=== PATIENT | male | born 1950 | race American Indian/Alaskan Native ===

== ENCOUNTER 2016-11-08 10:59 | Inpatient (IN) | payer OTHER ==
[2016-11-08 11:07] VITALS: BMI 33.9
[2016-11-08] MEDS ORDERED: Morphine 2 mg/ml ISec IVP STA ×2 (11:28→12:23)
--- NOTE | 2016-11-08 11:38 | ED PDOC ---
Arrival/HPI - General Time Seen by Provider: 11/08/16 11:03 Historian: Patient - History of Present Illness Narrative History of Present Illness (Text): 11/08/16 11:10 A 65 year old male, whose past medical history includes diabetes mellitus, lower extremity edema, CHF, and sciatica, presents to the emergency department with gradually worsening back pain due to sciatica, which began 1 month ago, but as of yesterday the patient states that he is unable to walk. The patient states the pain radiates from his left lower buttock down his left leg. The patient also reports of shortness of breath on exertion, which he associates with his back pain. He also notes of lower extremity edema and scrotal edema, states however this is chornic. Patient states he has not had any imaging of his back pain, and there is no associated known injury or trauma. Denies incontinence of urine or stool. Denies acute numbness or weakness to the legs. Time/Duration: Other (1 month) Symptom Onset: Gradual Symptom Course: Worsening Activities at Onset: Light Context: Home Past Medical History - Provider Review Nursing Documentation Reviewed: Yes Family/Social History - Physician Review Nursing Documentation Reviewed: Yes Family/Social History: Unknown Family HX Allergies/Home Meds Allergies/Adverse Reactions: Allergies No Known Allergies Allergy (Verified 11/08/16 11:14) Home Medications: Home Meds Medication Instructions Recorded Confirmed Unobtainable 11/08/16 11/08/16 Review of Systems - Review of Systems Constitutional: absent: Fevers Eyes: absent: Vision Changes ENT: absent: Hearing Changes Respiratory: SOB Cardiovascular: Edema, DASILVA. absent: Chest Pain Gastrointestinal: absent: Abdominal Pain, Diarrhea, Nausea Genitourinary Male: Urinary Output Changes. absent: Dysuria Musculoskeletal: Back Pain Skin: Ulcer, Other Neurological: Gait Changes. absent: Headache, Focal Weakness Endocrine: absent: Polyuria Physical Exam - Physical Exam Narrative Physical Exam (Text): 11/08/16 11:42 Head: Atraumatic. Normocephalic. Eyes: PERRL. EOMI. Conjunctivae are not pale. ENT: Mucous membranes are moist and intact. Oropharynx is clear and symmetric. Neck: Supple. Full ROM. Positive JVD. No meningeal signs. Nontender. Cardiovascular: Regular rate. Regular rhythm. Systolic murmur noted. No rubs or gallops. Pulmonary/Chest: Rales at the bases, no tachypnea or respiratory distress noted. No accessory muscle usage. Abdominal: Distended but nontender there is edema to lower abdomen. Genitourinary: scrotal edema Back: No CVA tenderness. Severe lower lumbar paraspinal tenderness with direct palpation as well as left buttock pain, no erythema or edema or fluctuance noted , pain with straight leg testing. Extremities: Bilateral lower extremity edema. There are dressings on both feet/ ankles with no surrounding erythema or purulent drainage. Skin: Edema and ulcers noted to the lower extremity Neurological: Alert, awake, and oriented to person, place, time, and situation. Normal speech. No saddle anesthesia. Motor and sensory exam intact. No meningeal signs. Psychiatric: Good eye contact. Normal interaction, affect, and behavior. Vital Signs Reviewed: Yes Vital Signs Temp Pulse Resp BP Pulse Ox 11/08/16 16:32 65 18 141/71 11/08/16 15:47 65 18 141/71 100 11/08/16 14:59 143/75 11/08/16 14:00 67 18 143/75 100 11/08/16 12:09 69 18 145/79 100 11/08/16 11:07 98.0 F 73 18 148/87 100 Temperature: Afebrile Blood Pressure: Normal Pulse: Regular Respiratory Rate: Normal Appearance: Positive for: Non-Toxic, Uncomfortable Pain Distress: Severe Mental Status: Positive for: Alert and Oriented X 3 Medical Decision Making ED Course and Treatment: 11/08/16 11:42 Impression: A 65 year old male with back pain. Also has edema and SOB with exertion Differential Diagnosis included but are not limited to: Lumbar Radiculopathy vs. Lumbar Bone Disease vs. Sciatica vs chf, vs cad Plan: -- EKG -- Chest X-ray -- LS Spine AP/LAT -- Morphine -- Urinalysis -- Reassess and disposition Progress Notes: Patient has no prior visits in [facility] although history and PMHx reviewed with patient and family. He reports prior hx of CAD, CHF, chronic leg ulcers, HTN. Has had back pain for one month diagnosed as sciatica by his physician at [facility]. Reports he was referred to pain management but has not had any previous MRI or imaging of his back to his knowlege. He reports pain as "12/10". He states he was taking Advil for pain with no relief. On exam he is in severe discomfort, although neurovascular exam is initially intact. As he reports prior history of "kidney problems", NSAIDS not given, IV morphine given 11/08/16 12:20 Upon reevaluation patient does not have any relief from pain medication and I will be ordering an additional Morphine dosage. No obvious lytic lesions noted on xrays, although I feel patient requires further evaluation as pain has become more severe. CXR consistent with pulmonary vascular congestion, elevated BNP noted. Given sob with exertion, leg edema, elevated BNP suspect component of CHF, dose of Lasix ordered. Pain improved but persistent after Morphine. Denies prior hx of known cancer, denies any other bony pain at this time. Patient noted to be anemic with elevated Cr. No baseline available at this time. Will admit for CHF, renal insufficiency, anemia, intractable back pain. Case discussed with Dr. Gaurav Avery covering for on-call physician, accepts patient to Dr. Faith' service. Case d/w resident covering for Dr. Faith, care transferred to admitting team. - Lab Interpretations Lab Results: 11/08/16 11:30 11/08/16 11:30 Lab Results 11/08/16 13:00: NT-Pro-B Natriuret Pep 07614 H 11/08/16 11:30: Retic Count 2.00 H 11/08/16 11:30: Digoxin 0.8 11/08/16 11:30: Sodium 148, Potassium 4.7, Chloride 115 H, Carbon Dioxide 22, Anion Gap 16, BUN 100 H, Creatinine 3.3 H, Est GFR ( Amer) 23, Est GFR ( Non-Af Amer) 19, Random Glucose 155 H, Calcium 8.8, Total Bilirubin 1.4 H, AST 42, ALT 31, Alkaline Phosphatase 190 H, Lactate Dehydrogenase 1096 H, Total Creatine Kinase 278 H, CK-MB (CK-2) 5.3 H, CK-MB (CK-2) % 1.9 L, Troponin I 0.09 , Total Protein 7.3, Albumin 3.1, Globulin 4.2, Albumin/Globulin Ratio 0.7 L 11/08/16 11:30: PT 16.1 H, INR 1.49 H, APTT 29.0 11/08/16 11:30: WBC 11.0, RBC 3.28 L, Hgb 9.5 L, Hct 30.2 L, MCV 92.1, MCH 29.0 , MCHC 31.5, RDW 19.7 H, Plt Count 172, MPV 10.7, Gran % 86.4 H, Lymph % (Auto) 5.7 L, [place] % (Auto) 4.5, Eos % (Auto) 3.2, Baso % (Auto) 0.2, Gran # 9.53 H, Lymph # 0.6 L, [place] # 0.5, Eos # 0.4, Baso # 0.02, Corrected WBC (Man) Cancelled , Neutrophils % (Manual) Cancelled, Band Neutrophils % Cancelled, Lymphocytes % (Manual) Cancelled, Atypical Lymphs % Cancelled, Monocytes % (Manual) Cancelled , Eosinophils % (Manual) Cancelled, Basophils % (Manual) Cancelled, Metamyelocytes % Cancelled, Myelocytes % Cancelled, Promyelocytes % Cancelled, Nucleated RBC % Cancelled, Hypersegmented Polys Cancelled, Immature Lymphocytes Cancelled, Blast Cells Cancelled, Smudge Cells Cancelled, Toxic Granulation Cancelled, Dohle Bodies Cancelled, Belkis Rods Cancelled, Platelet Evaluation Cancelled, Plt Clumps, EDTA Cancelled, Large Platelets Cancelled, Giant Platelets Cancelled, Polychromasia Cancelled, Hypochromasia Cancelled, Hyperchromasia Cancelled, Poikilocytosis (manual Cancelled, Basophilic Stippling Cancelled, Anisocytosis (manual) Cancelled, Microcytosis (manual) Cancelled, Macrocytosis (manual) Cancelled, Spherocytes Cancelled, Sickle Cells Cancelled, Target Cells Cancelled, Tear Drop Cells Cancelled, Ovalocytes Cancelled, Stomatocytes Cancelled, Helmet Cells Cancelled, [place] Rings Cancelled , Mcgregor Cells Cancelled, Acanthocytes (Spur) Cancelled, Rouleaux Cancelled I have reviewed the lab results: Yes - RAD Interpretation Radiology Orders: 11/08/16 11:27 CHEST ONE VIEW [RAD] Stat 11/08/16 11:28 LS SPINE AP/LAT [RAD] Stat - EKG Interpretation EKG Interpretation (Text): EKG at 11:30 normal sinus rhythm rate of 69 with low voltage qs, no prior for comparison Interpreted by ED Physician: Yes Type: 12 lead EKG - Medication Orders Current Medication Orders: Aspirin (Aspirin Chewable) 81 mg PO DAILY [facility] Atorvastatin Calcium (Lipitor) 40 mg PO DIN JAVIER Carvedilol (Coreg) 3.125 mg PO BID JAVIER Furosemide (Lasix) 40 mg IVP Q12 [facility] Heparin Sodium (Porcine) (Heparin) 5,000 units SC Q12 JAVIER PRN Reason: Protocol Last Admin: 11/08/16 21:26 Dose: 5,000 units Insulin Human Regular (Humulin R Low) 0 units SC ACHS JAVIER PRN Reason: Protocol Last Admin: 11/08/16 17:50 Dose: 2 units Morphine Sulfate (Morphine) 2 mg IVP Q4H PRN PRN Reason: Pain, severe (8-10) Pantoprazole Sodium (Protonix Inj) 40 mg IVP DAILY JAVIER Spironolactone (Aldactone) 25 mg PO BID JAVIER Discontinued Medications Furosemide (Lasix) 40 mg IVP ONCE ONE Stop: 11/08/16 14:16 Last Admin: 11/08/16 14:59 Dose: 40 mg Insulin Human Regular (Humulin R) Confirm Administered Dose 2 units .ROUTE .STK- MED ONE Stop: 11/08/16 17:27 Morphine Sulfate (Morphine) 2 mg IVP STAT STA Stop: 11/08/16 11:29 Last Admin: 11/08/16 12:02 Dose: 2 mg Morphine Sulfate (Morphine) 4 mg IVP STAT STA Stop: 11/08/16 12:26 Last Admin: 11/08/16 12:56 Dose: 4 mg - Scribe Statement The provider has reviewed the documentation as recorded by the Antonieta Delatorre Provider Scribe Attestation: All medical record entries made by the Edieibbrock were at my direction and personally dictated by me. I have reviewed the chart and agree that the record accurately reflects my personal performance of the history, physical exam, medical decision making, and the department course for this patient. I have also personally directed, reviewed, and agree with the discharge instructions and disposition. Disposition/Present on Arrival - Present on Arrival Any Indicators Present on Arrival: No - Disposition Have Diagnosis and Disposition been Completed?: Yes Diagnosis: CHF (congestive heart failure), Intractable low back pain, Renal insufficiency , Anemia, Leg ulcer Disposition: HOSPITALIZED Disposition Time: 13:20 Patient Plan: Admission, Telemetry Patient Problems: Current Active Problems Problem Status Onset Anemia Acute CHF (congestive heart failure) Acute Intractable low back pain Acute Leg ulcer Acute Renal insufficiency Acute Condition: SERIOUS
[2016-11-08] MEDS ORDERED: Morphine 4 mg/ml ISec IVP STA (12:25)
[2016-11-08 12:28] LABS: BASO # 0.02 K/mm3 (0.0-2.0); BASO % 0.2 % (0.0-3.0); EOS # 0.4 (0.0-0.7); EOS % 3.2 % (1.5-5.0); GRAN # 9.53 (1.4-6.5); GRAN % 86.4 % (50.0-68.0); HEMATOCRIT 30.2 % (42.0-52.0); LYMPH # 0.6 (1.2-3.4); LYMPH % 5.7 % (22.0-35.0); MEAN CELL VOLUME 92.1 fl (80.0-105.0); MEAN CORPUSCULAR HGB CONC 31.5 g/dl (31.0-37.0); MEAN PLATELET VOLUME 10.7 fl (7.0-11.0); MONO # 0.5 (0.1-0.6); MONO % 4.5 % (1.0-6.0); RED CELL DISTRIBUTION WIDTH 19.7 % (11.5-14.5)
[2016-11-08 12:37] LABS: INR 1.49 (0.93-1.08)
[2016-11-08 12:38] LABS: ALB/GLOB RATIO 0.7 (1.1-1.8); BILIRUBIN,TOTAL 1.4 mg/dL (0.2-1.3); CALCIUM 8.8 mg/dL (8.4-10.5); POTASSIUM 4.7 mmol/L (3.6-5.0); TOTAL PROTEIN 7.3 g/dL (5.8-8.3)
[2016-11-08 12:50] LABS: TROPONIN I 0.09 ng/mL
--- NOTE | 2016-11-08 15:49 | CP.PCM.HP ---
History of Present Illness - History of Present Illness History of Present Illness: cc: back pain HPI: Mr. Fuentes is a 65yo male with past medical history of CHF (unknown EF), CKD (unknown staging or baseline Cr), DMT2, Sciatica, hypertension, YASMIN on CPAP that presents c/o low back pain. Patient reported that his low back pain has been gradually worsening over the last month and radiates into his left leg. He also reported that he has a history of congestive heart failure for which he was being treated by his staff midwife, Dr. Narinder Rivero in [place], [place]. He states that over the last 6 months he has gained approximately 20lbs in weight and has been having intermittent dyspnea which is exacerbated when laying flat. He reported that he had moved from [place], [place] 3 days prior and has not yet established any doctors in the area. Patient stated that the back pain in conjunction with his difficulty breathing had prompted him to come to the emergency room. He denied chest pain, palpitations, fever, chills, cough, abdominal pain, nausea, vomiting, focal weakness, numbness, tingling. 12point ROS as per HPI above, otherwise negative PMHx: CHF (unknown EF), CKD (unknown staging or baseline Cr), DMT2, Sciatica, hypertension, YASMIN on CPAP PSHx: Left foot debridement by Dr. Ellis Caballero DPM (August 2015) Allergies: NKDA Social Hx: , lives with his ; Denies tobacco use, social alcohol use , denies illicit drugs Family Hx: Father: unknown; Mother: 96yo, DMT2; no siblings Medications: Unknown to patient; Obtains his mediations from [facility] in [place], [place] ([phone]); attempted to call pharmacy however they close at 1pm on Wednesday [employer] Set Up Operator: Dr. Narinder Rivero Uptwist Spinner: Dr. Loza Present on Admission - Present on Admission Any Indicators Present on Admission: No Past Patient History - Past Social History Smoking Status: Never Smoked - CARDIAC Hx Congestive Heart Failure: Yes (B/L LL +3 edema) Hx Hypertension: Yes - RENAL Hx Renal Failure: Yes (as per pt "his numbers are off") - ENDOCRINE/METABOLIC Hx Diabetes Mellitus Type 2: Yes - PSYCHIATRIC Hx Substance Use: No - SURGICAL HISTORY Hx Surgeries: Yes Other/Comment: L great toe debridement - ANESTHESIA Hx Anesthesia: Yes Hx Anesthesia Reactions: No Hx Malignant Hyperthermia: No Meds Allergies/Adverse Reactions: Allergies Allergy/AdvReac Type Severity Reaction Status Date / Time No Known Allergies Allergy Verified 11/08/16 11:14 Physical Exam - Constitutional Appears: Non-toxic, No Acute Distress - Head Exam Head Exam: ATRAUMATIC, NORMAL INSPECTION, NORMOCEPHALIC - Eye Exam Eye Exam: EOMI, PERRL - ENT Exam ENT Exam: Mucous Membranes Moist - Neck Exam Neck exam: Positive for: Normal Inspection - Respiratory Exam Respiratory Exam: Clear to Auscultation Bilateral. absent: Rales, Rhonchi, Wheezes - Cardiovascular Exam Cardiovascular Exam: RRR, +S1, +S2. absent: Gallop, Rubs - GI/Abdominal Exam GI & Abdominal Exam: Distended, Soft. absent: Firm, Guarding, Rebound, Tenderness - Extremities Exam Additional comments: 2-3+ pitting edema up to the shins malodorous feet, onychomycosis - Neurological Exam Neurological exam: Alert, Oriented x3 - Psychiatric Exam Psychiatric exam: Normal Affect, Normal Mood - Skin Skin Exam: Dry, Intact, Normal Color, Warm Results - Vital Signs Recent Vital Signs: Last Vital Signs Temp 98.0 F 11/08/16 11:07 Pulse 67 11/08/16 14:00 Resp 18 11/08/16 14:00 BP 143/75 11/08/16 14:59 Pulse Ox 100 11/08/16 14:00 - Labs Result Diagrams: 11/08/16 11:30 11/08/16 11:30 Assessment & Plan - Assessment and Plan (Free Text) Plan: 65yo male with extensive history including CHF, CKD, YASMIN, HTN, DM2 presents c/o low back pain and dyspnea 1. CHF -Patient admitted to telemetry for monitoring -EKG reviewed; revealed sinus rhythm at 69bpm, low voltage qrs, possible anterolateral infarct (age undetermined) -CXR reviewed; cardiomegaly with pulmonary vascular congestion (read by me, official read pending) -Troponin 0.09 indeterminate, will trend [place] [id number] -Patient started on lasix 40mg IVP q12h, aldactone 25mg PO BID, coreg 3.125mg PO BID pending pharmacy medications reconciliation -Echocardiogram pending -Strict I's and O's -Daily Weight -HOB > 45' -Cardiology consulted - Dr. Watt 2. Low back pain -Lumbar spine x-ray pending -Pain control 3. CKD -Unknown staging/baseline; Creatinine on admission 3.3, will trend -Urine studies pending: random urine sodium, creatinine, urea -Will avoid nephrotoxic agents and renally dose medications -Nephrology consulted - Dr. Carreon 4. DM type 2 -Consistent carb/heart healthy diet -Fingersticks ACHS -Humulin low dose ISS -Oral agents held 5. Anemia -Anemia workup pending including: Iron, Ferritin, TIBC, B12, Folate, Reticulocyte count -No overt signs of bleeding, will continue to follow H/H 6. Hypertension -Antihypertensives pending confirmation with patient's pharmacy; in the meantime , continue lasix and aldactone 7. YASMIN -CPAP at night; titrate to maintain O2sat > 90% 8. GI/DVT Prophylaxis -Protonix/Heparin SC Patient seen and case discussed with attending, Dr. Avery - Date & Time Date: 11/08/16 Time: 15:52
[2016-11-08 16:43] LABS: IRON 26 ug/dL (45-180)
--- NOTE | 2016-11-08 17:13 | RAD ---
PROCEDURE: CHEST RADIOGRAPH, 1 VIEW HISTORY: sob with exertion COMPARISON: None available. FINDINGS: LUNGS: Clear. PLEURA: No pneumothorax or pleural fluid seen. CARDIOVASCULAR: Mild cardiomegaly. OSSEOUS STRUCTURES: No significant abnormalities. VISUALIZED UPPER ABDOMEN: Normal. OTHER FINDINGS: None. IMPRESSION: Mild cardiomegaly. No infiltrate.
--- NOTE | 2016-11-08 17:13 | RAD ---
PROCEDURE: Radiographs of the Lumbar Spine. HISTORY: atraumatic severe back pain COMPARISON: No prior. FINDINGS: BONES: Normal alignment. No listhesis. No fracture. DISC SPACES: Unremarkable. OTHER FINDINGS: None. IMPRESSION: Unremarkable radiographs of the lumbar spine.
[2016-11-08] MEDS ORDERED: Insulin Regular 1 UNITS/0.01 ML ML ONE (17:26)
[2016-11-08] MEDS: Insulin Reg-LOW-Coverage SC SCH ×2 (17:50→21:59)
[2016-11-08 22:10] LABS: URINE BILIRUBIN NEGATIVE (NEGATIVE); URINE BLOOD NEGATIVE (NEGATIVE); URINE GLUCOSE (UA) NEGATIVE (NEGATIVE); URINE KETONE NEGATIVE (NEGATIVE); URINE LEUKOCYTE ESTERASE NEGATIVE Leu/uL (NEGATIVE); URINE PROTEIN NEGATIVE mg/dL (<30 mg/dL); URINE UROBILINOGEN 0.2 E.U./dL (<1 E.U./dL)
[2016-11-08 22:17] LABS: URINE APPEARANCE CLEAR (CLEAR); URINE COLOR YELLOW (YELLOW)
[2016-11-09 07:40] LABS: BASO # 0.01 K/mm3 (0.0-2.0); BASO % 0.1 % (0.0-3.0); EOS # 0.5 (0.0-0.7); EOS % 3.3 % (1.5-5.0); GRAN % 88.8 % (50.0-68.0); HEMATOCRIT 32.3 % (42.0-52.0); LYMPH # 0.5 (1.2-3.4); LYMPH % 3.4 % (22.0-35.0); MEAN CORPUSCULAR HEMOGLOBIN 27.6 pg (25.0-35.0); MEAN PLATELET VOLUME 11.3 fl (7.0-11.0); MONO # 0.6 (0.1-0.6); MONO % 4.4 % (1.0-6.0); PLATELET COUNT 177 10^3/uL (120.0-450.0); RED CELL DISTRIBUTION WIDTH 19.7 % (11.5-14.5); WHITE BLOOD COUNT 13.7 10^3/ul (4.5-11.0)
[2016-11-09 07:49] LABS: INR 1.43 (0.93-1.08)
[2016-11-09 08:07] LABS: ALB/GLOB RATIO 0.7 (1.1-1.8); BILIRUBIN,TOTAL 1.6 mg/dL (0.2-1.3); CALCIUM 8.6 mg/dL (8.4-10.5); MAGNESIUM 2.5 mg/dL (1.7-2.2); PHOSPHOROUS 3.5 mg/dL (2.5-4.5); TOTAL PROTEIN 7.3 g/dL (5.8-8.3)
[2016-11-09] MEDS: Insulin Reg-LOW-Coverage SC SCH ×4 (08:26→22:24)
[2016-11-09 08:27] LABS: POTASSIUM 4.4 mmol/L (3.6-5.0)
[2016-11-09 08:40] LABS: EOSINOPHIL 4 % (0.0-3.0); HYPOCHROMIA SLIGHT; NEUTROPHIL 86 % (50.0-70.0); PLATELET ESTIMATE NORMAL (NORMAL)
[2016-11-09 08:41] LABS: ANISOCYTOSIS 2+; HELMET CELLS SLIGHT; OVALOCYTES SLIGHT; POIKILOCYTOSIS 1+; TEAR DROP CELLS SLIGHT
--- NOTE | 2016-11-09 10:13 | CARD ---
APPROVED REPORT EKG Measurement Heart [id number] <Conclusion> Normal sinus rhythm Low voltage QRS Possible Anterolateral infarct, age undetermined Abnormal ECG
[2016-11-09] MEDS ORDERED: Primacor 1 mg/ml Inj (10 ml) IVP ONE (10:58)
--- NOTE | 2016-11-09 11:24 | CP.PCM.CON ---
<Archana Rosales - Last Filed: 11/09/16 11:59> History of Present Illness - History of Present Illness History of Present Illness: Mr. Fuentes is a 65yo male patient with PMHx of CHF, CKD, DM2, HTN was seen at bedside this morning with Dr. Contreras concerning open ulcerations to Right bimalleolar aspect as well as Left dorsal aspect of 1st ray. Patient states that he had an abscess formation to left foot dorsal aspect one year ago and his foot doctor did an incision and drainage. The patient had an open wound to the site of incision and drainage since the surgery. He also mentions of two small ulcerations to right ankle one each to malleolus. Patient states that right ankle ulcerations started about 3 months ago from wearing a boot. Patient denies of any N/V/F/C or SOB today Past Patient History - Past Social History Smoking Status: Never Smoked - CARDIAC Hx Congestive Heart Failure: Yes (B/L LL +3 edema) Hx Hypertension: Yes - RENAL Hx Renal Failure: Yes (as per pt "his numbers are off") - ENDOCRINE/METABOLIC Hx Diabetes Mellitus Type 2: Yes - MUSCULOSKELETAL/RHEUMATOLOGICAL Hx Falls: No - PSYCHIATRIC Hx Substance Use: No - SURGICAL HISTORY Hx Surgeries: Yes Other/Comment: L great toe debridement - ANESTHESIA Hx Anesthesia: Yes Hx Anesthesia Reactions: No Hx Malignant Hyperthermia: No Meds Allergies/Adverse Reactions: Allergies Allergy/AdvReac Type Severity Reaction Status Date / Time No Known Allergies Allergy Verified 11/08/16 11:14 - Medications Medications: Current Medications Aspirin (Aspirin Chewable) 81 mg PO DAILY [facility] Last Admin: 11/09/16 10:16 Dose: 81 mg Atorvastatin Calcium (Lipitor) 40 mg PO DIN [facility] Carvedilol (Coreg) 3.125 mg PO BID [facility] Last Admin: 11/09/16 10:16 Dose: 3.125 mg Ferrous Sulfate (Feosol) 324 mg PO TID [facility] Furosemide (Lasix) 40 mg IVP Q12 [facility] Last Admin: 11/09/16 10:14 Dose: 40 mg Heparin Sodium (Porcine) (Heparin) 5,000 units SC Q12 [facility] PRN Reason: Protocol Last Admin: 11/09/16 10:15 Dose: 5,000 units Milrinone Lactate/Dextrose (Primacor 20mg/100ml D5w) 100 mls @ 15.156 mls/hr IV .Q6H36M PRN; Protocol; 0.375 MCG/KG/MIN PRN Reason: TITRATE PER MD ORDER Insulin Human Regular (Humulin R Low) 0 units SC ACHS [facility] PRN Reason: Protocol Last Admin: 11/09/16 08:26 Dose: Not Given Isosorbide Dinitrate (Isordil) 10 mg PO BID [facility] Last Admin: 11/09/16 10:17 Dose: 10 mg Morphine Sulfate (Morphine) 2 mg IVP Q4H PRN PRN Reason: Pain, severe (8-10) Pantoprazole Sodium (Protonix Inj) 40 mg IVP DAILY [facility] Last Admin: 11/09/16 10:12 Dose: 40 mg Spironolactone (Aldactone) 25 mg PO BID [facility] Last Admin: 11/09/16 10:16 Dose: 25 mg Physical Exam - Constitutional Appears: Well, Non-toxic, No Acute Distress - Head Exam Head Exam: ATRAUMATIC - Extremities Exam Additional comments: bilateral lower extremities exam DERM: Right - Open ulceration noted to either sides of malleolus each measuring 1cm x 1cmx 0.2cm with 100% fibrotic bases. Mild serous drainage is noted from both wounds. No purulent discharge is noted. No sign of acute infections is noted. No PTB Left - Open ulceration to dorsal aspect of Left 1st metatarsal measuring 7cm x 2cm x 0.2cm with 100% fibrotic base. No drainage is noted. No purulent discharge noted. No mal-odor is noted. No erythema around the wound is noted. No maceration noted to the wound edges. No sign of acute infections is noted. No PTB VASC: Non-palpable DP and PT noted bilaterally. ORDER WORKER less than 3 seconds to all digits noted. ORTHO: Mild pain induced on palpation to ulcerations. Decreased ROM to joints distal to ankle NEURO: Gross sensation diminished to distal aspect of bilateral feet, tested with monofilament 9 points plantar feet - Neurological Exam Neurological exam: Alert, Oriented x3 - Psychiatric Exam Psychiatric exam: Normal Affect, Normal Mood - Skin Skin Exam: Normal Color, Warm Results - Vital Signs Recent Vital Signs: Last Vital Signs Temp 97.9 F 11/09/16 06:00 Pulse 88 11/09/16 10:16 Resp 20 11/09/16 06:00 BP 145/90 11/09/16 10:16 Pulse Ox 100 11/09/16 06:00 - Labs Result Diagrams: 11/09/16 07:10 11/09/16 07:10 Labs: Laboratory Results - last 24 hr 11/08/16 11/08/16 11/08/16 15:47 16:00 16:00 WBC RBC Hgb Hct MCV MCH MCHC RDW Plt Count MPV Gran % Lymph % (Auto) [place] % (Auto) Eos % (Auto) Baso % (Auto) Gran # Lymph # [place] # Eos # Baso # Neutrophils % (Manual) Lymphocytes % (Manual) Monocytes % (Manual) Eosinophils % (Manual) Platelet Evaluation Hypochromasia Poikilocytosis (manual Anisocytosis (manual) Tear Drop Cells Ovalocytes Helmet Cells PT INR Sodium Potassium Chloride Carbon Dioxide Anion Gap BUN Creatinine Est GFR ( Amer) Est GFR (Non-Af Amer) POC Glucose (mg/dL) 223 H Random Glucose Hemoglobin A1c 7.2 H Calcium Phosphorus Magnesium Iron TIBC % Saturation Ferritin 119.0 Total Bilirubin AST ALT Alkaline Phosphatase Troponin I Total Protein Albumin Globulin Albumin/Globulin Ratio Triglycerides 79 Cholesterol 112 L LDL Cholesterol Direct 54 HDL Cholesterol 24 L Vitamin B12 868 TSH 3rd Generation Urine Color Urine Appearance Urine pH Ur Specific [place] Urine Protein Urine Glucose (UA) Urine Ketones Urine Blood Urine Nitrate Urine Bilirubin Urine Urobilinogen Ur Leukocyte Esterase Ur Random Creatinine Ur Random Sodium Ur Random Urea Nitrogn 11/08/16 11/08/16 11/08/16 16:00 16:00 19:05 WBC RBC Hgb Hct MCV MCH MCHC RDW Plt Count MPV Gran % Lymph % (Auto) [place] % (Auto) Eos % (Auto) Baso % (Auto) Gran # Lymph # [place] # Eos # Baso # Neutrophils % (Manual) Lymphocytes % (Manual) Monocytes % (Manual) Eosinophils % (Manual) Platelet Evaluation Hypochromasia Poikilocytosis (manual Anisocytosis (manual) Tear Drop Cells Ovalocytes Helmet Cells PT INR Sodium Potassium Chloride Carbon Dioxide Anion Gap BUN Creatinine Est GFR ( Amer) Est GFR (Non-Af Amer) POC Glucose (mg/dL) Random Glucose Hemoglobin A1c Calcium Phosphorus Magnesium Iron 26 L TIBC 265 % Saturation 10 L Ferritin Total Bilirubin AST ALT Alkaline Phosphatase Troponin I 0.07 D Total Protein Albumin Globulin Albumin/Globulin Ratio Triglycerides Cholesterol LDL Cholesterol Direct HDL Cholesterol Vitamin B12 TSH 3rd Generation 3.93 Urine Color Urine Appearance Urine pH Ur Specific [place] Urine Protein Urine Glucose (UA) Urine Ketones Urine Blood Urine Nitrate Urine Bilirubin Urine Urobilinogen Ur Leukocyte Esterase Ur Random Creatinine Ur Random Sodium Ur Random Urea Nitrogn 11/08/16 11/08/16 11/08/16 20:58 20:58 21:59 WBC RBC Hgb Hct MCV MCH MCHC RDW Plt Count MPV Gran % Lymph % (Auto) [place] % (Auto) Eos % (Auto) Baso % (Auto) Gran # Lymph # [place] # Eos # Baso # Neutrophils % (Manual) Lymphocytes % (Manual) Monocytes % (Manual) Eosinophils % (Manual) Platelet Evaluation Hypochromasia Poikilocytosis (manual Anisocytosis (manual) Tear Drop Cells Ovalocytes Helmet Cells PT INR Sodium Potassium Chloride Carbon Dioxide Anion Gap BUN Creatinine Est GFR ( Amer) Est GFR (Non-Af Amer) POC Glucose (mg/dL) 165 H Random Glucose Hemoglobin A1c Calcium Phosphorus Magnesium Iron TIBC % Saturation Ferritin Total Bilirubin AST ALT Alkaline Phosphatase Troponin I Total Protein Albumin Globulin Albumin/Globulin Ratio Triglycerides Cholesterol LDL Cholesterol Direct HDL Cholesterol Vitamin B12 TSH 3rd Generation Urine Color Yellow Urine Appearance Clear Urine pH 5.0 Ur Specific [place] 1.015 Urine Protein Negative Urine Glucose (UA) Negative Urine Ketones Negative Urine Blood Negative Urine Nitrate Negative Urine Bilirubin Negative Urine Urobilinogen 0.2 Ur Leukocyte Esterase Negative Ur Random Creatinine 73 Ur Random Sodium 65 Ur Random Urea Nitrogn 655 11/09/16 11/09/16 11/09/16 01:08 07:10 07:10 WBC 13.7 H D RBC 3.51 Hgb 9.7 L Hct 32.3 L MCV 92.0 MCH 27.6 MCHC 30.0 L RDW 19.7 H Plt Count 177 MPV 11.3 H Gran % 88.8 H Lymph % (Auto) 3.4 L [place] % (Auto) 4.4 Eos % (Auto) 3.3 Baso % (Auto) 0.1 Gran # 12.20 H Lymph # 0.5 L [place] # 0.6 Eos # 0.5 Baso # 0.01 Neutrophils % (Manual) 86 H Lymphocytes % (Manual) 5 L Monocytes % (Manual) 5 Eosinophils % (Manual) 4 H Platelet Evaluation Normal Hypochromasia Slight Poikilocytosis (manual 1+ Anisocytosis (manual) 2+ Tear Drop Cells Slight Ovalocytes Slight Helmet Cells Slight PT INR Sodium 149 H Potassium 4.4 Chloride 116 H Carbon Dioxide 22 Anion Gap 15 BUN 95 H Creatinine 2.9 H Est GFR ( Amer) 27 Est GFR (Non-Af Amer) 22 POC Glucose (mg/dL) Random Glucose 102 Hemoglobin A1c Calcium 8.6 Phosphorus 3.5 Magnesium 2.5 H Iron TIBC % Saturation Ferritin Total Bilirubin 1.6 H AST 37 ALT 30 Alkaline Phosphatase 180 H Troponin I 0.08 Total Protein 7.3 Albumin 3.0 Globulin 4.3 Albumin/Globulin Ratio 0.7 L Triglycerides Cholesterol LDL Cholesterol Direct HDL Cholesterol Vitamin B12 TSH 3rd Generation Urine Color Urine Appearance Urine pH Ur Specific [place] Urine Protein Urine Glucose (UA) Urine Ketones Urine Blood Urine Nitrate Urine Bilirubin Urine Urobilinogen Ur Leukocyte Esterase Ur Random Creatinine Ur Random Sodium Ur Random Urea Nitrogn 11/09/16 11/09/16 07:10 07:20 WBC RBC Hgb Hct MCV MCH MCHC RDW Plt Count MPV Gran % Lymph % (Auto) [place] % (Auto) Eos % (Auto) Baso % (Auto) Gran # Lymph # [place] # Eos # Baso # Neutrophils % (Manual) Lymphocytes % (Manual) Monocytes % (Manual) Eosinophils % (Manual) Platelet Evaluation Hypochromasia Poikilocytosis (manual Anisocytosis (manual) Tear Drop Cells Ovalocytes Helmet Cells PT 15.4 H INR 1.43 H Sodium Potassium Chloride Carbon Dioxide Anion Gap BUN Creatinine Est GFR ( Amer) Est GFR (Non-Af Amer) POC Glucose (mg/dL) 121 H Random Glucose Hemoglobin A1c Calcium Phosphorus Magnesium Iron TIBC % Saturation Ferritin Total Bilirubin AST ALT Alkaline Phosphatase Troponin I Total Protein Albumin Globulin Albumin/Globulin Ratio Triglycerides Cholesterol LDL Cholesterol Direct HDL Cholesterol Vitamin B12 TSH 3rd Generation Urine Color Urine Appearance Urine pH Ur Specific [place] Urine Protein Urine Glucose (UA) Urine Ketones Urine Blood Urine Nitrate Urine Bilirubin Urine Urobilinogen Ur Leukocyte Esterase Ur Random Creatinine Ur Random Sodium Ur Random Urea Nitrogn Assessment & Plan - Assessment and Plan (Free Text) Assessment: 65yo male with extensive history including CHF, CKD, YASMIN, HTN, DM2 presents with open ulcerations to bilateral lower extremities Perez Stage II Plan: Patient was seen, evaluated at bedside with attending Dr. Contreras Labs and vitals reviewed Right - Right lower extremity cleansed with Sterile normal saline. Maxorb and DSD applied to ulcerations bilateral malleolus Left - Left foot cleansed with Sterile normal saline and dressed with Xeroform and DSD Wound culture pending Bilateral feet Xray is ordered Arterial doppler is ordered Podiatry will follow in-house <Funmi Contreras - Last Filed: 11/22/16 19:26> Results - Vital Signs Recent Vital Signs: Last Vital Signs Temp 98.4 F 11/20/16 08:25 Pulse 73 11/20/16 13:21 Resp 20 11/20/16 08:25 BP 117/67 11/20/16 13:21 Pulse Ox 100 11/20/16 08:25 - Labs Result Diagrams: 11/20/16 06:50 11/20/16 06:50 Labs: Laboratory Results - last 24 hr 11/19/16 11:30 Peritoneal Tot Protein 4.0 Attending/Attestation - Attestation I have personally seen and examined this patient.: Yes I have fully participated in the care of the patient.: Yes I have reviewed all pertinent clinical information: Yes
[2016-11-09] MEDS: Milrinone 20mg/100ml D5W 100 ML IV PRN ×2 (13:38→19:57)
--- NOTE | 2016-11-09 14:50 | CP.PCM.PN ---
<MameCarlos arceo - Last Filed: 11/09/16 15:52> Subjective - Date & Time of Evaluation Date of Evaluation: 11/09/16 Time of Evaluation: 07:00 - Subjective Subjective: Pt s/e bedside. Patient states that his back pain has improved. He further states that his b/l LE swelling is chronic. We are awaiting his records to be transferred from [facility]. No further complaints at this time. Objective - Vital Signs/Intake and Output Vital Signs (last 24 hours): Temp Pulse Resp BP Pulse Ox 97.8 F 69 20 149/90 100 11/09/16 12:00 11/09/16 13:38 11/09/16 12:00 11/09/16 13:38 11/09/16 06:00 Intake and Output: 11/09/16 11/09/16 06:59 18:59 Intake Total 0 Output Total 601 Balance -601 - Medications Medications: Current Medications Aspirin (Aspirin Chewable) 81 mg PO DAILY [facility] Last Admin: 11/09/16 10:16 Dose: 81 mg Atorvastatin Calcium (Lipitor) 40 mg PO DIN [facility] Carvedilol (Coreg) 3.125 mg PO BID [facility] Last Admin: 11/09/16 10:16 Dose: 3.125 mg Ferrous Sulfate (Feosol) 324 mg PO TID [facility] Furosemide (Lasix) 40 mg IVP Q12 [facility] Last Admin: 11/09/16 10:14 Dose: 40 mg Heparin Sodium (Porcine) (Heparin) 5,000 units SC Q12 [facility] PRN Reason: Protocol Last Admin: 11/09/16 10:15 Dose: 5,000 units Milrinone Lactate/Dextrose (Primacor 20mg/100ml D5w) 100 mls @ 15.156 mls/hr IV .Q6H36M PRN; Protocol; 0.375 MCG/KG/MIN PRN Reason: TITRATE PER MD ORDER Last Admin: 11/09/16 13:38 Dose: 0.375 mcg/kg/min, 15.156 mls/hr Insulin Human Regular (Humulin R Low) 0 units SC ACHS [facility] PRN Reason: Protocol Last Admin: 11/09/16 12:22 Dose: 1 units Isosorbide Dinitrate (Isordil) 10 mg PO BID [facility] Last Admin: 11/09/16 10:17 Dose: 10 mg Morphine Sulfate (Morphine) 2 mg IVP Q4H PRN PRN Reason: Pain, severe (8-10) Pantoprazole Sodium (Protonix Inj) 40 mg IVP DAILY [facility] Last Admin: 11/09/16 10:12 Dose: 40 mg Spironolactone (Aldactone) 25 mg PO BID [facility] Last Admin: 11/09/16 10:16 Dose: 25 mg - Labs Labs: 11/09/16 07:10 11/09/16 07:10 PT 15.4 Seconds (9.9-11.8) H 11/09/16 07:10 INR 1.43 (0.93-1.08) H 11/09/16 07:10 APTT 29.0 Seconds (23.7-30.8) 11/08/16 11:30 - Additional Findings Additional findings: Phys Exam: VS as below Constitutional: a&o x 4, nad Head and Neck: neck supple, no jvd, trachea midline, carotid midline, no cervical/head mass Eyes: nai, nonicteric sclera, eom intact ENT: auditory acuity grossly intact, throat not congested, no nasal deformity Cardio: rrr, no m/r/g, no carotid bruit, nml s1, s2 Pulm: no accessory muscle use, equal nml breath sounds bilaterally, ctab MSK: +Mild TTP in the lumbar area on the left Abd: s/nt/nd, nbs x 4 q, no palpable masses Derm: no rashes, no ulcers, no lesions Extr: 2-3+ pitting edema; malodorous feet; onychomycosis. Bandages just changed by Podiatry Neuro: cn II-XII grossly intact, ue and le 5/5 muscle strength bilaterally, no los ue, le bilaterally and core Assessment and Plan - Assessment and Plan (Free Text) Assessment: 65yo male with extensive history including CHF, CKD, YASMIN, HTN, DM2 presents c/o low back pain and dyspnea Plan: 1. CHF -Patient admitted to telemetry for monitoring -EKG reviewed; revealed sinus rhythm at 69bpm, low voltage qrs, possible anterolateral infarct (age undetermined) -CXR reviewed; cardiomegaly -Troponin 0.09 indeterminate, will trend [place] [address] -Patient started on lasix 40mg IVP q12h, aldactone 25mg PO BID, coreg 3.125mg PO BID pending pharmacy medications reconciliation -Echocardiogram LVEF - 22.4% -Strict I's and O's -Daily Weight -HOB > 45' -Cardiology consulted - Dr. Watt Hold Bumex Milrinone Aldactone Lasix 2. Low back pain -Lumbar spine x-ray: no acute disease -Pain control 3. CKD -Unknown staging/baseline; Creatinine on admission 3.3, will trend -Urine studies pending: random urine sodium, creatinine, urea -Will avoid nephrotoxic agents and renally dose medications -Nephrology consulted - Dr. Carreon No acute need for renal replacement therapy at this time. discussed with patient that due to his advanced renal insuff, CHF and fluid overload, dialysis could be anticipated in near future such as months. Pt advised to abstain from NSAIDs completely. Hypertension control with meds as ordered. Patient on RAAS lei with aldactone Agree with iron supplements Continue with diuretics. Monitor Input/Output, daily weights and renal function with basic metabolic panel Check urine analysis, spot protein/creatinine and albumin/creatinine ratio, renal/bladder sonogram. Check for 25-OH vitamin D, iPTH level Check serum protein electrophoresis with immunofixation, kappa/lambda ratio also check HIV/Hep B and Hep C serology Dose meds/antibiotics for reduced GFR. Avoid fleets enema/magnesium based laxatives. Avoid nephrotoxins/NSAIDs/ iodinated contrast (unless needed emergently) Glycemic control 4. DM type 2 -Consistent carb/heart healthy diet -Fingersticks ACHS -Humulin low dose ISS -Oral agents held 5. Anemia -Anemia workup pending including: Iron, Ferritin, TIBC, B12, Folate, Reticulocyte count -No overt signs of bleeding, will continue to follow H/H 6. Hypertension -Antihypertensives pending confirmation with patient's pharmacy; in the meantime , continue lasix and aldactone 7. YASMIN -CPAP at night; titrate to maintain O2sat > 90% 8. GI/DVT Prophylaxis -Protonix/Heparin SC Records obtained from [facility] - Dr. Glover seen there for pain. No active pain management, patient needs to get a CT and MRI outpatient. Patient seen and case discussed with attending, Dr. Avery <Chris Ley - Last Filed: 12/31/16 18:46> Objective - Vital Signs/Intake and Output Vital Signs (last 24 hours): Temp Pulse Resp BP Pulse Ox 98.4 F 73 20 117/67 100 11/20/16 08:25 11/20/16 13:21 11/20/16 08:25 11/20/16 13:21 11/20/16 08:25 - Labs Labs: 11/20/16 06:50 11/20/16 06:50 PT 14.7 Seconds (9.9-11.8) H 11/18/16 09:50 INR 1.36 (0.93-1.08) H 11/18/16 09:50 APTT 31.6 Seconds (23.7-30.8) H 11/18/16 09:50 Attending/Attestation - Attestation I have personally seen and examined this patient.: Yes I have fully participated in the care of the patient.: Yes I have reviewed all pertinent clinical information, including history, physical exam and plan: Yes Notes (Text): 12/31/16 18:46 Medical record note made by the resident after discussion with my direction and input after the patient was personally seen and examined by me. I have reviewed the chart and agree that the record accurately reflects by personal performance of the history, physical exam, data review, and medical decision-making, in the course for the patient. I have also personally directed the plan of care.
--- NOTE | 2016-11-09 14:50 | CP.PCM.CON ---
History of Present Illness - History of Present Illness History of Present Illness: Initial Nephrology Consultation: Assessment: Stable Acute Kidney Injury (N17.9) possibly due to Chronic NSAIDs use. also contribution by his severe CHF (cardio-renal) Fluid overload, Anasarca with CHF exacerbation Diabetic chronic Kidney Disease (E11.22) Hypertensive Chronic Kidney Disease (I12.9) Chronic Kidney Disease (N18.9) Stage ? without proteinuria (R80.9) possibly due to his long standing hx of DM/HTN Anemia (D64.9), HTN (I12.9), DM, CHF, Morbid obesity, YASMIN on CPAP, back pain, Hypernatremia, heel ulcers, ventral hernia. Plan No acute need for renal replacement therapy at this time. discussed with patient that due to his advanced renal insuff, CHF and fluid overload, dialysis could be anticipated in near future such as months. Pt advised to abstain from NSAIDs completely. Hypertension control with meds as ordered. Patient on RAAS lei with aldactone Agree with iron supplements continue with diuretics. f/up echo results. pt also on inotropes with milrinone. Monitor Input/Output, daily weights and renal function with basic metabolic panel Check urine analysis, spot protein/creatinine and albumin/creatinine ratio, renal/bladder sonogram. Check for 25-OH vitamin D, iPTH level Check serum protein electrophoresis with immunofixation, kappa/lambda ratio also check HIV/Hep B and Hep C serology Dose meds/antibiotics for reduced GFR. Avoid fleets enema/magnesium based laxatives. Avoid nephrotoxins/NSAIDs/ iodinated contrast (unless needed emergently) Glycemic control Further work up/management as per primary team Thanks for allowing me to participate in care of your patient. Will follow patient with you. 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 He has been taking NSAIDs as Advil (3 tab) and alleve (2 tab) per day on most days for last few weeks to control his pain. He denies any urinary complaints such as heistancy or intermittency or nocturia he does feel swollen, like a balloon. Denies chest pain, palpitation, shortness of breath,c/o leg swelling Denies blood or bubbles in urine Denies OTC/herbal meds No recent iodinated contrast exposure. No obvious episodes of low BP. ROS: Constitutional Symptoms: Denies fever. No chills. had gained weight Eyes: denies change in vision, denies watery eyes, denies double vision Ears/Nose/Mouth/Throat: Denies Abnormal Taste. No Bad breath no Bad Taste. Cardiovascular: No chest pain. There is no shortness of breath. No palpitations. Pulmonary: No shortness of breath no cough. Gastrointestinal: denies abdominal pain No nausea. No vomiting. Denies change in bowel habits. Denies Bleeding Genitourinary: No Change in force of strain when urinating. No increase in urinary frequency. No pain while urinating. Denies blood in urine. Neurological: Denies headaches. No dizziness. Denies loss of balance. Denies weakness, denies tingling/numbness Dermatological: No Rash or Bruising but had heel/feet ulcers. Psychiatric: Denies Anxiety. No depression. Denies hallucinations. Rheumatological: c/o low back pain. Denies Joint swelling Endocrine: Denies tiredness/Fatigue denies Heat/Cold Intolerance. All other negative Physical Examination: General Appearance: Comfortable, in no acute respiratory distress, co-operative . Obese Vitals reviewed and noted as below Head; Atraumatic, normocephalic ENT: no ulcers no thrush. Tongue is midline. Oropharynx: no rash or ulcers. EYES: Pupils are equal, round and reactive to light accommodation. Eye muscles and extraocular movement intact. Sclera is anicteric. Neck; supple no lymphadenopathy, no thyromegaly or bruit Lungs: Normal respiratory rate/effort. Breath sounds bilateral equal and clear except somewhat decreased at bases Heart: Normal rate. s1s2 normal. No rub or gallop. Extremities: 2+ edema with chronic venous stasis changes in legs and skin very thickened to touch. No varicose veins. both heels dressed Neurological: Patient is alert, awake and oriented to person, place and time. No focal deficit. Strength bilateral appropriate and equal Skin: Warm and dry. Normal turgor. No rash. Palpitation: Normal elasticity for age Abdomen: Abdomen is distended. has midline ventral hernia. has abdomen wall edema. Bowel sounds +. There is no abdominal tenderness, no guarding/rigidity. Unable to examine/appreciate organomegaly due to obesity/edema and distension of abdomen Psych: normal insight and normal affect/mood MSK: no joint tenderness or swelling. Digits and nails normal, no deformity : kidney or bladder not palpable but exam very limited. has scrotal edema Labs/imaging/EKG reviewed. Past medical history, past surgical history, family history, social history, allergy reviewed and noted as below Family hx: no hx of CKD. Rest non-contributory Work up: UA: no blood or prot Phos 3.5 Mg 2.5 Albumin 3 TSAT 10% Ferritin 101 CXr: pulm congestion Echo: results pending Past Patient History - Past Social History Smoking Status: Never Smoked - CARDIAC Hx Congestive Heart Failure: Yes (B/L LL +3 edema) Hx Hypertension: Yes - RENAL Hx Renal Failure: Yes (as per pt "his numbers are off") - ENDOCRINE/METABOLIC Hx Diabetes Mellitus Type 2: Yes - MUSCULOSKELETAL/RHEUMATOLOGICAL Hx Falls: No - PSYCHIATRIC Hx Substance Use: No - SURGICAL HISTORY Hx Surgeries: Yes Other/Comment: L great toe debridement - ANESTHESIA Hx Anesthesia: Yes Hx Anesthesia Reactions: No Hx Malignant Hyperthermia: No Meds Allergies/Adverse Reactions: Allergies Allergy/AdvReac Type Severity Reaction Status Date / Time No Known Allergies Allergy Verified 11/08/16 11:14 - Medications Medications: Current Medications Aspirin (Aspirin Chewable) 81 mg PO DAILY [facility] Last Admin: 11/09/16 10:16 Dose: 81 mg Atorvastatin Calcium (Lipitor) 40 mg PO DIN [facility] Carvedilol (Coreg) 3.125 mg PO BID [facility] Last Admin: 11/09/16 10:16 Dose: 3.125 mg Ferrous Sulfate (Feosol) 324 mg PO TID [facility] Furosemide (Lasix) 40 mg IVP Q12 [facility] Last Admin: 11/09/16 10:14 Dose: 40 mg Heparin Sodium (Porcine) (Heparin) 5,000 units SC Q12 [facility] PRN Reason: Protocol Last Admin: 11/09/16 10:15 Dose: 5,000 units Milrinone Lactate/Dextrose (Primacor 20mg/100ml D5w) 100 mls @ 15.156 mls/hr IV .Q6H36M PRN; Protocol; 0.375 MCG/KG/MIN PRN Reason: TITRATE PER MD ORDER Last Admin: 11/09/16 13:38 Dose: 0.375 mcg/kg/min, 15.156 mls/hr Insulin Human Regular (Humulin R Low) 0 units SC ACHS [facility] PRN Reason: Protocol Last Admin: 11/09/16 12:22 Dose: 1 units Isosorbide Dinitrate (Isordil) 10 mg PO BID [facility] Last Admin: 11/09/16 10:17 Dose: 10 mg Morphine Sulfate (Morphine) 2 mg IVP Q4H PRN PRN Reason: Pain, severe (8-10) Pantoprazole Sodium (Protonix Inj) 40 mg IVP DAILY [facility] Last Admin: 11/09/16 10:12 Dose: 40 mg Spironolactone (Aldactone) 25 mg PO BID [facility] Last Admin: 11/09/16 10:16 Dose: 25 mg Results - Vital Signs Recent Vital Signs: Last Vital Signs Temp 97.8 F 11/09/16 12:00 Pulse 69 11/09/16 13:38 Resp 20 11/09/16 12:00 BP 149/90 11/09/16 13:38 Pulse Ox 100 11/09/16 06:00 - Labs Result Diagrams: 11/09/16 07:10 11/09/16 07:10 Labs: Laboratory Results - last 24 hr 11/08/16 11/08/16 11/08/16 15:47 16:00 16:00 WBC RBC Hgb Hct MCV MCH MCHC RDW Plt Count MPV Gran % Lymph % (Auto) [place] % (Auto) Eos % (Auto) Baso % (Auto) Gran # Lymph # [place] # Eos # Baso # Neutrophils % (Manual) Lymphocytes % (Manual) Monocytes % (Manual) Eosinophils % (Manual) Platelet Evaluation Hypochromasia Poikilocytosis (manual Anisocytosis (manual) Tear Drop Cells Ovalocytes Helmet Cells PT INR Sodium Potassium Chloride Carbon Dioxide Anion Gap BUN Creatinine Est GFR ( Amer) Est GFR (Non-Af Amer) POC Glucose (mg/dL) 223 H Random Glucose Hemoglobin A1c 7.2 H Calcium Phosphorus Magnesium Iron TIBC % Saturation Transferrin Ferritin 119.0 Total Bilirubin AST ALT Alkaline Phosphatase Troponin I Total Protein Albumin Globulin Albumin/Globulin Ratio Triglycerides 79 Cholesterol 112 L LDL Cholesterol Direct 54 HDL Cholesterol 24 L Vitamin B12 868 TSH 3rd Generation Urine Color Urine Appearance Urine pH Ur Specific [place]onson Urine Protein Urine Glucose (UA) Urine Ketones Urine Blood Urine Nitrate Urine Bilirubin Urine Urobilinogen Ur Leukocyte Esterase Ur Random Creatinine Ur Random Sodium Ur Random Urea Nitrogn 11/08/16 11/08/16 11/08/16 16:00 16:00 19:05 WBC RBC Hgb Hct MCV MCH MCHC RDW Plt Count MPV Gran % Lymph % (Auto) [place] % (Auto) Eos % (Auto) Baso % (Auto) Gran # Lymph # [place] # Eos # Baso # Neutrophils % (Manual) Lymphocytes % (Manual) Monocytes % (Manual) Eosinophils % (Manual) Platelet Evaluation Hypochromasia Poikilocytosis (manual Anisocytosis (manual) Tear Drop Cells Ovalocytes Helmet Cells PT INR Sodium Potassium Chloride Carbon Dioxide Anion Gap BUN Creatinine Est GFR ( Amer) Est GFR (Non-Af Amer) POC Glucose (mg/dL) Random Glucose Hemoglobin A1c Calcium Phosphorus Magnesium Iron 26 L TIBC 265 % Saturation 10 L Transferrin Ferritin Total Bilirubin AST ALT Alkaline Phosphatase Troponin I 0.07 D Total Protein Albumin Globulin Albumin/Globulin Ratio Triglycerides Cholesterol LDL Cholesterol Direct HDL Cholesterol Vitamin B12 TSH 3rd Generation 3.93 Urine Color Urine Appearance Urine pH Ur Specific [place]onson Urine Protein Urine Glucose (UA) Urine Ketones Urine Blood Urine Nitrate Urine Bilirubin Urine Urobilinogen Ur Leukocyte Esterase Ur Random Creatinine Ur Random Sodium Ur Random Urea Nitrogn 11/08/16 11/08/16 11/08/16 20:58 20:58 21:59 WBC RBC Hgb Hct MCV MCH MCHC RDW Plt Count MPV Gran % Lymph % (Auto) [place] % (Auto) Eos % (Auto) Baso % (Auto) Gran # Lymph # [place] # Eos # Baso # Neutrophils % (Manual) Lymphocytes % (Manual) Monocytes % (Manual) Eosinophils % (Manual) Platelet Evaluation Hypochromasia Poikilocytosis (manual Anisocytosis (manual) Tear Drop Cells Ovalocytes Helmet Cells PT INR Sodium Potassium Chloride Carbon Dioxide Anion Gap BUN Creatinine Est GFR ( Amer) Est GFR (Non-Af Amer) POC Glucose (mg/dL) 165 H Random Glucose Hemoglobin A1c Calcium Phosphorus Magnesium Iron TIBC % Saturation Transferrin Ferritin Total Bilirubin AST ALT Alkaline Phosphatase Troponin I Total Protein Albumin Globulin Albumin/Globulin Ratio Triglycerides Cholesterol LDL Cholesterol Direct HDL Cholesterol Vitamin B12 TSH 3rd Generation Urine Color Yellow Urine Appearance Clear Urine pH 5.0 Ur Specific [place] 1.015 Urine Protein Negative Urine Glucose (UA) Negative Urine Ketones Negative Urine Blood Negative Urine Nitrate Negative Urine Bilirubin Negative Urine Urobilinogen 0.2 Ur Leukocyte Esterase Negative Ur Random Creatinine 73 Ur Random Sodium 65 Ur Random Urea Nitrogn 655 11/09/16 11/09/16 11/09/16 01:08 07:10 07:10 WBC 13.7 H D RBC 3.51 Hgb 9.7 L Hct 32.3 L MCV 92.0 MCH 27.6 MCHC 30.0 L RDW 19.7 H Plt Count 177 MPV 11.3 H Gran % 88.8 H Lymph % (Auto) 3.4 L [place] % (Auto) 4.4 Eos % (Auto) 3.3 Baso % (Auto) 0.1 Gran # 12.20 H Lymph # 0.5 L [place] # 0.6 Eos # 0.5 Baso # 0.01 Neutrophils % (Manual) 86 H Lymphocytes % (Manual) 5 L Monocytes % (Manual) 5 Eosinophils % (Manual) 4 H Platelet Evaluation Normal Hypochromasia Slight Poikilocytosis (manual 1+ Anisocytosis (manual) 2+ Tear Drop Cells Slight Ovalocytes Slight Helmet Cells Slight PT INR Sodium 149 H Potassium 4.4 Chloride 116 H Carbon Dioxide 22 Anion Gap 15 BUN 95 H Creatinine 2.9 H Est GFR ( Amer) 27 Est GFR (Non-Af Amer) 22 POC Glucose (mg/dL) Random Glucose 102 Hemoglobin A1c Calcium 8.6 Phosphorus 3.5 Magnesium 2.5 H Iron TIBC % Saturation Transferrin Ferritin Total Bilirubin 1.6 H AST 37 ALT 30 Alkaline Phosphatase 180 H Troponin I 0.08 Total Protein 7.3 Albumin 3.0 Globulin 4.3 Albumin/Globulin Ratio 0.7 L Triglycerides Cholesterol LDL Cholesterol Direct HDL Cholesterol Vitamin B12 TSH 3rd Generation Urine Color Urine Appearance Urine pH Ur Specific [place] Urine Protein Urine Glucose (UA) Urine Ketones Urine Blood Urine Nitrate Urine Bilirubin Urine Urobilinogen Ur Leukocyte Esterase Ur Random Creatinine Ur Random Sodium Ur Random Urea Nitrogn 11/09/16 11/09/16 11/09/16 07:10 07:20 07:20 WBC RBC Hgb Hct MCV MCH MCHC RDW Plt Count MPV Gran % Lymph % (Auto) [place] % (Auto) Eos % (Auto) Baso % (Auto) Gran # Lymph # [place] # Eos # Baso # Neutrophils % (Manual) Lymphocytes % (Manual) Monocytes % (Manual) Eosinophils % (Manual) Platelet Evaluation Hypochromasia Poikilocytosis (manual Anisocytosis (manual) Tear Drop Cells Ovalocytes Helmet Cells PT 15.4 H INR 1.43 H Sodium Potassium Chloride Carbon Dioxide Anion Gap BUN Creatinine Est GFR ( Amer) Est GFR (Non-Af Amer) POC Glucose (mg/dL) 121 H Random Glucose Hemoglobin A1c Calcium Phosphorus Magnesium Iron TIBC % Saturation Transferrin 194.36 L Ferritin Total Bilirubin AST ALT Alkaline Phosphatase Troponin I Total Protein Albumin Globulin Albumin/Globulin Ratio Triglycerides Cholesterol LDL Cholesterol Direct HDL Cholesterol Vitamin B12 TSH 3rd Generation Urine Color Urine Appearance Urine pH Ur Specific [place] Urine Protein Urine Glucose (UA) Urine Ketones Urine Blood Urine Nitrate Urine Bilirubin Urine Urobilinogen Ur Leukocyte Esterase Ur Random Creatinine Ur Random Sodium Ur Random Urea Nitrogn 11/09/16 11/09/16 07:34 11:53 WBC RBC Hgb Hct MCV MCH MCHC RDW Plt Count MPV Gran % Lymph % (Auto) [place] % (Auto) Eos % (Auto) Baso % (Auto) Gran # Lymph # [place] # Eos # Baso # Neutrophils % (Manual) Lymphocytes % (Manual) Monocytes % (Manual) Eosinophils % (Manual) Platelet Evaluation Hypochromasia Poikilocytosis (manual Anisocytosis (manual) Tear Drop Cells Ovalocytes Helmet Cells PT INR Sodium Potassium Chloride Carbon Dioxide Anion Gap BUN Creatinine Est GFR ( Amer) Est GFR (Non-Af Amer) POC Glucose (mg/dL) 174 H Random Glucose Hemoglobin A1c Calcium Phosphorus Magnesium Iron TIBC % Saturation Transferrin Ferritin 101.0 Total Bilirubin AST ALT Alkaline Phosphatase Troponin I Total Protein Albumin Globulin Albumin/Globulin Ratio Triglycerides Cholesterol LDL Cholesterol Direct HDL Cholesterol Vitamin B12 > 1000 H TSH 3rd Generation Urine Color Urine Appearance Urine pH Ur Specific [place] Urine Protein Urine Glucose (UA) Urine Ketones Urine Blood Urine Nitrate Urine Bilirubin Urine Urobilinogen Ur Leukocyte Esterase Ur Random Creatinine Ur Random Sodium Ur Random Urea Nitrogn
--- NOTE | 2016-11-09 14:53 | CARD ---
APPROVED REPORT EXAM: Two-dimensional and M-mode echocardiogram with Doppler and color Doppler. INDICATION Congestive Heart Failure 2D DIMENSIONS Left Atrium (2D)5.1 (1.6-4.0cm)IVSd1.3 (0.7-1.1cm) LVDd5.8 (3.9-5.9cm)PWd1.3 (0.7-1.1cm) LVDs5.2 (2.5-4.0cm)FS (%) 10.4 % LVEF (%)22.4 (>50%) M-Mode DIMENSIONS Aortic Root2.80 (2.2-3.7cm)Aortic Cusp Exc.1.40 (1.5-2.0cm) Aortic Valve AoV Peak Cuzqwzwe655.0cm/[place] Peak GR.11mmHg Mitral Valve MV E Mflrpovf001.0cm/sMV A Cwveswca28.5cm/sE/A ratio1.8 TDI E/Lateral E'0.0E/Medial E'0.0 Tricuspid Valve TR Peak [id number]/sRAP [id number] Peak Gr.40mmHg [id number] LEFT VENTRICLE The Left Ventricle is borderline dilated. There is mild concentric left ventricular hypertrophy. The systolic function is severely impaired. There is global hypokinesis of the left ventricle. No left ventricle thrombus noted on this study. RIGHT VENTRICLE The right ventricle is moderately dilated. There is normal right ventricular wall thickness. Systolic function is severely reduced. ATRIA The left atrium is moderately dilated. The right atrium is mildly dilated. AORTIC VALVE The aortic valve is moderately thickened. MITRAL VALVE Mitral regurgitation is mild to moderate. TRICUSPID VALVE There is mild tricuspid regurgitation. There is mild to moderate pulmonary hypertension. PULMONIC VALVE There is moderate pulmonic valvular regurgitation. GREAT VESSELS The IVC collapses <50% with inspiration. PERICARDIAL EFFUSION There is a trace circumferential pericardial effusion. <Conclusion> 4 chamber dilatation with sever hypokinesis of both ventricles No left ventricle thrombus noted on this study. Mitral regurgitation is mild to moderate. There is moderate pulmonic valvular regurgitation. There is mild tricuspid regurgitation. There is mild to moderate pulmonary hypertension.
[2016-11-09] MEDS: Morphine 2 mg/ml ISec IVP PRN (18:16)
--- NOTE | 2016-11-09 19:22 | US ---
EXAM: US Pelvis Ltd Bladder EXAM DATE/TIME: 11/09/2016 2:31 PM CLINICAL HISTORY: 65 years old, male; Signs and symptoms; Bladder; Urine retention; Additional info: Lg. Please check pvr TECHNIQUE: Real-time ultrasound of the pelvis ltd bladder with image documentation. COMPARISON: There are no prior studies for comparison. FINDINGS: Prevoid images: Bladder is distended. Estimated bihemispheric approximately 940.6 cc. There is mild bladder wall prominence. Ureteral jets were not visualized. Postvoid images: There is mild prominence of the bladder wall. Residual volume is estimated at 438 cc. IMPRESSION: 46.6% postvoid residual; mild bladder thickening
--- NOTE | 2016-11-09 20:06 | CON ---
DATE: 11/09/2016 HISTORY OF PRESENT ILLNESS: The patient is a 65-year-old male who presents with progressive pedal edema and shortness of breath. The patient is a recent resident of [place], who moved over from [facility]. PAST MEDICAL HISTORY: His past medical history includes REVIEW OF SYSTEMS: 14-point review of systems is reviewed in detail. His edema is a little better. His breathing is a little better. He does suffer from hypertension as well. PHYSICAL EXAMINATION VITAL SIGNS: Blood pressure is 145/90, heart rate in the 80s. NECK: Negative JVD. CARDIOPULMONARY: Heart reveal S1 and S2. EXTREMITIES: Chronic edematous changes on both lower extremities. LUNGS: Decreased breath sounds bilaterally. IMAGING DATA: EKG shows poor R-wave progression as well as possible old inferior wall DE. LABORATORY DATA: Hemoglobin is 9.7. Chemistries; BUN and creatinine is 95 and 2.9. The troponin is 0.08. IMPRESSION: 1. Acute systolic congestive heart failure. 2. Chronic and progressive pedal edema. 3. Diabetes mellitus. 4. Hypertension. 5. Hypercholesterolemia. 6. Renal insufficiency. 7. Prerenal azotemia. 8. Nonsustained ventricular tachycardia. PLAN: Given these findings, we will start the patient on IV Lasix. We will start inotropic therapy. Kamari Watt MD
[2016-11-10] MEDS: Milrinone 20mg/100ml D5W 100 ML IV PRN ×4 (01:03→21:59)
[2016-11-10 01:44] LABS: TOTAL PROTEIN, SERUM 7.3 g/dL (6.1-8.1)
[2016-11-10] MEDS: Pantoprazole 40 mg EC Tab PO SCH (05:22)
[2016-11-10 06:30] LABS: CREATININE, RANDOM URINE 74 mg/dL (20-370)
[2016-11-10 07:10] LABS: BASO # 0.01 K/mm3 (0.0-2.0); BASO % 0.1 % (0.0-3.0); EOS # 0.4 (0.0-0.7); EOS % 3.5 % (1.5-5.0); GRAN % 86.3 % (50.0-68.0); HEMATOCRIT 27.7 % (42.0-52.0); LYMPH # 0.5 (1.2-3.4); MEAN CELL VOLUME 90.8 fl (80.0-105.0); MEAN CORPUSCULAR HEMOGLOBIN 27.9 pg (25.0-35.0); MEAN CORPUSCULAR HGB CONC 30.7 g/dl (31.0-37.0); MONO # 0.7 (0.1-0.6); MONO % 6.1 % (1.0-6.0); RED CELL DISTRIBUTION WIDTH 19.4 % (11.5-14.5); WHITE BLOOD COUNT 11.6 10^3/ul (4.5-11.0)
[2016-11-10 07:28] LABS: ALB/GLOB RATIO 0.7 (1.1-1.8); ALKALINE PHOSPHATASE 162 U/L (38-133); ALT/SGPT 28 U/L (7-56); AST/SGOT 35 U/L (15-59); BILIRUBIN,TOTAL 1.2 mg/dL (0.2-1.3); BLOOD UREA NITROGEN 94 mg/dL (7-21); CALCIUM 8.3 mg/dL (8.4-10.5); CARBON DIOXIDE 23 mmol/L (21-33); CHLORIDE 115 mmol/L (98-107); GFR AFRICAN-AMERICAN 28; GLUCOSE,RANDOM 167 mg/dL (70-110); MAGNESIUM 2.3 mg/dL (1.7-2.2); PHOSPHOROUS 3.2 mg/dL (2.5-4.5); POTASSIUM 4.6 mmol/L (3.6-5.0); SODIUM 146 mmol/L (132-148); TOTAL PROTEIN 6.4 g/dL (5.8-8.3)
[2016-11-10] MEDS: Insulin Reg-LOW-Coverage SC SCH ×4 (08:21→21:51)
--- NOTE | 2016-11-10 10:30 | CP.PCM.PN ---
Subjective - Date & Time of Evaluation Date of Evaluation: 11/10/16 Time of Evaluation: 10:30 - Subjective Subjective: RENAL FOLLOW UP NOTE Objective - Vital Signs/Intake and Output Vital Signs (last 24 hours): Temp Pulse Resp BP Pulse Ox 98.7 F 87 20 131/77 98 11/10/16 06:00 11/10/16 09:09 11/10/16 06:00 11/10/16 09:11 11/10/16 06:00 Intake and Output: 11/10/16 11/10/16 06:59 18:59 Intake Total 502 100 Output Total 300 Balance 202 100 - Medications Medications: Current Medications Aspirin (Aspirin Chewable) 81 mg PO DAILY [facility] Last Admin: 11/10/16 09:09 Dose: 81 mg Atorvastatin Calcium (Lipitor) 40 mg PO DIN [facility] Last Admin: 11/09/16 18:13 Dose: 40 mg Carvedilol (Coreg) 3.125 mg PO BID [facility] Last Admin: 11/10/16 09:09 Dose: 3.125 mg Cholecalciferol (Vitamin D) 2,000 iu PO DAILY [facility] Last Admin: 11/10/16 10:23 Dose: 2,000 iu Ferrous Sulfate (Feosol) 324 mg PO TID [facility] Last Admin: 11/10/16 09:09 Dose: 324 mg Furosemide (Lasix) 40 mg IVP Q12 [facility] Last Admin: 11/10/16 09:11 Dose: 40 mg Heparin Sodium (Porcine) (Heparin) 5,000 units SC Q12 [facility] PRN Reason: Protocol Last Admin: 11/10/16 09:10 Dose: 5,000 units Hydralazine HCl (Apresoline) 25 mg PO QID [facility] Last Admin: 11/10/16 09:08 Dose: 25 mg Milrinone Lactate/Dextrose (Primacor 20mg/100ml D5w) 100 mls @ 15.156 mls/hr IV .Q6H36M PRN; Protocol; 0.375 MCG/KG/MIN PRN Reason: TITRATE PER MD ORDER Last Admin: 11/10/16 07:36 Dose: 0.375 mcg/kg/min, 15.156 mls/hr Piperacillin Sod/Tazobactam Sod (Zosyn 2.25 Gm In 0.9% 100 Ml) 2.25 gm in 100 mls @ 100 mls/hr IVPB Q8H [facility] PRN Reason: Protocol Stop: 11/10/16 18:29 Insulin Human Regular (Humulin R Low) 0 units SC ACHS [facility] PRN Reason: Protocol Last Admin: 11/10/16 08:21 Dose: 1 units Morphine Sulfate (Morphine) 2 mg IVP Q4H PRN PRN Reason: Pain, severe (8-10) Last Admin: 11/09/16 18:16 Dose: 2 mg Pantoprazole Sodium (Protonix Ec Tab) 40 mg PO 0600 [facility] Last Admin: 11/10/16 05:22 Dose: 40 mg Spironolactone (Aldactone) 25 mg PO BID [facility] Last Admin: 11/10/16 09:09 Dose: 25 mg - Labs Labs: 11/10/16 06:50 11/10/16 06:50 PT 15.4 Seconds (9.9-11.8) H 11/09/16 07:10 INR 1.43 (0.93-1.08) H 11/09/16 07:10 APTT 29.0 Seconds (23.7-30.8) 11/08/16 11:30
--- NOTE | 2016-11-10 10:43 | US ---
PROCEDURE: Ultrasound of the Kidneys HISTORY: elevated creatinine COMPARISON: None available. TECHNIQUE: Sonogram of the kidneys. FINDINGS: RIGHT KIDNEY: Measures: 11.5 x 4.6 x 5.2 cm. Normal in size, contour and echogenicity. No stone, solid mass lesion or hydronephrosis visualized. LEFT KIDNEY: Measures: 10.6 x 5.4 x 5.9 cm. . Normal in size, contour and echogenicity. No stone, solid mass lesion or hydronephrosis visualized. OTHER FINDINGS: Moderate ascites. Equivocal fine lobulation to the liver margin. Liver echogenicity borderline increased IMPRESSION: No hydronephrosis or renal mass. Moderate ascites. Correlate clinically regarding any potential chronic hepatic parenchymal disease. Preliminary report provided by [employer]
[2016-11-10] MEDS: Piperacillin/Tazobact 2.25gm 2.25 GM/100 ML BAG IVPB SCH ×2 (10:44→19:37)
[2016-11-10] MEDS: Morphine 2 mg/ml ISec IVP PRN ×3 (11:02→20:09)
--- NOTE | 2016-11-10 11:10 | PN ---
DATE: 11/10/2016 CARDIOLOGY FOLLOWUP SUBJECTIVE: The patient's breathing is much improved. The edema in his right lower extremity is markedly improved. OBJECTIVE: VITAL SIGNS: Blood pressure is 130/60, heart rate in the 70s. NECK: Negative JVD. LUNGS: Without rales. HEART: S1, S2. EXTREMITIES: Without edema. LABORATORY DATA: BUN and creatinine is essentially unchanged. The hemoglobin is 8.5. IMPRESSION 1. Acute systolic congestive heart failure which is improved on inotropic therapy. 2. Severe dilated cardiomyopathy with an ejection fraction of 22%. 3. Marked and chronic pedal edema. 4. Renal insufficiency. 5. Diabetes mellitus. 6. Hypertension. 7. History of nonsustained ventricular tachycardia. PLAN: Given these findings, we will continue the IV Lasix. In addition, we will continue the IV inotropic therapy for another 24 hours. Kamari Watt MD
--- NOTE | 2016-11-10 12:25 | CP.PCM.PN ---
<Archana Rosales - Last Filed: 11/10/16 12:19> Subjective - Date & Time of Evaluation Date of Evaluation: 11/10/16 Time of Evaluation: 12:19 - Subjective Subjective: A 65 yo male patient was seen at chair side this morning with Dr. Amos concerning open ulcerations to Right bimalleolar aspect as well as Left dorsal aspect of 1st ray. Dressing to bilateral lower extremity appears cdi. He denies of any pain to bilateral extremity. Patient denies of any N/V/F/C or SOB today Objective - Vital Signs/Intake and Output Vital Signs (last 24 hours): Temp Pulse Resp BP Pulse Ox 98.7 F 87 20 131/77 98 11/10/16 06:00 11/10/16 09:09 11/10/16 06:00 11/10/16 09:11 11/10/16 06:00 Intake and Output: 11/10/16 11/10/16 06:59 18:59 Intake Total 502 100 Output Total 300 Balance 202 100 - Medications Medications: Current Medications Aspirin (Aspirin Chewable) 81 mg PO DAILY [facility] Last Admin: 11/10/16 09:09 Dose: 81 mg Atorvastatin Calcium (Lipitor) 40 mg PO DIN [facility] Last Admin: 11/09/16 18:13 Dose: 40 mg Carvedilol (Coreg) 3.125 mg PO BID [facility] Last Admin: 11/10/16 09:09 Dose: 3.125 mg Cholecalciferol (Vitamin D) 2,000 iu PO DAILY [facility] Last Admin: 11/10/16 10:23 Dose: 2,000 iu Ferrous Sulfate (Feosol) 324 mg PO TID [facility] Last Admin: 11/10/16 09:09 Dose: 324 mg Furosemide (Lasix) 40 mg IVP Q12 [facility] Last Admin: 11/10/16 09:11 Dose: 40 mg Heparin Sodium (Porcine) (Heparin) 5,000 units SC Q12 [facility] PRN Reason: Protocol Last Admin: 11/10/16 09:10 Dose: 5,000 units Hydralazine HCl (Apresoline) 25 mg PO QID [facility] Last Admin: 11/10/16 09:08 Dose: 25 mg Milrinone Lactate/Dextrose (Primacor 20mg/100ml D5w) 100 mls @ 15.156 mls/hr IV .Q6H36M PRN; Protocol; 0.375 MCG/KG/MIN PRN Reason: TITRATE PER MD ORDER Last Admin: 11/10/16 07:36 Dose: 0.375 mcg/kg/min, 15.156 mls/hr Piperacillin Sod/Tazobactam Sod (Zosyn 2.25 Gm In 0.9% 100 Ml) 2.25 gm in 100 mls @ 100 mls/hr IVPB Q8H [facility] PRN Reason: Protocol Stop: 11/10/16 18:29 Last Admin: 11/10/16 10:44 Dose: 100 mls/hr Insulin Human Regular (Humulin R Low) 0 units SC ACHS [facility] PRN Reason: Protocol Last Admin: 11/10/16 08:21 Dose: 1 units Morphine Sulfate (Morphine) 2 mg IVP Q4H PRN PRN Reason: Pain, severe (8-10) Last Admin: 11/10/16 11:02 Dose: 2 mg Pantoprazole Sodium (Protonix Ec Tab) 40 mg PO 0600 [facility] Last Admin: 11/10/16 05:22 Dose: 40 mg Spironolactone (Aldactone) 25 mg PO BID [facility] Last Admin: 11/10/16 09:09 Dose: 25 mg - Labs Labs: 11/10/16 06:50 11/10/16 06:50 PT 15.4 Seconds (9.9-11.8) H 11/09/16 07:10 INR 1.43 (0.93-1.08) H 11/09/16 07:10 APTT 29.0 Seconds (23.7-30.8) 11/08/16 11:30 - Constitutional Appears: Well, Non-toxic, No Acute Distress - Head Exam Head Exam: ATRAUMATIC - Extremities Exam Additional comments: bilateral lower extremities exam DERM: Right - Open ulceration noted to either sides of malleolus each measuring 1cm x 1cmx 0.2cm with 100% fibrotic bases. Mild serous drainage is noted from both wounds. No purulent discharge is noted. No sign of acute infections is noted. No PTB Left - Open ulceration to dorsal aspect of Left 1st metatarsal measuring 7cm x 2cm x 0.2cm with 100% fibrotic base. No drainage is noted. No purulent discharge noted. No mal-odor is noted. No erythema around the wound is noted. No maceration noted to the wound edges. No sign of acute infections is noted. No PTB VASC: Non-palpable DP and PT noted bilaterally. [employer]EC[employer]IVE [employer]UITER less than 3 seconds to all digits noted. ORTHO: Mild pain induced on palpation to ulcerations. Decreased ROM to joints distal to ankle NEURO: Gross sensation diminished to distal aspect of bilateral feet, tested with monofilament 9 points plantar feet - Neurological Exam Neurological Exam: Alert, Awake, Oriented x3 - Psychiatric Exam Psychiatric exam: Normal Affect, Normal Mood - Skin Skin Exam: Normal Color, Warm Assessment and Plan - Assessment and Plan (Free Text) Assessment: 65yo male with extensive history including CHF, CKD, YASMIN, HTN, DM2 presents with open ulcerations to bilateral lower extremities Perez Stage II Plan: Patient was seen, evaluated at bedside with attending Dr. Amos Labs and vitals reviewed Right - Right lower extremity cleansed with Sterile normal saline. Maxorb and DSD applied to ulcerations bilateral malleolus Left - Left foot cleansed with Sterile normal saline and dressed with Xeroform and DSD Wound culture : Gram (-) David Preliminary Bilateral feet Xray pending Arterial doppler pending Podiatry will follow in-house <Kurtis Amos - Last Filed: 11/13/16 12:04> Objective - Vital Signs/Intake and Output Vital Signs (last 24 hours): Temp Pulse Resp BP Pulse Ox 98.3 F 87 20 144/71 98 11/13/16 06:00 11/13/16 06:00 11/13/16 06:00 11/13/16 06:00 11/13/16 06:00 Intake and Output: 11/13/16 11/13/16 06:59 18:59 Intake Total 600 Output Total 600 Balance 0 - Medications Medications: Current Medications Ascorbic Acid (Vitamin C 500 Mg Tab) 500 mg PO DAILY [facility] Last Admin: 11/12/16 09:47 Dose: 500 mg Aspirin (Aspirin Chewable) 81 mg PO DAILY [facility] Last Admin: 11/12/16 09:46 Dose: 81 mg Atorvastatin Calcium (Lipitor) 40 mg PO DIN [facility] Last Admin: 11/12/16 17:01 Dose: 40 mg Carvedilol (Coreg) 3.125 mg PO BID [facility] Last Admin: 11/12/16 17:01 Dose: 3.125 mg Collagenase (Santyl) 0 gm TOP DAILY [facility] Last Admin: 11/12/16 09:49 Dose: Not Given Ergocalciferol (Drisdol 50,000 Intl Units Cap) 1 cap PO Q7D [facility] Last Admin: 11/12/16 12:08 Dose: 1 cap Ferrous Sulfate (Feosol) 324 mg PO TID [facility] Last Admin: 11/12/16 17:45 Dose: 324 mg Furosemide (Lasix) 40 mg IVP DAILY [facility] Heparin Sodium (Porcine) (Heparin) 5,000 units SC Q12 [facility] PRN Reason: Protocol Last Admin: 11/12/16 22:13 Dose: 5,000 units Hydralazine HCl (Apresoline) 25 mg PO QID [facility] Last Admin: 11/12/16 22:13 Dose: 25 mg Ceftriaxone Sodium (Rocephin 1 Gram Ivpb) 1 gm in 100 mls @ 100 mls/hr IVPB DAILY [facility] PRN Reason: Protocol Last Admin: 11/12/16 09:49 Dose: 100 mls/hr Insulin Human Regular (Humulin R Low) 0 units SC ACHS [facility] PRN Reason: Protocol Last Admin: 11/13/16 08:44 Dose: Not Given Multi-Ingredient Cream (Hydrocerin Cream) 0 ea TOP DAILY [facility] Last Admin: 11/12/16 11:59 Dose: Not Given Pantoprazole Sodium (Protonix Ec Tab) 40 mg PO 0600 [facility] Last Admin: 11/13/16 05:56 Dose: 40 mg Spironolactone (Aldactone) 25 mg PO BID [facility] Last Admin: 11/12/16 17:02 Dose: 25 mg Tamsulosin HCl (Flomax) 0.4 mg PO DAILY [facility] Last Admin: 11/12/16 12:08 Dose: 0.4 mg Zinc Sulfate (Zinc Sulfate 220 Mg Cap) 220 mg PO DAILY [facility] Last Admin: 11/12/16 09:46 Dose: 220 mg - Labs Labs: 11/13/16 05:33 11/13/16 05:33 PT 15.4 Seconds (9.9-11.8) H 11/09/16 07:10 INR 1.43 (0.93-1.08) H 11/09/16 07:10 APTT 29.0 Seconds (23.7-30.8) 11/08/16 11:30 Attending/Attestation - Attestation I have personally seen and examined this patient.: Yes I have fully participated in the care of the patient.: Yes I have reviewed all pertinent clinical information, including history, physical exam and plan: Yes
[2016-11-10] MEDS ORDERED: Albumin Human 25% (12.5 gm/50 ml) IV ONE (14:13)
[2016-11-10 15:58] LABS: HEMATOCRIT 28.1 % (42.0-52.0)
--- NOTE | 2016-11-10 16:36 | RAD ---
PROCEDURE: Left Foot Radiographs. HISTORY: r/o osteomyelitis COMPARISON: None. FINDINGS: BONES: Chronic Charcot foot deformities are seen. 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 There is bony demineralization but no evidence of bony destruction to suggest osteomyelitis. JOINTS: Normal. SOFT TISSUES: Normal. OTHER FINDINGS: None. IMPRESSION: Chronic Charcot foot deformities are seen. 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 There is bony demineralization but no evidence of bony destruction to suggest osteomyelitis.
[2016-11-10] MEDS: Prostat 15 g packet GT SCH (20:04)
--- NOTE | 2016-11-10 20:42 | US ---
PROCEDURE: Lower extremity MATTHEW exam HISTORY: Peripheral vascular disease with pain and ulceration. Diabetes. PHYSICIAN(S): Kamari Mohan MD. FINDINGS: The right resting MATTHEW is normal, 0.91. The left resting MATTHEW is mildly abnormal, 0.73 The brachial systolic pressures are symmetric. There is a 35 mm difference between low thigh pressures, lower on the left. In addition, the left low thigh PVR waveform is decreased in amplitude compared to the right. This could represent left iliac or common femoral artery occlusive disease The calf PVR waveforms augment normally. The right ankle and metatarsal waveforms are normal. The left ankle and metatarsal waveforms are mildly blunted. IMPRESSION: 1. Mildly abnormal left MATTHEW at rest 2. Possible left iliac and/ or common femoral artery occlusive disease. If clinically indicated, further evaluation can be obtained with CTA runoff, MRA runoff, or conventional arteriography.
--- NOTE | 2016-11-10 22:45 | CP.PCM.PN ---
<MameCarlos - Last Filed: 11/10/16 22:38> Subjective - Date & Time of Evaluation Date of Evaluation: 11/10/16 Time of Evaluation: 07:55 - Subjective Subjective: Pt s/e bedside. Patient's sob has gotten much better. Pt still having significant back pain. No o/p pain regimen at this time. Will keep on current pain management in patient. Pt denies cp, n/v/d, f/ch. Patient further denies fatigue and generalized weakness. No further complaints at this time. Objective - Vital Signs/Intake and Output Vital Signs (last 24 hours): Temp Pulse Resp BP Pulse Ox 97.6 F 83 19 129/67 98 11/10/16 17:23 11/10/16 22:00 11/10/16 17:23 11/10/16 21:59 11/10/16 06:00 Intake and Output: 11/10/16 11/11/16 18:59 06:59 Intake Total 200 100 Balance 200 100 - Medications Medications: Current Medications Aspirin (Aspirin Chewable) 81 mg PO DAILY [facility] Last Admin: 11/10/16 09:09 Dose: 81 mg Atorvastatin Calcium (Lipitor) 40 mg PO DIN [facility] Last Admin: 11/10/16 18:18 Dose: 40 mg Carvedilol (Coreg) 3.125 mg PO BID [facility] Last Admin: 11/10/16 18:19 Dose: 3.125 mg Cholecalciferol (Vitamin D) 2,000 iu PO DAILY [facility] Last Admin: 11/10/16 10:23 Dose: 2,000 iu Ferrous Sulfate (Feosol) 324 mg PO TID [facility] Last Admin: 11/10/16 18:18 Dose: 324 mg Furosemide (Lasix) 40 mg IVP Q12 [facility] Last Admin: 11/10/16 21:51 Dose: 40 mg Heparin Sodium (Porcine) (Heparin) 5,000 units SC Q12 [facility] PRN Reason: Protocol Last Admin: 11/10/16 21:49 Dose: 5,000 units Hydralazine HCl (Apresoline) 25 mg PO QID [facility] Last Admin: 11/10/16 21:49 Dose: 25 mg Milrinone Lactate/Dextrose (Primacor 20mg/100ml D5w) 100 mls @ 15.156 mls/hr IV .Q6H36M PRN; Protocol; 0.375 MCG/KG/MIN PRN Reason: TITRATE PER MD ORDER Last Admin: 11/10/16 21:59 Dose: 0.375 mcg/kg/min, 15.156 mls/hr Piperacillin Sod/Tazobactam Sod (Zosyn 2.25 Gm In 0.9% 100 Ml) 2.25 gm in 100 mls @ 100 mls/hr IVPB Q8H [facility] PRN Reason: Protocol Stop: 11/17/16 09:31 Last Admin: 11/10/16 19:37 Dose: 100 mls/hr Insulin Human Regular (Humulin R Low) 0 units SC ACHS [facility] PRN Reason: Protocol Last Admin: 11/10/16 21:51 Dose: Not Given Morphine Sulfate (Morphine) 2 mg IVP Q4H PRN PRN Reason: Pain, severe (8-10) Last Admin: 11/10/16 20:09 Dose: 2 mg Pantoprazole Sodium (Protonix Ec Tab) 40 mg PO 0600 [facility] Last Admin: 11/10/16 05:22 Dose: 40 mg Spironolactone (Aldactone) 25 mg PO BID [facility] Last Admin: 11/10/16 18:19 Dose: 25 mg - Labs Labs: 11/10/16 15:54 11/10/16 06:50 PT 15.4 Seconds (9.9-11.8) H 11/09/16 07:10 INR 1.43 (0.93-1.08) H 11/09/16 07:10 APTT 29.0 Seconds (23.7-30.8) 11/08/16 11:30 - Additional Findings Additional findings: Phys Exam: VS as below Constitutional: a&o x 4, nad Head and Neck: neck supple, no jvd, trachea midline, carotid midline, no cervical/head mass Eyes: nai, nonicteric sclera, eom intact ENT: auditory acuity grossly intact, throat not congested, no nasal deformity Cardio: rrr, no m/r/g, no carotid bruit, nml s1, s2 Pulm: no accessory muscle use, equal nml breath sounds bilaterally, ctab MSK: +Mild TTP in the lumbar area on the left Abd: s/nt/nd, nbs x 4 q, no palpable masses Derm: no rashes, no ulcers, no lesions Extr: 2-3+ pitting edema; malodorous feet; onychomycosis. Bandages just changed by Podiatry Neuro: cn II-XII grossly intact, ue and le 5/5 muscle strength bilaterally, no los ue, le bilaterally and core Assessment and Plan - Assessment and Plan (Free Text) Assessment: 65yo male with extensive history including CHF, CKD, YASMIN, HTN, DM2 presents c/o low back pain and dyspnea Plan: 1. CHF -Patient admitted to telemetry for monitoring -EKG reviewed; revealed sinus rhythm at 69bpm, low voltage qrs, possible anterolateral infarct (age undetermined) -CXR reviewed; cardiomegaly -Troponin 0.09 indeterminate, will trend [place] [id number] -Patient started on lasix 40mg IVP q12h, aldactone 25mg PO BID, coreg 3.125mg PO BID pending pharmacy medications reconciliation -Echocardiogram LVEF - 22.4% -Strict I's and O's -Daily Weight -HOB > 45' -Cardiology consulted - Dr. Watt Hold Bumex Milrinone Aldactone Lasix 2. Low back pain -Lumbar spine x-ray: no acute disease -Pain control 3. CKD -Unknown staging/baseline; Creatinine on admission 3.3, will trend -Urine studies pending: random urine sodium, creatinine, urea -Will avoid nephrotoxic agents and renally dose medications -Nephrology consulted - Dr. Carreon No acute need for renal replacement therapy at this time. discussed with patient that due to his advanced renal insuff, CHF and fluid overload, dialysis could be anticipated in near future such as months. Pt advised to abstain from NSAIDs completely. Hypertension control with meds as ordered. Patient on RAAS lei with aldactone Agree with iron supplements Continue with diuretics. Monitor Input/Output, daily weights and renal function with basic metabolic panel Check urine analysis, spot protein/creatinine and albumin/creatinine ratio, renal/bladder sonogram. Check for 25-OH vitamin D, iPTH level Check serum protein electrophoresis with immunofixation, kappa/lambda ratio also check HIV/Hep B and Hep C serology Dose meds/antibiotics for reduced GFR. Avoid fleets enema/magnesium based laxatives. Avoid nephrotoxins/NSAIDs/ iodinated contrast (unless needed emergently) Glycemic control 4. Left toe abscess, Right foot infection - ID C/s - Podiatry C/s: Right - Right lower extremity cleansed with Sterile normal saline. Maxorb and DSD applied to ulcerations bilateral malleolus Left - Left foot cleansed with Sterile normal saline and dressed with Xeroform and DSD Wound culture : Gram (-) David Preliminary Bilateral feet Xray pending Arterial doppler pending 5. DM type 2 -Consistent carb/heart healthy diet -Fingersticks ACHS -Humulin low dose ISS -Oral agents held 6. Anemia -Anemia workup pending including: Iron, Ferritin, TIBC, B12, Folate, Reticulocyte count -No overt signs of bleeding, will continue to follow H/H 7. Hypertension -Antihypertensives pending confirmation with patient's pharmacy; in the meantime , continue lasix and aldactone 8. YASMIN -CPAP at night; titrate to maintain O2sat > 90% 9. GI/DVT Prophylaxis -Protonix/Heparin SC Records obtained from [facility] - Dr. Glover seen there for pain. No active pain management, patient needs to get a CT and MRI outpatient. Patient seen and case discussed with attending, Dr. Faith <Ori Faith - Last Filed: 12/16/16 08:42> Objective - Vital Signs/Intake and Output Vital Signs (last 24 hours): Temp Pulse Resp BP Pulse Ox 98.4 F 73 20 117/67 100 11/20/16 08:25 11/20/16 13:21 11/20/16 08:25 11/20/16 13:21 11/20/16 08:25 - Labs Labs: 11/20/16 06:50 11/20/16 06:50 PT 14.7 Seconds (9.9-11.8) H 11/18/16 09:50 INR 1.36 (0.93-1.08) H 11/18/16 09:50 APTT 31.6 Seconds (23.7-30.8) H 11/18/16 09:50 Attending/Attestation - Attestation I have personally seen and examined this patient.: Yes I have fully participated in the care of the patient.: Yes I have reviewed all pertinent clinical information, including history, physical exam and plan: Yes Notes (Text): 12/16/16 08:40 Medical record note made by the resident after discussion with my ddirection after patient seen and examined by me. The chart accurately reflects my history , physical, data review and plan.
[2016-11-11] MEDS: Piperacillin/Tazobact 2.25gm 2.25 GM/100 ML BAG IVPB SCH ×2 (00:40→11:01)
[2016-11-11] MEDS: Milrinone 20mg/100ml D5W 100 ML IV PRN ×4 (03:59→20:21)
[2016-11-11] MEDS: Pantoprazole 40 mg EC Tab PO SCH (05:21)
[2016-11-11 06:51] LABS: BASO # 0.02 K/mm3 (0.0-2.0); BASO % 0.2 % (0.0-3.0); EOS # 0.3 (0.0-0.7); EOS % 3.2 % (1.5-5.0); GRAN # 8.99 (1.4-6.5); GRAN % 85.3 % (50.0-68.0); HEMATOCRIT 26.5 % (42.0-52.0); LYMPH # 0.3 (1.2-3.4); LYMPH % 2.7 % (22.0-35.0); MEAN CELL VOLUME 90.4 fl (80.0-105.0); MEAN CORPUSCULAR HGB CONC 30.9 g/dl (31.0-37.0); MEAN PLATELET VOLUME 10.8 fl (7.0-11.0); MONO # 0.9 (0.1-0.6); MONO % 8.6 % (1.0-6.0); RED CELL DISTRIBUTION WIDTH 19.2 % (11.5-14.5); WHITE BLOOD COUNT 10.5 10^3/ul (4.5-11.0)
[2016-11-11 07:12] LABS: ALB/GLOB RATIO 0.7 (1.1-1.8); BILIRUBIN,TOTAL 1.4 mg/dL (0.2-1.3); CALCIUM 8.3 mg/dL (8.4-10.5); MAGNESIUM 2.2 mg/dL (1.7-2.2); PHOSPHOROUS 3.1 mg/dL (2.5-4.5); POTASSIUM 4.5 mmol/L (3.6-5.0); TOTAL PROTEIN 7.2 g/dL (5.8-8.3)
[2016-11-11] MEDS: Insulin Reg-LOW-Coverage SC SCH ×4 (08:34→21:13)
--- NOTE | 2016-11-11 08:57 | CP.PCM.PN ---
Subjective - Date & Time of Evaluation Date of Evaluation: 11/11/16 Time of Evaluation: 08:53 - Subjective Subjective: seen and examined feels ok no n/v Objective - Vital Signs/Intake and Output Vital Signs (last 24 hours): Temp Pulse Resp BP Pulse Ox 97.7 F 89 20 146/87 100 11/11/16 05:58 11/11/16 05:58 11/11/16 05:58 11/11/16 05:58 11/11/16 05:58 Intake and Output: 11/11/16 11/11/16 06:59 18:59 Intake Total 915 Output Total 950 Balance -35 - Medications Medications: Current Medications Ascorbic Acid (Vitamin C 500 Mg Tab) 500 mg PO DAILY [facility] Aspirin (Aspirin Chewable) 81 mg PO DAILY [facility] Last Admin: 11/10/16 09:09 Dose: 81 mg Atorvastatin Calcium (Lipitor) 40 mg PO DIN [facility] Last Admin: 11/10/16 18:18 Dose: 40 mg Carvedilol (Coreg) 3.125 mg PO BID [facility] Last Admin: 11/10/16 18:19 Dose: 3.125 mg Cholecalciferol (Vitamin D) 2,000 iu PO DAILY [facility] Last Admin: 11/10/16 10:23 Dose: 2,000 iu Collagenase (Santyl) 0 gm TOP DAILY [facility] Ferrous Sulfate (Feosol) 324 mg PO TID [facility] Last Admin: 11/10/16 18:18 Dose: 324 mg Furosemide (Lasix) 40 mg IVP Q12 [facility] Last Admin: 11/10/16 21:51 Dose: 40 mg Heparin Sodium (Porcine) (Heparin) 5,000 units SC Q12 [facility] PRN Reason: Protocol Last Admin: 11/10/16 21:49 Dose: 5,000 units Hydralazine HCl (Apresoline) 25 mg PO QID [facility] Last Admin: 11/10/16 21:49 Dose: 25 mg Milrinone Lactate/Dextrose (Primacor 20mg/100ml D5w) 100 mls @ 15.156 mls/hr IV .Q6H36M PRN; Protocol; 0.375 MCG/KG/MIN PRN Reason: TITRATE PER MD ORDER Last Admin: 11/11/16 03:59 Dose: 0.375 mcg/kg/min, 15.156 mls/hr Piperacillin Sod/Tazobactam Sod (Zosyn 2.25 Gm In 0.9% 100 Ml) 2.25 gm in 100 mls @ 100 mls/hr IVPB Q8H [facility] PRN Reason: Protocol Stop: 11/17/16 09:31 Last Admin: 11/11/16 00:40 Dose: 100 mls/hr Insulin Human Regular (Humulin R Low) 0 units SC ACHS [facility] PRN Reason: Protocol Last Admin: 11/11/16 08:34 Dose: Not Given Morphine Sulfate (Morphine) 2 mg IVP Q4H PRN PRN Reason: Pain, severe (8-10) Last Admin: 11/10/16 20:09 Dose: 2 mg Multi-Ingredient Cream (Hydrocerin Cream) 0 ea TOP DAILY [facility] Pantoprazole Sodium (Protonix Ec Tab) 40 mg PO 0600 [facility] Last Admin: 11/11/16 05:21 Dose: 40 mg Spironolactone (Aldactone) 25 mg PO BID [facility] Last Admin: 11/10/16 18:19 Dose: 25 mg Zinc Sulfate (Zinc Sulfate 220 Mg Cap) 220 mg PO DAILY [facility] - Labs Labs: 11/11/16 06:15 11/11/16 06:15 PT 15.4 Seconds (9.9-11.8) H 11/09/16 07:10 INR 1.43 (0.93-1.08) H 11/09/16 07:10 APTT 29.0 Seconds (23.7-30.8) 11/08/16 11:30 - Constitutional Appears: Non-toxic - Head Exam Head Exam: ATRAUMATIC - Eye Exam Eye Exam: Normal appearance - ENT Exam ENT Exam: Normal Exam - Neck Exam Neck Exam: Normal Inspection - Respiratory Exam Respiratory Exam: NORMAL BREATHING PATTERN - Cardiovascular Exam Cardiovascular Exam: REGULAR RHYTHM - GI/Abdominal Exam GI & Abdominal Exam: Normal Bowel Sounds - Extremities Exam Additional comments: 2+ edema - Neurological Exam Neurological Exam: Alert, Oriented x3 - Psychiatric Exam Psychiatric exam: Normal Affect - Skin Skin Exam: Normal Color Assessment and Plan - Assessment and Plan (Free Text) Assessment: Acute Kidney Injury (N17.9) Acute on chronic systolic Heart failure Ascites Diabetic chronic Kidney Disease (E11.22) Hypertensive Chronic Kidney Disease (I12.9) Morbid obesity, YASMIN on CPAP Vit D deficiency Secondary hyperparathyroid of renal origin Plan No acute need for renal replacement therapy. Pt was previously seeing a fuller brush worker in [facility]] though does not know the name but is aware of his CKD though does not know what his prior renal function was agree w/ continued diuresis and ionotrope therapy as per cardiology. Iron is low agree w/ iron therapy, could consider IV iron agree w/ vit d supplement etiology of ascites? f/u spep results and kappa/prince.
[2016-11-11] MEDS: Hydrocerin(120 gm) TOP SCH (10:39)
[2016-11-11] MEDS: Collagenase 250 Units/gm Ointment(30 gm) TOP SCH (10:39)
[2016-11-11] MEDS: Morphine 2 mg/ml ISec IVP PRN (10:43)
[2016-11-11] MEDS: Prostat 15 g packet GT SCH ×4 (12:00→19:28)
--- NOTE | 2016-11-11 12:00 | CP.PCM.PN ---
<Archana Rosales - Last Filed: 11/11/16 11:52> Subjective - Date & Time of Evaluation Date of Evaluation: 11/11/16 Time of Evaluation: 11:52 - Subjective Subjective: A 65 yo male patient was seen at chair side this morning with Dr. Contreras concerning open ulcerations to Right bimalleolar aspect as well as Left dorsal aspect of 1st ray. Patient was resting comfortably in chair and denies of any acute overnight distress. Dressing to bilateral lower extremity appears cdi. He denies of any pain to bilateral extremity. Patient denies of any N/V/F/C or SOB today Objective - Vital Signs/Intake and Output Vital Signs (last 24 hours): Temp Pulse Resp BP Pulse Ox 97.7 F 89 20 146/87 100 11/11/16 05:58 11/11/16 05:58 11/11/16 05:58 11/11/16 10:38 11/11/16 05:58 Intake and Output: 11/11/16 11/11/16 06:59 18:59 Intake Total 915 100 Output Total 950 Balance -35 100 - Medications Medications: Current Medications Ascorbic Acid (Vitamin C 500 Mg Tab) 500 mg PO DAILY [facility] Last Admin: 11/11/16 10:35 Dose: 500 mg Aspirin (Aspirin Chewable) 81 mg PO DAILY [facility] Last Admin: 11/11/16 10:35 Dose: 81 mg Atorvastatin Calcium (Lipitor) 40 mg PO DIN [facility] Last Admin: 11/10/16 18:18 Dose: 40 mg Carvedilol (Coreg) 3.125 mg PO BID [facility] Last Admin: 11/11/16 10:36 Dose: 3.125 mg Cholecalciferol (Vitamin D) 2,000 iu PO DAILY [facility] Last Admin: 11/11/16 10:35 Dose: 2,000 iu Collagenase (Santyl) 0 gm TOP DAILY [facility] Last Admin: 11/11/16 10:39 Dose: Not Given Ferrous Sulfate (Feosol) 324 mg PO TID [facility] Last Admin: 11/11/16 10:36 Dose: 324 mg Furosemide (Lasix) 40 mg IVP Q12 [facility] Last Admin: 11/11/16 10:38 Dose: 40 mg Heparin Sodium (Porcine) (Heparin) 5,000 units SC Q12 [facility] PRN Reason: Protocol Last Admin: 11/11/16 10:37 Dose: 5,000 units Hydralazine HCl (Apresoline) 25 mg PO QID [facility] Last Admin: 11/11/16 11:00 Dose: 25 mg Milrinone Lactate/Dextrose (Primacor 20mg/100ml D5w) 100 mls @ 15.156 mls/hr IV .Q6H36M PRN; Protocol; 0.375 MCG/KG/MIN PRN Reason: TITRATE PER MD ORDER Last Admin: 11/11/16 10:40 Dose: 0.375 mcg/kg/min, 15.156 mls/hr Piperacillin Sod/Tazobactam Sod (Zosyn 2.25 Gm In 0.9% 100 Ml) 2.25 gm in 100 mls @ 100 mls/hr IVPB Q8H [facility] PRN Reason: Protocol Stop: 11/17/16 09:31 Last Admin: 11/11/16 11:01 Dose: 100 mls/hr Insulin Human Regular (Humulin R Low) 0 units SC ACHS [facility] PRN Reason: Protocol Last Admin: 11/11/16 08:34 Dose: Not Given Morphine Sulfate (Morphine) 2 mg IVP Q4H PRN PRN Reason: Pain, severe (8-10) Last Admin: 11/11/16 10:43 Dose: 2 mg Multi-Ingredient Cream (Hydrocerin Cream) 0 ea TOP DAILY [facility] Last Admin: 11/11/16 10:39 Dose: Not Given Pantoprazole Sodium (Protonix Ec Tab) 40 mg PO 0600 [facility] Last Admin: 11/11/16 05:21 Dose: 40 mg Spironolactone (Aldactone) 25 mg PO BID [facility] Last Admin: 11/11/16 10:36 Dose: 25 mg Zinc Sulfate (Zinc Sulfate 220 Mg Cap) 220 mg PO DAILY [facility] Last Admin: 11/11/16 11:00 Dose: 220 mg - Labs Labs: 11/11/16 06:15 11/11/16 06:15 PT 15.4 Seconds (9.9-11.8) H 11/09/16 07:10 INR 1.43 (0.93-1.08) H 11/09/16 07:10 APTT 29.0 Seconds (23.7-30.8) 11/08/16 11:30 - Constitutional Appears: Well, Non-toxic, No Acute Distress - Extremities Exam Additional comments: bilateral lower extremities exam DERM: Right - Open ulceration noted to either sides of malleolus each measuring 1cm x 1cmx 0.2cm with 100% fibrotic bases. Mild serous drainage is noted from both wounds. No purulent discharge is noted. No sign of acute infections is noted. No PTB Left - Open ulceration to dorsal aspect of Left 1st metatarsal measuring 7cm x 2cm x 0.2cm with 100% fibrotic base. No drainage is noted. No purulent discharge noted. No mal-odor is noted. No erythema around the wound is noted. No maceration noted to the wound edges. No sign of acute infections is noted. No PTB VASC: Non-palpable DP and PT noted bilaterally. CLUB DIRECTOR less than 3 seconds to all digits noted. ORTHO: Mild pain induced on palpation to ulcerations. Decreased ROM to joints distal to ankle NEURO: Gross sensation diminished to distal aspect of bilateral feet, tested with monofilament 9 points plantar feet - Neurological Exam Neurological Exam: Alert, Awake, Oriented x3 - Psychiatric Exam Psychiatric exam: Normal Affect, Normal Mood - Skin Skin Exam: Normal Color, Warm Assessment and Plan - Assessment and Plan (Free Text) Assessment: 65 yo male patient presents with open ulcerations to bilateral lower extremities Perez Stage II Plan: Patient was seen, evaluated at bedside with attending Dr. Contreras Labs and vitals reviewed Right - Right lower extremity cleansed with Sterile normal saline. Xeroform and DSD applied to ulcerations bilateral malleolus Left - Left foot cleansed with Sterile normal saline and dressed with Xeroform and DSD Ordered Santyl Left foot Wound culture :Serratia Marcescens Bilateral feet Xray negative of acute osteomyelitis Podiatry will follow in-house <Funmi Contreras - Last Filed: 11/22/16 19:30> Objective - Vital Signs/Intake and Output Vital Signs (last 24 hours): Temp Pulse Resp BP Pulse Ox 98.4 F 73 20 117/67 100 11/20/16 08:25 11/20/16 13:21 11/20/16 08:25 11/20/16 13:21 11/20/16 08:25 - Labs Labs: 11/20/16 06:50 11/20/16 06:50 PT 14.7 Seconds (9.9-11.8) H 11/18/16 09:50 INR 1.36 (0.93-1.08) H 11/18/16 09:50 APTT 31.6 Seconds (23.7-30.8) H 11/18/16 09:50 Attending/Attestation - Attestation I have personally seen and examined this patient.: Yes I have fully participated in the care of the patient.: Yes I have reviewed all pertinent clinical information, including history, physical exam and plan: Yes
--- NOTE | 2016-11-11 12:14 | CP.PCM.CON ---
History of Present Illness - History of Present Illness History of Present Illness: 65 year old male with PMH of chronic CHF, chronic renal failure, DM, morbid obesity with BMI 40, obstructive sleep apnea on CPAP, sciatica, HTN, S/P left foot debridement (2015) was initially admitted in [facility] because of low back pain and CHF and is being treated for these conditions. The patient also has open wounds on his right and left feet and is being seen by Podiatry. There was note of serous drainage on the right foot ulcers and was sent for cultures, showing gram negative bacilli. The patient apparently has had the ulcers for months, and slowly evolved since he had procedures done on his left foot which led to changes in his gait, probably contributing to his right foot ulcers. He denies animal contacts, no walking barefoot on soil, no soaking his feet in water. He has been seeing his P[employer] Attendant for local wound care. He has not been on antibiotics in the past 3 months. He also denies fever or chills, no nausea or vomiting, no chest pain, no SOB, no headache or dizziness, no abdominal pain, no diarrhea, no dysuria. Infectious diseases consult is requested to further evaluate and manage. Review of Systems - Review of Systems All systems: reviewed and no additional remarkable complaints except (as per HPI ) Past Patient History - Past Social History Smoking Status: Never Smoked - CARDIAC Hx Congestive Heart Failure: Yes (B/L LL +3 edema) Hx Hypertension: Yes - RENAL Hx Renal Failure: Yes (as per pt "his numbers are off") - ENDOCRINE/METABOLIC Hx Diabetes Mellitus Type 2: Yes - MUSCULOSKELETAL/RHEUMATOLOGICAL Hx Falls: No - PSYCHIATRIC Hx Substance Use: No - SURGICAL HISTORY Hx Surgeries: Yes Other/Comment: L great toe debridement - ANESTHESIA Hx Anesthesia: Yes Hx Anesthesia Reactions: No Hx Malignant Hyperthermia: No Meds Allergies/Adverse Reactions: Allergies Allergy/AdvReac Type Severity Reaction Status Date / Time No Known Allergies Allergy Verified 11/08/16 11:14 - Medications Medications: Current Medications Aspirin (Aspirin Chewable) 81 mg PO DAILY [facility] Last Admin: 11/10/16 09:09 Dose: 81 mg Atorvastatin Calcium (Lipitor) 40 mg PO DIN [facility] Last Admin: 11/10/16 18:18 Dose: 40 mg Carvedilol (Coreg) 3.125 mg PO BID [facility] Last Admin: 08/22/17 18:19 Dose: 3.125 mg Cholecalciferol (Vitamin D) 2,000 iu PO DAILY [facility] Last Admin: 11/10/16 10:23 Dose: 2,000 iu Ferrous Sulfate (Feosol) 324 mg PO TID [facility] Last Admin: 11/10/16 18:18 Dose: 324 mg Furosemide (Lasix) 40 mg IVP Q12 [facility] Last Admin: 11/10/16 21:51 Dose: 40 mg Heparin Sodium (Porcine) (Heparin) 5,000 units SC Q12 [facility] PRN Reason: Protocol Last Admin: 11/10/16 21:49 Dose: 5,000 units Hydralazine HCl (Apresoline) 25 mg PO QID [facility] Last Admin: 11/10/16 21:49 Dose: 25 mg Milrinone Lactate/Dextrose (Primacor 20mg/100ml D5w) 100 mls @ 15.156 mls/hr IV .Q6H36M PRN; Protocol; 0.375 MCG/KG/MIN PRN Reason: TITRATE PER MD ORDER Last Admin: 11/11/16 03:59 Dose: 0.375 mcg/kg/min, 15.156 mls/hr Piperacillin Sod/Tazobactam Sod (Zosyn 2.25 Gm In 0.9% 100 Ml) 2.25 gm in 100 mls @ 100 mls/hr IVPB Q8H [facility] PRN Reason: Protocol Stop: 11/17/16 09:31 Last Admin: 11/11/16 00:40 Dose: 100 mls/hr Insulin Human Regular (Humulin R Low) 0 units SC ACHS [facility] PRN Reason: Protocol Last Admin: 11/10/16 21:51 Dose: Not Given Morphine Sulfate (Morphine) 2 mg IVP Q4H PRN PRN Reason: Pain, severe (8-10) Last Admin: 11/10/16 20:09 Dose: 2 mg Pantoprazole Sodium (Protonix Ec Tab) 40 mg PO 0600 [facility] Last Admin: 11/11/16 05:21 Dose: 40 mg Spironolactone (Aldactone) 25 mg PO BID [facility] Last Admin: 11/10/16 18:19 Dose: 25 mg Physical Exam - Constitutional Appears: Non-toxic, No Acute Distress - Head Exam Head Exam: NORMAL INSPECTION - ENT Exam ENT Exam: Mucous Membranes Moist - Neck Exam Neck exam: Negative for: Lymphadenopathy, Meningismus - Respiratory Exam Respiratory Exam: Decreased Breath Sounds - Cardiovascular Exam Cardiovascular Exam: +S1, +S2 - GI/Abdominal Exam GI & Abdominal Exam: Soft. absent: Tenderness - Extremities Exam Additional comments: both feet with dry dressings in place Results - Vital Signs Recent Vital Signs: Last Vital Signs Temp 97.7 F 11/11/16 05:58 Pulse 89 11/11/16 05:58 Resp 20 11/11/16 05:58 BP 146/87 11/11/16 05:58 Pulse Ox 100 11/11/16 05:58 - Labs Result Diagrams: 11/11/16 06:15 11/11/16 06:15 Labs: Laboratory Results - last 24 hr 11/08/16 11/09/16 11/09/16 16:00 07:10 07:34 WBC RBC Hgb Hct MCV MCH MCHC RDW Plt Count MPV Gran % Lymph % (Auto) [place] % (Auto) Eos % (Auto) Baso % (Auto) Gran # Lymph # [place] # Eos # Baso # Sodium Potassium Chloride Carbon Dioxide Anion Gap BUN Creatinine Est GFR ( Amer) Est GFR (Non-Af Amer) POC Glucose (mg/dL) Random Glucose Calcium Phosphorus Magnesium Total Bilirubin AST ALT Alkaline Phosphatase Total Protein Albumin Globulin Albumin/Globulin Ratio RBC Folate 664 591 PTH Intact Whole Molec Hepatitis A IgM Ab Negative Hep Bs Antigen Negative Hep Bs Antibody Hep B Core IgM Ab Negative Hepatitis C Antibody Negative HIV 1&2 Antibody Screen 11/09/16 11/10/16 11/10/16 13:00 06:50 06:50 WBC 11.6 H RBC 3.05 L Hgb 8.5 L Hct 27.7 L MCV 90.8 MCH 27.9 MCHC 30.7 L RDW 19.4 H Plt Count 159 MPV 11.0 Gran % 86.3 H Lymph % (Auto) 4.0 L [place] % (Auto) 6.1 H Eos % (Auto) 3.5 Baso % (Auto) 0.1 Gran # 10.00 H Lymph # 0.5 L [place] # 0.7 H Eos # 0.4 Baso # 0.01 Sodium 146 Potassium 4.6 Chloride 115 H Carbon Dioxide 23 Anion Gap 13 BUN 94 H Creatinine 2.8 H Est GFR ( Amer) 28 Est GFR (Non-Af Amer) 23 POC Glucose (mg/dL) Random Glucose 167 H Calcium 8.3 L Phosphorus 3.2 Magnesium 2.3 H Total Bilirubin 1.2 AST 35 ALT 28 Alkaline Phosphatase 162 H Total Protein 6.4 Albumin 2.6 L Globulin 3.9 Albumin/Globulin Ratio 0.7 L RBC Folate PTH Intact Whole Molec 127 H Hepatitis A IgM Ab Hep Bs Antigen Negative Hep Bs Antibody Hep B Core IgM Ab Hepatitis C Antibody HIV 1&2 Antibody Screen 11/10/16 11/10/16 11/10/16 06:50 06:50 06:50 WBC RBC Hgb Hct MCV MCH MCHC RDW Plt Count MPV Gran % Lymph % (Auto) [place] % (Auto) Eos % (Auto) Baso % (Auto) Gran # Lymph # [place] # Eos # Baso # Sodium Potassium Chloride Carbon Dioxide Anion Gap BUN Creatinine Est GFR ( Amer) Est GFR (Non-Af Amer) POC Glucose (mg/dL) Random Glucose Calcium Phosphorus Magnesium Total Bilirubin AST ALT Alkaline Phosphatase Total Protein Albumin Globulin Albumin/Globulin Ratio RBC Folate PTH Intact Whole Molec Hepatitis A IgM Ab Hep Bs Antigen Hep Bs Antibody Positive Hep B Core IgM Ab Negative Hepatitis C Antibody Negative HIV 1&2 Antibody Screen Negative 11/10/16 11/10/16 11/10/16 07:39 13:04 15:54 WBC RBC Hgb 8.7 L Hct 28.1 L MCV MCH MCHC RDW Plt Count MPV Gran % Lymph % (Auto) [place] % (Auto) Eos % (Auto) Baso % (Auto) Gran # Lymph # [place] # Eos # Baso # Sodium Potassium Chloride Carbon Dioxide Anion Gap BUN Creatinine Est GFR ( Amer) Est GFR (Non-Af Amer) POC Glucose (mg/dL) 173 H 182 H Random Glucose Calcium Phosphorus Magnesium Total Bilirubin AST ALT Alkaline Phosphatase Total Protein Albumin Globulin Albumin/Globulin Ratio RBC Folate PTH Intact Whole Molec Hepatitis A IgM Ab Hep Bs Antigen Hep Bs Antibody Hep B Core IgM Ab Hepatitis C Antibody HIV 1&2 Antibody Screen 11/10/16 11/10/16 16:11 21:26 WBC RBC Hgb Hct MCV MCH MCHC RDW Plt Count MPV Gran % Lymph % (Auto) [place] % (Auto) Eos % (Auto) Baso % (Auto) Gran # Lymph # [place] # Eos # Baso # Sodium Potassium Chloride Carbon Dioxide Anion Gap BUN Creatinine Est GFR ( Amer) Est GFR (Non-Af Amer) POC Glucose (mg/dL) 183 H 203 H Random Glucose Calcium Phosphorus Magnesium Total Bilirubin AST ALT Alkaline Phosphatase Total Protein Albumin Globulin Albumin/Globulin Ratio RBC Folate PTH Intact Whole Molec Hepatitis A IgM Ab Hep Bs Antigen Hep Bs Antibody Hep B Core IgM Ab Hepatitis C Antibody HIV 1&2 Antibody Screen Assessment & Plan - Assessment and Plan (Free Text) Plan: Assessment Probable infected right foot ulcers with Serratia chronic CHF chronic renal failure DM morbid obesity with BMI 40 obstructive sleep apnea on CPAP sciatica HTN S/P left foot debridement (2015) Plan Patient was started on Zosyn - will change to Rocephin since the Serratia in the wound is sensitive Podiatry to continue local wound care - will discuss with Podiatry will monitor clinically
[2016-11-11] MEDS: cefTRIAXone 1 gm 1 GM/100 ML BAG IVPB SCH (13:41)
--- NOTE | 2016-11-11 13:59 | CP.PCM.PN ---
<MameCarlos - Last Filed: 11/11/16 13:54> Subjective - Date & Time of Evaluation Date of Evaluation: 11/11/16 Time of Evaluation: 07:50 - Subjective Subjective: Pt s/e bedside. Denies SOB at this time. Further denies any CP. Patient does state that his b/l LE swelling is about the same, with no improvement. Patient' s back pain is a 6/10 right now, he is due for a dose of morphine in about 30 minutes. Pain improved since admission. Denies f/ch/cp/sob/n/v/d. No new complaints. Objective - Vital Signs/Intake and Output Vital Signs (last 24 hours): Temp Pulse Resp BP Pulse Ox 97.1 F L 98 H 19 136/67 100 11/11/16 12:00 11/11/16 13:26 11/11/16 12:00 11/11/16 12:00 11/11/16 05:58 Intake and Output: 11/11/16 11/11/16 06:59 18:59 Intake Total 915 100 Output Total 950 Balance -35 100 - Medications Medications: Current Medications Ascorbic Acid (Vitamin C 500 Mg Tab) 500 mg PO DAILY [facility] Last Admin: 11/11/16 10:35 Dose: 500 mg Aspirin (Aspirin Chewable) 81 mg PO DAILY [facility] Last Admin: 11/11/16 10:35 Dose: 81 mg Atorvastatin Calcium (Lipitor) 40 mg PO DIN [facility] Last Admin: 11/10/16 18:18 Dose: 40 mg Carvedilol (Coreg) 3.125 mg PO BID [facility] Last Admin: 11/11/16 10:36 Dose: 3.125 mg Cholecalciferol (Vitamin D) 2,000 iu PO DAILY [facility] Last Admin: 11/11/16 10:35 Dose: 2,000 iu Collagenase (Santyl) 0 gm TOP DAILY [facility] Last Admin: 11/11/16 10:39 Dose: Not Given Ferrous Sulfate (Feosol) 324 mg PO TID [facility] Last Admin: 11/11/16 10:36 Dose: 324 mg Furosemide (Lasix) 40 mg IVP Q12 [facility] Last Admin: 11/11/16 10:38 Dose: 40 mg Heparin Sodium (Porcine) (Heparin) 5,000 units SC Q12 [facility] PRN Reason: Protocol Last Admin: 11/11/16 10:37 Dose: 5,000 units Hydralazine HCl (Apresoline) 25 mg PO QID [facility] Last Admin: 11/11/16 11:00 Dose: 25 mg Ceftriaxone Sodium (Rocephin 1 Gram Ivpb) 1 gm in 100 mls @ 100 mls/hr IVPB DAILY [facility] PRN Reason: Protocol Last Admin: 11/11/16 13:41 Dose: 100 mls/hr Milrinone Lactate/Dextrose (Primacor 20mg/100ml D5w) 100 mls @ 8.083 mls/hr IV .[id number] PRN; Protocol; 0.2 MCG/KG/MIN PRN Reason: TITRATE PER MD ORDER Last Admin: 11/11/16 13:42 Dose: 0.2 mcg/kg/min, 8.1 mls/hr Insulin Human Regular (Humulin R Low) 0 units SC ACHS [facility] PRN Reason: Protocol Last Admin: 11/11/16 13:31 Dose: Not Given Morphine Sulfate (Morphine) 2 mg IVP Q4H PRN PRN Reason: Pain, severe (8-10) Last Admin: 11/11/16 10:43 Dose: 2 mg Multi-Ingredient Cream (Hydrocerin Cream) 0 ea TOP DAILY [facility] Last Admin: 11/11/16 10:39 Dose: Not Given Pantoprazole Sodium (Protonix Ec Tab) 40 mg PO 0600 [facility] Last Admin: 11/11/16 05:21 Dose: 40 mg Spironolactone (Aldactone) 25 mg PO BID [facility] Last Admin: 11/11/16 10:36 Dose: 25 mg Zinc Sulfate (Zinc Sulfate 220 Mg Cap) 220 mg PO DAILY [facility] Last Admin: 11/11/16 11:00 Dose: 220 mg - Labs Labs: 11/11/16 06:15 11/11/16 06:15 PT 15.4 Seconds (9.9-11.8) H 11/09/16 07:10 INR 1.43 (0.93-1.08) H 11/09/16 07:10 APTT 29.0 Seconds (23.7-30.8) 11/08/16 11:30 - Additional Findings Additional findings: VS as below Constitutional: a&o x 4, nad Head and Neck: neck supple, no jvd, trachea midline, carotid midline, no cervical/head mass Eyes: nai, nonicteric sclera, eom intact ENT: auditory acuity grossly intact, throat not congested, no nasal deformity Cardio: rrr, no m/r/g, no carotid bruit, nml s1, s2 Pulm: no accessory muscle use, equal nml breath sounds bilaterally, ctab MSK: +Mild TTP in the lumbar area on the left Abd: s/nt/nd, nbs x 4 q, no palpable masses Derm: no rashes, no ulcers, no lesions Extr: 2-3+ pitting edema; malodorous feet; onychomycosis. Bandages just changed by Podiatry Neuro: cn II-XII grossly intact, ue and le 5/5 muscle strength bilaterally, no los ue, le bilaterally and core Assessment and Plan - Assessment and Plan (Free Text) Assessment: 65yo male with extensive history including CHF, CKD, YASMIN, HTN, DM2 presents c/o low back pain and dyspnea Plan: 1. CHF -Patient admitted to telemetry for monitoring -EKG reviewed; revealed sinus rhythm at 69bpm, low voltage qrs, possible anterolateral infarct (age undetermined) -CXR reviewed; cardiomegaly -Troponin 0.09 indeterminate, will trend [place] [id number] -Patient started on lasix 40mg IVP q12h, aldactone 25mg PO BID, coreg 3.125mg PO BID pending pharmacy medications reconciliation -Echocardiogram LVEF - 22.4% -Strict I's and O's -Daily Weight -HOB > 45' -Cardiology consulted - Dr. Watt Hold Bumex Milrinone Aldactone Lasix 2. Low back pain -Lumbar spine x-ray: no acute disease -Pain control 3. CKD -Unknown staging/baseline; Creatinine on admission 3.3, will trend -Urine studies pending: random urine sodium, creatinine, urea -Will avoid nephrotoxic agents and renally dose medications -Nephrology consulted - Dr. Carreon No acute need for renal replacement therapy at this time. discussed with patient that due to his advanced renal insuff, CHF and fluid overload, dialysis could be anticipated in near future such as months. Pt advised to abstain from NSAIDs completely. Hypertension control with meds as ordered. Patient on RAAS lei with aldactone Agree with iron supplements Continue with diuretics. Monitor Input/Output, daily weights and renal function with basic metabolic panel Check urine analysis, spot protein/creatinine and albumin/creatinine ratio, renal/bladder sonogram. Check for 25-OH vitamin D, iPTH level Check serum protein electrophoresis with immunofixation, kappa/lambda ratio also check HIV/Hep B and Hep C serology Dose meds/antibiotics for reduced GFR. Avoid fleets enema/magnesium based laxatives. Avoid nephrotoxins/NSAIDs/ iodinated contrast (unless needed emergently) Glycemic control 4. Left toe abscess, Right foot infection - ID C/s: Patient was started on Zosyn - will change to Rocephin since the Serratia in the wound is sensitive - Podiatry C/s: Right - Right lower extremity cleansed with Sterile normal saline. Xeroform and DSD applied to ulcerations bilateral malleolus Left - Left foot cleansed with Sterile normal saline and dressed with Xeroform and DSD Ordered Santyl Left foot Wound culture :Serratia Marcescens Bilateral feet Xray negative of acute osteomyelitis 5. DM type 2 -Consistent carb/heart healthy diet -Fingersticks ACHS -Humulin low dose ISS -Oral agents held 6. Anemia -Anemia workup pending including: Iron, Ferritin, TIBC, B12, Folate, Reticulocyte count -No overt signs of bleeding, will continue to follow H/H 7. Hypertension -Antihypertensives pending confirmation with patient's pharmacy; in the meantime , continue lasix and aldactone 8. YASMIN -CPAP at night; titrate to maintain O2sat > 90% 9. GI/DVT Prophylaxis -Protonix/Heparin SC Records obtained from [facility] - Dr. Glover seen there for pain. No active pain management, patient needs to get a CT and MRI outpatient. Patient seen and case discussed with attending, Dr. Faith <Chris Ley - Last Filed: 12/31/16 18:49> Objective - Vital Signs/Intake and Output Vital Signs (last 24 hours): Temp Pulse Resp BP Pulse Ox 98.4 F 73 20 117/67 100 11/20/16 08:25 11/20/16 13:21 11/20/16 08:25 11/20/16 13:21 11/20/16 08:25 - Labs Labs: 11/20/16 06:50 11/20/16 06:50 PT 14.7 Seconds (9.9-11.8) H 11/18/16 09:50 INR 1.36 (0.93-1.08) H 11/18/16 09:50 APTT 31.6 Seconds (23.7-30.8) H 11/18/16 09:50 Attending/Attestation - Attestation I have personally seen and examined this patient.: Yes I have fully participated in the care of the patient.: Yes I have reviewed all pertinent clinical information, including history, physical exam and plan: Yes Notes (Text): 12/31/16 18:49 Medical record note made by the resident after discussion with my direction and input after the patient was personally seen and examined by me. I have reviewed the chart and agree that the record accurately reflects by personal performance of the history, physical exam, data review, and medical decision-making, in the course for the patient. I have also personally directed the plan of care.
[2016-11-11 14:58] LABS: KAPPA QUANTITATIVE 678 mg/dL (176-443); LAMBDA QUANTITATIVE 400 mg/dL (91-240)
--- NOTE | 2016-11-11 15:25 | PN ---
DATE: 11/11/2016 SUBJECTIVE: The patient's breathing is much improved. PHYSICAL EXAMINATION: VITAL SIGNS: Blood pressure is 136/67, heart rate in the 90s. NECK: Negative JVD. LUNGS: Clear to auscultation. HEART: Reveal S1, S2. EXTREMITIES: His edema is much improved with residual ulcers in his feet. LABORATORY DATA: Hemoglobin is 8.2. Chemistries, BUN and creatinine is 99 and 3.1 with a potassium of 4.5 ASSESSMENT 1. Improvement of his congestive heart failure and IV inotropic therapy. 2. Dilated cardiomyopathy. 3. Improved chronic edema. 4. Renal insufficiency. 5. Diabetes mellitus. 6. Hypertension. 7. Episodes of nonsustained ventricular tachycardia. PLAN: Given these findings, we will begin tapering his Primacor. We will decrease the dosage to 0.2 today. Kamari Watt MD
--- NOTE | 2016-11-12 03:44 | CON ---
DATE: 11/11/2016 CHIEF COMPLAINT/HISTORY OF PRESENT ILLNESS: This is a 65-year-old -[place]one[place] male who is morbidly obese and noncompliant. He has a long standing history of diabetes and hypertension. His creatinine on admission is approximately 3. He has a history of CHF and left ventricular dysfunction. He was being evaluated for a defibrillator. He has sleep apnea and has been complaining of back pain. I was asked to see the patient concerning his peripheral vascular disease and foot ulcerations. He has a superficial ulceration on the dorsum of the foot. It has been present for almost a year. for greater than a year. He has been receiving his care at [facility]. This has included hyperbaric treatment and skin grafts. He also has superficial ulcerations on the medial and lateral aspect of the right ankle. His femoral pulses are easily palpable. His popliteal and distal pulses are not palpable. MATTHEW/PVR exam done on admission is relatively normal on the right. On the left, there is suggestion of left iliac/common femoral artery occlusive disease. The left ankle and metatarsal PVR waveforms are pulsatile, but moderately blunted. RECOMMENDATIONS: Most importantly, this patient needs to become more compliant with his overall healthcare. I spoke with Dr. Contreras concerning the situation. Any tests to evaluate his run off is associated with high risk for dialysis. At the present time, his wounds are clean and superficial. I would prefer to try to manage this conservatively at this time and only intervene if the wounds deteriorate. Dr. Contreras agrees and will follow up with the patient. Kamari Mohan MD MTDSola
[2016-11-12] MEDS: Pantoprazole 40 mg EC Tab PO SCH (05:25)
[2016-11-12] MEDS: Milrinone 20mg/100ml D5W 100 ML IV PRN (06:58)
[2016-11-12 07:23] LABS: BASO # 0.01 K/mm3 (0.0-2.0); BASO % 0.1 % (0.0-3.0); EOS # 0.3 (0.0-0.7); EOS % 2.4 % (1.5-5.0); GRAN # 8.9 (1.4-6.5); GRAN % 85.6 % (50.0-68.0); HEMATOCRIT 24.8 % (42.0-52.0); LYMPH # 0.2 (1.2-3.4); LYMPH % 2.1 % (22.0-35.0); MEAN CELL VOLUME 89.9 fl (80.0-105.0); MEAN CORPUSCULAR HEMOGLOBIN 27.9 pg (25.0-35.0); MONO % 9.8 % (1.0-6.0); RED CELL DISTRIBUTION WIDTH 19.4 % (11.5-14.5); WHITE BLOOD COUNT 10.4 10^3/ul (4.5-11.0)
[2016-11-12 07:35] LABS: ALB/GLOB RATIO 0.7 (1.1-1.8); BILIRUBIN,TOTAL 1.5 mg/dL (0.2-1.3); CALCIUM 8.5 mg/dL (8.4-10.5); MAGNESIUM 2.2 mg/dL (1.7-2.2); PHOSPHOROUS 3.3 mg/dL (2.5-4.5); POTASSIUM 4.6 mmol/L (3.6-5.0); TOTAL PROTEIN 7.4 g/dL (5.8-8.3)
[2016-11-12] MEDS: Insulin Reg-LOW-Coverage SC SCH ×4 (08:58→22:44)
--- NOTE | 2016-11-12 09:46 | CP.PCM.PN ---
<Archana Rosales - Last Filed: 11/12/16 09:39> Subjective - Date & Time of Evaluation Date of Evaluation: 11/12/16 Time of Evaluation: 09:39 - Subjective Subjective: 65 yo male patient was seen at bedside this morning with Dr. Contreras concerning open ulcerations to Right bimalleolar aspect and Left dorsal aspect of 1st ray. Patient denies of any acute overnight distress. Dressing to bilateral lower extremity appears cdi. He denies of any pain to bilateral extremity. Patient denies of any N/V/F/C or SOB today Objective - Vital Signs/Intake and Output Vital Signs (last 24 hours): Temp Pulse Resp BP Pulse Ox 98.3 F 96 H 20 123/60 100 11/12/16 06:00 11/12/16 06:00 11/12/16 06:00 11/12/16 06:00 11/12/16 06:00 Intake and Output: 11/12/16 11/12/16 06:59 18:59 Intake Total 665 Output Total 100 Balance 565 - Medications Medications: Current Medications Ascorbic Acid (Vitamin C 500 Mg Tab) 500 mg PO DAILY [facility] Last Admin: 11/11/16 10:35 Dose: 500 mg Aspirin (Aspirin Chewable) 81 mg PO DAILY [facility] Last Admin: 11/11/16 10:35 Dose: 81 mg Atorvastatin Calcium (Lipitor) 40 mg PO DIN [facility] Last Admin: 11/11/16 18:00 Dose: 40 mg Carvedilol (Coreg) 3.125 mg PO BID [facility] Last Admin: 11/11/16 18:00 Dose: 3.125 mg Cholecalciferol (Vitamin D) 2,000 iu PO DAILY [facility] Last Admin: 11/11/16 10:35 Dose: 2,000 iu Collagenase (Santyl) 0 gm TOP DAILY [facility] Last Admin: 11/11/16 10:39 Dose: Not Given Ferrous Sulfate (Feosol) 324 mg PO TID [facility] Last Admin: 11/11/16 18:00 Dose: 324 mg Furosemide (Lasix) 40 mg IVP Q12 [facility] Last Admin: 11/11/16 21:14 Dose: 40 mg Heparin Sodium (Porcine) (Heparin) 5,000 units SC Q12 [facility] PRN Reason: Protocol Last Admin: 11/11/16 21:13 Dose: 5,000 units Hydralazine HCl (Apresoline) 25 mg PO QID [facility] Last Admin: 11/11/16 21:13 Dose: 25 mg Ceftriaxone Sodium (Rocephin 1 Gram Ivpb) 1 gm in 100 mls @ 100 mls/hr IVPB DAILY [facility] PRN Reason: Protocol Last Admin: 11/11/16 13:41 Dose: 100 mls/hr Insulin Human Regular (Humulin R Low) 0 units SC ACHS [facility] PRN Reason: Protocol Last Admin: 11/12/16 08:58 Dose: 1 units Morphine Sulfate (Morphine) 2 mg IVP Q4H PRN PRN Reason: Pain, severe (8-10) Last Admin: 11/11/16 10:43 Dose: 2 mg Multi-Ingredient Cream (Hydrocerin Cream) 0 ea TOP DAILY [facility] Last Admin: 11/11/16 10:39 Dose: Not Given Pantoprazole Sodium (Protonix Ec Tab) 40 mg PO 0600 [facility] Last Admin: 11/12/16 05:25 Dose: 40 mg Spironolactone (Aldactone) 25 mg PO BID [facility] Last Admin: 11/11/16 18:00 Dose: 25 mg Zinc Sulfate (Zinc Sulfate 220 Mg Cap) 220 mg PO DAILY [facility] Last Admin: 11/11/16 11:00 Dose: 220 mg - Labs Labs: 11/12/16 06:30 11/12/16 06:30 PT 15.4 Seconds (9.9-11.8) H 11/09/16 07:10 INR 1.43 (0.93-1.08) H 11/09/16 07:10 APTT 29.0 Seconds (23.7-30.8) 11/08/16 11:30 - Constitutional Appears: Well, Non-toxic, No Acute Distress - Head Exam Head Exam: ATRAUMATIC - Extremities Exam Additional comments: bilateral lower extremities exam DERM: Right - Open ulceration noted to either sides of malleolus each measuring 1cm x 1cmx 0.2cm with 100% fibrotic bases. Mild serous drainage is noted from both wounds. No purulent discharge is noted. No sign of acute infections is noted. No PTB Left - Open ulceration to dorsal aspect of Left 1st metatarsal measuring 7cm x 2cm x 0.2cm with 100% fibrotic base. No drainage is noted. No purulent discharge noted. No mal-odor is noted. No erythema around the wound is noted. No maceration noted to the wound edges. No sign of acute infections is noted. No PTB VASC: Non-palpable DP and PT noted bilaterally. [employer] less than 3 seconds to all digits noted. ORTHO: Mild pain induced on palpation to ulcerations. Decreased ROM to joints distal to ankle NEURO: Gross sensation diminished to distal aspect of bilateral feet, tested with monofilament 9 points plantar feet - Neurological Exam Neurological Exam: Alert, Awake, Oriented x3 - Psychiatric Exam Psychiatric exam: Normal Affect, Normal Mood - Skin Skin Exam: Normal Color, Warm Assessment and Plan - Assessment and Plan (Free Text) Assessment: 65 yo male patient presents with open ulcerations to bilateral lower extremities Perez Stage II Plan: Patient was seen, evaluated at bedside with attending Dr. Contreras Labs and vitals reviewed Right - Right lower extremity cleansed with Sterile normal saline. Santyl and DSD applied to ulcerations bilateral malleolus Left - Left foot cleansed with Sterile normal saline and dressed with Santyl and DSD MRI (-)OM Left CWX :Serratia Marcescens Podiatry will follow in-house <Funmi Contreras - Last Filed: 11/22/16 19:34> Objective - Vital Signs/Intake and Output Vital Signs (last 24 hours): Temp Pulse Resp BP Pulse Ox 98.4 F 73 20 117/67 100 11/20/16 08:25 11/20/16 13:21 11/20/16 08:25 11/20/16 13:21 11/20/16 08:25 - Labs Labs: 11/20/16 06:50 11/20/16 06:50 PT 14.7 Seconds (9.9-11.8) H 11/18/16 09:50 INR 1.36 (0.93-1.08) H 11/18/16 09:50 APTT 31.6 Seconds (23.7-30.8) H 11/18/16 09:50 Attending/Attestation - Attestation I have personally seen and examined this patient.: Yes I have fully participated in the care of the patient.: Yes I have reviewed all pertinent clinical information, including history, physical exam and plan: Yes
[2016-11-12] MEDS: Collagenase 250 Units/gm Ointment(30 gm) TOP SCH (09:49)
[2016-11-12] MEDS: cefTRIAXone 1 gm 1 GM/100 ML BAG IVPB SCH (09:49)
--- NOTE | 2016-11-12 10:16 | CP.PCM.PN ---
Subjective - Date & Time of Evaluation Date of Evaluation: 11/12/16 Time of Evaluation: 08:45 - Subjective Subjective: Comfortable in bed although at times he feels his sciatica acts up. No fevers overnight, breathing better, less pain in the feet. Objective - Vital Signs/Intake and Output Vital Signs (last 24 hours): Temp Pulse Resp BP Pulse Ox 98.3 F 96 H 20 123/60 100 11/12/16 06:00 11/12/16 06:00 11/12/16 06:00 11/12/16 06:00 11/12/16 06:00 Intake and Output: 11/11/16 11/12/16 18:59 06:59 Intake Total 400 460 Output Total 400 100 Balance 0 360 - Medications Medications: Current Medications Ascorbic Acid (Vitamin C 500 Mg Tab) 500 mg PO DAILY [facility] Last Admin: 11/11/16 10:35 Dose: 500 mg Aspirin (Aspirin Chewable) 81 mg PO DAILY [facility] Last Admin: 11/11/16 10:35 Dose: 81 mg Atorvastatin Calcium (Lipitor) 40 mg PO DIN [facility] Last Admin: 11/11/16 18:00 Dose: 40 mg Carvedilol (Coreg) 3.125 mg PO BID [facility] Last Admin: 11/11/16 18:00 Dose: 3.125 mg Cholecalciferol (Vitamin D) 2,000 iu PO DAILY [facility] Last Admin: 11/11/16 10:35 Dose: 2,000 iu Collagenase (Santyl) 0 gm TOP DAILY [facility] Last Admin: 11/11/16 10:39 Dose: Not Given Ferrous Sulfate (Feosol) 324 mg PO TID [facility] Last Admin: 11/11/16 18:00 Dose: 324 mg Furosemide (Lasix) 40 mg IVP Q12 [facility] Last Admin: 11/11/16 21:14 Dose: 40 mg Heparin Sodium (Porcine) (Heparin) 5,000 units SC Q12 [facility] PRN Reason: Protocol Last Admin: 11/11/16 21:13 Dose: 5,000 units Hydralazine HCl (Apresoline) 25 mg PO QID [facility] Last Admin: 11/11/16 21:13 Dose: 25 mg Ceftriaxone Sodium (Rocephin 1 Gram Ivpb) 1 gm in 100 mls @ 100 mls/hr IVPB DAILY [facility] PRN Reason: Protocol Last Admin: 11/11/16 13:41 Dose: 100 mls/hr Milrinone Lactate/Dextrose (Primacor 20mg/100ml D5w) 100 mls @ 8.083 mls/hr IV .[id number] PRN; Protocol; 0.2 MCG/KG/MIN PRN Reason: TITRATE PER MD ORDER Last Admin: 11/11/16 20:21 Dose: 0.2 mcg/kg/min, 8.083 mls/hr Insulin Human Regular (Humulin R Low) 0 units SC ACHS [facility] PRN Reason: Protocol Last Admin: 11/11/16 21:13 Dose: Not Given Morphine Sulfate (Morphine) 2 mg IVP Q4H [facility]N PRN Reason: Pain, severe (8-10) Last Admin: 11/11/16 10:43 Dose: 2 mg Multi-Ingredient Cream (Hydrocerin Cream) 0 ea TOP DAILY [facility] Last Admin: 11/11/16 10:39 Dose: Not Given Pantoprazole Sodium (Protonix Ec Tab) 40 mg PO 0600 [facility] Last Admin: 11/12/16 05:25 Dose: 40 mg Spironolactone (Aldactone) 25 mg PO BID [facility] Last Admin: 11/11/16 18:00 Dose: 25 mg Zinc Sulfate (Zinc Sulfate 220 Mg Cap) 220 mg PO DAILY [facility] Last Admin: 11/11/16 11:00 Dose: 220 mg - Labs Labs: 11/11/16 06:15 11/11/16 06:15 PT 15.4 Seconds (9.9-11.8) H 11/09/16 07:10 INR 1.43 (0.93-1.08) H 11/09/16 07:10 APTT 29.0 Seconds (23.7-30.8) 11/08/16 11:30 - Constitutional Appears: Non-toxic, No Acute Distress - Head Exam Head Exam: NORMAL INSPECTION - ENT Exam ENT Exam: Mucous Membranes Moist - Neck Exam Neck Exam: absent: Meningismus - Respiratory Exam Respiratory Exam: Decreased Breath Sounds - Cardiovascular Exam Cardiovascular Exam: +S1, +S2 - GI/Abdominal Exam GI & Abdominal Exam: Soft. absent: Tenderness - Extremities Exam Additional comments: both feet with dressings in place Assessment and Plan - Assessment and Plan (Free Text) Plan: Assessment Probable infected right foot ulcers with Serratia chronic CHF chronic renal failure DM morbid obesity with BMI 40 obstructive sleep apnea on CPAP sciatica HTN S/P left foot debridement (2015) Plan continue Rocephin day 2 since the Serratia in the wound is sensitive Podiatry to continue local wound care - will get xray of the right foot (left foot xray did not show osteomyelitis - where he had hallux amputation) will continue to monitor clinically
--- NOTE | 2016-11-12 11:21 | PN ---
DATE: 11/12/2016 CARDIOLOGY FOLLOWUP SUBJECTIVE: The patient's breathing is unchanged on tapering milrinone. The patient's wound in the left foot is healing. PHYSICAL EXAMINATION: VITAL SIGNS: Blood pressure is 123/60, heart rate in the 90s. NECK: Negative JVD. LUNGS: Decreased breath sounds without rales. HEART: S1 and S2. EXTREMITIES: Chronic edematous changes. His ulcers appear clean. LABORATORY DATA: Hemoglobin is 7.7. Chemistries, BUN and creatinine is 101 and 3.4. Glucose is 131. IMPRESSION: 1. Acute systolic congestive heart failure which is better. 2. Progressive renal disease. 3. Chronic edema in the lower extremities. 4. Foot ulcers. 5. Diabetes mellitus. 6. Renal insufficiency. PLAN: Given these findings, we will DC the milrinone today. His diabetic cardiomyopathy as well as his renal insufficiency will make his treatment of his CHF symptoms difficult. However, his CHF symptoms are much controlled at this point. Kamari Watt MD
[2016-11-12] MEDS: Hydrocerin(120 gm) TOP SCH (11:59)
[2016-11-12] MEDS: Ergocalciferol 50,000 Intl Units Cap PO SCH (12:08)
[2016-11-12] MEDS: Prostat 15 g packet GT SCH ×2 (12:46→17:48)
[2016-11-12 13:30] LABS: IRON 16 ug/dL (45-180)
--- NOTE | 2016-11-12 13:35 | RAD ---
PROCEDURE: Right Foot Radiographs. HISTORY: rule out osteomyelitis COMPARISON: None. FINDINGS: BONES: No acute fracture. There is erosion of the distal lateral and medial aspect of the 5th proximal phalanx. There is a long erosion with sclerotic border involving the distal lateral diaphysis of the 5th metatarsal. There is erosion of the medial distal aspect of the 1st proximal phalanx with overhanging edges suggestive of possible gouty arthritis. There is similar erosion of the distal medial aspect of the 1st metatarsal, again with overhanging edges, suggesting possible gouty arthritis. There is a small erosion at the proximal medial aspect of the medial cuneiform. There is no periosteal reaction appreciated. JOINTS: No dislocation. No subluxation. Mild hallux valgus. SOFT TISSUES: Normal. OTHER FINDINGS: None. IMPRESSION: No plain radiographic evidence of osteomyelitis. Multiple osseous erosions, some with overhanging edges suggestive of possible gouty arthritis. No fracture.
[2016-11-12] MEDS ORDERED: Darbepoetin Alfa 60 mcg/ml Inj SC ONE (13:53)
--- NOTE | 2016-11-12 14:00 | CP.PCM.PN ---
Subjective - Date & Time of Evaluation Date of Evaluation: 11/12/16 Time of Evaluation: 13:54 - Subjective Subjective: FOllow up Nephrology Consultation: Assessment: Stable Acute Kidney Injury (N17.9) possibly due to Chronic NSAIDs use. also contribution by his severe CHF (cardio-renal) Fluid overload, Anasarca with CHF exacerbation Diabetic chronic Kidney Disease (E11.22) Hypertensive Chronic Kidney Disease (I12.9) Chronic Kidney Disease (N18.9) Stage with 200 proteinuria (R80.9) possibly due to his long standing hx of HTN, atherosclerotic vasc disease Anemia (D64.9), HTN (I12.9), DM, CHF, Morbid obesity, YASMIN on CPAP, back pain, Hypernatremia, heel ulcers, ventral hernia, ascites Vit D def and secondary hyperparathyroidism Plan No acute need for renal replacement therapy at this time. Patient aware that due to his advanced renal insuff, CHF and fluid overload, dialysis could be anticipated in near future such as months. Pt advised to abstain from NSAIDs completely. Hypertension control with meds as ordered. Patient on RAAS lei with aldactone Agree with iron supplements. will give dose of Aransep 60 mcg today. PRBC as needed. will start weekly Vit D 50,000 unit x 8 doses. also started on flomax 0.4 mg/ day. recommend urology eval for elevated PVR on sonogram. continue with diuretics. Monitor Input/Output, daily weights and renal function with basic metabolic panel wound care. Dose meds/antibiotics for reduced GFR. Avoid fleets enema/magnesium based laxatives. Avoid nephrotoxins/NSAIDs/ iodinated contrast (unless needed emergently) Glycemic control Further work up/management as per primary team Thanks for allowing me to participate in care of your patient. Will follow patient with you. 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 He has been taking NSAIDs as Advil (3 tab) and alleve (2 tab) per day on most days for last few weeks to control his pain. He denies any urinary complaints such as heistancy or intermittency or nocturia he does feel swollen, like a balloon. Denies chest pain, palpitation, shortness of breath,c/o leg swelling Denies blood or bubbles in urine Denies OTC/herbal meds No recent iodinated contrast exposure. No obvious episodes of low BP. ROS: Constitutional Symptoms: Denies fever. No chills. had gained weight Eyes: denies change in vision, denies watery eyes, denies double vision Ears/Nose/Mouth/Throat: Denies Abnormal Taste. No Bad breath no Bad Taste. Cardiovascular: No chest pain. There is no shortness of breath. No palpitations. Pulmonary: No shortness of breath no cough now. Gastrointestinal: denies abdominal pain No nausea. No vomiting. Denies change in bowel habits. Denies Bleeding Genitourinary: No Change in force of strain when urinating. No increase in urinary frequency. No pain while urinating. Denies blood in urine. Neurological: Denies headaches. No dizziness. Denies loss of balance. Denies weakness, denies tingling/numbness Dermatological: No Rash or Bruising but had heel/feet ulcers. Psychiatric: Denies Anxiety. No depression. Denies hallucinations. Rheumatological: c/o low back pain. Denies Joint swelling Endocrine: Denies tiredness/Fatigue denies Heat/Cold Intolerance. All other negative Physical Examination: General Appearance: Comfortable, in no acute respiratory distress, co-operative . Obese Vitals reviewed and noted as below Head; Atraumatic, normocephalic ENT: no ulcers no thrush. Tongue is midline. Oropharynx: no rash or ulcers. EYES: Pupils are equal, round and reactive to light accommodation. Eye muscles and extraocular movement intact. Sclera is anicteric. Neck; supple no lymphadenopathy, no thyromegaly or bruit Lungs: Normal respiratory rate/effort. Breath sounds bilateral equal and clear except somewhat decreased at bases Heart: Normal rate. s1s2 normal. No rub or gallop. Extremities: 2+ edema with chronic venous stasis changes in legs and skin very thickened to touch. No varicose veins. both heels dressed Neurological: Patient is alert, awake and oriented to person, place and time. No focal deficit. Strength bilateral appropriate and equal Skin: Warm and dry. Normal turgor. No rash. Palpitation: Normal elasticity for age Abdomen: Abdomen is distended. has midline ventral hernia. has abdomen wall edema. Bowel sounds +. There is no abdominal tenderness, no guarding/rigidity. Unable to examine/appreciate organomegaly due to obesity/edema and distension of abdomen Psych: normal insight and normal affect/mood MSK: no joint tenderness or swelling. Digits and nails normal, no deformity : kidney or bladder not palpable but exam very limited. has scrotal edema Labs/imaging/EKG reviewed. Past medical history, past surgical history, family history, social history, allergy reviewed and noted as below Family hx: no hx of CKD. Rest non-contributory Work up: UA: no blood or prot Phos 3.5 Mg 2.5 Albumin 3 TSAT 10% Ferritin 101 CXr: pulm congestion Echo: EF 22% [place]/lambda ratio Normal Renal and bladder sono: PVR 438 ml but also had ascites hence PVR can be false + elevated on sonogram. Vit D 13 PTH 120 Objective - Vital Signs/Intake and Output Vital Signs (last 24 hours): Temp Pulse Resp BP Pulse Ox 98 F 95 H 20 146/75 100 11/12/16 12:00 11/12/16 12:00 11/12/16 12:00 11/12/16 12:00 11/12/16 06:00 Intake and Output: 11/12/16 11/12/16 06:59 18:59 Intake Total 665 Output Total 100 Balance 565 - Medications Medications: Current Medications Ascorbic Acid (Vitamin C 500 Mg Tab) 500 mg PO DAILY [facility] Last Admin: 11/12/16 09:47 Dose: 500 mg Aspirin (Aspirin Chewable) 81 mg PO DAILY [facility] Last Admin: 11/12/16 09:46 Dose: 81 mg Atorvastatin Calcium (Lipitor) 40 mg PO DIN [facility] Last Admin: 11/11/16 18:00 Dose: 40 mg Carvedilol (Coreg) 3.125 mg PO BID [facility] Last Admin: 11/12/16 09:47 Dose: 3.125 mg Collagenase (Santyl) 0 gm TOP DAILY [facility] Last Admin: 11/12/16 09:49 Dose: Not Given Darbepoetin Richi (Aranesp) 60 mcg SC ONCE ONE Stop: 11/12/16 13:54 Ergocalciferol (Drisdol 50,000 Intl Units Cap) 1 cap PO Q7D [facility] Last Admin: 11/12/16 12:08 Dose: 1 cap Ferrous Sulfate (Feosol) 324 mg PO TID [facility] Last Admin: 11/12/16 09:46 Dose: 324 mg Furosemide (Lasix) 40 mg IVP Q12 [facility] Last Admin: 11/12/16 09:48 Dose: 40 mg Heparin Sodium (Porcine) (Heparin) 5,000 units SC Q12 [facility] PRN Reason: Protocol Last Admin: 11/12/16 09:46 Dose: 5,000 units Hydralazine HCl (Apresoline) 25 mg PO QID [facility] Last Admin: 11/12/16 09:47 Dose: 25 mg Ceftriaxone Sodium (Rocephin 1 Gram Ivpb) 1 gm in 100 mls @ 100 mls/hr IVPB DAILY [facility] PRN Reason: Protocol Last Admin: 11/12/16 09:49 Dose: 100 mls/hr Insulin Human Regular (Humulin R Low) 0 units SC ACHS [facility] PRN Reason: Protocol Last Admin: 11/12/16 12:03 Dose: 1 units Morphine Sulfate (Morphine) 2 mg IVP Q4H PRN PRN Reason: Pain, severe (8-10) Last Admin: 11/11/16 10:43 Dose: 2 mg Multi-Ingredient Cream (Hydrocerin Cream) 0 ea TOP DAILY [facility] Last Admin: 11/12/16 11:59 Dose: Not Given Pantoprazole Sodium (Protonix Ec Tab) 40 mg PO 0600 [facility] Last Admin: 11/12/16 05:25 Dose: 40 mg Spironolactone (Aldactone) 25 mg PO BID [facility] Last Admin: 11/12/16 09:48 Dose: 25 mg Tamsulosin HCl (Flomax) 0.4 mg PO DAILY [facility] Last Admin: 11/12/16 12:08 Dose: 0.4 mg Zinc Sulfate (Zinc Sulfate 220 Mg Cap) 220 mg PO DAILY [facility] Last Admin: 11/12/16 09:46 Dose: 220 mg - Labs Labs: 11/12/16 06:30 11/12/16 06:30 PT 15.4 Seconds (9.9-11.8) H 11/09/16 07:10 INR 1.43 (0.93-1.08) H 11/09/16 07:10 APTT 29.0 Seconds (23.7-30.8) 11/08/16 11:30
[2016-11-12] MEDS: Morphine 2 mg/ml ISec IVP PRN (14:28)
--- NOTE | 2016-11-12 16:21 | CP.PCM.CON ---
<Tru Cruz - Last Filed: 11/12/16 16:21> History of Present Illness - History of Present Illness History of Present Illness: Heme/Onc Consult note for Dr Bermudez: 65 M with PMH of chronic CHF, chronic renal failure, DM, morbid obesity- BMI 40 , YASMIN on CPAP, sciatica, HTN, S/P left foot debridement (2015) was [place] [facility] [place]F symptoms. Pt has since been treated for this. Pt also has PVD with wounds on his R and L foot being seen by podiatry , ID, and IR/vascular surgery. I have been consulted for back pain, renal failure, and anemia. At this time pt states that he has his sciatica pain but it is well controlled with pain meds - Morphine. He yuniel any other symptoms. Denies any fevers, sob, chest pain, abd pain, palpitations, n/v/d. PMHx: CHF , CKD, DMT2, Sciatica, hypertension, YASMIN on CPAP PSHx: Left foot debridement Allergies: NKDA Med: refer to [facility] Social Hx: , Denies smoking, social alcohol use, denies illicit drugs Family Hx: Mother with DMT2; no siblings Review of Systems - Review of Systems All systems: reviewed and no additional remarkable complaints except (HPI) Past Patient History - Past Social History Smoking Status: Never Smoked - CARDIAC Hx Congestive Heart Failure: Yes (B/L LL +3 edema) Hx Hypertension: Yes - RENAL Hx Renal Failure: Yes (as per pt "his numbers are off") - ENDOCRINE/METABOLIC Hx Diabetes Mellitus Type 2: Yes - MUSCULOSKELETAL/RHEUMATOLOGICAL Hx Falls: No - PSYCHIATRIC Hx Substance Use: No - SURGICAL HISTORY Hx Surgeries: Yes Other/Comment: L great toe debridement - ANESTHESIA Hx Anesthesia: Yes Hx Anesthesia Reactions: No Hx Malignant Hyperthermia: No Meds Allergies/Adverse Reactions: Allergies Allergy/AdvReac Type Severity Reaction Status Date / Time No Known Allergies Allergy Verified 11/08/16 11:14 - Medications Medications: Current Medications Ascorbic Acid (Vitamin C 500 Mg Tab) 500 mg PO DAILY [facility] Last Admin: 11/12/16 09:47 Dose: 500 mg Aspirin (Aspirin Chewable) 81 mg PO DAILY [facility] Last Admin: 11/12/16 09:46 Dose: 81 mg Atorvastatin Calcium (Lipitor) 40 mg PO DIN [facility] Last Admin: 11/11/16 18:00 Dose: 40 mg Carvedilol (Coreg) 3.125 mg PO BID [facility] Last Admin: 11/12/16 09:47 Dose: 3.125 mg Collagenase (Santyl) 0 gm TOP DAILY [facility] Last Admin: 11/12/16 09:49 Dose: Not Given Ergocalciferol (Drisdol 50,000 Intl Units Cap) 1 cap PO Q7D [facility] Last Admin: 11/12/16 12:08 Dose: 1 cap Ferrous Sulfate (Feosol) 324 mg PO TID [facility] Last Admin: 11/12/16 15:26 Dose: 324 mg Furosemide (Lasix) 40 mg IVP Q12 [facility] Last Admin: 11/12/16 09:48 Dose: 40 mg Heparin Sodium (Porcine) (Heparin) 5,000 units SC Q12 [facility] PRN Reason: Protocol Last Admin: 11/12/16 09:46 Dose: 5,000 units Hydralazine HCl (Apresoline) 25 mg PO QID [facility] Last Admin: 11/12/16 15:29 Dose: 25 mg Ceftriaxone Sodium (Rocephin 1 Gram Ivpb) 1 gm in 100 mls @ 100 mls/hr IVPB DAILY [facility] PRN Reason: Protocol Last Admin: 11/12/16 09:49 Dose: 100 mls/hr Insulin Human Regular (Humulin R Low) 0 units SC ACHS [facility] PRN Reason: Protocol Last Admin: 11/12/16 12:03 Dose: 1 units Multi-Ingredient Cream (Hydrocerin Cream) 0 ea TOP DAILY [facility] Last Admin: 11/12/16 11:59 Dose: Not Given Pantoprazole Sodium (Protonix Ec Tab) 40 mg PO 0600 [facility] Last Admin: 11/12/16 05:25 Dose: 40 mg Spironolactone (Aldactone) 25 mg PO BID [facility] Last Admin: 11/12/16 09:48 Dose: 25 mg Tamsulosin HCl (Flomax) 0.4 mg PO DAILY [facility] Last Admin: 11/12/16 12:08 Dose: 0.4 mg Zinc Sulfate (Zinc Sulfate 220 Mg Cap) 220 mg PO DAILY [facility] Last Admin: 11/12/16 09:46 Dose: 220 mg Physical Exam - Constitutional Appears: No Acute Distress - Head Exam Head Exam: ATRAUMATIC, NORMOCEPHALIC - Eye Exam Eye Exam: EOMI, PERRL - ENT Exam ENT Exam: Mucous Membranes Moist - Respiratory Exam Respiratory Exam: absent: Clear to Auscultation Bilateral, Rales, Wheezes - Cardiovascular Exam Cardiovascular Exam: REGULAR RHYTHM, RRR, +S1, +S2 - GI/Abdominal Exam GI & Abdominal Exam: Normal Bowel Sounds, Soft. absent: Tenderness - Extremities Exam Extremities exam: Negative for: calf tenderness, pedal edema Additional comments: b/l lower ext cover with dressing placed by podiatry - Neurological Exam Neurological exam: Alert, CN II-XII Intact, Normal Gait, Oriented x3, Reflexes Normal - Psychiatric Exam Psychiatric exam: Normal Affect, Normal Mood - Skin Skin Exam: Dry, Intact, Normal Color, Warm Results - Vital Signs Recent Vital Signs: Last Vital Signs Temp 98 F 11/12/16 12:00 Pulse 79 11/12/16 15:29 Resp 20 11/12/16 12:00 BP 129/59 L 11/12/16 15:29 Pulse Ox 100 11/12/16 06:00 - Labs Result Diagrams: 11/12/16 06:30 11/12/16 06:30 Labs: Laboratory Results - last 24 hr 11/11/16 11/11/16 11/11/16 06:15 20:30 20:39 WBC RBC Hgb Hct MCV MCH MCHC RDW Plt Count MPV Gran % Lymph % (Auto) Mora % (Auto) Eos % (Auto) Baso % (Auto) Gran # Lymph # Mora # Eos # Baso # Sodium Potassium Chloride Carbon Dioxide Anion Gap BUN Creatinine Est GFR ( Amer) Est GFR (Non-Af Amer) POC Glucose (mg/dL) 198 H Random Glucose Hemoglobin A1c 7.1 H Calcium Phosphorus Magnesium Iron TIBC % Saturation Total Bilirubin AST ALT Alkaline Phosphatase Total Protein Albumin Globulin Albumin/Globulin Ratio Ur Random Creatinine 107 Blood Type Blood Type Confirm Antibody Screen Crossmatch BBK History Checked 11/12/16 11/12/16 11/12/16 06:30 06:30 07:18 WBC 10.4 RBC 2.76 L Hgb 7.7 L Hct 24.8 L MCV 89.9 MCH 27.9 MCHC 31.0 RDW 19.4 H Plt Count 144 MPV 11.0 Gran % 85.6 H Lymph % (Auto) 2.1 L Mora % (Auto) 9.8 H Eos % (Auto) 2.4 Baso % (Auto) 0.1 Gran # 8.90 H Lymph # 0.2 L Mora # 1.0 H Eos # 0.3 Baso # 0.01 Sodium 141 Potassium 4.6 Chloride 109 Carbon Dioxide 22 Anion Gap 15 BUN 101 H Creatinine 3.4 H Est GFR ( Amer) 22 Est GFR (Non-Af Amer) 18 POC Glucose (mg/dL) 159 H Random Glucose 131 H Hemoglobin A1c Calcium 8.5 Phosphorus 3.3 Magnesium 2.2 Iron TIBC % Saturation Total Bilirubin 1.5 H AST 32 ALT 24 Alkaline Phosphatase 179 H Total Protein 7.4 Albumin 3.0 Globulin 4.4 Albumin/Globulin Ratio 0.7 L Ur Random Creatinine Blood Type Blood Type Confirm Antibody Screen Crossmatch BBK History Checked 11/12/16 11/12/16 11/12/16 11:35 12:10 12:25 WBC RBC Hgb Hct MCV MCH MCHC RDW Plt Count MPV Gran % Lymph % (Auto) Mora % (Auto) Eos % (Auto) Baso % (Auto) Gran # Lymph # Mora # Eos # Baso # Sodium Potassium Chloride Carbon Dioxide Anion Gap BUN Creatinine Est GFR ( Amer) Est GFR (Non-Af Amer) POC Glucose (mg/dL) 169 H Random Glucose Hemoglobin A1c Calcium Phosphorus Magnesium Iron TIBC % Saturation Total Bilirubin AST ALT Alkaline Phosphatase Total Protein Albumin Globulin Albumin/Globulin Ratio Ur Random Creatinine Blood Type A POSITIVE Blood Type Confirm A POSITIVE Antibody Screen Negative Crossmatch See Detail BBK History Checked No verified bt 11/12/16 Unknown WBC RBC Hgb Hct MCV MCH MCHC RDW Plt Count MPV Gran % Lymph % (Auto) Mora % (Auto) Eos % (Auto) Baso % (Auto) Gran # Lymph # Mora # Eos # Baso # Sodium Potassium Chloride Carbon Dioxide Anion Gap BUN Creatinine Est GFR ( Amer) Est GFR (Non-Af Amer) POC Glucose (mg/dL) Random Glucose Hemoglobin A1c Calcium Phosphorus Magnesium Iron 16 L TIBC 245 L % Saturation 6 L Total Bilirubin AST ALT Alkaline Phosphatase Total Protein Albumin Globulin Albumin/Globulin Ratio Ur Random Creatinine Blood Type Blood Type Confirm Antibody Screen Crossmatch BBK History Checked Assessment & Plan - Assessment and Plan (Free Text) Assessment: 65 M with PMH of chronic CHF, chronic renal failure, DM, morbid obesity- BMI 40 , YASMIN on CPAP, sciatica, HTN, S/P left foot debridement (2016) [place] [facility] [place] and dyspnea, now with lower ext ulcers being treated by podiatry and with abx. Plan: - Anemia - Hb of 7.7 - recommend transfusing 1 unit PRBC - F/u Anemia work up - Work up to r/o Multiple Myeloma has been ordered - will f/u - Cont Feosol - [place] light chain 648, Kamran light chain 400; Ratio of 1.7 wnl - F/u ID recs for abx - cont Rocephin - F/u Renal recs - Cr today of 3.4 - Physical therapy Case and plan was reviewed and discussed in detail with Dr Bermudez. <Karli Bermudez - Last Filed: 11/13/16 23:01> Meds - Medications Medications: Current Medications Ascorbic Acid (Vitamin C 500 Mg Tab) 500 mg PO DAILY [facility] Last Admin: 11/13/16 11:21 Dose: 500 mg Aspirin (Aspirin Chewable) 81 mg PO DAILY [facility] Last Admin: 11/13/16 11:21 Dose: 81 mg Atorvastatin Calcium (Lipitor) 40 mg PO DIN [facility] Last Admin: 11/13/16 18:38 Dose: 40 mg Carvedilol (Coreg) 3.125 mg PO BID [facility] Last Admin: 11/13/16 18:35 Dose: 3.125 mg Collagenase (Santyl) 0 gm TOP DAILY [facility] Last Admin: 11/13/16 11:35 Dose: Not Given Ergocalciferol (Drisdol 50,000 Intl Units Cap) 1 cap PO Q7D [facility] Last Admin: 11/12/16 12:08 Dose: 1 cap Ferrous Sulfate (Feosol) 324 mg PO TID [facility] Last Admin: 11/13/16 18:35 Dose: 324 mg Furosemide (Lasix) 80 mg IVP BID [facility] Last Admin: 11/13/16 18:37 Dose: Not Given Heparin Sodium (Porcine) (Heparin) 5,000 units SC Q12 [facility] PRN Reason: Protocol Last Admin: 11/13/16 21:41 Dose: 5,000 units Hydralazine HCl (Apresoline) 25 mg PO QID [facility] Last Admin: 11/13/16 21:41 Dose: 25 mg Ceftriaxone Sodium (Rocephin 1 Gram Ivpb) 1 gm in 100 mls @ 100 mls/hr IVPB DAILY [facility] PRN Reason: Protocol Last Admin: 11/13/16 11:22 Dose: 100 mls/hr Insulin Human Regular (Humulin R Low) 0 units SC ACHS [facility] PRN Reason: Protocol Last Admin: 11/13/16 21:42 Dose: Not Given Metolazone (Zaroxolyn) 5 mg PO BID [facility] Last Admin: 11/13/16 18:38 Dose: 5 mg Multi-Ingredient Cream (Hydrocerin Cream) 0 ea TOP DAILY [facility] Last Admin: 11/13/16 11:33 Dose: Not Given Pantoprazole Sodium (Protonix Ec Tab) 40 mg PO 0600 [facility] Last Admin: 11/13/16 05:56 Dose: 40 mg Spironolactone (Aldactone) 25 mg PO BID [facility] Last Admin: 11/13/16 18:35 Dose: 25 mg Tamsulosin HCl (Flomax) 0.4 mg PO DAILY [facility] Last Admin: 11/13/16 11:21 Dose: 0.4 mg Zinc Sulfate (Zinc Sulfate 220 Mg Cap) 220 mg PO DAILY [facility] Last Admin: 11/13/16 11:21 Dose: 220 mg Results - Vital Signs Recent Vital Signs: Last Vital Signs Temp 97.9 F 11/13/16 21:22 Pulse 84 11/13/16 21:41 Resp 18 11/13/16 21:22 BP 135/95 H 11/13/16 21:41 Pulse Ox 98 11/13/16 06:00 - Labs Result Diagrams: 11/13/16 05:33 11/13/16 05:33 Labs: Laboratory Results - last 24 hr 11/09/16 11/10/16 11/12/16 13:00 06:00 12:10 WBC RBC Hgb Hct MCV MCH MCHC RDW Plt Count MPV Gran % Lymph % (Auto) Mora % (Auto) Eos % (Auto) Baso % (Auto) Gran # Lymph # Mora # Eos # Baso # Neutrophils % (Manual) Lymphocytes % (Manual) Monocytes % (Manual) Toxic Granulation Platelet Evaluation Large Platelets Polychromasia Hypochromasia Anisocytosis (manual) Sickle Cell Screen Sodium Potassium Chloride Carbon Dioxide Anion Gap BUN Creatinine Est GFR ( Amer) Est GFR (Non-Af Amer) POC Glucose (mg/dL) Random Glucose Calcium Phosphorus Magnesium Total Bilirubin AST ALT Alkaline Phosphatase Total Protein Albumin Albumin (PEP) 3.0 L Globulin Albumin/Globulin Ratio Oqzdg-7-Ozlainabc 0.4 H Lctea-9-Laxkktfxr 0.5 Vqfl-8-Bmqwbeqp 0.4 Zsyo-4-Vnfymnaq 0.5 Gamma Globulins 2.5 H Abnorm Protein Band 1 TEST NOT PERFORMED Abnorm Protein Band 2 TEST NOT PERFORMED Abnorm Protein Band 3 TEST NOT PERFORMED RBC Folate U Free [place] Light Ch TNP U Free Lambda Light Ch TNP U Free [place]/Lambda TNP Stool Occult Blood DOMINIQUE & SPEP Interp See note HIV 1&2 Ag/Ab, 4th Gen Nonreactive Blood Type A POSITIVE Antibody Screen Negative Crossmatch See Detail BBK History Checked No verified bt 11/12/16 11/12/16 11/13/16 12:30 12:40 05:33 WBC 9.7 RBC 3.08 L Hgb 8.6 L Hct 27.7 L MCV 89.9 MCH 27.9 MCHC 31.0 RDW 19.5 H Plt Count 134 MPV 10.0 Gran % 84.1 H Lymph % (Auto) 3.3 L Mora % (Auto) 9.7 H Eos % (Auto) 2.9 Baso % (Auto) 0.0 Gran # 8.18 H Lymph # 0.3 L Mora # 0.9 H Eos # 0.3 Baso # 0.00 Neutrophils % (Manual) 85 H Lymphocytes % (Manual) 6 L Monocytes % (Manual) 9 H Toxic Granulation Slight Platelet Evaluation Normal Large Platelets Present Polychromasia Slight Hypochromasia 1+ Anisocytosis (manual) 1+ Sickle Cell Screen Negative Sodium Potassium Chloride Carbon Dioxide Anion Gap BUN Creatinine Est GFR ( Amer) Est GFR (Non-Af Amer) POC Glucose (mg/dL) Random Glucose Calcium Phosphorus Magnesium Total Bilirubin AST ALT Alkaline Phosphatase Total Protein Albumin Albumin (PEP) Globulin Albumin/Globulin Ratio Cnuxj-7-Frhvulddn Smpyp-3-Zaxbipbif Gwtf-0-Pgvwewxz Yxyp-5-Yfrfvgnf Gamma Globulins Abnorm Protein Band 1 Abnorm Protein Band 2 Abnorm Protein Band 3 RBC Folate 772 U Free [place] Light Ch U Free Lambda Light Ch U Free [place]/Lambda Stool Occult Blood DOMINIQUE & SPEP Interp HIV 1&2 Ag/Ab, 4th Gen Blood Type Antibody Screen Crossmatch BBK History Checked 11/13/16 11/13/16 11/13/16 05:33 07:14 10:30 WBC RBC Hgb Hct MCV MCH MCHC RDW Plt Count MPV Gran % Lymph % (Auto) Mora % (Auto) Eos % (Auto) Baso % (Auto) Gran # Lymph # Mora # Eos # Baso # Neutrophils % (Manual) Lymphocytes % (Manual) Monocytes % (Manual) Toxic Granulation Platelet Evaluation Large Platelets Polychromasia Hypochromasia Anisocytosis (manual) Sickle Cell Screen Sodium 143 Potassium 4.9 Chloride 108 H Carbon Dioxide 23 Anion Gap 17 BUN 104 H Creatinine 3.4 H Est GFR ( Amer) 22 Est GFR (Non-Af Amer) 18 POC Glucose (mg/dL) 109 Random Glucose 115 H Calcium 8.7 Phosphorus 3.7 Magnesium 2.3 H Total Bilirubin 1.6 H AST 33 ALT 29 Alkaline Phosphatase 198 H Total Protein 7.6 Albumin 3.2 Albumin (PEP) Globulin 4.4 Albumin/Globulin Ratio 0.7 L Mdput-3-Csuazyvgb Qorba-5-Dwfjkscjr Ostg-1-Vxkgsxim Kvgq-9-Dytvaeyf Gamma Globulins Abnorm Protein Band 1 Abnorm Protein Band 2 Abnorm Protein Band 3 RBC Folate U Free [place] Light Ch U Free Lambda Light Ch U Free [place]/Lambda Stool Occult Blood Negative DOMINIQUE & SPEP Interp HIV 1&2 Ag/Ab, 4th Gen Blood Type Antibody Screen Crossmatch BBK History Checked 11/13/16 11/13/16 11/13/16 11:34 16:09 21:30 WBC RBC Hgb Hct MCV MCH MCHC RDW Plt Count MPV Gran % Lymph % (Auto) Mora % (Auto) Eos % (Auto) Baso % (Auto) Gran # Lymph # Mora # Eos # Baso # Neutrophils % (Manual) Lymphocytes % (Manual) Monocytes % (Manual) Toxic Granulation Platelet Evaluation Large Platelets Polychromasia Hypochromasia Anisocytosis (manual) Sickle Cell Screen Sodium Potassium Chloride Carbon Dioxide Anion Gap BUN Creatinine Est GFR ( Amer) Est GFR (Non-Af Amer) POC Glucose (mg/dL) 155 H 181 H 176 H Random Glucose Calcium Phosphorus Magnesium Total Bilirubin AST ALT Alkaline Phosphatase Total Protein Albumin Albumin (PEP) Globulin Albumin/Globulin Ratio Iaqmu-7-Wyvwuxuno Bjpzu-2-Avdicpgsn Oeer-7-Yfczjqft Eqeo-4-Ybbibjey Gamma Globulins Abnorm Protein Band 1 Abnorm Protein Band 2 Abnorm Protein Band 3 RBC Folate U Free [place] Light Ch U Free Lambda Light Ch U Free [place]/Lambda Stool Occult Blood DOMINIQUE & SPEP Interp HIV 1&2 Ag/Ab, 4th Gen Blood Type Antibody Screen Crossmatch BBK History Checked Attending/Attestation - Attestation I have personally seen and examined this patient.: Yes I have fully participated in the care of the patient.: Yes I have reviewed all pertinent clinical information: Yes
--- NOTE | 2016-11-12 21:38 | CP.PCM.PN ---
<Carlos Vilchis - Last Filed: 11/12/16 21:28> Subjective - Date & Time of Evaluation Date of Evaluation: 11/12/16 Time of Evaluation: 07:15 - Subjective Subjective: Pt s/e bedside. Denies SOB at this time. Further denies any CP. Patient does state that his b/l LE swelling is about the same, with some improvement in the RLE. Patient's back pain is a 6/10 right now, he is due for a dose of morphine in about 30 minutes. Pain improved since admission. Patient's left and right feet are being cared for by podiatry. Denies f/ch/cp/sob/n/v/d. ID, Heme/Onc, Cardiology, Nephrology, Podiatry following. No new complaints. Objective - Vital Signs/Intake and Output Vital Signs (last 24 hours): Temp Pulse Resp BP Pulse Ox 98.8 F 91 H 18 125/72 100 11/12/16 19:05 11/12/16 19:05 11/12/16 19:05 11/12/16 19:05 11/12/16 06:00 Intake and Output: 11/12/16 11/13/16 18:59 06:59 Intake Total 0 320 Balance 0 320 - Medications Medications: Current Medications Ascorbic Acid (Vitamin C 500 Mg Tab) 500 mg PO DAILY [facility] Last Admin: 11/12/16 09:47 Dose: 500 mg Aspirin (Aspirin Chewable) 81 mg PO DAILY [facility] Last Admin: 11/12/16 09:46 Dose: 81 mg Atorvastatin Calcium (Lipitor) 40 mg PO DIN [facility] Last Admin: 11/12/16 17:01 Dose: 40 mg Carvedilol (Coreg) 3.125 mg PO BID [facility] Last Admin: 11/12/16 17:01 Dose: 3.125 mg Collagenase (Santyl) 0 gm TOP DAILY [facility] Last Admin: 11/12/16 09:49 Dose: Not Given Ergocalciferol (Drisdol 50,000 Intl Units Cap) 1 cap PO Q7D [facility] Last Admin: 11/12/16 12:08 Dose: 1 cap Ferrous Sulfate (Feosol) 324 mg PO TID [facility] Last Admin: 11/12/16 17:45 Dose: 324 mg Furosemide (Lasix) 40 mg IVP Q12 [facility] Last Admin: 11/12/16 09:48 Dose: 40 mg Heparin Sodium (Porcine) (Heparin) 5,000 units SC Q12 [facility] PRN Reason: Protocol Last Admin: 11/12/16 09:46 Dose: 5,000 units Hydralazine HCl (Apresoline) 25 mg PO QID [facility] Last Admin: 11/12/16 17:45 Dose: 25 mg Ceftriaxone Sodium (Rocephin 1 Gram Ivpb) 1 gm in 100 mls @ 100 mls/hr IVPB DAILY [facility] PRN Reason: Protocol Last Admin: 11/12/16 09:49 Dose: 100 mls/hr Insulin Human Regular (Humulin R Low) 0 units SC ACHS [facility] PRN Reason: Protocol Last Admin: 11/12/16 17:07 Dose: 2 units Multi-Ingredient Cream (Hydrocerin Cream) 0 ea TOP DAILY [facility] Last Admin: 11/12/16 11:59 Dose: Not Given Pantoprazole Sodium (Protonix Ec Tab) 40 mg PO 0600 [facility] Last Admin: 11/12/16 05:25 Dose: 40 mg Spironolactone (Aldactone) 25 mg PO BID [facility] Last Admin: 11/12/16 17:02 Dose: 25 mg Tamsulosin HCl (Flomax) 0.4 mg PO DAILY [facility] Last Admin: 11/12/16 12:08 Dose: 0.4 mg Zinc Sulfate (Zinc Sulfate 220 Mg Cap) 220 mg PO DAILY [facility] Last Admin: 11/12/16 09:46 Dose: 220 mg - Labs Labs: 11/12/16 06:30 11/12/16 06:30 PT 15.4 Seconds (9.9-11.8) H 11/09/16 07:10 INR 1.43 (0.93-1.08) H 11/09/16 07:10 APTT 29.0 Seconds (23.7-30.8) 11/08/16 11:30 - Additional Findings Additional findings: VS as below Constitutional: a&o x 4, nad Head and Neck: neck supple, no jvd, trachea midline, carotid midline, no cervical/head mass Eyes: nai, nonicteric sclera, eom intact ENT: auditory acuity grossly intact, throat not congested, no nasal deformity Cardio: rrr, no m/r/g, no carotid bruit, nml s1, s2 Pulm: no accessory muscle use, equal nml breath sounds bilaterally, ctab MSK: +Mild TTP in the lumbar area on the left Abd: s/nt/nd, nbs x 4 q, no palpable masses Derm: no rashes, no ulcers, no lesions Extr: 2-3+ pitting edema; malodorous feet; onychomycosis. Bandages just changed by Podiatry Neuro: cn II-XII grossly intact, ue and le 5/5 muscle strength bilaterally, no los ue, le bilaterally and core Assessment and Plan - Assessment and Plan (Free Text) Assessment: 65yo male with extensive history including CHF, CKD, YASMIN, HTN, DM2 presents c/o low back pain and dyspnea Plan: 1. CHF -Patient admitted to telemetry for monitoring -EKG reviewed; revealed sinus rhythm at 69bpm, low voltage qrs, possible anterolateral infarct (age undetermined) -CXR reviewed; cardiomegaly -Troponin 0.09 indeterminate, will trend [place] [id number] -Patient started on lasix 40mg IVP q12h, aldactone 25mg PO BID, coreg 3.125mg PO BID pending pharmacy medications reconciliation -Echocardiogram LVEF - 22.4% -Strict I's and O's -Daily Weight -HOB > 45' -Cardiology consulted - Dr. Watt Hold Bumex Milrinone Aldactone Lasix 2. Low back pain -Lumbar spine x-ray: no acute disease -Pain control 3. CKD -Unknown staging/baseline; Creatinine on admission 3.3, will trend -Urine studies pending: random urine sodium, creatinine, urea -Will avoid nephrotoxic agents and renally dose medications -Nephrology consulted - Dr. Carreon No acute need for renal replacement therapy at this time. discussed with patient that due to his advanced renal insuff, CHF and fluid overload, dialysis could be anticipated in near future such as months. Pt advised to abstain from NSAIDs completely. Hypertension control with meds as ordered. Patient on RAAS lei with aldactone Agree with iron supplements: Dose of Aransep 60 mcg today (11/12/16) Will start weekly Vit D 50,000 unit x 8 doses. Also started on flomax 0.4 mg/day. recommend urology eval for elevated PVR on sonogram. Continue with diuretics. Monitor Input/Output, daily weights and renal function with basic metabolic panel Check urine analysis, spot protein/creatinine and albumin/creatinine ratio, renal/bladder sonogram. Check for 25-OH vitamin D, iPTH level Check serum protein electrophoresis with immunofixation, kappa/lambda ratio also check HIV/Hep B and Hep C serology Dose meds/antibiotics for reduced GFR. Avoid fleets enema/magnesium based laxatives. Avoid nephrotoxins/NSAIDs/ iodinated contrast (unless needed emergently) Glycemic control 4. Left toe abscess, Right foot infection - ID C/s: Continue Rocephin day 2 since the Serratia in the wound is sensitive () - Podiatry C/s: RRight - Right lower extremity cleansed with Sterile normal saline. Santyl and DSD applied to ulcerations bilateral malleolus Left - Left foot cleansed with Sterile normal saline and dressed with Santyl and DSD MRI (-)OM Left CWX :Serratia Marcescens b/l feet xray negative for osteomyelitis 5. DM type 2 -Consistent carb/heart healthy diet -Fingersticks ACHS -Humulin low dose ISS -Oral agents held 6. Anemia -Anemia workup pending including: Iron, Ferritin, TIBC, B12, Folate, Reticulocyte count -No overt signs of bleeding, will continue to follow H/H -Heme/Onc C/s: - Anemia - Hb of 7.7 - recommend transfusing 1 unit PRBC - F/u Anemia work up - Work up to r/o Multiple Myeloma has been ordered - will f/u - Cont Feosol - Intercourse light chain 648, Kamran light chain 400; Ratio of 1.7 wnl 7. Hypertension -Antihypertensives pending confirmation with patient's pharmacy; in the meantime , continue lasix and aldactone 8. YASMIN -CPAP at night; titrate to maintain O2sat > 90% 9. GI/DVT Prophylaxis -Protonix/Heparin SC Records obtained from [facility] - Dr. Glover seen there for pain. No active pain management, patient needs to get a CT and MRI outpatient. Dispo: CHF Exacerbation with very little improvement in b/l LE swelling. Patient needs diuretic therapy. B/l feet infections being treated by podiatry and ID. Patient seen and case discussed with attending, Dr. Faith <Ori Faith - Last Filed: 12/16/16 08:43> Objective - Vital Signs/Intake and Output Vital Signs (last 24 hours): Temp Pulse Resp BP Pulse Ox 98.4 F 73 20 117/67 100 11/20/16 08:25 11/20/16 13:21 11/20/16 08:25 11/20/16 13:21 11/20/16 08:25 - Labs Labs: 11/20/16 06:50 11/20/16 06:50 PT 14.7 Seconds (9.9-11.8) H 11/18/16 09:50 INR 1.36 (0.93-1.08) H 11/18/16 09:50 APTT 31.6 Seconds (23.7-30.8) H 11/18/16 09:50 Attending/Attestation - Attestation I have personally seen and examined this patient.: Yes I have fully participated in the care of the patient.: Yes I have reviewed all pertinent clinical information, including history, physical exam and plan: Yes Notes (Text): 12/16/16 08:42 Medical record note made by the resident after discussion with my ddirection after patient seen and examined by me. The chart accurately reflects my history , physical, data review and plan.
[2016-11-13] MEDS: Pantoprazole 40 mg EC Tab PO SCH (05:56)
[2016-11-13 05:59] LABS: BETA 1 GLOBULIN 0.4 g/dL (0.4-0.6); BETA 2 GLOBULIN 0.5 g/dL (0.2-0.5); GAMMA GLOBULIN 2.5 g/dL (0.8-1.7)
[2016-11-13 06:36] LABS: EOS # 0.3 (0.0-0.7); EOS % 2.9 % (1.5-5.0); GRAN # 8.18 (1.4-6.5); GRAN % 84.1 % (50.0-68.0); HEMATOCRIT 27.7 % (42.0-52.0); LYMPH # 0.3 (1.2-3.4); LYMPH % 3.3 % (22.0-35.0); MEAN CELL VOLUME 89.9 fl (80.0-105.0); MEAN CORPUSCULAR HEMOGLOBIN 27.9 pg (25.0-35.0); MONO # 0.9 (0.1-0.6); MONO % 9.7 % (1.0-6.0); PLATELET COUNT 134 10^3/uL (120.0-450.0); RED CELL DISTRIBUTION WIDTH 19.5 % (11.5-14.5); WHITE BLOOD COUNT 9.7 10^3/ul (4.5-11.0)
[2016-11-13 06:59] LABS: ALB/GLOB RATIO 0.7 (1.1-1.8); BILIRUBIN,TOTAL 1.6 mg/dL (0.2-1.3); CALCIUM 8.7 mg/dL (8.4-10.5); MAGNESIUM 2.3 mg/dL (1.7-2.2); PHOSPHOROUS 3.7 mg/dL (2.5-4.5); POTASSIUM 4.9 mmol/L (3.6-5.0); TOTAL PROTEIN 7.6 g/dL (5.8-8.3)
[2016-11-13 08:21] LABS: ANISOCYTOSIS 1+; HYPOCHROMIA 1+; LARGE PLATELETS PRESENT; NEUTROPHIL 85 % (50.0-70.0); PLATELET ESTIMATE NORMAL (NORMAL); POLYCHROMASIA SLIGHT
[2016-11-13 08:22] LABS: TOXIC GRANULATION SLIGHT
[2016-11-13] MEDS: Insulin Reg-LOW-Coverage SC SCH ×4 (08:44→21:42)
[2016-11-13] MEDS: cefTRIAXone 1 gm 1 GM/100 ML BAG IVPB SCH (11:22)
[2016-11-13] MEDS: Hydrocerin(120 gm) TOP SCH (11:33)
[2016-11-13] MEDS: Collagenase 250 Units/gm Ointment(30 gm) TOP SCH (11:35)
--- NOTE | 2016-11-13 12:34 | PN ---
DATE: 11/13/2016 CARDIOLOGY FOLLOWUP NOTE SUBJECTIVE: The patient's breathing is better. The patient is undergoing extensive wound care. PHYSICAL EXAMINATION VITAL SIGNS: Blood pressure is 144/70 and heart rate in the 80s. NECK: Negative JVD. LUNGS: No rales noted. HEART: Reveals S1 and S2. EXTREMITIES: Still bandaged with improved edema. LABORATORY DATA: Hemoglobin is 8.6. Chemistries; BUN and creatinine is 104 and 3.4. IMPRESSION 1. Acute systolic congestive heart failure which is better. 2. The patient is off inotropic therapy. 3. History of dilated cardiomyopathy. 4. Progressive renal disease. 5. Diabetes mellitus. PLAN: Given these findings, we will mobilize the patient out of bed to chair. We will decrease his Lasix dose at this time. Kamari Watt MD
--- NOTE | 2016-11-13 12:52 | CP.PCM.PN ---
<Archana Rosales - Last Filed: 11/13/16 12:50> Subjective - Date & Time of Evaluation Date of Evaluation: 11/13/16 Time of Evaluation: 12:50 - Subjective Subjective: 65 yo male patient was seen at chair side this morning concerning open ulcerations to Right bimalleolar aspect and Left dorsal aspect of 1st ray. Patient denies of any acute overnight distress. Dressing to bilateral lower extremity appears cdi. He denies of any pain to bilateral extremity. Patient denies of any N/V/F/C or SOB today Objective - Vital Signs/Intake and Output Vital Signs (last 24 hours): Temp Pulse Resp BP Pulse Ox 98 F 88 20 174/81 H 98 11/13/16 11:54 11/13/16 11:54 11/13/16 11:54 11/13/16 11:54 11/13/16 06:00 Intake and Output: 11/13/16 11/13/16 06:59 18:59 Intake Total 600 Output Total 600 Balance 0 - Medications Medications: Current Medications Ascorbic Acid (Vitamin C 500 Mg Tab) 500 mg PO DAILY [facility] Last Admin: 11/13/16 11:21 Dose: 500 mg Aspirin (Aspirin Chewable) 81 mg PO DAILY [facility] Last Admin: 11/13/16 11:21 Dose: 81 mg Atorvastatin Calcium (Lipitor) 40 mg PO DIN [facility] Last Admin: 11/12/16 17:01 Dose: 40 mg Carvedilol (Coreg) 3.125 mg PO BID [facility] Last Admin: 11/13/16 11:32 Dose: 3.125 mg Collagenase (Santyl) 0 gm TOP DAILY [facility] Last Admin: 11/13/16 11:35 Dose: Not Given Ergocalciferol (Drisdol 50,000 Intl Units Cap) 1 cap PO Q7D [facility] Last Admin: 11/12/16 12:08 Dose: 1 cap Ferrous Sulfate (Feosol) 324 mg PO TID [facility] Last Admin: 11/13/16 11:21 Dose: 324 mg Furosemide (Lasix) 40 mg IVP DAILY [facility] Last Admin: 11/13/16 11:30 Dose: 40 mg Heparin Sodium (Porcine) (Heparin) 5,000 units SC Q12 [facility] PRN Reason: Protocol Last Admin: 11/13/16 11:21 Dose: 5,000 units Hydralazine HCl (Apresoline) 25 mg PO QID [facility] Last Admin: 11/13/16 11:31 Dose: 25 mg Ceftriaxone Sodium (Rocephin 1 Gram Ivpb) 1 gm in 100 mls @ 100 mls/hr IVPB DAILY [facility] PRN Reason: Protocol Last Admin: 11/13/16 11:22 Dose: 100 mls/hr Insulin Human Regular (Humulin R Low) 0 units SC ACHS [facility] PRN Reason: Protocol Last Admin: 11/13/16 08:44 Dose: Not Given Multi-Ingredient Cream (Hydrocerin Cream) 0 ea TOP DAILY [facility] Last Admin: 11/13/16 11:33 Dose: Not Given Pantoprazole Sodium (Protonix Ec Tab) 40 mg PO 0600 [facility] Last Admin: 11/13/16 05:56 Dose: 40 mg Spironolactone (Aldactone) 25 mg PO BID [facility] Last Admin: 11/13/16 11:32 Dose: 25 mg Tamsulosin HCl (Flomax) 0.4 mg PO DAILY [facility] Last Admin: 11/13/16 11:21 Dose: 0.4 mg Zinc Sulfate (Zinc Sulfate 220 Mg Cap) 220 mg PO DAILY [facility] Last Admin: 11/13/16 11:21 Dose: 220 mg - Labs Labs: 11/13/16 05:33 11/13/16 05:33 PT 15.4 Seconds (9.9-11.8) H 11/09/16 07:10 INR 1.43 (0.93-1.08) H 11/09/16 07:10 APTT 29.0 Seconds (23.7-30.8) 11/08/16 11:30 - Constitutional Appears: Well, Non-toxic, No Acute Distress - Extremities Exam Additional comments: bilateral lower extremities exam DERM: Right - Open ulceration noted to either sides of malleolus each measuring 1cm x 1cmx 0.2cm with 100% fibrotic bases. Mild serous drainage is noted from both wounds. No purulent discharge is noted. No sign of acute infections is noted. No PTB Left - Open ulceration to dorsal aspect of Left 1st metatarsal measuring 7cm x 2cm x 0.2cm with 100% fibrotic base. No drainage is noted. No purulent discharge noted. No mal-odor is noted. No erythema around the wound is noted. No maceration noted to the wound edges. No sign of acute infections is noted. No PTB VASC: Non-palpable DP and PT noted bilaterally. MRI SUPERVISOR less than 3 seconds to all digits noted. ORTHO: Mild pain induced on palpation to ulcerations. Decreased ROM to joints distal to ankle NEURO: Gross sensation diminished to distal aspect of bilateral feet, tested with monofilament 9 points plantar feet - Neurological Exam Neurological Exam: Alert, Awake, Oriented x3 - Psychiatric Exam Psychiatric exam: Normal Affect, Normal Mood - Skin Skin Exam: Normal Color, Warm Assessment and Plan - Assessment and Plan (Free Text) Assessment: 65 yo male patient presents with open ulcerations to bilateral lower extremities Perez Stage ii Plan: Patient was seen, evaluated Labs and vitals reviewed Right - Right lower extremity cleansed with Sterile normal saline. Santyl and DSD applied to ulcerations bilateral malleolus Left - Left foot cleansed with Sterile normal saline and dressed with Santyl and DSD MRI (-)OM Left WCX :Serratia Marcescens Podiatry will follow in-house <Kurtis Amos - Last Filed: 11/13/16 16:31> Objective - Vital Signs/Intake and Output Vital Signs (last 24 hours): Temp Pulse Resp BP Pulse Ox 98 F 85 20 156/89 H 98 11/13/16 11:54 11/13/16 14:04 11/13/16 11:54 11/13/16 14:04 11/13/16 06:00 Intake and Output: 11/13/16 11/13/16 06:59 18:59 Intake Total 600 Output Total 600 Balance 0 - Medications Medications: Current Medications Ascorbic Acid (Vitamin C 500 Mg Tab) 500 mg PO DAILY [facility] Last Admin: 11/13/16 11:21 Dose: 500 mg Aspirin (Aspirin Chewable) 81 mg PO DAILY [facility] Last Admin: 11/13/16 11:21 Dose: 81 mg Atorvastatin Calcium (Lipitor) 40 mg PO DIN [facility] Last Admin: 11/12/16 17:01 Dose: 40 mg Carvedilol (Coreg) 3.125 mg PO BID [facility] Last Admin: 11/13/16 11:32 Dose: 3.125 mg Collagenase (Santyl) 0 gm TOP DAILY [facility] Last Admin: 11/13/16 11:35 Dose: Not Given Ergocalciferol (Drisdol 50,000 Intl Units Cap) 1 cap PO Q7D [facility] Last Admin: 11/12/16 12:08 Dose: 1 cap Ferrous Sulfate (Feosol) 324 mg PO TID [facility] Last Admin: 11/13/16 14:04 Dose: 324 mg Furosemide (Lasix) 80 mg IVP BID [facility] Heparin Sodium (Porcine) (Heparin) 5,000 units SC Q12 [facility] PRN Reason: Protocol Last Admin: 11/13/16 11:21 Dose: 5,000 units Hydralazine HCl (Apresoline) 25 mg PO QID [facility] Last Admin: 11/13/16 14:04 Dose: 25 mg Ceftriaxone Sodium (Rocephin 1 Gram Ivpb) 1 gm in 100 mls @ 100 mls/hr IVPB DAILY [facility] PRN Reason: Protocol Last Admin: 11/13/16 11:22 Dose: 100 mls/hr Insulin Human Regular (Humulin R Low) 0 units SC ACHS [facility] PRN Reason: Protocol Last Admin: 11/13/16 14:00 Dose: 1 units Metolazone (Zaroxolyn) 5 mg PO BID [facility] Last Admin: 11/13/16 15:51 Dose: 5 mg Multi-Ingredient Cream (Hydrocerin Cream) 0 ea TOP DAILY [facility] Last Admin: 11/13/16 11:33 Dose: Not Given Pantoprazole Sodium (Protonix Ec Tab) 40 mg PO 0600 [facility] Last Admin: 11/13/16 05:56 Dose: 40 mg Spironolactone (Aldactone) 25 mg PO BID [facility] Last Admin: 11/13/16 11:32 Dose: 25 mg Tamsulosin HCl (Flomax) 0.4 mg PO DAILY [facility] Last Admin: 11/13/16 11:21 Dose: 0.4 mg Zinc Sulfate (Zinc Sulfate 220 Mg Cap) 220 mg PO DAILY [facility] Last Admin: 11/13/16 11:21 Dose: 220 mg - Labs Labs: 11/13/16 05:33 11/13/16 05:33 PT 15.4 Seconds (9.9-11.8) H 11/09/16 07:10 INR 1.43 (0.93-1.08) H 11/09/16 07:10 APTT 29.0 Seconds (23.7-30.8) 11/08/16 11:30 Attending/Attestation - Attestation I have personally seen and examined this patient.: Yes I have fully participated in the care of the patient.: Yes I have reviewed all pertinent clinical information, including history, physical exam and plan: Yes
--- NOTE | 2016-11-13 13:17 | CP.PCM.PN ---
Subjective - Date & Time of Evaluation Date of Evaluation: 11/13/16 Time of Evaluation: 13:12 - Subjective Subjective: Follow up Nephrology Consultation: Assessment: Stable Acute Kidney Injury (N17.9) possibly due to Chronic NSAIDs use. also contribution by his severe CHF (cardio-renal) Fluid overload, Anasarca with CHF exacerbation Diabetic chronic Kidney Disease (E11.22) Hypertensive Chronic Kidney Disease (I12.9) Chronic Kidney Disease (N18.9) Stage with 200 proteinuria (R80.9) possibly due to his long standing hx of HTN, atherosclerotic vasc disease Anemia (D64.9), HTN (I12.9), DM, CHF, Morbid obesity, YASMIN on CPAP, back pain, Hypernatremia, heel ulcers, ventral hernia, ascites Vit D def and secondary hyperparathyroidism Plan No acute need for renal replacement therapy at this time. Patient aware that due to his advanced renal insuff, CHF and fluid overload, dialysis could be anticipated in near future. Pt advised to abstain from NSAIDs completely. Hypertension control with meds as ordered. Patient on RAAS lei with aldactone Agree with oral iron supplements. s/p Aransep 60 mcg (11/12). PRBC as needed. continue with weekly Vit D 50,000 unit x 8 doses. also started on flomax 0.4 mg/ day. recommend urology eval for elevated PVR on sonogram. ? mortensen need considering his persistent severe anasarca: recommend to increase IV diuretic dose/frequency and augment its potency with oral metolazone. Monitor Input/Output, daily weights and renal function with basic metabolic panel wound care. Dose meds/antibiotics for reduced GFR. Avoid fleets enema/magnesium based laxatives. Avoid nephrotoxins/NSAIDs/ iodinated contrast (unless needed emergently) Glycemic control Further work up/management as per primary team Thanks for allowing me to participate in care of your patient. Will follow patient with you. 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 He has been taking NSAIDs as Advil (3 tab) and alleve (2 tab) per day on most days for last few weeks to control his pain. He denies any urinary complaints such as heistancy or intermittency or nocturia he does feel swollen, like a balloon. Denies chest pain, palpitation, shortness of breath, c/o legs and arms swelling says able to make urine despite penile swelling. ROS: Constitutional Symptoms: Denies fever. No chills. had gained weight Eyes: denies change in vision, denies watery eyes, denies double vision Ears/Nose/Mouth/Throat: Denies Abnormal Taste. No Bad breath no Bad Taste. Cardiovascular: No chest pain. There is no shortness of breath. No palpitations. Pulmonary: No shortness of breath no cough now. Gastrointestinal: denies abdominal pain No nausea. No vomiting. Denies change in bowel habits. Denies Bleeding Genitourinary:able to make urine but not much Neurological: Denies headaches. No dizziness. Denies loss of balance. Denies weakness, denies tingling/numbness Dermatological: No Rash or Bruising but had heel/feet ulcers. Psychiatric: Denies Anxiety. No depression. Denies hallucinations. Rheumatological: c/o low back pain. Denies Joint swelling Endocrine: Denies tiredness/Fatigue denies Heat/Cold Intolerance. All other negative Physical Examination: General Appearance: Comfortable, in no acute respiratory distress, co-operative . Obese Vitals reviewed and noted as below Head; Atraumatic, normocephalic ENT: no ulcers no thrush. Tongue is midline. Oropharynx: no rash or ulcers. EYES: Pupils are equal, round and reactive to light accommodation. Eye muscles and extraocular movement intact. Sclera is anicteric. Neck; supple no lymphadenopathy, no thyromegaly or bruit Lungs: Normal respiratory rate/effort. Breath sounds bilateral equal and clear except somewhat decreased at bases Heart: Normal rate. s1s2 normal. No rub or gallop. Extremities: 3+ edema with chronic venous stasis changes in legs and skin very thickened to touch. No varicose veins. both heels dressed. has thigh edema/ Anasarca Neurological: Patient is alert, awake and oriented to person, place and time. No focal deficit. Strength bilateral appropriate and equal Skin: Warm and dry. Normal turgor. No rash. Palpitation: Normal elasticity for age Abdomen: Abdomen is distended. has midline ventral hernia. has abdomen wall edema. Bowel sounds +. There is no abdominal tenderness, no guarding/rigidity. Unable to examine/appreciate organomegaly due to obesity/edema and distension of abdomen Psych: normal insight and normal affect/mood MSK: no joint tenderness or swelling. Digits and nails normal, no deformity : kidney or bladder not palpable but exam very limited. has scrotal/penile edema Labs/imaging/EKG reviewed. Past medical history, past surgical history, family history, social history, allergy reviewed and noted as below Family hx: no hx of CKD. Rest non-contributory Work up: UA: no blood or prot Phos 3.5 Mg 2.5 Albumin 3 TSAT 10% Ferritin 101 CXr: pulm congestion Echo: EF 22% Cut Off/lambda ratio Normal Renal and bladder sono: PVR 438 ml but also had ascites hence PVR can be false + elevated on sonogram. Vit D 13 PTH 120 Objective - Vital Signs/Intake and Output Vital Signs (last 24 hours): Temp Pulse Resp BP Pulse Ox 98 F 88 20 174/81 H 98 11/13/16 11:54 11/13/16 11:54 11/13/16 11:54 11/13/16 11:54 11/13/16 06:00 Intake and Output: 11/13/16 11/13/16 06:59 18:59 Intake Total 600 Output Total 600 Balance 0 - Medications Medications: Current Medications Ascorbic Acid (Vitamin C 500 Mg Tab) 500 mg PO DAILY [facility] Last Admin: 11/13/16 11:21 Dose: 500 mg Aspirin (Aspirin Chewable) 81 mg PO DAILY [facility] Last Admin: 11/13/16 11:21 Dose: 81 mg Atorvastatin Calcium (Lipitor) 40 mg PO DIN [facility] Last Admin: 11/12/16 17:01 Dose: 40 mg Carvedilol (Coreg) 3.125 mg PO BID [facility] Last Admin: 11/13/16 11:32 Dose: 3.125 mg Collagenase (Santyl) 0 gm TOP DAILY [facility] Last Admin: 11/13/16 11:35 Dose: Not Given Ergocalciferol (Drisdol 50,000 Intl Units Cap) 1 cap PO Q7D [facility] Last Admin: 11/12/16 12:08 Dose: 1 cap Ferrous Sulfate (Feosol) 324 mg PO TID [facility] Last Admin: 11/13/16 11:21 Dose: 324 mg Furosemide (Lasix) 40 mg IVP DAILY [facility] Last Admin: 11/13/16 11:30 Dose: 40 mg Heparin Sodium (Porcine) (Heparin) 5,000 units SC Q12 [facility] PRN Reason: Protocol Last Admin: 11/13/16 11:21 Dose: 5,000 units Hydralazine HCl (Apresoline) 25 mg PO QID [facility] Last Admin: 11/13/16 11:31 Dose: 25 mg Ceftriaxone Sodium (Rocephin 1 Gram Ivpb) 1 gm in 100 mls @ 100 mls/hr IVPB DAILY [facility] PRN Reason: Protocol Last Admin: 11/13/16 11:22 Dose: 100 mls/hr Insulin Human Regular (Humulin R Low) 0 units SC ACHS [facility] PRN Reason: Protocol Last Admin: 11/13/16 08:44 Dose: Not Given Multi-Ingredient Cream (Hydrocerin Cream) 0 ea TOP DAILY [facility] Last Admin: 11/13/16 11:33 Dose: Not Given Pantoprazole Sodium (Protonix Ec Tab) 40 mg PO 0600 [facility] Last Admin: 11/13/16 05:56 Dose: 40 mg Spironolactone (Aldactone) 25 mg PO BID [facility] Last Admin: 11/13/16 11:32 Dose: 25 mg Tamsulosin HCl (Flomax) 0.4 mg PO DAILY [facility] Last Admin: 11/13/16 11:21 Dose: 0.4 mg Zinc Sulfate (Zinc Sulfate 220 Mg Cap) 220 mg PO DAILY [facility] Last Admin: 11/13/16 11:21 Dose: 220 mg - Labs Labs: 11/13/16 05:33 11/13/16 05:33 PT 15.4 Seconds (9.9-11.8) H 11/09/16 07:10 INR 1.43 (0.93-1.08) H 11/09/16 07:10 APTT 29.0 Seconds (23.7-30.8) 11/08/16 11:30
[2016-11-13] MEDS: Prostat 15 g packet GT SCH ×2 (14:00→18:38)
--- NOTE | 2016-11-13 14:43 | PN ---
DATE: 11/13/2016 SUBJECTIVE: The patient is in bed, in no acute distress, nontoxic. PHYSICAL EXAMINATION: VITAL SIGNS: Temperature of 98, blood pressure is 140/70, respiratory rate of 20, and heart rate of 90. HEENT: Unremarkable. NECK: Supple. LUNGS: Decreased breath sounds. HEART: Normal S1 and S2. ABDOMEN: Soft and nontender. LABORATORY DATA: Reveals white count of 9.7, hemoglobin of 8, platelets of 134. BUN of 104 and creatinine of 3.4. Urinalysis is noted. Serology is noted. Microbiology is reviewed. Had a toe culture with Serratia marcescens. Sensitivity is noted. It is sensitive to ceftriaxone, intermediate to Cipro. Review of orders reveals the patient to be on Ceftriaxone and x-ray of the foot from yesterday is reviewed. ASSESSMENT AND PLAN: This is a 65-year-old male with Serratia foot infection, soft tissue and skin infection with chronic congestive heart failure, chronic renal failure, diabetes mellitus, morbid obesity with BMI of 40, right foot infection with Serratia, on day #3 of Rocephin. Review of orders reveals the patient is currently on ceftriaxone. Dr. Ott consultation is reviewed and Dr. Carlos López note is also reviewed. The patient also had another x-ray of the foot. We discussed with Podiatry. Charlie Taylor MD
--- NOTE | 2016-11-13 15:15 | CP.PCM.PN ---
<Tru Cruz - Last Filed: 11/13/16 15:05> Subjective - Date & Time of Evaluation Date of Evaluation: 11/13/16 Time of Evaluation: 07:20 - Subjective Subjective: Heme/onc note for Dr Bermudez: Pt seen and examined at bedside. No acute events overnight. C/o b/l lower foot discomfort. NO toher complaints. Denies any f/c, n/v/d, palpitations, sob, cp, urinary or bm changes. Objective - Vital Signs/Intake and Output Vital Signs (last 24 hours): Temp Pulse Resp BP Pulse Ox 98 F 85 20 156/89 H 98 11/13/16 11:54 11/13/16 14:04 11/13/16 11:54 11/13/16 14:04 11/13/16 06:00 Intake and Output: 11/13/16 11/13/16 06:59 18:59 Intake Total 600 Output Total 600 Balance 0 - Medications Medications: Current Medications Ascorbic Acid (Vitamin C 500 Mg Tab) 500 mg PO DAILY [facility] Last Admin: 11/13/16 11:21 Dose: 500 mg Aspirin (Aspirin Chewable) 81 mg PO DAILY [facility] Last Admin: 11/13/16 11:21 Dose: 81 mg Atorvastatin Calcium (Lipitor) 40 mg PO DIN [facility] Last Admin: 11/12/16 17:01 Dose: 40 mg Carvedilol (Coreg) 3.125 mg PO BID [facility] Last Admin: 11/13/16 11:32 Dose: 3.125 mg Collagenase (Santyl) 0 gm TOP DAILY [facility] Last Admin: 11/13/16 11:35 Dose: Not Given Ergocalciferol (Drisdol 50,000 Intl Units Cap) 1 cap PO Q7D [facility] Last Admin: 11/12/16 12:08 Dose: 1 cap Ferrous Sulfate (Feosol) 324 mg PO TID [facility] Last Admin: 11/13/16 14:04 Dose: 324 mg Furosemide (Lasix) 40 mg IVP DAILY [facility] Last Admin: 11/13/16 11:30 Dose: 40 mg Heparin Sodium (Porcine) (Heparin) 5,000 units SC Q12 [facility] PRN Reason: Protocol Last Admin: 11/13/16 11:21 Dose: 5,000 units Hydralazine HCl (Apresoline) 25 mg PO QID [facility] Last Admin: 11/13/16 14:04 Dose: 25 mg Ceftriaxone Sodium (Rocephin 1 Gram Ivpb) 1 gm in 100 mls @ 100 mls/hr IVPB DAILY [facility] PRN Reason: Protocol Last Admin: 11/13/16 11:22 Dose: 100 mls/hr Insulin Human Regular (Humulin R Low) 0 units SC ACHS [facility] PRN Reason: Protocol Last Admin: 11/13/16 14:00 Dose: 1 units Multi-Ingredient Cream (Hydrocerin Cream) 0 ea TOP DAILY [facility] Last Admin: 11/13/16 11:33 Dose: Not Given Pantoprazole Sodium (Protonix Ec Tab) 40 mg PO 0600 [facility] Last Admin: 11/13/16 05:56 Dose: 40 mg Spironolactone (Aldactone) 25 mg PO BID [facility] Last Admin: 11/13/16 11:32 Dose: 25 mg Tamsulosin HCl (Flomax) 0.4 mg PO DAILY [facility] Last Admin: 11/13/16 11:21 Dose: 0.4 mg Zinc Sulfate (Zinc Sulfate 220 Mg Cap) 220 mg PO DAILY [facility] Last Admin: 11/13/16 11:21 Dose: 220 mg - Labs Labs: 11/13/16 05:33 11/13/16 05:33 PT 15.4 Seconds (9.9-11.8) H 11/09/16 07:10 INR 1.43 (0.93-1.08) H 11/09/16 07:10 APTT 29.0 Seconds (23.7-30.8) 11/08/16 11:30 - Constitutional Appears: No Acute Distress - Head Exam Head Exam: ATRAUMATIC - Eye Exam Eye Exam: EOMI, PERRL - ENT Exam ENT Exam: Mucous Membranes Moist - Respiratory Exam Respiratory Exam: Clear to Ausculation Bilateral. absent: Rales, Rhonchi, Wheezes - Cardiovascular Exam Cardiovascular Exam: REGULAR RHYTHM, RRR, +S1, +S2 - GI/Abdominal Exam GI & Abdominal Exam: Soft. absent: Distended, Tenderness - Extremities Exam Extremities Exam: absent: Calf Tenderness, Pedal Edema Additional comments: LE splint placed by podiatry - Neurological Exam Neurological Exam: Alert, Awake, Oriented x3 - Psychiatric Exam Psychiatric exam: Normal Affect, Normal Mood - Skin Skin Exam: Dry, Intact, Warm Assessment and Plan - Assessment and Plan (Free Text) Assessment: 65 M with PMH of chronic CHF, chronic renal failure, DM, morbid obesity- BMI 40 , YASMIN on CPAP, sciatica, HTN, S/P left foot debridement (2015) was initially admitted in [facility] for low back pain and dyspnea, now with lower ext ulcers being treated by podiatry and with abx. Plan: - Anemia - Hb of 8.6 - s/p 1 unit prbc - recommend transfusing 1 more unit PRBC - F/u Anemia work up - Iron low 16- Venofer 200mg x 1 - Work up to r/o Multiple Myeloma has been ordered - total lilli/prince is elevated but ratio is normal unlikely MM - F/u DOMINIQUE SPEP and serum and urine immunofixation - Cont Feosol - F/u ID recs for abx - cont Rocephin - F/u Renal recs - Cr today of 3.4 - HIV and Hepatitis normal - Physical therapy Case and plan was reviewed and discussed in detail with Dr Bermudez. <Karli Bermudez P - Last Filed: 11/13/16 22:51> Objective - Vital Signs/Intake and Output Vital Signs (last 24 hours): Temp Pulse Resp BP Pulse Ox 97.9 F 84 18 135/95 H 98 11/13/16 21:22 11/13/16 21:41 11/13/16 21:22 11/13/16 21:41 11/13/16 06:00 Intake and Output: 11/13/16 11/14/16 18:59 06:59 Intake Total 0 Balance 0 - Medications Medications: Current Medications Ascorbic Acid (Vitamin C 500 Mg Tab) 500 mg PO DAILY [facility] Last Admin: 11/13/16 11:21 Dose: 500 mg Aspirin (Aspirin Chewable) 81 mg PO DAILY [facility] Last Admin: 11/13/16 11:21 Dose: 81 mg Atorvastatin Calcium (Lipitor) 40 mg PO DIN [facility] Last Admin: 11/13/16 18:38 Dose: 40 mg Carvedilol (Coreg) 3.125 mg PO BID [facility] Last Admin: 11/13/16 18:35 Dose: 3.125 mg Collagenase (Santyl) 0 gm TOP DAILY [facility] Last Admin: 11/13/16 11:35 Dose: Not Given Ergocalciferol (Drisdol 50,000 Intl Units Cap) 1 cap PO Q7D [facility] Last Admin: 11/12/16 12:08 Dose: 1 cap Ferrous Sulfate (Feosol) 324 mg PO TID [facility] Last Admin: 11/13/16 18:35 Dose: 324 mg Furosemide (Lasix) 80 mg IVP BID [facility] Last Admin: 11/13/16 18:37 Dose: Not Given Heparin Sodium (Porcine) (Heparin) 5,000 units SC Q12 [facility] PRN Reason: Protocol Last Admin: 11/13/16 21:41 Dose: 5,000 units Hydralazine HCl (Apresoline) 25 mg PO QID [facility] Last Admin: 11/13/16 21:41 Dose: 25 mg Ceftriaxone Sodium (Rocephin 1 Gram Ivpb) 1 gm in 100 mls @ 100 mls/hr IVPB DAILY [facility] PRN Reason: Protocol Last Admin: 11/13/16 11:22 Dose: 100 mls/hr Insulin Human Regular (Humulin R Low) 0 units SC ACHS [facility] PRN Reason: Protocol Last Admin: 11/13/16 21:42 Dose: Not Given Metolazone (Zaroxolyn) 5 mg PO BID [facility] Last Admin: 11/13/16 18:38 Dose: 5 mg Multi-Ingredient Cream (Hydrocerin Cream) 0 ea TOP DAILY [facility] Last Admin: 11/13/16 11:33 Dose: Not Given Pantoprazole Sodium (Protonix Ec Tab) 40 mg PO 0600 [facility] Last Admin: 11/13/16 05:56 Dose: 40 mg Spironolactone (Aldactone) 25 mg PO BID [facility] Last Admin: 11/13/16 18:35 Dose: 25 mg Tamsulosin HCl (Flomax) 0.4 mg PO DAILY [facility] Last Admin: 11/13/16 11:21 Dose: 0.4 mg Zinc Sulfate (Zinc Sulfate 220 Mg Cap) 220 mg PO DAILY [facility] Last Admin: 11/13/16 11:21 Dose: 220 mg - Labs Labs: 11/13/16 05:33 11/13/16 05:33 PT 15.4 Seconds (9.9-11.8) H 11/09/16 07:10 INR 1.43 (0.93-1.08) H 11/09/16 07:10 APTT 29.0 Seconds (23.7-30.8) 08/20/17 11:30 Attending/Attestation - Attestation I have personally seen and examined this patient.: Yes I have fully participated in the care of the patient.: Yes I have reviewed all pertinent clinical information, including history, physical exam and plan: Yes
--- NOTE | 2016-11-13 15:39 | CP.PCM.PN ---
<MameCarlos - Last Filed: 11/13/16 15:36> Subjective - Date & Time of Evaluation Date of Evaluation: 11/13/16 Time of Evaluation: 07:00 - Subjective Subjective: Pt s/e bedside. Pt still feels like his legs are swollen bilaterally and is also complaining of b/l UE swelling. Patient denies sob. Pt states that his back pain is better since admission but still present. Pt still complains of infection in b/l feet. Pt denies cp/f/ch/n/v/d. Podiatry, ID, Cardio, Nephro, Heme/onc following the case. Objective - Vital Signs/Intake and Output Vital Signs (last 24 hours): Temp Pulse Resp BP Pulse Ox 98 F 85 20 156/89 H 98 11/13/16 11:54 11/13/16 14:04 11/13/16 11:54 11/13/16 14:04 11/13/16 06:00 Intake and Output: 11/13/16 11/13/16 06:59 18:59 Intake Total 600 Output Total 600 Balance 0 - Medications Medications: Current Medications Ascorbic Acid (Vitamin C 500 Mg Tab) 500 mg PO DAILY [facility] Last Admin: 11/13/16 11:21 Dose: 500 mg Aspirin (Aspirin Chewable) 81 mg PO DAILY [facility] Last Admin: 11/13/16 11:21 Dose: 81 mg Atorvastatin Calcium (Lipitor) 40 mg PO DIN [facility] Last Admin: 11/12/16 17:01 Dose: 40 mg Carvedilol (Coreg) 3.125 mg PO BID [facility] Last Admin: 11/13/16 11:32 Dose: 3.125 mg Collagenase (Santyl) 0 gm TOP DAILY [facility] Last Admin: 11/13/16 11:35 Dose: Not Given Ergocalciferol (Drisdol 50,000 Intl Units Cap) 1 cap PO Q7D [facility] Last Admin: 11/12/16 12:08 Dose: 1 cap Ferrous Sulfate (Feosol) 324 mg PO TID [facility] Last Admin: 11/13/16 14:04 Dose: 324 mg Furosemide (Lasix) 80 mg IVP BID [facility] Heparin Sodium (Porcine) (Heparin) 5,000 units SC Q12 [facility] PRN Reason: Protocol Last Admin: 11/13/16 11:21 Dose: 5,000 units Hydralazine HCl (Apresoline) 25 mg PO QID [facility] Last Admin: 11/13/16 14:04 Dose: 25 mg Ceftriaxone Sodium (Rocephin 1 Gram Ivpb) 1 gm in 100 mls @ 100 mls/hr IVPB DAILY [facility] PRN Reason: Protocol Last Admin: 11/13/16 11:22 Dose: 100 mls/hr Iron Sucrose 200 mg/ Sodium (Chloride) 110 mls @ 110 mls/hr IVPB ONCE ONE Stop: 11/13/16 16:09 Insulin Human Regular (Humulin R Low) 0 units SC ACHS [facility] PRN Reason: Protocol Last Admin: 11/13/16 14:00 Dose: 1 units Metolazone (Zaroxolyn) 5 mg PO BID [facility] Multi-Ingredient Cream (Hydrocerin Cream) 0 ea TOP DAILY [facility] Last Admin: 11/13/16 11:33 Dose: Not Given Pantoprazole Sodium (Protonix Ec Tab) 40 mg PO 0600 [facility] Last Admin: 11/13/16 05:56 Dose: 40 mg Spironolactone (Aldactone) 25 mg PO BID [facility] Last Admin: 11/13/16 11:32 Dose: 25 mg Tamsulosin HCl (Flomax) 0.4 mg PO DAILY [facility] Last Admin: 11/13/16 11:21 Dose: 0.4 mg Zinc Sulfate (Zinc Sulfate 220 Mg Cap) 220 mg PO DAILY [facility] Last Admin: 11/13/16 11:21 Dose: 220 mg - Labs Labs: 11/13/16 05:33 11/13/16 05:33 PT 15.4 Seconds (9.9-11.8) H 11/09/16 07:10 INR 1.43 (0.93-1.08) H 11/09/16 07:10 APTT 29.0 Seconds (23.7-30.8) 11/08/16 11:30 - Additional Findings Additional findings: VS as below Constitutional: a&o x 4, nad Head and Neck: neck supple, no jvd, trachea midline, carotid midline, no cervical/head mass Eyes: nai, nonicteric sclera, eom intact ENT: auditory acuity grossly intact, throat not congested, no nasal deformity Cardio: rrr, no m/r/g, no carotid bruit, nml s1, s2 Pulm: no accessory muscle use, equal nml breath sounds bilaterally, ctab MSK: +Mild TTP in the lumbar area on the left Abd: s/nt/nd, nbs x 4 q, no palpable masses Derm: no rashes, no ulcers, no lesions Extr: 2-3+ pitting edema; malodorous feet; onychomycosis. Bandages just changed by Podiatry Neuro: cn II-XII grossly intact, ue and le 5/5 muscle strength bilaterally, no los ue, le bilaterally and core Assessment and Plan - Assessment and Plan (Free Text) Assessment: 65yo male with extensive history including CHF, CKD, YASMIN, HTN, DM2 presents c/o low back pain and dyspnea Plan: 1. CHF -Patient admitted to telemetry for monitoring -EKG reviewed; revealed sinus rhythm at 69bpm, low voltage qrs, possible anterolateral infarct (age undetermined) -CXR reviewed; cardiomegaly -Troponin 0.09 indeterminate, will trend [place] [id number] -Patient started on lasix 40mg IVP q12h, aldactone 25mg PO BID, coreg 3.125mg PO BID pending pharmacy medications reconciliation -Echocardiogram LVEF - 22.4% -Strict I's and O's -Daily Weight -HOB > 45' -Cardiology consulted - Dr. Watt Hold Bumex Milrinone Aldactone Lasix 2. Low back pain -Lumbar spine x-ray: no acute disease -Pain control 3. CKD -Unknown staging/baseline; Creatinine on admission 3.3, will trend -Urine studies pending: random urine sodium, creatinine, urea -Will avoid nephrotoxic agents and renally dose medications -Nephrology consulted - Dr. Carreon No acute need for renal replacement therapy at this time. discussed with patient that due to his advanced renal insuff, CHF and fluid overload, dialysis could be anticipated in near future such as months. Pt advised to abstain from NSAIDs completely. Hypertension control with meds as ordered. Patient on RAAS lei with aldactone Agree with iron supplements: Dose of Aransep 60 mcg on 11/12/16 Will start weekly Vit D 50,000 unit x 8 doses. Also started on flomax 0.4 mg/day. recommend urology eval for elevated PVR on sonogram. Diuretics - Lasix 80 mg iv bid; Metolazone 5 mg po bid. Changed 11/13/16 Monitor Input/Output, daily weights and renal function with basic metabolic panel Check urine analysis, spot protein/creatinine and albumin/creatinine ratio, renal/bladder sonogram. Check for 25-OH vitamin D, iPTH level Check serum protein electrophoresis with immunofixation, kappa/lambda ratio also check HIV/Hep B and Hep C serology Dose meds/antibiotics for reduced GFR. Avoid fleets enema/magnesium based laxatives. Avoid nephrotoxins/NSAIDs/ iodinated contrast (unless needed emergently) Glycemic control 4. Left toe abscess, Right foot infection - ID C/s: Continue Rocephin day 2 since the Serratia in the wound is sensitive () - Podiatry C/s: Right - Right lower extremity cleansed with Sterile normal saline. Santyl and DSD applied to ulcerations bilateral malleolus Left - Left foot cleansed with Sterile normal saline and dressed with Santyl and DSD MRI (-)OM Left CWX :Serratia Marcescens b/l feet xray negative for osteomyelitis 5. DM type 2 -Consistent carb/heart healthy diet -Fingersticks ACHS -Humulin low dose ISS -Oral agents held 6. Anemia -Anemia workup pending including: Iron, Ferritin, TIBC, B12, Folate, Reticulocyte count -No overt signs of bleeding, will continue to follow H/H -Heme/Onc C/s: - Anemia - Hb of 8.6 - s/p 1 unit prbc - recommend transfusing 1 more unit PRBC, 11/13 - F/u Anemia work up - Iron low 16- Venofer 200mg x 1 - Work up to r/o Multiple Myeloma has been ordered - total lilli/prince is elevated but ratio is normal unlikely MM - F/u DOMINIQUE SPEP and serum and urine immunofixation - Cont Feosol - F/u ID recs for abx - cont Rocephin - F/u Renal recs - Cr today of 3.4 - HIV and Hepatitis normal - Physical therapy 7. Hypertension -Antihypertensives pending confirmation with patient's pharmacy; in the meantime , continue lasix and aldactone 8. YASMIN -CPAP at night; titrate to maintain O2sat > 90% 9. GI/DVT Prophylaxis -Protonix/Heparin SC Records obtained from [facility] - Dr. Gangemi seen there for pain. No active pain management, patient needs to get a CT and MRI outpatient. Dispo: CHF Exacerbation with very little improvement in b/l LE swelling. Patient needs diuretic therapy. B/l feet infections being treated by podiatry and ID. Consider keeping him in house 11/14 and 11/15 for aggressive diuresis as above. Patient seen and case discussed with attending, Dr. Ley <Chris Ley - Last Filed: 12/31/16 19:07> Objective - Vital Signs/Intake and Output Vital Signs (last 24 hours): Temp Pulse Resp BP Pulse Ox 98.4 F 73 20 117/67 100 11/20/16 08:25 11/20/16 13:21 11/20/16 08:25 11/20/16 13:21 11/20/16 08:25 - Labs Labs: 11/20/16 06:50 11/20/16 06:50 PT 14.7 Seconds (9.9-11.8) H 11/18/16 09:50 INR 1.36 (0.93-1.08) H 11/18/16 09:50 APTT 31.6 Seconds (23.7-30.8) H 11/18/16 09:50 Attending/Attestation - Attestation I have personally seen and examined this patient.: Yes I have fully participated in the care of the patient.: Yes I have reviewed all pertinent clinical information, including history, physical exam and plan: Yes Notes (Text): 12/31/16 19:07 Medical record note made by the resident after discussion with my direction and input after the patient was personally seen and examined by me. I have reviewed the chart and agree that the record accurately reflects by personal performance of the history, physical exam, data review, and medical decision-making, in the course for the patient. I have also personally directed the plan of care.
[2016-11-13] MEDS: metOLazone 5 MG TAB PO SCH ×2 (15:51→18:38)
--- NOTE | 2016-11-14 04:07 | CON ---
DATE: 11/13/2016 GENITOURINARY CONSULTATION CHIEF COMPLAINT: Urinary high postvoid residual. HISTORY OF PRESENT ILLNESS: The patient is a 65-year-old male with a significant cardiac history. He was admitted with shortness of breath and anasarca. He has history of diabetes, hypertension, hypercholesterolemia, and congestive heart failure. He has a creatinine of 3.4 with a BUN of 100. The patient felt like he was not emptying his bladder. Bladder ultrasound was done which showed a significant residual of 438 mL. A renal ultrasound was also done which did not show hydronephrosis. The patient says he voids but feels that there is incomplete emptying. He saw a urologist number of years ago. He is not on any medicines for BPH. Currently, he is on tamsulosin. I had him void, he voided 275 mL. A bladder scan was done in the sitting position, since the patient cannot walk because of foot ulcerations which showed over 790 mL. I then placed a Long catheter and obtained 325 mL which is the accurate postvoid residual. I left the Long indwelling because of his anasarca. PAST MEDICAL HISTORY: In addition to the renal insufficiency and CHF, he also has marked obesity with a BMI of over 40. ALLERGIES: HE HAS NO ALLERGIES. SOCIAL HISTORY: He does not smoke. He drinks alcohol socially. No illicit drug use. FAMILY HISTORY: Noncontributory. REVIEW OF SYMPTOMS: He has some shortness of breath. No chest pain. No symptoms thus far with his head, eyes, ears, nose, or throat. No psychiatric symptoms. No GI symptoms. He does have musculoskeletal symptoms because of his foot ulcerations and has difficulty walking. PHYSICAL EXAMINATION: GENERAL: Shows him to be markedly obese. VITAL SIGNS: He is afebrile, pulse 88, blood pressure 174/81, respirations 20. HEENT: Normocephalic. Sclerae are clear. Conjunctivae not injected. BACK: No CVA pain. SKIN: He has marked anasarca. He has pedal edema. No purpura. NEUROLOGIC: He is well oriented x3. LABORATORY DATA: Lab work shows a hemoglobin 8.6 with a white count of 9000. His creatinine is 3.4 with a BUN of 104. His coags show an INR of 1.43. His serologies are all negative. IMPRESSION: Marked postvoid residual in a person with congestive heart failure. He is on Flomax. I would keep the Long indwelling for now. He is diuresed. When he is at his maximum improvement from the cardiac point of view, we can give him another voiding trial and see how he does. The Flomax can be increased to b.i.d. He would be a very poor surgical candidate under any circumstance. Kristian Ann MD
[2016-11-14] MEDS: Pantoprazole 40 mg EC Tab PO SCH (06:18)
--- NOTE | 2016-11-14 08:22 | CP.PCM.PN ---
<Archana Rosales - Last Filed: 11/14/16 08:20> Subjective - Date & Time of Evaluation Date of Evaluation: 11/14/16 Time of Evaluation: 08:20 - Subjective Subjective: 65 yo male patient was seen at bedside this AM concerning open ulcerations to Right bimalleolar aspect and Left dorsal aspect of 1st ray. AAO x3. Patient denies of any acute overnight distress. Dressing to bilateral lower extremity appears cdi. He denies of any pain to bilateral extremity. Patient denies of any N/V/F/C or SOB today Objective - Vital Signs/Intake and Output Vital Signs (last 24 hours): Temp Pulse Resp BP Pulse Ox 97.9 F 82 18 141/84 98 11/13/16 23:17 11/13/16 23:17 11/13/16 23:17 11/13/16 23:17 11/13/16 06:00 Intake and Output: 11/14/16 11/14/16 06:59 18:59 Intake Total 755 Output Total 500 Balance 255 - Medications Medications: Current Medications Ascorbic Acid (Vitamin C 500 Mg Tab) 500 mg PO DAILY [facility] Last Admin: 11/13/16 11:21 Dose: 500 mg Aspirin (Aspirin Chewable) 81 mg PO DAILY [facility] Last Admin: 11/13/16 11:21 Dose: 81 mg Atorvastatin Calcium (Lipitor) 40 mg PO DIN [facility] Last Admin: 11/13/16 18:38 Dose: 40 mg Carvedilol (Coreg) 3.125 mg PO BID [facility] Last Admin: 11/13/16 18:35 Dose: 3.125 mg Collagenase (Santyl) 0 gm TOP DAILY [facility] Last Admin: 11/13/16 11:35 Dose: Not Given Ergocalciferol (Drisdol 50,000 Intl Units Cap) 1 cap PO Q7D [facility] Last Admin: 11/12/16 12:08 Dose: 1 cap Ferrous Sulfate (Feosol) 324 mg PO TID [facility] Last Admin: 11/13/16 18:35 Dose: 324 mg Furosemide (Lasix) 80 mg IVP BID [facility] Last Admin: 11/13/16 23:17 Dose: 80 mg Heparin Sodium (Porcine) (Heparin) 5,000 units SC Q12 [facility] PRN Reason: Protocol Last Admin: 11/13/16 21:41 Dose: 5,000 units Hydralazine HCl (Apresoline) 25 mg PO QID [facility] Last Admin: 11/13/16 21:41 Dose: 25 mg Ceftriaxone Sodium (Rocephin 1 Gram Ivpb) 1 gm in 100 mls @ 100 mls/hr IVPB DAILY [facility] PRN Reason: Protocol Last Admin: 11/13/16 11:22 Dose: 100 mls/hr Insulin Human Regular (Humulin R Low) 0 units SC ACHS [facility] PRN Reason: Protocol Last Admin: 11/13/16 21:42 Dose: Not Given Metolazone (Zaroxolyn) 5 mg PO BID [facility] Last Admin: 11/13/16 18:38 Dose: 5 mg Multi-Ingredient Cream (Hydrocerin Cream) 0 ea TOP DAILY [facility] Last Admin: 11/13/16 11:33 Dose: Not Given Pantoprazole Sodium (Protonix Ec Tab) 40 mg PO 0600 [facility] Last Admin: 11/14/16 06:18 Dose: 40 mg Spironolactone (Aldactone) 25 mg PO BID [facility] Last Admin: 11/13/16 18:35 Dose: 25 mg Tamsulosin HCl (Flomax) 0.4 mg PO DAILY [facility] Last Admin: 11/13/16 11:21 Dose: 0.4 mg Zinc Sulfate (Zinc Sulfate 220 Mg Cap) 220 mg PO DAILY [facility] Last Admin: 11/13/16 11:21 Dose: 220 mg - Labs Labs: 11/13/16 05:33 11/13/16 05:33 PT 15.4 Seconds (9.9-11.8) H 11/09/16 07:10 INR 1.43 (0.93-1.08) H 11/09/16 07:10 APTT 29.0 Seconds (23.7-30.8) 11/08/16 11:30 - Constitutional Appears: Well, Non-toxic, No Acute Distress - Extremities Exam Additional comments: bilateral lower extremities exam DERM: Right - Open ulceration noted to either sides of malleolus each measuring 1cm x 1cmx 0.2cm with 100% fibrotic bases. Mild serous drainage is noted from both wounds. No purulent discharge is noted. No sign of acute infections is noted. No PTB Left - Open ulceration to dorsal aspect of Left 1st metatarsal measuring 7cm x 2cm x 0.2cm with 100% fibrotic base. No drainage is noted. No purulent discharge noted. No mal-odor is noted. No erythema around the wound is noted. No maceration noted to the wound edges. No sign of acute infections is noted. No PTB VASC: Non-palpable DP and PT noted bilaterally. SWITCH CLEANER less than 3 seconds to all digits noted. ORTHO: Mild pain induced on palpation to ulcerations. Decreased ROM to joints distal to ankle NEURO: Gross sensation diminished to distal aspect of bilateral feet, tested with monofilament 9 points plantar feet - Neurological Exam Neurological Exam: Alert, Awake, Oriented x3 - Psychiatric Exam Psychiatric exam: Normal Affect, Normal Mood - Skin Skin Exam: Normal Color, Warm Assessment and Plan - Assessment and Plan (Free Text) Assessment: 65 yo male patient presents with open ulcerations to bilateral lower extremities Perez Stage ii Plan: Patient was seen, evaluated Rounded with attending Dr. Amos Labs and vitals reviewed Right - Right lower extremity cleansed with Sterile normal saline. Santyl and DSD applied to ulcerations bilateral malleolus Left - Left foot cleansed with Sterile normal saline and dressed with Santyl and DSD MRI (-)OM Left WCX :Serratia Marcescens Podiatry will follow in-house <Kurtis Amos - Last Filed: 11/14/16 09:27> Objective - Vital Signs/Intake and Output Vital Signs (last 24 hours): Temp Pulse Resp BP Pulse Ox 97.9 F 82 18 141/84 98 11/13/16 23:17 11/13/16 23:17 11/13/16 23:17 11/13/16 23:17 11/13/16 06:00 Intake and Output: 11/14/16 11/14/16 06:59 18:59 Intake Total 755 Output Total 500 Balance 255 - Medications Medications: Current Medications Ascorbic Acid (Vitamin C 500 Mg Tab) 500 mg PO DAILY [facility] Last Admin: 11/13/16 11:21 Dose: 500 mg Aspirin (Aspirin Chewable) 81 mg PO DAILY [facility] Last Admin: 11/13/16 11:21 Dose: 81 mg Atorvastatin Calcium (Lipitor) 40 mg PO DIN [facility] Last Admin: 11/13/16 18:38 Dose: 40 mg Carvedilol (Coreg) 3.125 mg PO BID [facility] Last Admin: 11/13/16 18:35 Dose: 3.125 mg Collagenase (Santyl) 0 gm TOP DAILY [facility] Last Admin: 11/13/16 11:35 Dose: Not Given Ergocalciferol (Drisdol 50,000 Intl Units Cap) 1 cap PO Q7D [facility] Last Admin: 11/12/16 12:08 Dose: 1 cap Ferrous Sulfate (Feosol) 324 mg PO TID [facility] Last Admin: 11/13/16 18:35 Dose: 324 mg Furosemide (Lasix) 80 mg IVP BID [facility] Last Admin: 11/13/16 23:17 Dose: 80 mg Heparin Sodium (Porcine) (Heparin) 5,000 units SC Q12 [facility] PRN Reason: Protocol Last Admin: 11/13/16 21:41 Dose: 5,000 units Hydralazine HCl (Apresoline) 25 mg PO QID [facility] Last Admin: 11/13/16 21:41 Dose: 25 mg Ceftriaxone Sodium (Rocephin 1 Gram Ivpb) 1 gm in 100 mls @ 100 mls/hr IVPB DAILY [facility] PRN Reason: Protocol Last Admin: 11/13/16 11:22 Dose: 100 mls/hr Insulin Human Regular (Humulin R Low) 0 units SC ACHS [facility] PRN Reason: Protocol Last Admin: 11/14/16 08:26 Dose: 1 units Metolazone (Zaroxolyn) 5 mg PO BID [facility] Last Admin: 11/13/16 18:38 Dose: 5 mg Multi-Ingredient Cream (Hydrocerin Cream) 0 ea TOP DAILY [facility] Last Admin: 11/13/16 11:33 Dose: Not Given Pantoprazole Sodium (Protonix Ec Tab) 40 mg PO 0600 [facility] Last Admin: 11/14/16 06:18 Dose: 40 mg Spironolactone (Aldactone) 25 mg PO BID [facility] Last Admin: 11/13/16 18:35 Dose: 25 mg Tamsulosin HCl (Flomax) 0.4 mg PO DAILY [facility] Last Admin: 11/13/16 11:21 Dose: 0.4 mg Zinc Sulfate (Zinc Sulfate 220 Mg Cap) 220 mg PO DAILY [facility] Last Admin: 11/13/16 11:21 Dose: 220 mg - Labs Labs: 11/13/16 05:33 11/13/16 05:33 PT 15.4 Seconds (9.9-11.8) H 11/09/16 07:10 INR 1.43 (0.93-1.08) H 11/09/16 07:10 APTT 29.0 Seconds (23.7-30.8) 11/08/16 11:30 Attending/Attestation - Attestation I have personally seen and examined this patient.: Yes I have fully participated in the care of the patient.: Yes I have reviewed all pertinent clinical information, including history, physical exam and plan: Yes
[2016-11-14] MEDS: Insulin Reg-LOW-Coverage SC SCH ×4 (08:26→21:21)
[2016-11-14] MEDS: cefTRIAXone 1 gm 1 GM/100 ML BAG IVPB SCH (10:16)
[2016-11-14] MEDS: metOLazone 5 MG TAB PO SCH ×2 (10:17→17:10)
[2016-11-14] MEDS: Hydrocerin(120 gm) TOP SCH (10:18)
[2016-11-14] MEDS: Collagenase 250 Units/gm Ointment(30 gm) TOP SCH (10:19)
[2016-11-14 11:47] LABS: BASO # 0.01 K/mm3 (0.0-2.0); BASO % 0.1 % (0.0-3.0); EOS # 0.3 (0.0-0.7); EOS % 2.7 % (1.5-5.0); GRAN # 8.61 (1.4-6.5); GRAN % 85.4 % (50.0-68.0); HEMATOCRIT 30.1 % (42.0-52.0); LYMPH # 0.6 (1.2-3.4); LYMPH % 6.2 % (22.0-35.0); MEAN CELL VOLUME 90.1 fl (80.0-105.0); MEAN CORPUSCULAR HGB CONC 32.2 g/dl (31.0-37.0); MEAN PLATELET VOLUME 10.8 fl (7.0-11.0); MONO # 0.6 (0.1-0.6); MONO % 5.6 % (1.0-6.0); RED CELL DISTRIBUTION WIDTH 18.6 % (11.5-14.5); WHITE BLOOD COUNT 10.1 10^3/ul (4.5-11.0)
[2016-11-14 11:57] LABS: ALB/GLOB RATIO 0.7 (1.1-1.8); BILIRUBIN,TOTAL 1.6 mg/dL (0.2-1.3); CALCIUM 8.9 mg/dL (8.4-10.5); POTASSIUM 4.8 mmol/L (3.6-5.0); TOTAL PROTEIN 7.7 g/dL (5.8-8.3)
--- NOTE | 2016-11-14 13:31 | CP.PCM.PN ---
Subjective - Date & Time of Evaluation Date of Evaluation: 11/14/16 Time of Evaluation: 13:30 - Subjective Subjective: seen and examined no complaints Objective - Vital Signs/Intake and Output Vital Signs (last 24 hours): Temp Pulse Resp BP Pulse Ox 97.9 F 81 18 131/73 98 11/13/16 23:17 11/14/16 10:18 11/13/16 23:17 11/14/16 10:18 11/13/16 06:00 Intake and Output: 11/14/16 11/14/16 06:59 18:59 Intake Total 755 Output Total 500 Balance 255 - Medications Medications: Current Medications Ascorbic Acid (Vitamin C 500 Mg Tab) 500 mg PO DAILY [facility]S [facility]CLUDE 234 BEDS AT THE [facility] Last Admin: 11/14/16 10:18 Dose: 500 mg Aspirin (Aspirin Chewable) 81 mg PO DAILY COUNTS INCLUDE 234 BEDS AT THE [facility] Last Admin: 11/14/16 10:17 Dose: 81 mg Atorvastatin Calcium (Lipitor) 40 mg PO DIN COUNTS INCLUDE 234 BEDS AT THE [facility] Last Admin: 11/13/16 18:38 Dose: 40 mg Carvedilol (Coreg) 3.125 mg PO BID COUNTS INCLUDE 234 BEDS AT THE [facility] Last Admin: 11/14/16 10:17 Dose: 3.125 mg Collagenase (Santyl) 0 gm TOP DAILY COUNTS INCLUDE 234 BEDS AT THE [facility] Last Admin: 11/14/16 10:19 Dose: 1 applic Ergocalciferol (Drisdol 50,000 Intl Units Cap) 1 cap PO Q7D COUNTS INCLUDE 234 BEDS AT THE [facility] Last Admin: 11/12/16 12:08 Dose: 1 cap Ferrous Sulfate (Feosol) 324 mg PO TID COUNTS INCLUDE 234 BEDS AT THE [facility] Last Admin: 11/14/16 10:18 Dose: 324 mg Furosemide (Lasix) 80 mg IVP BID COUNTS INCLUDE 234 BEDS AT THE [facility] Last Admin: 11/14/16 10:15 Dose: 80 mg Heparin Sodium (Porcine) (Heparin) 5,000 units SC Q12 COUNTS INCLUDE 234 BEDS AT THE [facility] PRN Reason: Protocol Last Admin: 11/14/16 10:16 Dose: 5,000 units Hydralazine HCl (Apresoline) 25 mg PO QID COUNTS INCLUDE 234 BEDS AT THE [facility] Last Admin: 11/14/16 10:18 Dose: 25 mg Ceftriaxone Sodium (Rocephin 1 Gram Ivpb) 1 gm in 100 mls @ 100 mls/hr IVPB DAILY [facility]S INCLUDE 234 BEDS AT THE [facility] PRN Reason: Protocol Last Admin: 11/14/16 10:16 Dose: 100 mls/hr Insulin Human Regular (Humulin R Low) 0 units SC ACHS COUNTS INCLUDE 234 BEDS AT THE [facility] PRN Reason: Protocol Last Admin: 11/14/16 12:27 Dose: 1 units Metolazone (Zaroxolyn) 5 mg PO BID COUNTS INCLUDE 234 BEDS AT THE [facility] Last Admin: 11/14/16 10:17 Dose: 5 mg Multi-Ingredient Cream (Hydrocerin Cream) 0 ea TOP DAILY COUNTS INCLUDE 234 BEDS AT THE [facility] Last Admin: 11/14/16 10:18 Dose: 1 applic Pantoprazole Sodium (Protonix Ec Tab) 40 mg PO 0600 COUNTS INCLUDE 234 BEDS AT THE [facility] Last Admin: 11/14/16 06:18 Dose: 40 mg Spironolactone (Aldactone) 25 mg PO BID COUNTS INCLUDE 234 BEDS AT THE [facility] Last Admin: 11/14/16 10:18 Dose: 25 mg Tamsulosin HCl (Flomax) 0.4 mg PO BID COUNTS INCLUDE 234 BEDS AT THE [facility] Zinc Sulfate (Zinc Sulfate 220 Mg Cap) 220 mg PO DAILY COUNTS INCLUDE 234 BEDS AT THE [facility] Last Admin: 11/14/16 10:17 Dose: 220 mg - Labs Labs: 11/14/16 11:40 11/14/16 11:40 PT 15.4 Seconds (9.9-11.8) H 11/09/16 07:10 INR 1.43 (0.93-1.08) H 11/09/16 07:10 APTT 29.0 Seconds (23.7-30.8) 11/08/16 11:30 - Constitutional Appears: Non-toxic - Head Exam Head Exam: ATRAUMATIC - Eye Exam Eye Exam: Normal appearance - ENT Exam ENT Exam: Normal Exam - Neck Exam Neck Exam: Normal Inspection - Respiratory Exam Respiratory Exam: NORMAL BREATHING PATTERN - Cardiovascular Exam Cardiovascular Exam: +S1, +S2 - GI/Abdominal Exam Additional comments: distended - Extremities Exam Additional comments: 3+ - Neurological Exam Neurological Exam: Alert, Oriented x3 - Psychiatric Exam Psychiatric exam: Normal Mood - Skin Skin Exam: Dry, Intact Assessment and Plan - Assessment and Plan (Free Text) Assessment: Acute Kidney Injury (N17.9) possibly due to Chronic NSAIDs use. also contribution by his severe CHF (cardio-renal) Fluid overload, Anasarca with CHF exacerbation Diabetic chronic Kidney Disease (E11.22) Hypertensive Chronic Kidney Disease (I12.9) Chronic Kidney Disease (N18.9) Stage with 200 proteinuria (R80.9) possibly due to his long standing hx of HTN, atherosclerotic vasc disease Anemia (D64.9), HTN (I12.9), DM, CHF, Morbid obesity, YASMIN on CPAP, back pain, Hypernatremia, heel ulcers, ventral hernia, ascites Vit D def and secondary hyperparathyroidism Plan Cr stable continue diuretics UOP seems improved bp stable cont iron and s/p aranesp 11/12. continue with weekly Vit D 50,000 unit x 8 doses.
--- NOTE | 2016-11-14 16:27 | CP.PCM.PN ---
<Carlos Vilchis - Last Filed: 11/14/16 16:30> Subjective - Date & Time of Evaluation Date of Evaluation: 11/14/16 Time of Evaluation: 07:10 - Subjective Subjective: Pt s/e bedside. Patient states that he feels much better today. He also states that his b/l UE and LE swelling is much improved. Patient denies sob. His lower back pain is improved, but still present. Podiatry is tending to his toe abscess and foot infection. Pt denies cp/sob/n/v/d/f/ch. Objective - Vital Signs/Intake and Output Vital Signs (last 24 hours): Temp Pulse Resp BP Pulse Ox 97.9 F 81 18 131/73 98 11/13/16 23:17 11/14/16 13:47 11/13/16 23:17 11/14/16 13:47 11/13/16 06:00 Intake and Output: 11/14/16 11/14/16 06:59 18:59 Intake Total 755 480 Output Total 500 Balance 255 480 - Medications Medications: Current Medications Ascorbic Acid (Vitamin C 500 Mg Tab) 500 mg PO DAILY [facility] Last Admin: 11/14/16 10:18 Dose: 500 mg Aspirin (Aspirin Chewable) 81 mg PO DAILY [facility] Last Admin: 11/14/16 10:17 Dose: 81 mg Atorvastatin Calcium (Lipitor) 40 mg PO DIN [facility] Last Admin: 11/13/16 18:38 Dose: 40 mg Carvedilol (Coreg) 3.125 mg PO BID [facility] Last Admin: 11/14/16 10:17 Dose: 3.125 mg Collagenase (Santyl) 0 gm TOP DAILY [facility] Last Admin: 11/14/16 10:19 Dose: 1 applic Ergocalciferol (Drisdol 50,000 Intl Units Cap) 1 cap PO Q7D [facility] Last Admin: 11/12/16 12:08 Dose: 1 cap Ferrous Sulfate (Feosol) 324 mg PO TID [facility] Last Admin: 11/14/16 13:47 Dose: 324 mg Furosemide (Lasix) 80 mg IVP BID [facility] Last Admin: 11/14/16 10:15 Dose: 80 mg Heparin Sodium (Porcine) (Heparin) 5,000 units SC Q12 [facility] PRN Reason: Protocol Last Admin: 11/14/16 10:16 Dose: 5,000 units Hydralazine HCl (Apresoline) 25 mg PO QID [facility] Last Admin: 11/14/16 13:47 Dose: 25 mg Ceftriaxone Sodium (Rocephin 1 Gram Ivpb) 1 gm in 100 mls @ 100 mls/hr IVPB DAILY [facility] PRN Reason: Protocol Last Admin: 11/14/16 10:16 Dose: 100 mls/hr Insulin Human Regular (Humulin R Low) 0 units SC ACHS [facility] PRN Reason: Protocol Last Admin: 11/14/16 12:27 Dose: 1 units Metolazone (Zaroxolyn) 5 mg PO BID [facility] Last Admin: 11/14/16 10:17 Dose: 5 mg Multi-Ingredient Cream (Hydrocerin Cream) 0 ea TOP DAILY [facility] Last Admin: 11/14/16 10:18 Dose: 1 applic Pantoprazole Sodium (Protonix Ec Tab) 40 mg PO 0600 [facility] Last Admin: 11/14/16 06:18 Dose: 40 mg Spironolactone (Aldactone) 25 mg PO BID [facility] Last Admin: 11/14/16 10:18 Dose: 25 mg Tamsulosin HCl (Flomax) 0.4 mg PO BID [facility] Zinc Sulfate (Zinc Sulfate 220 Mg Cap) 220 mg PO DAILY [facility] Last Admin: 11/14/16 10:17 Dose: 220 mg - Labs Labs: 11/14/16 11:40 11/14/16 11:40 PT 15.4 Seconds (9.9-11.8) H 11/09/16 07:10 INR 1.43 (0.93-1.08) H 11/09/16 07:10 APTT 29.0 Seconds (23.7-30.8) 11/08/16 11:30 - Additional Findings Additional findings: VS as below Constitutional: a&o x 4, nad Head and Neck: neck supple, no jvd, trachea midline, carotid midline, no cervical/head mass Eyes: nai, nonicteric sclera, eom intact ENT: auditory acuity grossly intact, throat not congested, no nasal deformity Cardio: rrr, no m/r/g, no carotid bruit, nml s1, s2 Pulm: no accessory muscle use, equal nml breath sounds bilaterally, ctab MSK: +Mild TTP in the lumbar area on the left Abd: s/nt/nd, nbs x 4 q, no palpable masses Derm: no rashes, no ulcers, no lesions Extr: 2-3+ pitting edema; malodorous feet; onychomycosis. Bandages just changed by Podiatry. Pt's legs and arms look much better today. Neuro: cn II-XII grossly intact, ue and le 5/5 muscle strength bilaterally, no los ue, le bilaterally and core Assessment and Plan - Assessment and Plan (Free Text) Assessment: 65yo male with extensive history including CHF, CKD, YASMIN, HTN, DM2 presents c/o low back pain and dyspnea Plan: 1. CHF -Patient admitted to telemetry for monitoring -EKG reviewed; revealed sinus rhythm at 69bpm, low voltage qrs, possible anterolateral infarct (age undetermined) -CXR reviewed; cardiomegaly -Troponin 0.09 indeterminate, will trend [place] [address] -Patient started on lasix 40mg IVP q12h, aldactone 25mg PO BID, coreg 3.125mg PO BID pending pharmacy medications reconciliation -Echocardiogram LVEF - 22.4% -Strict I's and O's -Daily Weight -HOB > 45' -Cardiology consulted - Dr. Watt Hold Bumex Milrinone Aldactone Lasix 2. Low back pain -Lumbar spine x-ray: no acute disease -Pain control 3. CKD -Unknown staging/baseline; Creatinine on admission 3.3, will trend -Urine studies pending: random urine sodium, creatinine, urea -Will avoid nephrotoxic agents and renally dose medications -Nephrology consulted - Dr. Carreon No acute need for renal replacement therapy at this time. discussed with patient that due to his advanced renal insuff, CHF and fluid overload, dialysis could be anticipated in near future such as months. Pt advised to abstain from NSAIDs completely. Hypertension control with meds as ordered. Patient on RAAS lei with aldactone Agree with iron supplements: Dose of Aransep 60 mcg on 11/12/16 Will start weekly Vit D 50,000 unit x 8 doses. Also started on flomax 0.4 mg/day. recommend urology eval for elevated PVR on sonogram. Diuretics - Lasix 80 mg iv bid; Metolazone 5 mg po bid. Changed 11/13/16 Monitor Input/Output, daily weights and renal function with basic metabolic panel Check urine analysis, spot protein/creatinine and albumin/creatinine ratio, renal/bladder sonogram. Check for 25-OH vitamin D, iPTH level Check serum protein electrophoresis with immunofixation, kappa/lambda ratio also check HIV/Hep B and Hep C serology Dose meds/antibiotics for reduced GFR. Avoid fleets enema/magnesium based laxatives. Avoid nephrotoxins/NSAIDs/ iodinated contrast (unless needed emergently) Glycemic control - Diuresis is working very well - Monitor I/O 4. Left toe abscess, Right foot infection - ID C/s: Continue Rocephin day 2 since the Serratia in the wound is sensitive () - Podiatry C/s: Right - Right lower extremity cleansed with Sterile normal saline. Santyl and DSD applied to ulcerations bilateral malleolus Left - Left foot cleansed with Sterile normal saline and dressed with Santyl and DSD MRI (-)OM Left CWX :Serratia Marcescens b/l feet xray negative for osteomyelitis 5. DM type 2 -Consistent carb/heart healthy diet -Fingersticks ACHS -Humulin low dose ISS -Oral agents held 6. Anemia -Anemia workup pending including: Iron, Ferritin, TIBC, B12, Folate, Reticulocyte count -No overt signs of bleeding, will continue to follow H/H -Heme/Onc C/s: - Anemia - Hb of 8.6 - s/p 1 unit prbc - recommend transfusing 1 more unit PRBC, 11/13 - F/u Anemia work up - Iron low 16- Venofer 200mg x 1 - Work up to r/o Multiple Myeloma has been ordered - total lilli/prince is elevated but ratio is normal unlikely MM - F/u DOMINIQUE SPEP and serum and urine immunofixation - Cont Feosol - F/u ID recs for abx - cont Rocephin - F/u Renal recs - Cr today of 3.4 - HIV and Hepatitis normal - Physical therapy 7. Hypertension -Antihypertensives pending confirmation with patient's pharmacy; in the meantime , continue lasix and aldactone 8. YASMIN -CPAP at night; titrate to maintain O2sat > 90% 9. GI/DVT Prophylaxis -Protonix/Heparin SC Records obtained from [facility] - Dr. Glover seen there for pain. No active pain management, patient needs to get a CT and MRI outpatient. Dispo: CHF Exacerbation with very little improvement in b/l LE swelling. Patient needs diuretic therapy. B/l feet infections being treated by podiatry and ID. Consider keeping him in house 11/14 and 11/15 for aggressive diuresis as above. Patient seen and case discussed with attending, Dr. Ley <Chris Ley - Last Filed: 12/31/16 19:13> Objective - Vital Signs/Intake and Output Vital Signs (last 24 hours): Temp Pulse Resp BP Pulse Ox 98.4 F 73 20 117/67 100 11/20/16 08:25 11/20/16 13:21 11/20/16 08:25 11/20/16 13:21 11/20/16 08:25 - Labs Labs: 11/20/16 06:50 11/20/16 06:50 PT 14.7 Seconds (9.9-11.8) H 11/18/16 09:50 INR 1.36 (0.93-1.08) H 11/18/16 09:50 APTT 31.6 Seconds (23.7-30.8) H 11/18/16 09:50 Attending/Attestation - Attestation I have personally seen and examined this patient.: Yes I have fully participated in the care of the patient.: Yes I have reviewed all pertinent clinical information, including history, physical exam and plan: Yes Notes (Text): 12/31/16 19:13 Medical record note made by the resident after discussion with my direction and input after the patient was personally seen and examined by me. I have reviewed the chart and agree that the record accurately reflects by personal performance of the history, physical exam, data review, and medical decision-making, in the course for the patient. I have also personally directed the plan of care.
[2016-11-15] MEDS: Pantoprazole 40 mg EC Tab PO SCH (05:49)
--- NOTE | 2016-11-15 06:10 | PN ---
DATE: 11/14/2016 SUBJECTIVE: The patient is in bed, in no acute distress, nontoxic. PHYSICAL EXAMINATION: VITAL SIGNS: Temperature is 97, blood pressure is 130/70, and respiratory rate of 18. HEENT: Unremarkable. NECK: Supple. LUNGS: Decreased breath sounds. HEART: Normal S1 and S2. ABDOMEN: Soft and nontender. LABORATORY DATA: Reveals the patient to have a white count of 10.1, hemoglobin of 9 and platelets of 144. Chemistry reveals a BUN of 115 and creatinine of 3.2. The toe culture is positive for Serratia marcescens. Sensitivity of Serratia is noted to be sensitive to ceftriaxone, intermediate to Cipro, sensitive to cefepime. Review of orders reveals the patient to be on ceftriaxone. MRI of the foot is pending. The results are pending. ASSESSMENT AND PLAN: This is a 65-year-old male with Serratia foot infection, skin and skin soft tissue infection with chronic congestive heart failure, chronic renal failure, diabetes mellitus, morbid obesity with BMI of 40, right foot infection with Serratia, on day #4 of ceftriaxone, awaiting for MRI results to determine induration of therapy. Dr. Vilchis's note is reviewed and Dr. Amos's note is reviewed. We will make further recommendations upon availability of the MRI results. Charlie Taylor MD
[2016-11-15 06:14] LABS: BASO # 0.01 K/mm3 (0.0-2.0); BASO % 0.1 % (0.0-3.0); EOS # 0.4 (0.0-0.7); EOS % 3.9 % (1.5-5.0); GRAN # 7.83 (1.4-6.5); GRAN % 83.7 % (50.0-68.0); HEMATOCRIT 29.9 % (42.0-52.0); LYMPH # 0.4 (1.2-3.4); LYMPH % 3.9 % (22.0-35.0); MEAN CELL VOLUME 89.5 fl (80.0-105.0); MEAN CORPUSCULAR HGB CONC 32.4 g/dl (31.0-37.0); MEAN PLATELET VOLUME 10.4 fl (7.0-11.0); MONO # 0.8 (0.1-0.6); MONO % 8.4 % (1.0-6.0); RED CELL DISTRIBUTION WIDTH 18.8 % (11.5-14.5); WHITE BLOOD COUNT 9.4 10^3/ul (4.5-11.0)
[2016-11-15 06:22] LABS: ALB/GLOB RATIO 0.7 (1.1-1.8); BILIRUBIN,TOTAL 1.3 mg/dL (0.2-1.3); CALCIUM 8.9 mg/dL (8.4-10.5); POTASSIUM 4.6 mmol/L (3.6-5.0); TOTAL PROTEIN 7.5 g/dL (5.8-8.3)
[2016-11-15] MEDS: Insulin Reg-LOW-Coverage SC SCH ×4 (08:29→22:42)
[2016-11-15] MEDS: metOLazone 5 MG TAB PO SCH ×2 (09:16→17:15)
[2016-11-15] MEDS: cefTRIAXone 1 gm 1 GM/100 ML BAG IVPB SCH (09:17)
[2016-11-15] MEDS: Hydrocerin(120 gm) TOP SCH (09:19)
[2016-11-15] MEDS: Collagenase 250 Units/gm Ointment(30 gm) TOP SCH (09:20)
--- NOTE | 2016-11-15 12:28 | PN ---
DATE: 11/15/2016 SUBJECTIVE: The patient is seem earlier today. No fevers. No chills. He is complaining of left arm swelling and mild erythema. PHYSICAL EXAMINATION: VITAL SIGNS: Temperature 98, blood pressure 160/80, respiratory rate 18, and heart rate 77. HEENT: Unremarkable. NECK: Supple. LUNGS: Decreased breath sounds. HEART: Normal S1 and S2. ABDOMEN: Soft and nontender. LABORATORY DATA: Reveals a white count of 9.4, hemoglobin of 9, and platelets of 141. Chemistry reveals a BUN of 118, creatinine of 3.3, and alkaline phosphatase of 206. Urinalysis as noted. Examination of the arm has mild edema. ASSESSMENT AND PLAN: He is a 65-year-old with Serratia with a foot infection, skin and soft tissue infection, congestive heart failure, chronic renal failure, diabetes mellitus, morbid obesity with body mass index of 40, right foot infection with Serratia on day #5 of ceftriaxone now with left arm swelling. We will order an ultrasound of the left arm and subclavian to rule out DVT. Pending MRI of the foot results. Currently on ceftriaxone. Charlie Taylor MD
--- NOTE | 2016-11-15 13:35 | CP.PCM.PN ---
<Archana Rosales - Last Filed: 11/15/16 13:34> Subjective - Date & Time of Evaluation Date of Evaluation: 11/15/16 Time of Evaluation: 09:00 - Subjective Subjective: 65 yo male patient was seen at bedside this AM concerning open ulcerations to Right bimalleolar aspect and Left dorsal aspect of 1st ray. Dressing to bilateral lower extremity appears cdi. AAO x3. Patient denies of any acute overnight distress. Patient denies of any N/V/F/C or SOB today Objective - Vital Signs/Intake and Output Vital Signs (last 24 hours): Temp Pulse Resp BP Pulse Ox 98.9 F 77 18 166/86 H 99 11/15/16 12:23 11/15/16 12:23 11/13/16 23:17 11/15/16 12:23 11/15/16 12:23 Intake and Output: 11/15/16 11/15/16 06:59 18:59 Intake Total 120 540 Output Total 750 700 Balance -630 -160 - Medications Medications: Current Medications Acetaminophen (Tylenol 325mg Tab) 650 mg PO Q4H PRN PRN Reason: Pain, moderate (4-7) Ascorbic Acid (Vitamin C 500 Mg Tab) 500 mg PO DAILY [facility] Last Admin: 11/15/16 09:16 Dose: 500 mg Aspirin (Aspirin Chewable) 81 mg PO DAILY [facility] Last Admin: 11/15/16 09:16 Dose: 81 mg Atorvastatin Calcium (Lipitor) 40 mg PO DIN [facility] Last Admin: 11/14/16 17:11 Dose: 40 mg Carvedilol (Coreg) 3.125 mg PO BID [facility] Last Admin: 11/15/16 09:18 Dose: 3.125 mg Collagenase (Santyl) 0 gm TOP DAILY [facility] Last Admin: 11/15/16 09:20 Dose: 1 applic Ergocalciferol (Drisdol 50,000 Intl Units Cap) 1 cap PO Q7D [facility] Last Admin: 11/12/16 12:08 Dose: 1 cap Ferrous Sulfate (Feosol) 324 mg PO TID [facility] Last Admin: 11/15/16 09:18 Dose: 324 mg Furosemide (Lasix) 80 mg IVP BID [facility] Last Admin: 11/15/16 09:17 Dose: 80 mg Heparin Sodium (Porcine) (Heparin) 5,000 units SC Q12 [facility] PRN Reason: Protocol Last Admin: 11/15/16 09:16 Dose: 5,000 units Hydralazine HCl (Apresoline) 25 mg PO QID [facility] Last Admin: 11/15/16 09:17 Dose: 25 mg Ceftriaxone Sodium (Rocephin 1 Gram Ivpb) 1 gm in 100 mls @ 100 mls/hr IVPB DAILY [facility] PRN Reason: Protocol Last Admin: 11/15/16 09:17 Dose: 100 mls/hr Insulin Human Regular (Humulin R Low) 0 units SC ACHS [facility] PRN Reason: Protocol Last Admin: 11/15/16 12:09 Dose: 1 units Metolazone (Zaroxolyn) 5 mg PO BID [facility] Last Admin: 11/15/16 09:16 Dose: 5 mg Multi-Ingredient Cream (Hydrocerin Cream) 0 ea TOP DAILY [facility] Last Admin: 11/15/16 09:19 Dose: 1 applic Pantoprazole Sodium (Protonix Ec Tab) 40 mg PO 0600 [facility] Last Admin: 11/15/16 05:49 Dose: 40 mg Spironolactone (Aldactone) 25 mg PO BID [facility] Last Admin: 11/15/16 09:15 Dose: 25 mg Tamsulosin HCl (Flomax) 0.4 mg PO BID [facility] Last Admin: 11/15/16 09:15 Dose: 0.4 mg Zinc Sulfate (Zinc Sulfate 220 Mg Cap) 220 mg PO DAILY [facility] Last Admin: 11/15/16 09:15 Dose: 220 mg - Labs Labs: 11/15/16 05:58 11/15/16 05:58 PT 15.4 Seconds (9.9-11.8) H 11/09/16 07:10 INR 1.43 (0.93-1.08) H 11/09/16 07:10 APTT 29.0 Seconds (23.7-30.8) 11/08/16 11:30 - Constitutional Appears: Well, Non-toxic, No Acute Distress - Head Exam Head Exam: ATRAUMATIC - Extremities Exam Additional comments: bilateral lower extremities exam DERM: Right - Open ulceration noted to either sides of malleolus each measuring 1cm x 1cmx 0.2cm with 100% fibrotic bases. Mild serous drainage is noted from both wounds. No purulent discharge is noted. No sign of acute infections is noted. No PTB Left - Open ulceration to dorsal aspect of Left 1st metatarsal measuring 7cm x 2cm x 0.2cm with 100% fibrotic base. No drainage is noted. No purulent discharge noted. No mal-odor is noted. No erythema around the wound is noted. No maceration noted to the wound edges. No sign of acute infections is noted. No PTB VASC: Non-palpable DP and PT noted bilaterally. PRECISION DANCER less than 3 seconds to all digits noted. ORTHO: Mild pain induced on palpation to ulcerations. Decreased ROM to joints distal to ankle NEURO: Gross sensation diminished to distal aspect of bilateral feet, tested with monofilament 9 points plantar feet - Neurological Exam Neurological Exam: Alert, Awake, Oriented x3 - Psychiatric Exam Psychiatric exam: Normal Affect, Normal Mood - Skin Skin Exam: Normal Color, Warm Assessment and Plan - Assessment and Plan (Free Text) Assessment: 65 yo male patient presents with open ulcerations to bilateral lower extremities Perez Stage ii Plan: Patient was seen, evaluated Rounded with attending Dr. Amos Labs and vitals reviewed Right - Right lower extremity cleansed with Sterile normal saline. Santyl and DSD applied to ulcerations bilateral malleolus Left - Left foot cleansed with Sterile normal saline and dressed with Santyl and DSD MRI (-)OM Left WCX :Serratia Marcescens Podiatry will follow in-house <Kurtis Amos - Last Filed: 11/17/16 11:28> Objective - Vital Signs/Intake and Output Vital Signs (last 24 hours): Temp Pulse Resp BP Pulse Ox 97.9 F 74 20 128/77 96 11/17/16 08:37 11/17/16 09:55 11/17/16 08:37 11/17/16 09:55 11/17/16 08:37 Intake and Output: 11/17/16 11/17/16 06:59 18:59 Intake Total 1380 Output Total 1240 Balance 140 - Medications Medications: Current Medications Acetaminophen (Tylenol 325mg Tab) 650 mg PO Q4H PRN PRN Reason: Pain, moderate (4-7) Last Admin: 11/15/16 22:46 Dose: 650 mg Ascorbic Acid (Vitamin C 500 Mg Tab) 500 mg PO DAILY [facility] Last Admin: 11/17/16 09:54 Dose: 500 mg Aspirin (Aspirin Chewable) 81 mg PO DAILY [facility] Last Admin: 11/17/16 09:56 Dose: 81 mg Atorvastatin Calcium (Lipitor) 40 mg PO DIN [facility] Last Admin: 11/16/16 17:41 Dose: 40 mg Carvedilol (Coreg) 3.125 mg PO BID [facility] Last Admin: 11/17/16 09:55 Dose: 3.125 mg Cefpodoxime Proxetil (Vantin) 100 mg PO Q12 [facility] PRN Reason: Protocol Stop: 11/23/16 22:01 Last Admin: 11/17/16 09:54 Dose: 100 mg Collagenase (Santyl) 0 gm TOP DAILY [facility] Last Admin: 11/17/16 09:57 Dose: 1 applic Ergocalciferol (Drisdol 50,000 Intl Units Cap) 1 cap PO Q7D [facility] Last Admin: 11/12/16 12:08 Dose: 1 cap Ferrous Sulfate (Feosol) 324 mg PO TID [facility] Last Admin: 11/17/16 09:54 Dose: 324 mg Furosemide (Lasix) 80 mg IVP BID [facility] Last Admin: 11/17/16 09:55 Dose: 80 mg Hydralazine HCl (Apresoline) 50 mg PO QID [facility] Last Admin: 11/17/16 10:00 Dose: 50 mg Insulin Human Regular (Humulin R Low) 0 units SC ACHS [facility] PRN Reason: Protocol Last Admin: 11/17/16 07:42 Dose: 1 units Metolazone (Zaroxolyn) 5 mg PO BID [facility] Last Admin: 11/17/16 09:56 Dose: 5 mg Multi-Ingredient Cream (Hydrocerin Cream) 0 ea TOP DAILY [facility] Last Admin: 11/17/16 09:56 Dose: 1 applic Pantoprazole Sodium (Protonix Ec Tab) 40 mg PO 0600 [facility] Last Admin: 11/17/16 07:30 Dose: 40 mg Spironolactone (Aldactone) 25 mg PO BID [facility] Last Admin: 11/17/16 09:56 Dose: 25 mg Tamsulosin HCl (Flomax) 0.4 mg PO BID [facility] Last Admin: 11/17/16 09:54 Dose: 0.4 mg Zinc Sulfate (Zinc Sulfate 220 Mg Cap) 220 mg PO DAILY [facility] Last Admin: 11/17/16 09:54 Dose: 220 mg - Labs Labs: 11/17/16 06:25 11/17/16 06:25 PT 15.4 Seconds (9.9-11.8) H 11/09/16 07:10 INR 1.43 (0.93-1.08) H 11/09/16 07:10 APTT 29.0 Seconds (23.7-30.8) 11/08/16 11:30 Attending/Attestation - Attestation I have personally seen and examined this patient.: Yes I have fully participated in the care of the patient.: Yes I have reviewed all pertinent clinical information, including history, physical exam and plan: Yes
[2016-11-15] MEDS: Prostat 15 g packet GT SCH (13:51)
--- NOTE | 2016-11-15 14:16 | CP.PCM.PN ---
<MameCarlos - Last Filed: 11/15/16 14:02> Subjective - Date & Time of Evaluation Date of Evaluation: 11/15/16 Time of Evaluation: 07:00 - Subjective Subjective: Pt s/e bedside. He states that his b/l swelling continues to improve. Pt denies any current sob. He further states that his pain is better controlled but still present. Patient states that he wants to start getting out of bed more. Pt denies f/ch/n/v/d/cp. No further complaints. Objective - Vital Signs/Intake and Output Vital Signs (last 24 hours): Temp Pulse Resp BP Pulse Ox 98.9 F 77 18 166/86 H 99 11/15/16 12:23 11/15/16 13:50 11/13/16 23:17 11/15/16 13:50 11/15/16 12:23 Intake and Output: 11/15/16 11/15/16 06:59 18:59 Intake Total 120 540 Output Total 750 700 Balance -630 -160 - Medications Medications: Current Medications Acetaminophen (Tylenol 325mg Tab) 650 mg PO Q4H PRN PRN Reason: Pain, moderate (4-7) Ascorbic Acid (Vitamin C 500 Mg Tab) 500 mg PO DAILY [facility] Last Admin: 11/15/16 09:16 Dose: 500 mg Aspirin (Aspirin Chewable) 81 mg PO DAILY [facility] Last Admin: 11/15/16 09:16 Dose: 81 mg Atorvastatin Calcium (Lipitor) 40 mg PO DIN [facility] Last Admin: 11/14/16 17:11 Dose: 40 mg Carvedilol (Coreg) 3.125 mg PO BID [facility] Last Admin: 11/15/16 09:18 Dose: 3.125 mg Collagenase (Santyl) 0 gm TOP DAILY [facility] Last Admin: 11/15/16 09:20 Dose: 1 applic Ergocalciferol (Drisdol 50,000 Intl Units Cap) 1 cap PO Q7D [facility] Last Admin: 11/12/16 12:08 Dose: 1 cap Ferrous Sulfate (Feosol) 324 mg PO TID [facility] Last Admin: 11/15/16 13:50 Dose: 324 mg Furosemide (Lasix) 80 mg IVP BID [facility] Last Admin: 11/15/16 09:17 Dose: 80 mg Heparin Sodium (Porcine) (Heparin) 5,000 units SC Q12 [facility] PRN Reason: Protocol Last Admin: 11/15/16 09:16 Dose: 5,000 units Hydralazine HCl (Apresoline) 25 mg PO QID [facility] Last Admin: 11/15/16 13:50 Dose: 25 mg Ceftriaxone Sodium (Rocephin 1 Gram Ivpb) 1 gm in 100 mls @ 100 mls/hr IVPB DAILY [facility] PRN Reason: Protocol Last Admin: 11/15/16 09:17 Dose: 100 mls/hr Insulin Human Regular (Humulin R Low) 0 units SC ACHS [facility] PRN Reason: Protocol Last Admin: 11/15/16 12:09 Dose: 1 units Metolazone (Zaroxolyn) 5 mg PO BID [facility] Last Admin: 11/15/16 09:16 Dose: 5 mg Multi-Ingredient Cream (Hydrocerin Cream) 0 ea TOP DAILY [facility] Last Admin: 11/15/16 09:19 Dose: 1 applic Pantoprazole Sodium (Protonix Ec Tab) 40 mg PO 0600 [facility] Last Admin: 11/15/16 05:49 Dose: 40 mg Spironolactone (Aldactone) 25 mg PO BID [facility] Last Admin: 11/15/16 09:15 Dose: 25 mg Tamsulosin HCl (Flomax) 0.4 mg PO BID [facility] Last Admin: 11/15/16 09:15 Dose: 0.4 mg Zinc Sulfate (Zinc Sulfate 220 Mg Cap) 220 mg PO DAILY [facility] Last Admin: 11/15/16 09:15 Dose: 220 mg - Labs Labs: 11/15/16 05:58 11/15/16 05:58 PT 15.4 Seconds (9.9-11.8) H 11/09/16 07:10 INR 1.43 (0.93-1.08) H 11/09/16 07:10 APTT 29.0 Seconds (23.7-30.8) 11/08/16 11:30 - Additional Findings Additional findings: VS as below Constitutional: a&o x 4, nad Head and Neck: neck supple, no jvd, trachea midline, carotid midline, no cervical/head mass Eyes: nai, nonicteric sclera, eom intact ENT: auditory acuity grossly intact, throat not congested, no nasal deformity Cardio: rrr, no m/r/g, no carotid bruit, nml s1, s2 Pulm: no accessory muscle use, equal nml breath sounds bilaterally, ctab MSK: +Mild TTP in the lumbar area on the left Abd: s/nt/nd, nbs x 4 q, no palpable masses Derm: no rashes, no ulcers, no lesions Extr: 2-3+ pitting edema; malodorous feet; onychomycosis. Bandages just changed by Podiatry. Pt's legs and arms look much better today. Neuro: cn II-XII grossly intact, ue and le 5/5 muscle strength bilaterally, no los ue, le bilaterally and core Assessment and Plan - Assessment and Plan (Free Text) Assessment: 65yo male with extensive history including CHF, CKD, YASMIN, HTN, DM2 presents c/o low back pain and dyspnea Plan: 1. CHF History: - Tropes were negative - Patient admitted to telemetry for monitoring - EKG reviewed; revealed sinus rhythm at 69bpm, low voltage qrs, possible anterolateral infarct (age undetermined) - CXR reviewed; cardiomegaly [place] [address] - Echocardiogram LVEF - 22.4% Current: - Patient started on lasix 40mg IVP q12h, aldactone 25mg PO BID, coreg 3.125mg PO BID pending pharmacy medications reconciliation - Strict I's and O's - Daily Weight - HOB > 45' - Cardiology consulted - Dr. Watt Hold Bumex Milrinone Aldactone Lasix 2. Low back pain -Pain control 3. CKD History: - No acute need for renal replacement therapy at this time. discussed with patient that due to his advanced renal insuff, CHF and fluid overload, dialysis could be anticipated in near future such as months. - Unknown staging/baseline; Creatinine on admission 3.3, will trend - Dose of Aransep 60 mcg on 11/12/16 Current: -Will avoid nephrotoxic agents and renally dosed medications -Nephrology consulted - Dr. Carreon Pt advised to abstain from NSAIDs completely. Hypertension control with meds as ordered. Patient on RAAS lei with aldactone Weekly Vit D 50,000 unit x 8 doses. Also started on flomax 0.4 mg/day. recommend urology eval for elevated PVR on sonogram. Diuretics - Lasix 80 mg iv bid; Metolazone 5 mg po bid. Changed 11/13/16 Monitor Input/Output, daily weights and renal function with basic metabolic panel Glycemic control - Diuresis is working very well: patient output over the past two days has been -595 and -150 - RPT UA ordered 11/15/16 4. Left toe abscess, Right foot infection - ID C/s: Continue Rocephin day 2 since the Serratia in the wound is sensitive () - Podiatry C/s: Right - Right lower extremity cleansed with Sterile normal saline. Santyl and DSD applied to ulcerations bilateral malleolus Left - Left foot cleansed with Sterile normal saline and dressed with Santyl and DSD MRI (-)OM Left CWX :Serratia Marcescens b/l feet xray negative for osteomyelitis 5. DM type 2 -Consistent carb/heart healthy diet -Fingersticks ACHS -Humulin low dose ISS -Oral agents held 6. Anemia History: - Anemia workup showed low iron - No overt signs of bleeding, will continue to follow H/H - 2 units PRBC's transfused -Heme/Onc C/s: - Venofer 200mg x 1 - Work up to r/o Multiple Myeloma has been ordered - total lilli/prince is elevated but ratio is normal unlikely MM - F/u DOMINIQUE SPEP and serum and urine immunofixation - Cont Feosol - F/u ID recs for abx - cont Rocephin - F/u Renal recs - Cr today of 3.4 - HIV and Hepatitis neg - Physical therapy 7. Hypertension -Antihypertensives pending confirmation with patient's pharmacy; in the meantime , continue lasix and aldactone 8. YASMIN -CPAP at night; titrate to maintain O2sat > 90% 9. GI/DVT Prophylaxis -Protonix/Heparin SC Records obtained from [facility] - Dr. Glover seen there for pain. No active pain management, patient needs to get a CT and MRI outpatient. Dispo: Need to continue aggressive diuresis as above. Patient also needs to start rehab. Consider TCU in the next two days to regain strength and to continue diuresis. Patient seen and case discussed with attending, Dr. Ley <Chris Ley - Last Filed: 12/31/16 19:14> Objective - Vital Signs/Intake and Output Vital Signs (last 24 hours): Temp Pulse Resp BP Pulse Ox 98.4 F 73 20 117/67 100 11/20/16 08:25 11/20/16 13:21 11/20/16 08:25 11/20/16 13:21 11/20/16 08:25 - Labs Labs: 11/20/16 06:50 11/20/16 06:50 PT 14.7 Seconds (9.9-11.8) H 11/18/16 09:50 INR 1.36 (0.93-1.08) H 11/18/16 09:50 APTT 31.6 Seconds (23.7-30.8) H 11/18/16 09:50 Attending/Attestation - Attestation I have personally seen and examined this patient.: Yes I have fully participated in the care of the patient.: Yes I have reviewed all pertinent clinical information, including history, physical exam and plan: Yes Notes (Text): 12/31/16 19:14 Medical record note made by the resident after discussion with my direction and input after the patient was personally seen and examined by me. I have reviewed the chart and agree that the record accurately reflects by personal performance of the history, physical exam, data review, and medical decision-making, in the course for the patient. I have also personally directed the plan of care.
[2016-11-15 15:42] LABS: URINE BILIRUBIN NEGATIVE (NEGATIVE); URINE BLOOD SMALL (NEGATIVE); URINE GLUCOSE (UA) NEGATIVE (NEGATIVE); URINE KETONE NEGATIVE (NEGATIVE); URINE LEUKOCYTE ESTERASE NEGATIVE Leu/uL (NEGATIVE); URINE PROTEIN NEGATIVE mg/dL (<30 mg/dL)
[2016-11-15 15:47] LABS: URINE APPEARANCE CLEAR (CLEAR); URINE COLOR YELLOW (YELLOW)
[2016-11-15 16:22] LABS: URINE BACTERIA MOD (NEG); URINE RBC 15 - 20 /hpf (0-2)
--- NOTE | 2016-11-15 16:48 | CP.PCM.PN ---
<Lara WISDOM,Fuentes - Last Filed: 11/15/16 16:40> Subjective - Date & Time of Evaluation Date of Evaluation: 11/15/16 Time of Evaluation: 17:00 - Subjective Subjective: 65 M with PMH of chronic CHF, chronic renal failure, DM, morbid obesity- BMI 40 , YASMIN on CPAP, sciatica, HTN, S/P left foot debridement (2015) was initially admitted in [facility] [place] for low back pain and dyspnea, now with lower ext ulcers being treated by podiatry and with abx and whose hospital course complicated by anemia which is likely multifactorial but likely secondary to infection and anemia of chronic disease. For now would refrain from further transfusions and continue to observe. If kidney function fails to improve can consider obtaining an epo level to ascertain benefit from erythropoetin. Evaluation for MM unremarkable. Light chains were wnl but a thin possible lamda was seen on SPEP. At this point this finding is inconsequential and would not account for the patient's anemia. Objective - Vital Signs/Intake and Output Vital Signs (last 24 hours): Temp Pulse Resp BP Pulse Ox 98.9 F 77 18 166/86 H 99 11/15/16 12:23 11/15/16 13:50 11/13/16 23:17 11/15/16 13:50 11/15/16 12:23 Intake and Output: 11/15/16 11/15/16 06:59 18:59 Intake Total 120 1300 Output Total 750 1900 Balance -630 -600 - Medications Medications: Current Medications Acetaminophen (Tylenol 325mg Tab) 650 mg PO Q4H PRN PRN Reason: Pain, moderate (4-7) Ascorbic Acid (Vitamin C 500 Mg Tab) 500 mg PO DAILY [facility] Last Admin: 11/15/16 09:16 Dose: 500 mg Aspirin (Aspirin Chewable) 81 mg PO DAILY [facility] Last Admin: 11/15/16 09:16 Dose: 81 mg Atorvastatin Calcium (Lipitor) 40 mg PO DIN [facility] Last Admin: 11/14/16 17:11 Dose: 40 mg Carvedilol (Coreg) 3.125 mg PO BID [facility] Last Admin: 11/15/16 09:18 Dose: 3.125 mg Collagenase (Santyl) 0 gm TOP DAILY [facility] Last Admin: 11/15/16 09:20 Dose: 1 applic Ergocalciferol (Drisdol 50,000 Intl Units Cap) 1 cap PO Q7D [facility] Last Admin: 11/12/16 12:08 Dose: 1 cap Ferrous Sulfate (Feosol) 324 mg PO TID [facility] Last Admin: 11/15/16 13:50 Dose: 324 mg Furosemide (Lasix) 80 mg IVP BID [facility] Last Admin: 11/15/16 09:17 Dose: 80 mg Heparin Sodium (Porcine) (Heparin) 5,000 units SC Q12 [facility] PRN Reason: Protocol Last Admin: 11/15/16 09:16 Dose: 5,000 units Hydralazine HCl (Apresoline) 25 mg PO QID [facility] Last Admin: 11/15/16 13:50 Dose: 25 mg Ceftriaxone Sodium (Rocephin 1 Gram Ivpb) 1 gm in 100 mls @ 100 mls/hr IVPB DAILY [facility] PRN Reason: Protocol Last Admin: 11/15/16 09:17 Dose: 100 mls/hr Insulin Human Regular (Humulin R Low) 0 units SC ACHS [facility] PRN Reason: Protocol Last Admin: 11/15/16 12:09 Dose: 1 units Metolazone (Zaroxolyn) 5 mg PO BID [facility] Last Admin: 11/15/16 09:16 Dose: 5 mg Multi-Ingredient Cream (Hydrocerin Cream) 0 ea TOP DAILY [facility] Last Admin: 11/15/16 09:19 Dose: 1 applic Pantoprazole Sodium (Protonix Ec Tab) 40 mg PO 0600 [facility] Last Admin: 11/15/16 05:49 Dose: 40 mg Spironolactone (Aldactone) 25 mg PO BID [facility] Last Admin: 11/15/16 09:15 Dose: 25 mg Tamsulosin HCl (Flomax) 0.4 mg PO BID [facility] Last Admin: 11/15/16 09:15 Dose: 0.4 mg Zinc Sulfate (Zinc Sulfate 220 Mg Cap) 220 mg PO DAILY [facility] Last Admin: 11/15/16 09:15 Dose: 220 mg - Labs Labs: 11/15/16 05:58 11/15/16 05:58 PT 15.4 Seconds (9.9-11.8) H 11/09/16 07:10 INR 1.43 (0.93-1.08) H 11/09/16 07:10 APTT 29.0 Seconds (23.7-30.8) 11/08/16 11:30 - Constitutional Appears: Well - Respiratory Exam Respiratory Exam: Clear to Ausculation Bilateral, NORMAL BREATHING PATTERN - Cardiovascular Exam Cardiovascular Exam: REGULAR RHYTHM, +S1, +S2. absent: Murmur - GI/Abdominal Exam GI & Abdominal Exam: Distended, Soft. absent: Diminished Bowel Sounds - Extremities Exam Extremities Exam: Pedal Edema. absent: Calf Tenderness, Joint Swelling, Tenderness <Lara,Nasarasamantha P - Last Filed: 01/02/17 17:27> Objective - Vital Signs/Intake and Output Vital Signs (last 24 hours): Temp Pulse Resp BP Pulse Ox 98.4 F 73 20 117/67 100 11/20/16 08:25 11/20/16 13:21 11/20/16 08:25 11/20/16 13:21 11/20/16 08:25 - Labs Labs: 11/20/16 06:50 11/20/16 06:50 PT 14.7 Seconds (9.9-11.8) H 11/18/16 09:50 INR 1.36 (0.93-1.08) H 11/18/16 09:50 APTT 31.6 Seconds (23.7-30.8) H 11/18/16 09:50 Attending/Attestation - Attestation I have personally seen and examined this patient.: Yes I have fully participated in the care of the patient.: Yes I have reviewed all pertinent clinical information, including history, physical exam and plan: Yes
[2016-11-16] MEDS: Pantoprazole 40 mg EC Tab PO SCH (06:17)
[2016-11-16 06:42] LABS: BASO # 0.01 K/mm3 (0.0-2.0); BASO % 0.1 % (0.0-3.0); EOS # 0.4 (0.0-0.7); EOS % 4.4 % (1.5-5.0); GRAN # 7.18 (1.4-6.5); GRAN % 82.4 % (50.0-68.0); HEMATOCRIT 29.7 % (42.0-52.0); LYMPH # 0.3 (1.2-3.4); LYMPH % 3.4 % (22.0-35.0); MEAN CELL VOLUME 89.7 fl (80.0-105.0); MEAN CORPUSCULAR HEMOGLOBIN 28.1 pg (25.0-35.0); MEAN CORPUSCULAR HGB CONC 31.3 g/dl (31.0-37.0); MEAN PLATELET VOLUME 10.6 fl (7.0-11.0); MONO # 0.9 (0.1-0.6); MONO % 9.7 % (1.0-6.0); PLATELET COUNT 147 10^3/uL (120.0-450.0); RED CELL DISTRIBUTION WIDTH 18.4 % (11.5-14.5); WHITE BLOOD COUNT 8.7 10^3/ul (4.5-11.0)
[2016-11-16 07:01] LABS: ALB/GLOB RATIO 0.6 (1.1-1.8); BILIRUBIN,TOTAL 1.3 mg/dL (0.2-1.3); CALCIUM 8.8 mg/dL (8.4-10.5); POTASSIUM 4.4 mmol/L (3.6-5.0); TOTAL PROTEIN 7.4 g/dL (5.8-8.3)
[2016-11-16] MEDS: Insulin Reg-LOW-Coverage SC SCH ×4 (07:35→22:26)
[2016-11-16 08:38] LABS: NEUTROPHIL 85 % (50.0-70.0)
[2016-11-16 08:39] LABS: ANISOCYTOSIS SLIGHT; EOSINOPHIL 2 % (0.0-3.0); HYPOCHROMIA SLIGHT; PLATELET ESTIMATE NORMAL (NORMAL)
[2016-11-16 08:40] LABS: TOXIC GRANULATION SLIGHT
[2016-11-16] MEDS: Prostat 15 g packet GT SCH ×3 (09:00→17:42)
[2016-11-16] MEDS: Collagenase 250 Units/gm Ointment(30 gm) TOP SCH (10:45)
[2016-11-16] MEDS: cefTRIAXone 1 gm 1 GM/100 ML BAG IVPB SCH (10:46)
[2016-11-16] MEDS: Hydrocerin(120 gm) TOP SCH (10:49)
[2016-11-16] MEDS: metOLazone 5 MG TAB PO SCH ×2 (10:54→17:41)
--- NOTE | 2016-11-16 11:52 | PN ---
DATE: 11/16/2016 CARDIOLOGY FOLLOWUP SUBJECTIVE: The patient is comfortable lying flat in bed. No acute dyspnea noted. PHYSICAL EXAMINATION VITAL SIGNS: Blood pressure is 166/97 and heart rate in the 70s. NECK: Negative JVD. LUNGS: Decreased breath sounds bilaterally. HEART: Reveal S1 and S2. EXTREMITIES: Bandage in both lower extremities. LABORATORY DATA: Hemoglobin is 9.3. Chemistries, BUN and creatinine are 117 and 3.4 with a glucose of 142. IMPRESSION 1. Acute systolic congestive heart failure which is now resolved. 2. History of end-stage dilated cardiomyopathy. 3. Renal insufficiency. 4. Diabetes mellitus. 5. Chronic edema in the lower extremities. 6. Lower extremity ulcers. PLAN: Given these findings, we will increase hydralazine to 50 t.i.d. We will continue his IV Lasix. Kamari Watt MD
--- NOTE | 2016-11-16 13:53 | CP.PCM.PN ---
<Ck Doty - Last Filed: 11/16/16 13:49> Subjective - Date & Time of Evaluation Date of Evaluation: 11/16/16 Time of Evaluation: 10:15 - Subjective Subjective: Patient seen and examined. No acute events overnight. C/o of having trouble maintaining sleep because he was feeling mildly anxious. States that the swelling in his arms and legs have significantly improved since admission. Currently denies f/c/cp/SOB/abdominal pain/n/v/diarrhea/constipation/ urinary symptoms. Objective - Vital Signs/Intake and Output Vital Signs (last 24 hours): Temp Pulse Resp BP Pulse Ox 98.2 F 72 20 131/77 99 11/16/16 08:53 11/16/16 08:53 11/16/16 08:53 11/16/16 11:17 11/16/16 08:53 Intake and Output: 11/16/16 11/16/16 06:59 18:59 Intake Total 1036 Output Total 3450 Balance -2414 - Medications Medications: Current Medications Acetaminophen (Tylenol 325mg Tab) 650 mg PO Q4H PRN PRN Reason: Pain, moderate (4-7) Last Admin: 11/15/16 22:46 Dose: 650 mg Ascorbic Acid (Vitamin C 500 Mg Tab) 500 mg PO DAILY [facility] Last Admin: 11/16/16 10:48 Dose: 500 mg Aspirin (Aspirin Chewable) 81 mg PO DAILY [facility] Last Admin: 11/16/16 10:47 Dose: 81 mg Atorvastatin Calcium (Lipitor) 40 mg PO DIN [facility] Last Admin: 11/15/16 17:15 Dose: 40 mg Carvedilol (Coreg) 3.125 mg PO BID [facility] Last Admin: 11/16/16 10:48 Dose: 3.125 mg Collagenase (Santyl) 0 gm TOP DAILY [facility] Last Admin: 11/16/16 10:45 Dose: 1 applic Ergocalciferol (Drisdol 50,000 Intl Units Cap) 1 cap PO Q7D [facility] Last Admin: 11/12/16 12:08 Dose: 1 cap Ferrous Sulfate (Feosol) 324 mg PO TID [facility] Last Admin: 11/16/16 10:47 Dose: 324 mg Furosemide (Lasix) 80 mg IVP BID [facility] Last Admin: 11/16/16 11:17 Dose: 80 mg Heparin Sodium (Porcine) (Heparin) 5,000 units SC Q12 [facility] PRN Reason: Protocol Last Admin: 11/16/16 10:48 Dose: 5,000 units Hydralazine HCl (Apresoline) 50 mg PO QID [facility] Ceftriaxone Sodium (Rocephin 1 Gram Ivpb) 1 gm in 100 mls @ 100 mls/hr IVPB DAILY [facility] PRN Reason: Protocol Last Admin: 11/16/16 10:46 Dose: 100 mls/hr Insulin Human Regular (Humulin R Low) 0 units SC ACHS [facility] PRN Reason: Protocol Last Admin: 11/16/16 11:30 Dose: 1 units Metolazone (Zaroxolyn) 5 mg PO BID [facility] Last Admin: 11/16/16 10:54 Dose: 5 mg Multi-Ingredient Cream (Hydrocerin Cream) 0 ea TOP DAILY [facility] Last Admin: 11/16/16 10:49 Dose: 1 applic Pantoprazole Sodium (Protonix Ec Tab) 40 mg PO 0600 [facility] Last Admin: 11/16/16 06:17 Dose: 40 mg Spironolactone (Aldactone) 25 mg PO BID [facility] Last Admin: 11/16/16 11:00 Dose: 25 mg Tamsulosin HCl (Flomax) 0.4 mg PO BID [facility] Last Admin: 11/16/16 10:54 Dose: 0.4 mg Zinc Sulfate (Zinc Sulfate 220 Mg Cap) 220 mg PO DAILY [facility] Last Admin: 11/16/16 10:54 Dose: 220 mg - Labs Labs: 11/16/16 06:10 11/16/16 06:10 PT 15.4 Seconds (9.9-11.8) H 11/09/16 07:10 INR 1.43 (0.93-1.08) H 11/09/16 07:10 APTT 29.0 Seconds (23.7-30.8) 11/08/16 11:30 - Additional Findings Additional findings: Constitutional: a&o x 4, NAD Head and Neck: neck supple, no jvd, trachea midline, carotid midline, no cervical/head mass Eyes: nai, nonicteric sclera, eom intact ENT: auditory acuity grossly intact, throat not congested, no nasal deformity Cardio: rrr, no m/r/g, no carotid bruit, nml s1, s2 Pulm: no accessory muscle use, equal nml breath sounds bilaterally, ctab MSK: +Mild TTP in the lumbar area on the left Extremities- Right UE PICC line in place Abd: s/nt/nd, nbs x 4 q, no palpable masses Derm: no rashes, no ulcers, no lesions Extr: 2+ pitting edema; malodorous feet; onychomycosis. Bandages just changed by Podiatry. Pt's legs and arms look much better today. 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 CHF details- Echocardiogram LVEF - 22.4%, 4 chamber dilation, CXR reviewed- [place] [address], cannot tolerate milronone drip - Patient started on lasix 80mg IVP q12h, aldactone 25mg PO BID, metolzone 5mg BID, hydralazine 50mg PO QID, coreg 3.125mg PO BID - Strict I's and O's - Daily Weight - HOB > 45' - Cardiology consulted -appreciate recs - Nephrology consult- get patient to be euvolemic then assess for secondary causes of hypertension CKD details- stage 4, 2/2 to diabetes and HTN; s/p Aransep 60 mcg (11/12) - Nephrology on board- appreciate recs - As per recs: No acute need for renal replacement therapy at this time, dialysis could be anticipated in near future, abstain from NSAIDs completely, continue with diuresis with IV lasix 80 mg bid and oral metolazone 5 mg bid while in-house, Weekly Vit D 50,000 unit x 8 doses. - Monitor Input/Output, daily weights and renal function with basic metabolic panel - Glycemic control - Diuresis is working very well: patient output increased over last 2 days Urinary retention details- mortensen in place, draining yellow urine with sediment present in mortensen tube - renal U/S ordered and reviewed- nephrolithasis - PSA pending - will d/c mortensen for 6 hour trial Left toe abscess, Right foot infection details- osteomyelitis has been ruled out by podo - ID C/s: Continue Rocephin, currently on day 4 since the Serratia in the wound is sensitive (11/12/16), plan on continue Abx for 10 days total pending ID rec - Podiatry C/s: Right - Right lower extremity cleansed with Sterile normal saline. Santyl and DSD applied to ulcerations bilateral malleolus Left - Left foot cleansed with Sterile normal saline and dressed with Santyl and DSD MRI (-) osteomyelitis Left CWX: Serratia Marcescens b/l feet xray negative for osteomyelitis Ascities details- fluid was seen on the renal u/s in Gardiner's pouch - abdominal ultrasound pending - consult IR for possible pericentesis, diagnostic vs therapeutic - no need for SBP prophylaxis DM type 2 - Consistent carb/heart healthy diet - Fingersticks ACHS - Humulin low dose ISS - Oral agents held Chronic Anemia details- curent HgB is 9.3 from 9.7 yesterday, was 7.7 on and was given 2 units pRBCs - Heme/Onc consulted- appreciate recs: - Multiple Myeloma has been ruled out- total lilli/prince is elevated but ratio is normal unlikely MM - Cont Feosol - FOBT pending - HIV and Hepatitis neg - Physical therapy History of Hypertension - continue lasix and aldactone YASMIN - CPAP at night; titrate to maintain O2sat > 90% Low back pain - acetaminophen prn GI/DVT Prophylaxis -Protonix/Heparin SC Dispo: TCU vs [facility] vs Home Consider TCU in the next two days to regain strength and to continue diuresis. Follow up with PMD outpatient. Follow up with Dr. Carreon outpatient Follow up with Dr. Glover seen there for pain. Patient seen and case discussed with attending, Dr. Ley <Chris Ley - Last Filed: 01/01/17 16:40> Objective - Vital Signs/Intake and Output Vital Signs (last 24 hours): Temp Pulse Resp BP Pulse Ox 98.4 F 73 20 117/67 100 11/20/16 08:25 11/20/16 13:21 11/20/16 08:25 11/20/16 13:21 11/20/16 08:25 - Labs Labs: 11/20/16 06:50 11/20/16 06:50 PT 14.7 Seconds (9.9-11.8) H 11/18/16 09:50 INR 1.36 (0.93-1.08) H 11/18/16 09:50 APTT 31.6 Seconds (23.7-30.8) H 11/18/16 09:50 Attending/Attestation - Attestation I have personally seen and examined this patient.: Yes I have fully participated in the care of the patient.: Yes I have reviewed all pertinent clinical information, including history, physical exam and plan: Yes Notes (Text): 01/01/17 16:40 Medical record note made by the resident after discussion with my direction and input after the patient was personally seen and examined by me. I have reviewed the chart and agree that the record accurately reflects by personal performance of the history, physical exam, data review, and medical decision-making, in the course for the patient. I have also personally directed the plan of care.
--- NOTE | 2016-11-16 13:55 | CP.PCM.PN ---
Subjective - Date & Time of Evaluation Date of Evaluation: 11/16/16 Time of Evaluation: 13:50 - Subjective Subjective: Follow up Nephrology Consultation: Assessment: Stable Acute Kidney Injury (N17.9) possibly due to Chronic NSAIDs use. also contribution by his severe CHF (cardio-renal) Fluid overload, Anasarca with CHF exacerbation Diabetic chronic Kidney Disease (E11.22) Hypertensive Chronic Kidney Disease (I12.9) Chronic Kidney Disease (N18.9) Stage with 200 proteinuria (R80.9) possibly due to his long standing hx of HTN, atherosclerotic vasc disease Anemia (D64.9), HTN (I12.9), DM, CHF, Morbid obesity, YASMIN on CPAP, back pain, Hypernatremia, heel ulcers, ventral hernia, ascites Vit D def and secondary hyperparathyroidism Plan No acute need for renal replacement therapy at this time. Patient aware that due to his advanced renal insuff, CHF and fluid overload, dialysis could be anticipated in near future. Pt advised to abstain from NSAIDs completely. continue with diuresis with IV lasix 80 mg bid and oral metolazone 5 mg bid while in-house. he had UOP 5 L yesterday. Hypertension control with meds as ordered. Patient on RAAS lei with aldactone Agree with oral iron supplements. s/p Aransep 60 mcg (11/12). PRBC as needed. continue with weekly Vit D 50,000 unit x 8 doses. also started on flomax 0.4 mg/ day. pt seen by Monitor Input/Output, daily weights and renal function with basic metabolic panel wound care. Dose meds/antibiotics for reduced GFR. Avoid fleets enema/magnesium based laxatives. Avoid nephrotoxins/NSAIDs/ iodinated contrast (unless needed emergently) Glycemic control Further work up/management as per primary team Thanks for allowing me to participate in care of your patient. Will follow patient with you. 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 He has been taking NSAIDs as Advil (3 tab) and alleve (2 tab) per day on most days for last few weeks to control his pain. Subjective: Denies chest pain, palpitation, shortness of breath, says legs and arms swelling feels better had mortensen placed by . ROS: Constitutional Symptoms: Denies fever. No chills. had gained weight over time Eyes: denies change in vision, denies watery eyes, denies double vision Ears/Nose/Mouth/Throat: Denies Abnormal Taste. No Bad breath no Bad Taste. Cardiovascular: No chest pain. There is no shortness of breath at present. No palpitations. Pulmonary: No shortness of breath no cough now. Gastrointestinal: denies abdominal pain No nausea. No vomiting. Denies change in bowel habits. Denies Bleeding Genitourinary: has mortensen now Neurological: Denies headaches. No dizziness. Denies loss of balance. c/o overall weakness, denies tingling/numbness Dermatological: No Rash or Bruising but had heel/feet ulcers. Psychiatric: Denies Anxiety. No depression. Denies hallucinations. Rheumatological: c/o low back pain. Denies Joint swelling Endocrine: c/o tiredness/Fatigue denies Heat/Cold Intolerance. All other negative Physical Examination: General Appearance: Comfortable, in no acute respiratory distress, co-operative . morbidly Obese Vitals reviewed and noted as below Head; Atraumatic, normocephalic ENT: no ulcers no thrush. Tongue is midline. Oropharynx: no rash or ulcers. EYES: Pupils are equal, round and reactive to light accommodation. Eye muscles and extraocular movement intact. Sclera is anicteric. Neck; supple no lymphadenopathy, no thyromegaly or bruit Lungs: Normal respiratory rate/effort. Breath sounds bilateral equal and clear except somewhat decreased at bases Heart: Normal rate. s1s2 normal. No rub or gallop. Extremities: 3+ edema with chronic venous stasis changes in legs and skin very thickened to touch. No varicose veins. both heels dressed. has thigh edema/ Anasarca Neurological: Patient is alert, awake and oriented to person, place and time. No focal deficit. Strength bilateral appropriate and equal Skin: Warm and dry. Normal turgor. No rash. Palpitation: Normal elasticity for age Abdomen: Abdomen is distended. has midline ventral hernia. has abdomen wall edema. Bowel sounds +. There is no abdominal tenderness, no guarding/rigidity. Unable to examine/appreciate organomegaly due to obesity/edema and distension of abdomen Psych: normal insight and normal affect/mood MSK: no joint tenderness or swelling. Digits and nails normal, no deformity : kidney or bladder not palpable but exam very limited. has scrotal/penile edema. has mortensen Labs/imaging/EKG reviewed. Past medical history, past surgical history, family history, social history, allergy reviewed and noted as below Family hx: no hx of CKD. Rest non-contributory Work up: UA: no blood or prot Phos 3.5 Mg 2.5 Albumin 3 TSAT 10% Ferritin 101 CXr: pulm congestion Echo: EF 22% Elliott/lambda ratio Normal Renal and bladder sono: PVR 438 ml but also had ascites hence PVR can be false + elevated on sonogram. Vit D 13 PTH 120 Objective - Vital Signs/Intake and Output Vital Signs (last 24 hours): Temp Pulse Resp BP Pulse Ox 98.2 F 72 20 131/77 99 11/16/16 08:53 11/16/16 08:53 11/16/16 08:53 11/16/16 11:17 11/16/16 08:53 Intake and Output: 11/16/16 11/16/16 06:59 18:59 Intake Total 1036 Output Total 3450 Balance -2414 - Medications Medications: Current Medications Acetaminophen (Tylenol 325mg Tab) 650 mg PO Q4H PRN PRN Reason: Pain, moderate (4-7) Last Admin: 11/15/16 22:46 Dose: 650 mg Ascorbic Acid (Vitamin C 500 Mg Tab) 500 mg PO DAILY [facility] Last Admin: 11/16/16 10:48 Dose: 500 mg Aspirin (Aspirin Chewable) 81 mg PO DAILY [facility] Last Admin: 11/16/16 10:47 Dose: 81 mg Atorvastatin Calcium (Lipitor) 40 mg PO DIN [facility] Last Admin: 11/15/16 17:15 Dose: 40 mg Carvedilol (Coreg) 3.125 mg PO BID [facility] Last Admin: 11/16/16 10:48 Dose: 3.125 mg Collagenase (Santyl) 0 gm TOP DAILY [facility] Last Admin: 11/16/16 10:45 Dose: 1 applic Ergocalciferol (Drisdol 50,000 Intl Units Cap) 1 cap PO Q7D [facility] Last Admin: 11/12/16 12:08 Dose: 1 cap Ferrous Sulfate (Feosol) 324 mg PO TID [facility] Last Admin: 11/16/16 10:47 Dose: 324 mg Furosemide (Lasix) 80 mg IVP BID [facility] Last Admin: 11/16/16 11:17 Dose: 80 mg Heparin Sodium (Porcine) (Heparin) 5,000 units SC Q12 [facility] PRN Reason: Protocol Last Admin: 11/16/16 10:48 Dose: 5,000 units Hydralazine HCl (Apresoline) 50 mg PO QID [facility] Ceftriaxone Sodium (Rocephin 1 Gram Ivpb) 1 gm in 100 mls @ 100 mls/hr IVPB DAILY [facility] PRN Reason: Protocol Last Admin: 11/16/16 10:46 Dose: 100 mls/hr Insulin Human Regular (Humulin R Low) 0 units SC ACHS [facility] PRN Reason: Protocol Last Admin: 11/16/16 11:30 Dose: 1 units Metolazone (Zaroxolyn) 5 mg PO BID [facility] Last Admin: 11/16/16 10:54 Dose: 5 mg Multi-Ingredient Cream (Hydrocerin Cream) 0 ea TOP DAILY [facility] Last Admin: 11/16/16 10:49 Dose: 1 applic Pantoprazole Sodium (Protonix Ec Tab) 40 mg PO 0600 [facility] Last Admin: 11/16/16 06:17 Dose: 40 mg Spironolactone (Aldactone) 25 mg PO BID [facility] Last Admin: 11/16/16 11:00 Dose: 25 mg Tamsulosin HCl (Flomax) 0.4 mg PO BID [facility] Last Admin: 11/16/16 10:54 Dose: 0.4 mg Zinc Sulfate (Zinc Sulfate 220 Mg Cap) 220 mg PO DAILY [facility] Last Admin: 11/16/16 10:54 Dose: 220 mg - Labs Labs: 11/16/16 06:10 11/16/16 06:10 PT 15.4 Seconds (9.9-11.8) H 11/09/16 07:10 INR 1.43 (0.93-1.08) H 11/09/16 07:10 APTT 29.0 Seconds (23.7-30.8) 11/08/16 11:30
--- NOTE | 2016-11-16 13:56 | MRI ---
PROCEDURE: MRI of the right foot without contrast HISTORY: R/O OSETO COMPARISON: TECHNIQUE: MRI of the right foot was performed in multiple planes using multiple pulse sequences. FINDINGS: The bone marrow signal intensity is normal with no evidence of osteomyelitis. There is a retracted tear of the distal Achilles tendon which is 3.4 cm from the site of insertion on the calcaneus. There is marked thickening of the tendon consistent with chronic tendinopathy. Findings are best seen on image 13 series 4. There is also severe thickening and abnormal signal intensity in the peroneus brevis tendon consistent with tendinopathy. There is diffuse subcutaneous edema. Multiple small juxta-articular erosive changes are seen in the navicular cuboid and cuneiforms. This is consistent with an erosive arthritis. The report concurs with the preliminary [facility] report IMPRESSION: Retracted tear and tendinopathy of the distal Achilles tendon. Severe tendinopathy of the peroneus brevis tendon. Diffuse subcutaneous edema consistent with cellulitis or passive edema. No evidence of osteomyelitis
--- NOTE | 2016-11-16 14:15 | US ---
PROCEDURE: Ultrasound of the Kidneys HISTORY: new onset urinary retention COMPARISON: None available. TECHNIQUE: Grayscale imaging was performed. FINDINGS: RIGHT KIDNEY: Measures: 12.5 cm. Normal in size, contour and echogenicity. No stone, solid mass lesion or hydronephrosis visualized. LEFT KIDNEY: Measures: 10.0 cm. Normal in size, contour and echogenicity. No stone, solid mass lesion or hydronephrosis visualized. OTHER FINDINGS: Note is made of moderate fluid in the Morison's pouch. IMPRESSION: No hydronephrosis or nephrolithiasis. Ascites.
--- NOTE | 2016-11-16 14:50 | CP.PCM.PN ---
<Archana Rosales - Last Filed: 11/16/16 14:46> Subjective - Date & Time of Evaluation Date of Evaluation: 11/16/16 Time of Evaluation: 14:46 - Subjective Subjective: Rounded with Dr. Contreras 65 yo male patient was seen at bedside this afternoon concerning open ulcerations to Right bimalleolar aspect and Left dorsal aspect of 1st ray. Patient denies of any acute overnight distress. Dressing to bilateral lower extremity appears cdi. AAO x3. Patient denies of any N/V/F/C or SOB today Patient was educated on importance of putting heel pads on. Patient refuses to wear them against medical advice. Objective - Vital Signs/Intake and Output Vital Signs (last 24 hours): Temp Pulse Resp BP Pulse Ox 98.2 F 72 20 131/77 99 11/16/16 08:53 11/16/16 08:53 11/16/16 08:53 11/16/16 11:17 11/16/16 08:53 Intake and Output: 11/16/16 11/16/16 06:59 18:59 Intake Total 1036 480 Output Total 3450 900 Balance -2414 -420 - Medications Medications: Current Medications Acetaminophen (Tylenol 325mg Tab) 650 mg PO Q4H PRN PRN Reason: Pain, moderate (4-7) Last Admin: 11/15/16 22:46 Dose: 650 mg Ascorbic Acid (Vitamin C 500 Mg Tab) 500 mg PO DAILY [facility] Last Admin: 11/16/16 10:48 Dose: 500 mg Aspirin (Aspirin Chewable) 81 mg PO DAILY [facility] Last Admin: 11/16/16 10:47 Dose: 81 mg Atorvastatin Calcium (Lipitor) 40 mg PO DIN [facility] Last Admin: 11/15/16 17:15 Dose: 40 mg Carvedilol (Coreg) 3.125 mg PO BID [facility] Last Admin: 11/16/16 10:48 Dose: 3.125 mg Collagenase (Santyl) 0 gm TOP DAILY [facility] Last Admin: 11/16/16 10:45 Dose: 1 applic Ergocalciferol (Drisdol 50,000 Intl Units Cap) 1 cap PO Q7D [facility] Last Admin: 11/12/16 12:08 Dose: 1 cap Ferrous Sulfate (Feosol) 324 mg PO TID [facility] Last Admin: 11/16/16 14:45 Dose: 324 mg Furosemide (Lasix) 80 mg IVP BID [facility] Last Admin: 11/16/16 11:17 Dose: 80 mg Heparin Sodium (Porcine) (Heparin) 5,000 units SC Q12 [facility] PRN Reason: Protocol Last Admin: 11/16/16 10:48 Dose: 5,000 units Hydralazine HCl (Apresoline) 50 mg PO QID [facility] Last Admin: 11/16/16 14:45 Dose: 50 mg Ceftriaxone Sodium (Rocephin 1 Gram Ivpb) 1 gm in 100 mls @ 100 mls/hr IVPB DAILY [facility] PRN Reason: Protocol Last Admin: 11/16/16 10:46 Dose: 100 mls/hr Insulin Human Regular (Humulin R Low) 0 units SC ACHS [facility] PRN Reason: Protocol Last Admin: 11/16/16 11:30 Dose: 1 units Metolazone (Zaroxolyn) 5 mg PO BID [facility] Last Admin: 11/16/16 10:54 Dose: 5 mg Multi-Ingredient Cream (Hydrocerin Cream) 0 ea TOP DAILY [facility] Last Admin: 11/16/16 10:49 Dose: 1 applic Pantoprazole Sodium (Protonix Ec Tab) 40 mg PO 0600 [facility] Last Admin: 11/16/16 06:17 Dose: 40 mg Spironolactone (Aldactone) 25 mg PO BID [facility] Last Admin: 11/16/16 11:00 Dose: 25 mg Tamsulosin HCl (Flomax) 0.4 mg PO BID [facility] Last Admin: 11/16/16 10:54 Dose: 0.4 mg Zinc Sulfate (Zinc Sulfate 220 Mg Cap) 220 mg PO DAILY [facility] Last Admin: 11/16/16 10:54 Dose: 220 mg - Labs Labs: 11/16/16 06:10 11/16/16 06:10 PT 15.4 Seconds (9.9-11.8) H 11/09/16 07:10 INR 1.43 (0.93-1.08) H 11/09/16 07:10 APTT 29.0 Seconds (23.7-30.8) 11/08/16 11:30 - Constitutional Appears: Well, Non-toxic, No Acute Distress - Head Exam Head Exam: ATRAUMATIC - Extremities Exam Additional comments: bilateral lower extremities exam DERM: Right - Open ulceration noted to either sides of malleolus each measuring 1cm x 1cmx 0.2cm with 100% fibrotic bases. Mild serous drainage is noted from both wounds. No purulent discharge is noted. No sign of acute infections is noted. No PTB Left - Open ulceration to dorsal aspect of Left 1st metatarsal measuring 7cm x 2cm x 0.2cm with 100% fibrotic base. No drainage is noted. No purulent discharge noted. No mal-odor is noted. No erythema around the wound is noted. No maceration noted to the wound edges. No sign of acute infections is noted. No PTB VASC: Non-palpable DP and PT noted bilaterally. PARTS PERSON less than 3 seconds to all digits noted. ORTHO: Mild pain induced on palpation to ulcerations. Decreased ROM to joints distal to ankle NEURO: Gross sensation diminished to distal aspect of bilateral feet, tested with monofilament 9 points plantar feet - Neurological Exam Neurological Exam: Alert, Awake, Oriented x3 - Psychiatric Exam Psychiatric exam: Normal Affect, Normal Mood - Skin Skin Exam: Normal Color, Warm Assessment and Plan - Assessment and Plan (Free Text) Assessment: 65 yo male patient presents with open ulcerations to bilateral lower extremities Perez Stage ii Plan: Patient was seen, evaluated Rounded with attending Dr. Contreras Labs and vitals reviewed Right - Right lower extremity cleansed with Sterile normal saline. Santyl and Optifoam Left - Left foot cleansed with Sterile normal saline and dressed with Silvadene and DSD Risks of not using Heel pads stressed to the patient including development of heel pressure ulcerations which can lead to amputation Podiatry plans for bedside wound debridement with curette tomorrow (Bilateral) MRI (-)OM Left WCX :Serratia Marcescens Podiatry will follow in-house <Funmi Contreras - Last Filed: 11/22/16 19:45> Objective - Vital Signs/Intake and Output Vital Signs (last 24 hours): Temp Pulse Resp BP Pulse Ox 98.4 F 73 20 117/67 100 11/20/16 08:25 11/20/16 13:21 11/20/16 08:25 11/20/16 13:21 11/20/16 08:25 - Labs Labs: 11/20/16 06:50 11/20/16 06:50 PT 14.7 Seconds (9.9-11.8) H 11/18/16 09:50 INR 1.36 (0.93-1.08) H 11/18/16 09:50 APTT 31.6 Seconds (23.7-30.8) H 11/18/16 09:50 Attending/Attestation - Attestation I have personally seen and examined this patient.: Yes I have fully participated in the care of the patient.: Yes I have reviewed all pertinent clinical information, including history, physical exam and plan: Yes
--- NOTE | 2016-11-16 15:42 | US ---
PROCEDURE: Left upper extremity venous ultrasound HISTORY: Arm pain and swelling. Evaluate for deep venous thrombosis. PHYSICIAN(S): Kamari Mohan MD. FINDINGS: The exam is somewhat limited by edema. The visualized leftinternal jugular vein is sonographically normal and compressible. No evidence of obstruction or thrombus is seen. The visualized segments of the left subclavian vein are patent with normal waveforms. No sonographic evidence of obstruction or thrombosis is seen. The visualized deep venous system of the proximal leftupper extremity is sonographically normal and compressible. IMPRESSION: 1. No sonographic evidence for deep venous thrombosis in the visualized segments of the left upper extremity.
[2016-11-16] MEDS: Cefpodoxime (Vantin) 100 mg Tab PO SCH (22:06)
--- NOTE | 2016-11-17 01:14 | PN ---
DATE: 11/16/2016 SUBJECTIVE: The patient is in bed, in no acute distress, nontoxic. PHYSICAL EXAMINATION: VITAL SIGNS: Temperature is 97, blood pressure is 140/70, respiratory rate 16. HEENT: Unremarkable. NECK: Supple. LUNGS: Decreased breath sounds. HEART: Sounds normal S1 and S2. ABDOMEN: Soft. LABORATORY DATA: Reveals white count of 8.7, hemoglobin of 9, platelets of 147. Christies reveal the BUN of 117, creatinine of 3.4. Urinalysis is noted, and microbiology reveals Serratia marcescens sensitive to ceftriaxone. THE PATIENT HAS NO KNOWN ALLERGIES. The patient had an ultrasound of the upper extremity yesterday. No evidence of DVT, so of the renal ultrasound no hydronephrosis or nephrolithiasis. Repeat urine cultures are negative. The patient is on ceftriaxone. ASSESSMENT AND PLAN: This is a 65-year-old male with Serratia, foot infection, skin and skin soft tissue infections, congestive heart failure, renal failure, diabetes mellitus, morbid obesity, BMI of 40 with Serratia right foot infection day #6, ceftriaxone. MRI result is negative for osteomyelitis. We will discontinue the ceftriaxone and complete with p.o. Vantin at 100 mg p.o. b.i.d. x7. Charlie Taylor MD
[2016-11-17 06:44] LABS: ALB/GLOB RATIO 0.6 (1.1-1.8); BILIRUBIN,TOTAL 1.3 mg/dL (0.2-1.3); CALCIUM 8.8 mg/dL (8.4-10.5); POTASSIUM 4.5 mmol/L (3.6-5.0); TOTAL PROTEIN 7.5 g/dL (5.8-8.3)
[2016-11-17 06:50] LABS: BASO # 0.01 K/mm3 (0.0-2.0); BASO % 0.1 % (0.0-3.0); EOS # 0.4 (0.0-0.7); EOS % 4.8 % (1.5-5.0); GRAN # 7.75 (1.4-6.5); GRAN % 84.5 % (50.0-68.0); LYMPH # 0.5 (1.2-3.4); MEAN CELL VOLUME 89.1 fl (80.0-105.0); MEAN CORPUSCULAR HEMOGLOBIN 28.7 pg (25.0-35.0); MEAN CORPUSCULAR HGB CONC 32.3 g/dl (31.0-37.0); MEAN PLATELET VOLUME 10.4 fl (7.0-11.0); MONO # 0.5 (0.1-0.6); MONO % 5.6 % (1.0-6.0); RED CELL DISTRIBUTION WIDTH 18.4 % (11.5-14.5); WHITE BLOOD COUNT 9.2 10^3/ul (4.5-11.0)
[2016-11-17] MEDS: Pantoprazole 40 mg EC Tab PO SCH (07:30)
[2016-11-17] MEDS: Insulin Reg-LOW-Coverage SC SCH ×4 (07:42→22:00)
--- NOTE | 2016-11-17 09:42 | US ---
HISTORY: Ascites COMPARISON: None. TECHNIQUE: Grayscale imaging was performed. FINDINGS: LIVER: Measures 23.0 cm. The liver has a micronodular contour and coarse echotexture. No mass. No intrahepatic bile duct dilatation. GALLBLADDER: Mild gallbladder wall thickening is likely related to ascites. No gallstones. COMMON BILE DUCT: Measures 6.6 mm. No stones. No dilatation. PANCREAS: Obscured by excessive bowel gas. RIGHT KIDNEY: Measures 10.6cm. Normal echogenicity. No calculus, mass, or hydronephrosis. LEFT KIDNEY: Measures 10.5cm. Normal echogenicity. No calculus, mass, or hydronephrosis. SPLEEN: There is mild splenomegaly. The spleen measures 14.1. AORTA: No aneurysmal dilatation. IVC: Unremarkable. OTHER FINDINGS: There is large abdominal ascites. IMPRESSION: 1. Mild hepatomegaly. Findings are concerning for cirrhosis of liver. 2. Mild splenomegaly. 3. Large abdominal ascites.
[2016-11-17] MEDS: Cefpodoxime (Vantin) 100 mg Tab PO SCH ×2 (09:54→22:01)
[2016-11-17] MEDS: Hydrocerin(120 gm) TOP SCH (09:56)
[2016-11-17] MEDS: metOLazone 5 MG TAB PO SCH ×2 (09:56→17:11)
[2016-11-17] MEDS: Collagenase 250 Units/gm Ointment(30 gm) TOP SCH (09:57)
[2016-11-17] MEDS: Prostat 15 g packet GT SCH ×2 (09:57→17:12)
--- NOTE | 2016-11-17 11:05 | CP.PCM.PN ---
<Ck Doty - Last Filed: 11/17/16 11:02> Subjective - Date & Time of Evaluation Date of Evaluation: 11/17/16 Time of Evaluation: 07:40 - Subjective Subjective: Patient seen and examined. No acute events overnight. C/o of having mildly increased difficulty breathing this AM but is not SOB at rest. States that the swelling in his arms and legs have significantly improved since admission. Currently denies f/c/cp/SOB/abdominal pain/n/v/diarrhea/constipation/ urinary symptoms. Objective - Vital Signs/Intake and Output Vital Signs (last 24 hours): Temp Pulse Resp BP Pulse Ox 97.9 F 74 20 128/77 96 11/17/16 08:37 11/17/16 09:55 11/17/16 08:37 11/17/16 09:55 11/17/16 08:37 Intake and Output: 11/17/16 11/17/16 06:59 18:59 Intake Total 1380 Output Total 1240 Balance 140 - Medications Medications: Current Medications Acetaminophen (Tylenol 325mg Tab) 650 mg PO Q4H PRN PRN Reason: Pain, moderate (4-7) Last Admin: 11/15/16 22:46 Dose: 650 mg Ascorbic Acid (Vitamin C 500 Mg Tab) 500 mg PO DAILY [facility] Last Admin: 11/17/16 09:54 Dose: 500 mg Aspirin (Aspirin Chewable) 81 mg PO DAILY [facility] Last Admin: 11/17/16 09:56 Dose: 81 mg Atorvastatin Calcium (Lipitor) 40 mg PO DIN [facility] Last Admin: 11/16/16 17:41 Dose: 40 mg Carvedilol (Coreg) 3.125 mg PO BID [facility] Last Admin: 11/17/16 09:55 Dose: 3.125 mg Cefpodoxime Proxetil (Vantin) 100 mg PO Q12 [facility] PRN Reason: Protocol Stop: 11/23/16 22:01 Last Admin: 11/17/16 09:54 Dose: 100 mg Collagenase (Santyl) 0 gm TOP DAILY [facility] Last Admin: 11/17/16 09:57 Dose: 1 applic Ergocalciferol (Drisdol 50,000 Intl Units Cap) 1 cap PO Q7D [facility] Last Admin: 11/12/16 12:08 Dose: 1 cap Ferrous Sulfate (Feosol) 324 mg PO TID [facility] Last Admin: 11/17/16 09:54 Dose: 324 mg Furosemide (Lasix) 80 mg IVP BID [facility] Last Admin: 11/17/16 09:55 Dose: 80 mg Hydralazine HCl (Apresoline) 50 mg PO QID [facility] Last Admin: 11/17/16 10:00 Dose: 50 mg Insulin Human Regular (Humulin R Low) 0 units SC ACHS [facility] PRN Reason: Protocol Last Admin: 11/17/16 07:42 Dose: 1 units Metolazone (Zaroxolyn) 5 mg PO BID [facility] Last Admin: 11/17/16 09:56 Dose: 5 mg Multi-Ingredient Cream (Hydrocerin Cream) 0 ea TOP DAILY [facility] Last Admin: 11/17/16 09:56 Dose: 1 applic Pantoprazole Sodium (Protonix Ec Tab) 40 mg PO 0600 [facility] Last Admin: 11/17/16 07:30 Dose: 40 mg Spironolactone (Aldactone) 25 mg PO BID [facility] Last Admin: 11/17/16 09:56 Dose: 25 mg Tamsulosin HCl (Flomax) 0.4 mg PO BID [facility] Last Admin: 11/17/16 09:54 Dose: 0.4 mg Zinc Sulfate (Zinc Sulfate 220 Mg Cap) 220 mg PO DAILY [facility] Last Admin: 11/17/16 09:54 Dose: 220 mg - Labs Labs: 11/17/16 06:25 11/17/16 06:25 PT 15.4 Seconds (9.9-11.8) H 11/09/16 07:10 INR 1.43 (0.93-1.08) H 11/09/16 07:10 APTT 29.0 Seconds (23.7-30.8) 11/08/16 11:30 - Additional Findings Additional findings: Constitutional: a&o x 4, NAD Head and Neck: neck supple, no jvd, trachea midline, carotid midline, no cervical/head mass Eyes: nai, nonicteric sclera, eom intact ENT: auditory acuity grossly intact, throat not congested, no nasal deformity Cardio: rrr, no m/r/g, no carotid bruit, nml s1, s2 Pulm: no accessory muscle use, equal nml breath sounds bilaterally, ctab MSK: +Mild TTP in the lumbar area on the left Extremities- Right UE PICC line in place Abd: s/nt/nd, nbs x 4 q, no palpable masses Derm: redness noted on medial aspect of the left upper extremity Extr: 4+ pitting edema; malodorous feet; onychomycosis. Bandages just changed by Podiatry. 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 CHF details- Echocardiogram LVEF - 22.4%, 4 chamber dilation, CXR reviewed- [place] [address], cannot tolerate milronone drip - Patient started on lasix 80mg IVP q12h, aldactone 25mg PO BID, metolzone 5mg BID, hydralazine 50mg PO QID, coreg 3.125mg PO BID - Strict I's and O's - Daily Weight - HOB > 45' - Cardiology consulted -appreciate recs - Speak with Dr. Watt regarding potential AICD placement - Nephrology consult- get patient to be euvolemic then assess for secondary causes of hypertension CKD details- stage 4, 2/2 to diabetes and HTN; s/p Aransep 60 mcg (11/12), BUN noted to increase to 125 - Nephrology on board- appreciate recs; As per recs: No acute need for renal replacement therapy at this time, dialysis could be anticipated in near future, abstain from NSAIDs completely, continue with diuresis with IV lasix 80 mg bid and oral metolazone 5 mg bid while in-house, Weekly Vit D 50,000 unit x 8 doses. - Monitor Input/Output, daily weights and renal function with basic metabolic panel - Glycemic control - Diuresis is working very well: patient output increased over last 2 days Urinary retention details- mortensen in place, draining yellow urine with sediment present in mortensen tube - renal U/S ordered and reviewed- nephrolithasis - PSA pending Left toe abscess, Right foot infection details- osteomyelitis has been ruled out by podo - ID C/s: Continue Rocephin, currently on day 4 since the Serratia in the wound is sensitive (11/12/16), plan on continue Abx for 10 days total pending ID rec - Podiatry C/s: Right - Right lower extremity cleansed with Sterile normal saline. Santyl and DSD applied to ulcerations bilateral malleolus Left - Left foot cleansed with Sterile normal saline and dressed with Santyl and DSD MRI (-) osteomyelitis Left CWX: Serratia Marcescens b/l feet xray negative for osteomyelitis Ascities details- fluid was seen on the renal u/s in Gardiner's pouch - abdominal ultrasound pending - consult IR for possible pericentesis, diagnostic vs therapeutic, fluid off may help with patients SOB - patient started on cefpodaxime (vantin) as per ID Hypoalbuminemia - albumin of 2.9 noted - increase protein in diet - will repeat albumin Right Upper Extremity Rash - redness noted on the medial aspect - patient is currently on cefpodoxamine as per ID DM type 2 - Consistent carb/heart healthy diet - Fingersticks ACHS - Humulin low dose ISS - Oral agents held Chronic Anemia details- curent HgB is 9.3 from 9.7 yesterday, was 7.7 on and was given 2 units pRBCs - Heme/Onc consulted- appreciate recs: - Multiple Myeloma has been ruled out- total lilli/prince is elevated but ratio is normal unlikely MM - Cont Feosol - FOBT pending - HIV and Hepatitis neg - Physical therapy History of Hypertension - continue lasix and aldactone - cardio started patient on hydralazine YASMIN - CPAP at night; titrate to maintain O2sat > 90% Low back pain - acetaminophen prn GI/DVT Prophylaxis -Protonix/Heparin SC Dispo: TCU vs [facility] vs Home Consider TCU in the next two days to regain strength and to continue diuresis. Follow up with PMD outpatient. Follow up with Dr. Carreon outpatient Follow up with Dr. Glover seen there for pain. Patient seen and case discussed with attending, Dr. Faith. <Ori Faith - Last Filed: 12/16/16 08:43> Objective - Vital Signs/Intake and Output Vital Signs (last 24 hours): Temp Pulse Resp BP Pulse Ox 98.4 F 73 20 117/67 100 11/20/16 08:25 11/20/16 13:21 11/20/16 08:25 11/20/16 13:21 11/20/16 08:25 - Labs Labs: 11/20/16 06:50 11/20/16 06:50 PT 14.7 Seconds (9.9-11.8) H 11/18/16 09:50 INR 1.36 (0.93-1.08) H 11/18/16 09:50 APTT 31.6 Seconds (23.7-30.8) H 11/18/16 09:50 Attending/Attestation - Attestation I have personally seen and examined this patient.: Yes I have fully participated in the care of the patient.: Yes I have reviewed all pertinent clinical information, including history, physical exam and plan: Yes Notes (Text): 12/16/16 08:43 Medical record note made by the resident after discussion with my ddirection after patient seen and examined by me. The chart accurately reflects my history , physical, data review and plan.
--- NOTE | 2016-11-17 13:40 | CP.PCM.PN ---
<Archana Rosales - Last Filed: 11/17/16 13:36> Subjective - Date & Time of Evaluation Date of Evaluation: 11/17/16 Time of Evaluation: 13:36 - Subjective Subjective: 65 yo male patient was seen at bedside this afternoon concerning open ulcerations to Right bimalleolar aspect and Left dorsal aspect of 1st ray. Patient denies of any acute overnight distress. AAO x3. Patient denies of any N/ V/F/C or SOB today Patient was educated on importance of putting heel pads on. Patient refuses to wear them against medical advice. Dressing to Left foot was taken off today at the time of visit. Patient was educated of importance of keeping the dressing on with possible risks of infection and progression to limb amputation. Objective - Vital Signs/Intake and Output Vital Signs (last 24 hours): Temp Pulse Resp BP Pulse Ox 97.9 F 74 20 138/74 96 11/17/16 08:37 11/17/16 09:55 11/17/16 08:37 11/17/16 13:25 11/17/16 08:37 Intake and Output: 11/17/16 11/17/16 06:59 18:59 Intake Total 1380 Output Total 1240 Balance 140 - Medications Medications: Current Medications Acetaminophen (Tylenol 325mg Tab) 650 mg PO Q4H PRN PRN Reason: Pain, moderate (4-7) Last Admin: 11/15/16 22:46 Dose: 650 mg Ascorbic Acid (Vitamin C 500 Mg Tab) 500 mg PO DAILY [facility] Last Admin: 11/17/16 09:54 Dose: 500 mg Aspirin (Aspirin Chewable) 81 mg PO DAILY [facility] Last Admin: 11/17/16 09:56 Dose: 81 mg Atorvastatin Calcium (Lipitor) 40 mg PO DIN [facility] Last Admin: 11/16/16 17:41 Dose: 40 mg Carvedilol (Coreg) 3.125 mg PO BID [facility] Last Admin: 11/17/16 09:55 Dose: 3.125 mg Cefpodoxime Proxetil (Vantin) 100 mg PO Q12 [facility] PRN Reason: Protocol Stop: 11/23/16 22:01 Last Admin: 11/17/16 09:54 Dose: 100 mg Collagenase (Santyl) 0 gm TOP DAILY [facility] Last Admin: 11/17/16 09:57 Dose: 1 applic Ergocalciferol (Drisdol 50,000 Intl Units Cap) 1 cap PO Q7D [facility] Last Admin: 11/12/16 12:08 Dose: 1 cap Ferrous Sulfate (Feosol) 324 mg PO TID [facility] Last Admin: 11/17/16 13:24 Dose: 324 mg Furosemide (Lasix) 80 mg IVP BID [facility] Last Admin: 11/17/16 09:55 Dose: 80 mg Hydralazine HCl (Apresoline) 50 mg PO QID [facility] Last Admin: 11/17/16 13:25 Dose: 50 mg Insulin Human Regular (Humulin R Low) 0 units SC ACHS [facility] PRN Reason: Protocol Last Admin: 11/17/16 11:35 Dose: 1 units Metolazone (Zaroxolyn) 5 mg PO BID [facility] Last Admin: 11/17/16 09:56 Dose: 5 mg Multi-Ingredient Cream (Hydrocerin Cream) 0 ea TOP DAILY [facility] Last Admin: 11/17/16 09:56 Dose: 1 applic Pantoprazole Sodium (Protonix Ec Tab) 40 mg PO 0600 [facility] Last Admin: 11/17/16 07:30 Dose: 40 mg Spironolactone (Aldactone) 25 mg PO BID [facility] Last Admin: 11/17/16 09:56 Dose: 25 mg Tamsulosin HCl (Flomax) 0.4 mg PO BID [facility] Last Admin: 11/17/16 09:54 Dose: 0.4 mg Zinc Sulfate (Zinc Sulfate 220 Mg Cap) 220 mg PO DAILY [facility] Last Admin: 11/17/16 09:54 Dose: 220 mg - Labs Labs: 11/17/16 06:25 11/17/16 06:25 PT 15.4 Seconds (9.9-11.8) H 11/09/16 07:10 INR 1.43 (0.93-1.08) H 11/09/16 07:10 APTT 29.0 Seconds (23.7-30.8) 11/08/16 11:30 - Constitutional Appears: Well, Non-toxic, No Acute Distress - Extremities Exam Additional comments: bilateral lower extremities exam DERM: Right - Open ulceration noted to either sides of malleolus each measuring 1cm x 1cmx 0.2cm with 100% fibrotic bases. Mild serous drainage is noted from both wounds. No purulent discharge is noted. No sign of acute infections is noted. No PTB Left - Open ulceration to dorsal aspect of Left 1st metatarsal measuring 7cm x 2cm x 0.2cm with 100% fibrotic base. No drainage is noted. No purulent discharge noted. No mal-odor is noted. No erythema around the wound is noted. No maceration noted to the wound edges. No sign of acute infections is noted. No PTB VASC: Non-palpable DP and PT noted bilaterally. 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 ORTHO: Mild pain induced on palpation to ulcerations. Decreased ROM to joints distal to ankle NEURO: Gross sensation diminished to distal aspect of bilateral feet, tested with monofilament 9 points plantar feet - Skin Skin Exam: Normal Color, Warm Assessment and Plan - Assessment and Plan (Free Text) Assessment: 65 yo male patient presents with open ulcerations to bilateral lower extremities Perez Stage ii Plan: Patient was seen, evaluated Rounded with attending Dr. Contreras Labs and vitals reviewed Right - Wound debrided with a sterile curette bedside. Right lower extremity cleansed with Sterile normal saline. Silvacell and Optifoam Left - Wound debrided with a sterile curette bedside. Left foot cleansed with Sterile normal saline and dressed with Silvacell and DSD Risks of not using Heel pads stressed to the patient including development of heel pressure ulcerations which can lead to amputation Patient advised not to take off the dressing. MRI (-)OM Left WCX :Serratia Marcescens Podiatry will follow in-house <Kurtis Amos - Last Filed: 11/19/16 08:02> Objective - Vital Signs/Intake and Output Vital Signs (last 24 hours): Temp Pulse Resp BP Pulse Ox 97.8 F 78 20 137/87 94 L 11/19/16 04:59 11/19/16 04:59 11/19/16 04:59 11/19/16 04:59 11/19/16 04:59 Intake and Output: 11/19/16 11/19/16 06:59 18:59 Intake Total 660 Output Total 2500 Balance -1840 - Medications Medications: Current Medications Acetaminophen (Tylenol 325mg Tab) 650 mg PO Q4H PRN PRN Reason: Pain, moderate (4-7) Last Admin: 11/15/16 22:46 Dose: 650 mg Ascorbic Acid (Vitamin C 500 Mg Tab) 500 mg PO DAILY [facility] Last Admin: 11/18/16 09:52 Dose: 500 mg Aspirin (Aspirin Chewable) 81 mg PO DAILY [facility] Last Admin: 11/18/16 09:52 Dose: 81 mg Atorvastatin Calcium (Lipitor) 40 mg PO DIN [facility] Last Admin: 11/18/16 19:00 Dose: 40 mg Carvedilol (Coreg) 3.125 mg PO BID [facility] Last Admin: 11/18/16 17:39 Dose: 3.125 mg Cefpodoxime Proxetil (Vantin) 100 mg PO Q12 [facility] PRN Reason: Protocol Stop: 11/23/16 22:01 Last Admin: 11/18/16 22:08 Dose: 100 mg Collagenase (Santyl) 0 gm TOP DAILY [facility] Last Admin: 11/18/16 14:09 Dose: 1 applic Ergocalciferol (Drisdol 50,000 Intl Units Cap) 1 cap PO Q7D [facility] Last Admin: 11/12/16 12:08 Dose: 1 cap Ferrous Sulfate (Feosol) 324 mg PO TID [facility] Last Admin: 11/18/16 17:38 Dose: 324 mg Furosemide (Lasix) 80 mg PO BID [facility] Last Admin: 11/18/16 17:38 Dose: 80 mg Hydralazine HCl (Apresoline) 50 mg PO QID [facility] Last Admin: 11/18/16 22:07 Dose: 50 mg Insulin Human Regular (Humulin R Low) 0 units SC ACHS [facility] PRN Reason: Protocol Last Admin: 11/18/16 22:08 Dose: Not Given Lactobacillus Acidophilus (Bacid Acidophilus) 1 cap PO BID [facility] Last Admin: 11/18/16 17:39 Dose: 1 cap Metolazone (Zaroxolyn) 5 mg PO BID [facility] Last Admin: 11/18/16 17:36 Dose: 5 mg Multi-Ingredient Cream (Hydrocerin Cream) 0 ea TOP DAILY [facility] Last Admin: 11/18/16 14:14 Dose: 1 applic Pantoprazole Sodium (Protonix Ec Tab) 40 mg PO 0600 [facility] Last Admin: 11/19/16 06:23 Dose: 40 mg Spironolactone (Aldactone) 25 mg PO BID [facility] Last Admin: 11/18/16 17:36 Dose: 25 mg Tamsulosin HCl (Flomax) 0.4 mg PO BID [facility] Last Admin: 11/18/16 17:38 Dose: 0.4 mg Zinc Sulfate (Zinc Sulfate 220 Mg Cap) 220 mg PO DAILY [facility] Last Admin: 11/18/16 09:52 Dose: 220 mg - Labs Labs: 11/19/16 06:05 11/19/16 06:05 PT 14.7 Seconds (9.9-11.8) H 11/18/16 09:50 INR 1.36 (0.93-1.08) H 11/18/16 09:50 APTT 31.6 Seconds (23.7-30.8) H 11/18/16 09:50 Attending/Attestation - Attestation I have personally seen and examined this patient.: Yes I have fully participated in the care of the patient.: Yes I have reviewed all pertinent clinical information, including history, physical exam and plan: Yes
--- NOTE | 2016-11-17 14:36 | CP.PCM.PN ---
Subjective - Date & Time of Evaluation Date of Evaluation: 11/17/16 Time of Evaluation: 14:32 - Subjective Subjective: Follow up Nephrology Consultation: Assessment: Stable Acute Kidney Injury (N17.9) possibly due to Chronic NSAIDs use. also contribution by his severe CHF (cardio-renal) Fluid overload, Anasarca with CHF exacerbation Diabetic chronic Kidney Disease (E11.22) Hypertensive Chronic Kidney Disease (I12.9) Chronic Kidney Disease (N18.4) Stage 4 with 200 proteinuria (R80.9) possibly due to his long standing hx of HTN, atherosclerotic vasc disease Anemia (D64.9), HTN (I12.9), DM, CHF, Morbid obesity, YASMIN on CPAP, back pain, Hypernatremia, heel ulcers, ventral hernia, ascites Vit D def and secondary hyperparathyroidism Plan No acute need for renal replacement therapy at this time. Patient aware that due to his advanced renal insuff, CHF and fluid overload, dialysis could be anticipated in near future. Pt advised to abstain from NSAIDs completely. o continue with diuresis with IV lasix 80 mg bid and oral metolazone 5 mg bid while in-house. Hypertension control with meds as ordered. Patient on RAAS lei with aldactone Agree with oral iron supplements. s/p Aransep 60 mcg (11/12). PRBC as needed. continue with weekly Vit D 50,000 unit x 8 doses. also started on flomax 0.4 mg bid. pt seen by Monitor Input/Output, daily weights and renal function with basic metabolic panel wound care. he is for ascitic fluid drainage by IR. at d/c switch to PO lasix 80 mg bid and metolazone 2.5 mg once a day. oral fluid restriction to 1000 mL/day. Dose meds/antibiotics for reduced GFR. Avoid fleets enema/magnesium based laxatives. Avoid nephrotoxins/NSAIDs/ iodinated contrast (unless needed emergently) Glycemic control Further work up/management as per primary team Thanks for allowing me to participate in care of your patient. Will follow patient with you. 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 He has been taking NSAIDs as Advil (3 tab) and alleve (2 tab) per day on most days for last few weeks to control his pain. Subjective: Denies chest pain, palpitation, shortness of breath, says legs and arms swelling feels better had mortensen placed by . ROS: Constitutional Symptoms: Denies fever. No chills. had gained weight over time Eyes: denies change in vision, denies watery eyes, denies double vision Ears/Nose/Mouth/Throat: Denies Abnormal Taste. No Bad breath no Bad Taste. Cardiovascular: No chest pain. There is no shortness of breath at present. No palpitations. Pulmonary: No shortness of breath no cough now. Gastrointestinal: denies abdominal pain No nausea. No vomiting. Denies change in bowel habits. Denies Bleeding Genitourinary: has mortensen now Neurological: Denies headaches. No dizziness. Denies loss of balance. c/o overall weakness, denies tingling/numbness Dermatological: No Rash or Bruising but had heel/feet ulcers. Psychiatric: Denies Anxiety. No depression. Denies hallucinations. Rheumatological: c/o low back pain. Denies Joint swelling Endocrine: denies Heat/Cold Intolerance. All other negative Physical Examination: General Appearance: Comfortable, in no acute respiratory distress, co-operative . morbidly Obese Vitals reviewed and noted as below Head; Atraumatic, normocephalic ENT: no ulcers no thrush. Tongue is midline. Oropharynx: no rash or ulcers. EYES: Pupils are equal, round and reactive to light accommodation. Eye muscles and extraocular movement intact. Sclera is anicteric. Neck; supple no lymphadenopathy, no thyromegaly or bruit Lungs: Normal respiratory rate/effort. Breath sounds bilateral equal and clear except somewhat decreased at bases Heart: Normal rate. s1s2 normal. No rub or gallop. Extremities: 3+ edema with chronic venous stasis changes in legs. No varicose veins. both heels dressed. has thigh edema/Anasarca. hands/arms swelling much better Neurological: Patient is alert, awake and oriented to person, place and time. No focal deficit. Strength bilateral appropriate and equal Skin: Warm and dry. Normal turgor. No rash. Palpitation: Normal elasticity for age Abdomen: Abdomen is distended. has midline ventral hernia. has abdomen wall edema. Bowel sounds +. There is no abdominal tenderness, no guarding/rigidity. Unable to examine/appreciate organomegaly due to obesity/edema and distension of abdomen Psych: normal insight and normal affect/mood MSK: no joint tenderness or swelling. Digits and nails normal, no deformity : kidney or bladder not palpable but exam very limited. has significant scrotal/penile edema. has mortensen Labs/imaging/EKG reviewed. Past medical history, past surgical history, family history, social history, allergy reviewed and noted as below Family hx: no hx of CKD. Rest non-contributory Work up: UA: no blood or prot Phos 3.5 Mg 2.5 Albumin 3 TSAT 10% Ferritin 101 CXr: pulm congestion Echo: EF 22% [place]/lambda ratio Normal Renal and bladder sono: PVR 438 ml but also had ascites hence PVR can be false + elevated on sonogram. Vit D 13 PTH 120 Objective - Vital Signs/Intake and Output Vital Signs (last 24 hours): Temp Pulse Resp BP Pulse Ox 97.9 F 74 20 138/74 96 11/17/16 08:37 11/17/16 09:55 11/17/16 08:37 11/17/16 13:25 11/17/16 08:37 Intake and Output: 11/17/16 11/17/16 06:59 18:59 Intake Total 1380 600 Output Total 1240 1500 Balance 140 -900 - Medications Medications: Current Medications Acetaminophen (Tylenol 325mg Tab) 650 mg PO Q4H PRN PRN Reason: Pain, moderate (4-7) Last Admin: 11/15/16 22:46 Dose: 650 mg Ascorbic Acid (Vitamin C 500 Mg Tab) 500 mg PO DAILY [facility] Last Admin: 11/17/16 09:54 Dose: 500 mg Aspirin (Aspirin Chewable) 81 mg PO DAILY [facility] Last Admin: 11/17/16 09:56 Dose: 81 mg Atorvastatin Calcium (Lipitor) 40 mg PO DIN [facility] Last Admin: 11/16/16 17:41 Dose: 40 mg Carvedilol (Coreg) 3.125 mg PO BID [facility] Last Admin: 11/17/16 09:55 Dose: 3.125 mg Cefpodoxime Proxetil (Vantin) 100 mg PO Q12 [facility] PRN Reason: Protocol Stop: 11/23/16 22:01 Last Admin: 11/17/16 09:54 Dose: 100 mg Collagenase (Santyl) 0 gm TOP DAILY [facility] Last Admin: 11/17/16 09:57 Dose: 1 applic Ergocalciferol (Drisdol 50,000 Intl Units Cap) 1 cap PO Q7D [facility] Last Admin: 11/12/16 12:08 Dose: 1 cap Ferrous Sulfate (Feosol) 324 mg PO TID [facility] Last Admin: 11/17/16 13:24 Dose: 324 mg Furosemide (Lasix) 80 mg IVP BID [facility] Last Admin: 11/17/16 09:55 Dose: 80 mg Hydralazine HCl (Apresoline) 50 mg PO QID [facility] Last Admin: 11/17/16 13:25 Dose: 50 mg Insulin Human Regular (Humulin R Low) 0 units SC ACHS [facility] PRN Reason: Protocol Last Admin: 11/17/16 11:35 Dose: 1 units Metolazone (Zaroxolyn) 5 mg PO BID [facility] Last Admin: 11/17/16 09:56 Dose: 5 mg Multi-Ingredient Cream (Hydrocerin Cream) 0 ea TOP DAILY [facility] Last Admin: 11/17/16 09:56 Dose: 1 applic Pantoprazole Sodium (Protonix Ec Tab) 40 mg PO 0600 [facility] Last Admin: 11/17/16 07:30 Dose: 40 mg Spironolactone (Aldactone) 25 mg PO BID [facility] Last Admin: 11/17/16 09:56 Dose: 25 mg Tamsulosin HCl (Flomax) 0.4 mg PO BID [facility] Last Admin: 11/17/16 09:54 Dose: 0.4 mg Zinc Sulfate (Zinc Sulfate 220 Mg Cap) 220 mg PO DAILY [facility] Last Admin: 11/17/16 09:54 Dose: 220 mg - Labs Labs: 11/17/16 06:25 11/17/16 06:25 PT 15.4 Seconds (9.9-11.8) H 11/09/16 07:10 INR 1.43 (0.93-1.08) H 11/09/16 07:10 APTT 29.0 Seconds (23.7-30.8) 11/08/16 11:30
--- NOTE | 2016-11-17 15:49 | PN ---
DATE: 11/17/2016 SUBJECTIVE: The patient is seen earlier today. PHYSICAL EXAMINATION VITAL SIGNS: Temperature is 98, blood pressure is 120/70, respiratory rate of 16. HEENT: Unremarkable. NECK: Supple. LUNGS: Decreased breath sounds. HEART: Normal S1 and S2. ABDOMEN: Soft. LABORATORY DATA: Reveals a white count of 9.2, hemoglobin of 10, platelets of 161. Chemistries reveals a BUN of 125, creatinine of 3.4 and urinalysis is noted. ASSESSMENT AND PLAN: A 65-year-old male with Serratia, skin and skin soft tissue infection, congestive heart failure, renal failure and diabetes and morbid obesity, BMI of 40 with Serratia right foot infection day #7, was treated with ceftriaxone and now on p.o. Vantin 100 mg p.o. b.i.d., would complete 7 days of therapy. Review of orders reveals p.o. Vantin to be active. Dr. Doty's note is reviewed. Charlie Taylor MD
--- NOTE | 2016-11-17 21:34 | PN ---
DATE: 11/17/2016 SUBJECTIVE: The patient is comfortable at rest, but still short of breath with minimal exertion. OBJECTIVE: VITAL SIGNS: Blood pressure is 128/77, heart rate is in the 70s. NECK: Negative JVD. LUNGS: Decreased breath sounds. HEART: Reveals S1, S2. EXTREMITIES: Bandage in both lower extremities. LABORATORY DATA: Hemoglobin is 10. Chemistries, BUN/creatinine is 125/3.4. IMPRESSION: 1. Recurrent congestive heart failure. 2. Dilated cardiomyopathy. 3. Fluid overload. 4. Persistent edema in lower extremities. 5. Foot ulcers PLAN: Given these findings, we will continue his Lasix. It is likely the patient may need dialysis to help control his CHF symptoms. Kamari Watt MD
[2016-11-18] MEDS: Pantoprazole 40 mg EC Tab PO SCH (05:39)
[2016-11-18] MEDS: Insulin Reg-LOW-Coverage SC SCH ×4 (07:30→22:08)
[2016-11-18] MEDS: Cefpodoxime (Vantin) 100 mg Tab PO SCH ×2 (09:52→22:08)
[2016-11-18] MEDS: metOLazone 5 MG TAB PO SCH ×2 (09:52→17:36)
[2016-11-18] MEDS: Prostat 15 g packet GT SCH ×2 (09:53→18:53)
[2016-11-18 10:15] LABS: INR 1.36 (0.93-1.08); PARTIAL THROMBOPLASTIN TIME 31.6 Seconds (23.7-30.8)
[2016-11-18 10:44] LABS: BASO # 0.02 K/mm3 (0.0-2.0); BASO % 0.2 % (0.0-3.0); EOS # 0.4 (0.0-0.7); GRAN # 8.85 (1.4-6.5); GRAN % 87.5 % (50.0-68.0); HEMATOCRIT 31.8 % (42.0-52.0); LYMPH # 0.5 (1.2-3.4); LYMPH % 4.5 % (22.0-35.0); MEAN CELL VOLUME 89.3 fl (80.0-105.0); MEAN CORPUSCULAR HEMOGLOBIN 28.9 pg (25.0-35.0); MEAN CORPUSCULAR HGB CONC 32.4 g/dl (31.0-37.0); MEAN PLATELET VOLUME 10.3 fl (7.0-11.0); MONO # 0.4 (0.1-0.6); MONO % 3.8 % (1.0-6.0); RED CELL DISTRIBUTION WIDTH 18.1 % (11.5-14.5); WHITE BLOOD COUNT 10.1 10^3/ul (4.5-11.0)
[2016-11-18 10:52] LABS: ALB/GLOB RATIO 0.7 (1.1-1.8); BILIRUBIN,TOTAL 1.3 mg/dL (0.2-1.3); CALCIUM 8.9 mg/dL (8.4-10.5); POTASSIUM 4.4 mmol/L (3.6-5.0); TOTAL PROTEIN 7.5 g/dL (5.8-8.3)
--- NOTE | 2016-11-18 12:23 | CP.PCM.PN ---
Subjective - Date & Time of Evaluation Date of Evaluation: 11/18/16 Time of Evaluation: 12:21 - Subjective Subjective: Follow up Nephrology Consultation: Assessment: Stable Acute Kidney Injury (N17.9) possibly due to Chronic NSAIDs use. also contribution by his severe CHF (cardio-renal) Fluid overload, Anasarca with CHF exacerbation Diabetic chronic Kidney Disease (E11.22) Hypertensive Chronic Kidney Disease (I12.9) Chronic Kidney Disease (N18.4) Stage 4 with 200 proteinuria (R80.9) possibly due to his long standing hx of HTN, atherosclerotic vasc disease Anemia (D64.9), HTN (I12.9), DM, CHF, Morbid obesity, YASMIN on CPAP, back pain, Hypernatremia, heel ulcers, ventral hernia, ascites Vit D def and secondary hyperparathyroidism Plan No acute need for renal replacement therapy at this time. Patient aware that due to his advanced renal insuff, CHF and fluid overload, dialysis to be anticipated in near future. Pt advised to abstain from NSAIDs completely. continue with diuresis with IV lasix 80 mg bid and oral metolazone 5 mg bid while in-house. Hypertension control with meds as ordered. Patient on RAAS lei with aldactone Agree with oral iron supplements. s/p Aransep 60 mcg (11/12). PRBC as needed. continue with weekly Vit D 50,000 unit x 8 doses. also started on flomax 0.4 mg bid. pt seen by Monitor Input/Output, daily weights and renal function with basic metabolic panel wound care. he is for ascitic fluid drainage by IR. at d/c switch to PO lasix 80 mg bid and metolazone 2.5 mg once a day. oral fluid restriction to 1000 mL/day. Dose meds/antibiotics for reduced GFR. Avoid fleets enema/magnesium based laxatives. Avoid nephrotoxins/NSAIDs/ iodinated contrast (unless needed emergently) Glycemic control Further work up/management as per primary team Thanks for allowing me to participate in care of your patient. Please call if any Qs. pt planned for d/c PAOLO. stable from renal perspective. d/w team. pt to follow up with me in office 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 He has been taking NSAIDs as Advil (3 tab) and alleve (2 tab) per day on most days for last few weeks to control his pain. Subjective: Denies chest pain, palpitation, shortness of breath, says legs and arms swelling feels better had mortensen placed by . ROS: Constitutional Symptoms: Denies fever. No chills. Eyes: denies change in vision, denies watery eyes, denies double vision Ears/Nose/Mouth/Throat: Denies Abnormal Taste. No Bad breath no Bad Taste. Cardiovascular: No chest pain. There is no shortness of breath at present. No palpitations. Pulmonary: No shortness of breath no cough now. Gastrointestinal: denies abdominal pain No nausea. No vomiting. Denies change in bowel habits. Denies Bleeding Genitourinary: has mortensen now Neurological: Denies headaches. No dizziness. Denies loss of balance. c/o overall weakness, denies tingling/numbness Dermatological: No Rash or Bruising but had heel/feet ulcers. Psychiatric: Denies Anxiety. No depression. Denies hallucinations. Rheumatological: c/o low back pain. Denies Joint swelling Endocrine: denies Heat/Cold Intolerance. All other negative Physical Examination: General Appearance: Comfortable, in no acute respiratory distress, co-operative . morbidly Obese Vitals reviewed and noted as below Head; Atraumatic, normocephalic ENT: no ulcers no thrush. Tongue is midline. Oropharynx: no rash or ulcers. EYES: Pupils are equal, round and reactive to light accommodation. Eye muscles and extraocular movement intact. Sclera is anicteric. Neck; supple no lymphadenopathy, no thyromegaly or bruit Lungs: Normal respiratory rate/effort. Breath sounds bilateral equal and clear except somewhat decreased at bases Heart: Normal rate. s1s2 normal. No rub or gallop. Extremities: 2-3+ edema with chronic venous stasis changes in legs. No varicose veins. both heels dressed. has thigh edema/Anasarca. hands/arms swelling much better Neurological: Patient is alert, awake and oriented to person, place and time. No focal deficit. Strength bilateral appropriate and equal Skin: Warm and dry. Normal turgor. No rash. Palpitation: Normal elasticity for age Abdomen: Abdomen is distended. has midline ventral hernia. has abdomen wall edema. Bowel sounds +. There is no abdominal tenderness, no guarding/rigidity. Unable to examine/appreciate organomegaly due to obesity/edema and distension of abdomen Psych: normal insight and normal affect/mood MSK: no joint tenderness or swelling. Digits and nails normal, no deformity : kidney or bladder not palpable but exam very limited. has significant scrotal/penile edema. has mortensen Labs/imaging/EKG reviewed. Past medical history, past surgical history, family history, social history, allergy reviewed and noted as below Family hx: no hx of CKD. Rest non-contributory Work up: UA: no blood or prot Phos 3.5 Mg 2.5 Albumin 3 TSAT 10% Ferritin 101 CXr: pulm congestion Echo: EF 22% [place]/lambda ratio Normal Renal and bladder sono: PVR 438 ml but also had ascites hence PVR can be false + elevated on sonogram. Vit D 13 PTH 120 Objective - Vital Signs/Intake and Output Vital Signs (last 24 hours): Temp Pulse Resp BP Pulse Ox 97.7 F 73 18 144/73 100 11/17/16 16:00 11/18/16 09:51 11/17/16 16:00 11/18/16 09:51 11/17/16 16:00 Intake and Output: 11/18/16 11/18/16 06:59 18:59 Intake Total 540 Output Total 2250 Balance -1710 - Medications Medications: Current Medications Acetaminophen (Tylenol 325mg Tab) 650 mg PO Q4H PRN PRN Reason: Pain, moderate (4-7) Last Admin: 11/15/16 22:46 Dose: 650 mg Ascorbic Acid (Vitamin C 500 Mg Tab) 500 mg PO DAILY [facility] Last Admin: 11/18/16 09:52 Dose: 500 mg Aspirin (Aspirin Chewable) 81 mg PO DAILY [facility] Last Admin: 11/18/16 09:52 Dose: 81 mg Atorvastatin Calcium (Lipitor) 40 mg PO DIN [facility] Last Admin: 11/17/16 17:11 Dose: 40 mg Carvedilol (Coreg) 3.125 mg PO BID [facility] Last Admin: 11/18/16 09:52 Dose: 3.125 mg Cefpodoxime Proxetil (Vantin) 100 mg PO Q12 [facility] PRN Reason: Protocol Stop: 11/23/16 22:01 Last Admin: 11/18/16 09:52 Dose: 100 mg Collagenase (Santyl) 0 gm TOP DAILY [facility] Last Admin: 11/17/16 09:57 Dose: 1 applic Ergocalciferol (Drisdol 50,000 Intl Units Cap) 1 cap PO Q7D [facility] Last Admin: 11/12/16 12:08 Dose: 1 cap Ferrous Sulfate (Feosol) 324 mg PO TID [facility] Last Admin: 11/18/16 09:52 Dose: 324 mg Furosemide (Lasix) 80 mg IVP BID [facility] Last Admin: 11/18/16 09:49 Dose: 80 mg Hydralazine HCl (Apresoline) 50 mg PO QID [facility] Last Admin: 11/18/16 09:51 Dose: 50 mg Insulin Human Regular (Humulin R Low) 0 units SC ACHS [facility] PRN Reason: Protocol Last Admin: 11/17/16 22:00 Dose: Not Given Lactobacillus Acidophilus (Bacid Acidophilus) 1 cap PO BID [facility] Metolazone (Zaroxolyn) 5 mg PO BID [facility] Last Admin: 11/18/16 09:52 Dose: 5 mg Multi-Ingredient Cream (Hydrocerin Cream) 0 ea TOP DAILY [facility] Last Admin: 11/17/16 09:56 Dose: 1 applic Pantoprazole Sodium (Protonix Ec Tab) 40 mg PO 0600 [facility] Last Admin: 11/18/16 05:39 Dose: 40 mg Spironolactone (Aldactone) 25 mg PO BID [facility] Last Admin: 11/18/16 09:52 Dose: 25 mg Tamsulosin HCl (Flomax) 0.4 mg PO BID [facility] Last Admin: 11/17/16 17:11 Dose: 0.4 mg Zinc Sulfate (Zinc Sulfate 220 Mg Cap) 220 mg PO DAILY [facility] Last Admin: 11/18/16 09:52 Dose: 220 mg - Labs Labs: 11/18/16 07:30 11/18/16 07:30 PT 14.7 Seconds (9.9-11.8) H 11/18/16 09:50 INR 1.36 (0.93-1.08) H 11/18/16 09:50 APTT 31.6 Seconds (23.7-30.8) H 11/18/16 09:50
--- NOTE | 2016-11-18 12:38 | CP.PCM.PN ---
Subjective - Date & Time of Evaluation Date of Evaluation: 11/18/16 Time of Evaluation: 11:40 - Subjective Subjective: Comfortable in bed, not in distress, afebrile. Objective - Vital Signs/Intake and Output Vital Signs (last 24 hours): Temp Pulse Resp BP Pulse Ox 97.7 F 73 18 144/73 100 11/17/16 16:00 11/18/16 09:51 11/17/16 16:00 11/18/16 09:51 11/17/16 16:00 Intake and Output: 11/18/16 11/18/16 06:59 18:59 Intake Total 540 Output Total 2250 Balance -1710 - Medications Medications: Current Medications Acetaminophen (Tylenol 325mg Tab) 650 mg PO Q4H PRN PRN Reason: Pain, moderate (4-7) Last Admin: 11/15/16 22:46 Dose: 650 mg Ascorbic Acid (Vitamin C 500 Mg Tab) 500 mg PO DAILY [facility] Last Admin: 11/18/16 09:52 Dose: 500 mg Aspirin (Aspirin Chewable) 81 mg PO DAILY [facility] Last Admin: 11/18/16 09:52 Dose: 81 mg Atorvastatin Calcium (Lipitor) 40 mg PO DIN [facility] Last Admin: 11/17/16 17:11 Dose: 40 mg Carvedilol (Coreg) 3.125 mg PO BID [facility] Last Admin: 11/18/16 09:52 Dose: 3.125 mg Cefpodoxime Proxetil (Vantin) 100 mg PO Q12 [facility] PRN Reason: Protocol Stop: 11/23/16 22:01 Last Admin: 11/18/16 09:52 Dose: 100 mg Collagenase (Santyl) 0 gm TOP DAILY [facility] Last Admin: 11/17/16 09:57 Dose: 1 applic Ergocalciferol (Drisdol 50,000 Intl Units Cap) 1 cap PO Q7D [facility] Last Admin: 11/12/16 12:08 Dose: 1 cap Ferrous Sulfate (Feosol) 324 mg PO TID [facility] Last Admin: 11/18/16 09:52 Dose: 324 mg Furosemide (Lasix) 80 mg IVP BID [facility] Last Admin: 11/18/16 09:49 Dose: 80 mg Hydralazine HCl (Apresoline) 50 mg PO QID [facility] Last Admin: 11/18/16 09:51 Dose: 50 mg Insulin Human Regular (Humulin R Low) 0 units SC ACHS [facility] PRN Reason: Protocol Last Admin: 11/17/16 22:00 Dose: Not Given Lactobacillus Acidophilus (Bacid Acidophilus) 1 cap PO BID [facility] Metolazone (Zaroxolyn) 5 mg PO BID [facility] Last Admin: 11/18/16 09:52 Dose: 5 mg Multi-Ingredient Cream (Hydrocerin Cream) 0 ea TOP DAILY [facility] Last Admin: 11/17/16 09:56 Dose: 1 applic Pantoprazole Sodium (Protonix Ec Tab) 40 mg PO 0600 [facility] Last Admin: 11/18/16 05:39 Dose: 40 mg Spironolactone (Aldactone) 25 mg PO BID [facility] Last Admin: 11/18/16 09:52 Dose: 25 mg Tamsulosin HCl (Flomax) 0.4 mg PO BID [facility] Last Admin: 11/17/16 17:11 Dose: 0.4 mg Zinc Sulfate (Zinc Sulfate 220 Mg Cap) 220 mg PO DAILY [facility] Last Admin: 11/18/16 09:52 Dose: 220 mg - Labs Labs: 11/17/16 06:25 11/17/16 06:25 PT 14.7 Seconds (9.9-11.8) H 11/18/16 09:50 INR 1.36 (0.93-1.08) H 11/18/16 09:50 APTT 31.6 Seconds (23.7-30.8) H 11/18/16 09:50 - Constitutional Appears: Non-toxic, No Acute Distress - Head Exam Head Exam: NORMAL INSPECTION - ENT Exam ENT Exam: Mucous Membranes Moist - Neck Exam Neck Exam: absent: Lymphadenopathy, Meningismus - Respiratory Exam Respiratory Exam: Decreased Breath Sounds - Cardiovascular Exam Cardiovascular Exam: +S1, +S2 - GI/Abdominal Exam GI & Abdominal Exam: Soft. absent: Tenderness - Extremities Exam Additional comments: both feet with dressings in place Assessment and Plan - Assessment and Plan (Free Text) Plan: Assessment Probable infected right foot ulcers with Serratia chronic CHF chronic renal failure DM morbid obesity with BMI 40 obstructive sleep apnea on CPAP sciatica HTN S/P left foot debridement (2015) Plan continue PO Vantin to complete a 7 day course (ie. 6 more days)since the Serratia in the wound is sensitive to Rocephin Podiatry to continue local wound care will continue to monitor clinically while the patient is in the hospital
--- NOTE | 2016-11-18 14:06 | CP.PCM.PN ---
<Gaurav Saunders - Last Filed: 11/18/16 14:02> Subjective - Date & Time of Evaluation Date of Evaluation: 11/18/16 Time of Evaluation: 14:02 - Subjective Subjective: Podiatry Progress Note - Dr. Contreras 65 year old male patient seen at bedside with attending, Dr. Contreras, for ulcerations to bimalleolar right lower extremity and ulceration to left dorsal aspect of 1st ray. Patient seen at bedside resting comfortably, AAOx3 and NAD. Patient denies any acute events overnight. Patient denies any pain to his foot today. Patient denies N/V/F/D/C/SOB. No other pedal complaints at this time. Objective - Vital Signs/Intake and Output Vital Signs (last 24 hours): Temp Pulse Resp BP Pulse Ox 97.7 F 73 18 144/73 100 11/17/16 16:00 11/18/16 09:51 11/17/16 16:00 11/18/16 09:51 11/17/16 16:00 Intake and Output: 11/18/16 11/18/16 06:59 18:59 Intake Total 540 Output Total 2250 Balance -1710 - Medications Medications: Current Medications Acetaminophen (Tylenol 325mg Tab) 650 mg PO Q4H PRN PRN Reason: Pain, moderate (4-7) Last Admin: 11/15/16 22:46 Dose: 650 mg Ascorbic Acid (Vitamin C 500 Mg Tab) 500 mg PO DAILY [facility] Last Admin: 11/18/16 09:52 Dose: 500 mg Aspirin (Aspirin Chewable) 81 mg PO DAILY [facility] Last Admin: 11/18/16 09:52 Dose: 81 mg Atorvastatin Calcium (Lipitor) 40 mg PO DIN [facility] Last Admin: 11/17/16 17:11 Dose: 40 mg Carvedilol (Coreg) 3.125 mg PO BID [facility] Last Admin: 11/18/16 09:52 Dose: 3.125 mg Cefpodoxime Proxetil (Vantin) 100 mg PO Q12 [facility] PRN Reason: Protocol Stop: 11/23/16 22:01 Last Admin: 11/18/16 09:52 Dose: 100 mg Collagenase (Santyl) 0 gm TOP DAILY [facility] Last Admin: 11/17/16 09:57 Dose: 1 applic Ergocalciferol (Drisdol 50,000 Intl Units Cap) 1 cap PO Q7D [facility] Last Admin: 11/12/16 12:08 Dose: 1 cap Ferrous Sulfate (Feosol) 324 mg PO TID [facility] Last Admin: 11/18/16 09:52 Dose: 324 mg Furosemide (Lasix) 80 mg IVP BID [facility] Last Admin: 11/18/16 09:49 Dose: 80 mg Hydralazine HCl (Apresoline) 50 mg PO QID [facility] Last Admin: 11/18/16 09:51 Dose: 50 mg Insulin Human Regular (Humulin R Low) 0 units SC ACHS [facility] PRN Reason: Protocol Last Admin: 11/17/16 22:00 Dose: Not Given Lactobacillus Acidophilus (Bacid Acidophilus) 1 cap PO BID [facility] Metolazone (Zaroxolyn) 5 mg PO BID [facility] Last Admin: 11/18/16 09:52 Dose: 5 mg Multi-Ingredient Cream (Hydrocerin Cream) 0 ea TOP DAILY [facility] Last Admin: 11/17/16 09:56 Dose: 1 applic Pantoprazole Sodium (Protonix Ec Tab) 40 mg PO 0600 [facility] Last Admin: 11/18/16 05:39 Dose: 40 mg Spironolactone (Aldactone) 25 mg PO BID [facility] Last Admin: 11/18/16 09:52 Dose: 25 mg Tamsulosin HCl (Flomax) 0.4 mg PO BID [facility] Last Admin: 11/17/16 17:11 Dose: 0.4 mg Zinc Sulfate (Zinc Sulfate 220 Mg Cap) 220 mg PO DAILY [facility] Last Admin: 11/18/16 09:52 Dose: 220 mg - Labs Labs: 11/18/16 07:30 11/18/16 07:30 PT 14.7 Seconds (9.9-11.8) H 11/18/16 09:50 INR 1.36 (0.93-1.08) H 11/18/16 09:50 APTT 31.6 Seconds (23.7-30.8) H 11/18/16 09:50 - Constitutional Appears: Well, Non-toxic, No Acute Distress - Extremities Exam Additional comments: Dressing to RLE appears clean/dry/intact LLE focused physical exam: DERM: Left - Open ulceration to dorsal aspect of Left 1st metatarsal measuring 7cm x 2cm x 0.2cm with mixed granular-fibrotic base. No drainage is noted. No purulent discharge noted. No mal-odor is noted. No erythema around the wound is noted. No maceration noted to the wound edges. No sign of acute infections is noted. No PTB VASC: Non-palpable DP and PT noted [employer] less than 3 seconds to all digits ORTHO: No pain on palpation noted to LLE at today's visit. Decreased ROM to joints distal to ankle NEURO: Gross sensation diminished to distal aspect of bilateral feet - Neurological Exam Neurological Exam: Alert, Awake, Oriented x3 - Psychiatric Exam Psychiatric exam: Normal Affect, Normal Mood Assessment and Plan - Assessment and Plan (Free Text) Assessment: 65 yo male patient presents with open ulcerations to bilateral lower extremities Perez Stage ii Plan: Patient seen and evaluated with attending, Dr. Contreras Chart, vitals, labs reviewed = afebrile, WBC WML @ 10.1 RLE dressing was not removed during today's visit Santyl applied to left foot ulceration and dressed with 4x4s, abd, and kerlix Continue with application of Santyl to bilateral lower extremity wounds and dress with Optifoam; daily dressing changes to bilateral lower extremity Continue use of offloading heel pads. Per medicine, continue PO Vantin to complete a 7 day course (ie. 6 more days) since the Serratia in the wound is sensitive to Rocephin Podiatry will continue to follow patient while in house <Funmi Contreras - Last Filed: 11/22/16 19:59> Objective - Vital Signs/Intake and Output Vital Signs (last 24 hours): Temp Pulse Resp BP Pulse Ox 98.4 F 73 20 117/67 100 11/20/16 08:25 11/20/16 13:21 11/20/16 08:25 11/20/16 13:21 11/20/16 08:25 - Labs Labs: 11/20/16 06:50 11/20/16 06:50 PT 14.7 Seconds (9.9-11.8) H 11/18/16 09:50 INR 1.36 (0.93-1.08) H 11/18/16 09:50 APTT 31.6 Seconds (23.7-30.8) H 11/18/16 09:50 Attending/Attestation - Attestation I have personally seen and examined this patient.: Yes I have fully participated in the care of the patient.: Yes I have reviewed all pertinent clinical information, including history, physical exam and plan: Yes
[2016-11-18] MEDS: Collagenase 250 Units/gm Ointment(30 gm) TOP SCH (14:09)
[2016-11-18] MEDS: Hydrocerin(120 gm) TOP SCH (14:14)
--- NOTE | 2016-11-18 14:27 | CP.PCM.PN ---
<Ck Doty - Last Filed: 11/18/16 14:16> Subjective - Date & Time of Evaluation Date of Evaluation: 11/18/16 Time of Evaluation: 10:00 - Subjective Subjective: Patient seen and examined. No acute events overnight. States that his SOB has improved since yesterday. States that the swelling in his arms and legs have significantly improved since admission. Currently denies f/c/cp/SOB/abdominal pain/n/v/diarrhea/constipation/ urinary symptoms. Objective - Vital Signs/Intake and Output Vital Signs (last 24 hours): Temp Pulse Resp BP Pulse Ox 97.7 F 73 18 144/73 100 11/17/16 16:00 11/18/16 09:51 11/17/16 16:00 11/18/16 09:51 11/17/16 16:00 Intake and Output: 11/18/16 11/18/16 06:59 18:59 Intake Total 540 Output Total 2250 Balance -1710 - Medications Medications: Current Medications Acetaminophen (Tylenol 325mg Tab) 650 mg PO Q4H PRN PRN Reason: Pain, moderate (4-7) Last Admin: 11/15/16 22:46 Dose: 650 mg Ascorbic Acid (Vitamin C 500 Mg Tab) 500 mg PO DAILY [facility] Last Admin: 11/18/16 09:52 Dose: 500 mg Aspirin (Aspirin Chewable) 81 mg PO DAILY [facility] Last Admin: 11/18/16 09:52 Dose: 81 mg Atorvastatin Calcium (Lipitor) 40 mg PO DIN [facility] Last Admin: 11/17/16 17:11 Dose: 40 mg Carvedilol (Coreg) 3.125 mg PO BID [facility] Last Admin: 11/18/16 09:52 Dose: 3.125 mg Cefpodoxime Proxetil (Vantin) 100 mg PO Q12 [facility] PRN Reason: Protocol Stop: 11/23/16 22:01 Last Admin: 11/18/16 09:52 Dose: 100 mg Collagenase (Santyl) 0 gm TOP DAILY [facility] Last Admin: 11/17/16 09:57 Dose: 1 applic Ergocalciferol (Drisdol 50,000 Intl Units Cap) 1 cap PO Q7D [facility] Last Admin: 11/12/16 12:08 Dose: 1 cap Ferrous Sulfate (Feosol) 324 mg PO TID [facility] Last Admin: 11/18/16 09:52 Dose: 324 mg Furosemide (Lasix) 80 mg PO BID [facility] Hydralazine HCl (Apresoline) 50 mg PO QID [facility] Last Admin: 11/18/16 09:51 Dose: 50 mg Insulin Human Regular (Humulin R Low) 0 units SC ACHS [facility] PRN Reason: Protocol Last Admin: 11/17/16 22:00 Dose: Not Given Lactobacillus Acidophilus (Bacid Acidophilus) 1 cap PO BID [facility] Metolazone (Zaroxolyn) 5 mg PO BID [facility] Last Admin: 11/18/16 09:52 Dose: 5 mg Multi-Ingredient Cream (Hydrocerin Cream) 0 ea TOP DAILY [facility] Last Admin: 11/17/16 09:56 Dose: 1 applic Pantoprazole Sodium (Protonix Ec Tab) 40 mg PO 0600 [facility] Last Admin: 11/18/16 05:39 Dose: 40 mg Spironolactone (Aldactone) 25 mg PO BID [facility] Last Admin: 11/18/16 09:52 Dose: 25 mg Tamsulosin HCl (Flomax) 0.4 mg PO BID [facility] Last Admin: 11/17/16 17:11 Dose: 0.4 mg Zinc Sulfate (Zinc Sulfate 220 Mg Cap) 220 mg PO DAILY [facility] Last Admin: 11/18/16 09:52 Dose: 220 mg - Labs Labs: 11/18/16 07:30 11/18/16 07:30 PT 14.7 Seconds (9.9-11.8) H 11/18/16 09:50 INR 1.36 (0.93-1.08) H 11/18/16 09:50 APTT 31.6 Seconds (23.7-30.8) H 11/18/16 09:50 - Additional Findings Additional findings: Constitutional: a&o x 4, NAD Head and Neck: neck supple, no jvd, trachea midline, carotid midline, no cervical/head mass Eyes: nia, nonicteric sclera, eom intact ENT: auditory acuity grossly intact, throat not congested, no nasal deformity Cardio: rrr, no m/r/g, no carotid bruit, nml s1, s2 Pulm: no accessory muscle use, equal nml breath sounds bilaterally, ctab MSK: +Mild TTP in the lumbar area on the left Extremities- Right UE PICC line in place Abd: s/nt/nd, nbs x 4 q, no palpable masses Extr: 3+ pitting edema; malodorous feet; onychomycosis. Bandages just changed by Podiatry. 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 Ascities details- fluid was seen on the renal u/s in Gardiner's pouch - patient scheduled for paracentesis this afternoon - albumin, amylase, lipase, total protein of the peritoneal fluid - patient started on cefpodaxime (vantin) as per ID CHF details- Echocardiogram LVEF - 22.4%, 4 chamber dilation, CXR reviewed- [place]omegaly[place] [address], cannot tolerate milronone drip - Patient started on lasix 80mg PO q12h, aldactone 25mg PO BID, metolzone 5mg BID, hydralazine 50mg PO QID, coreg 3.125mg PO BID - Strict I's and O's - Daily Weight - HOB > 45' - Cardiology consulted -appreciate recs - Speak with Dr. Watt regarding potential AICD placement - Nephrology consult- get patient to be euvolemic then assess for secondary causes of hypertension CKD details- stage 4, 2/2 to diabetes and HTN; s/p Aransep 60 mcg (11/12), BUN noted to increase to 125 - Nephrology on board- at d/c switch to PO lasix 80 mg bid and metolazone 2.5 mg once a day. oral fluid restriction to 1000 mL/day. - Monitor Input/Output, daily weights and renal function with basic metabolic panel - Glycemic control Urinary retention details- mortensen in place, draining yellow urine with sediment present in mortensen tube - renal U/S ordered and reviewed- nephrolithasis - PSA pending Left toe abscess, Right foot infection details- osteomyelitis has been ruled out by podo - ID C/s: continue PO Vantin to complete a 7 day course (ie. 6 more days)since the Serratia in the wound is sensitive to Rocephin - Podiatry C/s: Right - Right lower extremity cleansed with Sterile normal saline. Santyl and DSD applied to ulcerations bilateral malleolus Left - Left foot cleansed with Sterile normal saline and dressed with Santyl and DSD MRI (-) osteomyelitis Left CWX: Serratia Marcescens b/l feet xray negative for osteomyelitis Hypoalbuminemia - albumin of 2.9 noted - increase protein in diet - will repeat albumin Right Upper Extremity Rash - resolved - patient is currently on cefpodoxamine as per ID DM type 2 - Consistent carb/heart healthy diet - Fingersticks ACHS - Humulin low dose ISS - Oral agents held Chronic Anemia details- curent HgB is 9.3 from 9.7 yesterday, was 7.7 on and was given 2 units pRBCs - Heme/Onc consulted- appreciate recs: - Multiple Myeloma has been ruled out- total lilli/prince is elevated but ratio is normal unlikely MM - Cont Feosol - FOBT pending - HIV and Hepatitis neg - Physical therapy History of Hypertension - continue lasix and aldactone - cardio started patient on hydralazine YASMIN - CPAP at night; titrate to maintain O2sat > 90% Low back pain - acetaminophen prn GI/DVT Prophylaxis -Protonix/Heparin SC Dispo: TCU vs [facility] vs Home Consider TCU in the next two days to regain strength and to continue diuresis. Follow up with PMD outpatient. Follow up with Dr. Carreon outpatient Follow up with Dr. Glover seen there for pain. Patient seen and case discussed with attending, Dr. Faith. <Chris Ley - Last Filed: 01/01/17 16:45> Objective - Vital Signs/Intake and Output Vital Signs (last 24 hours): Temp Pulse Resp BP Pulse Ox 98.4 F 73 20 117/67 100 11/20/16 08:25 11/20/16 13:21 11/20/16 08:25 11/20/16 13:21 11/20/16 08:25 - Labs Labs: 11/20/16 06:50 11/20/16 06:50 PT 14.7 Seconds (9.9-11.8) H 11/18/16 09:50 INR 1.36 (0.93-1.08) H 11/18/16 09:50 APTT 31.6 Seconds (23.7-30.8) H 11/18/16 09:50 Attending/Attestation - Attestation I have personally seen and examined this patient.: Yes I have fully participated in the care of the patient.: Yes I have reviewed all pertinent clinical information, including history, physical exam and plan: Yes Notes (Text): 01/01/17 16:45 Medical record note made by the resident after discussion with my direction and input after the patient was personally seen and examined by me. I have reviewed the chart and agree that the record accurately reflects by personal performance of the history, physical exam, data review, and medical decision-making, in the course for the patient. I have also personally directed the plan of care.
[2016-11-18] MEDS: Lactobacillus Acidophilus 500 MU Cap PO SCH (17:39)
[2016-11-18 18:11] LABS: TOTAL PSA 4.8 ng/mL (<=4.0)
--- NOTE | 2016-11-18 20:16 | PN ---
DATE: 11/18/2016 SUBJECTIVE: The patient is comfortable. His breathing is stable. PHYSICAL EXAMINATION: VITAL SIGNS: Blood pressure is 134/80, the heart rate is in the 90s. The patient is afebrile. NECK: Negative JVD. LUNGS: Without rales. HEART: S1, S2. EXTREMITIES: Chronic edematous changes. LABORATORY DATA: Hemoglobin is 10, white count is 9.2. Chemistries, BUN and creatinine was not measured today. The glucose was 174. IMPRESSION: 1. Foot ulcers. 2. Dilated cardiomyopathy. 3. Improved congestive heart failure. 4. Renal insufficiency. Given these findings, the patient is tolerating the IV Lasix with his kidney dysfunction unchanged. We will continue the Lasix at this time. We will check a comp and creatinine in the morning. Kamari Watt MD
--- NOTE | 2016-11-19 02:18 | PN ---
DATE: 11/18/[address] Bermudez. SUBJECTIVE: The patient is a 65-year-old male admitted for low back pain, dyspnea with lower extremity ulcers with significant anemic indices with transfusions held as the patient has chronic kidney disease with the patient being followed by his renal consultants and at present he is resting comfortably in no acute distress this visit. His pedal edema has improved on present medical regimen as per programmer analyst consultant's evaluation. OBJECTIVE: VITAL SIGNS: Temperature 97.8, pulse 64, respirations 20, blood pressure 134/75, pulse oximetry 98%. HEENT: Unremarkable. NECK: Supple. HEART: Regular rate. LUNGS: Decreased breath sounds at the bases. ABDOMEN: Obese, soft, and nontender with ventral hernia. EXTREMITIES: +1 to 2 edema of lower extremities bilaterally. NEUROLOGIC: Awake and alert. SKIN: Otherwise warm and dry. IMAGING DATA: The patient's ultrasound of the abdomen was done two days prior was read as mild hepatomegaly, questionable cirrhosis, mild splenomegaly, and large abdominal ascites. LABORATORY DATA: The patient's labs were done. White blood cell count is 10.1, hemoglobin 10.3, hematocrit 31.8, platelet count of 170,000. Chem metabolic panel showed a BUN of 122 and creatinine of 3.3. Nonfasting glucose 178, alk phos 198 otherwise normal chem metabolic panel. The patient's urine culture was negative at four days' time with the patient known to be followed by podiatry, Dr. Contreras for ulcerations of his right lower extremity and left dorsal foot with dressings intact. MEDICATIONS: The patient's medications were reviewed. They include spironolactone, Apresoline, aspirin, lactobacillus, Coreg, vitamin D, Feosol, Flomax, insulin sliding scale, Hydrocerin cream, Lasix, Lipitor, Protonix, collagenase, Tylenol, Vantin, vitamin C, Zaroxolyn, and zinc. ASSESSMENT: Chronic kidney disease, diabetes, hypertension, ascites, history of congestive heart failure, urinary retention with Long and C tube, anemia of chronic disease, abscess of the foot, cellulitis with Serratia, and obesity. PLAN: After conversation with Dr. Bermudez, the plan for this patient is to continue present medical regimen. We will monitor clinically with labs, with no transfusions planned for now, as the patient had received two units of Paxil earlier in his hospital stay on November 12 and . Prognosis for this patient is guarded. Konstantin Ramires MD
[2016-11-19] MEDS: Pantoprazole 40 mg EC Tab PO SCH (06:23)
[2016-11-19 06:40] LABS: BASO # 0.01 K/mm3 (0.0-2.0); BASO % 0.1 % (0.0-3.0); EOS # 0.4 (0.0-0.7); EOS % 3.9 % (1.5-5.0); GRAN # 8.54 (1.4-6.5); GRAN % 87.2 % (50.0-68.0); HEMATOCRIT 31.8 % (42.0-52.0); LYMPH # 0.5 (1.2-3.4); LYMPH % 4.6 % (22.0-35.0); MEAN CELL VOLUME 89.1 fl (80.0-105.0); MEAN CORPUSCULAR HEMOGLOBIN 28.6 pg (25.0-35.0); MEAN CORPUSCULAR HGB CONC 32.1 g/dl (31.0-37.0); MONO # 0.4 (0.1-0.6); MONO % 4.2 % (1.0-6.0); RED CELL DISTRIBUTION WIDTH 18.3 % (11.5-14.5); WHITE BLOOD COUNT 9.8 10^3/ul (4.5-11.0)
[2016-11-19 06:48] LABS: ALB/GLOB RATIO 0.6 (1.1-1.8); BILIRUBIN,TOTAL 1.2 mg/dL (0.2-1.3); CALCIUM 8.9 mg/dL (8.4-10.5); POTASSIUM 4.5 mmol/L (3.6-5.0); TOTAL PROTEIN 7.5 g/dL (5.8-8.3)
--- NOTE | 2016-11-19 08:02 | CP.PCM.PN ---
<Archana Rosales - Last Filed: 11/19/16 07:58> Subjective - Date & Time of Evaluation Date of Evaluation: 11/19/16 Time of Evaluation: 08:02 - Subjective Subjective: Podiatry Progress Note - Dr. Contreras 65 year old male patient seen at bedside this morning or ulcerations to bimalleolar right lower extremity and ulceration to left dorsal aspect of 1st ray. AAOx3 and NAD. Patient denies any pain to his foot today. Patient denies N /V/F/D/C/SOB. No other pedal complaints at this time. Objective - Vital Signs/Intake and Output Vital Signs (last 24 hours): Temp Pulse Resp BP Pulse Ox 97.8 F 78 20 137/87 94 L 11/19/16 04:59 11/19/16 04:59 11/19/16 04:59 11/19/16 04:59 11/19/16 04:59 Intake and Output: 11/19/16 11/19/16 06:59 18:59 Intake Total 660 Output Total 2500 Balance -1840 - Medications Medications: Current Medications Acetaminophen (Tylenol 325mg Tab) 650 mg PO Q4H PRN PRN Reason: Pain, moderate (4-7) Last Admin: 11/15/16 22:46 Dose: 650 mg Ascorbic Acid (Vitamin C 500 Mg Tab) 500 mg PO DAILY [facility] Last Admin: 11/18/16 09:52 Dose: 500 mg Aspirin (Aspirin Chewable) 81 mg PO DAILY [facility] Last Admin: 11/18/16 09:52 Dose: 81 mg Atorvastatin Calcium (Lipitor) 40 mg PO DIN [facility] Last Admin: 11/18/16 19:00 Dose: 40 mg Carvedilol (Coreg) 3.125 mg PO BID [facility] Last Admin: 11/18/16 17:39 Dose: 3.125 mg Cefpodoxime Proxetil (Vantin) 100 mg PO Q12 [facility] PRN Reason: Protocol Stop: 11/23/16 22:01 Last Admin: 11/18/16 22:08 Dose: 100 mg Collagenase (Santyl) 0 gm TOP DAILY [facility] Last Admin: 11/18/16 14:09 Dose: 1 applic Ergocalciferol (Drisdol 50,000 Intl Units Cap) 1 cap PO Q7D [facility] Last Admin: 11/12/16 12:08 Dose: 1 cap Ferrous Sulfate (Feosol) 324 mg PO TID [facility] Last Admin: 11/18/16 17:38 Dose: 324 mg Furosemide (Lasix) 80 mg PO BID [facility] Last Admin: 11/18/16 17:38 Dose: 80 mg Hydralazine HCl (Apresoline) 50 mg PO QID [facility] Last Admin: 11/18/16 22:07 Dose: 50 mg Insulin Human Regular (Humulin R Low) 0 units SC ACHS [facility] PRN Reason: Protocol Last Admin: 11/18/16 22:08 Dose: Not Given Lactobacillus Acidophilus (Bacid Acidophilus) 1 cap PO BID [facility] Last Admin: 11/18/16 17:39 Dose: 1 cap Metolazone (Zaroxolyn) 5 mg PO BID [facility] Last Admin: 11/18/16 17:36 Dose: 5 mg Multi-Ingredient Cream (Hydrocerin Cream) 0 ea TOP DAILY [facility] Last Admin: 11/18/16 14:14 Dose: 1 applic Pantoprazole Sodium (Protonix Ec Tab) 40 mg PO 0600 [facility] Last Admin: 11/19/16 06:23 Dose: 40 mg Spironolactone (Aldactone) 25 mg PO BID [facility] Last Admin: 11/18/16 17:36 Dose: 25 mg Tamsulosin HCl (Flomax) 0.4 mg PO BID [facility] Last Admin: 11/18/16 17:38 Dose: 0.4 mg Zinc Sulfate (Zinc Sulfate 220 Mg Cap) 220 mg PO DAILY [facility] Last Admin: 11/18/16 09:52 Dose: 220 mg - Labs Labs: 11/19/16 06:05 11/19/16 06:05 PT 14.7 Seconds (9.9-11.8) H 11/18/16 09:50 INR 1.36 (0.93-1.08) H 11/18/16 09:50 APTT 31.6 Seconds (23.7-30.8) H 11/18/16 09:50 - Constitutional Appears: Well, Non-toxic, No Acute Distress - Extremities Exam Additional comments: Dressing to RLE appears clean/dry/intact LLE focused physical exam: DERM: Left - Open ulceration to dorsal aspect of Left 1st metatarsal measuring 7cm x 2cm x 0.2cm with mixed granular-fibrotic base. No drainage is noted. No purulent discharge noted. No mal-odor is noted. No erythema around the wound is noted. No maceration noted to the wound edges. No sign of acute infections is noted. No PTB VASC: Non-palpable DP and PT noted CLIENT SERVICES COORDINATOR less than 3 seconds to all digits ORTHO: No pain on palpation noted to LLE at today's visit. Decreased ROM to joints distal to ankle NEURO: Gross sensation diminished to distal aspect of bilateral feet - Neurological Exam Neurological Exam: Alert, Awake, Oriented x3 - Psychiatric Exam Psychiatric exam: Normal Affect, Normal Mood - Skin Skin Exam: Normal Color, Warm Assessment and Plan - Assessment and Plan (Free Text) Assessment: 65 yo male patient presents with open ulcerations to bilateral lower extremities Perez Stage ii Plan: Patient seen and evaluated with attending, Dr. Amos Chart, vitals, labs reviewed = afebrile, WBC WML @ 9.8 Santyl applied to Left foot ulceration and dressed with 4x4s, abd, and kerlix Continue with application of Santyl to bilateral lower extremity wounds and dress with Optifoam; daily dressing changes to bilateral lower extremity Continue use of offloading heel pads. Per medicine, continue PO Vantin to complete a 7 day course (ie. 5 more days) since the Serratia in the wound is sensitive to Rocephin Podiatry will continue to follow patient while in house <Kurtis Amos - Last Filed: 11/20/16 10:19> Objective - Vital Signs/Intake and Output Vital Signs (last 24 hours): Temp Pulse Resp BP Pulse Ox 98.4 F 80 20 133/70 100 11/20/16 08:25 11/20/16 10:01 11/20/16 08:25 11/20/16 10:07 11/20/16 08:25 Intake and Output: 11/20/16 11/20/16 06:59 18:59 Intake Total 600 Output Total 1500 Balance -900 - Medications Medications: Current Medications Acetaminophen (Tylenol 325mg Tab) 650 mg PO Q4H PRN PRN Reason: Pain, moderate (4-7) Last Admin: 11/15/16 22:46 Dose: 650 mg Ascorbic Acid (Vitamin C 500 Mg Tab) 500 mg PO DAILY [facility] Last Admin: 11/20/16 10:09 Dose: 500 mg Aspirin (Aspirin Chewable) 81 mg PO DAILY [facility] Last Admin: 11/20/16 10:00 Dose: 81 mg Atorvastatin Calcium (Lipitor) 40 mg PO DIN [facility] Last Admin: 11/19/16 18:25 Dose: 40 mg Carvedilol (Coreg) 3.125 mg PO BID [facility] Last Admin: 11/20/16 10:01 Dose: 3.125 mg Cefpodoxime Proxetil (Vantin) 100 mg PO Q12 [facility] PRN Reason: Protocol Stop: 11/23/16 22:01 Last Admin: 11/20/16 10:09 Dose: 100 mg Collagenase (Santyl) 0 gm TOP DAILY [facility] Last Admin: 11/19/16 10:55 Dose: Not Given Ergocalciferol (Drisdol 50,000 Intl Units Cap) 1 cap PO Q7D [facility] Last Admin: 11/19/16 13:50 Dose: 1 cap Ferrous Sulfate (Feosol) 324 mg PO BID [facility] Last Admin: 11/20/16 10:02 Dose: 324 mg Furosemide (Lasix) 80 mg IVP Q12 [facility] Last Admin: 11/20/16 10:07 Dose: 80 mg Hydralazine HCl (Apresoline) 50 mg PO QID [facility] Last Admin: 11/19/16 22:00 Dose: Not Given Insulin Human Regular (Humulin R Low) 0 units SC ACHS [facility] PRN Reason: Protocol Last Admin: 11/20/16 08:05 Dose: Not Given Lactobacillus Acidophilus (Bacid Acidophilus) 1 cap PO BID [facility] Last Admin: 11/20/16 10:01 Dose: 1 cap Metolazone (Zaroxolyn) 5 mg PO BID [facility] Last Admin: 11/20/16 10:10 Dose: 5 mg Multi-Ingredient Cream (Hydrocerin Cream) 0 ea TOP DAILY [facility] Last Admin: 11/20/16 10:06 Dose: 1 applic Pantoprazole Sodium (Protonix Ec Tab) 40 mg PO 0600 [facility] Last Admin: 11/20/16 10:08 Dose: 40 mg Spironolactone (Aldactone) 25 mg PO BID [facility] Last Admin: 11/20/16 09:58 Dose: 25 mg Tamsulosin HCl (Flomax) 0.4 mg PO BID [facility] Last Admin: 11/20/16 10:03 Dose: 0.4 mg Zinc Sulfate (Zinc Sulfate 220 Mg Cap) 220 mg PO DAILY [facility] Last Admin: 09/01/17 10:11 Dose: 220 mg - Labs Labs: 11/20/16 06:50 11/20/16 06:50 PT 14.7 Seconds (9.9-11.8) H 11/18/16 09:50 INR 1.36 (0.93-1.08) H 11/18/16 09:50 APTT 31.6 Seconds (23.7-30.8) H 11/18/16 09:50 Attending/Attestation - Attestation I have personally seen and examined this patient.: Yes I have fully participated in the care of the patient.: Yes I have reviewed all pertinent clinical information, including history, physical exam and plan: Yes
[2016-11-19] MEDS: Insulin Reg-LOW-Coverage SC SCH ×4 (08:16→22:45)
[2016-11-19] MEDS: metOLazone 5 MG TAB PO SCH ×2 (10:25→18:23)
[2016-11-19] MEDS: Lactobacillus Acidophilus 500 MU Cap PO SCH ×2 (10:26→18:23)
[2016-11-19] MEDS: Cefpodoxime (Vantin) 100 mg Tab PO SCH ×2 (10:26→22:43)
[2016-11-19] MEDS: Collagenase 250 Units/gm Ointment(30 gm) TOP SCH (10:55)
[2016-11-19] MEDS: Prostat 15 g packet GT SCH ×2 (10:55→20:08)
[2016-11-19] MEDS: Hydrocerin(120 gm) TOP SCH (10:55)
--- NOTE | 2016-11-19 11:14 | CP.PCM.PN ---
<Ck Doty - Last Filed: 11/19/16 12:37> Subjective - Date & Time of Evaluation Date of Evaluation: 11/19/16 Time of Evaluation: 09:30 - Subjective Subjective: Patient seen and examined. No acute events overnight. States that his SOB and anasarca has improved. Currently denies f/c/cp/SOB/abdominal pain/n/v/diarrhea/ constipation/ urinary symptoms Objective - Vital Signs/Intake and Output Vital Signs (last 24 hours): Temp Pulse Resp BP Pulse Ox 97.6 F 82 20 156/88 H 97 11/19/16 07:00 11/19/16 07:00 11/19/16 07:00 11/19/16 10:25 11/19/16 07:00 Intake and Output: 11/19/16 11/19/16 06:59 18:59 Intake Total 660 Output Total 2500 Balance -1840 - Medications Medications: Current Medications Acetaminophen (Tylenol 325mg Tab) 650 mg PO Q4H PRN PRN Reason: Pain, moderate (4-7) Last Admin: 11/15/16 22:46 Dose: 650 mg Ascorbic Acid (Vitamin C 500 Mg Tab) 500 mg PO DAILY [facility] Last Admin: 11/19/16 10:26 Dose: 500 mg Aspirin (Aspirin Chewable) 81 mg PO DAILY [facility] Last Admin: 11/19/16 10:24 Dose: 81 mg Atorvastatin Calcium (Lipitor) 40 mg PO DIN [facility] Last Admin: 11/18/16 19:00 Dose: 40 mg Carvedilol (Coreg) 3.125 mg PO BID [facility] Last Admin: 11/19/16 10:25 Dose: 3.125 mg Cefpodoxime Proxetil (Vantin) 100 mg PO Q12 [facility] PRN Reason: Protocol Stop: 11/23/16 22:01 Last Admin: 11/19/16 10:26 Dose: 100 mg Collagenase (Santyl) 0 gm TOP DAILY [facility] Last Admin: 11/18/16 14:09 Dose: 1 applic Ergocalciferol (Drisdol 50,000 Intl Units Cap) 1 cap PO Q7D [facility] Last Admin: 11/12/16 12:08 Dose: 1 cap Ferrous Sulfate (Feosol) 324 mg PO TID [facility] Last Admin: 11/19/16 10:26 Dose: 324 mg Furosemide (Lasix) 80 mg IVP Q12 [facility] Hydralazine HCl (Apresoline) 50 mg PO QID [facility] Last Admin: 11/19/16 10:25 Dose: 50 mg Insulin Human Regular (Humulin R Low) 0 units SC ACHS [facility] PRN Reason: Protocol Last Admin: 11/19/16 08:16 Dose: 1 units Lactobacillus Acidophilus (Bacid Acidophilus) 1 cap PO BID [facility] Last Admin: 11/19/16 10:26 Dose: 1 cap Metolazone (Zaroxolyn) 5 mg PO BID [facility] Last Admin: 11/19/16 10:25 Dose: 5 mg Multi-Ingredient Cream (Hydrocerin Cream) 0 ea TOP DAILY [facility] Last Admin: 11/18/16 14:14 Dose: 1 applic Pantoprazole Sodium (Protonix Ec Tab) 40 mg PO 0600 [facility] Last Admin: 11/19/16 06:23 Dose: 40 mg Spironolactone (Aldactone) 25 mg PO BID [facility] Last Admin: 11/19/16 10:25 Dose: 25 mg Tamsulosin HCl (Flomax) 0.4 mg PO BID [facility] Last Admin: 11/19/16 10:25 Dose: 0.4 mg Zinc Sulfate (Zinc Sulfate 220 Mg Cap) 220 mg PO DAILY [facility] Last Admin: 11/19/16 10:25 Dose: 220 mg - Labs Labs: 11/19/16 06:05 11/19/16 06:05 PT 14.7 Seconds (9.9-11.8) H 11/18/16 09:50 INR 1.36 (0.93-1.08) H 11/18/16 09:50 APTT 31.6 Seconds (23.7-30.8) H 11/18/16 09:50 - Additional Findings Additional findings: Constitutional: a&o x 4, NAD Head and Neck: neck supple, no jvd, trachea midline, carotid midline, no cervical/head mass Eyes: nai, nonicteric sclera, eom intact ENT: auditory acuity grossly intact, throat not congested, no nasal deformity Cardio: rrr, no m/r/g, no carotid bruit, nml s1, s2 Pulm: no accessory muscle use, equal nml breath sounds bilaterally, ctab MSK: +Mild TTP in the lumbar area on the left Extremities- Right UE PICC line in place Abd: s/nt/nd, nbs x 4 q, no palpable masses Extr: 2+ pitting edema; onychomycosis. Bandages just changed by Podiatry. 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 Ascities details- fluid was seen on the renal u/s in Gardiner's pouch - patient scheduled for paracentesis this afternoon - albumin, amylase, lipase, total protein of the peritoneal fluid, cell count, anareobic culture, body fluid/smear, culture fungus, cytology - patient started on cefpodaxime (vantin) as per ID CHF details- Echocardiogram LVEF - 22.4%, 4 chamber dilation, CXR reviewed- [place] [id number], cannot tolerate milronone drip - Patient started on lasix 80mg IV q12h, aldactone 25mg PO BID, metolzone 5mg BID, hydralazine 50mg PO QID, coreg 3.125mg PO BID - Strict I's and O's - Daily Weight - HOB > 45' - Cardiology consulted -appreciate recs - Speak with Dr. Watt regarding potential AICD placement - Nephrology consult- get patient to be euvolemic then assess for secondary causes of hypertension CKD details- stage 4, 2/2 to diabetes and HTN; s/p Aransep 60 mcg (11/12), BUN noted to increase to 125 - Nephrology on board- at d/c switch to PO lasix 80 mg bid and metolazone 2.5 mg once a day. oral fluid restriction to 1000 mL/day. - Monitor Input/Output, daily weights and renal function with basic metabolic panel - Glycemic control Urinary retention details- mortensen in place, draining yellow urine with sediment present in mortensen tube - renal U/S ordered and reviewed- nephrolithasis - continue flomax Left toe abscess, Right foot infection details- osteomyelitis has been ruled out by podo - ID C/s: continue PO Vantin to complete a 7 day course since the Serratia in the wound is sensitive to Rocephin - started zinc as per podo - Podiatry C/s: Right - Right lower extremity cleansed with Sterile normal saline. Santyl and DSD applied to ulcerations bilateral malleolus Left - Left foot cleansed with Sterile normal saline and dressed with Santyl and DSD MRI (-) osteomyelitis Left CWX: Serratia Marcescens b/l feet xray negative for osteomyelitis Hypoalbuminemia - albumin of 2.9 noted for today. - increase protein in diet - will repeat albumin Right Upper Extremity Rash - resolved - patient is currently on cefpodoxamine as per ID DM type 2 - Consistent carb/heart healthy diet - Fingersticks ACHS - Humulin low dose ISS - Oral agents held Chronic Anemia details- curent HgB is 9.3 from 9.7 yesterday, was 7.7 on and was given 2 units pRBCs - Heme/Onc consulted- appreciate recs: Multiple Myeloma has been ruled out- total lilli/prince is elevated but ratio is normal unlikely MM - Cont Feosol - FOBT pending - HIV and Hepatitis neg - Physical therapy History of Hypertension - continue lasix and aldactone - cardio started patient on hydralazine YASMIN - CPAP at night; titrate to maintain O2sat > 90% Low back pain - acetaminophen prn GI/DVT Prophylaxis -Protonix/Heparin SC Dispo: TCU vs [facility] vs Home Consider TCU in the next two days to regain strength and to continue diuresis. Follow up with PMD outpatient. Follow up with Dr. Carreon outpatient Follow up with Dr. Glover seen there for pain. Patient seen and case discussed with attending, Dr. Faith. <Ori Faith - Last Filed: 12/16/16 08:43> Objective - Vital Signs/Intake and Output Vital Signs (last 24 hours): Temp Pulse Resp BP Pulse Ox 98.4 F 73 20 117/67 100 11/20/16 08:25 11/20/16 13:21 11/20/16 08:25 11/20/16 13:21 11/20/16 08:25 - Labs Labs: 11/20/16 06:50 11/20/16 06:50 PT 14.7 Seconds (9.9-11.8) H 11/18/16 09:50 INR 1.36 (0.93-1.08) H 11/18/16 09:50 APTT 31.6 Seconds (23.7-30.8) H 11/18/16 09:50 Attending/Attestation - Attestation I have personally seen and examined this patient.: Yes I have fully participated in the care of the patient.: Yes I have reviewed all pertinent clinical information, including history, physical exam and plan: Yes Notes (Text): 12/16/16 08:43 Medical record note made by the resident after discussion with my ddirection after patient seen and examined by me. The chart accurately reflects my history , physical, data review and plan.
[2016-11-19 12:00] LABS: BODY FLUID TYPE PERITONEAL/ASCITES
[2016-11-19] MEDS ORDERED: Darbepoetin Alfa 60 mcg/ml Inj SC ONE (13:11)
--- NOTE | 2016-11-19 13:11 | CP.PCM.PN ---
Subjective - Date & Time of Evaluation Date of Evaluation: 11/19/16 Time of Evaluation: 13:09 - Subjective Subjective: Follow up Nephrology Consultation: Assessment: Stable Acute Kidney Injury (N17.9) possibly due to Chronic NSAIDs use. also contribution by his severe CHF (cardio-renal) Fluid overload, Anasarca with CHF exacerbation Diabetic chronic Kidney Disease (E11.22) Hypertensive Chronic Kidney Disease (I12.9) Chronic Kidney Disease (N18.4) Stage 4 with 200 proteinuria (R80.9) possibly due to his long standing hx of HTN, atherosclerotic vasc disease Anemia (D64.9), HTN (I12.9), DM, CHF, Morbid obesity, YASMIN on CPAP, back pain, Hypernatremia, heel ulcers, ventral hernia, ascites Vit D def and secondary hyperparathyroidism Plan No acute need for renal replacement therapy at this time. Patient aware that due to his advanced renal insuff, CHF and fluid overload, dialysis to be anticipated in near future. Pt advised to abstain from NSAIDs completely. continue with diuresis with lasix 80 mg bid and oral metolazone 5 mg bid while in-house. Hypertension control with meds as ordered. Patient on RAAS lei with aldactone Agree with oral iron supplements. s/p Aransep 60 mcg (11/12). PRBC as needed. continue with weekly Vit D 50,000 unit x 8 doses. also started on flomax 0.4 mg bid. pt seen by Monitor Input/Output, daily weights and renal function with basic metabolic panel wound care. he is s/p ascitic fluid drainage by IR. At d/c switch to PO lasix 80 mg bid and metolazone 2.5 mg once a day. oral fluid restriction to 1000 mL/day. Dose meds/antibiotics for reduced GFR. Avoid fleets enema/magnesium based laxatives. Avoid nephrotoxins/NSAIDs/ iodinated contrast (unless needed emergently) Glycemic control Further work up/management as per primary team Thanks for allowing me to participate in care of your patient. Please call if any Qs. pt planned for d/c [facility] soon. stable from renal perspective. d/w team. pt to follow up with me in office 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 He has been taking NSAIDs as Advil (3 tab) and alleve (2 tab) per day on most days for last few weeks to control his pain. Subjective: Denies chest pain, palpitation, shortness of breath, says legs and arms swelling feels better had mortensen placed by . s/p ascitic tap 11/19/16. ROS: Constitutional Symptoms: Denies fever. No chills. Eyes: denies change in vision, denies watery eyes, denies double vision Ears/Nose/Mouth/Throat: Denies Abnormal Taste. No Bad breath no Bad Taste. Cardiovascular: No chest pain. There is no shortness of breath at present. No palpitations. Pulmonary: No shortness of breath no cough now. Gastrointestinal: denies abdominal pain No nausea. No vomiting. Denies change in bowel habits. Denies Bleeding Genitourinary: has mortensen now Neurological: Denies headaches. No dizziness. Denies loss of balance. c/o overall weakness, denies tingling/numbness Dermatological: No Rash or Bruising but had heel/feet ulcers. Psychiatric: Denies Anxiety. No depression. Denies hallucinations. Rheumatological: c/o chronic low back pain. Denies Joint swelling Endocrine: denies Heat/Cold Intolerance. All other negative Physical Examination: General Appearance: Comfortable, in no acute respiratory distress, co-operative . morbidly Obese Vitals reviewed and noted as below Head; Atraumatic, normocephalic ENT: no ulcers no thrush. Tongue is midline. Oropharynx: no rash or ulcers. EYES: Pupils are equal, round and reactive to light accommodation. Eye muscles and extraocular movement intact. Sclera is anicteric. Neck; supple no lymphadenopathy, no thyromegaly or bruit Lungs: Normal respiratory rate/effort. Breath sounds bilateral equal and clear except somewhat decreased at bases Heart: Normal rate. s1s2 normal. No rub or gallop. Extremities: 2-3+ edema with chronic venous stasis changes in legs. No varicose veins. both heels dressed. has thigh edema/Anasarca. hands/arms swelling much better Neurological: Patient is alert, awake and oriented to person, place and time. No focal deficit. Strength bilateral appropriate and equal Skin: Warm and dry. Normal turgor. No rash. Palpitation: Normal elasticity for age Abdomen: Abdomen is softer and less distended. has midline ventral hernia. has abdomen wall edema. Bowel sounds +. There is no abdominal tenderness, no guarding/rigidity. Unable to examine/appreciate organomegaly due to obesity/ edema and distension of abdomen Psych: normal insight and normal affect/mood MSK: no joint tenderness or swelling. Digits and nails normal, no deformity : kidney or bladder not palpable but exam very limited. has significant scrotal/penile edema. has mortensen Labs/imaging/EKG reviewed. Past medical history, past surgical history, family history, social history, allergy reviewed and noted as below Family hx: no hx of CKD. Rest non-contributory Work up: UA: no blood or prot Phos 3.5 Mg 2.5 Albumin 3 TSAT 10% Ferritin 101 CXr: pulm congestion Echo: EF 22% Solvay/lambda ratio Normal Renal and bladder sono: PVR 438 ml but also had ascites hence PVR can be false + elevated on sonogram. Vit D 13 PTH 120 Objective - Vital Signs/Intake and Output Vital Signs (last 24 hours): Temp Pulse Resp BP Pulse Ox 97.6 F 82 20 156/88 H 97 11/19/16 07:00 11/19/16 07:00 11/19/16 07:00 11/19/16 10:25 11/19/16 07:00 Intake and Output: 11/19/16 11/19/16 06:59 18:59 Intake Total 660 Output Total 2500 Balance -1840 - Medications Medications: Current Medications Acetaminophen (Tylenol 325mg Tab) 650 mg PO Q4H PRN PRN Reason: Pain, moderate (4-7) Last Admin: 11/15/16 22:46 Dose: 650 mg Ascorbic Acid (Vitamin C 500 Mg Tab) 500 mg PO DAILY [facility] Last Admin: 11/19/16 10:26 Dose: 500 mg Aspirin (Aspirin Chewable) 81 mg PO DAILY [facility] Last Admin: 11/19/16 10:24 Dose: 81 mg Atorvastatin Calcium (Lipitor) 40 mg PO DIN [facility] Last Admin: 11/18/16 19:00 Dose: 40 mg Carvedilol (Coreg) 3.125 mg PO BID [facility] Last Admin: 11/19/16 10:25 Dose: 3.125 mg Cefpodoxime Proxetil (Vantin) 100 mg PO Q12 [facility] PRN Reason: Protocol Stop: 11/23/16 22:01 Last Admin: 11/19/16 10:26 Dose: 100 mg Collagenase (Santyl) 0 gm TOP DAILY [facility] Last Admin: 11/18/16 14:09 Dose: 1 applic Ergocalciferol (Drisdol 50,000 Intl Units Cap) 1 cap PO Q7D [facility] Last Admin: 11/12/16 12:08 Dose: 1 cap Ferrous Sulfate (Feosol) 324 mg PO TID [facility] Last Admin: 11/19/16 10:26 Dose: 324 mg Furosemide (Lasix) 80 mg IVP Q12 [facility] Hydralazine HCl (Apresoline) 50 mg PO QID [facility] Last Admin: 11/19/16 10:25 Dose: 50 mg Insulin Human Regular (Humulin R Low) 0 units SC ACHS [facility] PRN Reason: Protocol Last Admin: 11/19/16 12:41 Dose: Not Given Lactobacillus Acidophilus (Bacid Acidophilus) 1 cap PO BID [facility] Last Admin: 11/19/16 10:26 Dose: 1 cap Metolazone (Zaroxolyn) 5 mg PO BID [facility] Last Admin: 11/19/16 10:25 Dose: 5 mg Multi-Ingredient Cream (Hydrocerin Cream) 0 ea TOP DAILY [facility] Last Admin: 11/18/16 14:14 Dose: 1 applic Pantoprazole Sodium (Protonix Ec Tab) 40 mg PO 0600 [facility] Last Admin: 11/19/16 06:23 Dose: 40 mg Spironolactone (Aldactone) 25 mg PO BID [facility] Last Admin: 11/19/16 10:25 Dose: 25 mg Tamsulosin HCl (Flomax) 0.4 mg PO BID [facility] Last Admin: 11/19/16 10:25 Dose: 0.4 mg Zinc Sulfate (Zinc Sulfate 220 Mg Cap) 220 mg PO DAILY [facility] Last Admin: 11/19/16 10:25 Dose: 220 mg - Labs Labs: 11/19/16 06:05 11/19/16 06:05 PT 14.7 Seconds (9.9-11.8) H 11/18/16 09:50 INR 1.36 (0.93-1.08) H 11/18/16 09:50 APTT 31.6 Seconds (23.7-30.8) H 11/18/16 09:50
[2016-11-19 13:39] LABS: BF GROSS APPEARANCE CLEAR (CLEAR)
[2016-11-19 13:40] LABS: BODY FLUID TOTAL COUNT 100 (0-0)
--- NOTE | 2016-11-19 13:47 | PN ---
DATE: 11/19/2016 SUBJECTIVE: The patient has remained in bed without activity. OBJECTIVE: VITAL SIGNS: Blood pressure 135/74, the heart rate is in the 80s. NECK: Negative JVD. LUNGS: Decreased breath sounds. HEART: Reveal S1, S2. EXTREMITIES: Chronic edema with ulcers. LABORATORY DATA: Hemoglobin is 10.2, BUN and creatinine are 129 over 3.2 with a potassium of 4.5. IMPRESSION: 1. Dilated cardiomyopathy. 2. Resolution of CHF. 3. Severe renal insufficiency. 4. Foot ulcers. 5. Chronic edema in lower extremities. PLAN: Given these findings, I have asked the nurses to call physical therapy to get the patient out of bed into a chair. We need to begin mobilizing the patient. Kamari Watt MD
[2016-11-19] MEDS: Ergocalciferol 50,000 Intl Units Cap PO SCH (13:50)
--- NOTE | 2016-11-19 14:53 | CP.PCM.PN ---
Subjective - Date & Time of Evaluation Date of Evaluation: 11/19/16 Time of Evaluation: 11:25 - Subjective Subjective: Comfortable, not in distress, afebrile, less pain in the feet. Objective - Vital Signs/Intake and Output Vital Signs (last 24 hours): Temp Pulse Resp BP Pulse Ox 97.6 F 82 20 135/74 97 11/19/16 07:00 11/19/16 07:00 11/19/16 07:00 11/19/16 07:00 11/19/16 07:00 Intake and Output: 11/19/16 11/19/16 06:59 18:59 Intake Total 660 Output Total 2500 Balance -1840 - Medications Medications: Current Medications Acetaminophen (Tylenol 325mg Tab) 650 mg PO Q4H PRN PRN Reason: Pain, moderate (4-7) Last Admin: 11/15/16 22:46 Dose: 650 mg Ascorbic Acid (Vitamin C 500 Mg Tab) 500 mg PO DAILY [facility] Last Admin: 11/18/16 09:52 Dose: 500 mg Aspirin (Aspirin Chewable) 81 mg PO DAILY [facility] Last Admin: 11/18/16 09:52 Dose: 81 mg Atorvastatin Calcium (Lipitor) 40 mg PO DIN [facility] Last Admin: 11/18/16 19:00 Dose: 40 mg Carvedilol (Coreg) 3.125 mg PO BID [facility] Last Admin: 11/18/16 17:39 Dose: 3.125 mg Cefpodoxime Proxetil (Vantin) 100 mg PO Q12 [facility] PRN Reason: Protocol Stop: 11/23/16 22:01 Last Admin: 11/18/16 22:08 Dose: 100 mg Collagenase (Santyl) 0 gm TOP DAILY [facility] Last Admin: 11/18/16 14:09 Dose: 1 applic Ergocalciferol (Drisdol 50,000 Intl Units Cap) 1 cap PO Q7D [facility] Last Admin: 11/12/16 12:08 Dose: 1 cap Ferrous Sulfate (Feosol) 324 mg PO TID [facility] Last Admin: 11/18/16 17:38 Dose: 324 mg Furosemide (Lasix) 80 mg PO BID [facility] Last Admin: 11/18/16 17:38 Dose: 80 mg Hydralazine HCl (Apresoline) 50 mg PO QID [facility] Last Admin: 11/18/16 22:07 Dose: 50 mg Insulin Human Regular (Humulin R Low) 0 units SC ACHS [facility] PRN Reason: Protocol Last Admin: 11/19/16 08:16 Dose: 1 units Lactobacillus Acidophilus (Bacid Acidophilus) 1 cap PO BID [facility] Last Admin: 11/18/16 17:39 Dose: 1 cap Metolazone (Zaroxolyn) 5 mg PO BID [facility] Last Admin: 11/18/16 17:36 Dose: 5 mg Multi-Ingredient Cream (Hydrocerin Cream) 0 ea TOP DAILY [facility] Last Admin: 11/18/16 14:14 Dose: 1 applic Pantoprazole Sodium (Protonix Ec Tab) 40 mg PO 0600 [facility] Last Admin: 11/19/16 06:23 Dose: 40 mg Spironolactone (Aldactone) 25 mg PO BID [facility] Last Admin: 11/18/16 17:36 Dose: 25 mg Tamsulosin HCl (Flomax) 0.4 mg PO BID [facility] Last Admin: 11/18/16 17:38 Dose: 0.4 mg Zinc Sulfate (Zinc Sulfate 220 Mg Cap) 220 mg PO DAILY [facility] Last Admin: 11/18/16 09:52 Dose: 220 mg - Labs Labs: 11/19/16 06:05 11/19/16 06:05 PT 14.7 Seconds (9.9-11.8) H 11/18/16 09:50 INR 1.36 (0.93-1.08) H 11/18/16 09:50 APTT 31.6 Seconds (23.7-30.8) H 11/18/16 09:50 - Constitutional Appears: Non-toxic, No Acute Distress - Head Exam Head Exam: NORMAL INSPECTION - Neck Exam Neck Exam: absent: Meningismus - Respiratory Exam Respiratory Exam: Decreased Breath Sounds - Cardiovascular Exam Cardiovascular Exam: +S1, +S2 - GI/Abdominal Exam GI & Abdominal Exam: Soft. absent: Tenderness - Extremities Exam Additional comments: both feet with dressings in place Assessment and Plan - Assessment and Plan (Free Text) Plan: Assessment Probable infected right foot ulcers with Serratia chronic CHF chronic renal failure DM morbid obesity with BMI 40 obstructive sleep apnea on CPAP sciatica HTN S/P left foot debridement (2015) Plan continue PO Vantin to complete a 7 day course (ie. 5 more days) since the Serratia in the wound is sensitive to Rocephin Podiatry to continue local wound care will continue to monitor clinically while the patient is in the hospital
--- NOTE | 2016-11-19 20:37 | US ---
PROCEDURE: Ultrasound guided paracentesis. HISTORY: Cardiomyopathy. New onset ascites. Needs diagnostic and therapeutic paracentesis. PHYSICIAN(S): Kamari Mohan MD. TECHNIQUE: The relative risks and indications for the procedure were explained to the patient and informed written consent obtained. Sonography of the abdomen was performed in a supine position. This revealed a moderate amount of non-loculated ascites, greatest in the right lower quadrant. A puncture site was selected and the area was prepped and draped in the usual sterile fashion. 1% Xylocaine was used to anesthetize the skin and soft tissues. A 7 [place] paracentesis catheter was trocared into the right lower quadrantand 5800 cc of gooden fluid aspirated. The appropriate labs were sent. IMPRESSION: Ultrasound-guided paracentesis in the right lower quadrant. 5800 cc of fluid were aspirated. Labs were sent
[2016-11-20 07:06] LABS: BASO # 0.01 K/mm3 (0.0-2.0); BASO % 0.1 % (0.0-3.0); EOS # 0.4 (0.0-0.7); GRAN # 7.79 (1.4-6.5); GRAN % 86.9 % (50.0-68.0); HEMATOCRIT 29.7 % (42.0-52.0); LYMPH # 0.5 (1.2-3.4); MEAN CELL VOLUME 89.5 fl (80.0-105.0); MEAN CORPUSCULAR HEMOGLOBIN 28.3 pg (25.0-35.0); MEAN CORPUSCULAR HGB CONC 31.6 g/dl (31.0-37.0); MEAN PLATELET VOLUME 9.9 fl (7.0-11.0); MONO # 0.4 (0.1-0.6); PLATELET COUNT 150 10^3/uL (120.0-450.0); RED CELL DISTRIBUTION WIDTH 18.1 % (11.5-14.5)
[2016-11-20 07:22] LABS: ALB/GLOB RATIO 0.7 (1.1-1.8); CALCIUM 8.5 mg/dL (8.4-10.5); MAGNESIUM 2.1 mg/dL (1.7-2.2); POTASSIUM 4.3 mmol/L (3.6-5.0); TOTAL PROTEIN 6.8 g/dL (5.8-8.3)
[2016-11-20] MEDS: Insulin Reg-LOW-Coverage SC SCH ×2 (08:05→11:41)
[2016-11-20 08:26] VITALS: RESP 20; TEMP 98.4; O2SAT 100
[2016-11-20 08:53] LABS: ANISOCYTOSIS 1+; EOSINOPHIL 4 % (0.0-3.0); HYPOCHROMIA 1+; NEUTROPHIL 86 % (50.0-70.0); OVALOCYTES SLIGHT; PLATELET ESTIMATE NORMAL (NORMAL); POIKILOCYTOSIS SLIGHT
[2016-11-20 08:54] LABS: TOXIC GRANULATION SLIGHT
[2016-11-20] MEDS: Lactobacillus Acidophilus 500 MU Cap PO SCH (10:01)
[2016-11-20] MEDS: Hydrocerin(120 gm) TOP SCH (10:06)
[2016-11-20] MEDS: Pantoprazole 40 mg EC Tab PO SCH (10:08)
[2016-11-20] MEDS: Cefpodoxime (Vantin) 100 mg Tab PO SCH (10:09)
[2016-11-20] MEDS: metOLazone 5 MG TAB PO SCH (10:10)
[2016-11-20] MEDS: Prostat 15 g packet GT SCH (10:19)
[2016-11-20] MEDS: Collagenase 250 Units/gm Ointment(30 gm) TOP SCH (10:33)
--- NOTE | 2016-11-20 11:12 | CP.PCM.DIS ---
<Ck Doty - Last Filed: 11/20/16 11:34> Provider - Provider Date of Admission: 11/08/16 14:15 Attending physician: Ori Faith MD Time Spent in preparation of Discharge (in minutes): 30 Diagnosis - Discharge Diagnosis (1) Ascites Status: Acute Priority: Medium (2) CHF (congestive heart failure) Status: Acute Priority: Medium (3) Renal insufficiency Status: Acute Priority: Medium (4) Diabetes Status: Acute Priority: Medium (5) Hypertension Status: Acute Priority: Medium (6) Abscess Status: Acute Priority: Medium Hospital Course - Lab Results Lab Results: Micro Results 11/19/16 11:39 Ascitic Fluid Gram Stain - Final 11/19/16 11:39 Ascitic Fluid Body Fluid Culture - Preliminary NO GROWTH AFTER 24 HOURS 11/14/16 17:30 Urine,Mortensen Urine Culture - Final No Growth (<1,000 CFU/ML) 11/13/16 17:05 Urine,Clean Catch Urine Culture - Final No Growth (<1,000 CFU/ML) 11/08/16 23:00 Toe Gram Stain - Final 11/08/16 23:00 Toe Wound Culture - Final Serratia Marcescens Most Recent Lab Values WBC 9.0 10^3/ul (4.5-11.0) 11/20/16 06:50 RBC 3.32 10^6/uL (3.5-6.1) L 11/20/16 06:50 Hgb 9.4 g/dL (14.0-18.0) L 11/20/16 06:50 Hct 29.7 % (42.0-52.0) L 11/20/16 06:50 MCV 89.5 fl (80.0-105.0) 11/20/16 06:50 MCH 28.3 pg (25.0-35.0) 11/20/16 06:50 MCHC 31.6 g/dl (31.0-37.0) 11/20/16 06:50 RDW 18.1 % (11.5-14.5) H 11/20/16 06:50 Plt Count 150 10^3/uL (120.0-450.0) 11/20/16 06:50 MPV 9.9 fl (7.0-11.0) 11/20/16 06:50 Gran % 86.9 % (50.0-68.0) H 11/20/16 06:50 Lymph % (Auto) 5.0 % (22.0-35.0) L 11/20/16 06:50 [place] % (Auto) 4.0 % (1.0-6.0) 11/20/16 06:50 Eos % (Auto) 4.0 % (1.5-5.0) 11/20/16 06:50 Baso % (Auto) 0.1 % (0.0-3.0) 11/20/16 06:50 Gran # 7.79 (1.4-6.5) H 11/20/16 06:50 Lymph # 0.5 (1.2-3.4) L 11/20/16 06:50 [place] # 0.4 (0.1-0.6) 11/20/16 06:50 Eos # 0.4 (0.0-0.7) 11/20/16 06:50 Baso # 0.01 K/mm3 (0.0-2.0) 11/20/16 06:50 Corrected WBC (Man) Cancelled 11/08/16 11:30 Neutrophils % (Manual) 86 % (50.0-70.0) H 11/20/16 06:50 Band Neutrophils % Cancelled 11/08/16 11:30 Lymphocytes % (Manual) 4 % (22.0-35.0) L 11/20/16 06:50 Atypical Lymphs % Cancelled 11/08/16 11:30 Monocytes % (Manual) 6 % (1.0-6.0) 11/20/16 06:50 Eosinophils % (Manual) 4 % (0.0-3.0) H 11/20/16 06:50 Basophils % (Manual) Cancelled 11/08/16 11:30 Metamyelocytes % Cancelled 11/08/16 11:30 Myelocytes % Cancelled 11/08/16 11:30 Promyelocytes % Cancelled 11/08/16 11:30 Nucleated RBC % Cancelled 11/08/16 11:30 Hypersegmented Polys Cancelled 11/08/16 11:30 Immature Lymphocytes Cancelled 11/08/16 11:30 Blast Cells Cancelled 11/08/16 11:30 Smudge Cells Cancelled 11/08/16 11:30 Toxic Granulation Slight 11/20/16 06:50 Dohle Bodies Cancelled 11/08/16 11:30 Belkis Rods Cancelled 11/08/16 11:30 Platelet Evaluation Normal (NORMAL) 11/20/16 06:50 Plt Clumps, EDTA Cancelled 11/08/16 11:30 Large Platelets Present 11/13/16 05:33 Giant Platelets Cancelled 11/08/16 11:30 Polychromasia Slight 11/13/16 05:33 Hypochromasia 1+ 11/20/16 06:50 Hyperchromasia Cancelled 11/08/16 11:30 Poikilocytosis (manual Slight 11/20/16 06:50 Basophilic Stippling Cancelled 11/08/16 11:30 Anisocytosis (manual) 1+ 11/20/16 06:50 Microcytosis (manual) Cancelled 11/08/16 11:30 Macrocytosis (manual) Cancelled 11/08/16 11:30 Spherocytes Cancelled 11/08/16 11:30 Sickle Cells Cancelled 11/08/16 11:30 Target Cells Cancelled 11/08/16 11:30 Tear Drop Cells Slight 11/09/16 07:10 Ovalocytes Slight 11/20/16 06:50 Stomatocytes Cancelled 11/08/16 11:30 Helmet Cells Slight 11/09/16 07:10 [place] Rings Cancelled 11/08/16 11:30 [place] Cells Cancelled 11/08/16 11:30 Acanthocytes (Spur) Cancelled 11/08/16 11:30 Rouleaux Cancelled 11/08/16 11:30 Retic Count 2.00 % (0.5-1.5) H 11/08/16 11:30 Sickle Cell Screen Negative (Negative) 11/12/16 12:30 PT 14.7 Seconds (9.9-11.8) H 11/18/16 09:50 INR 1.36 (0.93-1.08) H 11/18/16 09:50 APTT 31.6 Seconds (23.7-30.8) H 11/18/16 09:50 Sodium 140 mmol/L (132-148) 11/20/16 06:50 Potassium 4.3 mmol/L (3.6-5.0) 11/20/16 06:50 Chloride 105 mmol/L (98-107) 11/20/16 06:50 Carbon Dioxide 24 mmol/L (21-33) 11/20/16 06:50 Anion Gap 15 (10-20) 11/20/16 06:50 BUN 121 mg/dL (7-21) H* 11/20/16 06:50 Creatinine 3.1 mg/dL (0.5-1.4) H 11/20/16 06:50 Est GFR ( Amer) 11/20/16 06:50 Est GFR (Non-Af Amer) 11/20/16 06:50 POC Glucose (mg/dL) 163 mg/dL (65-110) H 11/20/16 07:23 Random Glucose 157 mg/dL (70-110) H 11/20/16 06:50 Hemoglobin A1c 7.1 % (4.2-6.5) H 11/11/16 06:15 Calcium 8.5 mg/dL (8.4-10.5) 11/20/16 06:50 Phosphorus 3.7 mg/dL (2.5-4.5) 11/13/16 05:33 Magnesium 2.1 mg/dL (1.7-2.2) 11/20/16 06:50 Iron 16 ug/dL (45-180) L 11/12/16 Unknown TIBC 245 ug/dL (261-462) L 11/12/16 Unknown % Saturation 6 % (20-55) L 11/12/16 Unknown Transferrin 194.36 mg/dL (206-381) L 11/09/16 07:20 Ferritin 191.0 ng/mL 11/12/16 12:40 Total Bilirubin 1.0 mg/dL (0.2-1.3) 11/20/16 06:50 AST 32 U/L (17-59) 11/20/16 06:50 ALT 30 U/L (7-56) 11/20/16 06:50 Alkaline Phosphatase 184 U/L (38-126) H 11/20/16 06:50 Lactate Dehydrogenase 1096 U/L (333-699) H 11/08/16 11:30 Total Creatine Kinase 278 U/L (35-230) H 11/08/16 11:30 CK-MB (CK-2) 5.3 ng/mL (0.0-3.6) H 11/08/16 11:30 CK-MB (CK-2) % 1.9 % (2.5-3.0) L 11/08/16 11:30 Troponin I 0.08 ng/mL 11/09/16 01:08 NT-Pro-B Natriuret Pep 68459 pg/mL (0-450) H 11/08/16 13:00 Total Protein 6.8 g/dL (5.8-8.3) 11/20/16 06:50 Total Protein (PEP) 7.3 g/dL (6.1-8.1) 11/09/16 13:00 Albumin 2.7 g/dL (3.0-4.8) L 11/20/16 06:50 Albumin (PEP) 3.0 g/dL (3.8-4.8) L 11/09/16 13:00 Globulin 4.0 gm/dL 11/20/16 06:50 Albumin/Globulin Ratio 0.7 (1.1-1.8) L 11/20/16 06:50 Uvtxc-8-Lgqrbxlxg 0.4 g/dL (0.2-0.3) H 11/09/16 13:00 Ulqpn-7-Pjauqolvf 0.5 g/dL (0.5-0.9) 11/09/16 13:00 Qqte-8-Plwypvgh 0.4 g/dL (0.4-0.6) 11/09/16 13:00 Ptrb-1-Oshippgg 0.5 g/dL (0.2-0.5) 11/09/16 13:00 Gamma Globulins 2.5 g/dL (0.8-1.7) H 11/09/16 13:00 Abnorm Protein Band 1 TEST NOT PERFORMED 11/09/16 13:00 Abnorm Protein Band 2 TEST NOT PERFORMED 11/09/16 13:00 Abnorm Protein Band 3 TEST NOT PERFORMED 11/09/16 13:00 Triglycerides 79 mg/dL (35-160) 11/08/16 16:00 Cholesterol 112 mg/dL (130-200) L 11/08/16 16:00 LDL Cholesterol Direct 54 mg/dL (0-129) 11/08/16 16:00 HDL Cholesterol 24 mg/dL (29-60) L 11/08/16 16:00 Free PSA 1.2 ng/mL 11/17/16 06:25 % Free PSA 25 Percent (>25) L 11/17/16 06:25 Total PSA 4.8 ng/mL (<=4.0) H 11/17/16 06:25 Prostate Cancer Risk 16 Percent 11/17/16 06:25 Vitamin B12 > 1000 pg/mL (239-931) H 11/12/16 12:40 25-OH Vitamin D Total 13.4 NG/ML (30.0-100.0) L 11/09/16 13:00 RBC Folate 772 ng/mL RBC (>280) 11/12/16 12:40 TSH 3rd Generation 3.93 mIU/mL (0.46-4.68) 11/08/16 16:00 PTH Intact Whole Molec 127 pg/mL (14-64) H 11/09/16 13:00 Urine Color Yellow (YELLOW) 11/15/16 15:10 Urine Appearance Clear (CLEAR) 11/15/16 15:10 Urine pH 5.0 (4.7-8.0) 11/15/16 15:10 Ur Specific [place] 1.010 (1.005-1.035) 11/15/16 15:10 Urine Protein Negative mg/dL (<30 mg/dL) 11/15/16 15:10 Urine Glucose (UA) Negative mg/dL (NEGATIVE) 11/15/16 15:10 Urine Ketones Negative mg/dL (NEGATIVE) 11/15/16 15:10 Urine Blood Small (NEGATIVE) H 11/15/16 15:10 Urine Nitrate Negative (NEGATIVE) 11/15/16 15:10 Urine Bilirubin Negative (NEGATIVE) 11/15/16 15:10 Urine Urobilinogen 1.0 E.U./dL (<1 E.U./dL) H 11/15/16 15:10 Ur Leukocyte Esterase Negative Caio/uL (NEGATIVE) 11/15/16 15:10 Urine RBC 15 - 20 /hpf (0-2) 11/15/16 15:10 Urine WBC 1 - 3 /hpf (0-6) 11/15/16 15:10 Ur Epithelial Cells 1 - 3 /hpf (0-5) 11/15/16 15:10 Urine Bacteria Mod (NEG) 11/15/16 15:10 Ur Random Creatinine 107 mg/dL 11/11/16 20:30 U Random Total Protein 203 mg/g creat (22-128) H 11/09/16 16:30 Ur Random Sodium 65 meq/L 11/08/16 20:58 Ur Random Urea Nitrogn 655 mg/dL 11/08/16 20:58 Urine Microalbumin 53.5 mg/L (0.0-16.6) H 11/09/16 16:30 U Free [place] Light Ch TNP 11/10/16 06:00 U Free Lambda Light Ch TNP 11/10/16 06:00 U Free [place]/Lambda TNP 11/10/16 06:00 Fluid Source Peritoneal/ascites 11/19/16 11:39 Fluid Appearance Clear (CLEAR) 11/19/16 11:39 Fluid WBC 190.0 /uL (0.0-300.0) 11/19/16 11:39 Fluid RBC 1917.0 /uL (0.0-0.0) H 11/19/16 11:39 Fluid Tot Cell Count 100 (0-0) H 11/19/16 11:39 Fluid Neutrophils 27.4 % (0-0) H 11/19/16 11:39 Fluid Lymphocytes 72.6 % (0-0) H 11/19/16 11:39 Fld Monocyte/Macrophag TEST NOT PERFORMED 11/19/16 11:39 Fluid Comment Mesothelial cells 11/19/16 11:39 Stool Occult Blood Negative (NEGATIVE) 11/13/16 10:30 Digoxin 0.8 ng/mL (0.8-2.0) 11/08/16 11:30 DOMINIQUE & SPEP Interp See note 11/09/16 13:00 Serum Immunofixation Detected (Not Detected) H 11/09/16 13:00 Urine Immunofixation Detected (Not Detected) H 11/12/16 19:00 Tot [place]/Lambda Ratio 1.70 (1.29-2.55) 11/09/16 13:00 [place] Light Chain Anal 678 mg/dL (176-443) H 11/09/16 13:00 Lambda Light Chain Anal 400 mg/dL (91-240) H 11/09/16 13:00 Hepatitis A IgM Ab Negative (NEGATIVE) 11/09/16 07:10 Hep Bs Antigen Negative (NEGATIVE) 11/10/16 06:50 Hep Bs Antibody Positive (NEGATIVE) 11/10/16 06:50 Hep B Core IgM Ab Negative (NEGATIVE) 11/10/16 06:50 Hepatitis C Antibody Negative (NEGATIVE) 11/10/16 06:50 HIV 1&2 Ag/Ab, 4th Gen Nonreactive (Nonreactive) 11/10/16 06:00 HIV 1&2 Antibody Screen Negative (NEGATIVE) 11/10/16 06:50 Blood Type A POSITIVE 11/12/16 12:10 Blood Type Confirm A POSITIVE 11/12/16 12:25 Antibody Screen Negative 11/12/16 12:10 Crossmatch See Detail 11/12/16 12:10 BBK History Checked No verified bt 11/12/16 12:10 - Hospital Course Hospital Course: Patient is a 65 year old male with a PMHx of CHF, CKD, YASMIN, HTN, DM2 who was admitted to the hospital for evaluation and treatment of 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 During his hospital stay the patient was seen by cardiology, nephrology, infection disease , interventional radiology, nephrology, and hematology/oncology. He underwent diuretic therapy for reduce the anasarca. Patient underwent a therapeutic and diagnostic paracentesis, which provided the patient with symptomatic relief. Patient understands and agrees with discharge plan. Patient instructed to take medications as prescribed. Patient advised to call PMD or return to the emergency department for evaluation of fever, chills, chest pain, SOB, abdominal pain, N/V, diarrhea, constipation, and urinary symptoms. Discharge Exam - Head Exam Head Exam: NORMAL INSPECTION - Additional Findings Additional findings: Constitutional: a&o x 4, NAD Head and Neck: neck supple, no jvd, trachea midline, carotid midline, no cervical/head mass Eyes: nai, nonicteric sclera, eom intact ENT: auditory acuity grossly intact, throat not congested, no nasal deformity Cardio: rrr, no m/r/g, no carotid bruit, nml s1, s2 Pulm: no accessory muscle use, equal nml breath sounds bilaterally, ctab MSK: +Mild TTP in the lumbar area on the left Extremities- Right UE PICC line in place Abd: s/nt/nd, nbs x 4 q, no palpable masses Extr: 2+ pitting edema; onychomycosis. Bandages just changed by Podiatry. Neuro: cn II-XII grossly intact, ue and le 5/5 muscle strength bilaterally, no los ue, le bilaterally and core : mortensen in place, yellow urine noted in container, sediment was noted in mortensen tubing Discharge Plan - Discharge Medications Prescriptions: Spironolactone [Aldactone] 25 mg PO BID #60 tab hydrALAZINE [Apresoline] 50 mg PO QID #120 tab Carvedilol [Coreg] 3.125 mg PO BID #60 tab Ergocalciferol [Drisdol 50,000 Intl Units Cap] 1 cap PO Q7D #4 cap Ferrous Sulfate [Feosol] 324 mg PO BID #60 ect Tamsulosin [Flomax] 0.4 mg PO BID #30 cap Furosemide [Lasix] 80 mg PO Q12 #60 vial Atorvastatin [Lipitor] 40 mg PO DIN #30 tab Pantoprazole [Protonix EC Tab] 40 mg PO 0600 #30 ect Cefpodoxime [Vantin] 100 mg PO Q12 #8 tab metOLazone [Zaroxolyn] 2.5 mg PO DAILY #30 tab - Follow Up Plan Condition: SERIOUS Disposition: REHAB FACILITY/REHAB UNIT Instructions: Heart Failure (DC), Heart Failure (GEN), Pacemaker (DC), Pacemaker (GEN), Pulmonary Edema (DC), Pulmonary Edema (GEN), Renal Failure Diet (DC), Ascites (DC), Ascites (GEN) Additional Instructions: Take medications as prescribed. Call PMD or return to the emergency department for evaluation of fever, chills, chest pain, SOB, abdominal pain, N/V, diarrhea, constipation, and urinary symptoms. Please follow up with PMD within 1 week. <Ricky Avery - Last Filed: 11/20/16 11:52> Provider - Provider Date of Admission: 11/08/16 14:15 Attending physician: Ori Faith MD Hospital Course - Lab Results Lab Results: Micro Results 11/19/16 11:39 Ascitic Fluid Gram Stain - Final 11/19/16 11:39 Ascitic Fluid Body Fluid Culture - Preliminary NO GROWTH AFTER 24 HOURS 11/14/16 17:30 Urine,Mortensen Urine Culture - Final No Growth (<1,000 CFU/ML) 11/13/16 17:05 Urine,Clean Catch Urine Culture - Final No Growth (<1,000 CFU/ML) 11/08/16 23:00 Toe Gram Stain - Final 11/08/16 23:00 Toe Wound Culture - Final Serratia Marcescens Most Recent Lab Values WBC 9.0 10^3/ul (4.5-11.0) 11/20/16 06:50 RBC 3.32 10^6/uL (3.5-6.1) L 11/20/16 06:50 Hgb 9.4 g/dL (14.0-18.0) L 11/20/16 06:50 Hct 29.7 % (42.0-52.0) L 11/20/16 06:50 MCV 89.5 fl (80.0-105.0) 11/20/16 06:50 MCH 28.3 pg (25.0-35.0) 11/20/16 06:50 MCHC 31.6 g/dl (31.0-37.0) 11/20/16 06:50 RDW 18.1 % (11.5-14.5) H 11/20/16 06:50 Plt Count 150 10^3/uL (120.0-450.0) 11/20/16 06:50 MPV 9.9 fl (7.0-11.0) 11/20/16 06:50 Gran % 86.9 % (50.0-68.0) H 11/20/16 06:50 Lymph % (Auto) 5.0 % (22.0-35.0) L 11/20/16 06:50 [place] % (Auto) 4.0 % (1.0-6.0) 11/20/16 06:50 Eos % (Auto) 4.0 % (1.5-5.0) 11/20/16 06:50 Baso % (Auto) 0.1 % (0.0-3.0) 11/20/16 06:50 Gran # 7.79 (1.4-6.5) H 11/20/16 06:50 Lymph # 0.5 (1.2-3.4) L 11/20/16 06:50 [place] # 0.4 (0.1-0.6) 11/20/16 06:50 Eos # 0.4 (0.0-0.7) 11/20/16 06:50 Baso # 0.01 K/mm3 (0.0-2.0) 11/20/16 06:50 Corrected WBC (Man) Cancelled 11/08/16 11:30 Neutrophils % (Manual) 86 % (50.0-70.0) H 11/20/16 06:50 Band Neutrophils % Cancelled 11/08/16 11:30 Lymphocytes % (Manual) 4 % (22.0-35.0) L 11/20/16 06:50 Atypical Lymphs % Cancelled 11/08/16 11:30 Monocytes % (Manual) 6 % (1.0-6.0) 11/20/16 06:50 Eosinophils % (Manual) 4 % (0.0-3.0) H 11/20/16 06:50 Basophils % (Manual) Cancelled 11/08/16 11:30 Metamyelocytes % Cancelled 11/08/16 11:30 Myelocytes % Cancelled 11/08/16 11:30 Promyelocytes % Cancelled 11/08/16 11:30 Nucleated RBC % Cancelled 11/08/16 11:30 Hypersegmented Polys Cancelled 11/08/16 11:30 Immature Lymphocytes Cancelled 11/08/16 11:30 Blast Cells Cancelled 11/08/16 11:30 Smudge Cells Cancelled 11/08/16 11:30 Toxic Granulation Slight 11/20/16 06:50 Dohle Bodies Cancelled 11/08/16 11:30 Belkis Rods Cancelled 11/08/16 11:30 Platelet Evaluation Normal (NORMAL) 11/20/16 06:50 Plt Clumps, EDTA Cancelled 11/08/16 11:30 Large Platelets Present 11/13/16 05:33 Giant Platelets Cancelled 11/08/16 11:30 Polychromasia Slight 11/13/16 05:33 Hypochromasia 1+ 11/20/16 06:50 Hyperchromasia Cancelled 11/08/16 11:30 Poikilocytosis (manual Slight 11/20/16 06:50 Basophilic Stippling Cancelled 11/08/16 11:30 Anisocytosis (manual) 1+ 11/20/16 06:50 Microcytosis (manual) Cancelled 11/08/16 11:30 Macrocytosis (manual) Cancelled 11/08/16 11:30 Spherocytes Cancelled 11/08/16 11:30 Sickle Cells Cancelled 11/08/16 11:30 Target Cells Cancelled 11/08/16 11:30 Tear Drop Cells Slight 11/09/16 07:10 Ovalocytes Slight 11/20/16 06:50 Stomatocytes Cancelled 11/08/16 11:30 Helmet Cells Slight 11/09/16 07:10 [place] Rings Cancelled 11/08/16 11:30 [place] Cells Cancelled 11/08/16 11:30 Acanthocytes (Spur) Cancelled 11/08/16 11:30 Rouleaux Cancelled 11/08/16 11:30 Retic Count 2.00 % (0.5-1.5) H 11/08/16 11:30 Sickle Cell Screen Negative (Negative) 11/12/16 12:30 PT 14.7 Seconds (9.9-11.8) H 11/18/16 09:50 INR 1.36 (0.93-1.08) H 11/18/16 09:50 APTT 31.6 Seconds (23.7-30.8) H 11/18/16 09:50 Sodium 140 mmol/L (132-148) 11/20/16 06:50 Potassium 4.3 mmol/L (3.6-5.0) 11/20/16 06:50 Chloride 105 mmol/L (98-107) 11/20/16 06:50 Carbon Dioxide 24 mmol/L (21-33) 11/20/16 06:50 Anion Gap 15 (10-20) 11/20/16 06:50 BUN 121 mg/dL (7-21) H* 11/20/16 06:50 Creatinine 3.1 mg/dL (0.5-1.4) H 11/20/16 06:50 Est GFR ( Amer) 11/20/16 06:50 Est GFR (Non-Af Amer) 11/20/16 06:50 POC Glucose (mg/dL) 163 mg/dL (65-110) H 11/20/16 07:23 Random Glucose 157 mg/dL (70-110) H 11/20/16 06:50 Hemoglobin A1c 7.1 % (4.2-6.5) H 11/11/16 06:15 Calcium 8.5 mg/dL (8.4-10.5) 11/20/16 06:50 Phosphorus 3.7 mg/dL (2.5-4.5) 11/13/16 05:33 Magnesium 2.1 mg/dL (1.7-2.2) 11/20/16 06:50 Iron 16 ug/dL (45-180) L 11/12/16 Unknown TIBC 245 ug/dL (261-462) L 11/12/16 Unknown % Saturation 6 % (20-55) L 11/12/16 Unknown Transferrin 194.36 mg/dL (206-381) L 11/09/16 07:20 Ferritin 191.0 ng/mL 11/12/16 12:40 Total Bilirubin 1.0 mg/dL (0.2-1.3) 11/20/16 06:50 AST 32 U/L (17-59) 11/20/16 06:50 ALT 30 U/L (7-56) 11/20/16 06:50 Alkaline Phosphatase 184 U/L (38-126) H 11/20/16 06:50 Lactate Dehydrogenase 1096 U/L (333-699) H 11/08/16 11:30 Total Creatine Kinase 278 U/L (35-230) H 11/08/16 11:30 CK-MB (CK-2) 5.3 ng/mL (0.0-3.6) H 11/08/16 11:30 CK-MB (CK-2) % 1.9 % (2.5-3.0) L 11/08/16 11:30 Troponin I 0.08 ng/mL 11/09/16 01:08 NT-Pro-B Natriuret Pep 68239 pg/mL (0-450) H 11/08/16 13:00 Total Protein 6.8 g/dL (5.8-8.3) 11/20/16 06:50 Total Protein (PEP) 7.3 g/dL (6.1-8.1) 11/09/16 13:00 Albumin 2.7 g/dL (3.0-4.8) L 11/20/16 06:50 Albumin (PEP) 3.0 g/dL (3.8-4.8) L 11/09/16 13:00 Globulin 4.0 gm/dL 11/20/16 06:50 Albumin/Globulin Ratio 0.7 (1.1-1.8) L 11/20/16 06:50 Eytwx-4-Aunvlihkh 0.4 g/dL (0.2-0.3) H 11/09/16 13:00 Hbppk-8-Csxsqtvlv 0.5 g/dL (0.5-0.9) 11/09/16 13:00 Ucxt-3-Smnxiwlx 0.4 g/dL (0.4-0.6) 11/09/16 13:00 Kche-2-Nynsfmkc 0.5 g/dL (0.2-0.5) 11/09/16 13:00 Gamma Globulins 2.5 g/dL (0.8-1.7) H 11/09/16 13:00 Abnorm Protein Band 1 TEST NOT PERFORMED 11/09/16 13:00 Abnorm Protein Band 2 TEST NOT PERFORMED 11/09/16 13:00 Abnorm Protein Band 3 TEST NOT PERFORMED 11/09/16 13:00 Triglycerides 79 mg/dL (35-160) 11/08/16 16:00 Cholesterol 112 mg/dL (130-200) L 11/08/16 16:00 LDL Cholesterol Direct 54 mg/dL (0-129) 11/08/16 16:00 HDL Cholesterol 24 mg/dL (29-60) L 11/08/16 16:00 Free PSA 1.2 ng/mL 11/17/16 06:25 % Free PSA 25 Percent (>25) L 11/17/16 06:25 Total PSA 4.8 ng/mL (<=4.0) H 11/17/16 06:25 Prostate Cancer Risk 16 Percent 11/17/16 06:25 Vitamin B12 > 1000 pg/mL (239-931) H 11/12/16 12:40 25-OH Vitamin D Total 13.4 NG/ML (30.0-100.0) L 11/09/16 13:00 RBC Folate 772 ng/mL RBC (>280) 11/12/16 12:40 TSH 3rd Generation 3.93 mIU/mL (0.46-4.68) 11/08/16 16:00 PTH Intact Whole Molec 127 pg/mL (14-64) H 11/09/16 13:00 Urine Color Yellow (YELLOW) 11/15/16 15:10 Urine Appearance Clear (CLEAR) 11/15/16 15:10 Urine pH 5.0 (4.7-8.0) 11/15/16 15:10 Ur Specific [place] 1.010 (1.005-1.035) 11/15/16 15:10 Urine Protein Negative mg/dL (<30 mg/dL) 11/15/16 15:10 Urine Glucose (UA) Negative mg/dL (NEGATIVE) 11/15/16 15:10 Urine Ketones Negative mg/dL (NEGATIVE) 11/15/16 15:10 Urine Blood Small (NEGATIVE) H 11/15/16 15:10 Urine Nitrate Negative (NEGATIVE) 11/15/16 15:10 Urine Bilirubin Negative (NEGATIVE) 11/15/16 15:10 Urine Urobilinogen 1.0 E.U./dL (<1 E.U./dL) H 11/15/16 15:10 Ur Leukocyte Esterase Negative Caio/uL (NEGATIVE) 11/15/16 15:10 Urine RBC 15 - 20 /hpf (0-2) 11/15/16 15:10 Urine WBC 1 - 3 /hpf (0-6) 11/15/16 15:10 Ur Epithelial Cells 1 - 3 /hpf (0-5) 11/15/16 15:10 Urine Bacteria Mod (NEG) 11/15/16 15:10 Ur Random Creatinine 107 mg/dL 11/11/16 20:30 U Random Total Protein 203 mg/g creat (22-128) H 11/09/16 16:30 Ur Random Sodium 65 meq/L 11/08/16 20:58 Ur Random Urea Nitrogn 655 mg/dL 11/08/16 20:58 Urine Microalbumin 53.5 mg/L (0.0-16.6) H 11/09/16 16:30 U Free [place] Light Ch TNP 11/10/16 06:00 U Free Lambda Light Ch TNP 11/10/16 06:00 U Free [place]/Lambda TNP 11/10/16 06:00 Fluid Source Peritoneal/ascites 11/19/16 11:39 Fluid Appearance Clear (CLEAR) 11/19/16 11:39 Fluid WBC 190.0 /uL (0.0-300.0) 11/19/16 11:39 Fluid RBC 1917.0 /uL (0.0-0.0) H 11/19/16 11:39 Fluid Tot Cell Count 100 (0-0) H 11/19/16 11:39 Fluid Neutrophils 27.4 % (0-0) H 11/19/16 11:39 Fluid Lymphocytes 72.6 % (0-0) H 11/19/16 11:39 Fld Monocyte/Macrophag TEST NOT PERFORMED 11/19/16 11:39 Fluid Comment Mesothelial cells 11/19/16 11:39 Stool Occult Blood Negative (NEGATIVE) 11/13/16 10:30 Digoxin 0.8 ng/mL (0.8-2.0) 11/08/16 11:30 DOMINIQUE & SPEP Interp See note 11/09/16 13:00 Serum Immunofixation Detected (Not Detected) H 11/09/16 13:00 Urine Immunofixation Detected (Not Detected) H 11/12/16 19:00 Tot [place]/Lambda Ratio 1.70 (1.29-2.55) 11/09/16 13:00 [place] Light Chain Anal 678 mg/dL (176-443) H 11/09/16 13:00 Lambda Light Chain Anal 400 mg/dL (91-240) H 11/09/16 13:00 Hepatitis A IgM Ab Negative (NEGATIVE) 11/09/16 07:10 Hep Bs Antigen Negative (NEGATIVE) 11/10/16 06:50 Hep Bs Antibody Positive (NEGATIVE) 11/10/16 06:50 Hep B Core IgM Ab Negative (NEGATIVE) 11/10/16 06:50 Hepatitis C Antibody Negative (NEGATIVE) 11/10/16 06:50 HIV 1&2 Ag/Ab, 4th Gen Nonreactive (Nonreactive) 11/10/16 06:00 HIV 1&2 Antibody Screen Negative (NEGATIVE) 11/10/16 06:50 Blood Type A POSITIVE 11/12/16 12:10 Blood Type Confirm A POSITIVE 11/12/16 12:25 Antibody Screen Negative 11/12/16 12:10 Crossmatch See Detail 11/12/16 12:10 BBK History Checked No verified bt 11/12/16 12:10 - Hospital Course Hospital Course: discussed w/ resident to follow up w/ labs in 2 days at [place] will see dr gupta next week Discharge Plan - Follow Up Plan Patient education suggested?: Yes
--- NOTE | 2016-11-20 11:23 | CP.PCM.PN ---
<Mouna Vazquez - Last Filed: 11/20/16 11:21> Subjective - Date & Time of Evaluation Date of Evaluation: 11/20/16 Time of Evaluation: 11:21 - Subjective Subjective: Podiatry Progress Note - Dr. Amos 65 year old male patient seen at bedside this morning with Dr. Amos, for ulcerations to bimalleolar right lower extremity and ulceration to left dorsal aspect of 1st ray. AAOx3 and NAD. Patient denies any pain to his foot today. Patient denies N/V/F/D/C/SOB. No other pedal complaints at this time. Objective - Vital Signs/Intake and Output Vital Signs (last 24 hours): Temp Pulse Resp BP Pulse Ox 98.4 F 80 20 133/70 100 11/20/16 08:25 11/20/16 10:01 11/20/16 08:25 11/20/16 10:07 11/20/16 08:25 Intake and Output: 11/20/16 11/20/16 06:59 18:59 Intake Total 600 Output Total 1500 Balance -900 - Medications Medications: Current Medications Acetaminophen (Tylenol 325mg Tab) 650 mg PO Q4H PRN PRN Reason: Pain, moderate (4-7) Last Admin: 11/15/16 22:46 Dose: 650 mg Ascorbic Acid (Vitamin C 500 Mg Tab) 500 mg PO DAILY [facility] Last Admin: 11/20/16 10:09 Dose: 500 mg Aspirin (Aspirin Chewable) 81 mg PO DAILY [facility] Last Admin: 11/20/16 10:00 Dose: 81 mg Atorvastatin Calcium (Lipitor) 40 mg PO DIN [facility] Last Admin: 11/19/16 18:25 Dose: 40 mg Carvedilol (Coreg) 3.125 mg PO BID [facility] Last Admin: 11/20/16 10:01 Dose: 3.125 mg Cefpodoxime Proxetil (Vantin) 100 mg PO Q12 [facility] PRN Reason: Protocol Stop: 11/23/16 22:01 Last Admin: 11/20/16 10:09 Dose: 100 mg Collagenase (Santyl) 0 gm TOP DAILY [facility] Last Admin: 11/20/16 10:33 Dose: 1 applic Ergocalciferol (Drisdol 50,000 Intl Units Cap) 1 cap PO Q7D [facility] Last Admin: 11/19/16 13:50 Dose: 1 cap Ferrous Sulfate (Feosol) 324 mg PO BID [facility] Last Admin: 11/20/16 10:02 Dose: 324 mg Furosemide (Lasix) 80 mg IVP Q12 [facility] Last Admin: 11/20/16 10:07 Dose: 80 mg Hydralazine HCl (Apresoline) 50 mg PO QID [facility] Last Admin: 11/19/16 22:00 Dose: Not Given Insulin Human Regular (Humulin R Low) 0 units SC ACHS [facility] PRN Reason: Protocol Last Admin: 11/20/16 08:05 Dose: Not Given Lactobacillus Acidophilus (Bacid Acidophilus) 1 cap PO BID [facility] Last Admin: 11/20/16 10:01 Dose: 1 cap Metolazone (Zaroxolyn) 5 mg PO BID [facility] Last Admin: 11/20/16 10:10 Dose: 5 mg Multi-Ingredient Cream (Hydrocerin Cream) 0 ea TOP DAILY [facility] Last Admin: 11/20/16 10:06 Dose: 1 applic Pantoprazole Sodium (Protonix Ec Tab) 40 mg PO 0600 [facility] Last Admin: 11/20/16 10:08 Dose: 40 mg Spironolactone (Aldactone) 25 mg PO BID [facility] Last Admin: 11/20/16 09:58 Dose: 25 mg Tamsulosin HCl (Flomax) 0.4 mg PO BID [facility] Last Admin: 11/20/16 10:03 Dose: 0.4 mg Zinc Sulfate (Zinc Sulfate 220 Mg Cap) 220 mg PO DAILY [facility] Last Admin: 11/20/16 10:11 Dose: 220 mg - Labs Labs: 11/20/16 06:50 11/20/16 06:50 PT 14.7 Seconds (9.9-11.8) H 11/18/16 09:50 INR 1.36 (0.93-1.08) H 11/18/16 09:50 APTT 31.6 Seconds (23.7-30.8) H 11/18/16 09:50 - Constitutional Appears: Well, Non-toxic, No Acute Distress - Extremities Exam Additional comments: Dressing to RLE appears clean/dry/intact LLE focused physical exam: DERM: Left - Open ulceration to dorsal aspect of Left 1st metatarsal measuring 7cm x 2cm x 0.2cm with mixed granular-fibrotic base. No drainage is noted. No purulent discharge noted. No mal-odor is noted. No erythema around the wound is noted. No maceration noted to the wound edges. No sign of acute infections is noted. No PTB VASC: Non-palpable DP and PT noted ENTREPRENEUR less than 3 seconds to all digits ORTHO: No pain on palpation noted to LLE at today's visit. Decreased ROM to joints distal to ankle NEURO: Gross sensation diminished to distal aspect of bilateral feet - Neurological Exam Neurological Exam: Alert, Awake, Oriented x3 - Psychiatric Exam Psychiatric exam: Normal Affect, Normal Mood Assessment and Plan - Assessment and Plan (Free Text) Assessment: 65 yo male patient presents with open ulcerations to bilateral lower extremities Perez Stage 2 Plan: Patient seen and evaluated with attending, Dr. Amos Chart, vitals, labs reviewed = afebrile, WBC WML @ 9.0 Santyl applied to Left foot ulceration and dressed with 4x4s, abd, and kerlix Continue with application of Santyl to bilateral lower extremity wounds and dress with Optifoam; daily dressing changes to bilateral lower extremity Continue use of offloading heel pads. Per medicine, continue PO Vantin to complete a 7 day course (ie. 4 more days) since the Serratia in the wound is sensitive to Rocephin Podiatry will continue to follow patient while in house <Kurtis Amos - Last Filed: 11/21/16 08:03> Objective - Vital Signs/Intake and Output Vital Signs (last 24 hours): Temp Pulse Resp BP Pulse Ox 98.4 F 73 20 117/67 100 11/20/16 08:25 11/20/16 13:21 11/20/16 08:25 11/20/16 13:21 11/20/16 08:25 - Labs Labs: 11/20/16 06:50 11/20/16 06:50 PT 14.7 Seconds (9.9-11.8) H 11/18/16 09:50 INR 1.36 (0.93-1.08) H 11/18/16 09:50 APTT 31.6 Seconds (23.7-30.8) H 11/18/16 09:50 Attending/Attestation - Attestation I have personally seen and examined this patient.: Yes I have fully participated in the care of the patient.: Yes I have reviewed all pertinent clinical information, including history, physical exam and plan: Yes
--- NOTE | 2016-11-20 12:04 | PN ---
This is [facility]'s hospital visit on the medical floor. For Dr. Bermudez. SUBJECTIVE: The patient is a 65-year-old male seen sitting up in bed with evaluation by Dr. Bermudez's recommended for the patient's anemic indices, which is now improving with IV iron being given with good effect, status post a transfusion of 2 units of packed cells earlier in his hospital stay on the 11/12 and 11/13. He is at present resting comfortably, in no acute distress with ferrous sulfate also being given 3 times a day, which we will cut back on as it can be significantly constipating. The patient also received Aranesp by Dr. Carreon, his renal crm consultant. He is otherwise in no acute distress. PHYSICAL EXAMINATION: VITAL SIGNS: Temperature 97.5, pulse 76, respirations 18, blood pressure 157/80, pulse ox 97%. HEENT: Unremarkable. NECK: Supple. HEART: Tachy rate, regular rhythm. LUNGS: Minimal decreased breath sounds. ABDOMEN: Soft, nontender, status post ultrasound-guided paracentesis of 5800 mL earlier today by Dr. Kamari Mohan. EXTREMITIES: Showing no edema. SKIN: Warm, dry, and clear with dressings dry and intact for his lower extremities with history of edema, however, the dressings obscure the evaluation at this time. NEUROLOGIC: Awake, alert, and oriented x3. LABORATORY DATA: The patient's labs were done. White blood cell count of 9.8, hemoglobin 10.2, hematocrit 31.8, platelet count of 185,000 with a chem metabolic panel showing a BUN of 129, creatinine of 3.2, non-fasting glucose 167, alkaline phosphatase of 196, albumin 2.9, otherwise normal chem metabolic panel. ASSESSMENT: Chronic kidney disease, diabetes mellitus, heel ulcers, electrolyte imbalance, abdominal ascites, status post paracentesis, anasarca, hypertension, history of sciatica, nonsteroidal anti-inflammatory drug use. PLAN: Continue his present medical regimen as per consultants recommendations with the paracentesis fluid to be sent. We will monitor clinically and with labs. Prognosis for this patient is guarded. Konstantin Ramires MD [facility] # [id number]
--- NOTE | 2016-11-20 12:34 | CP.PCM.PN ---
Subjective - Date & Time of Evaluation Date of Evaluation: 11/20/16 Time of Evaluation: 12:32 - Subjective Subjective: Follow up Nephrology Consultation: Assessment: Stable Acute Kidney Injury (N17.9) possibly due to Chronic NSAIDs use. also contribution by his severe CHF (cardio-renal) Fluid overload, Anasarca with CHF exacerbation Diabetic chronic Kidney Disease (E11.22) Hypertensive Chronic Kidney Disease (I12.9) Chronic Kidney Disease (N18.4) Stage 4 with 200 proteinuria (R80.9) possibly due to his long standing hx of HTN, atherosclerotic vasc disease Anemia (D64.9), HTN (I12.9), DM, CHF, Morbid obesity, YASMIN on CPAP, back pain, Hypernatremia, heel ulcers, ventral hernia, ascites Vit D def and secondary hyperparathyroidism Plan No acute need for renal replacement therapy at this time. Patient aware that due to his advanced renal insuff, CHF and fluid overload, dialysis to be anticipated in near future. Pt advised to abstain from NSAIDs completely. continue with diuresis with lasix 80 mg bid and oral metolazone 5 mg bid while in-house. Hypertension control with meds as ordered. Patient on RAAS lei with aldactone Agree with oral iron supplements. s/p Aransep 60 mcg (11/12/16 and 11/20/16). PRBC as needed. continue with weekly Vit D 50,000 unit x 8 doses. also started on flomax 0.4 mg bid. pt seen by Monitor Input/Output, daily weights and renal function with basic metabolic panel wound care. he is s/p ascitic fluid drainage by IR. At d/c switch to PO lasix 80 mg bid and metolazone 2.5 mg once a day. oral fluid restriction to 1000 mL/day. Dose meds/antibiotics for reduced GFR. Avoid fleets enema/magnesium based laxatives. Avoid nephrotoxins/NSAIDs/ iodinated contrast (unless needed emergently) Glycemic control Further work up/management as per primary team Thanks for allowing me to participate in care of your patient. Please call if any Qs. pt planned for d/c PAOLO soon. stable from renal perspective. d/w team. pt to follow up with me in office [address] Real Carreon Office: [phone] Chief Complaint; None today, going to rehab today. 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 He has been taking NSAIDs as Advil (3 tab) and alleve (2 tab) per day on most days for last few weeks to control his pain. Subjective: Denies chest pain, palpitation, shortness of breath, says legs and arms swelling feels much better had mortensen placed by . s/p ascitic tap 11/19/16 (5800 mL). ROS: Constitutional Symptoms: Denies fever. No chills. Eyes: denies change in vision, denies watery eyes, denies double vision Ears/Nose/Mouth/Throat: Denies Abnormal Taste. No Bad breath no Bad Taste. Cardiovascular: No chest pain. There is no shortness of breath at present. No palpitations. Pulmonary: No shortness of breath no cough now. Gastrointestinal: denies abdominal pain No nausea. No vomiting. Denies change in bowel habits. Denies Bleeding Genitourinary: has mortensen now Neurological: Denies headaches. No dizziness. Denies loss of balance. c/o overall weakness, denies tingling/numbness Dermatological: No Rash or Bruising but had heel/feet ulcers. Psychiatric: Denies Anxiety. No depression. Denies hallucinations. Rheumatological: c/o chronic low back pain. Denies Joint swelling Endocrine: denies Heat/Cold Intolerance. All other negative Physical Examination: General Appearance: Comfortable, in no acute respiratory distress, co-operative . morbidly Obese Vitals reviewed and noted as below Head; Atraumatic, normocephalic ENT: no ulcers no thrush. Tongue is midline. Oropharynx: no rash or ulcers. EYES: Pupils are equal, round and reactive to light accommodation. Eye muscles and extraocular movement intact. Sclera is anicteric. Neck; supple no lymphadenopathy, no thyromegaly or bruit Lungs: Normal respiratory rate/effort. Breath sounds bilateral equal and clear except somewhat decreased at bases Heart: Normal rate. s1s2 normal. No rub or gallop. Extremities: 2-3+ edema with chronic venous stasis changes in legs. No varicose veins. both heels dressed. has thigh edema/Anasarca. hands/arms swelling much better Neurological: Patient is alert, awake and oriented to person, place and time. No focal deficit. Strength bilateral appropriate and equal Skin: Warm and dry. Normal turgor. No rash. Palpitation: Normal elasticity for age Abdomen: Abdomen is softer and less distended. has midline ventral hernia. has abdomen wall edema. Bowel sounds +. There is no abdominal tenderness, no guarding/rigidity. Unable to examine/appreciate organomegaly due to obesity/ edema and distension of abdomen Psych: normal insight and normal affect/mood MSK: no joint tenderness or swelling. Digits and nails normal, no deformity : kidney or bladder not palpable but exam very limited. has significant scrotal/penile edema. has mortensen Labs/imaging/EKG reviewed. Past medical history, past surgical history, family history, social history, allergy reviewed and noted as below Family hx: no hx of CKD. Rest non-contributory Work up: UA: no blood or prot Phos 3.5 Mg 2.5 Albumin 3 TSAT 10% Ferritin 101 CXr: pulm congestion Echo: EF 22% [place]/lambda ratio Normal Renal and bladder sono: PVR 438 ml but also had ascites hence PVR can be false + elevated on sonogram. Vit D 13 PTH 120 Objective - Vital Signs/Intake and Output Vital Signs (last 24 hours): Temp Pulse Resp BP Pulse Ox 98.4 F 70 20 133/80 100 11/20/16 08:25 11/20/16 10:40 11/20/16 08:25 11/20/16 10:40 11/20/16 08:25 Intake and Output: 11/20/16 11/20/16 06:59 18:59 Intake Total 600 Output Total 1500 Balance -900 - Medications Medications: Current Medications Acetaminophen (Tylenol 325mg Tab) 650 mg PO Q4H PRN PRN Reason: Pain, moderate (4-7) Last Admin: 11/15/16 22:46 Dose: 650 mg Ascorbic Acid (Vitamin C 500 Mg Tab) 500 mg PO DAILY [facility] Last Admin: 11/20/16 10:09 Dose: 500 mg Aspirin (Aspirin Chewable) 81 mg PO DAILY [facility] Last Admin: 11/20/16 10:00 Dose: 81 mg Atorvastatin Calcium (Lipitor) 40 mg PO DIN [facility] Last Admin: 11/19/16 18:25 Dose: 40 mg Carvedilol (Coreg) 3.125 mg PO BID [facility] Last Admin: 11/20/16 10:01 Dose: 3.125 mg Cefpodoxime Proxetil (Vantin) 100 mg PO Q12 [facility] PRN Reason: Protocol Stop: 11/23/16 22:01 Last Admin: 11/20/16 10:09 Dose: 100 mg Collagenase (Santyl) 0 gm TOP DAILY [facility] Last Admin: 11/20/16 10:33 Dose: 1 applic Ergocalciferol (Drisdol 50,000 Intl Units Cap) 1 cap PO Q7D [facility] Last Admin: 11/19/16 13:50 Dose: 1 cap Ferrous Sulfate (Feosol) 324 mg PO BID [facility] Last Admin: 11/20/16 10:02 Dose: 324 mg Furosemide (Lasix) 80 mg IVP Q12 [facility] Last Admin: 11/20/16 10:07 Dose: 80 mg Hydralazine HCl (Apresoline) 50 mg PO QID [facility] Last Admin: 11/20/16 10:40 Dose: 50 mg Insulin Human Regular (Humulin R Low) 0 units SC ACHS [facility] PRN Reason: Protocol Last Admin: 11/20/16 11:41 Dose: 1 units Lactobacillus Acidophilus (Bacid Acidophilus) 1 cap PO BID [facility] Last Admin: 11/20/16 10:01 Dose: 1 cap Metolazone (Zaroxolyn) 5 mg PO BID [facility] Last Admin: 11/20/16 10:10 Dose: 5 mg Multi-Ingredient Cream (Hydrocerin Cream) 0 ea TOP DAILY [facility] Last Admin: 11/20/16 10:06 Dose: 1 applic Pantoprazole Sodium (Protonix Ec Tab) 40 mg PO 0600 [facility] Last Admin: 11/20/16 10:08 Dose: 40 mg Spironolactone (Aldactone) 25 mg PO BID [facility] Last Admin: 11/20/16 09:58 Dose: 25 mg Tamsulosin HCl (Flomax) 0.4 mg PO BID [facility] Last Admin: 11/20/16 10:03 Dose: 0.4 mg Zinc Sulfate (Zinc Sulfate 220 Mg Cap) 220 mg PO DAILY [facility] Last Admin: 11/20/16 10:11 Dose: 220 mg - Labs Labs: 11/20/16 06:50 11/20/16 06:50 PT 14.7 Seconds (9.9-11.8) H 11/18/16 09:50 INR 1.36 (0.93-1.08) H 11/18/16 09:50 APTT 31.6 Seconds (23.7-30.8) H 11/18/16 09:50
[2016-11-20] MEDS ORDERED: Albumin Human 25% (25 gm/100 ml) IV ONE (12:54)
--- NOTE | 2016-11-20 13:12 | PN ---
DATE: 11/20/2016 SUBJECTIVE: The patient is in bed, in no acute distress, and nontoxic. PHYSICAL EXAMINATION VITAL SIGNS: Temperature is 98 and blood pressure is 130/70. HEENT: Unremarkable. NECK: Supple. HEART: Normal S1 and S2. LUNGS: Decreased breath sounds. ABDOMEN: Soft and nontender. LABORATORY DATA: Examination reveals a white count of 9000, hemoglobin of 9, and platelets of 150. Chemistries reveals a BUN of 121, and creatinine of 3.1. Urinalysis is noted. Toe culture is positive for Serratia. MEDICATIONS: Review of the orders reveals the patient to be on cefpodoxime. ASSESSMENT AND PLAN: He is a 65-year-old male with probable infective right foot ulcer with Serratia, congestive heart failure, chronic renal failure, diabetes, morbid obesity, body mass index of 40, obstructive sleep apnea on continuous positive airway pressure therapy, sciatica, hypertension, status post left foot debridement in 2015 on day number 8, on p.o. Vantin currently, we would recommend 4 more days. Charlie Taylor MD
[2016-11-20 13:27] VITALS: BP 117/67; PULSE 73
--- NOTE | 2016-11-20 13:44 | PN ---
DATE: 11/20/2016 CARDIOLOGY FOLLOWUP SUBJECTIVE: The patient is without dyspnea. OBJECTIVE: VITAL SIGNS: Blood pressure 133/70, heart rates in the 80s. NECK: Negative JVD. LUNGS: Decreased breath sounds. HEART: S1, S2. EXTREMITIES: Without change. LABORATORY DATA: Hemoglobin is 9.4. BUN and creatinine 121/3.1. IMPRESSION: 1. Dilated cardiomyopathy. 2. Renal insufficiency. 3. Chronic pedal edema. 4. Foot ulcers. 5. Obesity. Given these findings, the patient's CHF is reasonably controlled with Lasix. It is likely that the patient will need dialysis soon. Kamari Watt MD
--- NOTE | 2016-11-20 20:51 | PN ---
DATE: 11/20/2016 SUBJECTIVE: The patient is a 65-year-old male sitting up in a chair having his breakfast followed by Dr. Carreon, nephrology for renal compromise, acute kidney injury possibly related to NSAID use along with CHF. He was paracentezed yesterday by Dr. Kamari Mohan for 5800 mL of fluid, which was sent off. The patient is in no acute distress at this time with plan to transfer to rehab, however, after current schedule with Dr. Bermudez and Dr. Carreon earlier today, it is recommended for the patient to have albumin IV with Dr. Carreon to call orders regarding this as significant amount of acetic fluid was taken off yesterday. The patient's anemic indices has been followed with the hemoglobin today of 9.4. He is otherwise without complaint, being treated for podiatric problems as per Dr. Contreras and [place]. PHYSICAL EXAMINATION: VITAL SIGNS: Temperature 98.4, pulse 79, respirations 20, blood pressure 133/70, pulse ox is 100%. HEENT: Unremarkable. NECK: Supple. HEART: Regular rate. LUNGS: Clear. ABDOMEN: Obese, soft with dressing dry and intact status post paracentesis. EXTREMITIES: Indurated with +1 edema with healed dressings. SKIN: Otherwise, warm, dry, and clear. NEUROLOGIC: Awake, alert, and oriented. LABORATORY DATA: The patient's lab were done. White blood cell count of 9.0, hemoglobin 9.4, hematocrit 29.7, platelet count of 150,000. Chem metabolic panel showing a BUN 121, creatinine 3.1, nonfasting glucose 163, alkaline phosphatase of 184 with an albumin of 2.7, it was 2.9 yesterday. ASSESSMENT: Symptomatic anemia status pot transfusion, chronic kidney disease, acute kidney injury, ascites status post paracentesis, electrolyte imbalance, diabetic mellitus, heel ulcers, and hypertension. PLAN: The plan for this patient is to continue present medical regimen with albumin to be given as per Dr. Carreon, his machine cage maker with the patient to be transferred as per his primary doctor with follow up with Dr. Bermudez in the office once he is discharged in approximately two weeks' time or earlier. Konstantin Ramires MD
== END 2016-11-20 16:32 | DRG 291 ==
LOC: ED 10:59 → ERH 14:15 → 2RSO 17:52 → 5RNO 11-13 15:42
PROVIDERS: ADMIT Internal Medicine; ATTEND Internal Medicine
PROC: BW40ZZZ Ultrasonography of Abdomen (ICD-10-PCS; 2016-11-19)
PROC: 0W9G3ZZ Drainage of Peritoneal Cavity, Percutaneous Approach (ICD-10-PCS; principal; 2016-11-19 11:00)
DX: I13.0 Hypertensive heart and chronic kidney disease with heart failure and stage 1 through stage 4 chronic kidney disease, or unspecified chronic kidney disease (principal); I50.43 Acute on chronic combined systolic (congestive) and diastolic (congestive) heart failure; I47.2 Ventricular tachycardia; E87.0 Hyperosmolality and hypernatremia; R18.8 Other ascites; N17.9 Acute kidney failure, unspecified; I42.0 Dilated cardiomyopathy; N18.4 Chronic kidney disease, stage 4 (severe); E11.22 Type 2 diabetes mellitus with diabetic chronic kidney disease; N25.81 Secondary hyperparathyroidism of renal origin; Z68.41 Body mass index [BMI] 40.0-44.9, adult; L02.611 Cutaneous abscess of right foot; L02.612 Cutaneous abscess of left foot; L97.409 Non-pressure chronic ulcer of unspecified heel and midfoot with unspecified severity; N48.89 Other specified disorders of penis; E11.621 Type 2 diabetes mellitus with foot ulcer; D63.8 Anemia in other chronic diseases classified elsewhere; E11.319 Type 2 diabetes mellitus with unspecified diabetic retinopathy without macular edema; E55.9 Vitamin D deficiency, unspecified; E66.01 Morbid (severe) obesity due to excess calories; G47.33 Obstructive sleep apnea (adult) (pediatric); E78.00 Pure hypercholesterolemia, unspecified; E88.09 Other disorders of plasma-protein metabolism, not elsewhere classified; I73.9 Peripheral vascular disease, unspecified; K43.9 Ventral hernia without obstruction or gangrene; L97.519 Non-pressure chronic ulcer of other part of right foot with unspecified severity; L97.529 Non-pressure chronic ulcer of other part of left foot with unspecified severity; M54.40 Lumbago with sciatica, unspecified side; N50.89 Other specified disorders of the male genital organs; R33.9 Retention of urine, unspecified; Z83.3 Family history of diabetes mellitus; Z91.19 Patient's noncompliance with other medical treatment and regimen; B35.1 Tinea unguium

== ENCOUNTER 2018-01-17 12:17 | Emergency (ER) | payer OTHER ==
[2018-01-17 12:17] VITALS: BMI 33.9
[2018-01-17 13:28] VITALS: RESP 18
--- NOTE | 2018-01-17 13:29 | ED PDOC ---
Arrival/HPI - General Chief Complaint: Medical Clearance Time Seen by Provider: 01/17/18 13:26 Historian: Patient EM Caveat: Unstable Vital Signs - History of Present Illness Narrative History of Present Illness (Text): 01/17/18 13:33 A 67 year old male, whose past medical history includes arthritis, dialysis (M, W, Fri last one was 3 days ago), defibrillator, HTN, Diabetes, sent by Dr. Young to the emergency department for medical clearance. Patient reports he got a call from to be seen in the Emergency room due to low hemoglobin and to be medically cleared for transfusions and dialysis. Dr. Young requests for orders to be put in for 2 units of PRBC. Patient denies any symptomatic/physical complaints. PMD: Dr. Alvarado Past Medical History - Provider Review Nursing Documentation Reviewed: Yes - Cardiac Hx Congestive Heart Failure: Yes (B/L LL +3 edema) Hx Hypertension: Yes - Renal Hx Renal Failure: Yes (as per pt "his numbers are off") - Endocrine/Metabolic Hx Diabetes Mellitus Type 2: Yes - Hematological/Oncological Hx Blood Transfusions: Yes - Musculoskeletal/Rheumatological Hx Falls: No - Psychiatric Hx Substance Use: No - Surgical History Other/Comment: L great toe debridement - Anesthesia Hx Anesthesia: Yes Hx Anesthesia Reactions: No Hx Malignant Hyperthermia: No Family/Social History - Physician Review Nursing Documentation Reviewed: Yes Family/Social History: No Known Family HX Smoking Status: Never Smoked Hx Alcohol Use: No Hx Substance Use: No Allergies/Home Meds Allergies/Adverse Reactions: Allergies No Known Allergies Allergy (Verified 11/08/16 11:14) Review of Systems - Physician Review All systems were reviewed & negative as marked: Yes - Review of Systems Constitutional: absent: Fevers, Night Sweats Respiratory: absent: SOB, Cough Cardiovascular: absent: Chest Pain, Palpitations Gastrointestinal: absent: Abdominal Pain, Diarrhea, Nausea, Vomiting Neurological: absent: Headache, Dizziness Physical Exam Vital Signs Reviewed: Yes Vital Signs Temp Pulse Resp BP Pulse Ox 01/17/18 13:28 98.1 F 65 18 104/61 95 Temperature: Afebrile Blood Pressure: Normal Pulse: Regular Respiratory Rate: Normal Appearance: Positive for: Well-Appearing, Non-Toxic, Comfortable Pain Distress: None Mental Status: Positive for: Alert and Oriented X 3 - Systems Exam Head: Present: Atraumatic, Normocephalic Pupils: Present: PERRL Extroacular Muscles: Present: EOMI Conjunctiva: Present: Normal Mouth: Present: Moist Mucous Membranes Neck: Present: Normal Range of Motion Respiratory/Chest: Present: Clear to Auscultation, Good Air Exchange. No: Respiratory Distress, Accessory Muscle Use Cardiovascular: Present: Regular Rate and Rhythm, Normal S1, S2. No: Murmurs Abdomen: No: Tenderness, Distention, Peritoneal Signs Back: Present: Normal Inspection Upper Extremity: Present: Other (left upper fistula, contracted hands b/l due to arthritis.) Lower Extremity: Present: Other (b/l lower extremity skin changes due to veinastasis, left dorsal aspect of foot to 1st digit old pen wound.) Neurological: Present: GCS=15, CN II-XII Intact, Speech Normal Skin: Present: Warm, Dry, Normal Color. No: Rashes Psychiatric: Present: Alert, Oriented x 3, Normal Insight, Normal Concentration Medical Decision Making ED Course and Treatment: 01/17/18 13:51 Impression: 67 year old male for clearance. Plan: -- Labs -- Reassess and disposition Progress Notes: 01/17/18 14:49 Dr. Young is at bedside, patient consents for blood transfusion and Dr. Young consents patient for dialysis. Hemoglobin is 5.9. 01/17/18 19:54 Dr. Young called, stating patient had gone for dialysis. Stated she wanted to have patient admitted to find out why he is anemic, however patient does not wish to stay because he has an eye doctor appointment tomorrow and does not want to miss it. Patient signing out against medical advice. Patient will have his next dialysis on Wednesday. On interview pt with capacity. Discussed with patient the risks, benefits and alternatives of leaving without completing the evaluation in the emergency department, including and permanent neurologic dysfunction. Patient understands the decision being made, alternative options, the risks and benefits of those options. Pt demonstrated understanding of this information, the ability to apply it to themself and ability to communicate the decision and its conseq uences. Pt still wishes to leave AMA. Discussed at length with pt the reasons would like for pt to stay for further tx and concerns; however, pt refuses to stay for further tx. Pt understands risk of and/or disability by leaving and still wishes to sign out against medical advice. Pts preference is to leave the hospital and elects to follow up in the outpatient setting rather than stay and have medical workup. Will discharge against medical advice and pt encouraged to return to ED immediately should they change their mind regarding care or if any new concerning symptoms arise. Re-evaluation Time: 17:54 - Scribe Statement The provider has reviewed the documentation as recorded by the Scribe Michael Trent Provider Scribe Provider Scribe Attestation: All medical record entries made by the Scribe were at my direction and personally dictated by me. I have reviewed the chart and agree that the record accurately reflects my personal performance of the history, physical exam, medical decision making, and the department course for this patient. I have also personally directed, reviewed, and agree with the discharge instructions and disposition. Disposition/Present on Arrival - Present on Arrival Any Indicators Present on Arrival: No History of DVT/PE: No History of Uncontrolled Diabetes: No Urinary Catheter: No History of Decub. Ulcer: No History Surgical Site Infection Following: None - Disposition Have Diagnosis and Disposition been Completed?: Yes Diagnosis: Anemia, Left against medical advice, End stage chronic kidney disease Disposition: AGAINST MEDICAL ADVICE Disposition Time: 17:54 Condition: STABLE Discharge Instructions (ExitCare): End Stage Kidney Disease, Normocytic Normochromic Anemia (DC), Leaving Against Medical Advice Referrals: Christiano WISDOM,Keila Young MD [Primary Care Provider] - Follow up with primary Forms: [email or web address] (Citizen [place])
[2018-01-17 14:32] LABS: BASO # 0.01 K/mm3 (0.0-2.0); BASO % 0.2 % (0.0-3.0); EOS # 0.2 (0.0-0.7); EOS % 4.1 % (1.5-5.0); GRAN # 3.71 (1.4-6.5); GRAN % 76.5 % (50.0-68.0); LYMPH # 0.7 (1.2-3.4); LYMPH % 13.6 % (22.0-35.0); MEAN CELL VOLUME 93.3 fl (80.0-105.0); MEAN CORPUSCULAR HEMOGLOBIN 30.3 pg (25.0-35.0); MEAN CORPUSCULAR HGB CONC 32.4 g/dl (31.0-37.0); MONO # 0.3 (0.1-0.6); MONO % 5.6 % (1.0-6.0); RBC 1.95 10^6/uL (3.5-6.1); RED CELL DISTRIBUTION WIDTH 18.9 % (11.5-14.5); WHITE BLOOD COUNT 4.9 10^3/uL (4.5-11.0)
[2018-01-17 14:41] LABS: INR 1.43; PARTIAL THROMBOPLASTIN TIME 31.1 Seconds (25.1-36.5); PROTHROMBIN TIME 16.4 SECONDS (9.4-12.5)
[2018-01-17 14:49] LABS: ALB/GLOB RATIO 0.9 (1.1-1.8); ALBUMIN 3.6 g/dL (3.0-4.8); CALCIUM 7.8 mg/dL (8.4-10.5)
[2018-01-17 14:55] LABS: HEMOGLOBIN 5.9 g/dL (14.0-18.0)
--- NOTE | 2018-01-17 18:36 | CON ---
DATE OF CONSULTATION: 01/17/2018 REASON FOR CONSULTATION: Severe anemia, progressive decrease in hemoglobin. HISTORY OF PRESENTING ILLNESS: This is a 67-year-old male, known to me from outpatient dialysis. The patient has progressive anemia. His hemoglobin is dropping. The patient has been advised to get a colonoscopy and a GI evaluation multiple times as outpatient. He has not been able to get there yet. This morning, his hemoglobin was found to be 6.2. The patient was advised to come to the emergency room. Currently, he denies any shortness of breath. He denies any dyspnea on exertion. He denies any nausea or vomiting. He denies any abdominal pain. He denies any melena. He denies any chest tightness. PAST MEDICAL AND SURGICAL HISTORY: NIDDM, hypertension, hyperlipidemia, AICD placement in 01/2017, left AV graft, severe deforming osteoarthritis, no history of any CVA. FAMILY HISTORY: Hypertension. SOCIAL HISTORY: No smoking, no alcohol use, no IV drug abuse. MEDICATIONS AT HOME: Lisinopril 5 mg daily, Flomax 0.4 daily, Renvela 1600 three times a day, Feosol, hydralazine 10 t.i.d. ALLERGIES: NO KNOWN DRUG ALLERGIES. REVIEW OF SYSTEMS: All systems are reviewed, pertinent positives as mentioned in the history of presenting illness, rest unremarkable. PHYSICAL EXAMINATION: GENERAL: Elderly male, lying in bed in the emergency room in no acute distress. VITAL SIGNS: Blood pressure 104/61, heart rate 65, respiratory rate 18, temperature 98. HEENT: Normocephalic, atraumatic, positive pallor. NECK: Supple, no JVD. LUNGS: Bilateral equal entry, bilateral equal expansion. CARDIAC: S1 and S2, regular rate and rhythm, no murmur, no rub. ABDOMEN: Soft, nondistended, nontender, bowel sounds present. EXTREMITIES: Dressing of the left foot, severely deformed small joints of both hands. INTAKE AND OUTPUT: Not charted. LABORATORY DATA: WBC 4.9, hemoglobin 5.9, hematocrit 18, platelets 158. Sodium 142, potassium 5.5, chloride 102, CO2 of 23, BUN 115, creatinine 9.8, calcium 7.8, AST 34, ALT 27, albumin 3.6. ASSESSMENT: 1. Severe anemia, [id number], progressive decline in hemoglobin. 2. Needs GI evaluation, rule out GI blood loss. 3. [id number] diabetes mellitus. 4. Hypertension. 5. End-stage renal disease. 6. Cardiomyopathy/automatic implantable cardioverter-defibrillator. PLAN: 1. Dialysis today, transfuse 2 units of blood on dialysis. 2. GI evaluation. 3. Needs colonoscopy, currently scheduled for outpatient on Wednesday. Grecia Young MD
[2018-01-17 20:36] VITALS: BP 115/72; PULSE 65; TEMP 98.2; O2SAT 99
== END 2018-01-17 20:31 | disposition left against medical advice (07) ==
LOC: ED 12:17
DX: I12.0 Hypertensive chronic kidney disease with stage 5 chronic kidney disease or end stage renal disease (principal); E11.22 Type 2 diabetes mellitus with diabetic chronic kidney disease; N18.6 End stage renal disease; D63.1 Anemia in chronic kidney disease; Z99.2 Dependence on renal dialysis
CPT/HCPCS: 36430; 80053; 85025; 85610; 85730; 86850; 86900; 86920; 99285; P9016

== ENCOUNTER 2018-02-04 11:04 | Inpatient (IN) | payer OTHER, MEDICARE ==
--- NOTE | 2018-02-04 11:41 | ED PDOC ---
Arrival/HPI - General Time Seen by Provider: 02/04/18 11:05 Historian: Patient - History of Present Illness Narrative History of Present Illness (Text): 02/04/18 11:33 A 67 year old male, whose past medical history includes arthritis, dialysis (M,W,F), defibrillator, HTN, DM, presents to the emergency department after being advised by Dr. Young to come in for further evaluation of low hemoglobin levels. The patient notes that he was on his way to the dialysis center when he received a call instructing him to come to the emergency department . He notes that his blood count was last checked 5 days ago. He also notes that he last received a blood transfusion 2 weeks ago and dialysis 2 days ago. The patient reports that he does not feel weak or fatigued. He denies dark stools. The patient denies fevers, chills, headache, dizziness, cough, sore throat, chest pain, shortness of breath, dyspena on exertion, abdominal pain, nausea, vomiting, diarrhea, neck/ back pain, urinary/ bowel symptoms, trauma/ injury, or any other complaints. PMD: Dr. Gill Alvarado Plant Control Aide: Dr. Young Time/Duration: Other (Today) Symptom Onset: Sudden Symptom Course: Unchanged Activities at Onset: Rest, Light Context: Home Past Medical History - Provider Review Nursing Documentation Reviewed: Yes - Cardiac Hx Congestive Heart Failure: Yes (B/L LL +3 edema) Hx Hypertension: Yes - Renal Hx Renal Failure: Yes (as per pt "his numbers are off") - Endocrine/Metabolic Hx Diabetes Mellitus Type 2: Yes - Hematological/Oncological Hx Blood Transfusions: Yes - Musculoskeletal/Rheumatological Hx Falls: No - Psychiatric Hx Substance Use: No - Surgical History Other/Comment: L great toe debridement - Anesthesia Hx Anesthesia: Yes Hx Anesthesia Reactions: No Hx Malignant Hyperthermia: No Family/Social History - Physician Review Nursing Documentation Reviewed: Yes Family/Social History: No Known Family HX Smoking Status: Never Smoked Hx Alcohol Use: No Hx Substance Use: No Allergies/Home Meds Allergies/Adverse Reactions: Allergies No Known Allergies Allergy (Verified 11/08/16 11:14) Review of Systems - Physician Review All systems were reviewed & negative as marked: Yes - Review of Systems Constitutional: absent: Fevers ENT: absent: Sore Throat Respiratory: absent: SOB, Cough Cardiovascular: absent: Chest Pain, DASILVA Gastrointestinal: absent: Abdominal Pain, Stool Changes, Diarrhea, Nausea, Vomiting Genitourinary Male: absent: Urinary Output Changes Musculoskeletal: absent: Back Pain, Neck Pain Neurological: absent: Headache, Dizziness Hemo/Lymphatic: Other (Low hemoglobin levels) Physical Exam Appearance: Positive for: Well-Appearing, Non-Toxic, Comfortable Pain Distress: None Mental Status: Positive for: Alert and Oriented X 3 - Systems Exam Head: Present: Atraumatic, Normocephalic Pupils: Present: PERRL Extroacular Muscles: Present: EOMI Conjunctiva: Present: Normal Mouth: Present: Moist Mucous Membranes Neck: Present: Normal Range of Motion Respiratory/Chest: Present: Good Air Exchange, Rales (Minimal rales at the base s). No: Respiratory Distress, Accessory Muscle Use Cardiovascular: Present: Regular Rate and Rhythm, Normal S1, S2. No: Murmurs Abdomen: No: Tenderness, Distention, Peritoneal Signs Back: Present: Normal Inspection Upper Extremity: Present: Other (Fistula- left arm). No: Cyanosis, Edema Lower Extremity: Present: Normal Inspection. No: Edema Neurological: Present: GCS=15, CN II-XII Intact, Speech Normal Skin: Present: Warm, Dry, Normal Color. No: Rashes Psychiatric: Present: Alert, Oriented x 3, Normal Insight, Normal Concentration Medical Decision Making ED Course and Treatment: 02/04/18 11:43 Impression: A 67 year old male advised by Dr. Young to come into the emergency department for further evaluation of low hemoglobin levels. Plan: -- Labs -- Reassess and disposition Prior Visits: Notes and results from previous visits were reviewed. Progress Notes: 02/04/18 12:39: Case discussed in detail with Dr. Fritz who accepts patient for admission to her service. Dr. Young was paged, awaiting call back. - Lab Interpretations I have reviewed the lab results: Yes - Scribe Statement The provider has reviewed the documentation as recorded by the Scribe Maci Chavez Provider Scribe Attestation: All medical record entries made by the Scribe were at my direction and personally dictated by me. I have reviewed the chart and agree that the record accurately reflects my personal performance of the history, physical exam, medical decision making, and the department course for this patient. I have also personally directed, reviewed, and agree with the discharge instructions and disposition. Disposition/Present on Arrival - Present on Arrival Any Indicators Present on Arrival: No History of DVT/PE: No History of Uncontrolled Diabetes: No Urinary Catheter: No History Surgical Site Infection Following: None - Disposition Have Diagnosis and Disposition been Completed?: Yes Diagnosis: End stage chronic kidney disease, Anemia Disposition: HOSPITALIZED Disposition Time: 12:20 Condition: STABLE
[2018-02-04 11:52] VITALS: BMI 27.8
[2018-02-04 12:07] LABS: BASO # 0.01 K/mm3 (0.0-2.0); BASO % 0.2 % (0.0-3.0); EOS # 0.2 (0.0-0.7); EOS % 2.5 % (1.5-5.0); GRAN # 5.05 (1.4-6.5); GRAN % 82.4 % (50.0-68.0); LYMPH # 0.7 (1.2-3.4); LYMPH % 10.8 % (22.0-35.0); MEAN CELL VOLUME 94.8 fl (80.0-105.0); MEAN CORPUSCULAR HGB CONC 31.7 g/dl (31.0-37.0); MEAN PLATELET VOLUME 9.8 fl (7.0-11.0); MONO # 0.3 (0.1-0.6); MONO % 4.1 % (1.0-6.0); RBC 2.13 10^6/uL (3.5-6.1); RED CELL DISTRIBUTION WIDTH 19.1 % (11.5-14.5); WHITE BLOOD COUNT 6.1 10^3/uL (4.5-11.0)
[2018-02-04 12:10] LABS: INR 1.33; IRON 72 ug/dL (45-180); PARTIAL THROMBOPLASTIN TIME 32.6 Seconds (25.1-36.5); PROTHROMBIN TIME 15.4 SECONDS (9.4-12.5)
[2018-02-04 12:17] LABS: HEMOGLOBIN 6.4 g/dL (14.0-18.0)
[2018-02-04 12:20] LABS: % IRON SATURATION 26 % (20-55); TOTAL IRON BINDING CAPACITY 281 ug/dL (261-462)
[2018-02-04 12:23] LABS: ALBUMIN 3.8 g/dL (3.0-4.8); CALCIUM 8.1 mg/dL (8.4-10.5)
[2018-02-04] MEDS ORDERED: Ergocalciferol 50,000 Intl Units Cap PO SCH (17:30)
[2018-02-04] MEDS: Lactobacillus Acidophilus 500 MU Cap PO SCH (21:24)
[2018-02-05] MEDS ORDERED: Influenza Vaccine 60 mcg/0.5 mL SYR (4YR UP) IM ONE (02:29)
[2018-02-05] MEDS ORDERED: Pneumococcal 23-Valent Vaccine IM ONE (02:29)
--- NOTE | 2018-02-05 05:20 | CON ---
DATE OF CONSULTATION: 02/04/2018 REASON FOR CONSULTATION: Severe anemia, ESRD. HISTORY OF PRESENT ILLNESS: A 67-year-old male known to me from outpatient hemodialysis. The patient was sent to the emergency room because of finding of hemoglobin of 6.2 as outpatient. The patient was recently transfused on 01/17/2018. The patient received 2 units of blood. Once again, his hemoglobin is down to 6.2. The patient has been receiving Venofer and Aranesp on dialysis. Currently, he is being admitted for workup of anemia. He complains of difficulty with his vision in his left eye. He also complains of nonhealing ulcer on the left foot. He denies any chest pain at present. Denies any palpitations. He denies any abdominal pain. He does have severe joint deforming arthritis. PAST MEDICAL AND SURGICAL HISTORY: NIDDM, hypertension, hyperlipidemia, CHF, AICD placement in 01/2017, severe osteoarthritis, left AV graft, recurrent severe anemia. FAMILY HISTORY: Hypertension. SOCIAL HISTORY: No smoking, no alcohol use, no IV drug abuse. MEDICATIONS: Spironolactone 25 b.i.d., hydralazine 50 four times a day, aspirin 81, Coreg 3.125 b.i.d., Feosol 324 b.i.d., Flomax 0.4, Lasix 80 p.o. b.i.d., Lipitor 40, Protonix 20, metolazone 2.5 daily, zinc sulfate. ALLERGIES: NO KNOWN DRUG ALLERGIES. REVIEW OF SYSTEMS: All systems are reviewed, pertinent positives as mentioned in the history of presenting illness, rest unremarkable. PHYSICAL EXAMINATION: GENERAL: Elderly male lying in bed in no acute distress. VITAL SIGNS: Blood pressure 112/69, heart rate 77, respiratory rate 18, temperature 98.1. HEENT: Normocephalic, atraumatic, positive pallor. NECK: Supple, no JVD. LUNGS: Bilateral equal air entry, bilateral equal expansion. CARDIAC: S1 and S2, regular rate and rhythm, no murmur, no rub. ABDOMEN: Soft, nondistended, nontender, bowel sounds present. EXTREMITIES: Severe deformities of small joints of the hands, no edema. LABORATORY DATA: WBC 6, hemoglobin 6.4, hematocrit 20, platelets 131, MCV 94.8. Sodium 141, potassium 5.4, chloride 100, CO2 of 22, BUN 98, creatinine 9.8, glucose 114, calcium 8.1. Iron saturation 26, ferritin 430, AST 30, ALT 26, albumin 3.8. ASSESSMENT: 1. Recurrent severe anemia despite receiving Venofer and Aranesp in dialysis, also receiving 2 units of PRBC 2 weeks ago. 2. Polyclonal gammopathy. 3. End-stage renal disease. 4. Snr-wwibyzw-dxnvakznk diabetes mellitus. 5. Hypertension. 6. Severe osteoarthritis. 7. Congestive heart failure/cardiomyopathy. PLAN: 1. Transfuse 2 units of PRBC on dialysis today. 2. Hematology evaluation. 3. Monitor fingersticks and continue insulin coverage. 4. Podiatry evaluation. 5. ? Bone marrow. Grecia Young MD
[2018-02-05] MEDS ORDERED: Pantoprazole 20 mg EC Tab PO SCH (06:00)
[2018-02-05 08:57] LABS: ALB/GLOB RATIO 0.9 (1.1-1.8); ALBUMIN 3.3 g/dL (3.0-4.8); CALCIUM 8.2 mg/dL (8.4-10.5)
--- NOTE | 2018-02-05 09:04 | CP.PCM.CON ---
<Charis Salguero - Last Filed: 02/05/18 08:59> History of Present Illness - History of Present Illness History of Present Illness: Consult note for Dr. Amos 67 y/o male patient was seen and evaluated at bedside for ulceration to the left foot. Patient states he sees Dr. Contreras and Dr. Interiano in their office, and last saw them 1 week ago for wound care. Patient states he dressed his wound la st. Patient report she is admitted for low Hg/Hct levels. Patient denies any complaints at this time. The patient reports that he does not feel weak or fatigued. He denies dark stools. The patient denies fevers, chills, headache, dizziness, cough, sore throat, chest pain, shortness of breath, dyspena on exertion, abdominal pain, nausea, vomiting, diarrhea, neck/ back pain, urinary/ bowel symptoms, trauma/ injury, or any other complaints. PMHx: arthritis, dialysis (M,W,F), defibrillator, HTN, DM PSHx: L toe wound debridement in the past Review of Systems - Review of Systems All systems: reviewed and no additional remarkable complaints except Review of Systems: As per HPI Past Patient History - Past Social History Smoking Status: Former Smoker - CARDIAC Hx Congestive Heart Failure: Yes (B/L LL +3 edema) Hx Hypertension: Yes Hx Internal Defibrillator: Yes - RENAL Hx Renal Failure: Yes (as per pt "his numbers are off") - ENDOCRINE/METABOLIC Hx Diabetes Mellitus Type 2: Yes - HEMATOLOGICAL/ONCOLOGICAL Hx Anemia: Yes - MUSCULOSKELETAL/RHEUMATOLOGICAL Hx Falls: Yes - PSYCHIATRIC Hx Substance Use: No - SURGICAL HISTORY Other/Comment: L great toe debridement - ANESTHESIA Hx Anesthesia: Yes Hx Anesthesia Reactions: No Hx Malignant Hyperthermia: No Meds Allergies/Adverse Reactions: Allergies Allergy/AdvReac Type Severity Reaction Status Date / Time No Known Allergies Allergy Verified 11/08/16 11:14 - Medications Medications: Current Medications Aspirin (Aspirin Chewable) 81 mg PO DAILY [facility] Atorvastatin Calcium (Lipitor) 40 mg PO DIN [facility] Carvedilol (Coreg) 3.125 mg PO BID [facility] Last Admin: 02/04/18 21:24 Dose: 3.125 mg Ergocalciferol (Drisdol 50,000 Intl Units Cap) 1 cap PO Q7D [facility] Last Admin: 02/04/18 21:25 Dose: 1 cap Ferrous Sulfate (Feosol) 324 mg PO BID [facility] Last Admin: 02/04/18 21:25 Dose: 324 mg Furosemide (Lasix) 80 mg PO BID [facility] Hydralazine HCl (Apresoline) 50 mg PO QID [facility] Last Admin: 02/04/18 21:23 Dose: 50 mg Lactobacillus Acidophilus (Bacid Acidophilus) 1 cap PO BID [facility] Last Admin: 02/04/18 21:24 Dose: 1 cap Metolazone (Zaroxolyn) 2.5 mg PO DAILY [facility] Multi-Ingredient Cream (Hydrocerin Cream) 0 ea TOP DAILY [facility] Pantoprazole Sodium (Protonix Ec Tab) 20 mg PO 0600 [facility] Spironolactone (Aldactone) 25 mg PO BID [facility] Last Admin: 02/04/18 21:23 Dose: 25 mg Tamsulosin HCl (Flomax) 0.4 mg PO DAILY [facility] Zinc Sulfate (Zinc Sulfate 220 Mg Cap) 220 mg PO DAILY [facility] Physical Exam - Constitutional Appears: Well, Non-toxic, No Acute Distress - Head Exam Head Exam: ATRAUMATIC, NORMOCEPHALIC - Extremities Exam Additional comments: Lower Extremity Exam VASC: DP and PT faintly palpable, CFT less than 3 seconds X 10, no edema, TG warm to warm within normal limits NEURO: grossly intact DERM: 3 cm X 3 cm wound at the dorso-medial aspect of hte left 1st MTPJ, mixed fibro-granular base, minimal sanguinous drainage noted, minimal erythema left 1st mPTJ tanner-wound, no malodor, no probe to bone, no tunneling or tracking ORTHO: HAV deformities noted bilaterally, MSK 5/5 bilaterally, no posterior calf pain noted - Neurological Exam Neurological exam: Alert, Oriented x3 - Psychiatric Exam Psychiatric exam: Normal Affect, Normal Mood Results - Vital Signs Recent Vital Signs: Last Vital Signs Temp 99.1 F 02/05/18 08:56 Pulse 71 02/05/18 08:56 Resp 18 02/05/18 08:56 BP 98/60 L 02/05/18 08:56 Pulse Ox 96 02/05/18 08:56 - Labs Result Diagrams: 02/04/18 11:42 02/05/18 07:30 Labs: Laboratory Results - last 24 hr 02/04/18 02/04/18 02/04/18 11:42 11:42 11:42 WBC 6.1 RBC 2.13 L Hgb 6.4 L* Hct 20.2 L* MCV 94.8 MCH 30.0 MCHC 31.7 RDW 19.1 H Plt Count 131 MPV 9.8 Gran % 82.4 H Lymph % (Auto) 10.8 L [place] % (Auto) 4.1 Eos % (Auto) 2.5 Baso % (Auto) 0.2 Gran # 5.05 Lymph # (Auto) 0.7 L [place] # (Auto) 0.3 Eos # (Auto) 0.2 Baso # (Auto) 0.01 PT 15.4 H INR 1.33 APTT 32.6 Sodium 141 Potassium 5.4 H Chloride 100 Carbon Dioxide 25 Anion Gap 22 H BUN 98 H Creatinine 9.8 H* Est GFR ( Amer) 7 Est GFR (Non-Af Amer) 5 POC Glucose (mg/dL) Random Glucose 114 H Calcium 8.1 L Phosphorus Magnesium Iron TIBC % Saturation Ferritin 430.0 Total Bilirubin 0.6 AST 30 ALT 26 Alkaline Phosphatase 126 Total Protein 7.8 Albumin 3.8 Globulin 4.0 Albumin/Globulin Ratio 1.0 L Hep Bs Antigen Hep Bs Antibody Blood Type Antibody Screen Crossmatch BBK History Checked 02/04/18 02/04/18 02/04/18 11:42 11:42 16:00 WBC RBC Hgb Hct MCV MCH MCHC RDW Plt Count MPV Gran % Lymph % (Auto) [place] % (Auto) Eos % (Auto) Baso % (Auto) Gran # Lymph # (Auto) [place] # (Auto) Eos # (Auto) Baso # (Auto) PT INR APTT Sodium Potassium Chloride Carbon Dioxide Anion Gap BUN Creatinine Est GFR ( Amer) Est GFR (Non-Af Amer) POC Glucose (mg/dL) Random Glucose Calcium Phosphorus Magnesium Iron 72 TIBC 281 % Saturation 26 Ferritin Total Bilirubin AST ALT Alkaline Phosphatase Total Protein Albumin Globulin Albumin/Globulin Ratio Hep Bs Antigen Negative Hep Bs Antibody Blood Type A POSITIVE Antibody Screen Negative Crossmatch See Detail BBK History Checked Patient has bt 02/04/18 02/05/18 02/05/18 16:00 06:00 06:31 WBC RBC Hgb Hct MCV MCH MCHC RDW Plt Count MPV Gran % Lymph % (Auto) [place] % (Auto) Eos % (Auto) Baso % (Auto) Gran # Lymph # (Auto) [place] # (Auto) Eos # (Auto) Baso # (Auto) PT INR APTT Sodium Potassium Chloride Carbon Dioxide Anion Gap BUN Creatinine Est GFR ( Amer) Est GFR (Non-Af Amer) POC Glucose (mg/dL) 85 Random Glucose Calcium Phosphorus 4.9 H Magnesium Iron TIBC % Saturation Ferritin Total Bilirubin AST ALT Alkaline Phosphatase Total Protein Albumin Globulin Albumin/Globulin Ratio Hep Bs Antigen Hep Bs Antibody Positive Blood Type Antibody Screen Crossmatch BBK History Checked 02/05/18 07:30 WBC RBC Hgb Hct MCV MCH MCHC RDW Plt Count MPV Gran % Lymph % (Auto) [place] % (Auto) Eos % (Auto) Baso % (Auto) Gran # Lymph # (Auto) [place] # (Auto) Eos # (Auto) Baso # (Auto) PT INR APTT Sodium 139 Potassium 4.6 Chloride 103 Carbon Dioxide 24 Anion Gap 17 BUN 56 H Creatinine 6.6 H Est GFR ( Amer) 10 Est GFR (Non-Af Amer) 8 POC Glucose (mg/dL) Random Glucose 93 Calcium 8.2 L Phosphorus Magnesium 2.0 Iron TIBC % Saturation Ferritin Total Bilirubin 0.7 AST 28 ALT 27 Alkaline Phosphatase 103 Total Protein 7.0 Albumin 3.3 Globulin 3.7 Albumin/Globulin Ratio 0.9 L Hep Bs Antigen Hep Bs Antibody Blood Type Antibody Screen Crossmatch BBK History Checked Assessment & Plan - Assessment and Plan (Free Text) Assessment: 67 y/o male seen and evaluated for wound to the Left 1st MTPJ Plan: Patient seen and evaluated with Dr. mAos Chart, labs and vitals reviewed- afebrile, absent leukocytosis Wound Culture ordered from L foot wound MATTHEW/PVR ordered of B/L lower extremities Wound cleansed with saline, and adaptic, gauze, kerlix applied Podiatry will continue to follow patient while in house - Date & Time Date: 02/05/18 Time: 09:06 <Kurtis Amos - Last Filed: 02/08/18 13:01> Meds - Medications Medications: Current Medications Aspirin (Aspirin Chewable) 81 mg PO DAILY [facility] Last Admin: 02/08/18 09:18 Dose: 81 mg Atorvastatin Calcium (Lipitor) 40 mg PO DIN [facility] Last Admin: 02/07/18 18:30 Dose: 40 mg Carvedilol (Coreg) 3.125 mg PO BID [facility] Last Admin: 02/08/18 09:19 Dose: 3.125 mg Ergocalciferol (Drisdol 50,000 Intl Units Cap) 1 cap PO Q7D [facility] Last Admin: 02/04/18 21:25 Dose: 1 cap Ferrous Sulfate (Feosol) 324 mg PO BID [facility] Last Admin: 02/08/18 09:17 Dose: 324 mg Heparin Sodium (Porcine) (Heparin) 3,000 units IVP MWF PRN; Protocol PRN Reason: HEMODIALYSIS BOLUS Last Admin: 02/07/18 08:41 Dose: 3,000 units Hydralazine HCl (Apresoline) 50 mg PO QID [facility] Last Admin: 02/08/18 09:18 Dose: 50 mg Lactobacillus Acidophilus (Bacid Acidophilus) 1 cap PO BID [facility] Last Admin: 02/08/18 09:17 Dose: 1 cap Multi-Ingredient Cream (Hydrocerin Cream) 0 ea TOP DAILY [facility] Last Admin: 02/07/18 10:00 Dose: Not Given Pantoprazole Sodium (Protonix Inj) 40 mg IVP Q12 [facility] Last Admin: 02/08/18 09:17 Dose: 40 mg Tamsulosin HCl (Flomax) 0.4 mg PO DAILY [facility] Last Admin: 02/08/18 09:18 Dose: 0.4 mg Zinc Sulfate (Zinc Sulfate 220 Mg Cap) 220 mg PO DAILY [facility] Last Admin: 02/08/18 09:17 Dose: 220 mg Results - Vital Signs Recent Vital Signs: Last Vital Signs Temp 98.3 F 02/08/18 06:00 Pulse 70 02/08/18 09:19 Resp 20 02/08/18 06:00 BP 113/74 02/08/18 09:19 Pulse Ox 99 02/08/18 06:00 - Labs Result Diagrams: 02/07/18 06:15 02/07/18 15:46 Labs: Laboratory Results - last 24 hr 02/05/18 02/06/18 02/06/18 06:00 12:14 12:14 Potassium POC Glucose (mg/dL) Total Protein (PEP) 6.4 Albumin (PEP) 3.2 L 3.1 L Eidbr-2-Djuqqzbzx 0.4 H 0.3 Sfghu-6-Kudeccdpc 0.6 0.6 Erso-7-Crnshphe 0.4 0.3 L Ocmz-6-Lxvxpgit 0.3 0.4 Gamma Globulins 1.6 1.6 Abnorm Protein Band 1 TEST NOT PERFORMED TEST NOT PERFORMED Abnorm Protein Band 2 TEST NOT PERFORMED TEST NOT PERFORMED Abnorm Protein Band 3 TEST NOT PERFORMED TEST NOT PERFORMED Prostate Specific Ag IgG 1738 H IgA 277 IgM 119 DOMINIQUE & SPEP Interp See note See note Serum Immunofixation Not detected 02/07/18 02/07/18 02/07/18 14:00 15:46 21:30 Potassium 4.1 POC Glucose (mg/dL) 128 H Total Protein (PEP) Albumin (PEP) Weqfs-6-Xfhjshfvb Gdfry-6-Tpqfpxzcy Cmji-3-Rwtfeqbv Cwpf-4-Rlbnefom Gamma Globulins Abnorm Protein Band 1 Abnorm Protein Band 2 Abnorm Protein Band 3 Prostate Specific Ag 6.4 H IgG IgA IgM DOMINIQUE & SPEP Interp Serum Immunofixation 02/08/18 02/08/18 06:47 11:01 Potassium POC Glucose (mg/dL) 67 155 H Total Protein (PEP) Albumin (PEP) Xxcwa-6-Gqddwpvva Rchec-4-Qbruqogaf Xuzs-3-Ubzlzxmr Ubkz-7-Smahdeki Gamma Globulins Abnorm Protein Band 1 Abnorm Protein Band 2 Abnorm Protein Band 3 Prostate Specific Ag IgG IgA IgM DOMINIQUE & SPEP Interp Serum Immunofixation Attending/Attestation - Attestation I have personally seen and examined this patient.: Yes I have fully participated in the care of the patient.: Yes I have reviewed all pertinent clinical information: Yes
[2018-02-05] MEDS: Lactobacillus Acidophilus 500 MU Cap PO SCH ×2 (10:02→17:53)
[2018-02-05] MEDS: Hydrocerin(120 gm) TOP SCH (10:03)
[2018-02-05 10:10] LABS: BASO # 0.02 K/mm3 (0.0-2.0); BASO % 0.5 % (0.0-3.0); EOS # 0.2 (0.0-0.7); EOS % 3.9 % (1.5-5.0); GRAN # 3.12 (1.4-6.5); GRAN % 72.2 % (50.0-68.0); LYMPH # 0.7 (1.2-3.4); MEAN CELL VOLUME 94.1 fl (80.0-105.0); MEAN CORPUSCULAR HEMOGLOBIN 30.9 pg (25.0-35.0); MEAN CORPUSCULAR HGB CONC 32.9 g/dl (31.0-37.0); MEAN PLATELET VOLUME 10.4 fl (7.0-11.0); MONO # 0.3 (0.1-0.6); MONO % 7.4 % (1.0-6.0); RBC 2.2 10^6/uL (3.5-6.1); RED CELL DISTRIBUTION WIDTH 19.1 % (11.5-14.5); WHITE BLOOD COUNT 4.3 10^3/uL (4.5-11.0)
[2018-02-05 10:11] LABS: HEMOGLOBIN 6.8 g/dL (14.0-18.0)
[2018-02-05] MEDS: metOLazone 2.5 MG TAB PO SCH (10:15)
[2018-02-06 06:45] LABS: MEAN CELL VOLUME 92.9 fl (80.0-105.0); MEAN CORPUSCULAR HEMOGLOBIN 29.9 pg (25.0-35.0); MEAN CORPUSCULAR HGB CONC 32.1 g/dl (31.0-37.0); MEAN PLATELET VOLUME 10.2 fl (7.0-11.0); RBC 2.68 10^6/uL (3.5-6.1); RED CELL DISTRIBUTION WIDTH 18.2 % (11.5-14.5); WHITE BLOOD COUNT 4.5 10^3/uL (4.5-11.0)
[2018-02-06 06:54] LABS: IRON 43 ug/dL (45-180)
--- NOTE | 2018-02-06 07:00 | HP ---
DATE OF EXAM: 02/04/2018 Patient was seen and examined at the bedside on 02/04/2018. CHIEF COMPLAINT: Abnormal labs, fatigue, tired. HISTORY OF PRESENT ILLNESS: Mr. Loc Fuentes is a 67-year-old male with past medical history of arthritis; dialysis; renal failure, on hemodialysis three times a week; defibrillated; hypertension; osteomyelitis, came to the emergency department after being advised by Dr. Young to come for further evaluation for low hemoglobin and feeling fatigued and tired. The patient noticed he was on his way to the dialysis center , dr Young send him to the emergency department. He noticed that his blood count was checked five days ago. He also noticed that at least he received blood transfusion two weeks ago and dialysis two days ago. The patient reports that he does not have shortness of breath, no fever, no chills. Denies dark stool. The patient denies fever, chills, dizziness, sore throat, chest pain, shortness of breath, dyspnea. No bowel symptoms. No trauma. No injury. I saw the patient in the room. PAST MEDICAL HISTORY: As above, history of left lower lobe pneumonia, hypertension, diabetes mellitus type 2, grade 2 debridement. FAMILY HISTORY: Father and mother, noncontributory. HABITS: No smoking. No drugs. No ethanol. ALLERGIES: THE PATIENT IS NOT ALLERGIC WITH ANY MEDICATIONS. REVIEW OF SYSTEMS: The patient was examined on bedside, looking comfortable. No nausea, vomiting, diarrhea. No headache. No dizziness. No chest pain. No palpitation. No hematuria. No hematochezia. No fever. No chills. PHYSICAL EXAMINATION VITAL SIGNS: Temperature 98.1, pulse 77, blood pressure 108/69, respiratory rate 18. HEENT: Head, normocephalic, atraumatic. Eyes, PERRLA. Extraocular muscles are intact. Conjunctivae clear. Nose patent. Mucous membranes moist. NECK: Supple. No carotid bruits. No JVD or thyromegaly. CHEST: Bilaterally symmetrical. HEART: S1, S2 positive. LUNGS: Clear to auscultation. ABDOMEN: Soft. Bowel sounds present. No organomegaly. EXTREMITIES: No edema. No cyanosis. NEUROLOGIC: The patient is awake, alert. Moving all four extremities. No focal deficits. LABORATORY DATA: White blood cell 6.1, hemoglobin 6.4, hematocrit 20.2, platelets 131,000. Sodium 141, potassium 5.4, BUN 98, creatinine 9.8, glucose 114. Calcium 8.1. ASSESSMENT AND PLAN: Mr. Loc Fuentes is a 67-year-old male with anemia; hyperkalemia; renal insufficiency, on hemodialysis three times a week; hyperglycemia; hypocalcemia, came with a low hemoglobin. 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 Hematology consult called with Dr. Bermudez. We will call Gastroenterology consult also. The patient has a history of gzm-tsskqii-njtbzsmcl diabetes mellitus, hypertension, hypercholesterolemia, congestive heart failure, automatic implantable cardioverter-defibrillator placement, severe osteoarthritis, left arteriovenous graft, recurrent severe anemia. As per the patient, a colonoscopy was done a couple of months ago. We will order a stool test. We will give packed red blood cells, Gastrointestinal, deep venous thrombosis prophylaxis. Repeat labs. We will follow up. Cherelle Fritz MD [facility]
[2018-02-06 07:04] LABS: % IRON SATURATION 16 % (20-55); TOTAL IRON BINDING CAPACITY 262 ug/dL (261-462)
[2018-02-06 07:47] LABS: CALCIUM 8.2 mg/dL (8.4-10.5)
[2018-02-06] MEDS: Lactobacillus Acidophilus 500 MU Cap PO SCH ×2 (09:51→17:02)
[2018-02-06] MEDS: metOLazone 2.5 MG TAB PO SCH (09:52)
[2018-02-06] MEDS: Hydrocerin(120 gm) TOP SCH (10:00)
--- NOTE | 2018-02-06 10:14 | CP.PCM.PN ---
Subjective - Date & Time of Evaluation Date of Evaluation: 02/06/18 Time of Evaluation: 10:09 - Subjective Subjective: Podiatry progress note for Dr. Contreras 67 y/o male patient was seen and evaluated at bedside for ulceration to the left foot. Patient is resting comfortably and denies any acute overnight events. Patient denies fevers, chills, headache, dizziness, chest pain, shortness of breath, abdominal pain, nausea, vomiting, or diarrhea Objective - Vital Signs/Intake and Output Vital Signs (last 24 hours): Temp Pulse Resp BP Pulse Ox 99 F 83 20 128/81 100 02/06/18 06:00 02/06/18 09:52 02/06/18 06:00 02/06/18 09:52 02/06/18 06:00 Intake and Output: 02/06/18 02/06/18 06:59 18:59 Intake Total 995 Output Total 1 Balance 994 - Medications Medications: Current Medications Aspirin (Aspirin Chewable) 81 mg PO DAILY [facility] Last Admin: 02/06/18 09:52 Dose: 81 mg Atorvastatin Calcium (Lipitor) 40 mg PO DIN [facility] Last Admin: 02/05/18 17:53 Dose: 40 mg Carvedilol (Coreg) 3.125 mg PO BID [facility] Last Admin: 02/06/18 09:51 Dose: 3.125 mg Ergocalciferol (Drisdol 50,000 Intl Units Cap) 1 cap PO Q7D [facility] Last Admin: 02/04/18 21:25 Dose: 1 cap Ferrous Sulfate (Feosol) 324 mg PO BID [facility] Last Admin: 02/06/18 09:52 Dose: 324 mg Furosemide (Lasix) 80 mg PO BID [facility] Last Admin: 02/06/18 09:52 Dose: 80 mg Heparin Sodium (Porcine) (Heparin) 3,000 units IVP MWF PRN; Protocol PRN Reason: HEMODIALYSIS BOLUS Hydralazine HCl (Apresoline) 50 mg PO QID [facility] Last Admin: 02/06/18 09:52 Dose: 50 mg Lactobacillus Acidophilus (Bacid Acidophilus) 1 cap PO BID [facility] Last Admin: 02/06/18 09:51 Dose: 1 cap Metolazone (Zaroxolyn) 2.5 mg PO DAILY [facility] Last Admin: 02/06/18 09:52 Dose: 2.5 mg Multi-Ingredient Cream (Hydrocerin Cream) 0 ea TOP DAILY [facility] Last Admin: 02/05/18 10:03 Dose: 1 gm Pantoprazole Sodium (Protonix Inj) 40 mg IVP Q12 [facility] Last Admin: 02/06/18 09:51 Dose: 40 mg Spironolactone (Aldactone) 25 mg PO BID [facility] Last Admin: 02/06/18 09:53 Dose: 25 mg Tamsulosin HCl (Flomax) 0.4 mg PO DAILY [facility] Last Admin: 02/06/18 09:52 Dose: 0.4 mg Zinc Sulfate (Zinc Sulfate 220 Mg Cap) 220 mg PO DAILY [facility] Last Admin: 02/06/18 09:53 Dose: 220 mg - Labs Labs: 02/06/18 06:30 02/06/18 06:30 PT 15.4 SECONDS (9.4-12.5) H 02/04/18 11:42 INR 1.33 02/04/18 11:42 APTT 32.6 Seconds (25.1-36.5) 02/04/18 11:42 - Constitutional Appears: Well, Non-toxic, No Acute Distress - Head Exam Head Exam: ATRAUMATIC, NORMOCEPHALIC - Extremities Exam Additional comments: Lower Extremity Exam VASC: DP and PT faintly palpable, CFT less than 3 seconds X 10, no edema, TG warm to warm within normal limits NEURO: grossly intact DERM: 3 cm X 3 cm wound at the dorso-medial aspect of hte left 1st MTPJ, mixed fibro-granular base, minimal sanguinous drainage noted, minimal erythema left 1st mPTJ tanner-wound, no malodor, no probe to bone, no tunneling or tracking ORTHO: HAV deformities noted bilaterally, MSK 5/5 bilaterally, no posterior calf pain noted - Neurological Exam Neurological Exam: Alert, Awake, Oriented x3 - Psychiatric Exam Psychiatric exam: Normal Affect, Normal Mood Assessment and Plan - Assessment and Plan (Free Text) Assessment: 67 y/o male seen and evaluated for wound to the Left 1st MTPJ Plan: Patient seen and evaluated with Dr. Amos Chart, labs and vitals reviewed- afebrile, absent leukocytosis Wound Culture- Gram Negative Rods MATTHEW/PVR of B/L lower extremities: normal to the R side, mild-borderline PAD on the left Wound cleansed with saline, and dressed with xeroform, gauze, kerlix applied Podiatry will continue to follow patient while in house
[2018-02-06] MEDS ORDERED: Barium Sulfate Susp 2.1% w/v, 2.0% w/w 450 mL Bottle PO ONE (10:34)
--- NOTE | 2018-02-06 11:02 | CP.PCM.PN ---
<Yamilka Novoa - Last Filed: 02/06/18 10:57> Subjective - Date & Time of Evaluation Date of Evaluation: 02/06/18 Time of Evaluation: 07:00 - Subjective Subjective: GI Fellow PGY5 Progress Note Pt seen and evaluated at bedside, pt denies any abdominal pain. No rectal bleeding. No SOB or weakness. No prior GI bleed. ROS: A 12pt ROS was negative except as above. Objective - Vital Signs/Intake and Output Vital Signs (last 24 hours): Temp Pulse Resp BP Pulse Ox 99 F 83 20 128/81 100 02/06/18 06:00 02/06/18 09:52 02/06/18 06:00 02/06/18 09:52 02/06/18 06:00 Intake and Output: 02/06/18 02/06/18 06:59 18:59 Intake Total 995 Output Total 1 Balance 994 - Medications Medications: Current Medications Aspirin (Aspirin Chewable) 81 mg PO DAILY [facility] Last Admin: 02/06/18 09:52 Dose: 81 mg Atorvastatin Calcium (Lipitor) 40 mg PO DIN [facility] Last Admin: 02/05/18 17:53 Dose: 40 mg Carvedilol (Coreg) 3.125 mg PO BID [facility] Last Admin: 02/06/18 09:51 Dose: 3.125 mg Ergocalciferol (Drisdol 50,000 Intl Units Cap) 1 cap PO Q7D [facility] Last Admin: 02/04/18 21:25 Dose: 1 cap Ferrous Sulfate (Feosol) 324 mg PO BID [facility] Last Admin: 02/06/18 09:52 Dose: 324 mg Furosemide (Lasix) 80 mg PO BID [facility] Last Admin: 02/06/18 09:52 Dose: 80 mg Heparin Sodium (Porcine) (Heparin) 3,000 units IVP MWF PRN; Protocol PRN Reason: HEMODIALYSIS BOLUS Hydralazine HCl (Apresoline) 50 mg PO QID [facility] Last Admin: 02/06/18 09:52 Dose: 50 mg Lactobacillus Acidophilus (Bacid Acidophilus) 1 cap PO BID [facility] Last Admin: 02/06/18 09:51 Dose: 1 cap Metolazone (Zaroxolyn) 2.5 mg PO DAILY [facility] Last Admin: 02/06/18 09:52 Dose: 2.5 mg Multi-Ingredient Cream (Hydrocerin Cream) 0 ea TOP DAILY [facility] Last Admin: 02/05/18 10:03 Dose: 1 gm Pantoprazole Sodium (Protonix Inj) 40 mg IVP Q12 [facility] Last Admin: 02/06/18 09:51 Dose: 40 mg Spironolactone (Aldactone) 25 mg PO BID [facility] Last Admin: 02/06/18 09:53 Dose: 25 mg Tamsulosin HCl (Flomax) 0.4 mg PO DAILY [facility] Last Admin: 02/06/18 09:52 Dose: 0.4 mg Zinc Sulfate (Zinc Sulfate 220 Mg Cap) 220 mg PO DAILY [facility] Last Admin: 02/06/18 09:53 Dose: 220 mg - Labs Labs: 02/06/18 06:30 02/06/18 06:30 PT 15.4 SECONDS (9.4-12.5) H 02/04/18 11:42 INR 1.33 02/04/18 11:42 APTT 32.6 Seconds (25.1-36.5) 02/04/18 11:42 - Constitutional Appears: Non-toxic, No Acute Distress - Head Exam Head Exam: ATRAUMATIC, NORMAL INSPECTION, NORMOCEPHALIC - Eye Exam Eye Exam: EOMI, Normal appearance, PERRL Pupil Exam: PERRL - ENT Exam ENT Exam: Mucous Membranes Moist - Respiratory Exam Respiratory Exam: Clear to Ausculation Bilateral, NORMAL BREATHING PATTERN - Cardiovascular Exam Cardiovascular Exam: RRR, +S1, +S2 - GI/Abdominal Exam GI & Abdominal Exam: Soft, Normal Bowel Sounds. absent: Tenderness - Rectal Exam Rectal Exam: absent: Black Stool, Bloody Stool, Hemorrhoids Additional comments: brown stool - Extremities Exam Extremities Exam: Full ROM - Neurological Exam Neurological Exam: Alert, Awake, Oriented x3 - Psychiatric Exam Psychiatric exam: Normal Affect, Normal Mood - Skin Skin Exam: Dry, Intact, Normal Color, Warm Assessment and Plan - Assessment and Plan (Free Text) Assessment: This is 67yM with ESRd on HD sent to ER by Quality Lead for low Hgb. Pt received a blood transfusion of 2U two weeks ago in the ER and left AMA. Pt was sent again for the same thing. Pt is asymptomatic. Pt reports that since the two weeks he had a colonoscopy with at [facility] in [place] and it was negative. Possible EGD at [facility] per ? No active GI bleeding reported. 1. Anemia 2. ESRD Plan: -Continue supportive care -IV PPI bid -No active GI bleeding, rectal exam negative -s/p 4U PRBCs -Monitor H/H, Hgb 8.0 -Pt reports recent colonoscopy 2 weeks ago, need to get reports -Possible EGD in recent past? -Will keep NPO tomorrow for possible EGD, Dr. Wynn find out about [facility] records -Will continue to follow closely <Foreign Wynn V - Last Filed: 02/06/18 23:46> Objective - Vital Signs/Intake and Output Vital Signs (last 24 hours): Temp Pulse Resp BP Pulse Ox 97.7 F 70 18 112/76 100 02/06/18 22:00 02/06/18 22:00 02/06/18 22:00 02/06/18 22:00 02/06/18 22:00 Intake and Output: 02/06/18 02/07/18 18:59 06:59 Intake Total 1100 Balance 1100 - Medications Medications: Current Medications Aspirin (Aspirin Chewable) 81 mg PO DAILY [facility] Last Admin: 02/06/18 09:52 Dose: 81 mg Atorvastatin Calcium (Lipitor) 40 mg PO DIN [facility] Last Admin: 02/06/18 17:02 Dose: 40 mg Carvedilol (Coreg) 3.125 mg PO BID [facility] Last Admin: 02/06/18 17:02 Dose: 3.125 mg Ergocalciferol (Drisdol 50,000 Intl Units Cap) 1 cap PO Q7D [facility] Last Admin: 02/04/18 21:25 Dose: 1 cap Ferrous Sulfate (Feosol) 324 mg PO BID [facility] Last Admin: 02/06/18 17:02 Dose: 324 mg Heparin Sodium (Porcine) (Heparin) 3,000 units IVP MWF PRN; Protocol PRN Reason: HEMODIALYSIS BOLUS Hydralazine HCl (Apresoline) 50 mg PO QID [facility] Last Admin: 02/06/18 21:06 Dose: Not Given Lactobacillus Acidophilus (Bacid Acidophilus) 1 cap PO BID [facility] Last Admin: 02/06/18 17:02 Dose: 1 cap Multi-Ingredient Cream (Hydrocerin Cream) 0 ea TOP DAILY [facility] Last Admin: 02/06/18 10:00 Dose: Not Given Pantoprazole Sodium (Protonix Inj) 40 mg IVP Q12 [facility] Last Admin: 02/06/18 21:04 Dose: 40 mg Tamsulosin HCl (Flomax) 0.4 mg PO DAILY [facility] Last Admin: 02/06/18 09:52 Dose: 0.4 mg Zinc Sulfate (Zinc Sulfate 220 Mg Cap) 220 mg PO DAILY [facility] Last Admin: 02/06/18 09:53 Dose: 220 mg - Labs Labs: 02/06/18 06:30 02/06/18 06:30 PT 15.4 SECONDS (9.4-12.5) H 02/04/18 11:42 INR 1.33 02/04/18 11:42 APTT 32.6 Seconds (25.1-36.5) 02/04/18 11:42 Attending/Attestation - Attestation I have personally seen and examined this patient.: Yes I have fully participated in the care of the patient.: Yes I have reviewed all pertinent clinical information, including history, physical exam and plan: Yes Notes (Text): This is an addendum to GI progress report dictated by the GI Fellow.The patient was seen and examined earlier. Medical records, lab studies, imagings were reviewed. Last 24 hours events reviewed. Agreed with the above treatment plan as outlined in GI Fellow 's notes with the addition of the following 02/06/18 23:46
[2018-02-06 12:41] LABS: FOLATE 19.4 ng/mL
--- NOTE | 2018-02-06 15:19 | PN ---
DATE: 02/05/2018 SUBJECTIVE: The patient is seen lying in bed. He is awake, he is alert, is comfortable. He is receiving to third unit of PRBC currently. He received two units of PRBC on dialysis yesterday. He denies any chest pain. He denies any palpitations. PHYSICAL EXAMINATION: GENERAL: Elderly male lying in bed. VITAL SIGNS: Blood pressure 120/80, heart rate 84, respiratory rate 18 and temperature 99. HEENT: Normocephalic, atraumatic, positive pallor. NECK: Supple, no JVD. LUNGS: Bilateral equal entry, bilateral equal expansion, no rales. CARDIAC: S1 and S2, regular rate rhythm, no murmur, no rub. ABDOMEN: Soft, nondistended, nontender, bowel sounds present. EXTREMITIES: No lower extremity edema. LABORATORY DATA: WBC 4, hemoglobin 6.8, hematocrit 20.7 and platelets 111,000. Sodium 139, potassium 4.6, chloride 103, CO2 of 24, BUN 56, creatinine 6.6, glucose 93, calcium 8.2, magnesium 2, AST 28, ALT 27 and albumin 3.3. MEDICATIONS: List reviewed. ASSESSMENT: 1. Severe anemia, recurrent anemia, the patient received two units of blood transfusion on January 17, also he received two units of blood yesterday, needs hematology workup. 2. Noninsulin-dependent diabetes mellitus. 3. Hypertension. 4. End-stage renal disease. 5. Severe joint deforming osteoarthritis. PLAN: 1. Transfuse two units of blood today, total of four. 2. Await hematology evaluation. 3. GI evaluation, the patient had an outpatient colonoscopy which did not show any evidence of bleeding or source of bleeding. 4. Discontinue Aldactone. 5. Discontinue Lasix. Discontinue metolazone. Grecia Young MD
--- NOTE | 2018-02-06 15:40 | CT ---
PROCEDURE: CT Abdomen and Pelvis without IV contrast. HISTORY: anemia COMPARISON: Abdominal ultrasound performed 11/17/16 TECHNIQUE: Contiguous axial images of the abdomen and pelvis. Oral contrast was administered. No IV contrast given. Coronal and Sagittal reformats generated and reviewed. Radiation dose: Total exam DLP = 836.73 mGy-cm. This CT exam was performed using one or more of the following dose reduction techniques: Automated exposure control, adjustment of the mA and/or kV according to patient size, and/or use of iterative reconstruction technique. FINDINGS: There is limited evaluation of the solid organs without the administration of IV contrast. LOWER THORAX: No visible consolidation, pleural effusion, or pneumothorax. Partially imaged cardiomegaly. Valvular calcifications. Partially imaged AICD lead. LIVER: Hepatomegaly. Heterogeneous hepatic parenchyma. Subtle mildly nodular hepatic contour. GALLBLADDER AND BILE DUCTS: Cholelithiasis. PANCREAS: Fatty atrophy. SPLEEN: Unremarkable unenhanced appearance. ADRENALS: Bilateral adrenal gland hypertrophy. KIDNEYS AND URETERS: No hydronephrosis or obstructing renal calculus. BLADDER: Irregularly thick walled and under distended urinary bladder. REPRODUCTIVE: Enlarged heterogeneous prostate gland measures approximately 5.0 x 5.4 cm. APPENDIX: The presumed appendix appears within normal limits of caliber. No secondary signs of acute appendicitis. BOWEL: The stomach is nondistended. The bowel loops appear within normal limits of caliber without evidence of intestinal obstruction. PERITONEUM: Perihepatic and perisplenic ascites. Small pelvic free fluid. No definite free air. LYMPH NODES: No bulky lymphadenopathy identified. VASCULATURE: No aortic aneurysm. Dense atherosclerotic calcifications of the aorta. BONES: Degenerative changes. OTHER FINDINGS: Small fluid within a small umbilical hernia. IMPRESSION: Hepatomegaly. Heterogeneous hepatic parenchyma. Subtle mild nodular hepatic contour. Correlate clinically for possibility of cirrhosis. Cholelithiasis. Irregularly thick-walled under distended urinary bladder. Recommend correlation with urinalysis. Heterogeneous enlarged prostate gland. Recommend correlation with PSA. Perihepatic and perisplenic ascites. Small pelvic free fluid. Additional findings as above.
[2018-02-07 06:45] LABS: INR 1.35; PROTHROMBIN TIME 15.6 SECONDS (9.4-12.5)
[2018-02-07 07:01] LABS: MEAN CELL VOLUME 93.3 fl (80.0-105.0); MEAN CORPUSCULAR HGB CONC 32.1 g/dl (31.0-37.0); MEAN PLATELET VOLUME 9.9 fl (7.0-11.0); RBC 2.67 10^6/uL (3.5-6.1); RED CELL DISTRIBUTION WIDTH 18.2 % (11.5-14.5); WHITE BLOOD COUNT 4.7 10^3/uL (4.5-11.0)
[2018-02-07 07:24] LABS: ALB/GLOB RATIO 0.9 (1.1-1.8); ALBUMIN 3.4 g/dL (3.0-4.8); CALCIUM 8.1 mg/dL (8.4-10.5)
--- NOTE | 2018-02-07 07:31 | PN ---
DATE: 02/06/2018 HEMATOLOGY/ONCOLOGY PROGRESS NOTE. Patient is in room 566, bed 1. This is a followup from visit yesterday. SUBJECTIVE: Patient was seen and evaluated at the bedside. Denies any abdominal pain, rectal bleeding or shortness of breath, weakness, or prior GI bleeding. Patient is in the process of getting CAT scan with oral contrast for today. Patient tells me that he has had a recent colonoscopy and his last blood transfusion was just a few weeks ago and he again received 2 units of blood yesterday while on dialysis. Patient, currently at this point in time, denies any significant abdominal pain. No significant hematochezia, shortness of breath or any prior GI bleed. The 12-point review of systems is negative except for what is mentioned in the subjective complaints. Patient is awake, alert, and oriented. PHYSICAL EXAMINATION: GENERAL: Patient appears to be alert, oriented. No significant distress. VITAL SIGNS: T-max is 99. Pulse is 83, respirations 20, blood pressure is 128/81, pulse ox is 100% on room air. HEENT: Head is normocephalic, atraumatic. Conjunctivae pale. Sclerae are anicteric. Pupils are equally reactive. The patient has vent deformities of his joints involving both his hands. NECK: Supple. There is no adenopathy. No jugular venous distention noted. LUNGS: Clear to percussion and auscultation. CARDIOVASCULAR SYSTEM: Reveals PMI to be in the fifth intercostal space. S1 and S2 normal. No gallop or murmur is heard. Patient has an AICD. ABDOMEN: Soft, nontender. No rebound, rigidity or guarding is noted. RECTAL: The patient has bloody stool, which is new, positive for blood. EXTREMITIES: Reveals full range of motion. At this point in time, there is no cyanosis or clubbing. Patient has a nonhealing ulcer in the left foot, which is being monitored by the Podiatry service. NEUROLOGIC: Higher functions are normal. No focal deficits presently are noted. SKIN: Skin turgor is dry. Patient has a nonhealing wound in the left leg related to probably a combination of his end-stage renal disease and medically speaking from his ongoing medical issues related to peripheral vascular disease as well. LABORATORY DATA: Lab data from today reveals the following. White count is 4.5, hemoglobin 8, hematocrit 24.9, platelet count of 112,000. Sodium is 138, K is 4.8, chloride is 103, CO2 is 23, BUN of 80, creatinine of 8.5 and blood sugar of 99. Patient is on dialysis 3 times a week, Mondays, Wednesdays, and Fridays. PT, INR is within normal limits. ASSESSMENT, NOTES AND PLAN: Based on the review of the labs and review of the peripheral smear, patient has anemia, which is of concern at this point as to why the patient is requiring blood transfusions in the phase of getting both IV Venofer and Aranesp as an outpatient on dialysis. Patient also had recent blood transfusion, raising the issue of bleeding from the intestinal tract. Patient tells me that he had a recent colonoscopy by [facility] and he is now being prepped for possible esophagogastroduodenoscopy tomorrow by Dr. Wynn. Patient in the meantime tells me to have him checked up for both B12 and folate deficiency. I have ordered other blood work as well including the check for serum protein immunofixation and serum protein electrophoresis, and free kappa light chains and along with this, we will also screen him for paroxysmal nocturnal hemoglobinuria as well to make sure he does not have any intrinsic marrow pathology. Cause for the drop in the platelet count is also unclear. We will have to keep that in mind as well. I reviewed all his medications currently that he is taking. He is on hydralazine 50 mg p.o. daily, aspirin 81 mg daily. He is on lactobacillus caps one cap b.i.d., carvedilol 3.125 mg p.o. b.i.d. He is on Drisdol 50,000 units once a week, ferrous sulfate 324 mg p.o. b.i.d., Flomax 0.4 mg daily. He is on heparin 3000 units IVP p.r.n. for hemodialysis catheterization. He is on atorvastatin 40 mg p.o. daily and pantoprazole 40 mg IV every 12 hours. He is on zinc sulfate 220 mg p.o. daily. We will discuss my findings with both GI and primary doctor as well. Spoke to the patient in view of the dropping count. We will also have to make sure that there is no intrinsic marrow pathology that is contributing to the situation. I told the patient that to be may want to prep him for also bone marrow aspiration biopsy as he was in the hospital several months ago, at which time, he was also anemic and we thought at that time it was related to multiple comorbid medical factors as a result of his underlying end-stage renal disease on dialysis. Patient has been on dialysis now for about a year. PLAN: As above, I had detailed discussion with the patient and we will try to arrange for the marrow aspiration biopsy as soon as the EGD done tomorrow afternoon. Patient is going to be on dialysis as well. Routine post exam instructions were given to the patient. Spoke to PMD, Dr. Fritz as well in great details. Time spent with the patient greater than 45 minutes in order to collate all the information, discussed with the patient in details. I also reviewed the CAT scan of abdomen and pelvis that was done, which shows enlargement of the prostate, enlarged liver, and some perihepatic ascites. Other than that, no significant pathology was seen. Patient has bilateral adrenal hyperplasia. Etiology of which is uncertain at this point. We will follow the patient with you and make appropriate recommendations. Karli Bermudez MD
--- NOTE | 2018-02-07 07:39 | CP.PCM.PN ---
Subjective - Date & Time of Evaluation Date of Evaluation: 02/07/18 Time of Evaluation: 11:00 - Subjective Subjective: Ck Doty-Internal Medicine Resident- Hematology Oncology Progress Note Subjective: Patient seen and examined. No acute events overnight. Offers no new complaints at this time. Denies fever, chills, chest pain, SOB. 12 point ROS negative except as indicated in HPI Physical Examination: - Constitutional Appears: Non-toxic, No Acute Distress - Head Exam Head Exam: ATRAUMATIC, NORMAL INSPECTION, NORMOCEPHALIC - Eye Exam Eye Exam: EOMI, Normal appearance - ENT Exam ENT Exam: Mucous Membranes Moist - Respiratory Exam Respiratory Exam: Clear to Ausculation Bilateral, NORMAL BREATHING PATTERN - Cardiovascular Exam Cardiovascular Exam: RRR, +S1, +S2 - GI/Abdominal Exam GI & Abdominal Exam: Soft, Normal Bowel Sounds. absent: Tenderness - Extremities Exam Extremities Exam: fingers contracted bilateral hands - Neurological Exam Neurological Exam: Alert, Awake, Oriented x3 - Psychiatric Exam Psychiatric exam: Normal Affect, Normal Mood - Skin Skin Exam: Dry, Intact, Normal Color, Warm Assessment and Plan: Patient is a 67 year old male with ESRD on HD sent to ER by Pediatric Physician for low Hgb. Hematology was consulted for management of anemia. Anemia - GI consulted- appreciate recs - EGD planned for 02/07/2018 - H and H stable ~8 - bone marrow biopsy required- IR consulted- appreciate recommendations Patient case discussed with and plan approved by attending physician, Dr. Bermudez. Objective - Vital Signs/Intake and Output Vital Signs (last 24 hours): Temp Pulse Resp BP Pulse Ox 97.7 F 70 18 112/76 100 02/06/18 22:00 02/06/18 22:00 02/06/18 22:00 02/06/18 22:00 02/06/18 22:00 - Medications Medications: Current Medications Aspirin (Aspirin Chewable) 81 mg PO DAILY [facility] Last Admin: 02/06/18 09:52 Dose: 81 mg Atorvastatin Calcium (Lipitor) 40 mg PO DIN [facility] Last Admin: 02/06/18 17:02 Dose: 40 mg Carvedilol (Coreg) 3.125 mg PO BID [facility] Last Admin: 02/06/18 17:02 Dose: 3.125 mg Ergocalciferol (Drisdol 50,000 Intl Units Cap) 1 cap PO Q7D [facility] Last Admin: 02/04/18 21:25 Dose: 1 cap Ferrous Sulfate (Feosol) 324 mg PO BID [facility] Last Admin: 02/06/18 17:02 Dose: 324 mg Heparin Sodium (Porcine) (Heparin) 3,000 units IVP MWF PRN; Protocol PRN Reason: HEMODIALYSIS BOLUS Hydralazine HCl (Apresoline) 50 mg PO QID [facility] Last Admin: 02/06/18 21:06 Dose: Not Given Lactobacillus Acidophilus (Bacid Acidophilus) 1 cap PO BID [facility] Last Admin: 02/06/18 17:02 Dose: 1 cap Multi-Ingredient Cream (Hydrocerin Cream) 0 ea TOP DAILY [facility] Last Admin: 02/06/18 10:00 Dose: Not Given Pantoprazole Sodium (Protonix Inj) 40 mg IVP Q12 [facility] Last Admin: 02/06/18 21:04 Dose: 40 mg Tamsulosin HCl (Flomax) 0.4 mg PO DAILY [facility] Last Admin: 02/06/18 09:52 Dose: 0.4 mg Zinc Sulfate (Zinc Sulfate 220 Mg Cap) 220 mg PO DAILY [facility] Last Admin: 02/06/18 09:53 Dose: 220 mg - Labs Labs: 02/07/18 06:15 02/07/18 06:15 PT 15.6 SECONDS (9.4-12.5) H 02/07/18 06:15 INR 1.35 02/07/18 06:15 APTT 32.6 Seconds (25.1-36.5) 02/04/18 11:42
--- NOTE | 2018-02-07 07:52 | PN ---
DATE: 02/05/2018 SUBJECTIVE: Patient is a 67-year-old male. Patient was seen and examined at the bedside on 02/05/2018, looking comfortable. No nausea, vomiting, diarrhea. No hematuria, hematochezia. No swelling of the leg. No chest pain. No palpitation. No headache. No dizziness. Patient is getting blood transfusion. This is the third packed RBC unit. PHYSICAL EXAMINATION VITAL SIGNS: Temperature 97.6, pulse 71, blood pressure 106/86, respiratory rate 18. HEENT: Head: Normocephalic, atraumatic. Eyes: PERRLA. Extraocular muscles are intact. Conjunctivae clear. Nose patent. Mucous membranes moist. NECK: Supple. No carotid bruits. No JVD or thyromegaly. CHEST: Bilaterally symmetrical. HEART: S1 and S2 positive. LUNGS: Clear to auscultation. ABDOMEN: Soft. Bowel sounds present. No organomegaly. EXTREMITIES: No edema. No cyanosis. NEUROLOGICAL: Patient is awake, alert. Moving all 4 extremities. No focal deficits. MEDICATIONS: Aldactone, hydralazine, aspirin, Coreg, vitamin D, iron, Flomax, heparin, Lasix, Lipitor, Protonix, Zaroxolyn, zinc sulfate. LABORATORY DATA: White blood cells are 4.3, hemoglobin 6.8, hematocrit 20.7, and platelets 111,000. Sodium 139, potassium 4.6, BUN 53, creatinine 6.6, glucose 118, calcium is 8.2. ASSESSMENT AND PLAN: Mr. Loc Fuentes is a 67-year-old male with leukopenia; anemia; thrombocytopenia; renal insufficiency, on hemodialysis; hyperglycemia; hypocalcemia; hyperphosphatemia; stool occult positive; I ordered x3. Gastroenterology consult called with Dr. Wynn. Reeling Operator, Dr. Valenzuela, is on the case. Reviewed Dr. Young's notes. Patient had [id number] diabetes mellitus, hypertension, hypercholesterolemia, congestive heart failure, automatic implantable cardioverter-defibrillator placement in 01/2017, severe osteoarthritis, left arteriovenous graft, recurrent severe anemia. According to patient, his colonoscopy was done recently, but still I got Gastroenterology consult. We will follow up. Cherelle Fritz MD
--- NOTE | 2018-02-07 07:53 | PN ---
DATE: 02/06/2018 SUBJECTIVE: The patient was seen and examined at bedside on 02/06/2018. Looking comfortable. No fever. No chills. No hematochezia. No swelling of the legs. PHYSICAL EXAMINATION: VITAL SIGNS: Blood pressure 125/80, heart rate 84, respiratory rate 18, temperature 99. HEENT: Head normocephalic and atraumatic. Eyes PERRLA. Extraocular muscles intact. Conjunctivae clear. Nose patent. NECK: Supple. No carotid bruit, JVD, or thyromegaly. CHEST: Bilaterally symmetrical. HEART: S1 and S2 positive. LUNGS: Clear to auscultation. ABDOMEN: Soft. Bowel sounds present. No organomegaly. EXTREMITIES: No edema. No cyanosis. NEUROLOGICAL: The patient is awake and alert. Moving all four extremities. No focal deficits. LABORATORY DATA: White blood cell is 4, hemoglobin 6.8, hematocrit 20.7, platelets 111,000. Sodium 139, potassium 4.6, BUN 56, creatinine 6.6, glucose 93, AST 23, ALT 27. MEDICATIONS: Reviewed by me. ASSESSMENT AND PLAN: Ms. Loc Fuentes is a 67-year-old male with multiple medical problems, has severe anemia, recent anemia with patient receiving 2 units of packed RBC on 01/17/2018. Also receiving two units of blood yesterday, but still the hemoglobin is dropping. stool guick is positive. Hematology, Dr. Bermudez is on the case. Discussion done with Dr. Bermudez. The patient has colonoscopy done two weeks ago , consult with Dr. Wynn, GI, the patient need endoscopy to make sure the patient do not have arteriovenous malformation or severe gastritis. Non-insulin dependent diabetes mellitus, hypertension, severe joint deformities, ostearthritis especially in both hands. Endstage renal disease, on hemodialysis three times a week. The patient already has blood transfusion, will get more. Seen by Dr. Bermudez and discussion done with Dr. Bermudez. Need gastrointestinal procedure as outpatient. We will discontinue the Aldactone, discontinue Lasix, discontinue metolazone. Reviewed CAT scan of the abdomen and pelvis. It showed thick walled under distended urinary bladder. Recommended correlation with the urinary problem , a perihepatic and some ascites. Small pleuritic free fluid. Gastrointestinal and deep venous thrombosis prophylaxis. Repeat labs. We will follow up. Cherelle Fritz MD MTDD
--- NOTE | 2018-02-07 08:34 | CON ---
DATE: 02/05/2018 LOCATION: The patient is in room 566, bed 1. REASON FOR CONSULTATION: Severe anemia, background history of end-stage renal disease, on dialysis three times a week. HISTORY OF PRESENT ILLNESS: This is a 67-year-old white male, who is on outpatient hemodialysis, presented to the emergency room because of hemoglobin of 6.2 as an outpatient. The patient was recently transfused on 01/17/2018. The patient received 2 units of blood. Hemoglobin at that time, is now again down to 6.2. The patient had been receiving Venofer and Aranesp on dialysis. The patient is currently admitted for workup of anemia as well. He complains of difficulty with his vision in his left eye. He also has a nonhealing ulcer on the left foot. He denies any chest pain at this time. He has been followed by Podiatry for . The patient denies any pain. The patient does have severe joint deformities secondary to arthritis. He is being followed by podiatry service as well. PAST MEDICAL AND SURGICAL HISTORY: The patient has noninsulin-dependent diabetes mellitus, hypertension, hyperlipidemia, CHF, AICD placement in 01/2017, severe osteoarthritis, left AV graft, recently diagnosed severe anemia, etiology of which is unknown. FAMILY HISTORY: Significant for hypertension. SOCIAL HISTORY: Not significant history for smoking, alcohol use. No significant IV drug abuse. MEDICATIONS: Include spironolactone 25 mg b.i.d., hydralazine 50 mg four times a day, aspirin 81 mg daily, Coreg 3.125 mg b.i.d., Feosol 324 mg b.i.d., Flomax 0.4 mg daily, Lasix 80 mg p.o. b.i.d., Lipitor 40 daily, mg daily, metolazone 2.5 mg daily. The patient is on zinc sulfate as well. ALLERGIES: THE PATIENT HAS NO KNOWN ALLERGIES. REVIEW OF SYSTEMS: All 12 systems were reviewed and pertinent positives as mentioned in the HPI. PHYSICAL EXAMINATION: GENERAL: The patient is seen and examined at bed, elderly male in no acute distress. VITAL SIGNS: Stable, blood pressure 112/65, heart rate 77, respiratory rate 18, T-max is 98.4. HEENT: Head is normocephalic and atraumatic. Conjunctivae pale. Sclerae are anicteric. Pupils are equally reactive to light and accommodation. Examination of the oropharynx reveals no oropharyngeal lesion. Tongue is moist. No ulcerations are noted. NECK: Supple. There is no adenopathy. No jugular venous distention noted. LUNGS: Clear to percussion and auscultation. CARDIOVASCULAR: Examination of the heart reveals PMI to be in the fifth intercostal space. S1 and S2 are normal. No gallop or murmur is heard. ABDOMEN: Soft, nontender. Bowel sounds are present. No rebound, rigidity, or guarding is noted. EXTREMITIES: Patient has severe deformities of the small joints in the hands. The patient has no edema in the lower extremities. LABORATORY DATA: Revealed a white count of 6, hemoglobin 6.4, hematocrit 20, platelet count 131,000, MCV is 94.8. Sodium is 141, potassium is 5.4, chloride 100, CO2 of 22, BUN of 98, creatinine 9.8, glucose is 114, calcium 8.1, iron saturation is 26 with a ferritin of 430, AST is 32, ALT is 26, albumin is 3.8. ASSESSMENT, NOTES, AND PLAN: The patient has had recurrent severe anemia despite being on Aranesp and Venofer during the dialysis, also received 2 units of blood 2 weeks ago; polyclonal gammopathy; end-stage renal disease, on dialysis 3 times a week; noninsulin-dependent diabetes mellitus; hypertension, severe osteoarthritis; and congestive heart failure with cardiomyopathy. PLAN: The patient will be receiving 2 units of blood at this dialysis. for hemolysis and hemolytic workup will be requested along with plans for doing a bone marrow aspiration on Wednesday or Wednesday. Monitor blood sugar coverage and fingerstick blood sugars as needed, and the patient has been already evaluated by Podiatry. We will discuss with Dr. Young and Dr. Fritz, family medical doctor for this patient as well. After the blood work is done for tomorrow, we will have a better picture and we will plan doing a marrow to reassess if there is any hemopathology involved in the causation of the anemia. Thanking for allow me to participate in the management of this patient. Karli Bermudez MD
[2018-02-07] MEDS: Hydrocerin(120 gm) TOP SCH (10:00)
[2018-02-07] MEDS: Lactobacillus Acidophilus 500 MU Cap PO SCH ×2 (10:00→18:27)
--- NOTE | 2018-02-07 14:26 | CP.PCM.PN ---
Subjective - Date & Time of Evaluation Date of Evaluation: 02/07/18 Time of Evaluation: 14:24 - Subjective Subjective: Podiatry progress note for Dr. Contreras 67 y/o male patient was seen and evaluated at bedside for ulceration to the left foot. Patient is resting comfortably post dialysis treament and denies any acute overnight events. Patient denies fevers, chills, headache, dizziness, chest pain, shortness of breath, abdominal pain, nausea, vomiting, or diarrhea Objective - Vital Signs/Intake and Output Vital Signs (last 24 hours): Temp Pulse Resp BP Pulse Ox 98.2 F 71 20 111/72 100 02/07/18 06:00 02/07/18 06:00 02/07/18 06:00 02/07/18 06:00 02/07/18 06:00 - Medications Medications: Current Medications Aspirin (Aspirin Chewable) 81 mg PO DAILY [facility] Last Admin: 02/06/18 09:52 Dose: 81 mg Atorvastatin Calcium (Lipitor) 40 mg PO DIN [facility] Last Admin: 02/06/18 17:02 Dose: 40 mg Carvedilol (Coreg) 3.125 mg PO BID [facility] Last Admin: 02/07/18 13:16 Dose: 3.125 mg Ergocalciferol (Drisdol 50,000 Intl Units Cap) 1 cap PO Q7D [facility] Last Admin: 02/04/18 21:25 Dose: 1 cap Ferrous Sulfate (Feosol) 324 mg PO BID [facility] Last Admin: 02/06/18 17:02 Dose: 324 mg Heparin Sodium (Porcine) (Heparin) 3,000 units IVP MWF PRN; Protocol PRN Reason: HEMODIALYSIS BOLUS Last Admin: 02/07/18 08:41 Dose: 3,000 units Hydralazine HCl (Apresoline) 50 mg PO QID [facility] Last Admin: 02/06/18 21:06 Dose: Not Given Dextrose (Dextrose 5% In Water) 500 mls @ 40 mls/hr IV .[id number] [facility] Stop: 02/07/18 18:00 Last Admin: 02/07/18 13:23 Dose: 40 mls/hr Lactobacillus Acidophilus (Bacid Acidophilus) 1 cap PO BID [facility] Last Admin: 02/06/18 17:02 Dose: 1 cap Multi-Ingredient Cream (Hydrocerin Cream) 0 ea TOP DAILY [facility] Last Admin: 02/06/18 10:00 Dose: Not Given Pantoprazole Sodium (Protonix Inj) 40 mg IVP Q12 [facility] Last Admin: 02/07/18 13:15 Dose: 40 mg Tamsulosin HCl (Flomax) 0.4 mg PO DAILY [facility] Last Admin: 02/07/18 13:16 Dose: 0.4 mg Zinc Sulfate (Zinc Sulfate 220 Mg Cap) 220 mg PO DAILY [facility] Last Admin: 02/06/18 09:53 Dose: 220 mg - Labs Labs: 02/07/18 06:15 02/07/18 06:15 PT 15.6 SECONDS (9.4-12.5) H 02/07/18 06:15 INR 1.35 02/07/18 06:15 APTT 32.6 Seconds (25.1-36.5) 02/04/18 11:42 - Constitutional Appears: Well, Non-toxic, No Acute Distress - Head Exam Head Exam: ATRAUMATIC, NORMOCEPHALIC - Extremities Exam Additional comments: Lower Extremity Exam VASC: DP and PT faintly palpable, CFT less than 3 seconds X 10, no edema, TG warm to warm within normal limits NEURO: grossly intact DERM: 3 cm X 3 cm wound at the dorso-medial aspect of hte left 1st MTPJ, mixed fibro-granular base, minimal sanguinous drainage noted, minimal erythema left 1st mPTJ tanner-wound, no malodor, no probe to bone, no tunneling or tracking ORTHO: HAV deformities noted bilaterally, MSK 5/5 bilaterally, no posterior calf pain noted - Neurological Exam Neurological Exam: Alert, Awake, Oriented x3 - Psychiatric Exam Psychiatric exam: Normal Affect, Normal Mood Assessment and Plan - Assessment and Plan (Free Text) Assessment: 67 y/o male seen and evaluated for wound to the Left 1st MTPJ Plan: Patient seen and evaluated with Dr. Amos Chart, labs and vitals reviewed- afebrile, absent leukocytosis Wound Culture- E.coli, Coagulase negative Staph, Corneybacterium MATTHEW/PVR of B/L lower extremities: normal to the R side, mild-borderline PAD on the left Pending Left foot X-rays Wound cleansed with saline, and dressed with xeroform, gauze, kerlix applied Podiatry will continue to follow patient while in house
--- NOTE | 2018-02-07 15:40 | RAD ---
Date of service: 02/07/2018 PROCEDURE: Left Foot Radiographs. HISTORY: left foot wound COMPARISON: None. FINDINGS: BONES: There are no bony destructive changes to suggest osteomyelitis. Previous amputation tip of 1st toe JOINTS: Degenerative changes seen in the 1st MTP joint SOFT TISSUES: Normal. OTHER FINDINGS: None. IMPRESSION: No acute findings
[2018-02-07] MEDS ORDERED: Propofol 10 mg/ml Inj (20 ML) ONE (16:21)
[2018-02-07] MEDS ORDERED: Etomidate 20 mg/10ml Inj IV ONE (16:27)
[2018-02-07] MEDS ORDERED: Sodium Chloride 0.9% 1,000 ML IV SCH (17:00)
--- NOTE | 2018-02-07 17:53 | CP.PCM.PCO ---
Physician Communication Note - Physician Communication Note Physician Communication Note: Ok d/c from GI standpoint.F/u with established GI DrBhargavi for capsule endoscopy
--- NOTE | 2018-02-07 18:19 | PN ---
DATE: 02/07/2018 SUBJECTIVE: The patient is seen sitting in bed. He is awake, he is alert. He reports being tired. He had dialysis earlier today. He is scheduled for an endoscopy this afternoon. PHYSICAL EXAMINATION: GENERAL: Elderly male sitting in bed. VITAL SIGNS: Blood pressure 111/72, heart rate 71, respiratory rate 20, temperature 98.2. HEENT: Normocephalic, atraumatic, positive pallor. NECK: Supple, no JVD. LUNGS: Bilateral equal air entry, bilaterally equal expansion, no rales. CARDIAC: S1, S2, regular and rhythm, no murmur, no rub. ABDOMEN: Soft, nondistended, nontender, bowel sounds present. EXTREMITIES: No lower extremity edema. LABORATORY DATA: WBC 4.7, hemoglobin 8, hematocrit 25, platelets 105. Sodium 139, potassium 5.7, chloride 104, CO2 of 22, BUN 103, creatinine 10.3, glucose 90, calcium 8.1. Occult blood positive. Wound culture from left foot is E. coli. CT of the abdomen and pelvis shows hepatomegaly, heterogenous hepatic parenchyma and cholelithiasis. ASSESSMENT AND PLAN: 1. Severe anemia, recurrent anemia, status post two units of packed red blood cells on 01/17/2018; once again, status post four units of packed red blood cells on this admission. 2. Vrz-ekcmogf-irczlpoin diabetes mellitus. 3. Hypertension. 4. End-stage renal disease. 5. Coronary artery disease. PLAN: 1. Stable dialysis today. 2. For endoscopy today. 3. Case discussed with Dr. Bermudez, bone marrow . 4. D5W at 40 mL per hour until endoscopy. 5. Follow up by . Grecia Young MD
--- NOTE | 2018-02-07 20:26 | US ---
PROCEDURE: Lower extremity MATTHEW exam HISTORY: Peripheral vascular disease with pain and ulceration. Diabetes. PHYSICIAN(S): Kamari Mohan MD. FINDINGS: The resting MATTHEW's are normal: right, 1.15and left, 0.93 The brachial systolic pressures are symmetric. The high thigh pressures and waveforms are relatively normal. The calf PVR waveforms augment normally. No significant gradients are noted across the thighs. The right ankle and metatarsal waveforms are relatively normal and symmetric. There is a 35 mm gradient across the left knee. This could represent subtle left popliteal, trifurcation, and/or tibial disease. IMPRESSION: 1. Relatively normal MATTHEW and PVR examination at rest. 2. Possible subtle left popliteal, trifurcation and tibial occlusive disease
--- NOTE | 2018-02-07 20:28 | US ---
PROCEDURE: Bilateral carotid artery duplex ultrasound HISTORY: Carotid stenosis PHYSICIAN(S): Kamari Mohan MD. TECHNIQUE: Duplex sonography and color-flow Doppler were used to evaluate the carotid bifurcations and limited segments of the vertebral arteries bilaterally. FINDINGS: There is mild diffuse smooth heterogeneous plaque noted at the carotid bifurcations bilaterally. The peak systolic velocity in the proximal right internal carotid artery is 69 cm/sec. This corresponds to a 20 to 39% proximal right ICA stenosis. Normal systolic velocities are noted in the proximal right external carotid artery. There is antegrade flow in the right vertebral artery. The peak systolic velocity in the proximal left internal carotid artery is 83 cm/sec. This corresponds to a 20 to 39% proximal left ICA stenosis. Normal systolic velocities are noted in the proximal left external carotid artery. There is antegrade flow in the left vertebral artery. IMPRESSION: 1. Bilateral 20-39% proximal ICA stenoses. 2. Antegrade flow in both vertebral arteries.
[2018-02-08 05:03] LABS: ALBUMIN (PEP) 3.2 g/dL (3.8-4.8); ALPHA-1-GLOBULIN (PEP) 0.4 g/dL (0.2-0.3)
--- NOTE | 2018-02-08 06:33 | PN ---
DATE: 02/07/2018 SUBJECTIVE: The patient is a 67-year-old male. The patient was seen and examined on the bedside, looking comfortable. Had dialysis today. Went for endoscopy. No fever, no chills. No hematuria. No hematochezia. PHYSICAL EXAMINATION VITAL SIGNS: Blood pressure 111/72, heart rate 71, respiratory rate 20, temperature 98.2. HEENT: Head, normocephalic, atraumatic. Eyes, PERRLA. Extraocular muscles are intact. Conjunctivae clear. Nose patent. NECK: Supple. No carotid bruits. No JVD or thyromegaly. CHEST: Bilaterally symmetrical. HEART: S1, S2 positive. LUNGS: Clear to auscultation. ABDOMEN: Soft. Bowel sounds present. No organomegaly. EXTREMITIES: No edema. No cyanosis. NEUROLOGIC: The patient is awake, alert. Moving all four extremities. No focal deficits. Follows simple commands. LABORATORY DATA: White blood cell 4.7, hemoglobin 8, hematocrit 25, platelets 105. Sodium 139, potassium 5.7, BUN 103, creatinine 10.3, glucose 90. Calcium 8.1. Left foot culture shows E. coli. CAT scan of the abdomen is reviewed. MEDICATIONS: Hydralazine, aspirin, lactobacillus, Coreg, tamsulosin, heparin, Lipitor, meropenem, Protonix, zinc. ASSESSMENT AND PLAN: Loc Rodriguez is a 67-year-old male with anemia status post couple of blood transfusion, thrombocytopenia, hyperkalemia, renal insufficiency getting hemodialysis, diabetes mellitus, hypocalcemia, stool occult is positive, PSA is high 6.4. Foot x-ray is done. Seen by clay pigeon setter Dr. Contreras. Dr. Young is the patient's flavor maker. Ezj-sslaarg-mbezznaiv diabetes mellitus, hypertension, coronary artery disease. Dr. Young had discussion done with Dr. Bermudez, plan to do bone marrow. Got intravenous fluid until endoscopy. Discussion done with the patient. All questions answered. Went for esophageal gastroduodenoscopy by Dr. Wynn. The patient has rule out celiac disease, gastritis, also papilloma. According Gastroenterology, need capsule endoscopy. Meanwhile continue antibiotics. Repeat labs. Will followup. Cherelle Fritz MD [facility] # [phone] CO[facility]
--- NOTE | 2018-02-08 07:29 | CP.PCM.PN ---
Subjective - Date & Time of Evaluation Date of Evaluation: 02/08/18 Time of Evaluation: 09:45 - Subjective Subjective: Ck Doty-Internal Medicine Resident- Hematology Oncology Progress Note Subjective: Patient seen and examined. No acute events overnight. Offers no new complaints at this time. Denies fever, chills, chest pain, SOB. 12 point ROS negative except as indicated in HPI Physical Examination: - Constitutional Appears: Non-toxic, No Acute Distress - Head Exam Head Exam: ATRAUMATIC, NORMAL INSPECTION, NORMOCEPHALIC - Eye Exam Eye Exam: EOMI, Normal appearance - ENT Exam ENT Exam: Mucous Membranes Moist - Respiratory Exam Respiratory Exam: Clear to Ausculation Bilateral, NORMAL BREATHING PATTERN - Cardiovascular Exam Cardiovascular Exam: RRR, +S1, +S2 - GI/Abdominal Exam GI & Abdominal Exam: Soft, Normal Bowel Sounds. absent: Tenderness - Extremities Exam Extremities Exam: fingers contracted bilateral hands - Neurological Exam Neurological Exam: Alert, Awake, Oriented x3 - Psychiatric Exam Psychiatric exam: Normal Affect, Normal Mood - Skin Skin Exam: Dry, Intact, Normal Color, Warm Assessment and Plan: Patient is a 67 year old male with ESRD on HD sent to ER by [employer] for low Hgb. Hematology was consulted for management of anemia. Anemia - GI consulted- appreciate recs - EGD- esophageal polyp found, gastritis - H and H stable ~8 04/09/2017, rec H and H for 02/08/2018 - bone marrow biopsy required- IR consulted- appreciate recommendations, may be able to complete in outpatient setting Patient case discussed with and plan approved by attending physician, Dr. Bermudez. Objective - Vital Signs/Intake and Output Vital Signs (last 24 hours): Temp Pulse Resp BP Pulse Ox 98.2 F 71 14 107/71 98 02/07/18 17:28 02/07/18 18:32 02/07/18 17:28 02/07/18 22:15 02/07/18 17:28 Intake and Output: 02/08/18 02/08/18 06:59 18:59 Intake Total 120 Balance 120 - Medications Medications: Current Medications Aspirin (Aspirin Chewable) 81 mg PO DAILY [facility] Last Admin: 02/07/18 10:00 Dose: Not Given Atorvastatin Calcium (Lipitor) 40 mg PO DIN [facility] Last Admin: 02/07/18 18:30 Dose: 40 mg Carvedilol (Coreg) 3.125 mg PO BID [facility] Last Admin: 02/07/18 18:28 Dose: 3.125 mg Ergocalciferol (Drisdol 50,000 Intl Units Cap) 1 cap PO Q7D [facility] Last Admin: 02/04/18 21:25 Dose: 1 cap Ferrous Sulfate (Feosol) 324 mg PO BID [facility] Last Admin: 02/07/18 18:29 Dose: 324 mg Heparin Sodium (Porcine) (Heparin) 3,000 units IVP MWF PRN; Protocol PRN Reason: HEMODIALYSIS BOLUS Last Admin: 02/07/18 08:41 Dose: 3,000 units Hydralazine HCl (Apresoline) 50 mg PO QID [facility] Last Admin: 02/07/18 22:15 Dose: Not Given Meropenem 250 mg/ Sodium (Chloride) 100 mls @ 100 mls/hr IVPB Q24H [facility]; Protocol Stop: 02/14/18 21:16 Last Admin: 02/07/18 22:15 Dose: 100 mls/hr Lactobacillus Acidophilus (Bacid Acidophilus) 1 cap PO BID [facility] Last Admin: 02/07/18 18:27 Dose: 1 cap Multi-Ingredient Cream (Hydrocerin Cream) 0 ea TOP DAILY [facility] Last Admin: 02/07/18 10:00 Dose: Not Given Pantoprazole Sodium (Protonix Inj) 40 mg IVP Q12 [facility] Last Admin: 02/07/18 22:15 Dose: 40 mg Tamsulosin HCl (Flomax) 0.4 mg PO DAILY [facility] Last Admin: 02/07/18 13:16 Dose: 0.4 mg Zinc Sulfate (Zinc Sulfate 220 Mg Cap) 220 mg PO DAILY [facility] Last Admin: 02/07/18 18:30 Dose: 220 mg - Labs Labs: 02/07/18 06:15 02/07/18 15:46 PT 15.6 SECONDS (9.4-12.5) H 02/07/18 06:15 INR 1.35 02/07/18 06:15 APTT 32.6 Seconds (25.1-36.5) 02/04/18 11:42
[2018-02-08 07:41] LABS: ALBUMIN (PEP) 3.1 g/dL (3.8-4.8); ALPHA-1-GLOBULIN (PEP) 0.3 g/dL (0.2-0.3)
[2018-02-08 08:52] VITALS: BP 113/74; RESP 20; TEMP 98.3; O2SAT 99
[2018-02-08] MEDS: Lactobacillus Acidophilus 500 MU Cap PO SCH (09:17)
[2018-02-08 09:28] VITALS: PULSE 70
--- NOTE | 2018-02-08 13:24 | CP.PCM.PCO ---
Addendum Addendum: [facility] [place] Doc Note I was paged regarding patient wanting to sign out AMA. The patient states that he was worked up and treated and there's nothing more to be done that he can't do as an outpatient. He is a 67 year old male who presented with symptomatic anemia and found to have ESBL in left foot ulcer. ID had patient on meropenem but was d/c because of probably colonizer. Heme is consulted regarding the anemia and are recommending bone marrow biopsy. ID was contacted and recommended no abx on discharge. Dr. Bermudez was present at time, and discussed with the patient outpatient follow-up for a bone marrow biopsy on a day when he doesn't have dialysis. Dr. Fritz was also contacted and recommended next day follow-up in her office. The patient was instructed on benefits/risks of AMA as outlined on form. He understands and still wishes to leave. He was signed out as witness by his nurse. He did not allow me to examine him, and he walked off the unit to elevator with walker with steady gait.
--- NOTE | 2018-02-08 14:45 | CP.PCM.PCO ---
<Charis Salguero - Last Filed: 02/08/18 14:43> Physician Communication Note - Physician Communication Note Physician Communication Note: Patient signed out AMA prior to dressing change, nursing changed dressing Progress Note - Review of Symptoms Events since last encounter: patient dressing was changed by nursing measuring 2.5 cm X 2.5 cm. Xeroform, DSD dressing was applied <Kurtis Amos - Last Filed: 02/08/18 15:13> Attending/Attestation - Attestation I have personally seen and examined this patient.: Yes I have fully participated in the care of the patient.: Yes I have reviewed all pertinent clinical information: Yes
--- NOTE | 2018-02-08 22:32 | CON ---
DATE: 02/08/2018 LOCATION: The patient is seen in room 569, bed 2. The patient is seen early this morning. CHIEF COMPLAINT: ESBL from his left foot x1-day duration. HISTORY OF PRESENT ILLNESS: This is a 67-year-old male with past medical history significant for diabetes mellitus for 20 years, coronary artery disease, congestive heart failure, hypertension, history of Serratia foot infection, history of renal failure and on hemodialysis, and history of arthritis who was admitted with a diagnosis of found to have anemia and was transfused. Left foot culture was done. It revealed three different organisms, one of which was ESBL E. coli. Infectious disease consultation requested. REVIEW OF SYSTEMS: There is no fever. No chills. No nausea. No vomiting. No abdominal pain, diarrhea or constipation. No bright red blood per rectum. No melena. A 12-point review systems is performed. PAST MEDICAL HISTORY: Significant for diabetes mellitus, coronary artery disease, congestive heart failure, hypertension, Serratia foot infection, chronic renal failure, and arthritis. PAST SURGICAL HISTORY: Significant for a left foot surgery and defibrillator two years ago. ALLERGIES: THE PATIENT HAS NO KNOWN ALLERGIES. MEDICATIONS: Medications at home reveal the patient to be on Apresoline, carvedilol, atorvastatin. PHYSICAL EXAMINATION: GENERAL: The patient is in bed, in no acute distress. VITAL SIGNS: With a temperature of 98, blood pressure is 113/70, respiratory rate of 20, heart rate of 71. HEENT: Unremarkable. NECK: Supple. LUNGS: Decreased breath sounds. HEART: Normal S1 and S2. ABDOMEN: Soft, nontender. No organomegaly, no rebound, no guarding, no masses. EXTREMITIES: Examination of foot reveals an ulcer on top of his left foot. It is clean, well demarcated ulcer. There is no discharge, not warm to touch. It is not infected. It is a clean open ulcer. Pulses are intact. LABORATORY DATA: Laboratory examination reveals a white count of 4.7, hemoglobin of 8, platelets of 105. Coagulation is noted. Chemistries are reviewed. Creatinine is 10.3. Stool for occult blood is positive. Serology: Hepatitis B surface antibody is positive. Surface antigen is negative. Microbiology reveals ESBL E. coli, coag-negative Staph and Corynebacterium in left foot culture. CAT scan of the abdomen and pelvis is noted. The x-ray of the foot shows no osteomyelitis. ASSESSMENT AND PLAN: This is a 67-year-old male with diabetes mellitus for 20 years, coronary artery disease, congestive heart failure, hypertension, Serratia in the foot, chronic renal failure and arthritis with a left foot ulcer with Extended-spectrum beta-lactamase, Staphylococcus coagulase-negative and Corynebacterium, most probably a colonizer, not a pathogen. The patient had a normal ankle-brachial index three days ago. We will discontinue the meropenem. No antibiotics needed at this time. Local wound care. We will follow with you. Charlie Taylor MD
--- NOTE | 2018-02-09 05:05 | DS ---
The patient was admitted to [facility] on 02/04/2018, left against medical advice on 02/08/2018. I am doing discharge summary for 02/08/2018. CHIEF COMPLAINT: Abnormal labs, fatigue and tired. HISTORY OF PRESENT ILLNESS: Mr. Loc Fuentes is a 67-year-old male with past medical history of arthritis; dialysis; renal failure, on hemodialysis three times a week; defibrillator; hypertension; osteomyelitis, came to the emergency department after being dialyzed and by the order of Dr. Young because hemoglobin is low, the patient was transferred to [facility] Emergency Room for blood transfusion; a couple of blood transfusion was given, but hemoglobin was not going up. Called consult with Dr. Wynn. He did upper endoscopy. Consulted with Dr. Bermudez. He is planning to do biopsy. Upper endoscopy showed rule out celiac disease, gastritis and esophageal papilloma. The patient improved, has an ulcer on the foot, called podiatry consult, dressing was given. Plan was to give antibiotics. Need physical therapy, but the patient decided to go home against medical advice. Urged to follow up with primary care physician, Learning Support Resource Room Teacher, Oncologist, Telephone Mechanic, and Director Of Therapy Services. He promised to come in primary care physician's office to get prescriptions. PAST MEDICAL HISTORY: History of left lower lobe pneumonia, hypertension, diabetes mellitus type 2, grade 2 debridement. FAMILY HISTORY: Father and mother, noncontributory. HABITS: No smoking. No drug. No ethanol. ALLERGIES: THE PATIENT IS NOT ALLERGIC WITH ANY MEDICATIONS. REVIEW OF SYSTEMS: The patient was seen and examined at the bedside, looking comfortable. Early in the morning, no nausea, vomiting, diarrhea. No hematuria or hematochezia. No swelling of the legs. No chest pain. No palpitation. No headache. No dizziness. PHYSICAL EXAMINATION: VITAL SIGNS: Temperature 98.3, pulse 70, blood pressure 113/74, and respiratory rate 20. HEENT: Head, normocephalic and atraumatic. Eyes, PERRLA. Extraocular muscles are intact. Conjunctivae clear. Nose patent. Mucous membranes moist. NECK: Supple. No carotid bruits. No JVD or thyromegaly. CHEST: Bilaterally symmetrical. HEART: S1, S2 positive. LUNGS: Clear to auscultation. ABDOMEN: Soft. Bowel sounds present. No organomegaly. EXTREMITIES: No edema. No cyanosis. NEUROLOGIC: The patient is awake and alert. Moving all four extremities. No focal deficit. LABORATORY DATA: White blood cell 4.7, hemoglobin 8.0, hematocrit 24.9, platelets 105,000. Potassium 4.1, glucose 151, sodium 139, BUN 103, creatinine 10.3. Calcium 8.1. ASSESSMENT AND PLAN: Mr. Loc Fuentes is a 67-year-old male with severe anemia, status post a couple of blood transfusion; hyperkalemia, repeat is normal at 4.1; renal insufficiency, getting dialysis three days a week; hypocalcemia. Stool occult was positive. Gastroenterology consult called. They did endoscopy. Hepatitis B surface antibody is positive. The patient was getting treatment by Learning Support Resource Room Teacher, Psychological Anthropologist. Infectious Disease was on the case. Plan was to continue treatment, but the patient decided to go against medical advice. He promised he will follow with the primary care physician, Learning Support Resource Room Teacher, Telephone Mechanic, and Infectious Disease. We will follow up as outpatient. Cherelle Fritz MD
== END 2018-02-08 13:55 | disposition left against medical advice (07) | DRG 811 ==
LOC: ED 11:04 → ERH 12:41 → 5RNO 14:22
PROVIDERS: ADMIT Internal Medicine; ATTEND Internal Medicine
PROC: 30233N1 Transfusion of Nonautologous Red Blood Cells into Peripheral Vein, Percutaneous Approach (ICD-10-PCS; 2018-02-04)
PROC: 0DB68ZX Excision of Stomach, Via Natural or Artificial Opening Endoscopic, Diagnostic (ICD-10-PCS; 2018-02-07)
PROC: 0DB58ZX Excision of Esophagus, Via Natural or Artificial Opening Endoscopic, Diagnostic (ICD-10-PCS; 2018-02-07)
PROC: 0DB98ZX Excision of Duodenum, Via Natural or Artificial Opening Endoscopic, Diagnostic (ICD-10-PCS; principal; 2018-02-07 15:00)
DX: D63.1 Anemia in chronic kidney disease (principal); N18.6 End stage renal disease; I13.2 Hypertensive heart and chronic kidney disease with heart failure and with stage 5 chronic kidney disease, or end stage renal disease; I42.9 Cardiomyopathy, unspecified; R18.8 Other ascites; D89.0 Polyclonal hypergammaglobulinemia; E11.22 Type 2 diabetes mellitus with diabetic chronic kidney disease; E11.621 Type 2 diabetes mellitus with foot ulcer; E11.65 Type 2 diabetes mellitus with hyperglycemia; E78.00 Pure hypercholesterolemia, unspecified; E78.5 Hyperlipidemia, unspecified; E83.39 Other disorders of phosphorus metabolism; E83.51 Hypocalcemia; E87.5 Hyperkalemia; I25.10 Atherosclerotic heart disease of native coronary artery without angina pectoris; I50.9 Heart failure, unspecified; L97.529 Non-pressure chronic ulcer of other part of left foot with unspecified severity; M19.90 Unspecified osteoarthritis, unspecified site; K29.50 Unspecified chronic gastritis without bleeding; Z87.891 Personal history of nicotine dependence; Z95.810 Presence of automatic (implantable) cardiac defibrillator; Z99.2 Dependence on renal dialysis; B96.20 Unspecified Escherichia coli [E. coli] as the cause of diseases classified elsewhere; Z16.12 Extended spectrum beta lactamase (ESBL) resistance

== ENCOUNTER 2018-02-16 12:41 | Inpatient (IN) | payer OTHER, MEDICARE ==
[2018-02-16 12:56] VITALS: BMI 27.8
--- NOTE | 2018-02-16 13:05 | ED PDOC ---
Arrival/HPI - General Chief Complaint: Abnormal Labs Time Seen by Provider: 02/16/18 12:52 Historian: Patient - History of Present Illness Narrative History of Present Illness (Text): 02/16/18 13:03 67 year old male, whose past medical history includes arthritis, dialysis (M,W,F), defibrillator, HTN, and DM presents to the emergency department complaining of generalized weakness, since earlier today. Patients state he has been feeling lightheaded. Of note, the patient was supposed to go to his dialysis center earlier today, but he was notified by them that his hemoglobin level was low. Patient was previously seen in the emergency department 2 weeks ago for similar complaints. He denies fevers, chills, headache, chest pain, shortness of breath, dyspnea on exertion, cough, abdominal pain, nausea, vomiting, diarrhea, back pain, neck pain, or any other complaint. PMD: Dr. Gill Alvarado Control Clerk Repairs: Dr. Young Time/Duration: Prior to Arrival Symptom Onset: Gradual Symptom Course: Unchanged Activities at Onset: Light Context: Home Past Medical History - Provider Review Nursing Documentation Reviewed: Yes - Infectious Disease Hx of Infectious Diseases: None - Cardiac Hx Congestive Heart Failure: Yes (B/L LL +3 edema) Hx Hypertension: Yes - Renal Hx Dialysis: Yes Type of Dialysis Access: L FA AV shunt Date of Last Dialysis Treatment: 02/14/18 Hx Renal Failure: Yes - Endocrine/Metabolic Hx Diabetes Mellitus Type 2: Yes - Hematological/Oncological Hx Blood Transfusions: Yes Hx Blood Transfusion Reaction: No - Musculoskeletal/Rheumatological Hx Falls: No - Psychiatric Hx Substance Use: No - Surgical History Other/Comment: L AV shunt - Anesthesia Hx Anesthesia: Yes Hx Anesthesia Reactions: No Hx Malignant Hyperthermia: No Family/Social History - Physician Review Nursing Documentation Reviewed: Yes Family/Social History: No Known Family HX Smoking Status: Never Smoked Hx Alcohol Use: No Hx Substance Use: No Allergies/Home Meds Allergies/Adverse Reactions: Allergies No Known Allergies Allergy (Verified 02/16/18 16:42) Home Medications: Home Meds Medication Instructions Recorded Confirmed RX: Ferrous Sulfate [Feosol] 325 mg PO TID 02/06/18 02/16/18 RX: Tamsulosin [Flomax] 0.4 mg PO DAILY 02/06/18 02/16/18 RX: hydrALAZINE [Apresoline] 10 mg PO TID 02/06/18 02/16/18 Amiodarone HCl 1 tab DAILY 02/16/18 02/16/18 Docusate Sodium [Uriostegui' Stool 100 mg PO BID 02/16/18 02/16/18 Softener Laxative] Ferrous Sulfate [Ferosul] 325 mg PO TID 02/16/18 02/16/18 Lisinopril [Zestril] 5 mg PO DAILY 02/16/18 02/16/18 RX: Carvedilol [Coreg] 6.25 mg PO BID 02/16/18 02/16/18 Sevelamer Carbonate [Renvela] 1 tab BID 02/16/18 02/16/18 Vit B Cplx C No.13/Folic AC/D3 1 each PO DAILY 02/16/18 02/16/18 [Nephrocaps Qt Tablet] Review of Systems - Physician Review All systems were reviewed & negative as marked: Yes - Review of Systems Constitutional: absent: Fevers Cardiovascular: absent: Chest Pain Physical Exam - Physical Exam Narrative Physical Exam (Text): 02/16/18 13:04 Constitutional: No acute distress. Head: Normocephalic. Atraumatic. Eyes: PERRL. ENT: Moist mucous membranes. Neck: Supple. Cardiovascular: Regular rate. Chest: No tenderness. Respiratory: Clear to auscultation bilaterally. GI: Soft. Nontender. Nondistended. Back: No CVA tenderness. Musculoskeletal: No tenderness or swelling of extremities. Skin: No rash. Neurologic: Alert, no focal deficit. Vital Signs Temp Pulse Resp BP Pulse Ox 02/16/18 13:00 98.2 F 72 18 123/70 97 Medical Decision Making ED Course and Treatment: 02/16/18 13:04 Impression: 67 year old male who presents to the emergency department complaining of generalized weakness. Differential Diagnosis included but are not limited to: Plan: -- BBK -- EKG -- Labs -- Chest X-ray -- Reassess and disposition Prior Visits: Notes and results from previous visits were reviewed. Progress Notes: 02/16/18 13:17 EKG reviewed, shows: NSR 65bpm, no ST or T wave elevations. 02/16/18 13:54 Chest X-ray reviewed, shows: IMPRESSION: No active disease. Dr. Young states will arrange dialysis. Dr. Thacker accepts patient to medical service. - Lab Interpretations I have reviewed the lab results: Yes - EKG Interpretation Interpreted by ED Physician: Yes Type: 12 lead EKG - Scribe Statement The provider has reviewed the documentation as recorded by the Edieibe Mague Brito Provider Scribe Attestation: All medical record entries made by the Scribe were at my direction and personally dictated by me. I have reviewed the chart and agree that the record accurately reflects my personal performance of the history, physical exam, medical decision making, and the department course for this patient. I have also personally directed, reviewed, and agree with the discharge instructions and disposition. Disposition/Present on Arrival - Present on Arrival Any Indicators Present on Arrival: No History of DVT/PE: No History of Uncontrolled Diabetes: No Urinary Catheter: No History of Decub. Ulcer: No History Surgical Site Infection Following: None - Disposition Have Diagnosis and Disposition been Completed?: Yes Diagnosis: End stage chronic kidney disease, Symptomatic anemia Disposition: HOSPITALIZED Disposition Time: 13:50 Patient Plan: Admission Condition: FAIR
--- NOTE | 2018-02-16 13:50 | RAD ---
Date of service: 02/16/2018 HISTORY: general weakness COMPARISON: 11/08/2016 FINDINGS: LUNGS: No active pulmonary disease. PLEURA: No significant pleural effusion identified, no pneumothorax apparent. CARDIOVASCULAR: No aortic atherosclerotic calcification present. Moderate cardiomegaly. Single lead pacemaker no pulmonary vascular congestion. OSSEOUS STRUCTURES: No significant abnormalities. VISUALIZED UPPER ABDOMEN: Normal. OTHER FINDINGS: None. IMPRESSION: No active disease.
[2018-02-16 14:59] LABS: BASO # 0.02 K/mm3 (0.0-2.0); BASO % 0.4 % (0.0-3.0); EOS # 0.3 (0.0-0.7); EOS % 5.3 % (1.5-5.0); GRAN # 3.45 (1.4-6.5); GRAN % 73.1 % (50.0-68.0); LYMPH # 0.8 (1.2-3.4); LYMPH % 17.2 % (22.0-35.0); MEAN CELL VOLUME 93.6 fl (80.0-105.0); MEAN CORPUSCULAR HEMOGLOBIN 30.6 pg (25.0-35.0); MEAN CORPUSCULAR HGB CONC 32.7 g/dl (31.0-37.0); MEAN PLATELET VOLUME 9.8 fl (7.0-11.0); MONO # 0.2 (0.1-0.6); RBC 2.19 10^6/uL (3.5-6.1); RED CELL DISTRIBUTION WIDTH 17.2 % (11.5-14.5); WHITE BLOOD COUNT 4.7 10^3/uL (4.5-11.0)
[2018-02-16 15:06] LABS: HEMOGLOBIN 6.7 g/dL (14.0-18.0)
[2018-02-16 15:39] LABS: ALB/GLOB RATIO 0.9 (1.1-1.8); ALBUMIN 3.7 g/dL (3.0-4.8); CALCIUM 8.1 mg/dL (8.4-10.5)
--- NOTE | 2018-02-16 17:08 | CP.PCM.PN ---
Objective - Vital Signs/Intake and Output Vital Signs (last 24 hours): Temp Pulse Resp BP Pulse Ox 98.8 F 61 20 109/71 97 02/16/18 16:46 02/16/18 16:46 02/16/18 16:46 02/16/18 16:46 02/16/18 15:00 Intake and Output: 02/16/18 02/16/18 06:59 18:59 Intake Total 0 Balance 0 - Labs Labs: 02/16/18 14:45 02/16/18 14:45
--- NOTE | 2018-02-16 17:32 | CP.PCM.HP ---
<Anca Denny L - Last Filed: 02/16/18 21:06> History of Present Illness - History of Present Illness History of Present Illness: Resident History & Physical for Dr. Thacker Patient is a 67 year male with past medical history HTN, T2DM, ESRD on HD, CHF, arthritis who presented to ED for evaluation of anemia. Patient states he was supposed to go to dialysis today. However he was told that he had low hemoglobin on recent labwork and was directed to go to the ED. He states he is asymptomatic at this time. He states that he has received packed red blood cells in the past which he has tolerated with no adverse reactions. Denies fevers, chills, headache, dizziness, nausea, vomiting, chest pain, shortness of breath, abdominal pain, diarrhea, constipation. PMH: HTN, T2DM, ESRD on HD, CHF, CHF, arthritis PSH: defibrillator, left foot I&D of abscess SHx: has 2 alcoholic drinks/month, occasional cigar, denies illicit drug use FHx: mother (T2DM) Allergies: NKDA PMD: Dr. 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 Young 12 point ROS was negative as stated in HPI Present on Admission - Present on Admission Any Indicators Present on Admission: No Review of Systems - Review of Systems All systems: reviewed and no additional remarkable complaints except (as stated in HPI) Past Patient History - Infectious Disease Hx of Infectious Diseases: None - Past Social History Smoking Status: Never Smoked - CARDIAC Hx Congestive Heart Failure: Yes (B/L LL +3 edema) Hx Hypertension: Yes - RENAL Hx Dialysis: Yes Type of Dialysis Access: L FA AV shunt Date of Last Dialysis Treatment: 02/14/18 Hx Renal Failure: Yes - ENDOCRINE/METABOLIC Hx Diabetes Mellitus Type 2: Yes - HEMATOLOGICAL/ONCOLOGICAL Hx Blood Transfusions: Yes Hx Blood Transfusion Reaction: No - MUSCULOSKELETAL/RHEUMATOLOGICAL Hx Falls: No - PSYCHIATRIC Hx Substance Use: No - SURGICAL HISTORY Other/Comment: L AV shunt - ANESTHESIA Hx Anesthesia: Yes Hx Anesthesia Reactions: No Hx Malignant Hyperthermia: No Meds Allergies/Adverse Reactions: Allergies Allergy/AdvReac Type Severity Reaction Status Date / Time No Known Allergies Allergy Verified 02/16/18 16:42 Physical Exam - Constitutional Appears: Non-toxic, No Acute Distress - Head Exam Head Exam: ATRAUMATIC, NORMOCEPHALIC - Eye Exam Eye Exam: EOMI, Normal appearance, PERRL - ENT Exam ENT Exam: Mucous Membranes Moist, Normal Exam - Neck Exam Neck exam: Positive for: Normal Inspection. Negative for: Lymphadenopathy, Tenderness, Thyromegaly - Respiratory Exam Respiratory Exam: Clear to Auscultation Bilateral, NORMAL BREATHING PATTERN. absent: Accessory Muscle Use, Rales, Rhonchi, Wheezes, Respiratory Distress, Stridor - Cardiovascular Exam Cardiovascular Exam: REGULAR RHYTHM, +S1, +S2. absent: Systolic Murmur - GI/Abdominal Exam GI & Abdominal Exam: Normal Bowel Sounds, Soft. absent: Distended, Firm, Mass, Rebound, Rigid, Tenderness - Extremities Exam Extremities exam: Positive for: normal capillary refill, pedal pulses present. Negative for: pedal edema - Neurological Exam Neurological exam: Alert, CN II-XII Intact, Oriented x3 - Psychiatric Exam Psychiatric exam: Normal Affect, Normal Mood - Skin Skin Exam: Dry, Normal Color, Warm Results - Vital Signs Recent Vital Signs: Last Vital Signs Temp 97.8 F 02/16/18 17:01 Pulse 63 02/16/18 17:01 Resp 18 02/16/18 17:01 BP 113/71 02/16/18 17:01 Pulse Ox 97 02/16/18 15:00 - Labs Result Diagrams: 02/16/18 14:45 02/16/18 14:45 Labs: Laboratory Results - last 24 hr 02/16/18 02/16/18 02/16/18 14:30 14:45 14:45 WBC 4.7 RBC 2.19 L Hgb 6.7 L* Hct 20.5 L* MCV 93.6 MCH 30.6 MCHC 32.7 RDW 17.2 H Plt Count 137 MPV 9.8 Gran % 73.1 H Lymph % (Auto) 17.2 L [place] % (Auto) 4.0 Eos % (Auto) 5.3 H Baso % (Auto) 0.4 Gran # 3.45 Lymph # (Auto) 0.8 L [place] # (Auto) 0.2 Eos # (Auto) 0.3 Baso # (Auto) 0.02 Sodium 139 Potassium 5.3 H Chloride 102 Carbon Dioxide 23 Anion Gap 19 BUN 112 H Creatinine 9.8 H* Est GFR ( Amer) 7 Est GFR (Non-Af Amer) 5 Random Glucose 82 Calcium 8.1 L Total Bilirubin 0.6 AST 32 ALT 28 Alkaline Phosphatase 129 H D Total Protein 7.7 Albumin 3.7 Globulin 4.0 Albumin/Globulin Ratio 0.9 L Blood Type A POSITIVE Antibody Screen Negative Crossmatch See Detail BBK History Checked Patient has bt Assessment & Plan - Assessment and Plan (Free Text) Assessment: Patient is a 67 year male with past medical history HTN, T2DM, ESRD on HD, CHF, arthritis who presented to ED for evaluation of anemia. Plan: Acute on chronic anemia - Hgb on admission 6.7 - 1 unit pRBCs given in ED, 2nd unit to be given - Iron studies, EPO, retic count, soluble transferrin receptor Ab - FOBT - Chest abd/pelvis w/o contrast - GI consulted. Appreciate recs. - Continue home Feosul ESRD on HD - Nephrology consulted. Appreciate recs. Hyperkalemia - EKG showed sinus rhythm w/1st degree AV block with PACs - Repeat EKG in AM HTN - continue home medications - Hydralazine 10 mg PO TID, Coreg 6.25 mg PO BID, Amiodarone 200 mg PO daily - hold lisinopril T2DM - ISS - Accuchecks CHF - ECHO from 10/2016 showed EF 22%, severe hypokinesis, mild-mod pulm HTN DVT/GI PPX - SCDs - Protonix 40 IV Q12H Case discussed with attending Dr. Kedar Denny PGY-1 - Date & Time Date: 02/16/18 Time: 18:00 <Geoffrey Thacker U - Last Filed: 02/24/18 16:53> Results - Vital Signs Recent Vital Signs: Last Vital Signs Temp 97.7 F 02/19/18 08:04 Pulse 63 02/19/18 10:19 Resp 18 02/19/18 08:04 BP 119/73 02/19/18 10:19 Pulse Ox 99 02/19/18 08:04 - Labs Result Diagrams: 02/19/18 06:30 02/19/18 06:30 Attending/Attestation - Attestation I have personally seen and examined this patient.: Yes I have fully participated in the care of the patient.: Yes I have reviewed all pertinent clinical information: Yes Notes (Text): Please see/read my dictated notes.
--- NOTE | 2018-02-16 17:43 | CARD ---
APPROVED REPORT Date of service: 02/16/2018 EKG Measurement Heart [id number] <Conclusion> Sinus rhythm with 1st degree AV block with premature atrial complexes Low voltage complexes Right axis deviation Nonspecific intraventricular conduction delay Prolonged QT Abnormal ECG
[2018-02-16 18:31] LABS: IRON 62 ug/dL (45-180)
[2018-02-16 18:40] LABS: % IRON SATURATION 24 % (20-55); TOTAL IRON BINDING CAPACITY 262 ug/dL (261-462)
[2018-02-16 18:46] LABS: FREE T4 1.89 ng/dL (0.78-2.19)
[2018-02-16 21:03] LABS: T4 6.1 ug/dL (5.5-11.0)
[2018-02-16 21:46] LABS: HEPATITIS B SURFACE AG Negative (NEGATIVE)
[2018-02-16 21:51] LABS: HEPATITIS A IGM NEGATIVE (NEGATIVE); HEPATITIS B CORE AB NEGATIVE (NEGATIVE)
[2018-02-16 22:03] LABS: HEPATITIS C ANTIBODY NEGATIVE (NEGATIVE)
[2018-02-16] MEDS ORDERED: Influenza Vaccine 60 mcg/0.5 mL SYR (4YR UP) IM ONE (22:27)
[2018-02-16] MEDS ORDERED: Pneumococcal 23-Valent Vaccine IM ONE (22:27)
[2018-02-17 07:17] LABS: HEMOGLOBIN 7.3 g/dL (14.0-18.0); MEAN CORPUSCULAR HGB CONC 32.3 g/dl (31.0-37.0); MEAN PLATELET VOLUME 9.6 fl (7.0-11.0); RBC 2.43 10^6/uL (3.5-6.1); RED CELL DISTRIBUTION WIDTH 16.8 % (11.5-14.5); WHITE BLOOD COUNT 4.4 10^3/uL (4.5-11.0)
[2018-02-17] MEDS ORDERED: Insulin Lispro (humaLOG) MEDIUM Coverage SC SCH (07:30)
[2018-02-17 07:35] LABS: CALCIUM 7.7 mg/dL (8.4-10.5)
[2018-02-17] MEDS: Insulin Reg-HIGH-Coverage SC SCH ×4 (08:00→22:00)
--- NOTE | 2018-02-17 08:02 | HP ---
DATE OF EXAM: 02/16/2018 HISTORY OF PRESENT ILLNESS: The patient is a 67-year-old male presented to the emergency room from hemodialysis center for a low hemoglobin of 6. The patient complained of weakness and dizziness. The patient was examined. Vital signs, diagnostic data reviewed. Please refer to the detailed history, physical examination done by the biomedical engineer, Dr. Denisha March. IMPRESSION: 1. Severe symptomatic anemia with decreasing hemoglobin to 6 g. 2. Generalized weakness and fatigue. 3. Lightheadedness. 4. End-stage renal disease, hemodialysis dependent since January 2017. 5. Hypotension. 6. History of severe symptomatic anemia with a decreasing hemoglobin of 6.7. 7. Borderline hyperkalemia. 8. History of congestive heart failure, cardiomyopathy and automatic implantable cardioverter defibrillator implant. 9. Right axis deviation. 10. History of cardiomyopathy with automatic implantable cardioverter defibrillator implant. 11. History of diabetes mellitus for 20 years. 12. Hypertension. 13. History of anemia according to the patient recently diagnosed 2 months ago. 14. History of status post multiple packed red blood cell transfusions. 15. History of negative colonoscopy. 16. History of left foot osteomyelitis and abscess. 17. History of left upper extremity arteriovenous fistula. 18. Cardiomegaly. 19. History of automatic implantable cardioverter defibrillator, history of type 2 diabetes mellitus, history of multiple blood transfusions. 20. History of elevated erythrocyte sedimentation rate. 21. Elevated prostate-specific antigen of 6.4. 22. Stool for occult blood positive. 23. History of free kappa monoclonal free light chain present. 24. 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 25. Left foot Escherichia coli, coagulase-negative Staphylococcus and Corynebacterium, left diabetic foot ulceration and Serratia marcescens diabetic foot ulceration. 26. End-stage renal disease, hemodialysis dependent 3 times a week via the left upper extremity arteriovenous fistula. 27. Peripheral vascular disease with abnormal left ankle brachial index at rest and history of left iliac/common femoral artery occlusive disease. 28. History of signing out against medical advice. 29. Ascites. 30. Urinary bladder wall thickening. 31. Left and right foot cellulitis. 32. Gallbladder wall thickening. 33. Splenomegaly. 34. Abdominal ascites. 35. Status post paracentesis of 5.8 liters. 36. Peripheral vascular disease. 37. Hepatomegaly. 38. Cholelithiasis. 39. Nodular hepatic contour. 40. Pancreatic fatty atrophy. 41. History of bilateral adrenal gland hypertrophy. 42. Distended urinary bladder. 43. Prostatomegaly. 44. Perihepatic perisplenic ascites. 45. Degenerative joint disease. 46. Status post esophagogastroduodenoscopy and colonoscopy. 47. History of paracentesis. 48. Cardiomyopathy with left ventricular ejection fraction of 22%. 49. Pulmonary hypertension with right ventricular systolic pressure of 50 mmHg. 50. Concentric left ventricular hypertrophy. 51. Severely impaired left ventricular systolic function. 52. Left ventricular global hypokinesis. 53. Severely reduced right ventricular systolic function and moderately dilated right ventricle. 54. Moderately dilated left atrium. 55. Moderately thickened aortic valve. 56. Moderate mitral regurgitation. 57. Moderate pulmonary hypertension with elevated right ventricular systolic pressure of 50 mmHg. 58. 59. History of right foot cellulitis. 60. Left foot metatarsal joint cellulitis. 61. Systolic congestive heart failure. 62. History of nonsustained ventricular tachycardia. 63. History of sleep apnea. 64. History of noncompliance. 65. Urinary retention with marked postvoid residual. PLAN: At this time, the patient has been admitted from the ER. The patient has been ordered transfusion of 2 units of PRBC. Iron studies, hemoglobin A1c, lipid panel, thyroid panel have been ordered. Repeat CBC, CMP, and phosphorus have been ordered. Consultation with Gastroenterology, Nephrology, Podiatry. The patient's case referred for diabetic education, TCU evaluation, vp digital marketing social media and crm. The patient has been resumed on hydralazine 10 mg 3 times a day, Colace 100 mg 3 times a day, amiodarone 200 mg daily, Coreg 6.25 twice a day, ferrous sulfate 324 three times a day, Flomax 0.4 mg daily, insulin sliding scale coverage high dose a.c. and at bedtime, Lipitor 40 mg daily, Nephro-Tyson 1 capsule daily, Protonix 40 mg IV every 12 hours, Renvela 1 tablet twice a day, Tylenol p.r.n., Zofran 4 mg IV every [address] chest, abdomen, pelvis ordered for evaluation of anemia. The patient has been ordered renal diet. Stool for occult blood. Physical therapy, occupational therapy ordered. The patient's Zestril will be held because of hyperkalemia. The patient will be restarted on all appropriate home medications. At present, further management will be dependent upon the patient's clinical condition, hemodynamic status and as per the patient's response to therapeutic intervention, as per the patient's diagnostic test results and as per recommendations by all the physicians involved in the care of the patient. At present, the patient is in the process of getting blood transfusion x2 units. The patient's repeat lab has been ordered. Please refer to the detailed history and physical by the biomedical engineer. Dictated and electronically signed, not read. Geoffrey Thacker MD
[2018-02-17] MEDS ORDERED: Sod Polystyrene Sulf 15 gm/60 ml Susp PO ONE (08:07)
--- NOTE | 2018-02-17 11:05 | PN ---
DATE: 02/17/2018 SUBJECTIVE: The patient is in room 570 and also, the patient was seen during dialysis. The patient is in the process of getting dialyzed. Overnight nurse's notes were reviewed. No bleeding. No melena. No chest pain. No shortness of breath noted. No bleeding noted. No other gastrointestinal bleeding noted or documented. Overnight nurse's notes were reviewed. PHYSICAL EXAMINATION: VITAL SIGNS: T-max 97.4, pulse 63, blood pressure 106/68, respirations 18, O2 sat 98%. HEAD: Normocephalic, atraumatic. HEENT examination shows pinkish pale conjunctivae. Anicteric sclerae. No oropharyngeal lesion. No neck rigidity. CHEST: Kyphosis. LUNGS: Examination shows no audible crackle, rales or wheezing. CARDIOVASCULAR: S1, S2, regular rhythm. Questionable soft systolic murmur in left sternal border, right second intercostal space, left second intercostal space. ABDOMEN: Soft. Positive bowel sounds. No palpable hepatosplenomegaly noted. GENITALIA: Male. EXTREMITIES: Shows positive left upper extremity AV fistula, positive contractions of bilateral upper extremity noted. No pitting edema of the lower extremity noted. MUSCULOSKELETAL: Examination as per the body mass index. Gait examination independent. VASCULAR: Decreased palpable pulses of the lower extremity. Positive left upper extremity AV fistula noted. Positive thrill noted. NEUROLOGIC: The patient is alert, awake, oriented x3. Cranial nerves II-XII limited. DIAGNOSTICS: The patient received 1 unit of PRBC in the last 12 to 24 hours. Diagnostics from 02/17/2018: WBC 4.4, hemoglobin/hematocrit 7.3/22.6, platelets 112. Sodium 139, potassium 5.8, chloride 103, CO2 of 24, BUN 120, creatinine 10.7, glucose 84, calcium 7.7, phosphorus 8.5. Hepatitis A, B, C serologies negative. Cholesterol 136. EKG shows normal sinus rhythm, right axis deviation. IMPRESSION AND PLAN: 1. Severe symptomatic anemia, etiology unclear. 2. Status post packed red blood cell transfusion x1. 3. Questionable anemia of chronic disease. 4. Non-hemolyzed hyperkalemia. 5. End-stage renal disease, hemodialysis dependent 3 times a week via the left upper extremity arteriovenous fistula. 6. Hyperphosphatemia and secondary hyperparathyroidism. 7. Right axis deviation. 8. Hypertension. 9. History of nonsustained ventricular tachycardia. 10. History of cardiomyopathy and congestive heart failure. 11. Status post automatic implantable cardioverter defibrillator implant. 12. Diabetes mellitus. 13. Dilated cardiomyopathy. 14. History of poor compliance. 15. Bilateral upper extremity flexion contractures. 16. Relative borderline thrombocytopenia. 17. History of noncompliance and history of signing out against medical advise. 18. History of peripheral vascular disease. 19. History of diabetic foot ulceration and diabetic foot disease. 20. History of recurrent anemia. 21. History of colonoscopy, reported negative by the patient's nurses, history of esophagogastroduodenoscopy. 1. Severe symptomatic anemia with decreasing hemoglobin to 6 g. 2. Generalized weakness and fatigue. 3. Lightheadedness. 4. End-stage renal disease, hemodialysis dependent since January 2017. 5. Hypotension. 6. History of severe symptomatic anemia with a decreasing hemoglobin of 6.7. 7. Borderline hyperkalemia. 8. History of congestive heart failure, cardiomyopathy and automatic implantable cardioverter defibrillator implant. 9. Right axis deviation. 10. History of cardiomyopathy with automatic implantable cardioverter defibrillator implant. 11. History of diabetes mellitus for 20 years. 12. Hypertension. 13. History of anemia according to the patient recently diagnosed 2 months ago. 14. History of status post multiple packed red blood cell transfusions. 15. History of negative colonoscopy. 16. History of left foot osteomyelitis and abscess. 17. History of left upper extremity arteriovenous fistula. 18. Cardiomegaly. 19. History of automatic implantable cardioverter defibrillator, history of type 2 diabetes mellitus, history of multiple blood transfusions. 20. History of elevated erythrocyte sedimentation rate. 21. Elevated prostate-specific antigen of 6.4. 22. Stool for occult blood positive. 23. History of free kappa monoclonal free light chain present. 24. 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 25. Left foot Escherichia coli, coagulase-negative Staphylococcus and Corynebacterium, left diabetic foot ulceration and Serratia marcescens diabetic foot ulceration. 26. End-stage renal disease, hemodialysis dependent 3 times a week via the left upper extremity arteriovenous fistula. 27. Peripheral vascular disease with abnormal left ankle brachial index at rest and history of left iliac/common femoral artery occlusive disease. 28. History of signing out against medical advice. 29. Ascites. 30. Urinary bladder wall thickening. 31. Left and right foot cellulitis. 32. Gallbladder wall thickening. 33. Splenomegaly. 34. Abdominal ascites. 35. Status post paracentesis of 5.8 liters. 36. Peripheral vascular disease. 37. Hepatomegaly. 38. Cholelithiasis. 39. Nodular hepatic contour. 40. Pancreatic fatty atrophy. 41. History of bilateral adrenal gland hypertrophy. 42. Distended urinary bladder. 43. Prostatomegaly. 44. Perihepatic perisplenic ascites. 45. Degenerative joint disease. 46. Status post esophagogastroduodenoscopy and colonoscopy. 47. History of paracentesis. 48. Cardiomyopathy with left ventricular ejection fraction of 22%. 49. Pulmonary hypertension with right ventricular systolic pressure of 50 mmHg. 50. Concentric left ventricular hypertrophy. 51. Severely impaired left ventricular systolic function. 52. Left ventricular global hypokinesis. 53. Severely reduced right ventricular systolic function and moderately dilated right ventricle. 54. Moderately dilated left atrium. 55. Moderately thickened aortic valve. 56. Moderate mitral regurgitation. 57. Moderate pulmonary hypertension with elevated right ventricular systolic pressure of 50 mmHg. 58. 59. History of right foot cellulitis. 60. Left foot metatarsal joint cellulitis. 61. Systolic congestive heart failure. 62. History of nonsustained ventricular tachycardia. 63. History of sleep apnea. 64. History of noncompliance. 65. Urinary retention with marked postvoid residual. PLAN: At this time, the patient will proceed with dialysis and complete the dialysis today with possibly most likely low potassium bath. The patient will be ordered transfusion of 2 units of PRBC during hemodialysis today. The patient will be continued on fingerstick blood sugar sliding scale. The patient will be continued on IV proton pump inhibitor. The patient is awaiting further evaluation and recommendation by Nephrology and Gastroenterology.. The patient will be continued on the medications as per the MAR of today which was reviewed. The patient has been updated about his condition, diagnosis, treatment plan, management plan at length. All questions concerned answered to the patient's satisfaction. We will await further recommendation by Gastroenterology, Nephrology and we will await further recommendation for clearance for discharge by Nephrology and Gastroenterology. We will await for the CAT scan of the chest, abdomen, pelvis results. Stool occult blood ordered. Per the patient's pending diagnostic data will be reviewed when available. Dictated and electronically signed, not read. Geoffrey Thacker MD MTDD
--- NOTE | 2018-02-17 11:34 | CT ---
Date of service: 02/16/2018 PROCEDURE: CT Chest, Abdomen and Pelvis without intravenous contrast HISTORY: acute anemia COMPARISON: 02/06/2018 CT TECHNIQUE: Radiation dose: Total exam DLP = 1276.02 mGy-cm. This CT exam was performed using one or more of the following dose reduction techniques: Automated exposure control, adjustment of the mA and/or kV according to patient size, and/or use of iterative reconstruction technique. FINDINGS: CT CHEST WITHOUT CONTRAST: LUNGS: Clear. No nodule, mass or consolidation. MEDIASTINUM: Unremarkable. Normal caliber aorta and pulmonary arterial trunk. Moderate cardiomegaly. Pacemaker LYMPH NODES: Unremarkable. PLEURA: Unremarkable. No pneumothorax. No pleural fluid. BONES: Unremarkable. OTHER FINDINGS: None. CT ABDOMEN AND PELVIS: LIVER: Unremarkable. No gross lesion or ductal dilatation. GALLBLADDER AND BILE DUCTS: Gallstone. Mild mural thickening PANCREAS: Unremarkable. No gross lesion or ductal dilatation. SPLEEN: Unremarkable. ADRENALS: Unremarkable. No mass. KIDNEYS AND URETERS: Unremarkable. No hydronephrosis. No solid mass. VASCULATURE: Aortic calcification Unremarkable. No aortic aneurysm. BOWEL: Unremarkable. No obstruction. No gross mural thickening. APPENDIX: Normal appendix. PERITONEUM: There is a moderate amount of ascites. This is similar to the previous study. LYMPH NODES: Unremarkable. No enlarged lymph nodes. BLADDER: Mural thickening in the bladder REPRODUCTIVE: Prostate is enlarged measuring 60 mm transversely BONES: Disc bulge and degeneration at L5-S1 OTHER FINDINGS: None. IMPRESSION: Moderate ascites. No acute intra-abdominal findings
[2018-02-17] MEDS: Multivitamin Vitamin B Complex (Nephro-Vite) Tab PO SCH (13:57)
--- NOTE | 2018-02-17 14:14 | CP.PCM.CON ---
<Yesica Rangel - Last Filed: 02/17/18 14:10> History of Present Illness - History of Present Illness History of Present Illness: Gastroenterology Fellow/PGY6 Consult Note 67 year old male with PMH of dilated cardiomyopathy (EF 22%) s/p defibrillator, ESRD on HD MWF, HTN, Diabetes, and anemia requiring transfusion presenting with low hemoglobin from dialysis center. Patient denies change from baseline intermittent weakness to to raise concern for his blood count to have dropped. He denies lightheadedness, dizziness, chest pain, shortness of breath, nausea, vomiting, hematemesis, abdominal pain, diarrhea, constipation, melena, hematochezia, or unintentional weight loss. Recently hospitalized for severe anemia requiring 4 units of pRBC transfusion, left AMA with plan for outpatient bone marrow biopsy. 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 pylori negative gastritis, and normal duodenal biopsies. Patient had prior colonoscopy 2-3 weeks ago endorsed to be normal. Family History- denies stomach cancer, colon cancer Social History- social ETOH use, occasional cigar use, denies cigarette or illicit drug use Surgical History- LUE AV shunt, defibrillator Review of Systems - Review of Systems Review of Systems: 12-point review of systems negative except for as above Past Patient History - Infectious Disease Hx of Infectious Diseases: None - Past Social History Smoking Status: Never Smoked - CARDIAC Hx Cardiac Disorders: Yes Hx Congestive Heart Failure: Yes (B/L LL +3 edema) Hx Hypertension: Yes Hx Internal Defibrillator: Yes - PULMONARY Hx Respiratory Disorders: No - NEUROLOGICAL Hx Neurological Disorder: No - HEENT Hx HEENT Problems: No - RENAL Hx Chronic Kidney Disease: Yes (LEFT FOREARM SHUNT) Hx Dialysis: Yes Date of Last Dialysis Treatment: 02/14/18 Hx Renal Failure: Yes - ENDOCRINE/METABOLIC Hx Endocrine Disorders: Yes Hx Diabetes Mellitus Type 2: Yes - HEMATOLOGICAL/ONCOLOGICAL Hx Blood Disorders: Yes Hx Anemia: Yes (BLOOD TRANSFUSION) - INTEGUMENTARY Hx Dermatological Problems: Yes Other/Comment: 02-16-18 BILATERAL LEG EDEMA +3 PITTING - MUSCULOSKELETAL/RHEUMATOLOGICAL Hx Musculoskeletal Disorders: Yes Hx Falls: Yes Hx Unsteady Gait: Yes (ROLLATOR) - GASTROINTESTINAL Hx Gastrointestinal Disorders: Yes (CONSTIPATION) - GENITOURINARY/GYNECOLOGICAL Hx Genitourinary Disorders: Yes (ANURIA) - PSYCHIATRIC Hx Psychophysiologic Disorder: No Hx Substance Use: No - SURGICAL HISTORY Hx Surgeries: Yes Other/Comment: L AV shunt - ANESTHESIA Hx Anesthesia: Yes Hx Anesthesia Reactions: No Hx Malignant Hyperthermia: No Meds Allergies/Adverse Reactions: Allergies Allergy/AdvReac Type Severity Reaction Status Date / Time No Known Allergies Allergy Verified 02/16/18 16:42 - Medications Medications: Current Medications Acetaminophen (Tylenol 325mg Tab) 650 mg PO Q6 PRN PRN Reason: TEMP>=99.5F Acetaminophen (Tylenol 650 Mg Supp) 650 mg RC Q6H PRN PRN Reason: TEMP>=99.5F Amiodarone HCl (Cordarone) 200 mg PO DAILY [facility] Last Admin: 02/17/18 13:58 Dose: 200 mg Atorvastatin Calcium (Lipitor) 40 mg PO DIN [facility] Carvedilol (Coreg) 6.25 mg PO BID [facility] Last Admin: 02/17/18 13:58 Dose: 6.25 mg Docusate Sodium (Colace) 100 mg PO BID [facility] Last Admin: 02/17/18 10:00 Dose: Not Given Docusate Sodium (Colace) 100 mg PO TID [facility] Last Admin: 02/17/18 13:58 Dose: 100 mg Ferrous Sulfate (Feosol) 324 mg PO TID [facility] Last Admin: 02/17/18 13:58 Dose: 324 mg Hydralazine HCl (Apresoline) 10 mg PO TID [facility] Last Admin: 02/17/18 13:58 Dose: 10 mg Insulin Human Regular (Humulin R High) 0 units SC [facility]; Protocol Last Admin: 02/17/18 12:00 Dose: Not Given Non-Formulary Medication (Sevelamer Carbonate [Renvela]) 1 tab PO BID [facility] Ondansetron HCl (Zofran Inj) 4 mg IVP Q4H PRN PRN Reason: Nausea/Vomiting Pantoprazole Sodium (Protonix Inj) 40 mg IVP Q12 [facility] Last Admin: 02/17/18 13:58 Dose: 40 mg Tamsulosin HCl (Flomax) 0.4 mg PO DAILY [facility] Last Admin: 02/17/18 13:58 Dose: 0.4 mg Vitamin B Complex/Vit C/Folic Acid (Nephro-Tyson) 1 tab PO DAILY [facility] Last Admin: 02/17/18 13:57 Dose: 1 tab Physical Exam - Constitutional Appears: Non-toxic, No Acute Distress - Head Exam Head Exam: ATRAUMATIC, NORMOCEPHALIC - Eye Exam Eye Exam: EOMI, PERRL. absent: Scleral icterus Pupil Exam: PERRL. absent: Miosis, Mydriatic - ENT Exam ENT Exam: Mucous Membranes Moist, Normal Oropharynx - Neck Exam Neck exam: Positive for: Full Rom, Normal Inspection - Respiratory Exam Respiratory Exam: Clear to Auscultation Bilateral. absent: Rales, Rhonchi, Wheezes - Cardiovascular Exam Cardiovascular Exam: RRR, +S1, +S2. absent: Gallop, Rubs - GI/Abdominal Exam GI & Abdominal Exam: Normal Bowel Sounds, Soft. absent: Distended, Firm, Guarding, Organomegaly, Rigid, Tenderness - Rectal Exam Additional comments: refused - Extremities Exam Extremities exam: Positive for: normal inspection. Negative for: pedal edema - Neurological Exam Neurological exam: Alert, Oriented x3 - Psychiatric Exam Psychiatric exam: Normal Affect, Normal Mood - Skin Skin Exam: Dry, Intact, Normal Color, Warm Results - Vital Signs Recent Vital Signs: Last Vital Signs Temp 97.9 F 02/17/18 06:00 Pulse 70 02/17/18 06:00 Resp 18 02/17/18 06:00 BP 130/82 02/17/18 13:58 Pulse Ox 100 02/17/18 06:00 - Labs Result Diagrams: 02/17/18 07:00 02/17/18 07:00 Labs: Laboratory Results - last 24 hr 02/16/18 02/16/18 02/16/18 13:00 13:00 13:00 WBC RBC Hgb Hct MCV MCH MCHC RDW Plt Count MPV Gran % Lymph % (Auto) [place] % (Auto) Eos % (Auto) Baso % (Auto) Gran # Lymph # (Auto) [place] # (Auto) Eos # (Auto) Baso # (Auto) Retic Count Sodium Potassium Chloride Carbon Dioxide Anion Gap BUN Creatinine Est GFR ( Amer) Est GFR (Non-Af Amer) POC Glucose (mg/dL) Random Glucose Hemoglobin A1c 5.6 Uric Acid Calcium Phosphorus Magnesium Iron 62 TIBC 262 % Saturation 24 Ferritin 541.0 Total Bilirubin AST ALT Alkaline Phosphatase Total Protein Albumin Globulin Albumin/Globulin Ratio Triglycerides 66 Cholesterol 136 LDL Cholesterol Direct 75 HDL Cholesterol 38 Free T4 Thyroxine (T4) TSH 3rd Generation Hepatitis A IgM Ab Hep Bs Antigen Hep B Core IgM Ab Hepatitis C Antibody Blood Type Antibody Screen Crossmatch BBK History Checked 02/16/18 02/16/18 02/16/18 13:00 13:00 13:00 WBC RBC Hgb Hct MCV MCH MCHC RDW Plt Count MPV Gran % Lymph % (Auto) [place] % (Auto) Eos % (Auto) Baso % (Auto) Gran # Lymph # (Auto) [place] # (Auto) Eos # (Auto) Baso # (Auto) Retic Count 1.34 Sodium Potassium Chloride Carbon Dioxide Anion Gap BUN Creatinine Est GFR ( Amer) Est GFR (Non-Af Amer) POC Glucose (mg/dL) Random Glucose Hemoglobin A1c Uric Acid Calcium Phosphorus Magnesium Iron TIBC % Saturation Ferritin Total Bilirubin AST ALT Alkaline Phosphatase Total Protein Albumin Globulin Albumin/Globulin Ratio Triglycerides Cholesterol LDL Cholesterol Direct HDL Cholesterol Free T4 1.89 Thyroxine (T4) 6.1 TSH 3rd Generation 2.37 Hepatitis A IgM Ab Negative Hep Bs Antigen Negative Hep B Core IgM Ab Negative Hepatitis C Antibody Negative Blood Type Antibody Screen Crossmatch BBK History Checked 02/16/18 02/16/18 02/16/18 14:30 14:45 14:45 WBC 4.7 RBC 2.19 L Hgb 6.7 L* Hct 20.5 L* MCV 93.6 MCH 30.6 MCHC 32.7 RDW 17.2 H Plt Count 137 MPV 9.8 Gran % 73.1 H Lymph % (Auto) 17.2 L [place] % (Auto) 4.0 Eos % (Auto) 5.3 H Baso % (Auto) 0.4 Gran # 3.45 Lymph # (Auto) 0.8 L [place] # (Auto) 0.2 Eos # (Auto) 0.3 Baso # (Auto) 0.02 Retic Count Sodium 139 Potassium 5.3 H Chloride 102 Carbon Dioxide 23 Anion Gap 19 BUN 112 H Creatinine 9.8 H* Est GFR ( Amer) 7 Est GFR (Non-Af Amer) 5 POC Glucose (mg/dL) Random Glucose 82 Hemoglobin A1c Uric Acid Calcium 8.1 L Phosphorus Magnesium Iron TIBC % Saturation Ferritin Total Bilirubin 0.6 AST 32 ALT 28 Alkaline Phosphatase 129 H D Total Protein 7.7 Albumin 3.7 Globulin 4.0 Albumin/Globulin Ratio 0.9 L Triglycerides Cholesterol LDL Cholesterol Direct HDL Cholesterol Free T4 Thyroxine (T4) TSH 3rd Generation Hepatitis A IgM Ab Hep Bs Antigen Hep B Core IgM Ab Hepatitis C Antibody Blood Type A POSITIVE Antibody Screen Negative Crossmatch See Detail BBK History Checked Patient has bt 02/16/18 02/17/18 02/17/18 21:45 06:47 07:00 WBC 4.4 L RBC 2.43 L Hgb 7.3 L Hct 22.6 L MCV 93.0 MCH 30.0 MCHC 32.3 RDW 16.8 H Plt Count 123 MPV 9.6 Gran % Lymph % (Auto) [place] % (Auto) Eos % (Auto) Baso % (Auto) Gran # Lymph # (Auto) [place] # (Auto) Eos # (Auto) Baso # (Auto) Retic Count Sodium Potassium Chloride Carbon Dioxide Anion Gap BUN Creatinine Est GFR ( Amer) Est GFR (Non-Af Amer) POC Glucose (mg/dL) 134 H 76 Random Glucose Hemoglobin A1c Uric Acid Calcium Phosphorus Magnesium Iron TIBC % Saturation Ferritin Total Bilirubin AST ALT Alkaline Phosphatase Total Protein Albumin Globulin Albumin/Globulin Ratio Triglycerides Cholesterol LDL Cholesterol Direct HDL Cholesterol Free T4 Thyroxine (T4) TSH 3rd Generation Hepatitis A IgM Ab Hep Bs Antigen Hep B Core IgM Ab Hepatitis C Antibody Blood Type Antibody Screen Crossmatch BBK History Checked 02/17/18 02/17/18 07:00 08:23 WBC RBC Hgb Hct MCV MCH MCHC RDW Plt Count MPV Gran % Lymph % (Auto) [place] % (Auto) Eos % (Auto) Baso % (Auto) Gran # Lymph # (Auto) [place] # (Auto) Eos # (Auto) Baso # (Auto) Retic Count Sodium 139 Potassium 5.8 H* Chloride 103 Carbon Dioxide 21 Anion Gap 21 H BUN 120 H Creatinine 10.7 H* Est GFR ( Amer) 6 Est GFR (Non-Af Amer) 5 POC Glucose (mg/dL) Random Glucose 84 Hemoglobin A1c Uric Acid 8.0 Calcium 7.7 L Phosphorus 8.5 H Magnesium 2.2 Iron TIBC % Saturation Ferritin Total Bilirubin AST ALT Alkaline Phosphatase Total Protein Albumin Globulin Albumin/Globulin Ratio Triglycerides Cholesterol LDL Cholesterol Direct HDL Cholesterol Free T4 Thyroxine (T4) TSH 3rd Generation Hepatitis A IgM Ab Hep Bs Antigen Hep B Core IgM Ab Hepatitis C Antibody Blood Type Antibody Screen Crossmatch BBK History Checked Assessment & Plan - Assessment and Plan (Free Text) Assessment: 67 year old male with PMH of dilated cardiomyopathy (EF 22%) s/p defibrillator, ESRD on HD MWF, HTN, Diabetes, and anemia requiring transfusion presenting with low hemoglobin from dialysis center. Active treatment of acute on chronic anemia requiring transfusion. Recently hospitalized for severe anemia requiring 4 units of pRBC transfusion, left AMA on 02/08,with plan for outpatient bone marrow biopsy. 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 pylori negative gastritis, and normal duodenal biopsies. Patient had prior colonoscopy 2-3 weeks ago endorsed to be normal. Plan: -low suspicion for acute GI bleed -no signs of upper GI bleed on recent EGD 02/07/18 -contacted Dr. 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 (no documentation of active bleeding), mild sigmoid diverticulosis, medium-sized internal hemorrhoids -patient requires outpatient capsule endoscopy for further small bowel evaluation for AVMs and/or other pathology for potential GI source of anemia -Hematology managing- follow up recommendation -receiving two Units pRBCs transfusion with dialysis -on PPI BID -will follow clinical course <Foreign Wynn V - Last Filed: 02/17/18 23:26> Meds - Medications Medications: Current Medications Acetaminophen (Tylenol 325mg Tab) 650 mg PO Q6 PRN PRN Reason: TEMP>=99.5F Acetaminophen (Tylenol 650 Mg Supp) 650 mg RC Q6H PRN PRN Reason: TEMP>=99.5F Amiodarone HCl (Cordarone) 200 mg PO DAILY [facility] Last Admin: 02/17/18 13:58 Dose: 200 mg Atorvastatin Calcium (Lipitor) 40 mg PO DIN [facility] Last Admin: 02/17/18 17:11 Dose: 40 mg Carvedilol (Coreg) 6.25 mg PO BID [facility] Last Admin: 02/17/18 17:11 Dose: 6.25 mg Docusate Sodium (Colace) 100 mg PO TID [facility] Last Admin: 02/17/18 17:10 Dose: Not Given Ferrous Sulfate (Feosol) 324 mg PO TID [facility] Last Admin: 02/17/18 17:11 Dose: 324 mg Hydralazine HCl (Apresoline) 10 mg PO TID [facility] Last Admin: 02/17/18 17:11 Dose: 10 mg Insulin Human Regular (Humulin R High) 0 units SC [facility]CHS [facility]; Protocol Last Admin: 02/17/18 17:11 Dose: Not Given Non-Formulary Medication (Sevelamer Carbonate [Renvela]) 1 tab PO BID [facility] Ondansetron HCl (Zofran Inj) 4 mg IVP Q4H PRN PRN Reason: Nausea/Vomiting Pantoprazole Sodium (Protonix Inj) 40 mg IVP Q12 [facility] Last Admin: 02/17/18 21:20 Dose: 40 mg Tamsulosin HCl (Flomax) 0.4 mg PO DAILY [facility] Last Admin: 02/17/18 13:58 Dose: 0.4 mg Vitamin B Complex/Vit C/Folic Acid (Nephro-Tyson) 1 tab PO DAILY [facility] Last Admin: 02/17/18 13:57 Dose: 1 tab Results - Vital Signs Recent Vital Signs: Last Vital Signs Temp 97.8 F 02/17/18 23:15 Pulse 62 02/17/18 23:15 Resp 20 02/17/18 23:15 BP 105/70 02/17/18 23:15 Pulse Ox 100 02/17/18 23:15 - Labs Result Diagrams: 02/17/18 07:00 02/17/18 07:00 Labs: Laboratory Results - last 24 hr 02/16/18 02/16/18 02/17/18 13:00 14:30 06:47 WBC RBC Hgb Hct MCV MCH MCHC RDW Plt Count MPV Sodium Potassium Chloride Carbon Dioxide Anion Gap BUN Creatinine Est GFR ( Amer) Est GFR (Non-Af Amer) POC Glucose (mg/dL) 76 Random Glucose Hemoglobin A1c 5.6 Uric Acid Calcium Phosphorus Magnesium Blood Type A POSITIVE Antibody Screen Negative Crossmatch See Detail BBK History Checked Patient has bt 02/17/18 02/17/18 02/17/18 07:00 07:00 08:23 WBC 4.4 L RBC 2.43 L Hgb 7.3 L Hct 22.6 L MCV 93.0 MCH 30.0 MCHC 32.3 RDW 16.8 H Plt Count 123 MPV 9.6 Sodium 139 Potassium 5.8 H* Chloride 103 Carbon Dioxide 21 Anion Gap 21 H BUN 120 H Creatinine 10.7 H* Est GFR ( Amer) 6 Est GFR (Non-Af Amer) 5 POC Glucose (mg/dL) Random Glucose 84 Hemoglobin A1c Uric Acid 8.0 Calcium 7.7 L Phosphorus 8.5 H Magnesium 2.2 Blood Type Antibody Screen Crossmatch BBK History Checked 02/17/18 02/17/18 15:58 21:40 WBC RBC Hgb Hct MCV MCH MCHC RDW Plt Count MPV Sodium Potassium Chloride Carbon Dioxide Anion Gap BUN Creatinine Est GFR ( Amer) Est GFR (Non-Af Amer) POC Glucose (mg/dL) 112 H 110 Random Glucose Hemoglobin A1c Uric Acid Calcium Phosphorus Magnesium Blood Type Antibody Screen Crossmatch BBK History Checked Attending/Attestation - Attestation I have personally seen and examined this patient.: Yes I have fully participated in the care of the patient.: Yes I have reviewed all pertinent clinical information: Yes Notes (Text): treatThis is an addendum to GI progress report dictated by the GI Fellow.The patient was seen and examined earlier. Medical records, lab studies, imagings were reviewed. Last 24 hours events reviewed. Agreed with the above treatment plan as outlined in GI Fellow 's notes with the addition of the following No obvious melena or BRPR Physical EGD was reviewed Reduced. To 20 mg once daily Hematology follow-up If true Iron Deficiency consider endoscopy as patient after hematology review 02/17/18 23:23
--- NOTE | 2018-02-17 14:49 | CARD ---
APPROVED REPORT Date of service: 02/17/2018 EKG Measurement Heart [id number] <Conclusion> Sinus rhythm with 1st degree AV block Right axis deviation Low voltage QRS Abnormal ECG
--- NOTE | 2018-02-17 17:42 | CP.PCM.CON ---
<Charis Salguero - Last Filed: 02/18/18 08:59> History of Present Illness - History of Present Illness History of Present Illness: Consult note for Dr. Contreras 67 y/o male patient was seen and evaluated at bedside for ulceration to the left foot. Patient states he sees Dr. Contreras and Dr. Interiano in their office, and last saw them 2 week ago for wound care. Patient was admitted to the hospital 1 week ago, and had left AMA. Patient reports keeping the wound dressed with a band-aid. Patient reports there was drainage. Patient report he is admitted for low Hg/Hct levels. Patient denies any complaints at this time. The patient denies fevers, chills, headache, dizziness, cough, sore throat, chest pain, shortness of breath, dyspena on exertion, abdominal pain, nausea, vomiting, diarrhea, neck/ back pain, urinary/ bowel symptoms, trauma/ injury, or any other complaints. PMHx: arthritis, dialysis (M,W,F), defibrillator, HTN, DM PSHx: L toe wound debridement in the past Review of Systems - Review of Systems All systems: reviewed and no additional remarkable complaints except Review of Systems: As per HPI Past Patient History - Infectious Disease Hx of Infectious Diseases: None - Past Social History Smoking Status: Never Smoked - CARDIAC Hx Cardiac Disorders: Yes Hx Congestive Heart Failure: Yes (B/L LL +3 edema) Hx Hypertension: Yes Hx Internal Defibrillator: Yes - PULMONARY Hx Respiratory Disorders: No - NEUROLOGICAL Hx Neurological Disorder: No - HEENT Hx HEENT Problems: No - RENAL Hx Chronic Kidney Disease: Yes (LEFT FOREARM SHUNT) Hx Dialysis: Yes Date of Last Dialysis Treatment: 02/14/18 Hx Renal Failure: Yes - ENDOCRINE/METABOLIC Hx Endocrine Disorders: Yes Hx Diabetes Mellitus Type 2: Yes - HEMATOLOGICAL/ONCOLOGICAL Hx Blood Disorders: Yes Hx Anemia: Yes (BLOOD TRANSFUSION) - INTEGUMENTARY Hx Dermatological Problems: Yes Other/Comment: 02-16-18 BILATERAL LEG EDEMA +3 PITTING - MUSCULOSKELETAL/RHEUMATOLOGICAL Hx Musculoskeletal Disorders: Yes Hx Falls: Yes Hx Unsteady Gait: Yes (ROLLATOR) - GASTROINTESTINAL Hx Gastrointestinal Disorders: Yes (CONSTIPATION) - GENITOURINARY/GYNECOLOGICAL Hx Genitourinary Disorders: Yes (ANURIA) - PSYCHIATRIC Hx Psychophysiologic Disorder: No Hx Substance Use: No - SURGICAL HISTORY Hx Surgeries: Yes Other/Comment: L AV shunt - ANESTHESIA Hx Anesthesia: Yes Hx Anesthesia Reactions: No Hx Malignant Hyperthermia: No Meds Home Medications: Home Medication List Medication Instructions Recorded Confirmed Type RX: Carvedilol [Coreg] 6.25 mg PO BID #30 tab 02/17/18 Rx RX: Docusate [Colace] 100 mg PO TID #30 cap 02/17/18 Rx RX: hydrALAZINE [Apresoline] 10 mg PO TID tab 02/17/18 Rx Allergies/Adverse Reactions: Allergies Allergy/AdvReac Type Severity Reaction Status Date / Time No Known Allergies Allergy Verified 02/16/18 16:42 - Medications Medications: Current Medications Acetaminophen (Tylenol 325mg Tab) 650 mg PO Q6 PRN PRN Reason: TEMP>=99.5F Acetaminophen (Tylenol 650 Mg Supp) 650 mg RC Q6H PRN PRN Reason: TEMP>=99.5F Amiodarone HCl (Cordarone) 200 mg PO DAILY [facility] Last Admin: 02/17/18 13:58 Dose: 200 mg Atorvastatin Calcium (Lipitor) 40 mg PO DIN [facility] Last Admin: 02/17/18 17:11 Dose: 40 mg Carvedilol (Coreg) 6.25 mg PO BID [facility] Last Admin: 02/17/18 17:11 Dose: 6.25 mg Docusate Sodium (Colace) 100 mg PO TID [facility] Last Admin: 02/17/18 17:10 Dose: Not Given Ferrous Sulfate (Feosol) 324 mg PO TID [facility] Last Admin: 02/17/18 17:11 Dose: 324 mg Hydralazine HCl (Apresoline) 10 mg PO TID [facility] Last Admin: 02/17/18 17:11 Dose: 10 mg Insulin Human Regular (Humulin R High) 0 units SC [facility]; Protocol Last Admin: 02/17/18 17:11 Dose: Not Given Non-Formulary Medication (Sevelamer Carbonate [Renvela]) 1 tab PO BID [facility] Ondansetron HCl (Zofran Inj) 4 mg IVP Q4H PRN PRN Reason: Nausea/Vomiting Pantoprazole Sodium (Protonix Inj) 40 mg IVP Q12 [facility] Last Admin: 02/17/18 13:58 Dose: 40 mg Tamsulosin HCl (Flomax) 0.4 mg PO DAILY [facility] Last Admin: 02/17/18 13:58 Dose: 0.4 mg Vitamin B Complex/Vit C/Folic Acid (Nephro-Tyson) 1 tab PO DAILY [facility] Last Admin: 02/17/18 13:57 Dose: 1 tab Physical Exam - Constitutional Appears: Well, Non-toxic, No Acute Distress - Head Exam Head Exam: ATRAUMATIC, NORMOCEPHALIC - Extremities Exam Additional comments: Lower Extremity Exam VASC: DP and PT faintly palpable, CFT less than 3 seconds X 10, no edema, TG warm to warm within normal limits NEURO: grossly intact DERM: 3 cm X 3 cm wound at the dorso-medial aspect of hte left 1st MTPJ, 100% hyper-granular wound base noted, minimal sanguinous drainage noted with active bleeding upon debridement, minimal erythema left 1st mPTJ tanner-wound, no malodor, no probe to bone, no tunneling or tracking ORTHO: HAV deformities noted bilaterally, MSK 5/5 bilaterally, no posterior calf pain noted - Neurological Exam Neurological exam: Alert, Oriented x3 - Psychiatric Exam Psychiatric exam: Normal Affect, Normal Mood Results - Vital Signs Recent Vital Signs: Last Vital Signs Temp 97.8 F 02/17/18 14:00 Pulse 65 02/17/18 17:11 Resp 18 02/17/18 14:00 BP 117/77 02/17/18 17:11 Pulse Ox 100 02/17/18 14:00 - Labs Result Diagrams: 02/18/18 06:50 02/18/18 06:50 Labs: Laboratory Results - last 24 hr 02/16/18 02/16/18 02/16/18 13:00 13:00 13:00 WBC RBC Hgb Hct MCV MCH MCHC RDW Plt Count MPV Retic Count Sodium Potassium Chloride Carbon Dioxide Anion Gap BUN Creatinine Est GFR ( Amer) Est GFR (Non-Af Amer) POC Glucose (mg/dL) Random Glucose Hemoglobin A1c 5.6 Uric Acid Calcium Phosphorus Magnesium Iron 62 TIBC 262 % Saturation 24 Ferritin 541.0 Triglycerides 66 Cholesterol 136 LDL Cholesterol Direct 75 HDL Cholesterol 38 Free T4 Thyroxine (T4) TSH 3rd Generation Hepatitis A IgM Ab Hep Bs Antigen Hep B Core IgM Ab Hepatitis C Antibody Blood Type Antibody Screen Crossmatch BBK History Checked 02/16/18 02/16/18 02/16/18 13:00 13:00 13:00 WBC RBC Hgb Hct MCV MCH MCHC RDW Plt Count MPV Retic Count 1.34 Sodium Potassium Chloride Carbon Dioxide Anion Gap BUN Creatinine Est GFR ( Amer) Est GFR (Non-Af Amer) POC Glucose (mg/dL) Random Glucose Hemoglobin A1c Uric Acid Calcium Phosphorus Magnesium Iron TIBC % Saturation Ferritin Triglycerides Cholesterol LDL Cholesterol Direct HDL Cholesterol Free T4 1.89 Thyroxine (T4) 6.1 TSH 3rd Generation 2.37 Hepatitis A IgM Ab Negative Hep Bs Antigen Negative Hep B Core IgM Ab Negative Hepatitis C Antibody Negative Blood Type Antibody Screen Crossmatch BBK History Checked 02/16/18 02/16/18 02/17/18 14:30 21:45 06:47 WBC RBC Hgb Hct MCV MCH MCHC RDW Plt Count MPV Retic Count Sodium Potassium Chloride Carbon Dioxide Anion Gap BUN Creatinine Est GFR ( Amer) Est GFR (Non-Af Amer) POC Glucose (mg/dL) 134 H 76 Random Glucose Hemoglobin A1c Uric Acid Calcium Phosphorus Magnesium Iron TIBC % Saturation Ferritin Triglycerides Cholesterol LDL Cholesterol Direct HDL Cholesterol Free T4 Thyroxine (T4) TSH 3rd Generation Hepatitis A IgM Ab Hep Bs Antigen Hep B Core IgM Ab Hepatitis C Antibody Blood Type A POSITIVE Antibody Screen Negative Crossmatch See Detail BBK History Checked Patient has bt 02/17/18 02/17/18 02/17/18 07:00 07:00 08:23 WBC 4.4 L RBC 2.43 L Hgb 7.3 L Hct 22.6 L MCV 93.0 MCH 30.0 MCHC 32.3 RDW 16.8 H Plt Count 123 MPV 9.6 Retic Count Sodium 139 Potassium 5.8 H* Chloride 103 Carbon Dioxide 21 Anion Gap 21 H BUN 120 H Creatinine 10.7 H* Est GFR ( Amer) 6 Est GFR (Non-Af Amer) 5 POC Glucose (mg/dL) Random Glucose 84 Hemoglobin A1c Uric Acid 8.0 Calcium 7.7 L Phosphorus 8.5 H Magnesium 2.2 Iron TIBC % Saturation Ferritin Triglycerides Cholesterol LDL Cholesterol Direct HDL Cholesterol Free T4 Thyroxine (T4) TSH 3rd Generation Hepatitis A IgM Ab Hep Bs Antigen Hep B Core IgM Ab Hepatitis C Antibody Blood Type Antibody Screen Crossmatch BBK History Checked 02/17/18 15:58 WBC RBC Hgb Hct MCV MCH MCHC RDW Plt Count MPV Retic Count Sodium Potassium Chloride Carbon Dioxide Anion Gap BUN Creatinine Est GFR ( Amer) Est GFR (Non-Af Amer) POC Glucose (mg/dL) 112 H Random Glucose Hemoglobin A1c Uric Acid Calcium Phosphorus Magnesium Iron TIBC % Saturation Ferritin Triglycerides Cholesterol LDL Cholesterol Direct HDL Cholesterol Free T4 Thyroxine (T4) TSH 3rd Generation Hepatitis A IgM Ab Hep Bs Antigen Hep B Core IgM Ab Hepatitis C Antibody Blood Type Antibody Screen Crossmatch BBK History Checked Assessment & Plan - Assessment and Plan (Free Text) Assessment: 67 y/o male seen and evaluated for wound to the Left 1st MTPJ Plan: Patient seen and evaluated with Dr. Contreras Chart, labs and vitals reviewed- afebrile, absent leukocytosis Wound Culture from 02/05: E.coli, Coag Neg Staph, Corneybacterium species MATTHEW/PVR: normal to the R side, mild-borderline PAD on the left Wound cleansed with saline, and gauze, kerlix applied Ordered Foot X-ray- pending final read Podiatry will continue to follow patient while in house - Date & Time Date: 02/18/18 Time: 09:06 <Funmi Contreras - Last Filed: 02/25/18 15:22> Results - Vital Signs Recent Vital Signs: Last Vital Signs Temp 97.7 F 02/19/18 08:04 Pulse 63 02/19/18 10:19 Resp 18 02/19/18 08:04 BP 119/73 02/19/18 10:19 Pulse Ox 99 02/19/18 08:04 - Labs Result Diagrams: 02/19/18 06:30 02/19/18 06:30 Attending/Attestation - Attestation I have personally seen and examined this patient.: No I have fully participated in the care of the patient.: No I have reviewed all pertinent clinical information: No Notes (Text): 02/25/18 15:22 pt was in dialysis when I came to his room
--- NOTE | 2018-02-17 21:50 | CON ---
DATE: 02/17/2018 REASON FOR CONSULTATION: Recurrent anemia, hemoglobin of 6.2 as an outpatient, recent blood transfusion of 4 units. HISTORY OF PRESENTING ILLNESS: A 67-year-old male with NIDDM, hypertension, ESRD, diabetic neuropathy, severe DJD, was recently admitted to [facility] with anemia, hemoglobin of 6.4, received 4 units of blood transfusion. The patient underwent upper endoscopy. He was advised a capsule endoscopy. He was seen by Hematology. He was recommended to have a bone marrow biopsy. The patient signed out AMA. He was found to have recurrent anemia. His hemoglobin dropped to 6.2 again. The patient was advised to come to the emergency room once again for workup of recurrent severe anemia. Currently, he is lying in bed. He denies any chest pain. He denies any palpitations. He denies any abdominal pain, nausea, vomiting, or diarrhea. PAST MEDICAL AND SURGICAL HISTORY: Unchanged from recent evaluation. FAMILY HISTORY: Unchanged. SOCIAL HISTORY: Unchanged MEDICATIONS: Medications list reviewed. ALLERGIES: NO KNOWN DRUG ALLERGIES. REVIEW OF SYSTEMS: Unremarkable. PHYSICAL EXAMINATION: GENERAL: Elderly male, lying in bed, in no acute distress. VITAL SIGNS: Blood pressure 130/82, heart rate 72, respiratory rate 18, temperature 97.8. HEENT: Normocephalic, atraumatic, positive pallor. NECK: Supple, no JVD. LUNGS: Bilateral equal entry, bilateral equal expansion. CARDIAC: S1 and S2, regular rate and rhythm, no murmur, no rub. ABDOMEN: Obese, distended, soft, nontender, bowel sounds present. EXTREMITIES: No lower extremity edema. LABORATORY DATA: WBC 4.4, hemoglobin 6.7 yesterday, hematocrit 20.5, platelets 137. Sodium 139, potassium 5.8, chloride 103, CO2 of 21, BUN 120, creatinine 10.7, glucose 84, uric acid 8.0, calcium 7.7, phosphorus 8.5. Status post 1 unit of blood transfusion yesterday. CURRENT MEDICATIONS: Apresoline, Colace, amiodarone, Coreg, Feosol, Flomax, Lipitor, Protonix, sevelamer, Tylenol, Zofran, Kayexalate not given this morning. ASSESSMENT: 1. Recurrent severe anemia. 2. Hyperkalemia. 3. End-stage renal disease. 4. Sok-caudbrr-tofchkedm diabetes mellitus. 5. Hypertension. 6. Cardiomyopathy, coronary artery disease, automatic implantable cardioverter-defibrillator. PLAN: 1. Two more units to be transfused on dialysis today. 2. Bone marrow biopsy this admission. 3. GI followup? 4. Monitor hemoglobin and hematocrit. Grecia Young MD
[2018-02-18 04:14] LABS: FRUCTOSAMINE 333 umol/L (190-270)
[2018-02-18 07:15] LABS: BASO # 0.02 K/mm3 (0.0-2.0); BASO % 0.4 % (0.0-3.0); EOS # 0.2 (0.0-0.7); EOS % 4.1 % (1.5-5.0); GRAN # 3.52 (1.4-6.5); HEMOGLOBIN 8.4 g/dL (14.0-18.0); LYMPH # 0.7 (1.2-3.4); LYMPH % 13.9 % (22.0-35.0); MEAN CELL VOLUME 91.1 fl (80.0-105.0); MEAN CORPUSCULAR HEMOGLOBIN 29.8 pg (25.0-35.0); MEAN CORPUSCULAR HGB CONC 32.7 g/dl (31.0-37.0); MEAN PLATELET VOLUME 10.2 fl (7.0-11.0); MONO # 0.3 (0.1-0.6); MONO % 6.6 % (1.0-6.0); RBC 2.82 10^6/uL (3.5-6.1); RED CELL DISTRIBUTION WIDTH 16.9 % (11.5-14.5); WHITE BLOOD COUNT 4.7 10^3/uL (4.5-11.0)
[2018-02-18] MEDS: Insulin Reg-HIGH-Coverage SC SCH ×4 (08:00→23:14)
[2018-02-18 08:11] LABS: ALB/GLOB RATIO 0.9 (1.1-1.8); ALBUMIN 3.3 g/dL (3.0-4.8); BILIRUBIN,DIRECT 0.6 mg/dL (0.0-0.4); CALCIUM 7.7 mg/dL (8.4-10.5)
--- NOTE | 2018-02-18 09:24 | PN ---
DATE: 02/18/2018 SUBJECTIVE: The patient is seen in room 570, bed 2. The patient is sitting up in the bed having breakfast. Overnight nurse's notes were reviewed. The patient received dialysis yesterday. The patient received transfusion on during the dialysis. OBJECTIVE: VITAL SIGNS: The patient denies any bleeding. T-max 97.8, pulse 59, 62, 65, 72, blood pressure 109/74, 105/70, 117/77, 130/82, respirations 18, O2 sat 100%. HEENT: Head: Normocephalic, atraumatic. HEENT examination shows pinkish pale conjunctivae. Anicteric sclerae. No oropharyngeal lesion. No neck rigidity. CHEST: Kyphosis. LUNGS: Positive upper chest ICD noted. Lung examination shows no audible crackle, rales or wheezing. CARDIOVASCULAR: S1, S2. Positive systolic murmur left sternal border, right second intercostal space, left second intercostal space. ABDOMEN: Soft. Positive bowel sounds. No palpable hepatosplenomegaly noted. GENITALIA: Male. RECTAL: Deferred. EXTREMITIES: Shows no pitting edema, no calf tenderness, no Homans' sign. Positive left upper extremity AV fistula noted. MUSCULOSKELETAL: Shows a body mass index of 28. NEUROLOGIC: The patient is alert, awake, oriented x3. Cranial nerves II-XII intact. Gait examination is independent. VASCULAR: Palpable pulses of the lower extremity but decreased. DIAGNOSTICS: On 02/18/2018, WBC 4.7, hemoglobin/hematocrit 8.4, 25.7, platelets 123 which is low normal, granulocytes 75% segs. Sodium 137, potassium 4.9, chloride 102, CO2 of 24, anion gap 17, BUN 890, creatinine 8.4, GFR 8, glucose 91, calcium 7.7, phosphorus 5.6, magnesium 2.0. LFTs are normal. Hepatitis A, B, C serologies are negative. The patient received 3 units of PRBC so far. CT of the chest, abdomen, pelvis reviewed. EKG was reviewed. DIAGNOSES: 1. Severe symptomatic anemia of unknown etiology. 2. Dilated cardiomyopathy with history of nonsustained ventricular tachycardia status post automatic implantable cardioverter defibrillator. 3. End-stage renal disease, hemodialysis dependent 3 times a week. 4. History of well-controlled diabetes mellitus. 5. Transfusion-dependent anemia. 6. Possible anemia of chronic disease. 7. Benign esophageal squamous papilloma. 8. Cecal arteriovenous malformation and sigmoid diverticulosis and internal hemorrhoid. 9. History of fyf-ptybost-qbanaaeue diabetes mellitus, history of diabetic neuropathy, history of severe degenerative joint disease. 10. Bilateral upper extremity flexion contractures. 11. History of signing out against medical advise. 12. Persistent refractory transfusion requiring independent anemia. 13. Non-hemolyzed hyperkalemia. 14. Dilated cardiomyopathy. 15. Ascites. 16. Prostatomegaly. 17. L5-S1 disc bulge and degenerative disc disease. 18. Right axis deviation. 19. Relative thrombocytopenia with low normal platelet count. 20. Granulocytosis. 21. Hyperphosphatemia and secondary hyperparathyroidism. 22. History of diabetic foot disease. 23. History of hypertension. 24. Constipation. 25. History of nonsustained ventricular tachycardia. 26. History of hyperlipidemia. 1. Severe symptomatic anemia, etiology unclear. 2. Status post packed red blood cell transfusion x1. 3. Questionable anemia of chronic disease. 4. Non-hemolyzed hyperkalemia. 5. End-stage renal disease, hemodialysis dependent 3 times a week via the left upper extremity arteriovenous fistula. 6. Hyperphosphatemia and secondary hyperparathyroidism. 7. Right axis deviation. 8. Hypertension. 9. History of nonsustained ventricular tachycardia. 10. History of cardiomyopathy and congestive heart failure. 11. Status post automatic implantable cardioverter defibrillator implant. 12. Diabetes mellitus. 13. Dilated cardiomyopathy. 14. History of poor compliance. 15. Bilateral upper extremity flexion contractures. 16. Relative borderline thrombocytopenia. 17. History of noncompliance and history of signing out against medical advise. 18. History of peripheral vascular disease. 19. History of diabetic foot ulceration and diabetic foot disease. 20. History of recurrent anemia. 21. History of colonoscopy, reported negative by the patient's nurses, history of esophagogastroduodenoscopy. 1. Severe symptomatic anemia with decreasing hemoglobin to 6 g. 2. Generalized weakness and fatigue. 3. Lightheadedness. 4. End-stage renal disease, hemodialysis dependent since January 2017. 5. Hypotension. 6. History of severe symptomatic anemia with a decreasing hemoglobin of 6.7. 7. Borderline hyperkalemia. 8. History of congestive heart failure, cardiomyopathy and automatic implantable cardioverter defibrillator implant. 9. Right axis deviation. 10. History of cardiomyopathy with automatic implantable cardioverter defibrillator implant. 11. History of diabetes mellitus for 20 years. 12. Hypertension. 13. History of anemia according to the patient recently diagnosed 2 months ago. 14. History of status post multiple packed red blood cell transfusions. 15. History of negative colonoscopy. 16. History of left foot osteomyelitis and abscess. 17. History of left upper extremity arteriovenous fistula. 18. Cardiomegaly. 19. History of automatic implantable cardioverter defibrillator, history of type 2 diabetes mellitus, history of multiple blood transfusions. 20. History of elevated erythrocyte sedimentation rate. 21. Elevated prostate-specific antigen of 6.4. 22. Stool for occult blood positive. 23. History of free kappa monoclonal free light chain present. 24. 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 25. Left foot Escherichia coli, coagulase-negative Staphylococcus and Corynebacterium, left diabetic foot ulceration and Serratia marcescens diabetic foot ulceration. 26. End-stage renal disease, hemodialysis dependent 3 times a week via the left upper extremity arteriovenous fistula. 27. Peripheral vascular disease with abnormal left ankle brachial index at rest and history of left iliac/common femoral artery occlusive disease. 28. History of signing out against medical advice. 29. Ascites. 30. Urinary bladder wall thickening. 31. Left and right foot cellulitis. 32. Gallbladder wall thickening. 33. Splenomegaly. 34. Abdominal ascites. 35. Status post paracentesis of 5.8 liters. 36. Peripheral vascular disease. 37. Hepatomegaly. 38. Cholelithiasis. 39. Nodular hepatic contour. 40. Pancreatic fatty atrophy. 41. History of bilateral adrenal gland hypertrophy. 42. Distended urinary bladder. 43. Prostatomegaly. 44. Perihepatic perisplenic ascites. 45. Degenerative joint disease. 46. Status post esophagogastroduodenoscopy and colonoscopy. 47. History of paracentesis. 48. Cardiomyopathy with left ventricular ejection fraction of 22%. 49. Pulmonary hypertension with right ventricular systolic pressure of 50 mmHg. 50. Concentric left ventricular hypertrophy. 51. Severely impaired left ventricular systolic function. 52. Left ventricular global hypokinesis. 53. Severely reduced right ventricular systolic function and moderately dilated right ventricle. 54. Moderately dilated left atrium. 55. Moderately thickened aortic valve. 56. Moderate mitral regurgitation. 57. Moderate pulmonary hypertension with elevated right ventricular systolic pressure of 50 mmHg. 58. 59. History of right foot cellulitis. 60. Left foot metatarsal joint cellulitis. 61. Systolic congestive heart failure. 62. History of nonsustained ventricular tachycardia. 63. History of sleep apnea. 64. History of noncompliance. 65. Urinary retention with marked postvoid residual. PLAN AT THIS TIME: The patient has been ordered transfusion of 2 units of PRBC today. The patient has been ordered repeat labs. The patient has been consulted with Dr. Kamari Mohan for evaluation for scheduling bone marrow biopsy which the patient was supposed to. Consult with Dr. Kamari Mohan has been ordered. At present, the patient is proceeding for dialysis today because persistent elevation of BUN, creatinine, the patient was seen by handle bender, left foot x-ray were ordered which will be reviewed. Current consultation Nephrology, Podiatry, Gastroenterology and Interventional Radiology. CURRENT MEDICATIONS: Hydralazine 10 mg three times a day, Colace 100 mg three times a day, amiodarone 200 mg daily, Coreg 6.25 twice daily, ferrous sulfate 3-324 mg three times a day, Flomax 0.4 mg daily, insulin sliding scale coverage, Lipitor 40 mg daily, Nephro-Tyson 1 tablet daily, Protonix 40 mg IV every 12 hours, Tylenol daily 650 p.r.n., Zofran 4 mg IV every four hours p.r.n. The patient is on renal diet, ALFREDO stockings, SCDs, physical therapy, occupational therapy all ordered. At present, the patient has been seen and examined and updated about his condition, diagnosis, which he acknowledged and understand. The patient's soluble transferrin receptor antibody, erythropoietin, HIV is pending. At present, the patient's further management will be dependent upon the patient's clinical condition, hemodynamic status and as per recommendation by all the physician involved in the care of the patient. Dictated and electronically signed, not read. Geoffrey Thacker MD MTDD
--- NOTE | 2018-02-18 09:31 | RAD ---
Date of service: 02/17/2018 PROCEDURE: Left Foot Radiographs. HISTORY: left 1st MPJ wound COMPARISON: 02/07/2018 FINDINGS: BONES: No evidence of osteomyelitis JOINTS: Degenerative changes in the 1st MTP joint. 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 SOFT TISSUES: Normal. OTHER FINDINGS: None. IMPRESSION: No evidence of osteomyelitis
--- NOTE | 2018-02-18 11:10 | CP.PCM.PN ---
Subjective - Date & Time of Evaluation Date of Evaluation: 02/18/18 Time of Evaluation: 11:08 - Subjective Subjective: Gastroenterology Fellow/PGY6 Progress Note Patient feels well. Notes light brown bowel movement this morning. Tolerated diet. A 12-point review of systems negative except for as above. Objective - Vital Signs/Intake and Output Vital Signs (last 24 hours): Temp Pulse Resp BP Pulse Ox 97.5 F L 59 L 18 109/74 100 02/18/18 06:00 02/18/18 06:00 02/18/18 06:00 02/18/18 06:00 02/18/18 06:00 Intake and Output: 02/18/18 02/18/18 06:59 18:59 Intake Total 180 Balance 180 - Medications Medications: Current Medications Acetaminophen (Tylenol 325mg Tab) 650 mg PO Q6 PRN PRN Reason: TEMP>=99.5F Acetaminophen (Tylenol 650 Mg Supp) 650 mg RC Q6H PRN PRN Reason: TEMP>=99.5F Amiodarone HCl (Cordarone) 200 mg PO DAILY [facility] Last Admin: 02/17/18 13:58 Dose: 200 mg Atorvastatin Calcium (Lipitor) 40 mg PO DIN [facility] Last Admin: 02/17/18 17:11 Dose: 40 mg Carvedilol (Coreg) 6.25 mg PO BID [facility] Last Admin: 02/17/18 17:11 Dose: 6.25 mg Docusate Sodium (Colace) 100 mg PO TID [facility] Last Admin: 02/18/18 09:05 Dose: Not Given Ferrous Sulfate (Feosol) 324 mg PO TID [facility] Last Admin: 02/18/18 09:05 Dose: Not Given Hydralazine HCl (Apresoline) 10 mg PO TID [facility] Last Admin: 02/18/18 09:05 Dose: Not Given Insulin Human Regular (Humulin R High) 0 units SC [facility]; Protocol Last Admin: 02/18/18 08:00 Dose: Not Given Non-Formulary Medication (Sevelamer Carbonate [Renvela]) 1 tab PO BID [facility] Ondansetron HCl (Zofran Inj) 4 mg IVP Q4H PRN PRN Reason: Nausea/Vomiting Pantoprazole Sodium (Protonix Inj) 40 mg IVP Q12 [facility] Last Admin: 02/17/18 21:20 Dose: 40 mg Tamsulosin HCl (Flomax) 0.4 mg PO DAILY [facility] Last Admin: 02/17/18 13:58 Dose: 0.4 mg Vitamin B Complex/Vit C/Folic Acid (Nephro-Tyson) 1 tab PO DAILY [facility] Last Admin: 02/17/18 13:57 Dose: 1 tab - Labs Labs: 02/18/18 06:50 02/18/18 06:50 - Constitutional Appears: Non-toxic, No Acute Distress - Head Exam Head Exam: ATRAUMATIC, NORMOCEPHALIC - Eye Exam Eye Exam: EOMI, PERRL. absent: Scleral icterus Pupil Exam: PERRL. absent: Miosis, Mydriatic - ENT Exam ENT Exam: Mucous Membranes Moist, Normal Oropharynx - Neck Exam Neck Exam: Full ROM, Normal Inspection - Respiratory Exam Respiratory Exam: Clear to Ausculation Bilateral. absent: Rales, Rhonchi, Wheezes - Cardiovascular Exam Cardiovascular Exam: RRR, +S1, +S2. absent: Gallop, Rubs - GI/Abdominal Exam GI & Abdominal Exam: Soft, Normal Bowel Sounds. absent: Distended, Firm, Guarding, Rigid, Tenderness, Organomegaly, Rebound - Extremities Exam Extremities Exam: Normal Inspection. absent: Pedal Edema - Neurological Exam Neurological Exam: Alert, Awake - Psychiatric Exam Psychiatric exam: Normal Affect, Normal Mood - Skin Skin Exam: Dry, Intact, Normal Color, Warm Assessment and Plan - Assessment and Plan (Free Text) Assessment: 67 year old male with PMH of dilated cardiomyopathy (EF 22%) s/p defibrillator, ESRD on HD MWF, HTN, Diabetes, and anemia requiring transfusion presenting with low hemoglobin from dialysis center. Active treatment of acute on chronic anemia requiring transfusion. Recently hospitalized for severe anemia requiring 4 units of pRBC transfusion, left AMA on 02/08,with plan for outpatient bone marrow biopsy. 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 pylori negative gastritis, and normal duodenal biopsies. Dr. 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 Plan: -Hematology managing- bone marrow biopsy today -receiving three Units pRBCs transfusion with dialysis -on PPI BID -will benefit from outpatient capsule endoscopy for small bowel evaluation for AVMs and/or other pathology for potential GI source of anemia
--- NOTE | 2018-02-18 11:57 | CP.PCM.CON ---
<Ck Doty - Last Filed: 02/18/18 12:37> History of Present Illness - History of Present Illness History of Present Illness: Ck Soren- Internal Medicine Resident- Hematology/Oncology Consult Note CC: Anemia on Lab work HPI: Patient is a 67 year male with past medical history HTN, T2DM, ESRD on HD, CHF, arthritis who was admitted for evaluation and treatment of anemia found on labwork. Patient seen and examined at bedside. Offers no new complaints at this time. Denies fevers, chills, headache, dizziness, nausea, vomiting, chest pain, shortness of breath, abdominal pain, diarrhea, constipation. 12 Point ROS negative except as indicated in HPI PMH: HTN, T2DM, ESRD on HD, CHF, CHF, arthritis PSH: defibrillator, left foot I&D of abscess SHx: has 2 alcoholic drinks/month, occasional cigar, denies illicit drug use FHx: mother (T2DM) Allergies: NKDA PMD: Dr. Mariann Alvarado Design/Animation Instructor: Dr. Young Physical Examination: - Constitutional Appears: Non-toxic, No Acute Distress - Head Exam Head Exam: ATRAUMATIC, NORMOCEPHALIC - Eye Exam Eye Exam: EOMI, Normal appearance, PERRL - ENT Exam ENT Exam: Mucous Membranes Moist, Normal Exam - Neck Exam Neck exam: Positive for: Normal Inspection. Negative for: Lymphadenopathy, Tenderness, Thyromegaly - Respiratory Exam Respiratory Exam: Clear to Auscultation Bilateral, NORMAL BREATHING PATTERN. absent: Accessory Muscle Use, Rales, Rhonchi, Wheezes, Respiratory Distress, Stridor - Cardiovascular Exam Cardiovascular Exam: REGULAR RHYTHM, +S1, +S2. absent: Systolic Murmur - GI/Abdominal Exam GI & Abdominal Exam: Normal Bowel Sounds, Soft. absent: Distended, Firm, Mass, Rebound, Rigid, Tenderness - Extremities Exam Extremities exam: Positive for: normal capillary refill, pedal pulses present. Negative for: pedal edema - Neurological Exam Neurological exam: Alert, CN II-XII Intact, Oriented x3 - Psychiatric Exam Psychiatric exam: Normal Affect, Normal Mood - Skin Skin Exam: Dry, Normal Color, Warm Assessment and Plan: Patient is a 67 year old male with ESRD on HD sent to ER for low Hgb. Hematology was consulted for management of anemia. Anemia - normocytic - GI consulted- appreciate recs- outpatient capsule endoscopy for small bowel evaluation for AVMs and/or other pathology - previous EGD- esophageal polyp found, gastritis - H and H stable ~8.4 s/p 3units pRBCs - Bone marrow biopsy today Patient case reviewed and plan approved by attending physician, Dr. Bermudez. Past Patient History - Infectious Disease Hx of Infectious Diseases: None - Past Social History Smoking Status: Never Smoked - CARDIAC Hx Cardiac Disorders: Yes Hx Congestive Heart Failure: Yes (B/L LL +3 edema) Hx Hypertension: Yes Hx Internal Defibrillator: Yes - PULMONARY Hx Respiratory Disorders: No - NEUROLOGICAL Hx Neurological Disorder: No - HEENT Hx HEENT Problems: No - RENAL Hx Chronic Kidney Disease: Yes (LEFT FOREARM SHUNT) Hx Dialysis: Yes Date of Last Dialysis Treatment: 02/14/18 Hx Renal Failure: Yes - ENDOCRINE/METABOLIC Hx Endocrine Disorders: Yes Hx Diabetes Mellitus Type 2: Yes - HEMATOLOGICAL/ONCOLOGICAL Hx Blood Disorders: Yes Hx Anemia: Yes (BLOOD TRANSFUSION) - INTEGUMENTARY Hx Dermatological Problems: Yes Other/Comment: 02-16-18 BILATERAL LEG EDEMA +3 PITTING - MUSCULOSKELETAL/RHEUMATOLOGICAL Hx Musculoskeletal Disorders: Yes Hx Falls: Yes Hx Unsteady Gait: Yes (ROLLATOR) - GASTROINTESTINAL Hx Gastrointestinal Disorders: Yes (CONSTIPATION) - GENITOURINARY/GYNECOLOGICAL Hx Genitourinary Disorders: Yes (ANURIA) - PSYCHIATRIC Hx Psychophysiologic Disorder: No Hx Substance Use: No - SURGICAL HISTORY Hx Surgeries: Yes Other/Comment: L AV shunt - ANESTHESIA Hx Anesthesia: Yes Hx Anesthesia Reactions: No Hx Malignant Hyperthermia: No Meds Home Medications: Home Medication List Medication Instructions Recorded Confirmed Type RX: Carvedilol [Coreg] 6.25 mg PO BID #30 tab 02/17/18 Rx RX: Docusate [Colace] 100 mg PO TID #30 cap 02/17/18 Rx RX: hydrALAZINE [Apresoline] 10 mg PO TID tab 02/17/18 Rx Allergies/Adverse Reactions: Allergies Allergy/AdvReac Type Severity Reaction Status Date / Time No Known Allergies Allergy Verified 02/16/18 16:42 - Medications Medications: Current Medications Acetaminophen (Tylenol 325mg Tab) 650 mg PO Q6 PRN PRN Reason: TEMP>=99.5F Acetaminophen (Tylenol 650 Mg Supp) 650 mg RC Q6H PRN PRN Reason: TEMP>=99.5F Amiodarone HCl (Cordarone) 200 mg PO DAILY [facility] Last Admin: 02/17/18 13:58 Dose: 200 mg Atorvastatin Calcium (Lipitor) 40 mg PO DIN [facility] Last Admin: 02/17/18 17:11 Dose: 40 mg Carvedilol (Coreg) 6.25 mg PO BID [facility] Last Admin: 02/17/18 17:11 Dose: 6.25 mg Docusate Sodium (Colace) 100 mg PO TID [facility] Last Admin: 02/18/18 09:05 Dose: Not Given Ferrous Sulfate (Feosol) 324 mg PO TID [facility] Last Admin: 02/18/18 09:05 Dose: Not Given Hydralazine HCl (Apresoline) 10 mg PO TID [facility] Last Admin: 02/18/18 09:05 Dose: Not Given Insulin Human Regular (Humulin R High) 0 units SC [facility]; Protocol Last Admin: 02/18/18 08:00 Dose: Not Given Non-Formulary Medication (Sevelamer Carbonate [Renvela]) 1 tab PO BID [facility] Ondansetron HCl (Zofran Inj) 4 mg IVP Q4H PRN PRN Reason: Nausea/Vomiting Pantoprazole Sodium (Protonix Inj) 40 mg IVP Q12 [facility] Last Admin: 02/17/18 21:20 Dose: 40 mg Tamsulosin HCl (Flomax) 0.4 mg PO DAILY [facility] Last Admin: 02/17/18 13:58 Dose: 0.4 mg Vitamin B Complex/Vit C/Folic Acid (Nephro-Tyson) 1 tab PO DAILY [facility] Last Admin: 02/17/18 13:57 Dose: 1 tab Results - Vital Signs Recent Vital Signs: Last Vital Signs Temp 97.5 F L 02/18/18 06:00 Pulse 59 L 02/18/18 06:00 Resp 18 02/18/18 06:00 BP 109/74 02/18/18 06:00 Pulse Ox 100 02/18/18 06:00 - Labs Result Diagrams: 02/18/18 06:50 02/18/18 06:50 Labs: Laboratory Results - last 24 hr 02/16/18 02/16/18 02/16/18 13:00 13:00 14:30 WBC RBC Hgb Hct MCV MCH MCHC RDW Plt Count MPV Gran % Lymph % (Auto) [place] % (Auto) Eos % (Auto) Baso % (Auto) Gran # Lymph # (Auto) [place] # (Auto) Eos # (Auto) Baso # (Auto) Sodium Potassium Chloride Carbon Dioxide Anion Gap BUN Creatinine Est GFR ( Amer) Est GFR (Non-Af Amer) POC Glucose (mg/dL) Random Glucose Hemoglobin A1c 5.6 Fructosamine Calcium Phosphorus Magnesium Erythropoietin 59.0 H Total Bilirubin Direct Bilirubin AST ALT Alkaline Phosphatase Total Protein Albumin Globulin Albumin/Globulin Ratio Blood Type A POSITIVE Antibody Screen Negative Crossmatch See Detail BBK History Checked Patient has bt 02/17/18 02/17/18 02/17/18 06:00 15:58 21:40 WBC RBC Hgb Hct MCV MCH MCHC RDW Plt Count MPV Gran % Lymph % (Auto) [place] % (Auto) Eos % (Auto) Baso % (Auto) Gran # Lymph # (Auto) [place] # (Auto) Eos # (Auto) Baso # (Auto) Sodium Potassium Chloride Carbon Dioxide Anion Gap BUN Creatinine Est GFR ( Amer) Est GFR (Non-Af Amer) POC Glucose (mg/dL) 112 H 110 Random Glucose Hemoglobin A1c Fructosamine 333 H Calcium Phosphorus Magnesium Erythropoietin Total Bilirubin Direct Bilirubin AST ALT Alkaline Phosphatase Total Protein Albumin Globulin Albumin/Globulin Ratio Blood Type Antibody Screen Crossmatch BBK History Checked 02/18/18 02/18/18 02/18/18 06:33 06:50 06:50 WBC 4.7 RBC 2.82 L Hgb 8.4 L Hct 25.7 L MCV 91.1 MCH 29.8 MCHC 32.7 RDW 16.9 H Plt Count 123 MPV 10.2 Gran % 75.0 H Lymph % (Auto) 13.9 L [place] % (Auto) 6.6 H Eos % (Auto) 4.1 Baso % (Auto) 0.4 Gran # 3.52 Lymph # (Auto) 0.7 L [place] # (Auto) 0.3 Eos # (Auto) 0.2 Baso # (Auto) 0.02 Sodium 137 Potassium 4.9 Chloride 102 Carbon Dioxide 24 Anion Gap 17 BUN 90 H Creatinine 8.4 H* D Est GFR ( Amer) 8 Est GFR (Non-Af Amer) 6 POC Glucose (mg/dL) 79 Random Glucose 91 Hemoglobin A1c Fructosamine Calcium 7.7 L Phosphorus 5.6 H Magnesium 2.0 Erythropoietin Total Bilirubin 0.6 Direct Bilirubin 0.6 H AST 28 ALT 31 Alkaline Phosphatase 122 Total Protein 7.1 Albumin 3.3 Globulin 3.7 Albumin/Globulin Ratio 0.9 L Blood Type Antibody Screen Crossmatch BBK History Checked <Ben Bermudezsamantha P - Last Filed: 02/18/18 19:22> Meds - Medications Medications: Current Medications Acetaminophen (Tylenol 325mg Tab) 650 mg PO Q6 PRN PRN Reason: TEMP>=99.5F Acetaminophen (Tylenol 650 Mg Supp) 650 mg RC Q6H PRN PRN Reason: TEMP>=99.5F Amiodarone HCl (Cordarone) 200 mg PO DAILY [facility] Last Admin: 02/17/18 13:58 Dose: 200 mg Atorvastatin Calcium (Lipitor) 40 mg PO DIN [facility] Last Admin: 02/17/18 17:11 Dose: 40 mg Carvedilol (Coreg) 6.25 mg PO BID [facility] Last Admin: 02/18/18 10:00 Dose: Not Given Docusate Sodium (Colace) 100 mg PO TID [facility] Last Admin: 02/18/18 14:00 Dose: Not Given Ferrous Sulfate (Feosol) 324 mg PO TID [facility] Last Admin: 02/18/18 14:00 Dose: Not Given Hydralazine HCl (Apresoline) 10 mg PO TID [facility] Last Admin: 02/18/18 14:00 Dose: Not Given Insulin Human Regular (Humulin R High) 0 units SC [facility]; Protocol Last Admin: 02/18/18 17:00 Dose: Not Given Ondansetron HCl (Zofran Inj) 4 mg IVP Q4H PRN PRN Reason: Nausea/Vomiting Pantoprazole Sodium (Protonix Inj) 40 mg IVP Q12 [facility] Last Admin: 02/17/18 21:20 Dose: 40 mg Sevelamer HCl (Renagel) 800 mg PO BID [facility] Last Admin: 02/18/18 10:00 Dose: Not Given Tamsulosin HCl (Flomax) 0.4 mg PO DAILY [facility] Last Admin: 02/17/18 13:58 Dose: 0.4 mg Vitamin B Complex/Vit C/Folic Acid (Nephro-Tyson) 1 tab PO DAILY [facility] Last Admin: 02/17/18 13:57 Dose: 1 tab Results - Vital Signs Recent Vital Signs: Last Vital Signs Temp 97.6 F 02/18/18 19:02 Pulse 58 L 02/18/18 19:02 Resp 14 02/18/18 19:02 BP 107/69 02/18/18 19:02 Pulse Ox 100 02/18/18 19:02 - Labs Result Diagrams: 02/18/18 06:50 02/18/18 06:50 Labs: Laboratory Results - last 24 hr 02/16/18 02/16/18 02/17/18 13:00 14:30 06:00 WBC RBC Hgb Hct MCV MCH MCHC RDW Plt Count MPV Gran % Lymph % (Auto) [place] % (Auto) Eos % (Auto) Baso % (Auto) Gran # Lymph # (Auto) [place] # (Auto) Eos # (Auto) Baso # (Auto) Sodium Potassium Chloride Carbon Dioxide Anion Gap BUN Creatinine Est GFR ( Amer) Est GFR (Non-Af Amer) POC Glucose (mg/dL) Random Glucose Fructosamine Calcium Phosphorus Magnesium Erythropoietin 59.0 H Total Bilirubin Direct Bilirubin AST ALT Alkaline Phosphatase Total Protein Albumin Globulin Albumin/Globulin Ratio PTH Intact Whole Molec 382 H Blood Type A POSITIVE Antibody Screen Negative Crossmatch See Detail BBK History Checked Patient has bt 02/17/18 02/17/18 02/18/18 06:00 21:40 06:33 WBC RBC Hgb Hct MCV MCH MCHC RDW Plt Count MPV Gran % Lymph % (Auto) [place] % (Auto) Eos % (Auto) Baso % (Auto) Gran # Lymph # (Auto) [place] # (Auto) Eos # (Auto) Baso # (Auto) Sodium Potassium Chloride Carbon Dioxide Anion Gap BUN Creatinine Est GFR ( Amer) Est GFR (Non-Af Amer) POC Glucose (mg/dL) 110 79 Random Glucose Fructosamine 333 H Calcium Phosphorus Magnesium Erythropoietin Total Bilirubin Direct Bilirubin AST ALT Alkaline Phosphatase Total Protein Albumin Globulin Albumin/Globulin Ratio PTH Intact Whole Molec Blood Type Antibody Screen Crossmatch BBK History Checked 02/18/18 02/18/18 02/18/18 06:50 06:50 16:04 WBC 4.7 RBC 2.82 L Hgb 8.4 L Hct 25.7 L MCV 91.1 MCH 29.8 MCHC 32.7 RDW 16.9 H Plt Count 123 MPV 10.2 Gran % 75.0 H Lymph % (Auto) 13.9 L [place] % (Auto) 6.6 H Eos % (Auto) 4.1 Baso % (Auto) 0.4 Gran # 3.52 Lymph # (Auto) 0.7 L [place] # (Auto) 0.3 Eos # (Auto) 0.2 Baso # (Auto) 0.02 Sodium 137 Potassium 4.9 Chloride 102 Carbon Dioxide 24 Anion Gap 17 BUN 90 H Creatinine 8.4 H* D Est GFR ( Amer) 8 Est GFR (Non-Af Amer) 6 POC Glucose (mg/dL) 91 Random Glucose 91 Fructosamine Calcium 7.7 L Phosphorus 5.6 H Magnesium 2.0 Erythropoietin Total Bilirubin 0.6 Direct Bilirubin 0.6 H AST 28 ALT 31 Alkaline Phosphatase 122 Total Protein 7.1 Albumin 3.3 Globulin 3.7 Albumin/Globulin Ratio 0.9 L PTH Intact Whole Molec Blood Type Antibody Screen Crossmatch BBK History Checked Attending/Attestation - Attestation I have personally seen and examined this patient.: Yes I have fully participated in the care of the patient.: Yes I have reviewed all pertinent clinical information: Yes
--- NOTE | 2018-02-18 15:05 | PN ---
DATE: 02/18/2018 SUBJECTIVE: The patient is seen in the dialysis unit. He is awake, he is alert, he is comfortable. He denies any chest pain. Denies any palpitations. PHYSICAL EXAMINATION: GENERAL: Elderly male lying in bed. VITAL SIGNS: Blood pressure 109/74, heart rate 59, respiratory rate 18, temperature 97.5. HEENT: Normocephalic, atraumatic, positive pallor. NECK: Supple, no JVD. LUNGS: Bilateral equal air entry, bilateral equal expansion. CARDIAC: S1, S2, regular rate and rhythm. No murmur, no rub. ABDOMEN: Soft, nondistended, nontender. Bowel sounds present. EXTREMITIES: No lower extremity edema. Intake and output not charted. LABORATORY DATA: WBC 4.7, hemoglobin 8.4, hematocrit 26, platelets 123. Sodium 137, potassium 4.9, chloride of 109, CO2 of 24, BUN 90, creatinine 8.4, glucose 91, calcium 7.7, phosphorus is 5.6. ASSESSMENT: 1. Recurrent severe anemia status post endoscopy which was nondiagnostic. 2. End-stage renal disease. 3. Thm-[id number] diabetes mellitus. 4. Hypertension. 5. Congestive heart failure, cardiomyopathy. PLAN: 1. Stable dialysis. 2. To get 2 more units of PRBCs today as per PMD. 3. For bone marrow biopsy today. 4. Discharge post biopsy today? Grecia Young MD
[2018-02-18] MEDS ORDERED: Midazolam 2 MG/2 ML VIAL ONE (17:07)
[2018-02-18] MEDS ORDERED: Lidocaine 1% Inj (20ml) ONE (17:08)
[2018-02-18] MEDS ORDERED: Midazolam 2 MG/2 ML VIAL IVP ONE (17:50)
--- NOTE | 2018-02-18 18:47 | CT ---
PROCEDURE: CT guided pelvic bone marrow aspiration and biopsy HISTORY: End-stage renal disease. Multiple recent transfusions. No documented GI bleeding. Evaluate for myelodysplasia PHYSICIAN(S): Kamari Mohan MD. TECHNIQUE: The relative risks and indications of the procedure were explained to the patient and consent obtained. The patient was placed prone on the CT scanner and preliminary images through the pelvis obtained. Conscious sedation and monitoring were provided throughout the procedure by a nurse. The right posterior superior iliac spine was selected for biopsy. The areas prepped and draped usual sterile fashion. 1 percent xylocaine was used to anesthetize the skin soft tissues and periosteum. And on control needle was advanced into the right posterior superior iliac spine and its position confirmed with CT. The needle was advanced through the cortex and a bone marrow aspiration performed. Next a single long core biopsy was performed with the on control needle. The slides were prepared by Dr. Bob. The patient tolerated the procedure well IMPRESSION: 1. CT-guided pelvic bone marrow aspiration and biopsy as described above.
[2018-02-18] MEDS: Multivitamin Vitamin B Complex (Nephro-Vite) Tab PO SCH (19:43)
[2018-02-19 06:22] VITALS: RESP 18; TEMP 97.7; O2SAT 99
[2018-02-19 07:05] LABS: ALB/GLOB RATIO 0.9 (1.1-1.8); ALBUMIN 3.5 g/dL (3.0-4.8); CALCIUM 7.8 mg/dL (8.4-10.5)
[2018-02-19 07:48] LABS: BASO # 0.02 K/mm3 (0.0-2.0); BASO % 0.4 % (0.0-3.0); EOS # 0.2 (0.0-0.7); EOS % 3.1 % (1.5-5.0); GRAN # 3.95 (1.4-6.5); GRAN % 80.6 % (50.0-68.0); HEMOGLOBIN 9.6 g/dL (14.0-18.0); LYMPH # 0.4 (1.2-3.4); LYMPH % 7.3 % (22.0-35.0); MEAN CORPUSCULAR HEMOGLOBIN 30.4 pg (25.0-35.0); MEAN CORPUSCULAR HGB CONC 32.3 g/dl (31.0-37.0); MEAN PLATELET VOLUME 10.9 fl (7.0-11.0); MONO # 0.4 (0.1-0.6); MONO % 8.6 % (1.0-6.0); RBC 3.16 10^6/uL (3.5-6.1); RED CELL DISTRIBUTION WIDTH 16.8 % (11.5-14.5); WHITE BLOOD COUNT 4.9 10^3/uL (4.5-11.0)
[2018-02-19] MEDS: Insulin Reg-HIGH-Coverage SC SCH (08:00)
--- NOTE | 2018-02-19 09:24 | CP.PCM.PN ---
<Dayne Garg - Last Filed: 02/19/18 09:20> Subjective - Date & Time of Evaluation Date of Evaluation: 02/19/18 Time of Evaluation: 09:20 - Subjective Subjective: Podiatry progress note for Dr. Amos 67M seen at bedside with Dr. Amos. Resting comfortably. Denies pain or discomfort to foot or first digit wound. Denies any other pedal complaints. States he is going home today. Denies N/V/F/C/SOB/CP. Objective - Vital Signs/Intake and Output Vital Signs (last 24 hours): Temp Pulse Resp BP Pulse Ox 97.7 F 60 18 117/76 99 02/19/18 08:04 02/19/18 08:04 02/19/18 08:04 02/19/18 08:04 02/19/18 08:04 Intake and Output: 02/19/18 02/19/18 06:59 18:59 Intake Total 130 Balance 130 - Medications Medications: Current Medications Acetaminophen (Tylenol 325mg Tab) 650 mg PO Q6 PRN PRN Reason: TEMP>=99.5F Acetaminophen (Tylenol 650 Mg Supp) 650 mg RC Q6H PRN PRN Reason: TEMP>=99.5F Amiodarone HCl (Cordarone) 200 mg PO DAILY [facility] Last Admin: 02/18/18 19:43 Dose: 200 mg Atorvastatin Calcium (Lipitor) 40 mg PO DIN [facility] Last Admin: 02/18/18 19:43 Dose: 40 mg Carvedilol (Coreg) 6.25 mg PO BID [facility] Last Admin: 02/18/18 19:44 Dose: 6.25 mg Docusate Sodium (Colace) 100 mg PO TID [facility] Last Admin: 02/18/18 19:44 Dose: Not Given Ferrous Sulfate (Feosol) 324 mg PO TID [facility] Last Admin: 02/18/18 19:45 Dose: 324 mg Hydralazine HCl (Apresoline) 10 mg PO TID [facility] Last Admin: 02/18/18 19:43 Dose: 10 mg Insulin Human Regular (Humulin R High) 0 units [facility]; Protocol Last Admin: 02/18/18 23:14 Dose: Not Given Ondansetron HCl (Zofran Inj) 4 mg IVP Q4H PRN PRN Reason: Nausea/Vomiting Pantoprazole Sodium (Protonix Inj) 40 mg IVP Q12 [facility] Last Admin: 02/18/18 23:15 Dose: 40 mg Sevelamer HCl (Renagel) 800 mg PO BID [facility] Last Admin: 02/18/18 19:45 Dose: 800 mg Tamsulosin HCl (Flomax) 0.4 mg PO DAILY [facility] Last Admin: 02/18/18 19:43 Dose: 0.4 mg Vitamin B Complex/Vit C/Folic Acid (Nephro-Tyson) 1 tab PO DAILY [facility] Last Admin: 02/18/18 19:43 Dose: 1 tab - Labs Labs: 02/19/18 06:30 02/19/18 06:30 - Constitutional Appears: Well, Non-toxic, No Acute Distress - Head Exam Head Exam: ATRAUMATIC, NORMOCEPHALIC - Extremities Exam Additional comments: VASC: DP and PT faintly palpable, CFT less than 3 seconds X 10, no edema, TG warm to warm within normal limits NEURO: grossly intact DERM: 3 cm X 3 cm wound at the dorso-medial aspect of hte left 1st MTPJ, 100% hyper-granular wound base noted, minimal sanguinous drainage noted with active bleeding upon debridement, minimal erythema left 1st mPTJ tanner-wound, no malodor, no probe to bone, no tunneling or tracking ORTHO: HAV deformities noted bilaterally, MSK 5/5 bilaterally, no posterior calf pain noted - Neurological Exam Neurological Exam: Alert, Awake, Oriented x3 - Psychiatric Exam Psychiatric exam: Normal Affect, Normal Mood Assessment and Plan - Assessment and Plan (Free Text) Assessment: 67M seen and evaluated for hypergranular wound to the left 1st MTPJ Plan: Patient seen and evaluated with Dr. Amos Afebrile, absent leukocytosis Wound Culture from 02/05: E.coli, Coag Neg Staph, Corneybacterium species MATTHEW/PVR: normal to the R side, mild-borderline PAD on the left Hypergranular wound base sharply debrided with sterile scissor, bleeding appreciated, patient tolerated procedure without incident Wound cleansed with sterile saline, dressed with adaptic, maxorb, and DSD Left foot x-ray - no evidence of acute osteomyelitis Podiatry will continue to follow patient while in house <Kurtis Amos - Last Filed: 02/19/18 11:42> Objective - Vital Signs/Intake and Output Vital Signs (last 24 hours): Temp Pulse Resp BP Pulse Ox 97.7 F 63 18 119/73 99 02/19/18 08:04 02/19/18 10:19 02/19/18 08:04 02/19/18 10:19 02/19/18 08:04 Intake and Output: 02/19/18 02/19/18 06:59 18:59 Intake Total 130 Balance 130 - Medications Medications: Current Medications Acetaminophen (Tylenol 325mg Tab) 650 mg PO Q6 PRN PRN Reason: TEMP>=99.5F Acetaminophen (Tylenol 650 Mg Supp) 650 mg RC Q6H PRN PRN Reason: TEMP>=99.5F Amiodarone HCl (Cordarone) 200 mg PO DAILY [facility] Last Admin: 02/19/18 10:18 Dose: 200 mg Atorvastatin Calcium (Lipitor) 40 mg PO DIN [facility] Last Admin: 02/18/18 19:43 Dose: 40 mg Carvedilol (Coreg) 6.25 mg PO BID [facility] Last Admin: 02/19/18 10:19 Dose: 6.25 mg Docusate Sodium (Colace) 100 mg PO TID [facility] Last Admin: 02/19/18 10:18 Dose: 100 mg Ferrous Sulfate (Feosol) 324 mg PO TID [facility] Last Admin: 02/19/18 10:19 Dose: 324 mg Hydralazine HCl (Apresoline) 10 mg PO TID [facility] Last Admin: 02/19/18 10:19 Dose: 10 mg Insulin Human Regular (Humulin R High) 0 units SC [facility]; Protocol Last Admin: 02/19/18 08:00 Dose: Not Given Ondansetron HCl (Zofran Inj) 4 mg IVP Q4H PRN PRN Reason: Nausea/Vomiting Pantoprazole Sodium (Protonix Inj) 40 mg IVP Q12 [facility] Last Admin: 02/19/18 10:20 Dose: 40 mg Sevelamer HCl (Renagel) 800 mg PO BID [facility] Last Admin: 02/19/18 10:18 Dose: 800 mg Tamsulosin HCl (Flomax) 0.4 mg PO DAILY [facility] Last Admin: 02/19/18 10:20 Dose: 0.4 mg Vitamin B Complex/Vit C/Folic Acid (Nephro-Tyson) 1 tab PO DAILY [facility] Last Admin: 02/19/18 10:19 Dose: 1 tab - Labs Labs: 02/19/18 06:30 02/19/18 06:30 Attending/Attestation - Attestation I have personally seen and examined this patient.: Yes I have fully participated in the care of the patient.: Yes I have reviewed all pertinent clinical information, including history, physical exam and plan: Yes
[2018-02-19] MEDS: Multivitamin Vitamin B Complex (Nephro-Vite) Tab PO SCH (10:19)
[2018-02-19 10:21] VITALS: BP 119/73; PULSE 63
--- NOTE | 2018-02-19 17:59 | PROCN ---
DATE: 02/18/2018 LOCATION: The patient is in room 570. REASON AND REQUEST DONE BY: Dr. Young with the patient to have a bone marrow aspiration biopsy in view of increasing transfusion requirement without major pathology seen on the upper endoscopy and colonoscopy which were done at two different institutions. Consent for underlying issues such as myelodysplastic syndrome or any other pathology was raised for which the marrow was requested. PROCEDURE NOTE: The patient was brought down to the CAT scan department under the supervision and help of Dr. Kamari Mohan, targeting the posterior superior iliac crest. Using sterile aseptic precautions, bone marrow aspiration biopsy was done from the posterior superior iliac crest using an electric drill. Good core biopsy of more than 1.5 inches was removed that aspirate being obtained at the same time. These were sent off for various studies on the marrow including workup for myelodysplastic syndrome or intrinsic bone marrow pathology. The patient tolerated the procedure well. This was done under conscious sedation given by the nurse who was continuously monitoring. The patient will be sent back to the floor once he has recovered from the conscious sedation. We will follow up with the results of the marrow in a few days once the tests are available. We will communicate with Dr. Young as well. Karli Bermudez MD
[2018-02-20 21:43] LABS: GLYCOMARK(R) 3.2 mcg/mL (7.3-36.6)
--- NOTE | 2018-02-21 08:27 | DS ---
FINAL PROGRESS NOTE AND DISCHARGE SUMMARY The patient was discharged from room 570, bed 2. Overnight nurse's notes were reviewed. PHYSICAL EXAMINATION: VITAL SIGNS: T-max 98.1; heart rate 60, 63; blood pressure 117/76, 119/72, 119/73; respirations 18; O2 sat 99%. Overnight nurse's notes were reviewed. The patient underwent CT-guided bone marrow biopsy with Dr. Kamari Mohan and Dr. Bermudez, which he tolerated well. The patient also underwent hemodialysis yesterday. HEENT AND NECK: Head examination normocephalic, atraumatic. HEENT examination shows pinkish pale conjunctivae. Anicteric sclerae. No oropharyngeal lesion. No neck rigidity. CHEST: Kyphosis. Positive chest defibrillator noted. CARDIOVASCULAR: S1 and S2. Positive systolic murmur, left sternal border, right second intercostal space, left second intercostal space. LUNGS: Shows no audible crackles, rales or wheezing. ABDOMEN: Soft, positive bowel sound. No palpable hepatosplenomegaly noted. GENITALIA: Male. RECTAL: Deferred. EXTREMITIES: Extremity shows positive left upper extremity AV fistula, positive thrill. Lower extremity shows no pitting edema, no calf tenderness, no Homans sign. NEUROLOGIC: The patient is alert, awake, oriented x2. Motor strength is 5/5, positive upper extremity contractures and deformities of the upper extremity. DIAGNOSTICS: On 02/19/2018, WBC 4.9, hemoglobin and hematocrit are 9.6 and 29.7, platelets 111,000. Granulocytes, 81% segs. Sodium 136, potassium 4.5, chloride 101, CO2 23, anion gap 16, BUN down to 78, creatinine 7.6, GFR 9, glucose 95, calcium 7.8, phosphorus 5.2, magnesium 1.9. LFTs are normal. Hepatitis A, B, C serologies are negative. Blood transfusion, 5 units, blood type A positive. FINAL IMPRESSION, PLAN AND DISCHARGE DIAGNOSES: 1. Severe symptomatic anemia, etiology undetermined, unclear. 2. Status post CAT scan-guided bone marrow biopsy of the right posterior superior iliac spine. 3. Degenerative joint disease of the first metatarsophalangeal joint. 4. Previous amputation of the first distal phalanx. 5. Cardiomegaly. 6. Status post automatic implantable cardioverter-defibrillator implant. 7. Cholelithiasis with mild mural thickening. 8. Prostatomegaly. 9. Ascites. 10. Right axis deviation. 11. History of diabetic foot disease and diabetic foot ulceration. 12. Left first metatarsophalangeal joint amputation with hypergranular wound. 13. End-stage renal disease, hemodialysis dependent, three times a week via the left upper extremity arteriovenous fistula. 14. 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 15. Non-insulin requiring diabetes mellitus. 16. History of dilated cardiomyopathy. 17. History of nonsustained ventricular tachycardia and automatic implantable cardioverter-defibrillator implant. 18. Cecal arteriovenous malformation. 19. Esophageal polyp. 20. Gastritis. 21. Probable anemia of chronic disease. 22. Benign 3-mm esophageal squamous papilloma. 23. Small cecal arterial malformation. 24. Sigmoid diverticulosis. 25. Internal hemorrhoids. 1. Severe symptomatic anemia of unknown etiology. 2. Dilated cardiomyopathy with history of nonsustained ventricular tachycardia status post automatic implantable cardioverter defibrillator. 3. End-stage renal disease, hemodialysis dependent 3 times a week. 4. History of well-controlled diabetes mellitus. 5. Transfusion-dependent anemia. 6. Possible anemia of chronic disease. 7. Benign esophageal squamous papilloma. 8. Cecal arteriovenous malformation and sigmoid diverticulosis and internal hemorrhoid. 9. History of [id number] diabetes mellitus, history of diabetic neuropathy, history of severe degenerative joint disease. 10. Bilateral upper extremity flexion contractures. 11. History of signing out against medical advise. 12. Persistent refractory transfusion requiring independent anemia. 13. Non-hemolyzed hyperkalemia. 14. Dilated cardiomyopathy. 15. Ascites. 16. Prostatomegaly. 17. L5-S1 disc bulge and degenerative disc disease. 18. Right axis deviation. 19. Relative thrombocytopenia with low normal platelet count. 20. Granulocytosis. 21. Hyperphosphatemia and secondary hyperparathyroidism. 22. History of diabetic foot disease. 23. History of hypertension. 24. Constipation. 25. History of nonsustained ventricular tachycardia. 26. History of hyperlipidemia. 1. Severe symptomatic anemia, etiology unclear. 2. Status post packed red blood cell transfusion x1. 3. Questionable anemia of chronic disease. 4. Non-hemolyzed hyperkalemia. 5. End-stage renal disease, hemodialysis dependent 3 times a week via the left upper extremity arteriovenous fistula. 6. Hyperphosphatemia and secondary hyperparathyroidism. 7. Right axis deviation. 8. Hypertension. 9. History of nonsustained ventricular tachycardia. 10. History of cardiomyopathy and congestive heart failure. 11. Status post automatic implantable cardioverter defibrillator implant. 12. Diabetes mellitus. 13. Dilated cardiomyopathy. 14. History of poor compliance. 15. Bilateral upper extremity flexion contractures. 16. Relative borderline thrombocytopenia. 17. History of noncompliance and history of signing out against medical advise. 18. History of peripheral vascular disease. 19. History of diabetic foot ulceration and diabetic foot disease. 20. History of recurrent anemia. 21. History of colonoscopy, reported negative by the patient's nurses, history of esophagogastroduodenoscopy. 1. Severe symptomatic anemia with decreasing hemoglobin to 6 g. 2. Generalized weakness and fatigue. 3. Lightheadedness. 4. End-stage renal disease, hemodialysis dependent since January 2017. 5. Hypotension. 6. History of severe symptomatic anemia with a decreasing hemoglobin of 6.7. 7. Borderline hyperkalemia. 8. History of congestive heart failure, cardiomyopathy and automatic implantable cardioverter defibrillator implant. 9. Right axis deviation. 10. History of cardiomyopathy with automatic implantable cardioverter defibrillator implant. 11. History of diabetes mellitus for 20 years. 12. Hypertension. 13. History of anemia according to the patient recently diagnosed 2 months ago. 14. History of status post multiple packed red blood cell transfusions. 15. History of negative colonoscopy. 16. History of left foot osteomyelitis and abscess. 17. History of left upper extremity arteriovenous fistula. 18. Cardiomegaly. 19. History of automatic implantable cardioverter defibrillator, history of type 2 diabetes mellitus, history of multiple blood transfusions. 20. History of elevated erythrocyte sedimentation rate. 21. Elevated prostate-specific antigen of 6.4. 22. Stool for occult blood positive. 23. History of free kappa monoclonal free light chain present. 24. 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 25. Left foot Escherichia coli, coagulase-negative Staphylococcus and Corynebacterium, left diabetic foot ulceration and Serratia marcescens diabetic foot ulceration. 26. End-stage renal disease, hemodialysis dependent 3 times a week via the left upper extremity arteriovenous fistula. 27. Peripheral vascular disease with abnormal left ankle brachial index at rest and history of left iliac/common femoral artery occlusive disease. 28. History of signing out against medical advice. 29. Ascites. 30. Urinary bladder wall thickening. 31. Left and right foot cellulitis. 32. Gallbladder wall thickening. 33. Splenomegaly. 34. Abdominal ascites. 35. Status post paracentesis of 5.8 liters. 36. Peripheral vascular disease. 37. Hepatomegaly. 38. Cholelithiasis. 39. Nodular hepatic contour. 40. Pancreatic fatty atrophy. 41. History of bilateral adrenal gland hypertrophy. 42. Distended urinary bladder. 43. Prostatomegaly. 44. Perihepatic perisplenic ascites. 45. Degenerative joint disease. 46. Status post esophagogastroduodenoscopy and colonoscopy. 47. History of paracentesis. 48. Cardiomyopathy with left ventricular ejection fraction of 22%. 49. Pulmonary hypertension with right ventricular systolic pressure of 50 mmHg. 50. Concentric left ventricular hypertrophy. 51. Severely impaired left ventricular systolic function. 52. Left ventricular global hypokinesis. 53. Severely reduced right ventricular systolic function and moderately dilated right ventricle. 54. Moderately dilated left atrium. 55. Moderately thickened aortic valve. 56. Moderate mitral regurgitation. 57. Moderate pulmonary hypertension with elevated right ventricular systolic pressure of 50 mmHg. 58. 59. History of right foot cellulitis. 60. Left foot metatarsal joint cellulitis. 61. Systolic congestive heart failure. 62. History of nonsustained ventricular tachycardia. 63. History of sleep apnea. 64. History of noncompliance. 65. Urinary retention with marked postvoid residual. At present, the patient has been cleared for discharge. DISCHARGE FOLLOWUP: With Dr. Thacker within this coming week. DISCHARGE MEDICATIONS: As per ambulatory orders plus new script. DISCHARGE DIET: Renal diet. DISCHARGE MEDICATIONS: As follows: 1. Amiodarone 200 mg daily. 2. Ecotrin 81 mg daily. 3. Lipitor 40 mg daily. 4. Coreg 6.25 mg twice a day. 5. Colace 100 mg 3 times a day. 6. Ferrous sulfate 324 mg three times a day. 7. Hydralazine 10 mg three times a day. 8. Renvela 800 mg twice a day. 9. Flomax 0.4 mg daily. 10. Nephrocaps one capsule daily. During this hospitalization, the patient was extensively explained about the details of his medical condition, diagnosis, and treatment plan. All details were discussed and explained to the patient at length and all question concern answered to his satisfaction. Time spent in the discharge process, 45 minutes. Dictated and electronically signed, not read. Geoffrey Thacker MD [facility]
== END 2018-02-19 12:40 | disposition home or self-care (01) | DRG 811 ==
LOC: ED 12:41 → ERH 16:10 → 5RSO 18:02 → OBSVTOIN 02-18 08:38
PROVIDERS: ADMIT Internal Medicine; ATTEND Internal Medicine
PROC: BR2D1ZZ Computerized Tomography (CT Scan) of Sacroiliac Joints using Low Osmolar Contrast (ICD-10-PCS; 2018-02-18)
PROC: 30233N1 Transfusion of Nonautologous Red Blood Cells into Peripheral Vein, Percutaneous Approach (ICD-10-PCS; 2018-02-18)
PROC: 07DR3ZX Extraction of Iliac Bone Marrow, Percutaneous Approach, Diagnostic (ICD-10-PCS; principal; 2018-02-18 16:00)
PROC: 0HBNXZZ Excision of Left Foot Skin, External Approach (ICD-10-PCS; 2018-02-19)
DX: D63.1 Anemia in chronic kidney disease (principal); N18.6 End stage renal disease; I13.2 Hypertensive heart and chronic kidney disease with heart failure and with stage 5 chronic kidney disease, or end stage renal disease; I50.20 Unspecified systolic (congestive) heart failure; I42.0 Dilated cardiomyopathy; L03.115 Cellulitis of right lower limb; L03.116 Cellulitis of left lower limb; N25.81 Secondary hyperparathyroidism of renal origin; R18.8 Other ascites; Q27.30 Arteriovenous malformation, site unspecified; D69.6 Thrombocytopenia, unspecified; E11.22 Type 2 diabetes mellitus with diabetic chronic kidney disease; E11.40 Type 2 diabetes mellitus with diabetic neuropathy, unspecified; E11.51 Type 2 diabetes mellitus with diabetic peripheral angiopathy without gangrene; E11.621 Type 2 diabetes mellitus with foot ulcer; E78.5 Hyperlipidemia, unspecified; E83.39 Other disorders of phosphorus metabolism; E87.5 Hyperkalemia; F17.290 Nicotine dependence, other tobacco product, uncomplicated; G47.30 Sleep apnea, unspecified; I25.10 Atherosclerotic heart disease of native coronary artery without angina pectoris; I27.20 Pulmonary hypertension, unspecified; I34.0 Nonrheumatic mitral (valve) insufficiency; K29.70 Gastritis, unspecified, without bleeding; K57.30 Diverticulosis of large intestine without perforation or abscess without bleeding; K59.00 Constipation, unspecified; K64.8 Other hemorrhoids; K80.20 Calculus of gallbladder without cholecystitis without obstruction; L97.529 Non-pressure chronic ulcer of other part of left foot with unspecified severity; M19.079 Primary osteoarthritis, unspecified ankle and foot; M51.27 Other intervertebral disc displacement, lumbosacral region; N40.1 Benign prostatic hyperplasia with lower urinary tract symptoms; R33.8 Other retention of urine; Z79.899 Other long term (current) drug therapy; Z83.3 Family history of diabetes mellitus; Z91.19 Patient's noncompliance with other medical treatment and regimen; Z95.810 Presence of automatic (implantable) cardiac defibrillator; Z99.2 Dependence on renal dialysis

== ENCOUNTER 2018-03-17 12:30 | Inpatient (IN) | payer OTHER, MEDICARE ==
[2018-03-17 12:32] VITALS: BMI 27.1
--- NOTE | 2018-03-17 12:56 | ED PDOC ---
Arrival/HPI - General Chief Complaint: Fever Time Seen by Provider: 03/17/18 12:32 Historian: Patient - History of Present Illness Narrative History of Present Illness (Text): 03/17/18 12:50 67 year old male, on Coumadin, whose past medical history includes arthritis, dialysis (M,W,F), defibrillator, hypertension, and diabetes presents to the emergency department complaining of generalized weakness and a low grade fever for the past 24 hours. Patient reports associated lightheadedness and baseline non-production of urine. He notes a history of low blood count and states his present symptoms feel similar to previous experience. He requests to have his blood count checked. He denies any dark or bloody stool however. No trauma or fall. He denies headache, chest pain, shortness of breath, dyspnea on exertion, cough, nausea, vomiting, diarrhea, back pain, neck pain, or any other complaint. PMD: Dr. Camara Analyst Food And Beverage: Dr. Young Time/Duration: 24 hours Symptom Onset: Gradual Symptom Course: Unchanged Activities at Onset: Light Context: Home Past Medical History - Provider Review Nursing Documentation Reviewed: Yes - Infectious Disease Hx of Infectious Diseases: None - Cardiac Hx Cardiac Disorders: Yes Hx Congestive Heart Failure: Yes (B/L LL +3 edema) Hx Hypertension: Yes - Pulmonary Hx Respiratory Disorders: No - Neurological Hx Neurological Disorder: No - HEENT Hx HEENT Disorder: No - Renal Hx Renal Failure: Yes - Endocrine/Metabolic Hx Diabetes Mellitus Type 2: Yes - Hematological/Oncological Hx Blood Disorders: Yes Hx Anemia: Yes (BLOOD TRANSFUSION) - Integumentary Hx Dermatological Disorder: Yes Other/Comment: 02-16-18 BILATERAL LEG EDEMA +3 PITTING - Musculoskeletal/Rheumatological Hx Musculoskeletal Disorders: Yes Hx Falls: Yes Hx Unsteady Gait: Yes (ROLLATOR) - Gastrointestinal Hx Gastrointestinal Disorders: Yes (CONSTIPATION) - Genitourinary/Gynecological Hx Genitourinary Disorders: Yes (ANURIA) - Psychiatric Hx Psychophysiologic Disorder: No Hx Substance Use: No - Surgical History Other/Comment: L AV shunt - Anesthesia Hx Anesthesia: Yes Hx Anesthesia Reactions: No Hx Malignant Hyperthermia: No Family/Social History - Physician Review Nursing Documentation Reviewed: Yes Family/Social History: No Known Family HX Smoking Status: Never Smoked Hx Alcohol Use: Yes (SOCIALLY) Hx Substance Use: No Allergies/Home Meds Allergies/Adverse Reactions: Allergies No Known Allergies Allergy (Verified 02/16/18 16:42) Home Medications: Home Meds Medication Instructions Recorded Confirmed Ferrous Sulfate [Feosol] 325 mg PO TID 02/06/18 02/16/18 Tamsulosin [Flomax] 0.4 mg PO DAILY 02/06/18 02/16/18 Amiodarone HCl 1 tab DAILY 02/16/18 02/16/18 Ferrous Sulfate [Ferosul] 325 mg PO TID 02/16/18 02/16/18 Sevelamer Carbonate [Renvela] 1 tab BID 02/16/18 02/16/18 Vit B Cplx C No.13/Folic AC/D3 1 each PO DAILY 02/16/18 02/16/18 [Nephrocaps Qt Tablet] Review of Systems - Physician Review All systems were reviewed & negative as marked: Yes - Review of Systems Constitutional: Fevers, Other (generalized weakness ) Eyes: absent: Vision Changes Respiratory: absent: SOB, Cough Cardiovascular: absent: Chest Pain Gastrointestinal: absent: Diarrhea, Nausea, Vomiting Musculoskeletal: absent: Back Pain, Neck Pain Skin: absent: Rash Neurological: Dizziness. absent: Headache Physical Exam Vital Signs Reviewed: Yes Temperature: Febrile Blood Pressure: Normal Pulse: Regular Respiratory Rate: Normal Appearance: Positive for: Well-Appearing, Non-Toxic, Comfortable Pain Distress: None Mental Status: Positive for: Alert and Oriented X 3 - Systems Exam Head: Present: Atraumatic, Normocephalic Pupils: Present: PERRL Extroacular Muscles: Present: EOMI Conjunctiva: Present: Normal Ears: Present: Normal Mouth: Present: Moist Mucous Membranes Neck: Present: Normal Range of Motion. No: Meningeal Signs, MIDLINE TENDERNESS Respiratory/Chest: Present: Clear to Auscultation, Good Air Exchange. No: Respiratory Distress, Accessory Muscle Use Cardiovascular: Present: Regular Rate and Rhythm, Normal S1, S2. No: Murmurs Abdomen: No: Tenderness, Distention, Peritoneal Signs Back: Present: Normal Inspection. No: CVA Tenderness, Midline Tenderness Upper Extremity: Present: NORMAL PULSES, Neurovascularly Intact, Other (left upper extremity fistula, good bruit and thrill). No: Cyanosis, Edema Lower Extremity: Present: Normal Inspection, NORMAL PULSES, Neurovascularly Intact. No: Edema Neurological: Present: GCS=15, CN II-XII Intact, Speech Normal Skin: Present: Warm, Dry, Normal Color. No: Rashes Psychiatric: Present: Alert, Oriented x 3, Normal Insight, Normal Concentration Medical Decision Making ED Course and Treatment: 03/17/18 13:00 Impression: 67 year old male w/ hx of ESRD on HD, Arthritis, Defibrillator, ?AFib on coumadin, who presents to the emergency department complaining of generalized weakness and low grade fever. Was seen by Dr. Vega (podiatry) today who noted improvement to L big toe, no worsening infection. No meningeal signs on exam, dry cough noted. No rash. No recent travel abroad. Had HD yesterday. No CP or SOB. Plan: -- BBK -- VBG -- EKG -- Labs -- Chest X-ray -- Tylenol -- Blood culture -- Reassess and disposition Prior Visits: Notes and results from previous visits were reviewed. Progress Notes: EKG reviewed, shows: NSR at 89 BPM. No stemi. 03/17/18 13:59 WBC: 21K, fever 102, code sepsis called. lactic 2.2 Hold fluids at this time- pt is a HD pt. trop 0.16, no active CP, pt notes taking his coumadin today 03/17/18 14:34 Foot X-ray reviewed, shows: IMPRESSION: Previous amputation of the 1st distal phalanx. No evidence of acute osteomyelitis Chest X-ray reviewed, shows: IMPRESSION: No active disease. 03/17/18 14:[address] camara 03/17/18 14:[address] reviewed, shows: IMPRESSION: Moderate ascites unchanged. Contraction of the gallbladder unchanged. Mural thickening in the urinary bladder and enlargement of the prostate 03/17/18 15:02 mildly hypotensive, however given fluids from abx 300 cc/hr, and started on careful hydration at 100cc/hr accepted by Dr. Camara Service to Tele: consulted his resident Dr. Mendoza- to see - Lab Interpretations I have reviewed the lab results: Yes - EKG Interpretation Interpreted by ED Physician: Yes Type: 12 lead EKG - Scribe Statement The provider has reviewed the documentation as recorded by the Scribe Mague Brito Provider Scribe Attestation: All medical record entries made by the Scribe were at my direction and personally dictated by me. I have reviewed the chart and agree that the record accurately reflects my personal performance of the history, physical exam, medical decision making, and the department course for this patient. I have also personally directed, reviewed, and agree with the discharge instructions and disposition. Disposition/Present on Arrival - Present on Arrival Any Indicators Present on Arrival: No History of DVT/PE: No History of Uncontrolled Diabetes: No Urinary Catheter: No History Surgical Site Infection Following: None - Disposition Have Diagnosis and Disposition been Completed?: Yes Diagnosis: Leukocytosis, Anemia Disposition Time: 15:02 Patient Problems: Current Active Problems Problem Status Onset Anemia Acute Leukocytosis Acute Condition: STABLE
[2018-03-17 13:29] LABS: VENOUS BLOOD GAS BASE EXCESS 5.1 mmol/L (0.0-2.0); VENOUS BLOOD GAS PO2 49 mm/Hg (30-55); VENOUS BLOOD PH 7.42 (7.32-7.43)
[2018-03-17 13:34] LABS: BASO # 0.01 K/mm3 (0.0-2.0); GRAN # 18.82 (1.4-6.5); GRAN % 87.9 % (50.0-68.0); HEMOGLOBIN 7.4 g/dL (14.0-18.0); LYMPH # 1.2 (1.2-3.4); LYMPH % 5.8 % (22.0-35.0); MONO # 1.4 (0.1-0.6); MONO % 6.3 % (1.0-6.0); RBC 2.39 10^6/uL (3.5-6.1); WHITE BLOOD COUNT 21.4 10^3/uL (4.5-11.0)
[2018-03-17 13:47] LABS: INR 1.84; PARTIAL THROMBOPLASTIN TIME 35.7 Seconds (25.1-36.5); PROTHROMBIN TIME 21.2 SECONDS (9.4-12.5)
[2018-03-17 14:03] LABS: ALB/GLOB RATIO 0.9 (1.1-1.8); ALBUMIN 3.8 g/dL (3.0-4.8); CALCIUM 8.8 mg/dL (8.4-10.5); TROPONIN I 0.16 ng/mL
[2018-03-17] MEDS ORDERED: Vancomycin 1gm in NS 250ml 1 GM/250 ML BAG IVPB STA (14:04)
[2018-03-17] MEDS ORDERED: Piperacillin/Tazobact 3.375 gm 100 ML IVPB STA (14:04)
--- NOTE | 2018-03-17 14:26 | RAD ---
Date of service: 03/17/2018 HISTORY: mild fever COMPARISON: 02/16/2018 TECHNIQUE: Chest PA and lateral FINDINGS: LUNGS: No active pulmonary disease. PLEURA: No significant pleural effusion identified. No pneumothorax apparent. CARDIOVASCULAR: No aortic atherosclerotic calcification present. Mild cardiomegaly no pulmonary vascular congestion. OSSEOUS STRUCTURES: No significant abnormalities. VISUALIZED UPPER ABDOMEN: Normal. OTHER FINDINGS: Single lead pacemaker IMPRESSION: No active disease.
--- NOTE | 2018-03-17 14:30 | RAD ---
Date of service: 03/17/2018 PROCEDURE: Left Foot Radiographs. HISTORY: L foot pain hx of ESRD COMPARISON: 02/17/2018 FINDINGS: BONES: Previous amputation of the 1st distal phalanx. No evidence of acute osteomyelitis JOINTS: Normal. SOFT TISSUES: Normal. OTHER FINDINGS: None. IMPRESSION: Previous amputation of the 1st distal phalanx. No evidence of acute osteomyelitis
--- NOTE | 2018-03-17 14:53 | CT ---
Date of service: 03/17/2018 PROCEDURE: CT Abdomen and Pelvis without intravenous contrast HISTORY: abd pain COMPARISON: 02/16/2018 TECHNIQUE: Technique. Contrast dose: Radiation dose: Total exam DLP = 805.74 mGy-cm. This CT exam was performed using one or more of the following dose reduction techniques: Automated exposure control, adjustment of the mA and/or kV according to patient size, and/or use of iterative reconstruction technique. FINDINGS: LOWER THORAX: Unremarkable. LIVER: Unremarkable. No gross lesion or ductal dilatation. GALLBLADDER AND BILE DUCTS: Gallbladder is contracted. There is mild mural thickening. There is a small gallstone PANCREAS: There is atrophy of the pancreas with fatty infiltration SPLEEN: Unremarkable. ADRENALS: Unremarkable. No mass. KIDNEYS AND URETERS: Unremarkable. No hydronephrosis. No solid mass. Small nonobstructing stone in the lower pole of the right kidney measuring 4 mm VASCULATURE: Unremarkable. No aortic aneurysm. No aortic atherosclerotic calcification or mural plaque present. BOWEL: Unremarkable. No obstruction. No gross mural thickening. APPENDIX: Unremarkable. Normal appendix. PERITONEUM: Moderate ascites unchanged LYMPH NODES: Unremarkable. No enlarged lymph nodes. BLADDER: There is uniform mural thickening in the bladder. This could represent outlet obstruction versus cystitis. REPRODUCTIVE: Mild enlargement of the prostate measuring 6 cm transversely BONES: Multilevel disc degeneration OTHER FINDINGS: None. IMPRESSION: Moderate ascites unchanged. Contraction of the gallbladder unchanged. Mural thickening in the urinary bladder and enlargement of the prostate
[2018-03-17] MEDS ORDERED: DiphenhydrAMINE 50 mg/ml Inj IVP STA (15:03)
[2018-03-17] MEDS ORDERED: DiphenhydrAMINE 50 mg/ml Inj ONE (15:07)
--- NOTE | 2018-03-17 16:09 | CP.PCM.HP ---
History of Present Illness - History of Present Illness History of Present Illness: CC: Fever, weakness HPI: Patient is a 67 yo with PMH of ESRD on HD (MWF), HTN, T2DM, CHF/dilated cardiomyopathy (EF 22%), and arthritis presents to [facility] due to low grade fever and generalized weakness that started yesterday at dialysis. Patient also complains of associated dizziness, similar to previous admission when he was anemic and had to be transfused. Patient states that he no longer makes urine. Patient has ongoing wound care for left foot ulcer. Patient is compliant with dialysis and his medications. He denies headache, chest pain, shortness of breath, dyspnea on exertion, cough, nausea, vomiting, diarrhea, back pain, neck pain, or any other complaint. 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 Present on Admission - Present on Admission Any Indicators Present on Admission: No Review of Systems - Review of Systems All systems: reviewed and no additional remarkable complaints except (12 point ROS reviewed and is negative other than what is stated in HPI.) Past Patient History - Infectious Disease Hx of Infectious Diseases: None - Past Social History Smoking Status: Never Smoked - CARDIAC Hx Cardiac Disorders: Yes Hx Congestive Heart Failure: Yes (B/L LL +3 edema) Hx Hypertension: Yes - PULMONARY Hx Respiratory Disorders: No - NEUROLOGICAL Hx Neurological Disorder: No - HEENT Hx HEENT Problems: No - RENAL Hx Renal Failure: Yes - ENDOCRINE/METABOLIC Hx Diabetes Mellitus Type 2: Yes - HEMATOLOGICAL/ONCOLOGICAL Hx Blood Disorders: Yes Hx Anemia: Yes (BLOOD TRANSFUSION) - INTEGUMENTARY Hx Dermatological Problems: Yes Other/Comment: 02-16-18 BILATERAL LEG EDEMA +3 PITTING - MUSCULOSKELETAL/RHEUMATOLOGICAL Hx Musculoskeletal Disorders: Yes Hx Falls: Yes Hx Unsteady Gait: Yes (ROLLATOR) - GASTROINTESTINAL Hx Gastrointestinal Disorders: Yes (CONSTIPATION) - GENITOURINARY/GYNECOLOGICAL Hx Genitourinary Disorders: Yes (ANURIA) - PSYCHIATRIC Hx Psychophysiologic Disorder: No Hx Substance Use: No - SURGICAL HISTORY Other/Comment: L AV shunt - ANESTHESIA Hx Anesthesia: Yes Hx Anesthesia Reactions: No Hx Malignant Hyperthermia: No Meds Allergies/Adverse Reactions: Allergies Allergy/AdvReac Type Severity Reaction Status Date / Time No Known Allergies Allergy Verified 02/16/18 16:42 Physical Exam - Constitutional Appears: No Acute Distress - Head Exam Head Exam: NORMAL INSPECTION - Eye Exam Eye Exam: Normal appearance Pupil Exam: NORMAL ACCOMODATION - ENT Exam ENT Exam: Mucous Membranes Moist, Normal Exam - Neck Exam Neck exam: Positive for: Normal Inspection - Respiratory Exam Respiratory Exam: Clear to Auscultation Bilateral. absent: Rales, Rhonchi, Wheezes - Cardiovascular Exam Cardiovascular Exam: REGULAR RHYTHM, RRR, +S1, +S2. absent: Diastolic murmur, Gallop, Rubs, Systolic Murmur - GI/Abdominal Exam GI & Abdominal Exam: Soft, Tenderness (suprapubic). absent: Distended, Guarding, Rebound - Extremities Exam Additional comments: Stage 2 ulcer on medial aspect of 1st MTP joint; no erythema, swelling, or discharge - Back Exam Back exam: NORMAL INSPECTION - Neurological Exam Neurological exam: Alert, CN II-XII Intact, Oriented x3 - Psychiatric Exam Psychiatric exam: Normal Affect, Normal Mood - Skin Skin Exam: Dry, Normal Color, Warm Results - Vital Signs Recent Vital Signs: Last Vital Signs Temp 99.4 F 03/17/18 14:50 Pulse 81 03/17/18 15:14 Resp 16 03/17/18 15:14 BP 86/51 L 03/17/18 15:14 Pulse Ox 95 03/17/18 15:14 - Labs Result Diagrams: 03/17/18 13:10 03/17/18 13:10 Labs: Laboratory Results - last 24 hr 03/17/18 03/17/18 03/17/18 13:10 13:10 13:10 WBC 21.4 H D RBC 2.39 L Hgb 7.4 L D Hct 23.9 L MCV 100.0 D MCH 31.0 MCHC 31.0 RDW 19.0 H Plt Count 142 MPV 10.0 Gran % 87.9 H Lymph % (Auto) 5.8 L [place] % (Auto) 6.3 H Eos % (Auto) 0.0 L Baso % (Auto) 0.0 Gran # 18.82 H Lymph # (Auto) 1.2 [place] # (Auto) 1.4 H Eos # (Auto) 0.0 Baso # (Auto) 0.01 PT 21.2 H INR 1.84 APTT 35.7 pO2 VBG pH VBG pCO2 VBG HCO3 VBG Total CO2 VBG O2 Sat (Calc) VBG Base Excess VBG Potassium Sodium 138 Chloride 97 L Glucose Lactate FiO2 Potassium 4.9 Carbon Dioxide 31 Anion Gap 14 BUN 54 H Creatinine 6.4 H Est GFR ( Amer) 11 Est GFR (Non-Af Amer) 9 Random Glucose 165 H Calcium 8.8 Magnesium 2.0 Total Bilirubin 1.4 H AST 39 ALT 24 Alkaline Phosphatase 133 H Troponin I 0.16 H* D Total Protein 8.0 Albumin 3.8 Globulin 4.2 Albumin/Globulin Ratio 0.9 L TSH 3rd Generation Venous Blood Potassium Blood Type Antibody Screen BBK History Checked 03/17/18 03/17/18 03/17/18 13:10 13:10 13:10 WBC RBC Hgb Hct MCV MCH MCHC RDW Plt Count MPV Gran % Lymph % (Auto) [place] % (Auto) Eos % (Auto) Baso % (Auto) Gran # Lymph # (Auto) [place] # (Auto) Eos # (Auto) Baso # (Auto) PT INR APTT pO2 49 VBG pH 7.42 VBG pCO2 47.0 VBG HCO3 30.5 H VBG Total CO2 31.9 H VBG O2 Sat (Calc) 85.8 H VBG Base Excess 5.1 H VBG Potassium 4.8 Sodium 137.0 Chloride 99.0 Glucose 162 H Lactate 2.2 H FiO2 21.0 Potassium Carbon Dioxide Anion Gap BUN Creatinine Est GFR ( Amer) Est GFR (Non-Af Amer) Random Glucose Calcium Magnesium Total Bilirubin AST ALT Alkaline Phosphatase Troponin I Total Protein Albumin Globulin Albumin/Globulin Ratio TSH 3rd Generation 2.84 Venous Blood Potassium 4.8 Blood Type A POSITIVE Antibody Screen Negative BBK History Checked Patient has bt Assessment & Plan - Assessment and Plan (Free Text) Assessment: 67 yo M with PMH of HTN, T2DM, ESRD on HD, CHF/dilated CM, and arthritis presents to [facility] for fever and weakness. Patient was found to have SIRS with cur rent source of infection unknown, but possibly from left foot ulcer. Plan: 1. SIRS - Febrile+leukocytosis - Source unclear at this time, possibly due to foot ulcer - Lactate 2.2 - CXR negative - CT abd/pelvis shows mural thickening of bladder and enlarged prostate - Foot x-ray negative for osteo - Blood cultures ordered - Flu ordered - Merrem ordered - ID consulted 2. 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 No evidence of acute osteomyelitis - Merrem ordered - One dose of Vanc and zosyn in ED - Podiatry consulted - Wound care consulted 3. ESRD - Cont HD MWF - Cont sevelamer - Nephrology consulted 4. Anemia of chronic disease - Hgb 7.4 - Cont Feosol and Docusate - Cont to monitor - Nephrology consulted 5. Elevated PSA - Enlarged prostate noted on abdominal CT - PSA ordered - Urology consulted 6. Elevated troponin - Likely 2/2 to ESRD - No chest pain - EKG shows NSR at 89 bpm 7. CHF - Previous Echo reviewed shows dilated CM with EF 22% - Cont Coreg, Lipitor, Amiodarone, ASA 8. DM - ISS - Accuchecks ACHS 9. HTN - Cont Coreg, Hydralazine DVT PPx: Heparin Patient was seen and discussed in detail with Dr. Thacker. Bobby Mendoza DO PGY2
[2018-03-17] MEDS ORDERED: Sodium Chloride 0.9% 500 ML IV STA (17:12)
--- NOTE | 2018-03-17 17:46 | PCM.SEPTIC ---
Sepsis Progress Note - Reassessment Type Date of Evaluation: 03/17/18 Time of Evaluation: 17:45 Reassessment Type: Non-invasive reassessment - Non Invasive Reassessment Were the most recent vital sign reviewed: Yes Vital Sign (Latest): Temp Pulse Resp BP Pulse Ox 98.8 F 76 16 92/54 L 95 03/17/18 16:51 03/17/18 16:51 03/17/18 16:51 03/17/18 16:51 03/17/18 16:51 Cardiovascular: Yes: Regular Rate, Rhythm Respiratory: Yes: Normal Breath Sounds Capillary Refill: Normal (Less than 2 sec) Pulses: Normal Radial, Normal Dorsalis Pedis, Normal Posterior Tibialis Skin: Normal Color, Warm
[2018-03-17 17:49] LABS: VENOUS BLOOD GAS BASE EXCESS 6.4 mmol/L (0.0-2.0); VENOUS BLOOD GAS PO2 40 mm/Hg (30-55); VENOUS BLOOD PH 7.48 (7.32-7.43)
[2018-03-17] MEDS: Insulin Lispro (humaLOG) MEDIUM Coverage SC SCH ×2 (18:11→22:32)
[2018-03-17] MEDS: SEVELAMER CARBONATE PO SCH (18:12)
[2018-03-17] MEDS: MEROPENEM 500 MG in NS 500 MG/50 ML BAG IVPB SCH (18:43)
--- NOTE | 2018-03-17 19:15 | CARD ---
APPROVED REPORT Date of service: 03/17/2018 EKG Measurement Heart [id number] <Conclusion> Normal sinus rhythm Right axis deviation Pulmonary disease pattern Nonspecific ST and T wave abnormality Abnormal ECG
[2018-03-17] MEDS ORDERED: Pneumococcal 23-Valent Vaccine IM ONE (20:59)
[2018-03-17] MEDS ORDERED: Influenza Vaccine 60 mcg/0.5 mL SYR (4YR UP) IM ONE (20:59)
--- NOTE | 2018-03-17 22:03 | CON ---
DATE OF CONSULTATION: 03/17/2018 REFERRING PHYSICIAN: Geoffrey Thacker MD REASON FOR CONSULTATION: To provide dialysis services for a patient admitted with low-grade fevers and a left foot infection. HISTORY OF PRESENT ILLNESS: The patient is a pleasant 67-year-old black male known to me from outpatient dialysis, history of end-stage renal disease. The patient dialyzes at [facility] in [place] Wednesday, Wednesday and Wednesday. Last dialysis was on 03/16/2018. History of hypertension, history of NIDDM, history of a left foot wound followed by Podiatry, history of cardiomyopathy with ejection fraction of 22% with valvular heart disease status post AICD in 01/2017. History of anemia, status post a negative GI workup and negative bone marrow biopsy, history of edema of the lower extremities. History of secondary hyperparathyroidism. The patient was noted to have low-grade fevers. He came to the emergency room and was noted to have an elevated white blood cell count of 21.4. The patient is admitted for evaluation of his low-grade fevers, leukocytosis and likely left foot wound infection. The patient is followed by Dr. Contreras. PAST MEDICAL HISTORY: Significant for end-stage renal disease, hypertension, NIDDM, dilated cardiomyopathy, status post AICD, ejection fraction 22% with MR/TR/PI, history of anemia requiring blood transfusion status post a negative bone marrow biopsy, status post a negative GI workup. History of left foot wound infection followed by Podiatry, history of lower extremity edema and secondary hyperparathyroidism. History of hyperlipidemia. Positive left upper extremity AV fistula. FAMILY HISTORY: Father unknown. Mother is 97 years old and was just diagnosed with diabetes. SOCIAL HISTORY: Positive history of alcohol use. Positive history of occasional cigar use. MEDICATIONS AT HOME: Hydralazine, Renvela, Feosol, Colace, Coreg, Lipitor, aspirin, amiodarone, Nephrocaps, Flomax. CURRENT MEDICATIONS IN HOSPITAL: Hydralazine, aspirin, amiodarone, Coreg, Feosol, heparin, sliding scale insulin, Lipitor, meropenem, Protonix, Renvela, Tylenol p.r.n., Zofran p.r.n., and normal saline, which will be discontinued. ALLERGIES : THE PATIENT HAS NO KNOWN ALLERGIES TO MEDICATIONS. REVIEW OF SYSTEMS: Ten plus systems reviewed with the patient. GENERAL: The patient states appetite and weight have been stable. ENT: Denies any hearing or visual problems. PULMONARY: No shortness of breath. No COPD. No bronchitis, emphysema or pneumonia. CARDIAC: History as noted above, cardiomyopathy, status post AICD with valvular heart disease. GI: History of mild constipation. No history of abdominal pain, nausea, vomiting or diarrhea. : No significant urine output. History of end-stage renal disease. ENDOCRINE: Positive for NIDDM. Positive for secondary hyperparathyroidism. MUSCULOSKELETAL: No issues. NEURO: No history of CVA, TIA, seizures or syncope. HEME/ONC: History of anemia in part secondary to chronic kidney disease. PSYCHIATRIC: History is negative. PHYSICAL EXAMINATION: GENERAL: The patient is currently seen on telemetry 2R. He appears to be comfortable in bed with no acute distress. VITAL SIGNS: Current blood pressure 96/56, temperature 98.8, T-max is 102.2, pulse was 86, respiratory rate is 16, pulse ox is 95%. HEENT: Exam shows him to be normocephalic, atraumatic. Conjunctivae are pale. Sclerae are nonicteric. Pupils equal and reactive to light and accommodation. Extraocular muscles are intact. Posterior pharynx is normal. NECK: Supple. No lymphadenopathy. No bruits or thyromegaly. CHEST: Clear to auscultation and percussion. No rales, rhonchi or wheezing. CARDIOVASCULAR: Regular rate and rhythm with MR/TR/PI. No S3, no S4, no rub. Positive AICD. ABDOMEN: Soft. Bowel sounds normal. No rebound, guarding or masses. BACK: No CVAT. No spinal tenderness. EXTREMITIES: Diminished lower extremity pulses bilaterally. Positive dressing over his left foot. This was not removed nor was his foot examined. No drainage seen and no odor appreciated. No cyanosis, clubbing or edema of the lower extremities. NEURO: Shows him to be alert, oriented x3 with no gross focal motor or sensory deficits noted. LABORATORY DATA AND IMAGING STUDIES: Admitting abdominal CT scan shows ascites with an enlarged prostate. Left foot x-ray shows no evidence for osteomyelitis. He is status post amputation of the distal phalanx of the big toe. Chest x-ray showed no acute pulmonary disease. Labs: White blood cell count 21.4, hemoglobin 7.4 with a platelet count of 142,000. Coags: PT of 21.2 with an INR of 1.84 and a PTT of 35.7. Blood gas showed a pH of 7.48 with a pO2 of 40. This was a venous blood gas. PCO2 was 41. Lactic acid level initially was 2.2, it is currently 1.4. Chemistries showed a normal set of electrolytes. Sodium 138, potassium 4.9. BUN 54 with a creatinine of 6.4. Glucose was 165, repeat 126. Bilirubin 1.4. Calcium 8.8, magnesium 2.0. Troponin was mildly elevated at 0.16. PSA level was elevated at 43.4. TSH level was normal. Microbiology: All cultures are pending. ASSESSMENT: 1. Leukocytosis with a likely infected left foot wound. 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 The patient was febrile on admission. He is currently afebrile. He remains on IV antibiotic therapy and all cultures are pending. Previous cultures grew out E. coli, corynebacteria and coag-negative staph. The patient will receive local wound care and perhaps vascular evaluation if necessary. 2. End-stage renal disease. The patient will remain on Wednesday, Wednesday and Wednesday dialysis. The patient dialyzes 4 hours and we removed 2.5 kg fluid with each dialysis treatment. 3. History of hypertension. The patient is borderline hypotensive. This is likely secondary to his cardiomyopathy. The patient remains off blood pressure medicine. He is on hydralazine for afterload reduction. 4. History of dilated cardiomyopathy. Ejection fraction 22% with mitral regurgitation/tricuspid regurgitation/pulmonary insufficiency. Status post AICD in 01/2017. The patient follows intermittently with Cardiology. 5. History of anemia. Negative bone marrow biopsy, negative GI workup. Likely bone marrow suppression secondary to his left foot diabetic wound infection. 6. Past history of lower extremity edema. This has resolved with aggressive outpatient dialysis. 7. History of secondary hyperparathyroidism. The patient will continue binder therapy. We will check phosphorus level with dialysis tomorrow. 8. Elevated PSA level. evaluation in progress. The abdominopelvic CT scan showed an enlarged prostate. PLAN: 1. Hemodialysis tomorrow. Orders are on chart and consent will be signed. 2. Empiric IV antibiotic therapy pending cultures. 3. Podiatry consult and infectious disease consult pending. 4. consult pending for his elevated PSA level. 5. Continue binder therapy and renal diet. 6. P.r.n. transfuse the patient on dialysis. I will maximize Aranesp and check iron levels. 7. Close renal followup during hospitalization. Thank you for letting me partake and share in the care of our mutual patient. Chidi Ramirez MD
[2018-03-18] MEDS ORDERED: Sodium Chloride 0.9% 500 ML IV STA ×2 (01:04→02:39)
[2018-03-18 01:38] LABS: TROPONIN I 0.14 ng/mL
[2018-03-18 04:27] LABS: ALB/GLOB RATIO 0.9 (1.1-1.8); BILIRUBIN,DIRECT 0.9 mg/dL (0.0-0.4); CALCIUM 8.1 mg/dL (8.4-10.5)
[2018-03-18] MEDS: Pantoprazole 40 mg EC Tab PO SCH (05:08)
[2018-03-18 05:46] LABS: TROPONIN I 0.15 ng/mL
--- NOTE | 2018-03-18 08:15 | PCM.URO ---
Urology Progress Note - Objective Lab Studies: Reviewed (pt anuric and on dialysis , admitted with sirs and for hemodialysis further plans to follow when we have more information . thank you for the gu consult) Lab Results Last 24 Hours: Laboratory Results - last 24 hr 03/17/18 03/17/18 03/17/18 13:00 13:10 13:10 WBC 21.4 H D RBC 2.39 L Hgb 7.4 L D Hct 23.9 L MCV 100.0 D MCH 31.0 MCHC 31.0 RDW 19.0 H Plt Count 142 MPV 10.0 Gran % 87.9 H Lymph % (Auto) 5.8 L [place] % (Auto) 6.3 H Eos % (Auto) 0.0 L Baso % (Auto) 0.0 Gran # 18.82 H Lymph # (Auto) 1.2 [place] # (Auto) 1.4 H Eos # (Auto) 0.0 Baso # (Auto) 0.01 PT 21.2 H INR 1.84 APTT 35.7 pO2 VBG pH VBG pCO2 VBG HCO3 VBG Total CO2 VBG O2 Sat (Calc) VBG Base Excess VBG Potassium Sodium Chloride Glucose Lactate FiO2 Potassium Carbon Dioxide Anion Gap BUN Creatinine Est GFR ( Amer) Est GFR (Non-Af Amer) POC Glucose (mg/dL) Random Glucose Calcium Phosphorus Magnesium Total Bilirubin Direct Bilirubin AST ALT Alkaline Phosphatase Total Creatine Kinase Troponin I Total Protein Albumin Globulin Albumin/Globulin Ratio Prostate Specific Ag 43.4 H TSH 3rd Generation Venous Blood Potassium Influenza Typ A,B (EIA) Blood Type Antibody Screen Crossmatch BBK History Checked 03/17/18 03/17/18 03/17/18 13:10 13:10 13:10 WBC RBC Hgb Hct MCV MCH MCHC RDW Plt Count MPV Gran % Lymph % (Auto) [place] % (Auto) Eos % (Auto) Baso % (Auto) Gran # Lymph # (Auto) [place] # (Auto) Eos # (Auto) Baso # (Auto) PT INR APTT pO2 VBG pH VBG pCO2 VBG HCO3 VBG Total CO2 VBG O2 Sat (Calc) VBG Base Excess VBG Potassium Sodium 138 Chloride 97 L Glucose Lactate FiO2 Potassium 4.9 Carbon Dioxide 31 Anion Gap 14 BUN 54 H Creatinine 6.4 H Est GFR ( Amer) 11 Est GFR (Non-Af Amer) 9 POC Glucose (mg/dL) Random Glucose 165 H Calcium 8.8 Phosphorus Magnesium 2.0 Total Bilirubin 1.4 H Direct Bilirubin AST 39 ALT 24 Alkaline Phosphatase 133 H Total Creatine Kinase Troponin I 0.16 H* D Total Protein 8.0 Albumin 3.8 Globulin 4.2 Albumin/Globulin Ratio 0.9 L Prostate Specific Ag TSH 3rd Generation 2.84 Venous Blood Potassium Influenza Typ A,B (EIA) Blood Type A POSITIVE Antibody Screen Negative Crossmatch See Detail BBK History Checked Patient has bt 03/17/18 03/17/18 03/17/18 13:10 17:30 18:00 WBC RBC Hgb Hct MCV MCH MCHC RDW Plt Count MPV Gran % Lymph % (Auto) [place] % (Auto) Eos % (Auto) Baso % (Auto) Gran # Lymph # (Auto) [place] # (Auto) Eos # (Auto) Baso # (Auto) PT INR APTT pO2 49 40 VBG pH 7.42 7.48 H VBG pCO2 47.0 41.0 VBG HCO3 30.5 H 30.5 H VBG Total CO2 31.9 H 31.8 H VBG O2 Sat (Calc) 85.8 H 79.8 H VBG Base Excess 5.1 H 6.4 H VBG Potassium 4.8 4.5 Sodium 137.0 138.0 Chloride 99.0 101.0 Glucose 162 H 120 H Lactate 2.2 H 1.4 FiO2 21.0 21.0 Potassium Carbon Dioxide Anion Gap BUN Creatinine Est GFR ( Amer) Est GFR (Non-Af Amer) POC Glucose (mg/dL) 126 H Random Glucose Calcium Phosphorus Magnesium Total Bilirubin Direct Bilirubin AST ALT Alkaline Phosphatase Total Creatine Kinase Troponin I Total Protein Albumin Globulin Albumin/Globulin Ratio Prostate Specific Ag TSH 3rd Generation Venous Blood Potassium 4.8 4.5 Influenza Typ A,B (EIA) Blood Type Antibody Screen Crossmatch BBK History Checked 03/17/18 03/17/18 03/18/18 19:48 22:27 00:50 WBC RBC Hgb Hct MCV MCH MCHC RDW Plt Count MPV Gran % Lymph % (Auto) [place] % (Auto) Eos % (Auto) Baso % (Auto) Gran # Lymph # (Auto) [place] # (Auto) Eos # (Auto) Baso # (Auto) PT INR APTT pO2 VBG pH VBG pCO2 VBG HCO3 VBG Total CO2 VBG O2 Sat (Calc) VBG Base Excess VBG Potassium Sodium Chloride Glucose Lactate FiO2 Potassium Carbon Dioxide Anion Gap BUN Creatinine Est GFR ( Amer) Est GFR (Non-Af Amer) POC Glucose (mg/dL) 148 H Random Glucose Calcium Phosphorus Magnesium Total Bilirubin Direct Bilirubin AST ALT Alkaline Phosphatase Total Creatine Kinase 117 Troponin I 0.14 H* Total Protein Albumin Globulin Albumin/Globulin Ratio Prostate Specific Ag TSH 3rd Generation Venous Blood Potassium Influenza Typ A,B (EIA) Negative for flu a/b Blood Type Antibody Screen Crossmatch BBK History Checked 03/18/18 03/18/18 03:50 07:25 WBC RBC Hgb Hct MCV MCH MCHC RDW Plt Count MPV Gran % Lymph % (Auto) [place] % (Auto) Eos % (Auto) Baso % (Auto) Gran # Lymph # (Auto) [place] # (Auto) Eos # (Auto) Baso # (Auto) PT INR APTT pO2 VBG pH VBG pCO2 VBG HCO3 VBG Total CO2 VBG O2 Sat (Calc) VBG Base Excess VBG Potassium Sodium 137 Chloride 101 Glucose Lactate FiO2 Potassium 4.8 Carbon Dioxide 29 Anion Gap 12 BUN 65 H Creatinine 6.6 H Est GFR ( Amer) 10 Est GFR (Non-Af Amer) 8 POC Glucose (mg/dL) 92 Random Glucose 102 Calcium 8.1 L Phosphorus 4.4 Magnesium 2.0 Total Bilirubin 0.9 Direct Bilirubin 0.9 H AST 30 ALT 30 Alkaline Phosphatase 97 Total Creatine Kinase 109 Troponin I 0.15 H* Total Protein 6.4 Albumin 3.0 Globulin 3.4 Albumin/Globulin Ratio 0.9 L Prostate Specific Ag TSH 3rd Generation Venous Blood Potassium Influenza Typ A,B (EIA) Blood Type Antibody Screen Crossmatch BBK History Checked Intake & Output: Intake & Output 03/17/18 03/18/18 03/18/18 18:59 06:59 18:59 Intake Total 240 1000 Output Total 0 Balance 240 1000 Weight 200 lb 200 lb Intake: IV 1000 Right Antecubital 1000 Oral 240 0 Output: Urine 0 Urine, Voided 0 Other: Voiding Method Toilet # Voids Urine, Voided 0 # Bowel Movements 0 1 Vital Signs: Vital Signs - 24 hr 03/17/18 03/17/18 03/17/18 12:47 12:57 14:50 Temperature 102.2 F H 102.2 F H 99.4 F Pulse Rate 90 90 Respiratory 18 16 Rate Blood Pressure 114/69 92/55 L O2 Sat by Pulse 97 93 L Oximetry 03/17/18 03/17/18 03/17/18 15:14 16:51 17:30 Temperature 98.8 F 98.7 F Pulse Rate 81 76 77 Respiratory 16 16 14 Rate Blood Pressure 86/51 L 92/54 L 96/56 L O2 Sat by Pulse 95 95 97 Oximetry 03/17/18 03/17/18 03/17/18 18:00 18:13 18:15 Temperature Pulse Rate 86 Respiratory Rate Blood Pressure 96/56 L 96/56 L O2 Sat by Pulse Oximetry 03/17/18 03/17/18 03/17/18 20:30 22:00 23:48 Temperature 100.1 F H Pulse Rate 84 Respiratory 16 Rate Blood Pressure O2 Sat by Pulse Oximetry 03/18/18 03/18/18 03/18/18 00:01 00:48 01:03 Temperature 100.1 F H 99.6 F 99.6 F Pulse Rate 84 88 Respiratory 20 Rate Blood Pressure 85/56 L 80/44 L O2 Sat by Pulse Oximetry 03/18/18 03/18/18 03/18/18 02:00 02:36 06:00 Temperature 99.0 F Pulse Rate 84 98 H Respiratory 20 Rate Blood Pressure 80/55 L 81/51 L O2 Sat by Pulse Oximetry 03/18/18 06:30 Temperature Pulse Rate 78 Respiratory Rate Blood Pressure 89/52 L O2 Sat by Pulse Oximetry
[2018-03-18] MEDS: Insulin Lispro (humaLOG) MEDIUM Coverage SC SCH ×4 (08:21→23:00)
[2018-03-18 08:29] LABS: BASO # 0.02 K/mm3 (0.0-2.0); BASO % 0.1 % (0.0-3.0); EOS # 0.2 (0.0-0.7); EOS % 0.9 % (1.5-5.0); GRAN # 16.63 (1.4-6.5); GRAN % 87.7 % (50.0-68.0); LYMPH # 1.1 (1.2-3.4); LYMPH % 5.5 % (22.0-35.0); MEAN CELL VOLUME 98.2 fl (80.0-105.0); MEAN CORPUSCULAR HEMOGLOBIN 30.6 pg (25.0-35.0); MEAN CORPUSCULAR HGB CONC 31.2 g/dl (31.0-37.0); MEAN PLATELET VOLUME 9.9 fl (7.0-11.0); MONO # 1.1 (0.1-0.6); MONO % 5.8 % (1.0-6.0); RBC 2.19 10^6/uL (3.5-6.1); RED CELL DISTRIBUTION WIDTH 18.6 % (11.5-14.5)
[2018-03-18 08:46] LABS: HEMOGLOBIN 6.7 g/dL (14.0-18.0)
[2018-03-18 09:13] LABS: TROPONIN I 0.15 ng/mL
[2018-03-18] MEDS ORDERED: Darbepoetin Alfa 100 mcg/ml Inj IVP ONE (10:00)
--- NOTE | 2018-03-18 10:51 | CON ---
DATE: 03/18/2018 CARDIOLOGY CONSULTATION HISTORY: The patient is a 67-year-old male, who presented with marked weakness. PAST MEDICAL HISTORY: His past medical history is extensive, which includes end-stage renal disease treated with dialysis. He suffers from chronic dilated cardiomyopathy with an EF of 22%. He is followed by Dr. Jonas in [facility]. A cardiac catheterization performed 3 weeks ago at [facility] [place] according to the patient revealed no critical CAD. He is status post ICD. In the emergency room, he is found to have a hemoglobin of 6.7. In addition, there is an infection in his lower extremity. SOCIAL HISTORY: He denies smoking. REVIEW OF SYSTEMS: Fourteen-point review of systems is reviewed in detail. Exertional dyspnea, fatigue, and mild shortness of breath noted. PHYSICAL EXAMINATION: VITAL SIGNS: The blood pressure is 90/52, the heart rate is in the 70s. NECK: Negative JVD. LUNGS: Without rales. HEART: Heart rate S1, S2. EXTREMITIES: Trace edema noted. LABORATORY DATA: Hemoglobin is 6.7. Chemistries, BUN and creatinine are 65 over 6.6. The troponin is 0.15. IMPRESSION: 1. Marked fatigue secondary to #2. 2. Marked anemia. 3. Dilated cardiomyopathy. 4. End-stage renal disease number 5. Infection of the lower extremity. PLAN: Given these findings, the patient will need of packed red blood cells transfusions as soon as possible. He is for dialysis today. If his fatigue is not improved after 2 units of packed red blood cells, we will consider ionotropic therapy. Kamari Watt MD
[2018-03-18] MEDS: SEVELAMER CARBONATE PO SCH ×2 (10:58→18:22)
[2018-03-18] MEDS: Multivitamin Vitamin B Complex (Nephro-Vite) Tab PO SCH (11:18)
--- NOTE | 2018-03-18 11:52 | CP.PCM.CON ---
<Lali Avalos - Last Filed: 03/18/18 11:56> History of Present Illness - History of Present Illness History of Present Illness: Podiatry Consult note for Dr. Amos 67M patient, with PMHx ESRD, arthritis, DM, HTN, CHF, seen and evaluated at bedside for L foot ulceration. Patient was admitted for weakness and fever following his HD treatment. Patient is well known to Dr. Contreras and Bette and follows up in the wound care center/office for foot ulceration. Patient states that he "feels sick" however he is not experiencing any pain to his foot. Denies N/V/F/SOB/CP. PMHx: as above PSHx: L foot I&D of abscess Social hx: Socially drinks alcohol, denies tobacco use, denies ilicit drug use Review of Systems - Review of Systems Review of Systems: As per HPI Past Patient History - Infectious Disease Hx of Infectious Diseases: None - Past Social History Smoking Status: Light Smoker < 10 Cigarettes Daily - CARDIAC Hx Cardiac Disorders: Yes Hx Circulatory Problems: Yes (BILATERAL LL +2 EDEMA) Hx Congestive Heart Failure: Yes Hx Hypercholesterolemia: Yes Hx Hypertension: Yes - PULMONARY Hx Respiratory Disorders: Yes (SMOKES CIGARS OCCASIONALLY) - NEUROLOGICAL Hx Neurological Disorder: No - HEENT Hx HEENT Problems: No - RENAL Hx Chronic Kidney Disease: Yes Hx Dialysis: Yes ([facility]) Date of Last Dialysis Treatment: 03/16/18 Hx Kidney Stones: Yes (4MM) Hx Renal Failure: Yes - ENDOCRINE/METABOLIC Hx Endocrine Disorders: Yes Hx Diabetes Mellitus Type 2: Yes - HEMATOLOGICAL/ONCOLOGICAL Hx Blood Disorders: Yes Hx Anemia: Yes (BLOOD TRANSFUSION) - INTEGUMENTARY Hx Dermatological Problems: Yes Other/Comment: 02-16-18 BILATERAL LEG EDEMA +2 PITTING - MUSCULOSKELETAL/RHEUMATOLOGICAL Hx Musculoskeletal Disorders: Yes Hx Falls: Yes Hx Unsteady Gait: Yes (ROLLATOR) - GASTROINTESTINAL Hx Gastrointestinal Disorders: Yes (CONSTIPATION) Hx Gall Bladder Disease: Yes (GALLSTONES) - GENITOURINARY/GYNECOLOGICAL Hx Genitourinary Disorders: Yes (ANURIA) Hx Prostate Problems: Yes (BPH) - PSYCHIATRIC Hx Psychophysiologic Disorder: No Hx Substance Use: No - SURGICAL HISTORY Hx Surgeries: Yes (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 .) Other/Comment: L AV shunt - ANESTHESIA Hx Anesthesia: Yes Hx Anesthesia Reactions: No Hx Malignant Hyperthermia: No Meds Allergies/Adverse Reactions: Allergies Allergy/AdvReac Type Severity Reaction Status Date / Time No Known Allergies Allergy Verified 03/17/18 16:54 - Medications Medications: Current Medications Acetaminophen (Tylenol 325mg Tab) 650 mg PO Q6 PRN PRN Reason: TEMP>=99.5F Last Admin: 03/17/18 23:48 Dose: 650 mg Acetaminophen (Tylenol 650 Mg Supp) 650 mg RC Q6H PRN PRN Reason: TEMP>=99.5F Amiodarone HCl (Cordarone) 200 mg PO DAILY [facility] Last Admin: 03/18/18 11:20 Dose: Not Given Aspirin (Aspirin Chewable) 81 mg PO DAILY [facility] Last Admin: 03/18/18 11:18 Dose: 81 mg Atorvastatin Calcium (Lipitor) 40 mg PO DIN [facility] Last Admin: 03/17/18 18:32 Dose: 40 mg Carvedilol (Coreg) 6.25 mg PO BID [facility] Last Admin: 03/18/18 11:21 Dose: Not Given Ferrous Sulfate (Feosol) 324 mg PO TID [facility] Last Admin: 03/18/18 11:18 Dose: 324 mg Heparin Sodium (Porcine) (Heparin) 5,000 units SC Q8 [facility]; Protocol Last Admin: 03/18/18 05:08 Dose: 5,000 units Meropenem/Sodium Chloride (Merrem Iv 500 Mg/Ns 50 Ml) 500 mg in 50 mls @ 100 mls/hr IVPB Q24H [facility]; Protocol Stop: 03/24/18 16:01 Last Admin: 03/17/18 18:43 Dose: 100 mls/hr Insulin Human Lispro (Humalog Med) 0 units SC ACHS [facility]; Protocol Last Admin: 03/18/18 08:21 Dose: Not Given Non-Formulary Medication (Sevelamer Carbonate [Renvela]) 1 tab PO BID [facility] Last Admin: 03/18/18 10:58 Dose: Not Given Ondansetron HCl (Zofran Inj) 4 mg IVP Q4H PRN PRN Reason: Nausea/Vomiting Pantoprazole Sodium (Protonix Ec Tab) 40 mg PO 0600 [facility] Last Admin: 03/18/18 05:08 Dose: 40 mg Tamsulosin HCl (Flomax) 0.4 mg PO DAILY [facility] Last Admin: 03/18/18 11:18 Dose: 0.4 mg Vitamin B Complex/Vit C/Folic Acid (Nephro-Tyson) 1 tab PO DAILY [facility] Last Admin: 03/18/18 11:18 Dose: 1 tab Physical Exam - Constitutional Appears: Well, Non-toxic, No Acute Distress - Head Exam Head Exam: ATRAUMATIC, NORMOCEPHALIC - Extremities Exam Additional comments: B/L LE Focused Exam: Vasc: DP and PT faintly palpable, CFT <3 seconds X 10, no edema, TG warm to wa rm, mild edema appreciated circumfrentially to b/l lower extremities Ortho: HAV deformities noted bilaterally, MMT 5/5 bilaterally, no posterior calf pain noted Neuro: Gross sensation intact, protective sensation diminished Derm: 2 cm X 1.5 cm wound at the dorso-medial aspect of the left 1st MTPJ, fibrogranular wound base noted, no drainage noted, minimal erythema left 1st MTPJ, no malodor, no probe to bone, no tunneling or tracking, no cellulitis appreciated, no clinical signs of infection at this time - Neurological Exam Neurological exam: Alert, Oriented x3 - Psychiatric Exam Psychiatric exam: Normal Affect, Normal Mood Results - Vital Signs Recent Vital Signs: Last Vital Signs Temp 99.0 F 03/18/18 02:36 Pulse 78 03/18/18 06:30 Resp 20 03/18/18 06:00 BP 81/48 L 03/18/18 11:21 Pulse Ox 97 03/17/18 17:30 - Labs Result Diagrams: 03/18/18 08:15 03/18/18 03:50 Labs: Laboratory Results - last 24 hr 03/17/18 03/17/18 03/17/18 13:00 13:10 13:10 WBC 21.4 H D RBC 2.39 L Hgb 7.4 L D Hct 23.9 L MCV 100.0 D MCH 31.0 MCHC 31.0 RDW 19.0 H Plt Count 142 MPV 10.0 Gran % 87.9 H Lymph % (Auto) 5.8 L [place] % (Auto) 6.3 H Eos % (Auto) 0.0 L Baso % (Auto) 0.0 Gran # 18.82 H Lymph # (Auto) 1.2 [place] # (Auto) 1.4 H Eos # (Auto) 0.0 Baso # (Auto) 0.01 PT 21.2 H INR 1.84 APTT 35.7 pO2 VBG pH VBG pCO2 VBG HCO3 VBG Total CO2 VBG O2 Sat (Calc) VBG Base Excess VBG Potassium Sodium Chloride Glucose Lactate FiO2 Potassium Carbon Dioxide Anion Gap BUN Creatinine Est GFR ( Amer) Est GFR (Non-Af Amer) POC Glucose (mg/dL) Random Glucose Calcium Phosphorus Magnesium Total Bilirubin Direct Bilirubin AST ALT Alkaline Phosphatase Total Creatine Kinase Troponin I Total Protein Albumin Globulin Albumin/Globulin Ratio Prostate Specific Ag 43.4 H TSH 3rd Generation Venous Blood Potassium Influenza Typ A,B (EIA) Blood Type Antibody Screen Crossmatch BBK History Checked 03/17/18 03/17/18 03/17/18 13:10 13:10 13:10 WBC RBC Hgb Hct MCV MCH MCHC RDW Plt Count MPV Gran % Lymph % (Auto) [place] % (Auto) Eos % (Auto) Baso % (Auto) Gran # Lymph # (Auto) [place] # (Auto) Eos # (Auto) Baso # (Auto) PT INR APTT pO2 VBG pH VBG pCO2 VBG HCO3 VBG Total CO2 VBG O2 Sat (Calc) VBG Base Excess VBG Potassium Sodium 138 Chloride 97 L Glucose Lactate FiO2 Potassium 4.9 Carbon Dioxide 31 Anion Gap 14 BUN 54 H Creatinine 6.4 H Est GFR ( Amer) 11 Est GFR (Non-Af Amer) 9 POC Glucose (mg/dL) Random Glucose 165 H Calcium 8.8 Phosphorus Magnesium 2.0 Total Bilirubin 1.4 H Direct Bilirubin AST 39 ALT 24 Alkaline Phosphatase 133 H Total Creatine Kinase Troponin I 0.16 H* D Total Protein 8.0 Albumin 3.8 Globulin 4.2 Albumin/Globulin Ratio 0.9 L Prostate Specific Ag TSH 3rd Generation 2.84 Venous Blood Potassium Influenza Typ A,B (EIA) Blood Type A POSITIVE Antibody Screen Negative Crossmatch See Detail BBK History Checked Patient has bt 03/17/18 03/17/18 03/17/18 13:10 17:30 18:00 WBC RBC Hgb Hct MCV MCH MCHC RDW Plt Count MPV Gran % Lymph % (Auto) [place] % (Auto) Eos % (Auto) Baso % (Auto) Gran # Lymph # (Auto) [place] # (Auto) Eos # (Auto) Baso # (Auto) PT INR APTT pO2 49 40 VBG pH 7.42 7.48 H VBG pCO2 47.0 41.0 VBG HCO3 30.5 H 30.5 H VBG Total CO2 31.9 H 31.8 H VBG O2 Sat (Calc) 85.8 H 79.8 H VBG Base Excess 5.1 H 6.4 H VBG Potassium 4.8 4.5 Sodium 137.0 138.0 Chloride 99.0 101.0 Glucose 162 H 120 H Lactate 2.2 H 1.4 FiO2 21.0 21.0 Potassium Carbon Dioxide Anion Gap BUN Creatinine Est GFR ( Amer) Est GFR (Non-Af Amer) POC Glucose (mg/dL) 126 H Random Glucose Calcium Phosphorus Magnesium Total Bilirubin Direct Bilirubin AST ALT Alkaline Phosphatase Total Creatine Kinase Troponin I Total Protein Albumin Globulin Albumin/Globulin Ratio Prostate Specific Ag TSH 3rd Generation Venous Blood Potassium 4.8 4.5 Influenza Typ A,B (EIA) Blood Type Antibody Screen Crossmatch BBK History Checked 03/17/18 03/17/18 03/18/18 19:48 22:27 00:50 WBC RBC Hgb Hct MCV MCH MCHC RDW Plt Count MPV Gran % Lymph % (Auto) [place] % (Auto) Eos % (Auto) Baso % (Auto) Gran # Lymph # (Auto) [place] # (Auto) Eos # (Auto) Baso # (Auto) PT INR APTT pO2 VBG pH VBG pCO2 VBG HCO3 VBG Total CO2 VBG O2 Sat (Calc) VBG Base Excess VBG Potassium Sodium Chloride Glucose Lactate FiO2 Potassium Carbon Dioxide Anion Gap BUN Creatinine Est GFR ( Amer) Est GFR (Non-Af Amer) POC Glucose (mg/dL) 148 H Random Glucose Calcium Phosphorus Magnesium Total Bilirubin Direct Bilirubin AST ALT Alkaline Phosphatase Total Creatine Kinase 117 Troponin I 0.14 H* Total Protein Albumin Globulin Albumin/Globulin Ratio Prostate Specific Ag TSH 3rd Generation Venous Blood Potassium Influenza Typ A,B (EIA) Negative for flu a/b Blood Type Antibody Screen Crossmatch BBK History Checked 03/18/18 03/18/18 03/18/18 03:50 07:25 08:15 WBC 19.0 H RBC 2.19 L Hgb 6.7 L* Hct 21.5 L MCV 98.2 MCH 30.6 MCHC 31.2 RDW 18.6 H Plt Count 133 MPV 9.9 Gran % 87.7 H Lymph % (Auto) 5.5 L [place] % (Auto) 5.8 Eos % (Auto) 0.9 L Baso % (Auto) 0.1 Gran # 16.63 H Lymph # (Auto) 1.1 L [place] # (Auto) 1.1 H Eos # (Auto) 0.2 Baso # (Auto) 0.02 PT INR APTT pO2 VBG pH VBG pCO2 VBG HCO3 VBG Total CO2 VBG O2 Sat (Calc) VBG Base Excess VBG Potassium Sodium 137 Chloride 101 Glucose Lactate FiO2 Potassium 4.8 Carbon Dioxide 29 Anion Gap 12 BUN 65 H Creatinine 6.6 H Est GFR ( Amer) 10 Est GFR (Non-Af Amer) 8 POC Glucose (mg/dL) 92 Random Glucose 102 Calcium 8.1 L Phosphorus 4.4 Magnesium 2.0 Total Bilirubin 0.9 Direct Bilirubin 0.9 H AST 30 ALT 30 Alkaline Phosphatase 97 Total Creatine Kinase 109 Troponin I 0.15 H* Total Protein 6.4 Albumin 3.0 Globulin 3.4 Albumin/Globulin Ratio 0.9 L Prostate Specific Ag TSH 3rd Generation Venous Blood Potassium Influenza Typ A,B (EIA) Blood Type Antibody Screen Crossmatch BBK History Checked 03/18/18 08:15 WBC RBC Hgb Hct MCV MCH MCHC RDW Plt Count MPV Gran % Lymph % (Auto) [place] % (Auto) Eos % (Auto) Baso % (Auto) Gran # Lymph # (Auto) [place] # (Auto) Eos # (Auto) Baso # (Auto) PT INR APTT pO2 VBG pH VBG pCO2 VBG HCO3 VBG Total CO2 VBG O2 Sat (Calc) VBG Base Excess VBG Potassium Sodium Chloride Glucose Lactate FiO2 Potassium Carbon Dioxide Anion Gap BUN Creatinine Est GFR ( Amer) Est GFR (Non-Af Amer) POC Glucose (mg/dL) Random Glucose Calcium Phosphorus Magnesium Total Bilirubin Direct Bilirubin AST ALT Alkaline Phosphatase Total Creatine Kinase 119 Troponin I 0.15 H* Total Protein Albumin Globulin Albumin/Globulin Ratio Prostate Specific Ag TSH 3rd Generation Venous Blood Potassium Influenza Typ A,B (EIA) Blood Type Antibody Screen Crossmatch BBK History Checked Assessment & Plan - Assessment and Plan (Free Text) Assessment: 67M patient, with PMHx ESRD, arthritis, DM, HTN, CHF, seen and evaluated at bedside for L foot ulceration. Plan: Patient seen and evaluated with Dr. 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 No evidence of OM Will continue to follow Thank you for the consult and allowing us to partake in the care of this patient - Date & Time Date: 03/18/18 Time: 12:03 <Kurtis Amos - Last Filed: 03/18/18 13:32> Meds - Medications Medications: Current Medications Acetaminophen (Tylenol 325mg Tab) 650 mg PO Q6 PRN PRN Reason: TEMP>=99.5F Last Admin: 03/17/18 23:48 Dose: 650 mg Acetaminophen (Tylenol 650 Mg Supp) 650 mg RC Q6H PRN PRN Reason: TEMP>=99.5F Amiodarone HCl (Cordarone) 200 mg PO DAILY [facility] Last Admin: 03/18/18 11:20 Dose: Not Given Aspirin (Aspirin Chewable) 81 mg PO DAILY [facility] Last Admin: 03/18/18 11:18 Dose: 81 mg Atorvastatin Calcium (Lipitor) 40 mg PO DIN [facility] Last Admin: 03/17/18 18:32 Dose: 40 mg Ferrous Sulfate (Feosol) 324 mg PO TID [facility] Last Admin: 03/18/18 11:18 Dose: 324 mg Heparin Sodium (Porcine) (Heparin) 5,000 units SC Q8 [facility]; Protocol Last Admin: 03/18/18 05:08 Dose: 5,000 units Meropenem/Sodium Chloride (Merrem Iv 500 Mg/Ns 50 Ml) 500 mg in 50 mls @ 100 mls/hr IVPB Q24H [facility]; Protocol Stop: 03/24/18 16:01 Last Admin: 03/17/18 18:43 Dose: 100 mls/hr Insulin Human Lispro (Humalog Med) 0 units SC ACHS [facility]; Protocol Last Admin: 03/18/18 12:39 Dose: Not Given Midodrine (Proamatine) 2.5 mg PO TID [facility] Non-Formulary Medication (Sevelamer Carbonate [Renvela]) 1 tab PO BID [facility] Last Admin: 03/18/18 10:58 Dose: Not Given Ondansetron HCl (Zofran Inj) 4 mg IVP Q4H PRN PRN Reason: Nausea/Vomiting Pantoprazole Sodium (Protonix Ec Tab) 40 mg PO 0600 [facility] Last Admin: 03/18/18 05:08 Dose: 40 mg Tamsulosin HCl (Flomax) 0.4 mg PO DAILY [facility] Last Admin: 03/18/18 11:18 Dose: 0.4 mg Vitamin B Complex/Vit C/Folic Acid (Nephro-Tyson) 1 tab PO DAILY [facility] Last Admin: 03/18/18 11:18 Dose: 1 tab Results - Vital Signs Recent Vital Signs: Last Vital Signs Temp 99.0 F 03/18/18 02:36 Pulse 78 03/18/18 06:30 Resp 20 03/18/18 06:00 BP 81/48 L 03/18/18 11:21 Pulse Ox 97 03/17/18 17:30 - Labs Result Diagrams: 03/18/18 08:15 03/18/18 03:50 Labs: Laboratory Results - last 24 hr 03/17/18 03/17/18 03/17/18 13:00 13:10 13:10 WBC 21.4 H D RBC 2.39 L Hgb 7.4 L D Hct 23.9 L MCV 100.0 D MCH 31.0 MCHC 31.0 RDW 19.0 H Plt Count 142 MPV 10.0 Gran % 87.9 H Lymph % (Auto) 5.8 L [place] % (Auto) 6.3 H Eos % (Auto) 0.0 L Baso % (Auto) 0.0 Gran # 18.82 H Lymph # (Auto) 1.2 [place] # (Auto) 1.4 H Eos # (Auto) 0.0 Baso # (Auto) 0.01 PT 21.2 H INR 1.84 APTT 35.7 pO2 VBG pH VBG pCO2 VBG HCO3 VBG Total CO2 VBG O2 Sat (Calc) VBG Base Excess VBG Potassium Glucose Lactate FiO2 Sodium Potassium Chloride Carbon Dioxide Anion Gap BUN Creatinine Est GFR ( Amer) Est GFR (Non-Af Amer) POC Glucose (mg/dL) Random Glucose Calcium Phosphorus Magnesium Total Bilirubin Direct Bilirubin AST ALT Alkaline Phosphatase Total Creatine Kinase Troponin I Total Protein Albumin Globulin Albumin/Globulin Ratio Prostate Specific Ag 43.4 H TSH 3rd Generation Venous Blood Potassium Influenza Typ A,B (EIA) Blood Type Antibody Screen Crossmatch BBK History Checked 03/17/18 03/17/18 03/17/18 13:10 13:10 13:10 WBC RBC Hgb Hct MCV MCH MCHC RDW Plt Count MPV Gran % Lymph % (Auto) [place] % (Auto) Eos % (Auto) Baso % (Auto) Gran # Lymph # (Auto) [place] # (Auto) Eos # (Auto) Baso # (Auto) PT INR APTT pO2 VBG pH VBG pCO2 VBG HCO3 VBG Total CO2 VBG O2 Sat (Calc) VBG Base Excess VBG Potassium Glucose Lactate FiO2 Sodium 138 Potassium 4.9 Chloride 97 L Carbon Dioxide 31 Anion Gap 14 BUN 54 H Creatinine 6.4 H Est GFR ( Amer) 11 Est GFR (Non-Af Amer) 9 POC Glucose (mg/dL) Random Glucose 165 H Calcium 8.8 Phosphorus Magnesium 2.0 Total Bilirubin 1.4 H Direct Bilirubin AST 39 ALT 24 Alkaline Phosphatase 133 H Total Creatine Kinase Troponin I 0.16 H* D Total Protein 8.0 Albumin 3.8 Globulin 4.2 Albumin/Globulin Ratio 0.9 L Prostate Specific Ag TSH 3rd Generation 2.84 Venous Blood Potassium Influenza Typ A,B (EIA) Blood Type A POSITIVE Antibody Screen Negative Crossmatch See Detail BBK History Checked Patient has bt 03/17/18 03/17/18 03/17/18 17:30 18:00 19:48 WBC RBC Hgb Hct MCV MCH MCHC RDW Plt Count MPV Gran % Lymph % (Auto) [place] % (Auto) Eos % (Auto) Baso % (Auto) Gran # Lymph # (Auto) [place] # (Auto) Eos # (Auto) Baso # (Auto) PT INR APTT pO2 40 VBG pH 7.48 H VBG pCO2 41.0 VBG HCO3 30.5 H VBG Total CO2 31.8 H VBG O2 Sat (Calc) 79.8 H VBG Base Excess 6.4 H VBG Potassium 4.5 Glucose 120 H Lactate 1.4 FiO2 21.0 Sodium 138.0 Potassium Chloride 101.0 Carbon Dioxide Anion Gap BUN Creatinine Est GFR ( Amer) Est GFR (Non-Af Amer) POC Glucose (mg/dL) 126 H Random Glucose Calcium Phosphorus Magnesium Total Bilirubin Direct Bilirubin AST ALT Alkaline Phosphatase Total Creatine Kinase Troponin I Total Protein Albumin Globulin Albumin/Globulin Ratio Prostate Specific Ag TSH 3rd Generation Venous Blood Potassium 4.5 Influenza Typ A,B (EIA) Negative for flu a/b Blood Type Antibody Screen Crossmatch BBK History Checked 03/17/18 03/18/18 03/18/18 22:27 00:50 03:50 WBC RBC Hgb Hct MCV MCH MCHC RDW Plt Count MPV Gran % Lymph % (Auto) [place] % (Auto) Eos % (Auto) Baso % (Auto) Gran # Lymph # (Auto) [place] # (Auto) Eos # (Auto) Baso # (Auto) PT INR APTT pO2 VBG pH VBG pCO2 VBG HCO3 VBG Total CO2 VBG O2 Sat (Calc) VBG Base Excess VBG Potassium Glucose Lactate FiO2 Sodium 137 Potassium 4.8 Chloride 101 Carbon Dioxide 29 Anion Gap 12 BUN 65 H Creatinine 6.6 H Est GFR ( Amer) 10 Est GFR (Non-Af Amer) 8 POC Glucose (mg/dL) 148 H Random Glucose 102 Calcium 8.1 L Phosphorus 4.4 Magnesium 2.0 Total Bilirubin 0.9 Direct Bilirubin 0.9 H AST 30 ALT 30 Alkaline Phosphatase 97 Total Creatine Kinase 117 109 Troponin I 0.14 H* 0.15 H* Total Protein 6.4 Albumin 3.0 Globulin 3.4 Albumin/Globulin Ratio 0.9 L Prostate Specific Ag TSH 3rd Generation Venous Blood Potassium Influenza Typ A,B (EIA) Blood Type Antibody Screen Crossmatch BBK History Checked 03/18/18 03/18/18 03/18/18 07:25 08:15 08:15 WBC 19.0 H RBC 2.19 L Hgb 6.7 L* Hct 21.5 L MCV 98.2 MCH 30.6 MCHC 31.2 RDW 18.6 H Plt Count 133 MPV 9.9 Gran % 87.7 H Lymph % (Auto) 5.5 L [place] % (Auto) 5.8 Eos % (Auto) 0.9 L Baso % (Auto) 0.1 Gran # 16.63 H Lymph # (Auto) 1.1 L [place] # (Auto) 1.1 H Eos # (Auto) 0.2 Baso # (Auto) 0.02 PT INR APTT pO2 VBG pH VBG pCO2 VBG HCO3 VBG Total CO2 VBG O2 Sat (Calc) VBG Base Excess VBG Potassium Glucose Lactate FiO2 Sodium Potassium Chloride Carbon Dioxide Anion Gap BUN Creatinine Est GFR ( Amer) Est GFR (Non-Af Amer) POC Glucose (mg/dL) 92 Random Glucose Calcium Phosphorus Magnesium Total Bilirubin Direct Bilirubin AST ALT Alkaline Phosphatase Total Creatine Kinase 119 Troponin I 0.15 H* Total Protein Albumin Globulin Albumin/Globulin Ratio Prostate Specific Ag TSH 3rd Generation Venous Blood Potassium Influenza Typ A,B (EIA) Blood Type Antibody Screen Crossmatch BBK History Checked 03/18/18 11:42 WBC RBC Hgb Hct MCV MCH MCHC RDW Plt Count MPV Gran % Lymph % (Auto) [place] % (Auto) Eos % (Auto) Baso % (Auto) Gran # Lymph # (Auto) [place] # (Auto) Eos # (Auto) Baso # (Auto) PT INR APTT pO2 VBG pH VBG pCO2 VBG HCO3 VBG Total CO2 VBG O2 Sat (Calc) VBG Base Excess VBG Potassium Glucose Lactate FiO2 Sodium Potassium Chloride Carbon Dioxide Anion Gap BUN Creatinine Est GFR ( Amer) Est GFR (Non-Af Amer) POC Glucose (mg/dL) 128 H Random Glucose Calcium Phosphorus Magnesium Total Bilirubin Direct Bilirubin AST ALT Alkaline Phosphatase Total Creatine Kinase Troponin I Total Protein Albumin Globulin Albumin/Globulin Ratio Prostate Specific Ag TSH 3rd Generation Venous Blood Potassium Influenza Typ A,B (EIA) Blood Type Antibody Screen Crossmatch BBK History Checked Attending/Attestation - Attestation I have personally seen and examined this patient.: Yes I have fully participated in the care of the patient.: Yes I have reviewed all pertinent clinical information: Yes
--- NOTE | 2018-03-18 12:23 | CP.PCM.CON ---
History of Present Illness - History of Present Illness History of Present Illness: 67 year old male with PMH of chronic CHF, chronic renal failure on HD, DM, morbid obesity with BMI 40, obstructive sleep apnea on CPAP, sciatica, HTN, S/P left foot debridement (2015) came in to [facility] because of low grade fever and generalized weakness while in dialysis yesterday. He had lightheadedness as well but denies chills, no headache, no cough or rhinorrhea, no chest pain, no SOB, no sore throat, no body aches, no abdominal pain, no diarrhea, no dysuria. The patient gets dialysis via an AV fistula on his left arm. Blood cx are now showing gram negative bacilli. Infectious diseases consult is requested to further evaluate and manage. Review of Systems - Review of Systems All systems: reviewed and no additional remarkable complaints except (as per HPI) Past Patient History - Infectious Disease Hx of Infectious Diseases: None - Past Social History Smoking Status: Light Smoker < 10 Cigarettes Daily - CARDIAC Hx Cardiac Disorders: Yes Hx Circulatory Problems: Yes (BILATERAL LL +2 EDEMA) Hx Congestive Heart Failure: Yes Hx Hypercholesterolemia: Yes Hx Hypertension: Yes - PULMONARY Hx Respiratory Disorders: Yes (SMOKES CIGARS OCCASIONALLY) - NEUROLOGICAL Hx Neurological Disorder: No - HEENT Hx HEENT Problems: No - RENAL Hx Chronic Kidney Disease: Yes Hx Dialysis: Yes ([facility]) Date of Last Dialysis Treatment: 03/16/18 Hx Kidney Stones: Yes (4MM) Hx Renal Failure: Yes - ENDOCRINE/METABOLIC Hx Endocrine Disorders: Yes Hx Diabetes Mellitus Type 2: Yes - HEMATOLOGICAL/ONCOLOGICAL Hx Blood Disorders: Yes Hx Anemia: Yes (BLOOD TRANSFUSION) - INTEGUMENTARY Hx Dermatological Problems: Yes Other/Comment: 02-16-18 BILATERAL LEG EDEMA +2 PITTING - MUSCULOSKELETAL/RHEUMATOLOGICAL Hx Musculoskeletal Disorders: Yes Hx Falls: Yes Hx Unsteady Gait: Yes (ROLLATOR) - GASTROINTESTINAL Hx Gastrointestinal Disorders: Yes (CONSTIPATION) Hx Gall Bladder Disease: Yes (GALLSTONES) - GENITOURINARY/GYNECOLOGICAL Hx Genitourinary Disorders: Yes (ANURIA) Hx Prostate Problems: Yes (BPH) - PSYCHIATRIC Hx Psychophysiologic Disorder: No Hx Substance Use: No - SURGICAL HISTORY Hx Surgeries: Yes (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 .) Other/Comment: L AV shunt - ANESTHESIA Hx Anesthesia: Yes Hx Anesthesia Reactions: No Hx Malignant Hyperthermia: No Meds Allergies/Adverse Reactions: Allergies Allergy/AdvReac Type Severity Reaction Status Date / Time No Known Allergies Allergy Verified 03/17/18 16:54 - Medications Medications: Current Medications Acetaminophen (Tylenol 325mg Tab) 650 mg PO Q6 PRN PRN Reason: TEMP>=99.5F Last Admin: 03/17/18 23:48 Dose: 650 mg Acetaminophen (Tylenol 650 Mg Supp) 650 mg RC Q6H PRN PRN Reason: TEMP>=99.5F Amiodarone HCl (Cordarone) 200 mg PO DAILY [facility] Aspirin (Aspirin Chewable) 81 mg PO DAILY [facility] Atorvastatin Calcium (Lipitor) 40 mg PO DIN [facility] Last Admin: 03/17/18 18:32 Dose: 40 mg Carvedilol (Coreg) 6.25 mg PO BID [facility] Last Admin: 03/17/18 18:15 Dose: Not Given Darbepoetin Richi (Aranesp) 100 mcg IVP ONCE ONE Stop: 03/18/18 10:01 Ferrous Sulfate (Feosol) 324 mg PO TID [facility] Last Admin: 03/17/18 18:31 Dose: 324 mg Heparin Sodium (Porcine) (Heparin) 5,000 units SC Q8 [facility]; Protocol Last Admin: 03/18/18 05:08 Dose: 5,000 units Meropenem/Sodium Chloride (Merrem Iv 500 Mg/Ns 50 Ml) 500 mg in 50 mls @ 100 mls/hr IVPB Q24H [facility]; Protocol Last Admin: 03/17/18 18:43 Dose: 100 mls/hr Insulin Human Lispro (Humalog Med) 0 units SC ACHS [facility]; Protocol Last Admin: 03/17/18 22:32 Dose: Not Given Non-Formulary Medication (Sevelamer Carbonate [Renvela]) 1 tab PO BID [facility] Last Admin: 03/17/18 18:12 Dose: Not Given Ondansetron HCl (Zofran Inj) 4 mg IVP Q4H PRN PRN Reason: Nausea/Vomiting Pantoprazole Sodium (Protonix Ec Tab) 40 mg PO 0600 [facility] Last Admin: 03/18/18 05:08 Dose: 40 mg Tamsulosin HCl (Flomax) 0.4 mg PO DAILY [facility] Vitamin B Complex/Vit C/Folic Acid (Nephro-Tyson) 1 tab PO DAILY [facility] Physical Exam - Constitutional Appears: No Acute Distress, Chronically Ill - Head Exam Head Exam: NORMAL INSPECTION - Neck Exam Neck exam: Negative for: Meningismus - Respiratory Exam Respiratory Exam: Decreased Breath Sounds - Cardiovascular Exam Cardiovascular Exam: +S1, +S2 - GI/Abdominal Exam GI & Abdominal Exam: Soft. absent: Tenderness Results - Vital Signs Recent Vital Signs: Last Vital Signs Temp 99.0 F 03/18/18 02:36 Pulse 78 03/18/18 06:30 Resp 20 03/18/18 06:00 BP 89/52 L 03/18/18 06:30 Pulse Ox 97 03/17/18 17:30 - Labs Result Diagrams: 03/18/18 08:15 03/18/18 03:50 Labs: Laboratory Results - last 24 hr 03/17/18 03/17/18 03/17/18 13:00 13:10 13:10 WBC 21.4 H D RBC 2.39 L Hgb 7.4 L D Hct 23.9 L MCV 100.0 D MCH 31.0 MCHC 31.0 RDW 19.0 H Plt Count 142 MPV 10.0 Gran % 87.9 H Lymph % (Auto) 5.8 L Bennett % (Auto) 6.3 H Eos % (Auto) 0.0 L Baso % (Auto) 0.0 Gran # 18.82 H Lymph # (Auto) 1.2 Bennett # (Auto) 1.4 H Eos # (Auto) 0.0 Baso # (Auto) 0.01 PT 21.2 H INR 1.84 APTT 35.7 pO2 VBG pH VBG pCO2 VBG HCO3 VBG Total CO2 VBG O2 Sat (Calc) VBG Base Excess VBG Potassium Sodium Chloride Glucose Lactate FiO2 Potassium Carbon Dioxide Anion Gap BUN Creatinine Est GFR ( Amer) Est GFR (Non-Af Amer) POC Glucose (mg/dL) Random Glucose Calcium Phosphorus Magnesium Total Bilirubin Direct Bilirubin AST ALT Alkaline Phosphatase Total Creatine Kinase Troponin I Total Protein Albumin Globulin Albumin/Globulin Ratio Prostate Specific Ag 43.4 H TSH 3rd Generation Venous Blood Potassium Influenza Typ A,B (EIA) Blood Type Antibody Screen Crossmatch BBK History Checked 03/17/18 03/17/18 03/17/18 13:10 13:10 13:10 WBC RBC Hgb Hct MCV MCH MCHC RDW Plt Count MPV Gran % Lymph % (Auto) Bennett % (Auto) Eos % (Auto) Baso % (Auto) Gran # Lymph # (Auto) Bennett # (Auto) Eos # (Auto) Baso # (Auto) PT INR APTT pO2 VBG pH VBG pCO2 VBG HCO3 VBG Total CO2 VBG O2 Sat (Calc) VBG Base Excess VBG Potassium Sodium 138 Chloride 97 L Glucose Lactate FiO2 Potassium 4.9 Carbon Dioxide 31 Anion Gap 14 BUN 54 H Creatinine 6.4 H Est GFR ( Amer) 11 Est GFR (Non-Af Amer) 9 POC Glucose (mg/dL) Random Glucose 165 H Calcium 8.8 Phosphorus Magnesium 2.0 Total Bilirubin 1.4 H Direct Bilirubin AST 39 ALT 24 Alkaline Phosphatase 133 H Total Creatine Kinase Troponin I 0.16 H* D Total Protein 8.0 Albumin 3.8 Globulin 4.2 Albumin/Globulin Ratio 0.9 L Prostate Specific Ag TSH 3rd Generation 2.84 Venous Blood Potassium Influenza Typ A,B (EIA) Blood Type A POSITIVE Antibody Screen Negative Crossmatch See Detail BBK History Checked Patient has bt 03/17/18 03/17/18 03/17/18 13:10 17:30 18:00 WBC RBC Hgb Hct MCV MCH MCHC RDW Plt Count MPV Gran % Lymph % (Auto) Bennett % (Auto) Eos % (Auto) Baso % (Auto) Gran # Lymph # (Auto) Bennett # (Auto) Eos # (Auto) Baso # (Auto) PT INR APTT pO2 49 40 VBG pH 7.42 7.48 H VBG pCO2 47.0 41.0 VBG HCO3 30.5 H 30.5 H VBG Total CO2 31.9 H 31.8 H VBG O2 Sat (Calc) 85.8 H 79.8 H VBG Base Excess 5.1 H 6.4 H VBG Potassium 4.8 4.5 Sodium 137.0 138.0 Chloride 99.0 101.0 Glucose 162 H 120 H Lactate 2.2 H 1.4 FiO2 21.0 21.0 Potassium Carbon Dioxide Anion Gap BUN Creatinine Est GFR ( Amer) Est GFR (Non-Af Amer) POC Glucose (mg/dL) 126 H Random Glucose Calcium Phosphorus Magnesium Total Bilirubin Direct Bilirubin AST ALT Alkaline Phosphatase Total Creatine Kinase Troponin I Total Protein Albumin Globulin Albumin/Globulin Ratio Prostate Specific Ag TSH 3rd Generation Venous Blood Potassium 4.8 4.5 Influenza Typ A,B (EIA) Blood Type Antibody Screen Crossmatch BBK History Checked 03/17/18 03/17/18 03/18/18 19:48 22:27 00:50 WBC RBC Hgb Hct MCV MCH MCHC RDW Plt Count MPV Gran % Lymph % (Auto) Bennett % (Auto) Eos % (Auto) Baso % (Auto) Gran # Lymph # (Auto) Bennett # (Auto) Eos # (Auto) Baso # (Auto) PT INR APTT pO2 VBG pH VBG pCO2 VBG HCO3 VBG Total CO2 VBG O2 Sat (Calc) VBG Base Excess VBG Potassium Sodium Chloride Glucose Lactate FiO2 Potassium Carbon Dioxide Anion Gap BUN Creatinine Est GFR ( Amer) Est GFR (Non-Af Amer) POC Glucose (mg/dL) 148 H Random Glucose Calcium Phosphorus Magnesium Total Bilirubin Direct Bilirubin AST ALT Alkaline Phosphatase Total Creatine Kinase 117 Troponin I 0.14 H* Total Protein Albumin Globulin Albumin/Globulin Ratio Prostate Specific Ag TSH 3rd Generation Venous Blood Potassium Influenza Typ A,B (EIA) Negative for flu a/b Blood Type Antibody Screen Crossmatch BBK History Checked 03/18/18 03:50 WBC RBC Hgb Hct MCV MCH MCHC RDW Plt Count MPV Gran % Lymph % (Auto) Bennett % (Auto) Eos % (Auto) Baso % (Auto) Gran # Lymph # (Auto) Bennett # (Auto) Eos # (Auto) Baso # (Auto) PT INR APTT pO2 VBG pH VBG pCO2 VBG HCO3 VBG Total CO2 VBG O2 Sat (Calc) VBG Base Excess VBG Potassium Sodium 137 Chloride 101 Glucose Lactate FiO2 Potassium 4.8 Carbon Dioxide 29 Anion Gap 12 BUN 65 H Creatinine 6.6 H Est GFR ( Amer) 10 Est GFR (Non-Af Amer) 8 POC Glucose (mg/dL) Random Glucose 102 Calcium 8.1 L Phosphorus 4.4 Magnesium 2.0 Total Bilirubin 0.9 Direct Bilirubin 0.9 H AST 30 ALT 30 Alkaline Phosphatase 97 Total Creatine Kinase 109 Troponin I 0.15 H* Total Protein 6.4 Albumin 3.0 Globulin 3.4 Albumin/Globulin Ratio 0.9 L Prostate Specific Ag TSH 3rd Generation Venous Blood Potassium Influenza Typ A,B (EIA) Blood Type Antibody Screen Crossmatch BBK History Checked Assessment & Plan - Assessment and Plan (Free Text) Plan: Assessment Sepsis due to gram negative bacilli bacteremia, consider related to dialysis, R/O intra-abdominal infection R/O UTI history of infected right foot ulcers with Serratia chronic CHF chronic renal failure on dialysis DM morbid obesity with BMI 40 obstructive sleep apnea on CPAP sciatica HTN S/P left foot debridement (2015) Plan patient given a dose of IV Vancomycin and now is on Merrem pending identification and sensitivities of the gram negative bacilli in the blood; will repeat blood cx tomorrow; will get urine cx and urinalysis will get Ultrasound of the abdomen will monitor clinically
--- NOTE | 2018-03-18 14:53 | PN ---
DATE: 03/18/2018 SUBJECTIVE: The patient is seen lying in the bed in room 270, bed 1. The patient is comfortable. The patient denies any nausea, vomiting, or diarrhea. Denies constipation. Denies hemoptysis, hematemesis, or melena. Telemetry shows sinus rhythm. PHYSICAL EXAMINATION: VITAL SIGNS: T-max in the last 24 hours is 102.2, down to 100.1, down to 99.6. Blood pressure is averaging around high 80 systolic and diastolic in 50s and 40s. Heart rate 78 to 84 to 94. Respiration 20, O2 sat is 95% to 97% on room air. GENERAL: The patient is seen lying in the bed. The patient is comfortable, alert, awake, responsive, does not appear to be in any distress. HEAD: Normocephalic, atraumatic. HEENT: Shows pale conjunctivae. Dry oral mucosa. No neck rigidity. CHEST: Kyphosis. Positive left upper chest defibrillator noted. Positive kyphosis. LUNGS: Examination shows occasional upper lung field rhonchi noted. CARDIOVASCULAR: S1, S2, regular rhythm. Questionable soft systolic murmur, left sternal border, right second intercostal space, left second intercostal space noted. EXTREMITIES: Positive contractures of the upper extremity noted. Positive left upper extremity AV fistula noted. Positive questionable trace swelling of the lower extremity noted. Positive foot ulceration noted of the left foot. Positive trace swelling noted. DIAGNOSTICS: WBC 19, hemoglobin and hematocrit 6.7 and 21.5, platelet 133. Granulocytes 88% segs. Sodium 137, potassium 4.8, chloride 101, CO2 of 29, anion gap 12, BUN 65, creatinine 6.6, glucose 148, 92,128, calcium 8.1, phosphorus 4.4, magnesium 2. CPK is negative. Troponin is up to 1.16, down to 1.14 and 0.15. TSH was normal at 2.84. PSA is 43.4. Blood cultures are growing gram-negative ct and wound cultures from the left foot is growing gram-positive cocci. Blood type is A+. IMPRESSION: 1. Gram-negative ct bacteremia and sepsis, etiology unclear at this time. 2. Rule out endocarditis versus automatic implantable cardioverter defibrillator lead infection. 3. Gram-positive cocci, left foot ulceration. 4. High-grade fever. 5. Tachycardia. 6. Hypotension. 7. Leukocytosis with granulocytosis. 8. Severe symptomatic anemia with decreasing hemoglobin and hematocrit. 9. Questionable mild coagulopathy. 10. Lactic acidosis. 11. End-stage renal disease, hemodialysis dependent, three times a week via the left upper extremity arteriovenous fistula. 12. Elevated troponin, etiology undetermined, questionable coronary ischemia versus elevated troponin in end-stage renal disease patient. 13. Elevated prostate-specific antigen of 43. 14. Gram-positive cocci left foot ulceration. 15. Gram-negative ct bacteremia and sepsis. 16. A+ blood type. 17. Cardiomegaly. 18. Right axis deviation. 19. Sepsis and bacteremia. 20. Left foot ulceration. 21. End-stage renal disease, hemodialysis dependent. 22. Dilated cardiomyopathy. 23. Elevated troponin. 24. End-stage renal disease, hemodialysis dependent. 25. History of hypertension, but presently hypotension. 26. Dilated cardiomyopathy. 27. Secondary hyperparathyroidism. 28. Left foot first distal phalanx amputation. 29. Contracted gallbladder with mild mural thickening and cholelithiasis. 30. Pancreatic atrophy with pancreatic fatty infiltration. 31. Right nonobstructing nephrolithiasis. 32. Moderate ascites. 33. Urinary bladder wall thickening with possible bladder outlet obstruction versus cystitis. 34. Prostatomegaly. 35. Multilevel lumbar disc degenerative disease. 36. Moderate ascites. PLAN: At this time, the patient has been ordered repeat blood cultures, repeat labs ordered. Current consultation, Infectious Disease, Nephrology, Urology, Cardiology, Podiatry. TCU evaluation ordered. The patient has been ordered transfusion of 2 units of PRBC today on dialysis. The patient was given Aranesp 100 mcg x1 today. The patient is on aspirin 81 mg daily, amiodarone 200 mg daily, ferrous sulfate 325 three times a day, Flomax 0.4 mg daily, heparin 5000 subcutaneously every 8 hours, Humalog medium dose sliding scale coverage before meals, Lipitor 40 mg daily, meropenem 500 mg IV every 24 hours, Nephro-Tyson 1 tablet daily. The patient is started on midodrine 2.5 mg three times a day. The patient's , Coreg has been held at this time. The patient is started on ProAmatine 2.5 mg three times a day, Protonix 40 mg daily, Renvela 1 tablet twice a day. The patient is on Tylenol p.o. suppository every 6 hours p.r.n. The patient received a dose of vancomycin yesterday and Zofran 4 mg IV every 4 hours p.r.n. Abdominal ultrasound has been ordered by Infectious Disease. Repeat EKG ordered. The patient is on renal diet. Transesophageal echo ordered. The patient has been ordered physical therapy and occupational therapy. The patient has been updated about his condition, diagnosis, test results at length. All questions concerned answered. The patient's overall prognosis is guarded to poor because of multiple comorbidity and decompensating state. Dictated and electronically signed, not read. Geoffrey Thacker MD
--- NOTE | 2018-03-18 16:22 | PN ---
DATE: 03/18/2018 SUBJECTIVE: The patient is currently seen sleeping in bed. He is awaiting transport to dialysis. His hemoglobin had dropped to 6.7. He will be receiving 2 units of packed red blood cells on dialysis. Foot cultures of the left foot and blood cultures are positive, he remains on IV antibiotic therapy. He had been visited by the manager motor earlier today. MEDICATIONS: Medication list reviewed. The patient is currently on aspirin, amiodarone, Feosol, Flomax, subcutaneous heparin, insulin, Lipitor, meropenem, Nephro-Tyson, ProAmatine, Protonix, Renvela, Tylenol p.r.n. and Zofran p.r.n. OBJECTIVE: INTAKE/OUTPUT: Intake is 1240, output is zero. VITAL SIGNS: Blood pressure presently is 81/48, temperature is 99 with a T-max earlier this morning of 100.1. Respiratory rate is 20, pulse of 78 and regular. HEENT: Exam shows him to be normocephalic, atraumatic. Conjunctivae are pale. Sclerae are nonicteric. NECK: Supple. No neck vein distention. CHEST: Clear to auscultation and percussion. No rales, rhonchi or wheezing. CARDIOVASCULAR: Shows a regular rate and rhythm with MR/TR/PI. No S3, no S4, no rub. Positive AICD. ABDOMEN: Soft. Bowel sounds normal, no rebound, guarding or masses. EXTREMITIES: Diminished lower extremity pulses bilaterally. He has a dressing over his left foot. No odor. No drainage into the dressing. No cyanosis, clubbing or edema of the lower extremity. LABORATORY DATA AND IMAGING: CBC, white blood cell count today 19,000, slightly improved. Hemoglobin is down from 7.4-6.7. The patient will receive 2 units of packed red blood cells on dialysis today. Platelet count is 133,000. Chemistries, normal electrolytes. BUN 65 with a creatinine of 6.6. Glucose is 102. Calcium is 8.1, corrects to normal for an albumin of 3. Phosphorus is 4.4 with a magnesium level of 2 Troponins are made borderline elevated at 0.14 - 0.15. Microbiology, blood cultures are positive for gram-positive cocci. Blood cultures are positive for gram-negative ct. ASSESSMENT: 1. Leukocytosis with an infected left foot wound. Positive bacteremia. The patient remains on IV antibiotic therapy. No evidence for osteomyelitis on x-ray studies. In the past, the patient grew out E-coli from his foot Corynebacterium and coag-negative staph. We will await final cultures. The patient is being followed by ID and Podiatry. 2. History of end-stage renal disease. The patient will continue Wednesday, Wednesday and Wednesday dialysis. Dialysis is scheduled to start shortly. 3. History of hypertension. With his cardiomyopathy, the patient is hypotensive. He is on no blood pressure medications at all except for hydralazine for afterload reduction. 4. History of dilated cardiomyopathy, ejection fraction 22% with MR/TR/PI. Status post automated implantable cardioverter defibrillator in January 2017. The patient has mild elevations of troponin which are likely nonsignificant. The patient follows with cardiology and has been seen by Cardiology in the hospital. 5. History of severe anemia. The patient had a negative bone marrow biopsy, negative GI workup. He likely has bone marrow suppression from his lower extremity foot infection complicating the situation. The patient will receive 2 units of packed red blood cells today. 6. History of secondary hyperparathyroidism. The patient will continue binder therapy and we will continue to monitor his phosphorus level. the level today is 4.4. 7. Elevated prostate-specific antigen level. The patient to be evaluated by Urology. PLAN: 1. Hemodialysis today, Wednesday, Wednesday and Wednesday. 2. Continue antibiotic therapy pending final cultures. 3. Podiatry evaluation and wound care. 4. evaluation for his elevated PSA level. 5. Agree with transfusing the patient to a hemoglobin of 09-10. He will received 2 units of packed red blood cells today on dialysis. 6. Close renal followup during hospitalization. Chidi Ramirez MD
[2018-03-18] MEDS ORDERED: Darbepoetin Alfa 100 mcg/ml Inj SC ONE (18:53)
--- NOTE | 2018-03-18 20:26 | CARD ---
APPROVED REPORT Date of service: 03/18/2018 EKG Measurement Heart [id number] <Conclusion> Normal sinus rhythm Right axis deviation Low voltage QRS Poor R wave progression in Precordial leads Abnormal ECG
[2018-03-18] MEDS: MEROPENEM 500 MG in NS 500 MG/50 ML BAG IVPB SCH (21:36)
[2018-03-19] MEDS: Pantoprazole 40 mg EC Tab PO SCH (05:25)
[2018-03-19] MEDS: Insulin Lispro (humaLOG) MEDIUM Coverage SC SCH ×4 (07:53→23:11)
[2018-03-19 08:21] LABS: BASO # 0.01 K/mm3 (0.0-2.0); BASO % 0.1 % (0.0-3.0); EOS # 0.2 (0.0-0.7); EOS % 1.1 % (1.5-5.0); GRAN # 11.62 (1.4-6.5); GRAN % 82.3 % (50.0-68.0); HEMOGLOBIN 7.4 g/dL (14.0-18.0); LYMPH # 1.2 (1.2-3.4); LYMPH % 8.6 % (22.0-35.0); MEAN CELL VOLUME 95.1 fl (80.0-105.0); MEAN CORPUSCULAR HEMOGLOBIN 30.3 pg (25.0-35.0); MEAN CORPUSCULAR HGB CONC 31.9 g/dl (31.0-37.0); MEAN PLATELET VOLUME 9.9 fl (7.0-11.0); MONO # 1.1 (0.1-0.6); MONO % 7.9 % (1.0-6.0); RBC 2.44 10^6/uL (3.5-6.1); RED CELL DISTRIBUTION WIDTH 18.5 % (11.5-14.5); WHITE BLOOD COUNT 14.1 10^3/uL (4.5-11.0)
[2018-03-19 08:36] LABS: ALB/GLOB RATIO 0.9 (1.1-1.8); ALBUMIN 3.2 g/dL (3.0-4.8); CALCIUM 7.9 mg/dL (8.4-10.5)
--- NOTE | 2018-03-19 09:20 | CP.PCM.PN ---
<Dayne Garg - Last Filed: 03/19/18 10:07> Subjective - Date & Time of Evaluation Date of Evaluation: 03/19/18 Time of Evaluation: 09:20 - Subjective Subjective: Podiatry progress note for Dr. Amos 67M seen and evaluated at bedside with Dr. Amos. Patient sitting up in chair comfortably. Reports mild dizziness that has improved since admission. Denies pain or discomfort in left foot. States that he does feel better than he has been and states he is due for another blood transfusion. Denies N/V/F/C and has no other acute complaints. Objective - Vital Signs/Intake and Output Vital Signs (last 24 hours): Temp Pulse Resp BP Pulse Ox 101.5 F H 89 20 92/58 L 93 L 03/19/18 06:29 03/19/18 06:00 03/19/18 06:00 03/19/18 06:00 03/19/18 06:00 Intake and Output: 03/19/18 03/19/18 06:59 18:59 Intake Total 300 Balance 300 - Medications Medications: Current Medications Acetaminophen (Tylenol 325mg Tab) 650 mg PO Q6 PRN PRN Reason: TEMP>=99.5F Last Admin: 03/19/18 06:29 Dose: 650 mg Acetaminophen (Tylenol 650 Mg Supp) 650 mg RC Q6H PRN PRN Reason: TEMP>=99.5F Amiodarone HCl (Cordarone) 200 mg PO DAILY [facility] Last Admin: 03/18/18 11:20 Dose: Not Given Aspirin (Aspirin Chewable) 81 mg PO DAILY [facility] Last Admin: 03/18/18 11:18 Dose: 81 mg Atorvastatin Calcium (Lipitor) 40 mg PO DIN [facility] Last Admin: 03/18/18 21:37 Dose: 40 mg Ferrous Sulfate (Feosol) 324 mg PO TID [facility] Last Admin: 03/18/18 21:37 Dose: 324 mg Heparin Sodium (Porcine) (Heparin) 5,000 units SC Q8 [facility]; Protocol Last Admin: 03/19/18 05:24 Dose: 5,000 units Meropenem/Sodium Chloride (Merrem Iv 500 Mg/Ns 50 Ml) 500 mg in 50 mls @ 100 mls/hr IVPB Q24H [facility]; Protocol Stop: 03/24/18 16:01 Last Admin: 03/18/18 21:36 Dose: 100 mls/hr Insulin Human Lispro (Humalog Med) 0 units SC ACHS [facility]; Protocol Last Admin: 03/19/18 07:53 Dose: Not Given Midodrine (Proamatine) 2.5 mg PO TID [facility] Last Admin: 03/18/18 22:27 Dose: Not Given Non-Formulary Medication (Sevelamer Carbonate [Renvela]) 1 tab PO BID [facility] Last Admin: 03/18/18 18:22 Dose: Not Given Ondansetron HCl (Zofran Inj) 4 mg IVP Q4H PRN PRN Reason: Nausea/Vomiting Pantoprazole Sodium (Protonix Ec Tab) 40 mg PO 0600 [facility] Last Admin: 03/19/18 05:25 Dose: 40 mg Tamsulosin HCl (Flomax) 0.4 mg PO DAILY [facility] Last Admin: 03/18/18 11:18 Dose: 0.4 mg Vitamin B Complex/Vit C/Folic Acid (Nephro-Tyson) 1 tab PO DAILY [facility] Last Admin: 03/18/18 11:18 Dose: 1 tab - Labs Labs: 03/19/18 07:30 03/19/18 07:30 PT 21.2 SECONDS (9.4-12.5) H 03/17/18 13:10 INR 1.84 03/17/18 13:10 APTT 35.7 Seconds (25.1-36.5) 03/17/18 13:10 - Constitutional Appears: Well, Non-toxic, No Acute Distress - Head Exam Head Exam: ATRAUMATIC, NORMOCEPHALIC - Extremities Exam Additional comments: Vasc: DP and PT faintly palpable, CFT <3 seconds X 10, no edema, TG warm to warm, mild edema appreciated circumfrentially to b/l lower extremities Ortho: HAV deformities noted bilaterally, MMT 5/5 bilaterally, no posterior calf pain noted Neuro: Gross sensation intact, protective sensation diminished Derm: 2 cm X 1.5 cm wound at the dorso-medial aspect of the left 1st MTPJ, fibrogranular wound base noted, no drainage noted, minimal erythema left 1st MTPJ, no malodor, no probe to bone, no tunneling or tracking, no cellulitis appreciated, no clinical signs of infection at this time - Psychiatric Exam Psychiatric exam: Normal Affect, Normal Mood Assessment and Plan - Assessment and Plan (Free Text) Assessment: 67M with L foot ulceration. Plan: Patient seen and evaluated with Dr. 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 No evidence of OM Will continue to follow <Kurtis Amos - Last Filed: 03/23/18 17:48> Objective - Vital Signs/Intake and Output Vital Signs (last 24 hours): Temp Pulse Resp BP Pulse Ox 98.8 F 76 18 111/53 L 100 03/23/18 17:46 03/23/18 17:46 03/23/18 17:46 03/23/18 17:46 03/23/18 13:21 Intake and Output: 03/23/18 03/23/18 06:59 18:59 Intake Total 1080 Balance 1080 - Medications Medications: Current Medications Acetaminophen (Tylenol 325mg Tab) 650 mg PO Q6 PRN PRN Reason: TEMP>=99.5F Last Admin: 03/20/18 05:59 Dose: 650 mg Acetaminophen (Tylenol 650 Mg Supp) 650 mg RC Q6H PRN PRN Reason: TEMP>=99.5F Amiodarone HCl (Cordarone) 200 mg PO DAILY [facility] Last Admin: 03/23/18 13:49 Dose: 200 mg Aspirin (Aspirin Chewable) 81 mg PO DAILY [facility] Last Admin: 03/23/18 13:49 Dose: 81 mg Atorvastatin Calcium (Lipitor) 40 mg PO DIN [facility] Last Admin: 03/23/18 17:13 Dose: 40 mg Collagenase (Santyl) 0 gm TOP DAILY [facility] Last Admin: 03/23/18 13:45 Dose: Not Given Ferrous Sulfate (Feosol) 324 mg PO TID [facility] Last Admin: 03/23/18 17:13 Dose: 324 mg Meropenem/Sodium Chloride (Merrem Iv 500 Mg/Ns 50 Ml) 500 mg in 50 mls @ 100 mls/hr IVPB Q24H [facility]; Protocol Stop: 03/24/18 16:01 Last Admin: 03/23/18 17:14 Dose: 100 mls/hr Insulin Human Lispro (Humalog Med) 0 units SC ACHS [facility]; Protocol Last Admin: 03/23/18 17:11 Dose: Not Given Midodrine (Proamatine) 5 mg PO 0800,1200,1600 [facility] Last Admin: 03/23/18 17:14 Dose: 5 mg Non-Formulary Medication (Sevelamer Carbonate [Renvela]) 1 tab PO BID [facility] Last Admin: 03/23/18 17:14 Dose: Not Given Ondansetron HCl (Zofran Inj) 4 mg IVP Q4H PRN PRN Reason: Nausea/Vomiting Pantoprazole Sodium (Protonix Ec Tab) 40 mg PO 0600 [facility] Last Admin: 03/23/18 05:23 Dose: 40 mg Tamsulosin HCl (Flomax) 0.4 mg PO DAILY [facility] Last Admin: 03/23/18 13:49 Dose: 0.4 mg Vitamin B Complex/Vit C/Folic Acid (Nephro-Tyson) 1 tab PO DAILY [facility] Last Admin: 03/23/18 13:49 Dose: 1 tab - Labs Labs: 03/23/18 09:15 03/23/18 09:15 PT 14.5 SECONDS (9.4-12.5) H 03/21/18 07:15 INR 1.26 03/21/18 07:15 APTT 28.9 Seconds (25.1-36.5) 03/21/18 07:15 Attending/Attestation - Attestation I have personally seen and examined this patient.: Yes I have fully participated in the care of the patient.: Yes I have reviewed all pertinent clinical information, including history, physical exam and plan: Yes
[2018-03-19] MEDS: Multivitamin Vitamin B Complex (Nephro-Vite) Tab PO SCH (09:24)
[2018-03-19] MEDS: SEVELAMER CARBONATE PO SCH ×2 (10:35→17:22)
[2018-03-19] MEDS: Collagenase 250 Units/gm Ointment(30 gm) TOP SCH (10:35)
--- NOTE | 2018-03-19 10:43 | US ---
Date of service: 03/18/2018 HISTORY: rule out intra-abdominal infection COMPARISON: CT scan of the abdomen pelvis dated 03/17/2018 TECHNIQUE: Sonographic evaluation of the abdomen. FINDINGS: LIVER: Measures 17.1 cm. Prominent caudate lobe. Nodular contour. Normal echogenicity of the liver parenchyma. No mass. No intrahepatic bile duct dilatation. Trace perihepatic ascites. GALLBLADDER: Minimal cholelithiasis with gallbladder wall thickening/edema without significant gallbladder distension. Sonographic Link's sign was not elicited. COMMON BILE DUCT: Measures 5 mm. No stones. No dilatation. PANCREAS: Unremarkable as visualized. No mass. No ductal dilatation. RIGHT KIDNEY: Measures 10.9 x 4.5 x 5.7cm. Normal echogenicity. No calculus, mass, or hydronephrosis. LEFT KIDNEY: Measures 10.7 x 4.9 x 5.7cm. Normal echogenicity. No calculus, mass, or hydronephrosis. SPLEEN: Normal in size and contour. No mass. AORTA: No aneurysmal dilatation. IVC: Unremarkable. OTHER FINDINGS: None. IMPRESSION: Hepatic cirrhosis with trace perihepatic ascites. Minimal cholelithiasis without significant gallbladder distension. There is gallbladder wall thickening/edema; however, gallbladder wall thickening is a nonspecific finding which can be seen with ascites, hepatitis, cholecystitis, CHF or hypoproteinemic states. Clinical correlation is recommended. If clinical concern for gallbladder pathology exists, a HIDA scan may be performed. Please note, given the above findings, MRCP will neither confirm nor exclude acute cholecystitis. This is somewhat discordant with the findings reported by teleradiology, as based on imaging findings alone, acute cholecystitis can neither be confirmed nor excluded.
--- NOTE | 2018-03-19 11:58 | PN ---
DATE: 03/19/2019 CARDIOLOGY FOLLOWUP SUBJECTIVE: The patient received 2 units of transfusion of packed red blood cells yesterday. He is still complaining of weakness. PHYSICAL EXAMINATION: VITAL SIGNS: Blood pressure 92/58, heart rates in the 80s and temperature is 101. NECK: Negative JVD. LUNGS: Without rales. HEART: Reveals S1 and S2. EXTREMITIES: Without change. LABORATORY DATA: Hemoglobin is 7.4, post transfusion. Chemistries, potassium is 4.2. IMPRESSION: 1. Persistent weakness. 2. Marked anemia. 3. End-stage dilated cardiomyopathy. 4. No significant coronary artery disease on catheterization at [facility]. 5. End-stage renal disease on dialysis. Given these findings, the patient is for another unit of packed red blood cells today. We will start the patient on IV dobutamine. Kamari Watt MD
--- NOTE | 2018-03-19 12:51 | PN ---
DATE: 03/19/2018 SUBJECTIVE: The patient is admitted and seen earlier today in 270, bed one. No fevers. No chills. PHYSICAL EXAMINATION: GENERAL: He is awake, doing well on exam. VITAL SIGNS: Temperature 98; however, T-max earlier was 101.5; respiratory rate 18, heart rate 93. HEENT: Examination of HEENT is unremarkable. NECK: Supple. LUNGS: Decreased breath sounds. HEART: Normal S1, S2. ABDOMEN: Soft, nontender. LABORATORY DATA: Laboratory examination reveals a white count of 14,100, hemoglobin of 7, BUN of 41, creatinine of 4.84, troponin is 0.15. Serology, influenza is negative. Microbiology reveals the blood culture is positive for gram-negative ct. Left foot cultures are gram-positive cocci. Review of orders reveals the patient to be on meropenem at 500 mg every 24 hours. ASSESSMENT AND PLAN: The patient is a 67-year-old male with chronic congestive heart failure, renal failure and hemodialysis, diabetes, morbid obesity, BMI of 40, obstructive sleep apnea, sciatica, hypertension, status post left foot debridement in 2015, admitted with fevers and chills and the patient with sepsis with gram-negative ct bacteremia, dialysis catheter versus intra-abdominal versus in a diabetic, currently on meropenem. Awaiting for identification sensitivity of the gram-negative ct. The patient's ultrasound of the abdomen is pending. CAT scan of the abdomen and pelvis is reviewed. The liver is unremarkable. Gallbladder and bile ducts are small gallstone. No biliary dilatation or ductal dilatation. No urinalysis is available. We will request a stat urinalysis and urine culture. We will also repeat the blood culture which was ordered yesterday and results are pending. We will follow with you. May require removal of the catheter. Charlie Taylor MD
[2018-03-19] MEDS: DOBUTamine 500mg/250ml D5W 500 MG/250 ML BAG IV PRN (14:55)
[2018-03-19 15:07] LABS: BASO # 0.01 K/mm3 (0.0-2.0); BASO % 0.1 % (0.0-3.0); EOS # 0.1 (0.0-0.7); EOS % 1.1 % (1.5-5.0); GRAN # 9.85 (1.4-6.5); GRAN % 82.9 % (50.0-68.0); HEMOGLOBIN 8.7 g/dL (14.0-18.0); LYMPH % 8.3 % (22.0-35.0); MEAN CELL VOLUME 93.2 fl (80.0-105.0); MEAN CORPUSCULAR HEMOGLOBIN 29.8 pg (25.0-35.0); MEAN PLATELET VOLUME 9.3 fl (7.0-11.0); MONO # 0.9 (0.1-0.6); MONO % 7.6 % (1.0-6.0); RBC 2.92 10^6/uL (3.5-6.1); RED CELL DISTRIBUTION WIDTH 18.4 % (11.5-14.5); WHITE BLOOD COUNT 11.9 10^3/uL (4.5-11.0)
[2018-03-19] MEDS: MEROPENEM 500 MG in NS 500 MG/50 ML BAG IVPB SCH (17:28)
--- NOTE | 2018-03-19 17:35 | CARD ---
APPROVED REPORT Date of service: 03/19/2018 EKG Measurement Heart [id number] <Conclusion> Normal sinus rhythm with sinus arrhythmia Low voltage QRS Left posterior fascicular block Prolonged QT Abnormal ECG
[2018-03-19] MEDS: Lactobacillus Acidophilus 500 MU Cap PO SCH (17:52)
[2018-03-19] MEDS: Vancomycin 25 MG/ML PO SCH ×2 (17:53→23:05)
--- NOTE | 2018-03-19 20:16 | PN ---
DATE: 03/19/2018 SUBJECTIVE: The patient is seen lying in the bed. The patient had a large bowel movement and which was noted to have melanotic stool, which was guaiac positive. The patient had a temperature this morning of 101.5. The patient had loose bowel movements x2. The melanotic smell was noted by the nurses. PHYSICAL EXAMINATION VITAL SIGNS: T-max is 101.5, down to 98, blood pressure 90/50, 95/59, 94/60 and 94/55, respiration 18, O2 sat is 93 to 95-97%. Telemetry shows sinus rhythm, heart rate 89, 93, 88, and 80. HEAD: Normocephalic and atraumatic. HEENT: Shows pale conjunctivae. Anicteric sclerae. No oropharyngeal lesion. No neck rigidity. Positive upper chest AICD defibrillator noted. Positive kyphosis noted. LUNGS: Shows no audible crackle, rales or wheezing. ABDOMEN: Soft. Positive bowel sounds. No palpable hepatosplenomegaly noted. GENITALIA: Male. RECTAL: Deferred. EXTREMITY: Shows positive foot dressing. Trace swelling noted. Positive contractures of the upper extremity noted. Gait examination is not tested. MUSCULOSKELETAL: Shows a body mass index of 27.2. DIAGNOSTICS: From this morning and later in the afternoon; CBC shows a WBC of 14.1. Repeat CBC later on shows WBC of 11.9, hemoglobin/hematocrit in the morning 7.4 and 23.2, repeat, hemoglobin/hematocrit 8.7 and 27.2, platelet 135 and 129,000, granulocyte 83%. Sodium 135, potassium 4.2, chloride 96, CO2 31, anion gap 13, BUN 41, creatinine 4.8, GFR 12, glucose 89, calcium 7.9, phosphorus is 3.8, magnesium 2.0, AST 33, ALT 23, alk phos 127. Troponin peak . Stool occult blood positive. Influenza serology negative. Repeat blood cultures no growth yet. Left foot cultures are growing coagulase-negative Staphylococcus aureus and blood cultures are growing gram-negative rods. The patient received 3 units of PRBC. The patient had an EKG done today which shows sinus rhythm, left posterior fascicular block. The patient seen by product representative Dr. Kamari Watt, Infectious Disease and gastroenterology. Their recommendation was noted. IMPRESSION AND PLAN: 1. High-grade fever. 2. Transient tachycardia. 3. Leukocytosis with granulocytosis. 4. Normocytic anemia, transfusion dependent with decreasing hemoglobin/hematocrit. 5. Transient lactic acidosis. 6. Elevated troponin of 0.16, etiology undetermined. 7. Questionable gastrointestinal bleed with positive stool occult blood. 8. Coagulase-negative Staphylococcus aureus left foot infection and ulcer. 9. Gram-negative ct bacteremia and sepsis. 10. Left posterior fascicular block. 11. End-stage dilated cardiomyopathy status post automatic implantable cardioverter-defibrillator implant. 12. Nonischemic dilated cardiomyopathy. 13. Left foot great toe ulceration. 14. Questionable diarrhea. 15. Hepatic cirrhosis with trace perihepatic ascites. 16. Hepatomegaly. 17. Questionable fatty liver. 18. Thickened gallbladder wall with wall edema and cholelithiasis. Questionable cholecystitis. 19. Left foot first distal phalanx amputation. 20. Deconditioning. 21. Gait dysfunction. 22. Cholelithiasis. 23. Pancreatic atrophia and fatty infiltration. 24. Right nonobstructing nephrolithiasis. 25. Ascites. 26. Questionable bladder outlet obstruction versus cystitis. 27. Prostatomegaly. 28. Lumbar spine degenerative disc disease. 29. Right axis deviation, left posterior fascicular block. 30. Secondary hyperparathyroidism, secondary to end-stage renal disease, hemodialysis dependent. 31. Anemia of chronic disease. 32. Diarrhea, etiology undetermined. 33. Dobutamine dependent nonischemic dilated cardiomyopathy. 34. Elevated prostate-specific antigen. 35. Hyperlipidemia. 36. Hypotension. 37. Secondary hyperparathyroidism. PLAN: At this time, the patient was already transfused 1 unit of PRBC and the patient has been ordered to have transfusion of one or two more units of PRBC on dialysis. The patient has been ordered repeat labs. Repeat blood cultures reports are pending. Current consultation, Infectious Disease, Nephrology, Urology, Cardiology, Gastroenterology, and Podiatry. TCU evaluation ordered. CURRENT MEDICATIONS: The patient received Aranesp 100 mcg, the patient is on aspirin 81 mg daily, Bacid 1 capsule twice a day for four doses, amiodarone 200 mg daily, dobutamine drip at 5 mcg/kg/minute, ferrous sulfate 324 three times a day, Flomax 0.4 mg daily, Humalog medium dose sliding scale coverage a.c. and at bedtime, Lipitor 40 mg daily meropenem 500 mg IV every 24 hours, Nephro-Tyson 1 tablet daily, midodrine 5 mg three times a day which is increased today, Protonix 40 mg daily, Santyl daily, Renvela 1 tablet twice a day, Tylenol 650 mg p.o. suppository every 6 hours p.r.n., mg p.o. q.i.d. has been ordered. Stool C. diff antigen toxin has been ordered. The patient has been ordered out of bed to chair, physical therapy, occupational therapy, ambulation therapy has been ordered. The patient was seen by the physical therapist. Their recommendations was TCU if the patient agrees. The patient was seen and examined with the home theater specialist present at the bedside. The patient was updated about his condition, diagnosis, treatment options, treatment plan, all discussed and explained to the patient at length and all questions concerned answered, which he acknowledged understood. Dictated and electronically signed, not read. Geoffrey Thacker MD
--- NOTE | 2018-03-19 21:15 | CP.PCM.PN ---
Subjective - Date & Time of Evaluation Date of Evaluation: 03/19/18 Time of Evaluation: 17:00 - Subjective Subjective: Providing nephrology coverage for Dr. Ramirez: Patient with ESRD on HD (MWF), HTN, T2DM, CHF/dilated cardiomyopathy (EF 22%), admitted with sepsis; Reports feeling well; tolerating diet; is ambulating to bathroom, no dizziness/lightheadedness; having some loose stools; Objective - Vital Signs/Intake and Output Vital Signs (last 24 hours): Temp Pulse Resp BP Pulse Ox 98 F 80 20 90/50 L 93 L 03/19/18 14:45 03/19/18 14:45 03/19/18 14:45 03/19/18 14:45 03/19/18 06:00 Intake and Output: 03/19/18 03/20/18 18:59 06:59 Intake Total 340 Balance 340 - Medications Medications: Current Medications Acetaminophen (Tylenol 325mg Tab) 650 mg PO Q6 PRN PRN Reason: TEMP>=99.5F Last Admin: 03/19/18 06:29 Dose: 650 mg Acetaminophen (Tylenol 650 Mg Supp) 650 mg RC Q6H PRN PRN Reason: TEMP>=99.5F Amiodarone HCl (Cordarone) 200 mg PO DAILY [facility] Last Admin: 03/19/18 09:23 Dose: 200 mg Aspirin (Aspirin Chewable) 81 mg PO DAILY [facility] Last Admin: 03/19/18 09:23 Dose: 81 mg Atorvastatin Calcium (Lipitor) 40 mg PO DIN [facility] Last Admin: 03/19/18 17:52 Dose: 40 mg Collagenase (Santyl) 0 gm TOP DAILY [facility] Last Admin: 03/19/18 10:35 Dose: 1 applic Ferrous Sulfate (Feosol) 324 mg PO TID [facility] Last Admin: 03/19/18 17:52 Dose: 324 mg Meropenem/Sodium Chloride (Merrem Iv 500 Mg/Ns 50 Ml) 500 mg in 50 mls @ 100 mls/hr IVPB Q24H [facility]; Protocol Stop: 03/24/18 16:01 Last Admin: 03/19/18 17:28 Dose: Not Given Dobutamine HCl/Dextrose (Dobutamine/Dextrose 5% 500mg/250ml) 500 mg in 250 mls @ 13.662 mls/hr IV .[id number] PRN PRN Reason: Cough and congestion Last Admin: 03/19/18 14:55 Dose: 13.662 mls/hr Insulin Human Lispro (Humalog Med) 0 units SC ACHS [facility]; Protocol Last Admin: 03/19/18 17:21 Dose: Not Given Lactobacillus Acidophilus (Bacid Acidophilus) 1 cap PO BID [facility] Stop: 03/21/18 10:01 Last Admin: 03/19/18 17:52 Dose: 1 cap Midodrine (Proamatine) 5 mg PO 0800,1200,1600 [facility] Non-Formulary Medication (Sevelamer Carbonate [Renvela]) 1 tab PO BID [facility] Last Admin: 03/19/18 17:22 Dose: Not Given Ondansetron HCl (Zofran Inj) 4 mg IVP Q4H PRN PRN Reason: Nausea/Vomiting Pantoprazole Sodium (Protonix Ec Tab) 40 mg PO 0600 [facility] Last Admin: 03/19/18 05:25 Dose: 40 mg Tamsulosin HCl (Flomax) 0.4 mg PO DAILY [facility] Last Admin: 03/19/18 09:24 Dose: 0.4 mg Vancomycin HCl (Vancocin 25 Mg/Ml (Oral Use)) 250 mg PO QID [facility]; Protocol Last Admin: 03/19/18 17:53 Dose: 250 mg Vitamin B Complex/Vit C/Folic Acid (Nephro-Tyson) 1 tab PO DAILY [facility] Last Admin: 03/19/18 09:24 Dose: 1 tab - Labs Labs: 03/19/18 15:01 03/19/18 07:30 PT 21.2 SECONDS (9.4-12.5) H 03/17/18 13:10 INR 1.84 03/17/18 13:10 APTT 35.7 Seconds (25.1-36.5) 03/17/18 13:10 - Constitutional Appears: Non-toxic, No Acute Distress - Eye Exam Eye Exam: Normal appearance. absent: Scleral icterus - ENT Exam ENT Exam: Mucous Membranes Moist - Respiratory Exam Respiratory Exam: absent: Rhonchi, Wheezes, Respiratory Distress Additional comments: Mild rales; - Cardiovascular Exam Cardiovascular Exam: RRR, +S1, +S2. absent: Gallop, Rubs - GI/Abdominal Exam GI & Abdominal Exam: Soft. absent: Distended, Tenderness - Extremities Exam Additional comments: minimal lower leg edema; - Neurological Exam Neurological Exam: Alert, Awake - Psychiatric Exam Psychiatric exam: Normal Affect, Normal Mood. absent: Agitated - Skin Skin Exam: Warm. absent: Cyanosis Assessment and Plan (1) End stage chronic kidney disease Assessment & Plan: Stable volume and electrolyte status; tolerated HD well yesterday; no signs/symptoms of CHF today; mild hypotension noted but overall stable and without signs of end-organ compromise; -next HD for Wednesday per routine; will evaluate tomorrow if extra treatment needed; Status: Chronic (2) CHF (congestive heart failure) Assessment & Plan: Cardiomyopathy with mild hypotension; started on inotropic support today with dobutamine by cardiology; will follow; Status: Chronic (3) Anemia in CKD (chronic kidney disease) Assessment & Plan: s/p 1 more unit prbc today after inadequate response to transfusion yesterday; s/p aranesp 100 mcg yesterday; continue to monitor; Status: Acute (4) Sepsis Assessment & Plan: Currently on meropenem, dosed for HD; continue per ID; f/u blood cultures; Status: Acute (5) Chronic kidney disease-mineral and bone disorder Assessment & Plan: Phos currently controlled, continue sevelamer w/ meals; Status: Chronic
[2018-03-20] MEDS: Pantoprazole 40 mg EC Tab PO SCH (05:59)
[2018-03-20 07:12] LABS: BASO # 0.02 K/mm3 (0.0-2.0); BASO % 0.2 % (0.0-3.0); EOS # 0.2 (0.0-0.7); EOS % 1.5 % (1.5-5.0); GRAN # 9.4 (1.4-6.5); GRAN % 75.5 % (50.0-68.0); HEMOGLOBIN 8.4 g/dL (14.0-18.0); LYMPH # 1.8 (1.2-3.4); LYMPH % 14.4 % (22.0-35.0); MEAN CELL VOLUME 92.9 fl (80.0-105.0); MEAN CORPUSCULAR HGB CONC 32.3 g/dl (31.0-37.0); MEAN PLATELET VOLUME 9.8 fl (7.0-11.0); MONO % 8.4 % (1.0-6.0); RBC 2.8 10^6/uL (3.5-6.1); RED CELL DISTRIBUTION WIDTH 18.1 % (11.5-14.5); WHITE BLOOD COUNT 12.4 10^3/uL (4.5-11.0)
[2018-03-20 07:39] LABS: ALB/GLOB RATIO 0.9 (1.1-1.8); ALBUMIN 3.1 g/dL (3.0-4.8); CALCIUM 7.5 mg/dL (8.4-10.5)
[2018-03-20] MEDS: Insulin Lispro (humaLOG) MEDIUM Coverage SC SCH ×4 (08:20→22:14)
[2018-03-20] MEDS: DOBUTamine 500mg/250ml D5W 500 MG/250 ML BAG IV PRN (10:57)
[2018-03-20] MEDS: Collagenase 250 Units/gm Ointment(30 gm) TOP SCH (10:58)
[2018-03-20] MEDS: Multivitamin Vitamin B Complex (Nephro-Vite) Tab PO SCH (10:58)
[2018-03-20] MEDS: SEVELAMER CARBONATE PO SCH ×2 (10:58→17:37)
[2018-03-20] MEDS: Lactobacillus Acidophilus 500 MU Cap PO SCH (10:58)
[2018-03-20] MEDS: Vancomycin 25 MG/ML PO SCH ×2 (10:59→14:28)
--- NOTE | 2018-03-20 13:25 | PN ---
DATE: 03/20/2018 SUBJECTIVE: The patient is in bed in no acute distress. The patient was seen in room 270, bed 1. The patient is awake and alert. No fevers now. No abdominal pain, does have pelvic fullness he states. OBJECTIVE: VITAL SIGNS: Temperature is 99, blood pressure is 114/60, respiratory rate of 18. HEENT: Unremarkable. NECK: Supple. LUNGS: Have decreased breath sounds. HEART: Normal S1, S2. ABDOMEN: Soft, nontender. LABORATORY EXAMINATION: Reveals a white count of 12,400, hemoglobin of 8, BUN of 62, creatinine of 6.6. Chemistries noted and stool for occult blood is positive, influenza type B negative influenza serology. Blood cultures are E. Coli which is ESBL E. Coli in the blood and the repeat blood cultures are negative. The left foot culture is coag-negative staph and review of orders reveals the patient to be on meropenem and p.o. vancomycin. ASSESSMENT AND PLAN: This is a 67-year-old male with chronic congestive heart failure, renal failure, hemodialysis, diabetes, morbid obesity, severe , obstructive sleep apnea, sciatica, hypertension, status post left foot debridement and admitted with fevers and chills and sepsis with extended-spectrum beta-lactamase Escherichia coli bacteremia r/o endocarditis pt has a pacemaker which is about a year old. The patient has a fistula in his arm. He has no abdominal findings. He has refused the urinalysis and urine culture because he requires a straight cath. He does not want his catheter straight cathed. After a lengthy discussion, CT scan of the abdomen and pelvis is noted and reviewed on ultrasound of the abdomen. It is also noted most likely urine as the source, on meropenem. Today is day #3 of 10-14 days of meropenem for extended-spectrum beta-lactamase Escherichia coli bacteremia source - pacemaker vs versus GI. the CT scan is negative and abdominal exam is soft, I suspect it is origin vs pacemaker Unable to obtain urinalysis and urine culture, and the patient does have a left arm fistula for dialysis. The patient who is on dialysis has been told that the left arm has a fistula which will be less unusual cause for the bacteremia. awaiting RASHAUN r/o pacemaker infection. Charlie Taylor MD [facility]
--- NOTE | 2018-03-20 13:37 | CP.PCM.CON ---
<LenJamarcusarina - Last Filed: 03/20/18 16:32> History of Present Illness - History of Present Illness History of Present Illness: PGY-4 GI Fellow Consult Note 67 year old male with PMH of dilated cardiomyopathy (EF 22%) s/p defibrillator, ESRD on HD MWF, Arthritis, HTN, Diabetes, and Anemia requiring transfusion presenting with fever and weakness, sepsis related to GNR bacteremia and lower extremity infection. GI later consulted for FOBT+ stools and reported 1x melena. During my encounter, pt states that he is doing OK with some vague non-specific abd bloating. He states that he has been moving his bowels at least daily with formed brown stool, denied any melena nor hematochezia. Since his admission he has been given a total of 3 units PRBc with change from 6.7 to 8.4 and has undergone dialysis as well. Bone marrow biopsy from 02/18 was suggestive of anemia of chronic disease. 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 pylori negative gastritis, and normal duodenal biopsies. 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 12 point ROS negative other than stated above MHx:See above SurgHx: LUE AVF, defibrillator Meds: Reviewed in chart Family History- denies stomach cancer, colon cancer Social History- social ETOH use, occasional cigar use, denies cigarette or illicit drug use All: NKDA Past Patient History - Infectious Disease Hx of Infectious Diseases: None - Past Social History Smoking Status: Light Smoker < 10 Cigarettes Daily - CARDIAC Hx Cardiac Disorders: Yes Hx Congestive Heart Failure: Yes Hx Hypercholesterolemia: Yes Hx Hypertension: Yes - PULMONARY Hx Respiratory Disorders: Yes (SMOKES CIGARS OCCASIONALLY) - NEUROLOGICAL Hx Neurological Disorder: No - HEENT Hx HEENT Problems: No - RENAL Hx Renal Failure: Yes - ENDOCRINE/METABOLIC Hx Diabetes Mellitus Type 2: Yes - HEMATOLOGICAL/ONCOLOGICAL Hx Blood Disorders: Yes Hx Anemia: Yes (BLOOD TRANSFUSION) - INTEGUMENTARY Hx Dermatological Problems: Yes Other/Comment: 02-16-18 BILATERAL LEG EDEMA +2 PITTING - MUSCULOSKELETAL/RHEUMATOLOGICAL Hx Musculoskeletal Disorders: Yes Hx Falls: Yes Hx Unsteady Gait: Yes (ROLLATOR) - GASTROINTESTINAL Hx Gastrointestinal Disorders: Yes (CONSTIPATION) Hx Gall Bladder Disease: Yes (GALLSTONES) - GENITOURINARY/GYNECOLOGICAL Hx Genitourinary Disorders: Yes (ANURIA) Hx Prostate Problems: Yes (BPH) - PSYCHIATRIC Hx Psychophysiologic Disorder: No Hx Substance Use: No - SURGICAL HISTORY Hx Surgeries: Yes (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 .) Other/Comment: L AV shunt - ANESTHESIA Hx Anesthesia: Yes Hx Anesthesia Reactions: No Hx Malignant Hyperthermia: No Meds Allergies/Adverse Reactions: Allergies Allergy/AdvReac Type Severity Reaction Status Date / Time No Known Allergies Allergy Verified 03/17/18 16:54 - Medications Medications: Current Medications Acetaminophen (Tylenol 325mg Tab) 650 mg PO Q6 PRN PRN Reason: TEMP>=99.5F Last Admin: 03/20/18 05:59 Dose: 650 mg Acetaminophen (Tylenol 650 Mg Supp) 650 mg RC Q6H PRN PRN Reason: TEMP>=99.5F Amiodarone HCl (Cordarone) 200 mg PO DAILY [facility] Last Admin: 03/20/18 10:58 Dose: 200 mg Aspirin (Aspirin Chewable) 81 mg PO DAILY [facility] Last Admin: 03/20/18 10:57 Dose: 81 mg Atorvastatin Calcium (Lipitor) 40 mg PO DIN [facility] Last Admin: 03/19/18 17:52 Dose: 40 mg Collagenase (Santyl) 0 gm TOP DAILY [facility] Last Admin: 03/20/18 10:58 Dose: Not Given Ferrous Sulfate (Feosol) 324 mg PO TID [facility] Last Admin: 03/20/18 10:58 Dose: 324 mg Meropenem/Sodium Chloride (Merrem Iv 500 Mg/Ns 50 Ml) 500 mg in 50 mls @ 100 mls/hr IVPB Q24H [facility]; Protocol Stop: 03/24/18 16:01 Last Admin: 03/19/18 17:28 Dose: Not Given Dobutamine HCl/Dextrose (Dobutamine/Dextrose 5% 500mg/250ml) 500 mg in 250 mls @ 13.662 mls/hr IV .[id number] PRN PRN Reason: Cough and congestion Last Admin: 03/20/18 10:57 Dose: 13.662 mls/hr Insulin Human Lispro (Humalog Med) 0 units SC ACHS [facility]; Protocol Last Admin: 03/20/18 12:49 Dose: Not Given Lactobacillus Acidophilus (Bacid Acidophilus) 1 cap PO BID [facility] Stop: 03/21/18 10:01 Last Admin: 03/20/18 10:58 Dose: 1 cap Midodrine (Proamatine) 5 mg PO 0800,1200,1600 [facility] Last Admin: 03/20/18 12:50 Dose: 5 mg Non-Formulary Medication (Sevelamer Carbonate [Renvela]) 1 tab PO BID [facility] Last Admin: 03/20/18 10:58 Dose: Not Given Ondansetron HCl (Zofran Inj) 4 mg IVP Q4H PRN PRN Reason: Nausea/Vomiting Pantoprazole Sodium (Protonix Ec Tab) 40 mg PO 0600 [facility] Last Admin: 03/20/18 05:59 Dose: 40 mg Tamsulosin HCl (Flomax) 0.4 mg PO DAILY [facility] Last Admin: 03/20/18 10:57 Dose: 0.4 mg Vancomycin HCl (Vancocin 25 Mg/Ml (Oral Use)) 250 mg PO QID [facility]; Protocol Last Admin: 03/20/18 10:59 Dose: 250 mg Vitamin B Complex/Vit C/Folic Acid (Nephro-Tyson) 1 tab PO DAILY [facility] Last Admin: 03/20/18 10:58 Dose: 1 tab Physical Exam - Constitutional Appears: No Acute Distress, Chronically Ill - Head Exam Head Exam: ATRAUMATIC, NORMAL INSPECTION - Eye Exam Eye Exam: EOMI. absent: Scleral icterus - ENT Exam ENT Exam: Mucous Membranes Moist. absent: Mucous Membranes Dry - Respiratory Exam Respiratory Exam: NORMAL BREATHING PATTERN. absent: Accessory Muscle Use, Respiratory Distress - Cardiovascular Exam Cardiovascular Exam: REGULAR RHYTHM, RRR - GI/Abdominal Exam GI & Abdominal Exam: Distended (mildly), Normal Bowel Sounds, Soft, Tenderness (mildly ttp in suprapubic region w/o guarding). absent: Bruit, Diminished Bowel Sounds, Firm, Guarding, Hernia, Organomegaly, Pulsatile Mass, Rebound, Rigid - Rectal Exam Rectal Exam: NORMAL INSPECTION Additional comments: light green stool visualized on LESLIE - Extremities Exam Extremities exam: Positive for: pedal edema (mild). Negative for: tenderness Additional comments: signs of chronic arthritis with ulnar deviation of hands and nodularity - Neurological Exam Neurological exam: Alert, CN II-XII Intact - Psychiatric Exam Psychiatric exam: Flat Affect, Normal Mood (seemed somewhat down and frustrated) - Skin Skin Exam: Dry, Warm Results - Vital Signs Recent Vital Signs: Last Vital Signs Temp 97.8 F 03/20/18 12:00 Pulse 86 03/20/18 12:00 Resp 20 03/20/18 12:00 BP 107/62 03/20/18 10:58 Pulse Ox 93 L 03/20/18 06:00 - Labs Result Diagrams: 03/20/18 06:45 03/20/18 06:45 Labs: Laboratory Results - last 24 hr 03/17/18 03/19/18 03/19/18 13:10 15:01 15:43 WBC 11.9 H RBC 2.92 L Hgb 8.7 L Hct 27.2 L MCV 93.2 MCH 29.8 MCHC 32.0 RDW 18.4 H Plt Count 129 MPV 9.3 Gran % 82.9 H Lymph % (Auto) 8.3 L Jefferson % (Auto) 7.6 H Eos % (Auto) 1.1 L Baso % (Auto) 0.1 Gran # 9.85 H Lymph # (Auto) 1.0 L Jefferson # (Auto) 0.9 H Eos # (Auto) 0.1 Baso # (Auto) 0.01 Sodium Potassium Chloride Carbon Dioxide Anion Gap BUN Creatinine Est GFR ( Amer) Est GFR (Non-Af Amer) POC Glucose (mg/dL) Random Glucose Calcium Phosphorus Magnesium Total Bilirubin Direct Bilirubin AST ALT Alkaline Phosphatase Total Protein Albumin Globulin Albumin/Globulin Ratio Stool Occult Blood Positive H Blood Type Antibody Screen Crossmatch See Detail BBK History Checked 03/19/18 03/19/18 03/20/18 16:09 21:11 06:45 WBC 12.4 H RBC 2.80 L Hgb 8.4 L Hct 26.0 L MCV 92.9 MCH 30.0 MCHC 32.3 RDW 18.1 H Plt Count 136 MPV 9.8 Gran % 75.5 H Lymph % (Auto) 14.4 L Jefferson % (Auto) 8.4 H Eos % (Auto) 1.5 Baso % (Auto) 0.2 Gran # 9.40 H Lymph # (Auto) 1.8 Jefferson # (Auto) 1.0 H Eos # (Auto) 0.2 Baso # (Auto) 0.02 Sodium Potassium Chloride Carbon Dioxide Anion Gap BUN Creatinine Est GFR ( Amer) Est GFR (Non-Af Amer) POC Glucose (mg/dL) 142 H 99 Random Glucose Calcium Phosphorus Magnesium Total Bilirubin Direct Bilirubin AST ALT Alkaline Phosphatase Total Protein Albumin Globulin Albumin/Globulin Ratio Stool Occult Blood Blood Type Antibody Screen Crossmatch BBK History Checked 03/20/18 03/20/18 03/20/18 06:45 06:45 07:25 WBC RBC Hgb Hct MCV MCH MCHC RDW Plt Count MPV Gran % Lymph % (Auto) Jefferson % (Auto) Eos % (Auto) Baso % (Auto) Gran # Lymph # (Auto) Jefferson # (Auto) Eos # (Auto) Baso # (Auto) Sodium 133 Potassium 4.3 Chloride 95 L Carbon Dioxide 28 Anion Gap 14 BUN 62 H Creatinine 6.6 H Est GFR ( Amer) 10 Est GFR (Non-Af Amer) 8 POC Glucose (mg/dL) 109 Random Glucose 104 Calcium 7.5 L Phosphorus 4.2 Magnesium 2.0 Total Bilirubin 1.1 Direct Bilirubin 1.0 H AST 37 ALT 30 Alkaline Phosphatase 111 Total Protein 6.6 Albumin 3.1 Globulin 3.5 Albumin/Globulin Ratio 0.9 L Stool Occult Blood Blood Type A POSITIVE Antibody Screen Negative Crossmatch See Detail BBK History Checked Patient has bt 03/20/18 11:53 WBC RBC Hgb Hct MCV MCH MCHC RDW Plt Count MPV Gran % Lymph % (Auto) Jefferson % (Auto) Eos % (Auto) Baso % (Auto) Gran # Lymph # (Auto) Jefferson # (Auto) Eos # (Auto) Baso # (Auto) Sodium Potassium Chloride Carbon Dioxide Anion Gap BUN Creatinine Est GFR ( Amer) Est GFR (Non-Af Amer) POC Glucose (mg/dL) 113 H Random Glucose Calcium Phosphorus Magnesium Total Bilirubin Direct Bilirubin AST ALT Alkaline Phosphatase Total Protein Albumin Globulin Albumin/Globulin Ratio Stool Occult Blood Blood Type Antibody Screen Crossmatch BBK History Checked Assessment & Plan - Assessment and Plan (Free Text) Assessment: 67 year old male with PMH of dilated cardiomyopathy (EF 22%) s/p defibrillator, ESRD on HD MWF, HTN, Diabetes, and anemia requiring transfusion presenting with GNR bacteremia sepsis with LE infection. # Acute on Chronic Normocytic Anemia: Suspect multifactorial in nature related to Anemia of Chronic Disease, CKD and possible small bowel losses. # Possible New Cirrhosis: Evidence by prominent caudate lobe and some nodularity on US. Pt with risk factors for WOODRUFF, Cardiasc induced etc. Perihepatic ascites perhaps related to the former but also with underlying Renal disease which could also cause ascites independent of liver disease. # ESBL bacteremia: Perhaps related to SBP, but ascites not significant and pt already on broad spectrum abx that would cover usual SBP pathogens. Otherwise, agree that source also likely related to urinary but pt declined straight cath for UA. Plan: - Check Abd Duplex to eval for PVT in setting of new ascites and non-specific abd pain - No signs of active GI bleed at this time - Recent bone marrow biopsy suggestive of anemia of chronic disease - Consider outpatient capsule endoscopy for small bowel evaluation for AVMs and/or other pathology - Monitor Hgb - EPO per Nephrology - Should ascites be more amenable to paracentesis, recommend diagnostic tap - Recommend outpatient EGD in 6-12 months to f/u esophageal squamous hyperplasia seen on EGD 02/07/18 Pt seen and examined with Dr. Wynn; please see attestation for further recs/changes. Kurtis Harrington, PGY-4 <Foreign Wynn V - Last Filed: 03/20/18 23:59> Meds - Medications Medications: Current Medications Acetaminophen (Tylenol 325mg Tab) 650 mg PO Q6 PRN PRN Reason: TEMP>=99.5F Last Admin: 03/20/18 05:59 Dose: 650 mg Acetaminophen (Tylenol 650 Mg Supp) 650 mg RC Q6H PRN PRN Reason: TEMP>=99.5F Amiodarone HCl (Cordarone) 200 mg PO DAILY [facility] Last Admin: 03/20/18 10:58 Dose: 200 mg Aspirin (Aspirin Chewable) 81 mg PO DAILY [facility] Last Admin: 03/20/18 10:57 Dose: 81 mg Atorvastatin Calcium (Lipitor) 40 mg PO DIN [facility] Last Admin: 03/20/18 17:47 Dose: 40 mg Collagenase (Santyl) 0 gm TOP DAILY [facility] Last Admin: 03/20/18 10:58 Dose: Not Given Ferrous Sulfate (Feosol) 324 mg PO TID [facility] Last Admin: 03/20/18 17:47 Dose: 324 mg Meropenem/Sodium Chloride (Merrem Iv 500 Mg/Ns 50 Ml) 500 mg in 50 mls @ 100 mls/hr IVPB Q24H [facility]; Protocol Stop: 03/24/18 16:01 Last Admin: 03/20/18 17:40 Dose: 100 mls/hr Dobutamine HCl/Dextrose (Dobutamine/Dextrose 5% 500mg/250ml) 500 mg in 250 mls @ 13.662 mls/hr IV .[id number] PRN PRN Reason: Cough and congestion Last Admin: 03/20/18 10:57 Dose: 13.662 mls/hr Insulin Human Lispro (Humalog Med) 0 units SC ACHS [facility]; Protocol Last Admin: 03/20/18 22:14 Dose: Not Given Midodrine (Proamatine) 5 mg PO 0800,1200,1600 [facility] Last Admin: 03/20/18 17:47 Dose: 5 mg Non-Formulary Medication (Sevelamer Carbonate [Renvela]) 1 tab PO BID [facility] Last Admin: 03/20/18 17:37 Dose: Not Given Ondansetron HCl (Zofran Inj) 4 mg IVP Q4H PRN PRN Reason: Nausea/Vomiting Pantoprazole Sodium (Protonix Ec Tab) 40 mg PO 0600 [facility] Last Admin: 03/20/18 05:59 Dose: 40 mg Tamsulosin HCl (Flomax) 0.4 mg PO DAILY [facility] Last Admin: 03/20/18 10:57 Dose: 0.4 mg Vitamin B Complex/Vit C/Folic Acid (Nephro-Tyson) 1 tab PO DAILY [facility] Last Admin: 03/20/18 10:58 Dose: 1 tab Results - Vital Signs Recent Vital Signs: Last Vital Signs Temp 98.0 F 03/20/18 23:42 Pulse 62 03/20/18 23:42 Resp 20 03/20/18 23:42 BP 119/62 03/20/18 23:42 Pulse Ox 95 03/20/18 23:42 - Labs Result Diagrams: 03/20/18 06:45 03/20/18 06:45 Labs: Laboratory Results - last 24 hr 03/19/18 03/20/18 03/20/18 21:11 06:45 06:45 WBC 12.4 H RBC 2.80 L Hgb 8.4 L Hct 26.0 L MCV 92.9 MCH 30.0 MCHC 32.3 RDW 18.1 H Plt Count 136 MPV 9.8 Gran % 75.5 H Lymph % (Auto) 14.4 L Jefferson % (Auto) 8.4 H Eos % (Auto) 1.5 Baso % (Auto) 0.2 Gran # 9.40 H Lymph # (Auto) 1.8 Jefferson # (Auto) 1.0 H Eos # (Auto) 0.2 Baso # (Auto) 0.02 Sodium 133 Potassium 4.3 Chloride 95 L Carbon Dioxide 28 Anion Gap 14 BUN 62 H Creatinine 6.6 H Est GFR ( Amer) 10 Est GFR (Non-Af Amer) 8 POC Glucose (mg/dL) 99 Random Glucose 104 Calcium 7.5 L Phosphorus 4.2 Magnesium 2.0 Total Bilirubin 1.1 Direct Bilirubin 1.0 H AST 37 ALT 30 Alkaline Phosphatase 111 Total Protein 6.6 Albumin 3.1 Globulin 3.5 Albumin/Globulin Ratio 0.9 L Blood Type Antibody Screen Crossmatch BBK History Checked 03/20/18 03/20/18 03/20/18 06:45 07:25 11:53 WBC RBC Hgb Hct MCV MCH MCHC RDW Plt Count MPV Gran % Lymph % (Auto) [place] % (Auto) Eos % (Auto) Baso % (Auto) Gran # Lymph # (Auto) [place] # (Auto) Eos # (Auto) Baso # (Auto) Sodium Potassium Chloride Carbon Dioxide Anion Gap BUN Creatinine Est GFR ( Amer) Est GFR (Non-Af Amer) POC Glucose (mg/dL) 109 113 H Random Glucose Calcium Phosphorus Magnesium Total Bilirubin Direct Bilirubin AST ALT Alkaline Phosphatase Total Protein Albumin Globulin Albumin/Globulin Ratio Blood Type A POSITIVE Antibody Screen Negative Crossmatch See Detail BBK History Checked Patient has bt 03/20/18 03/20/18 16:18 21:49 WBC RBC Hgb Hct MCV MCH MCHC RDW Plt Count MPV Gran % Lymph % (Auto) [place] % (Auto) Eos % (Auto) Baso % (Auto) Gran # Lymph # (Auto) [place] # (Auto) Eos # (Auto) Baso # (Auto) Sodium Potassium Chloride Carbon Dioxide Anion Gap BUN Creatinine Est GFR ( Amer) Est GFR (Non-Af Amer) POC Glucose (mg/dL) 118 H 115 H Random Glucose Calcium Phosphorus Magnesium Total Bilirubin Direct Bilirubin AST ALT Alkaline Phosphatase Total Protein Albumin Globulin Albumin/Globulin Ratio Blood Type Antibody Screen Crossmatch BBK History Checked Attending/Attestation - Attestation I have personally seen and examined this patient.: Yes I have fully participated in the care of the patient.: Yes I have reviewed all pertinent clinical information: Yes Notes (Text): This is an addendum to GI consult report dictated by the GI Fellow. The patient was seen and examined earlier. Medical records, lab studies, imagings were reviewed. Last 24 hours events reviewed. Agreed with the above treatment plan as outlined in GI Fellow 's notes with the addition of the following this 67-year-old patient with end-stage renal disease cardiomyopathy,DM was admitted withfever or chills and weakness found to have E. coli bacteremia. Patient has AICD placement Suspected urine infection possible involvement of AICD nidus nidus Patient does have cholelithiasis but clinically not for any cystitis no right upper quadrant tenderness LFTs normal CBC normal Patient has prominent caudate lobe and small ascites more in favor of probable cirrhosis of the liver History of anemia status post transfusion Normocytic anemia status post bone marrow biopsy Had EGD done showed a squamous papillary hyperplasia,no ulcers no obvious upper GI source of blood loss Patient did have colonoscopy done by Dr. Redmond in [facility] recently and he was found to have cecal AVMs and they were cauterized Because of her anemia in this but patient could be multifactorial In view of the normocytic anemia renal failure other etiology also could be considered patient did have colonoscopy which revealed a cecal AVM which were treated and possibility of small bowel AVM should also be considered a differential diagnosis. Patient would benefit from outpatient capsule endoscopy evaluation to further evaluate anemia. Patient's MCV persistently remains elevated Would request reticulocyte count The etiology for probable cirrhosis is unclear would get hepatitis profile and autoimmune markersmarkers along with hemochromatosis genetic testing in this patient would also request abdominal Doppler to evaluate portal vein 03/20/18 23:51
--- NOTE | 2018-03-20 14:52 | CP.PCM.PN ---
<Dayne Garg - Last Filed: 03/20/18 16:00> Subjective - Date & Time of Evaluation Date of Evaluation: 03/20/18 Time of Evaluation: 14:50 - Subjective Subjective: Podiatry progress note for Dr. Contreras 67M seen and evaluated at bedside. Patient sitting up in chair comfortably. Reports mild dizziness that has improved since admission. Denies pain or discomfort in left foot. States that he does feel better and had a 3rd blood transfusion yesterday. Denies N/V/F/C and has no other acute complaints. Objective - Vital Signs/Intake and Output Vital Signs (last 24 hours): Temp Pulse Resp BP Pulse Ox 97.8 F 86 20 107/62 93 L 03/20/18 12:00 03/20/18 12:00 03/20/18 12:00 03/20/18 10:58 03/20/18 06:00 Intake and Output: 03/20/18 03/20/18 06:59 18:59 Intake Total 704 Output Total 0 Balance 704 - Medications Medications: Current Medications Acetaminophen (Tylenol 325mg Tab) 650 mg PO Q6 PRN PRN Reason: TEMP>=99.5F Last Admin: 03/20/18 05:59 Dose: 650 mg Acetaminophen (Tylenol 650 Mg Supp) 650 mg RC Q6H PRN PRN Reason: TEMP>=99.5F Amiodarone HCl (Cordarone) 200 mg PO DAILY [facility] Last Admin: 03/20/18 10:58 Dose: 200 mg Aspirin (Aspirin Chewable) 81 mg PO DAILY [facility] Last Admin: 03/20/18 10:57 Dose: 81 mg Atorvastatin Calcium (Lipitor) 40 mg PO DIN [facility] Last Admin: 03/19/18 17:52 Dose: 40 mg Collagenase (Santyl) 0 gm TOP DAILY [facility] Last Admin: 03/20/18 10:58 Dose: Not Given Ferrous Sulfate (Feosol) 324 mg PO TID [facility] Last Admin: 03/20/18 14:28 Dose: 324 mg Meropenem/Sodium Chloride (Merrem Iv 500 Mg/Ns 50 Ml) 500 mg in 50 mls @ 100 mls/hr IVPB Q24H [facility]; Protocol Stop: 03/24/18 16:01 Last Admin: 03/19/18 17:28 Dose: Not Given Dobutamine HCl/Dextrose (Dobutamine/Dextrose 5% 500mg/250ml) 500 mg in 250 mls @ 13.662 mls/hr IV .[id number] PRN PRN Reason: Cough and congestion Last Admin: 03/20/18 10:57 Dose: 13.662 mls/hr Insulin Human Lispro (Humalog Med) 0 units SC ACHS [facility]; Protocol Last Admin: 03/20/18 12:49 Dose: Not Given Lactobacillus Acidophilus (Bacid Acidophilus) 1 cap PO BID [facility] Stop: 03/21/18 10:01 Last Admin: 03/20/18 10:58 Dose: 1 cap Midodrine (Proamatine) 5 mg PO 0800,1200,1600 [facility] Last Admin: 03/20/18 12:50 Dose: 5 mg Non-Formulary Medication (Sevelamer Carbonate [Renvela]) 1 tab PO BID [facility] Last Admin: 03/20/18 10:58 Dose: Not Given Ondansetron HCl (Zofran Inj) 4 mg IVP Q4H PRN PRN Reason: Nausea/Vomiting Pantoprazole Sodium (Protonix Ec Tab) 40 mg PO 0600 [facility] Last Admin: 03/20/18 05:59 Dose: 40 mg Tamsulosin HCl (Flomax) 0.4 mg PO DAILY [facility] Last Admin: 03/20/18 10:57 Dose: 0.4 mg Vancomycin HCl (Vancocin 25 Mg/Ml (Oral Use)) 250 mg PO QID [facility]; Protocol Last Admin: 03/20/18 14:28 Dose: 250 mg Vitamin B Complex/Vit C/Folic Acid (Nephro-Tyson) 1 tab PO DAILY [facility] Last Admin: 03/20/18 10:58 Dose: 1 tab - Labs Labs: 03/20/18 06:45 03/20/18 06:45 PT 21.2 SECONDS (9.4-12.5) H 03/17/18 13:10 INR 1.84 03/17/18 13:10 APTT 35.7 Seconds (25.1-36.5) 03/17/18 13:10 - Constitutional Appears: Well, Non-toxic, No Acute Distress - Head Exam Head Exam: ATRAUMATIC, NORMOCEPHALIC - Extremities Exam Additional comments: Vasc: DP and PT faintly palpable, CFT <3 seconds X 10, no edema, TG warm to warm, mild edema appreciated circumfrentially to b/l lower extremities Ortho: HAV deformities noted bilaterally, MMT 5/5 bilaterally, no posterior calf pain noted Neuro: Gross sensation intact, protective sensation diminished Derm: 2 cm X 1.5 cm wound at the dorso-medial aspect of the left 1st MTPJ, fibrogranular wound base noted, no drainage noted, minimal erythema left 1st MTPJ, no malodor, no probe to bone, no tunneling or tracking, no cellulitis appreciated, no clinical signs of infection at this time - Neurological Exam Neurological Exam: Alert, Awake, Oriented x3 - Psychiatric Exam Psychiatric exam: Normal Affect, Normal Mood Assessment and Plan - Assessment and Plan (Free Text) Assessment: 67M with L foot ulceration. Plan: Patient seen and evaluated Discussed in detail with Dr. 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 No evidence of OM Will continue to follow <Funmi Contreras - Last Filed: 03/20/18 18:06> Objective - Vital Signs/Intake and Output Vital Signs (last 24 hours): Temp Pulse Resp BP Pulse Ox 98.4 F 81 20 118/74 93 L 03/20/18 18:00 03/20/18 18:00 03/20/18 18:00 03/20/18 18:00 03/20/18 06:00 Intake and Output: 03/20/18 03/20/18 06:59 18:59 Intake Total 704 Output Total 0 Balance 704 - Medications Medications: Current Medications Acetaminophen (Tylenol 325mg Tab) 650 mg PO Q6 PRN PRN Reason: TEMP>=99.5F Last Admin: 03/20/18 05:59 Dose: 650 mg Acetaminophen (Tylenol 650 Mg Supp) 650 mg RC Q6H PRN PRN Reason: TEMP>=99.5F Amiodarone HCl (Cordarone) 200 mg PO DAILY [facility] Last Admin: 03/20/18 10:58 Dose: 200 mg Aspirin (Aspirin Chewable) 81 mg PO DAILY [facility] Last Admin: 03/20/18 10:57 Dose: 81 mg Atorvastatin Calcium (Lipitor) 40 mg PO DIN [facility] Last Admin: 03/20/18 17:47 Dose: 40 mg Collagenase (Santyl) 0 gm TOP DAILY [facility] Last Admin: 03/20/18 10:58 Dose: Not Given Ferrous Sulfate (Feosol) 324 mg PO TID [facility] Last Admin: 03/20/18 17:47 Dose: 324 mg Meropenem/Sodium Chloride (Merrem Iv 500 Mg/Ns 50 Ml) 500 mg in 50 mls @ 100 mls/hr IVPB Q24H [facility]; Protocol Stop: 03/24/18 16:01 Last Admin: 03/20/18 17:40 Dose: 100 mls/hr Dobutamine HCl/Dextrose (Dobutamine/Dextrose 5% 500mg/250ml) 500 mg in 250 mls @ 13.662 mls/hr IV .[id number] PRN PRN Reason: Cough and congestion Last Admin: 03/20/18 10:57 Dose: 13.662 mls/hr Insulin Human Lispro (Humalog Med) 0 units SC ACHS [facility]; Protocol Last Admin: 03/20/18 17:36 Dose: Not Given Midodrine (Proamatine) 5 mg PO 0800,1200,1600 [facility] Last Admin: 03/20/18 17:47 Dose: 5 mg Non-Formulary Medication (Sevelamer Carbonate [Renvela]) 1 tab PO BID [facility] Last Admin: 03/20/18 17:37 Dose: Not Given Ondansetron HCl (Zofran Inj) 4 mg IVP Q4H PRN PRN Reason: Nausea/Vomiting Pantoprazole Sodium (Protonix Ec Tab) 40 mg PO 0600 [facility] Last Admin: 03/20/18 05:59 Dose: 40 mg Tamsulosin HCl (Flomax) 0.4 mg PO DAILY [facility] Last Admin: 03/20/18 10:57 Dose: 0.4 mg Vitamin B Complex/Vit C/Folic Acid (Nephro-Tyson) 1 tab PO DAILY [facility] Last Admin: 03/20/18 10:58 Dose: 1 tab - Labs Labs: 03/20/18 06:45 03/20/18 06:45 PT 21.2 SECONDS (9.4-12.5) H 03/17/18 13:10 INR 1.84 12/27/18 13:10 APTT 35.7 Seconds (25.1-36.5) 03/17/18 13:10 Attending/Attestation - Attestation I have personally seen and examined this patient.: Yes I have fully participated in the care of the patient.: Yes I have reviewed all pertinent clinical information, including history, physical exam and plan: Yes
[2018-03-20] MEDS: MEROPENEM 500 MG in NS 500 MG/50 ML BAG IVPB SCH (17:40)
--- NOTE | 2018-03-20 20:42 | PN ---
DATE: 03/20/2018 SUBJECTIVE: The patient is seen again in room 270, bed 1. The patient is again seen lying in the bed. The patient is alert, awake, responsive. The patient denies any diarrhea or constipation. The patient states that the diarrhea which the patient he had yesterday has completely resolved. The patient has not had any bowel movement. The patient denies any chest pain or shortness of breath. Denies nausea or vomiting. Denies abdominal pain. PHYSICAL EXAMINATION: VITAL SIGNS: T-max is the last 24 hours 99.8 down to 97.8. Telemetry shows heart rate of 86, 85, 80. Telemetry monitoring shows sinus rhythm, blood pressure 107/62, 114/65, 99/57, 113/70, respiration 20, O2 sat 93%, 95%, 97%. HEENT: Head is normocephalic, atraumatic. HEENT examination shows pinkish pale conjunctivae. Anicteric sclerae. No oropharyngeal lesion. Positive left upper chest AICD noted. NECK: No neck rigidity. CHEST: Kyphosis. CARDIOPULMONARY: S1, S2, regular rhythm. Positive questionable systolic murmur at the left sternal border, right second intercostal space, left second intercostal space. LUNGS: Shows no audible crackle, rales or wheezing. ABDOMEN: Soft. No palpable pedal splenomegaly. GENITALIA: Male. RECTAL: Deferred. EXTREMITIES: Shows positive left upper extremity AV fistula, positive left lower extremity diabetic ulceration. Trace swelling of the lower extremity. Positive contractures of the left bilateral upper extremity and hands. MUSCULOSKELETAL: Shows a body mass index of 28. NEUROLOGIC: The patient is alert, awake, oriented x3. He is able to move upper and lower extremity without assistance. Gait examination is not tested. DIAGNOSTICS: WBC is 12.4, hemoglobin and hematocrit 8.4, 26.0, platelets 136. Granulocytes 76% segs. Sodium 133, potassium 4.3, chloride 95, CO2 of 28, anion gap 14, BUN 62, creatinine 6.6, GFR 8, glucose 113, 109, 104, 142, 150, calcium 7.5, phosphorus 4.2, magnesium 2.0. LFTs are normal. Stool occult blood was positive yesterday. Repeat stool occult blood is pending. Blood cultures from 03/17/2018 are growing ESBL Escherichia coli, left foot cultures are growing, coagulase-negative staph resistant to penicillin. Repeat blood cultures are negative. The patient received 3 units of PRBC. CURRENT MEDICATIONS: Aspirin 81 mg daily, amiodarone 200 mg daily, dobutamine drip at 5 mcg/kg/minute, ferrous sulfate 324 mg three times a day, Flomax 0.4 mg daily, Humalog medium dose sliding scale coverage, Lipitor 40 mg daily, meropenem 500 IV every 24, Nephro-Tyson 1 tablet daily, Vytorin 5 mg three times a day, Protonix 40 mg daily, Santyl to affected area daily, Renvela 1 tablet twice a day, Tylenol p.o. suppository every 6 p.r.n., Zofran 4 mg IV every 4 p.r.n. IMPRESSION: 1. Extended-spectrum beta-lactamase Escherichia coli bacteremia and sepsis. 2. Coagulase-negative left foot diabetic ulceration. 3. Hypotension. 4. High-grade fever. 5. Status post automatic implantable cardioverter defibrillator implant. 6. Slow resolving leukocytosis with granulocytosis. 7. Persistent normocytic transfusion dependent anemia. 8. Mild coagulopathy. 9. Status post packed red blood cell transfusion x3. 10. Lactic acidosis. 11. End-stage renal disease, hemodialysis dependent three times a week via the left upper extremity arteriovenous fistula. 12. Elevated prostate-specific antigen of 44. 13. Elevated troponin of 0.16, etiology undetermined. 14. Hyperglycemia. 15. Questionable gastrointestinal bleeding with fecal occult blood positive. 16. Status post PRBC transfusion x3 of A+ blood. 17. Left foot diabetic ulceration. 18. History of left foot first distal phalanx amputation. 19. Nonischemic dilated cardiomyopathy status post automatic implantable cardioverter defibrillator implant. 20. Questionable cirrhosis. 21. Anemia of chronic disease. 22. Questionable possible endocarditis versus automatic implantable cardioverter defibrillator lead infection. 23. History of noncompliance and history of signing out against medical advise. 24. Chronic kidney disease, mineral bone disorder. 25. Fever. 26. IV dobutamine dependent dilated cardiomyopathy. PLAN: At this time, the patient has been ordered serial labs. Current consultation, Infectious Disease, Nephrology, Urology, Cardiology, Gastroenterology, podiatry, referral to TCU ordered. The patient was seen by the counseling case manager. Ultrasound of the abdomen ordered. The patient has been ordered a transthoracic and transesophageal echo for evaluation of endocarditis. The patient is on renal diet, out of bed, physical therapy, occupational therapy all ordered. Repeat stool occult blood ordered. The patient updated about his condition, diagnosis, test results, recommendation. All details explained and discussed with the patient at length in layman's language. All questions concerned answered to his satisfaction.. At present, we will await further recommendation by all the physician involved in the care of the patient. The patient was advised about the need for transthoracic transesophageal echo. The patient was also advised about the possibility of removing AICD as the possible source of infection versus possible source of infection of the left upper extremity AV fistula. In addition, the patient was also advised to comply with the recommendation of all the physicians especially recommendation by Dr. Taylor about straight cathing and getting a urine sample. To evaluate for a possible urine as a source of extended-spectrum beta-lactamase Escherichia coli bacteremia and sepsis. All of the above was discussed and explained to the patient at length and all questions concerned answered. Dictated and electronically signed, not read. Geoffrey Thacker MD
--- NOTE | 2018-03-20 22:23 | CP.PCM.PN ---
Subjective - Date & Time of Evaluation Date of Evaluation: 03/20/18 Time of Evaluation: 11:30 - Subjective Subjective: Providing nephrology coverage for Dr. Ramirez: Patient with ESRD on HD (MWF), HTN, T2DM, CHF/dilated cardiomyopathy (EF 22%), admitted with sepsis (E coli ESBL); Somewhat tired today; tolerating diet; no nausea/vomiting/diarrhea; per ID, didn't allow for straight cath to obtain urine sample; had fistulogram about 2 weeks ago; reports some dry skin over fistula; Objective - Vital Signs/Intake and Output Vital Signs (last 24 hours): Temp Pulse Resp BP Pulse Ox 98.4 F 83 20 118/74 93 L 03/20/18 18:00 03/20/18 18:00 03/20/18 18:00 03/20/18 18:00 03/20/18 06:00 Intake and Output: 03/20/18 03/21/18 18:59 06:59 Intake Total 214 1140 Output Total 0 Balance 214 1140 - Medications Medications: Current Medications Acetaminophen (Tylenol 325mg Tab) 650 mg PO Q6 PRN PRN Reason: TEMP>=99.5F Last Admin: 03/20/18 05:59 Dose: 650 mg Acetaminophen (Tylenol 650 Mg Supp) 650 mg RC Q6H PRN PRN Reason: TEMP>=99.5F Amiodarone HCl (Cordarone) 200 mg PO DAILY [facility] Last Admin: 03/20/18 10:58 Dose: 200 mg Aspirin (Aspirin Chewable) 81 mg PO DAILY [facility] Last Admin: 03/20/18 10:57 Dose: 81 mg Atorvastatin Calcium (Lipitor) 40 mg PO DIN [facility] Last Admin: 03/20/18 17:47 Dose: 40 mg Collagenase (Santyl) 0 gm TOP DAILY [facility] Last Admin: 03/20/18 10:58 Dose: Not Given Ferrous Sulfate (Feosol) 324 mg PO TID [facility] Last Admin: 03/20/18 17:47 Dose: 324 mg Meropenem/Sodium Chloride (Merrem Iv 500 Mg/Ns 50 Ml) 500 mg in 50 mls @ 100 mls/hr IVPB Q24H [facility]; Protocol Stop: 03/24/18 16:01 Last Admin: 03/20/18 17:40 Dose: 100 mls/hr Dobutamine HCl/Dextrose (Dobutamine/Dextrose 5% 500mg/250ml) 500 mg in 250 mls @ 13.662 mls/hr IV .[id number] PRN PRN Reason: Cough and congestion Last Admin: 03/20/18 10:57 Dose: 13.662 mls/hr Insulin Human Lispro (Humalog Med) 0 units SC ACHS [facility]; Protocol Last Admin: 03/20/18 22:14 Dose: Not Given Midodrine (Proamatine) 5 mg PO 0800,1200,1600 [facility] Last Admin: 03/20/18 17:47 Dose: 5 mg Non-Formulary Medication (Sevelamer Carbonate [Renvela]) 1 tab PO BID [facility] Last Admin: 03/20/18 17:37 Dose: Not Given Ondansetron HCl (Zofran Inj) 4 mg IVP Q4H PRN PRN Reason: Nausea/Vomiting Pantoprazole Sodium (Protonix Ec Tab) 40 mg PO 0600 [facility] Last Admin: 03/20/18 05:59 Dose: 40 mg Tamsulosin HCl (Flomax) 0.4 mg PO DAILY [facility] Last Admin: 03/20/18 10:57 Dose: 0.4 mg Vitamin B Complex/Vit C/Folic Acid (Nephro-Tyson) 1 tab PO DAILY [facility] Last Admin: 03/20/18 10:58 Dose: 1 tab - Labs Labs: 03/20/18 06:45 03/20/18 06:45 PT 21.2 SECONDS (9.4-12.5) H 03/17/18 13:10 INR 1.84 03/17/18 13:10 APTT 35.7 Seconds (25.1-36.5) 03/17/18 13:10 - Constitutional Appears: Non-toxic, No Acute Distress - Eye Exam Eye Exam: Normal appearance - ENT Exam ENT Exam: Mucous Membranes Moist - Respiratory Exam Respiratory Exam: Clear to Ausculation Bilateral. absent: Respiratory Distress - Cardiovascular Exam Cardiovascular Exam: RRR, +S1, +S2 - GI/Abdominal Exam GI & Abdominal Exam: Soft. absent: Distended, Tenderness - Extremities Exam Additional comments: minimal lower leg edema; L forearm AVF w/ good thrill; - Neurological Exam Neurological Exam: Alert, Awake - Psychiatric Exam Psychiatric exam: Normal Affect, Normal Mood. absent: Agitated - Skin Skin Exam: Warm. absent: Cyanosis Assessment and Plan (1) End stage chronic kidney disease Assessment & Plan: Stable volume and electrolyte status; next HD session tomorrow per routine; Status: Chronic (2) CHF (congestive heart failure) Assessment & Plan: Started on dobutamine due to concern for hypotension which patient says has been ongoing since past few months; no evidence of acute deompensated CHF by exam/s ymptoms; -recommend UF per routine on HD tomorrow; Status: Chronic (3) Anemia in CKD (chronic kidney disease) Assessment & Plan: Yet again inappropriate response to prbc transfusion; s/p aranesp 2 days ago; continue to f/u with hematology; Status: Acute (4) Sepsis Assessment & Plan: E coli ESBL of unclear etiology; AVF is doubtful as the source; on meropenem, do sed for HD; Status: Acute (5) Chronic kidney disease-mineral and bone disorder Status: Chronic
[2018-03-21] MEDS: Pantoprazole 40 mg EC Tab PO SCH (05:19)
[2018-03-21] MEDS: Insulin Lispro (humaLOG) MEDIUM Coverage SC SCH ×4 (08:00→22:21)
[2018-03-21 08:01] LABS: BASO # 0.02 K/mm3 (0.0-2.0); BASO % 0.2 % (0.0-3.0); EOS # 0.3 (0.0-0.7); EOS % 2.9 % (1.5-5.0); GRAN # 8.93 (1.4-6.5); GRAN % 77.4 % (50.0-68.0); HEMOGLOBIN 8.4 g/dL (14.0-18.0); LYMPH # 1.4 (1.2-3.4); LYMPH % 12.5 % (22.0-35.0); MEAN CELL VOLUME 92.6 fl (80.0-105.0); MEAN CORPUSCULAR HEMOGLOBIN 29.8 pg (25.0-35.0); MEAN CORPUSCULAR HGB CONC 32.2 g/dl (31.0-37.0); MEAN PLATELET VOLUME 9.4 fl (7.0-11.0); MONO # 0.8 (0.1-0.6); RBC 2.82 10^6/uL (3.5-6.1); RED CELL DISTRIBUTION WIDTH 17.3 % (11.5-14.5); WHITE BLOOD COUNT 11.5 10^3/uL (4.5-11.0)
[2018-03-21 08:09] LABS: INR 1.26; PARTIAL THROMBOPLASTIN TIME 28.9 Seconds (25.1-36.5); PROTHROMBIN TIME 14.5 SECONDS (9.4-12.5)
[2018-03-21 08:37] LABS: ALB/GLOB RATIO 0.9 (1.1-1.8); CALCIUM 7.8 mg/dL (8.4-10.5)
[2018-03-21] MEDS: Collagenase 250 Units/gm Ointment(30 gm) TOP SCH (10:00)
[2018-03-21] MEDS: SEVELAMER CARBONATE PO SCH ×2 (10:00→18:39)
[2018-03-21] MEDS: Multivitamin Vitamin B Complex (Nephro-Vite) Tab PO SCH (10:31)
--- NOTE | 2018-03-21 10:31 | PN ---
DATE: 03/21/2018 SUBJECTIVE: The patient's breathing is much improved. No shortness of breath. No chest pain noted. PHYSICAL EXAMINATION: VITAL SIGNS: Blood pressure is 129/71, heart rate is in the 80s. NECK: Negative JVD. LUNGS: Without rales. HEART: S1, S2. EXTREMITIES: Without edema. LABORATORY DATA: Hemoglobin is 8.4. Chemistries: BUN and creatinine 77 and 8.2. IMPRESSION: 1. Acute systolic congestive heart failure. 2. End-stage cardiomyopathy. 3. End-stage renal disease. 4. Anemia which is better. PLAN: Given these findings, we will discontinue his dobutamine today. We will discontinue telemetry as well. Kamari Watt MD
--- NOTE | 2018-03-21 13:16 | PN ---
DATE: 03/21/2018 I am seeing the patient for Dr. Thacker, I am covering him today. LOCATION: The patient is in [facility], room 270, bed 1. SUBJECTIVE: The patient is a 67-year-old male, he was admitted with systemic inflammatory response syndrome. The patient has history of diabetes. The patient has history of atherosclerotic heart disease, cardiac arrhythmia. The patient also has history of anemia, benign prostatic hyperplasia and hyperlipidemia. The patient also has neurocardiogenic hypotension. The patient has a pacemaker and the systemic inflammatory response syndrome and the source of infection is not evident. The patient is getting evaluation for that. He is on antibiotic. His medication consist of meropenem. The patient is being evaluated for possible transesophageal echocardiography to look for endocarditis or cardiac infection. PHYSICAL EXAMINATION GENERAL: The patient is seen this morning. He is awake. He is able to answer questions. VITAL SIGNS: Pulse is 81, blood pressure 130/70, respirations are 20, his O2 saturation 99% on room air and his temperature 98.0. HEENT: His head is normocephalic. NECK: Thyroid is clinically not enlarged. JVP is flat. CHEST: The patient has site of pacemaker. LUNGS: Tracheal central. Breath sounds are vesicular. No adventitious sounds are heard. HEART: Normal sinus rhythm. S1 and S2 present. ABDOMEN: Soft, no tenderness. The patient complains of distention due to flatus. CENTRAL NERVOUS SYSTEM: The patient is conscious, rational and oriented. No focal deficits are noted. LABORATORY DATA: His lab work, white count today is 11,500. His hemoglobin is 8.4. The patient is on renal dialysis. He is pending dialysis today and he is scheduled for blood transfusion. His chemistry, BUN 62 and creatinine is 6.6. The patient's other chemical functions are normal. His albumin is 3.1. The patient's blood sugar fluctuates between 109 and 118. MEDICATIONS: The patient is on aspirin. He is on amiodarone 200 mg daily, ferrous sulfate, Flomax, insulin coverage for diabetes. The patient is on Lipitor 40 mg daily, meropenem 500 mg every 8 hours. The patient is on ProAmatine 5 mg p.o. daily and pantoprazole 40 mg daily. The patient is on dialysis for chronic renal disease. His condition is acute. Elaine Lira MD [facility] # [id number] [facility]
--- NOTE | 2018-03-21 13:31 | CP.PCM.PN ---
Subjective - Date & Time of Evaluation Date of Evaluation: 03/21/18 Time of Evaluation: 11:25 - Subjective Subjective: No fevers, not in distress, agitated since he does not know when he is getting dialysis. Objective - Vital Signs/Intake and Output Vital Signs (last 24 hours): Temp Pulse Resp BP Pulse Ox 98.0 F 81 20 129/71 99 03/21/18 06:00 03/21/18 06:00 03/21/18 06:00 03/21/18 06:00 03/21/18 06:00 Intake and Output: 03/21/18 03/21/18 06:59 18:59 Intake Total 1800 Output Total 0 Balance 1800 - Medications Medications: Current Medications Acetaminophen (Tylenol 325mg Tab) 650 mg PO Q6 PRN PRN Reason: TEMP>=99.5F Last Admin: 03/20/18 05:59 Dose: 650 mg Acetaminophen (Tylenol 650 Mg Supp) 650 mg RC Q6H PRN PRN Reason: TEMP>=99.5F Amiodarone HCl (Cordarone) 200 mg PO DAILY [facility] Last Admin: 03/20/18 10:58 Dose: 200 mg Aspirin (Aspirin Chewable) 81 mg PO DAILY [facility] Last Admin: 03/20/18 10:57 Dose: 81 mg Atorvastatin Calcium (Lipitor) 40 mg PO DIN [facility] Last Admin: 03/20/18 17:47 Dose: 40 mg Collagenase (Santyl) 0 gm TOP DAILY [facility] Last Admin: 03/20/18 10:58 Dose: Not Given Ferrous Sulfate (Feosol) 324 mg PO TID [facility] Last Admin: 03/20/18 17:47 Dose: 324 mg Meropenem/Sodium Chloride (Merrem Iv 500 Mg/Ns 50 Ml) 500 mg in 50 mls @ 100 mls/hr IVPB Q24H [facility]; Protocol Stop: 03/24/18 16:01 Last Admin: 03/20/18 17:40 Dose: 100 mls/hr Insulin Human Lispro (Humalog Med) 0 units SC ACHS [facility]; Protocol Last Admin: 03/20/18 22:14 Dose: Not Given Midodrine (Proamatine) 5 mg PO 0800,1200,1600 [facility] Last Admin: 03/21/18 08:28 Dose: 5 mg Non-Formulary Medication (Sevelamer Carbonate [Renvela]) 1 tab PO BID [facility] Last Admin: 03/20/18 17:37 Dose: Not Given Ondansetron HCl (Zofran Inj) 4 mg IVP Q4H PRN PRN Reason: Nausea/Vomiting Pantoprazole Sodium (Protonix Ec Tab) 40 mg PO 0600 [facility] Last Admin: 03/21/18 05:19 Dose: 40 mg Tamsulosin HCl (Flomax) 0.4 mg PO DAILY [facility] Last Admin: 03/20/18 10:57 Dose: 0.4 mg Vitamin B Complex/Vit C/Folic Acid (Nephro-Tyson) 1 tab PO DAILY [facility] Last Admin: 03/20/18 10:58 Dose: 1 tab - Labs Labs: 03/21/18 07:15 03/21/18 07:15 PT 14.5 SECONDS (9.4-12.5) H 03/21/18 07:15 INR 1.26 03/21/18 07:15 APTT 28.9 Seconds (25.1-36.5) 03/21/18 07:15 - Constitutional Appears: Chronically Ill - Head Exam Head Exam: NORMAL INSPECTION - Neck Exam Neck Exam: absent: Meningismus - Respiratory Exam Respiratory Exam: Decreased Breath Sounds - Cardiovascular Exam Cardiovascular Exam: +S1, +S2 - GI/Abdominal Exam GI & Abdominal Exam: Soft. absent: Tenderness Assessment and Plan - Assessment and Plan (Free Text) Plan: Assessment Sepsis due to ESBL E. coli bacteremia, R/O UTI R/O pacemaker infection history of infected right foot ulcers with Serratia chronic CHF chronic renal failure on dialysis DM morbid obesity with BMI 40 obstructive sleep apnea on CPAP sciatica HTN S/P left foot debridement (2015) Plan continue Merrem day 4 from first negative blood cx - patietn refusing straight cath; recommend RASHAUN to rule out pacemaker infection will continue to monitor clinically
--- NOTE | 2018-03-21 14:11 | CARD ---
APPROVED REPORT Date of service: 03/21/2018 EKG Measurement Heart [id number] <Conclusion> Sinus rhythm with 1st degree AV block with occasional premature ventricular complexes Right axis deviation Low voltage QRS Cannot rule out Anterior infarct, age undetermined Abnormal ECG
--- NOTE | 2018-03-21 14:38 | CP.PCM.PN ---
<Joey Loyola - Last Filed: 03/21/18 14:41> Subjective - Date & Time of Evaluation Date of Evaluation: 03/21/18 Time of Evaluation: 14:34 - Subjective Subjective: Patient seen and examined. No acute complaints. Tolerating diet. To have HD today. No bleeding reported. Objective - Vital Signs/Intake and Output Vital Signs (last 24 hours): Temp Pulse Resp BP Pulse Ox 98.7 F 90 18 144/82 99 03/21/18 12:00 03/21/18 12:00 03/21/18 12:00 03/21/18 12:00 03/21/18 06:00 Intake and Output: 03/21/18 03/21/18 06:59 18:59 Intake Total 1800 Output Total 0 Balance 1800 - Medications Medications: Current Medications Acetaminophen (Tylenol 325mg Tab) 650 mg PO Q6 PRN PRN Reason: TEMP>=99.5F Last Admin: 03/20/18 05:59 Dose: 650 mg Acetaminophen (Tylenol 650 Mg Supp) 650 mg RC Q6H PRN PRN Reason: TEMP>=99.5F Amiodarone HCl (Cordarone) 200 mg PO DAILY [facility] Last Admin: 03/21/18 10:31 Dose: 200 mg Aspirin (Aspirin Chewable) 81 mg PO DAILY [facility] Last Admin: 03/21/18 10:31 Dose: 81 mg Atorvastatin Calcium (Lipitor) 40 mg PO DIN [facility] Last Admin: 03/20/18 17:47 Dose: 40 mg Collagenase (Santyl) 0 gm TOP DAILY [facility] Last Admin: 03/20/18 10:58 Dose: Not Given Ferrous Sulfate (Feosol) 324 mg PO TID [facility] Last Admin: 03/21/18 10:31 Dose: 324 mg Meropenem/Sodium Chloride (Merrem Iv 500 Mg/Ns 50 Ml) 500 mg in 50 mls @ 100 mls/hr IVPB Q24H [facility]; Protocol Stop: 03/24/18 16:01 Last Admin: 03/20/18 17:40 Dose: 100 mls/hr Insulin Human Lispro (Humalog Med) 0 units SC ACHS [facility]; Protocol Last Admin: 03/20/18 22:14 Dose: Not Given Midodrine (Proamatine) 5 mg PO 0800,1200,1600 [facility] Last Admin: 03/21/18 08:28 Dose: 5 mg Non-Formulary Medication (Sevelamer Carbonate [Renvela]) 1 tab PO BID [facility] Last Admin: 03/20/18 17:37 Dose: Not Given Ondansetron HCl (Zofran Inj) 4 mg IVP Q4H PRN PRN Reason: Nausea/Vomiting Pantoprazole Sodium (Protonix Ec Tab) 40 mg PO 0600 [facility] Last Admin: 03/21/18 05:19 Dose: 40 mg Tamsulosin HCl (Flomax) 0.4 mg PO DAILY [facility] Last Admin: 03/21/18 10:31 Dose: 0.4 mg Vitamin B Complex/Vit C/Folic Acid (Nephro-Tyson) 1 tab PO DAILY [facility] Last Admin: 03/21/18 10:31 Dose: 1 tab - Labs Labs: 03/21/18 07:15 03/21/18 07:15 PT 14.5 SECONDS (9.4-12.5) H 03/21/18 07:15 INR 1.26 03/21/18 07:15 APTT 28.9 Seconds (25.1-36.5) 03/21/18 07:15 - Constitutional Appears: Non-toxic, Chronically Ill - Head Exam Head Exam: ATRAUMATIC, NORMAL INSPECTION - Eye Exam Eye Exam: EOMI, Normal appearance - Respiratory Exam Respiratory Exam: Clear to Ausculation Bilateral, NORMAL BREATHING PATTERN - Cardiovascular Exam Cardiovascular Exam: REGULAR RHYTHM, +S1, +S2 - GI/Abdominal Exam GI & Abdominal Exam: Soft, Normal Bowel Sounds. absent: Tenderness - Neurological Exam Neurological Exam: Alert, Awake, Oriented x3 - Psychiatric Exam Psychiatric exam: Normal Affect, Normal Mood - Skin Skin Exam: Dry, Normal Color Assessment and Plan - Assessment and Plan (Free Text) Assessment: 67 year old male with PMH of dilated cardiomyopathy (EF 22%) s/p defibrillator, ESRD on HD MWF, HTN, Diabetes, and anemia requiring transfusion presenting with GNR bacteremia sepsis with LE infection. # Acute on Chronic Normocytic Anemia: Suspect multifactorial in nature related to Anemia of Chronic Disease, CKD and possible small bowel losses. # Possible New Cirrhosis: Evidence by prominent caudate lobe and some nodularity on US. Pt with risk factors for WOODRUFF, Cardiasc induced etc. Perihepatic ascites perhaps related to the former but also with underlying Renal disease which could also cause ascites independent of liver disease. Hepatitis panel negative. # ESBL bacteremia: Perhaps related to SBP, but ascites not significant and pt already on broad spectrum abx that would cover usual SBP pathogens. Otherwise, agree that source also likely related to urinary but pt declined straight cath for UA. 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 Wynn; please see attestation for further recs/changes. <Foreign Wynn V - Last Filed: 03/22/18 23:13> Objective - Vital Signs/Intake and Output Vital Signs (last 24 hours): Temp Pulse Resp BP Pulse Ox 98.0 F 85 16 122/76 96 03/22/18 17:34 03/22/18 18:00 03/22/18 17:34 03/22/18 17:34 03/22/18 06:00 Intake and Output: 03/22/18 03/23/18 18:59 06:59 Intake Total 50 1080 Balance 50 1080 - Medications Medications: Current Medications Acetaminophen (Tylenol 325mg Tab) 650 mg PO Q6 PRN PRN Reason: TEMP>=99.5F Last Admin: 03/20/18 05:59 Dose: 650 mg Acetaminophen (Tylenol 650 Mg Supp) 650 mg RC Q6H PRN PRN Reason: TEMP>=99.5F Amiodarone HCl (Cordarone) 200 mg PO DAILY [facility] Last Admin: 03/22/18 09:24 Dose: 200 mg Aspirin (Aspirin Chewable) 81 mg PO DAILY [facility] Last Admin: 03/22/18 09:25 Dose: 81 mg Atorvastatin Calcium (Lipitor) 40 mg PO DIN [facility] Last Admin: 03/22/18 20:51 Dose: 40 mg Collagenase (Santyl) 0 gm TOP DAILY [facility] Last Admin: 03/22/18 09:27 Dose: Not Given Ferrous Sulfate (Feosol) 324 mg PO TID [facility] Last Admin: 03/22/18 17:01 Dose: 324 mg Meropenem/Sodium Chloride (Merrem Iv 500 Mg/Ns 50 Ml) 500 mg in 50 mls @ 100 mls/hr IVPB Q24H [facility]; Protocol Stop: 03/24/18 16:01 Last Admin: 03/22/18 16:53 Dose: 100 mls/hr Insulin Human Lispro (Humalog Med) 0 units SC ACHS [facility]; Protocol Last Admin: 03/22/18 22:00 Dose: Not Given Midodrine (Proamatine) 5 mg PO 0800,1200,1600 [facility] Last Admin: 03/22/18 16:54 Dose: 5 mg Non-Formulary Medication (Sevelamer Carbonate [Renvela]) 1 tab PO BID [facility] Last Admin: 03/22/18 20:50 Dose: Not Given Ondansetron HCl (Zofran Inj) 4 mg IVP Q4H PRN PRN Reason: Nausea/Vomiting Pantoprazole Sodium (Protonix Ec Tab) 40 mg PO 0600 [facility] Last Admin: 03/22/18 05:36 Dose: 40 mg Tamsulosin HCl (Flomax) 0.4 mg PO DAILY [facility] Last Admin: 03/22/18 09:25 Dose: 0.4 mg Vitamin B Complex/Vit C/Folic Acid (Nephro-Tyson) 1 tab PO DAILY [facility] Last Admin: 03/22/18 09:30 Dose: 1 tab - Labs Labs: 03/22/18 06:45 03/22/18 06:45 PT 14.5 SECONDS (9.4-12.5) H 03/21/18 07:15 INR 1.26 03/21/18 07:15 APTT 28.9 Seconds (25.1-36.5) 03/21/18 07:15 Attending/Attestation - Attestation I have personally seen and examined this patient.: Yes I have fully participated in the care of the patient.: Yes I have reviewed all pertinent clinical information, including history, physical exam and plan: Yes Notes (Text): This is a delayed addendum to GI progress report dictated by the GI Fellow. The patient was seen and examined earlier. Medical records, lab studies, imagings were reviewed. Last 24 hours events reviewed. Agreed with the above treatment plan as outlined in GI Fellow 's notes with the addition of the following ? cirrhosis of the liver suspected in view of mild ascites and caudate lobe prominence which is in more suggestive of cirrhosis Rule out portal vein thrombosis requested abdominal Doppler ESBL bacteremia and antibotics as per ID End-stage renal disease on hemodialyss Capsule endoscopy as an outpatient 03/22/18 23:11
--- NOTE | 2018-03-21 14:56 | US ---
Date of service: 03/21/2018 PROCEDURE: Duplex examination portal venous system HISTORY: new ascites to r/o portal vein thrombosis COMPARISON: None TECHNIQUE: Standard protocol for this study/examination. FINDINGS: Patent portal vein. Portal venous flow: Hepatopetal. Unremarkable hepatic arteries and hepatic veins. IMPRESSION: Patent portal venous system documenting hepato pedal flow.
--- NOTE | 2018-03-21 15:47 | CP.PCM.PN ---
Subjective - Date & Time of Evaluation Date of Evaluation: 03/21/18 Time of Evaluation: 09:00 - Subjective Subjective: Pt seen for ulcer to the left foot; this ulcer is secondary to gout arthritis - pt is ESRD on HD; pt states he feels better -is wearing surgical shoe as instructed Objective - Vital Signs/Intake and Output Vital Signs (last 24 hours): Temp Pulse Resp BP Pulse Ox 98.7 F 90 18 144/82 99 03/21/18 12:00 03/21/18 12:00 03/21/18 12:00 03/21/18 12:00 03/21/18 06:00 Intake and Output: 03/21/18 03/21/18 06:59 18:59 Intake Total 1800 Output Total 0 Balance 1800 - Medications Medications: Current Medications Acetaminophen (Tylenol 325mg Tab) 650 mg PO Q6 PRN PRN Reason: TEMP>=99.5F Last Admin: 03/20/18 05:59 Dose: 650 mg Acetaminophen (Tylenol 650 Mg Supp) 650 mg RC Q6H PRN PRN Reason: TEMP>=99.5F Amiodarone HCl (Cordarone) 200 mg PO DAILY [facility] Last Admin: 03/21/18 10:31 Dose: 200 mg Aspirin (Aspirin Chewable) 81 mg PO DAILY [facility] Last Admin: 03/21/18 10:31 Dose: 81 mg Atorvastatin Calcium (Lipitor) 40 mg PO DIN [facility] Last Admin: 03/20/18 17:47 Dose: 40 mg Collagenase (Santyl) 0 gm TOP DAILY [facility] Last Admin: 03/20/18 10:58 Dose: Not Given Ferrous Sulfate (Feosol) 324 mg PO TID [facility] Last Admin: 03/21/18 14:38 Dose: 324 mg Meropenem/Sodium Chloride (Merrem Iv 500 Mg/Ns 50 Ml) 500 mg in 50 mls @ 100 mls/hr IVPB Q24H [facility]; Protocol Stop: 03/24/18 16:01 Last Admin: 03/20/18 17:40 Dose: 100 mls/hr Insulin Human Lispro (Humalog Med) 0 units SC ACHS [facility]; Protocol Last Admin: 03/20/18 22:14 Dose: Not Given Midodrine (Proamatine) 5 mg PO 0800,1200,1600 [facility] Last Admin: 03/21/18 14:38 Dose: 5 mg Non-Formulary Medication (Sevelamer Carbonate [Renvela]) 1 tab PO BID [facility] Last Admin: 03/20/18 17:37 Dose: Not Given Ondansetron HCl (Zofran Inj) 4 mg IVP Q4H PRN PRN Reason: Nausea/Vomiting Pantoprazole Sodium (Protonix Ec Tab) 40 mg PO 0600 [facility] Last Admin: 03/21/18 05:19 Dose: 40 mg Tamsulosin HCl (Flomax) 0.4 mg PO DAILY [facility] Last Admin: 03/21/18 10:31 Dose: 0.4 mg Vitamin B Complex/Vit C/Folic Acid (Nephro-Tyson) 1 tab PO DAILY [facility] Last Admin: 03/21/18 10:31 Dose: 1 tab - Labs Labs: 03/21/18 07:15 03/21/18 07:15 PT 14.5 SECONDS (9.4-12.5) H 03/21/18 07:15 INR 1.26 03/21/18 07:15 APTT 28.9 Seconds (25.1-36.5) 03/21/18 07:15 - Constitutional Appears: Well - Extremities Exam Extremities Exam: Joint Swelling, Normal Capillary Refill. absent: Calf Tenderness, Tenderness Additional comments: Vascular status unchanged; wound is clean granular with no necrosis; tissues improved; no sinus tract no undermining; no bone or underlying structures in the wound; no signs of abcess noted Assessment and Plan - Assessment and Plan (Free Text) Assessment: Stage 3 ulcer left bunion secondary to gout r/o OM Plan: MRI left foot ordered cont local care with foam dresssing offloading with surgical shoe
--- NOTE | 2018-03-21 15:49 | CP.PCM.PN ---
Subjective - Date & Time of Evaluation Date of Evaluation: 03/21/18 Time of Evaluation: 09:00 - Subjective Subjective: ADDENDUM: SINCE PT HAS A PACEMAKE - CAT SCAN ORDERED Objective - Vital Signs/Intake and Output Vital Signs (last 24 hours): Temp Pulse Resp BP Pulse Ox 98.7 F 90 18 144/82 99 03/21/18 12:00 03/21/18 12:00 03/21/18 12:00 03/21/18 12:00 03/21/18 06:00 Intake and Output: 03/21/18 03/21/18 06:59 18:59 Intake Total 1800 Output Total 0 Balance 1800 - Medications Medications: Current Medications Acetaminophen (Tylenol 325mg Tab) 650 mg PO Q6 PRN PRN Reason: TEMP>=99.5F Last Admin: 03/20/18 05:59 Dose: 650 mg Acetaminophen (Tylenol 650 Mg Supp) 650 mg RC Q6H PRN PRN Reason: TEMP>=99.5F Amiodarone HCl (Cordarone) 200 mg PO DAILY [facility] Last Admin: 03/21/18 10:31 Dose: 200 mg Aspirin (Aspirin Chewable) 81 mg PO DAILY [facility] Last Admin: 03/21/18 10:31 Dose: 81 mg Atorvastatin Calcium (Lipitor) 40 mg PO DIN [facility] Last Admin: 03/20/18 17:47 Dose: 40 mg Collagenase (Santyl) 0 gm TOP DAILY [facility] Last Admin: 03/20/18 10:58 Dose: Not Given Ferrous Sulfate (Feosol) 324 mg PO TID [facility] Last Admin: 03/21/18 14:38 Dose: 324 mg Meropenem/Sodium Chloride (Merrem Iv 500 Mg/Ns 50 Ml) 500 mg in 50 mls @ 100 mls/hr IVPB Q24H [facility]; Protocol Stop: 03/24/18 16:01 Last Admin: 03/20/18 17:40 Dose: 100 mls/hr Insulin Human Lispro (Humalog Med) 0 units SC ACHS [facility]; Protocol Last Admin: 03/20/18 22:14 Dose: Not Given Midodrine (Proamatine) 5 mg PO 0800,1200,1600 [facility] Last Admin: 03/21/18 14:38 Dose: 5 mg Non-Formulary Medication (Sevelamer Carbonate [Renvela]) 1 tab PO BID [facility] Last Admin: 03/20/18 17:37 Dose: Not Given Ondansetron HCl (Zofran Inj) 4 mg IVP Q4H PRN PRN Reason: Nausea/Vomiting Pantoprazole Sodium (Protonix Ec Tab) 40 mg PO 0600 [facility] Last Admin: 03/21/18 05:19 Dose: 40 mg Tamsulosin HCl (Flomax) 0.4 mg PO DAILY [facility] Last Admin: 03/21/18 10:31 Dose: 0.4 mg Vitamin B Complex/Vit C/Folic Acid (Nephro-Tyson) 1 tab PO DAILY [facility] Last Admin: 03/21/18 10:31 Dose: 1 tab - Labs Labs: 03/21/18 07:15 03/21/18 07:15 PT 14.5 SECONDS (9.4-12.5) H 03/21/18 07:15 INR 1.26 03/21/18 07:15 APTT 28.9 Seconds (25.1-36.5) 03/21/18 07:15
--- NOTE | 2018-03-21 16:23 | CARD ---
APPROVED REPORT Date of service: 03/21/2018 EXAM: Two-dimensional and M-mode echocardiogram with Doppler and color Doppler. INDICATION Infection:Rule out subacute bacterial endocarditis 2D DIMENSIONS Left Atrium (2D)3.3 (1.6-4.0cm)IVSd1.4 (0.7-1.1cm) LVDd5.2 (3.9-5.9cm)PWd1.5 (0.7-1.1cm) LVDs4.5 (2.5-4.0cm)FS (%) 14.9 % LVEF (%)31.2 (>50%) M-Mode DIMENSIONS Aortic Root2.90 (2.2-3.7cm)Aortic Cusp Exc.1.30 (1.5-2.0cm) Aortic Valve AoV Peak Khekffji755.0cm/Rosales Peak GR.9mmHg Mitral Valve E/A ratio0.0 TDI E/Lateral E'0.0E/Medial E'0.0 Tricuspid Valve TR Peak [id number] [id number] Peak Gr.36mmHg [id number] LEFT VENTRICLE The left ventricle is normal size. There is mild concentric left ventricular hypertrophy. The systolic function is moderately impaired.EF-30% There is Modarate global hypokinesis of the left ventricle. Could not beassessed B/c of arrythmias No left ventricle thrombus noted on this study. There is no ventricular septal defect visualized. There is no left ventricular aneurysm. There is no mass noted in the left ventricle. RIGHT VENTRICLE The right ventricle is moderately dilated. There is normal right ventricular wall thickness. Systolic function is moderately reduced. There is a pacemaker lead in the right ventricle. ATRIA The left atrium size is normal. The right atrium is mildly dilated. There is a catheter/pacemaker lead seen in the right atrium. The interatrial septum is intact with no evidence for an atrial septal defect. AORTIC VALVE The aortic valve is calcified and displays decreased opening. No aortic regurgitation is present. Mild VS aortic Sclerosis. There is no aortic valvular vegetation. MITRAL VALVE The mitral valve is thickened but opens well. Mitral regurgitation is mild to moderate. There is no mitral valve stenosis. There is no evidence of mitral valve prolapse. TRICUSPID VALVE The tricuspid valve leaflets are thickened or calcified, but open well. There is moderate tricuspid regurgitation.RVSP-46 Mmof hg. There is no tricuspid valve stenosis. There is no tricuspid valve prolapse or vegetation. PULMONIC VALVE The pulmonic valve is mildly thickened. There is mild pulmonic valvular regurgitation. There is no pulmonic valvular stenosis. GREAT VESSELS The aortic root is normal in size. The ascending aorta is normal in size. The pulmonary artery is normal. The IVC is dilated. PERICARDIAL EFFUSION There is no pleural effusion. There is no pericardial effusion. <Conclusion> The left ventricle is normal size. There is mild concentric left ventricular hypertrophy. The systolic function is moderately impaired.EF-30% The right ventricle is moderately dilated. There is a pacemaker lead in the right ventricle. Mild VS aortic Sclerosis. Mitral regurgitation is mild to moderate. There is moderate tricuspid regurgitation.RVSP-46 Mmof hg. There is mild pulmonic valvular regurgitation. The IVC is dilated. There is no pericardial effusion. Multiple Echogenic Mobile thread like structures attached to PPM/AICD Lead,Seen in four chamber View, could be Fibrin thread Vs Vegetation, Corelate clinically( More Possiblity of Vegetation, if Blood Culture remains positive).
--- NOTE | 2018-03-21 18:27 | PN ---
DATE: 03/21/2018 SUBJECTIVE: The patient is currently seen en route to echocardiogram. As per the nursing staff, the patient has had guaiac-positive stools through the weekend and last night he did have tarry stools. He will be seen again by GI today. He apparently has active GI bleeding which is likely responsible for his continued decline in his hemoglobin levels. The patient will be receiving 2 units of packed red blood cells with his dialysis treatment scheduled for today. The patient also remains on IV antibiotic therapy for his left foot wound infection. MEDICATIONS: Medication list reviewed. The patient is on aspirin, Cordarone, Feosol, Flomax, insulin, Lipitor, meropenem, Nephro-Tyson, ProAmatine, Protonix, Santyl, Renvela, Tylenol p.r.n. and Zofran p.r.n. OBJECTIVE INTAKE/OUTPUT: Intake 2013, output zero. VITAL SIGNS: Blood pressure presently is 106/60, temperature 98, respiratory rate is 20 with a pulse of 99. Pulse ox 99%. HEENT: Shows him to be normocephalic and atraumatic. Conjunctivae remain pale. Sclerae nonicteric. NECK: Supple. No neck vein distention. CHEST: Clear to auscultation and percussion. No rales, rhonchi or wheezing. CARDIOVASCULAR: Shows a regular rate and rhythm with MR/TR/PI. No S3, no S4, no rub. Positive AICD. ABDOMEN: Soft. Bowel sounds normal. No rebound, guarding or masses. EXTREMITIES: Show diminished lower extremity pulses bilaterally. Has a dressing over his left foot. No drainage into the dressing, no odor. No cyanosis, clubbing or edema. LABORATORY DATA AND IMAGING: CBC: White blood cell count today 11.5, hemoglobin 8.4, platelet count is 141,000. Coags: PT of 14.5 with an INR of 1.26, PTT is 28.9. Chemistries: Sodium 131, BUN 77, creatinine of 8.2. Calcium 7.8. Phosphorus is acceptable at 5. Magnesium is 2. Stool for blood is positive on 03/19/2018 and 03/21/2018. Microbiology: Left foot cultures are positive for coag-negative Staph. Blood cultures are positive for E-coli ESBL. ASSESSMENT: 1. Infected left foot wound. Positive bacteremia. The patient remains on antibiotic therapy. No evidence for osteomyelitis on x-rays that were done. The patient is being followed by Infectious Disease and Podiatry. 2. History of end-stage renal disease. The patient will receive his routine Wednesday, Wednesday and Wednesday dialysis. He is scheduled for dialysis after the echocardiogram to be done today. 3. History of hypertension with his cardiomyopathy. The patient remains borderline hypotensive. He is on no blood pressure medication at present. Hydralazine was discontinued and the patient does remain on ProAmatine. 4. History of dilated cardiomyopathy, ejection fraction 22% with mitral regurgitation/tricuspid regurgitation/pulmonary insufficiency. The patient has an automatic implantable cardioverter-defibrillator. Echocardiogram is being done. The patient is being followed by Cardiology. He did have mild elevations of troponin on admission. 5. History of severe anemia. The patient has already received 3 units of packed red blood cells. He is scheduled to receive two more units today. Gastroenterology note appreciated. The patient last night developed tarry stools and his guaiacs remain positive. It is likely that he has active gastrointestinal bleeding, and we will wait for Gastroenterology's input. 6. History of secondary hyperparathyroidism. Phosphorus level is acceptable at 5. The patient will continue renal diet and binder therapy. 7. Elevated prostate-specific antigen level. The patient to be seen by Urology. PLAN: 1. Hemodialysis to follow after today's echocardiogram. 2. Continue antibiotic for his foot infection. 3. Appreciate Podiatry followup. 4. evaluation pending for his elevated PSA level. 5. Await further GI input in light of the tarry stools that he had in the last 12 to 24 hours and persistently guaiac-positive stools. 6. Transfuse 2 units of packed red blood cells on dialysis today. 7. Continue close renal followup and monitoring of the patient on telemetry. Chidi Ramirez MD
[2018-03-21] MEDS: MEROPENEM 500 MG in NS 500 MG/50 ML BAG IVPB SCH (18:51)
[2018-03-22] MEDS: Pantoprazole 40 mg EC Tab PO SCH (05:36)
[2018-03-22] MEDS: Insulin Lispro (humaLOG) MEDIUM Coverage SC SCH ×4 (07:30→22:00)
[2018-03-22 07:47] LABS: BASO # 0.02 K/mm3 (0.0-2.0); BASO % 0.2 % (0.0-3.0); EOS # 0.4 (0.0-0.7); EOS % 3.8 % (1.5-5.0); GRAN # 8.69 (1.4-6.5); GRAN % 76.7 % (50.0-68.0); HEMOGLOBIN 10.4 g/dL (14.0-18.0); LYMPH # 1.3 (1.2-3.4); LYMPH % 11.1 % (22.0-35.0); MEAN CELL VOLUME 91.6 fl (80.0-105.0); MEAN CORPUSCULAR HEMOGLOBIN 30.2 pg (25.0-35.0); MEAN PLATELET VOLUME 9.9 fl (7.0-11.0); MONO # 0.9 (0.1-0.6); MONO % 8.2 % (1.0-6.0); RBC 3.44 10^6/uL (3.5-6.1); WHITE BLOOD COUNT 11.3 10^3/uL (4.5-11.0)
[2018-03-22 08:16] LABS: ALB/GLOB RATIO 0.9 (1.1-1.8); ALBUMIN 3.1 g/dL (3.0-4.8); BILIRUBIN,DIRECT 0.9 mg/dL (0.0-0.4); CALCIUM 7.8 mg/dL (8.4-10.5)
[2018-03-22] MEDS: SEVELAMER CARBONATE PO SCH ×2 (09:27→20:50)
[2018-03-22] MEDS: Collagenase 250 Units/gm Ointment(30 gm) TOP SCH (09:27)
[2018-03-22] MEDS: Multivitamin Vitamin B Complex (Nephro-Vite) Tab PO SCH (09:30)
--- NOTE | 2018-03-22 10:48 | CP.PCM.PN ---
<Joey Loyola - Last Filed: 03/22/18 10:55> Subjective - Date & Time of Evaluation Date of Evaluation: 03/22/18 Time of Evaluation: 10:45 - Subjective Subjective: Patient states he had loose BM last night. He states it was brown in color, "not black". Nursing reported tarry stool in note. He had 2u pRBCs given last night and Hb appropriately responded. Tolerating diet. 5pt ROS completed and negative except for above. Objective - Vital Signs/Intake and Output Vital Signs (last 24 hours): Temp Pulse Resp BP Pulse Ox 98.0 F 93 H 20 109/73 96 03/22/18 06:00 03/22/18 09:24 03/22/18 06:00 03/22/18 06:00 03/22/18 06:00 Intake and Output: 03/22/18 03/22/18 06:59 18:59 Intake Total 470 Balance 470 - Medications Medications: Current Medications Acetaminophen (Tylenol 325mg Tab) 650 mg PO Q6 PRN PRN Reason: TEMP>=99.5F Last Admin: 03/20/18 05:59 Dose: 650 mg Acetaminophen (Tylenol 650 Mg Supp) 650 mg RC Q6H PRN PRN Reason: TEMP>=99.5F Amiodarone HCl (Cordarone) 200 mg PO DAILY [facility] Last Admin: 03/22/18 09:24 Dose: 200 mg Aspirin (Aspirin Chewable) 81 mg PO DAILY [facility] Last Admin: 03/22/18 09:25 Dose: 81 mg Atorvastatin Calcium (Lipitor) 40 mg PO DIN [facility] Last Admin: 03/21/18 18:52 Dose: 40 mg Collagenase (Santyl) 0 gm TOP DAILY [facility] Last Admin: 03/22/18 09:27 Dose: Not Given Ferrous Sulfate (Feosol) 324 mg PO TID [facility] Last Admin: 03/22/18 09:25 Dose: 324 mg Meropenem/Sodium Chloride (Merrem Iv 500 Mg/Ns 50 Ml) 500 mg in 50 mls @ 100 mls/hr IVPB Q24H [facility]; Protocol Stop: 03/24/18 16:01 Last Admin: 03/21/18 18:51 Dose: 100 mls/hr Insulin Human Lispro (Humalog Med) 0 units SC ACHS [facility]; Protocol Last Admin: 03/22/18 07:30 Dose: Not Given Midodrine (Proamatine) 5 mg PO 0800,1200,1600 [facility] Last Admin: 03/22/18 09:24 Dose: 5 mg Non-Formulary Medication (Sevelamer Carbonate [Renvela]) 1 tab PO BID [facility] Last Admin: 03/22/18 09:27 Dose: Not Given Ondansetron HCl (Zofran Inj) 4 mg IVP Q4H PRN PRN Reason: Nausea/Vomiting Pantoprazole Sodium (Protonix Ec Tab) 40 mg PO 0600 [facility] Last Admin: 03/22/18 05:36 Dose: 40 mg Tamsulosin HCl (Flomax) 0.4 mg PO DAILY [facility] Last Admin: 03/22/18 09:25 Dose: 0.4 mg Vitamin B Complex/Vit C/Folic Acid (Nephro-Tyson) 1 tab PO DAILY [facility] Last Admin: 03/22/18 09:30 Dose: 1 tab - Labs Labs: 03/22/18 06:45 03/22/18 06:45 PT 14.5 SECONDS (9.4-12.5) H 03/21/18 07:15 INR 1.26 03/21/18 07:15 APTT 28.9 Seconds (25.1-36.5) 03/21/18 07:15 - Constitutional Appears: Non-toxic, No Acute Distress, Chronically Ill - Head Exam Head Exam: ATRAUMATIC, NORMAL INSPECTION - Eye Exam Eye Exam: EOMI, Normal appearance - ENT Exam ENT Exam: Mucous Membranes Moist, Normal Exam - Respiratory Exam Respiratory Exam: Clear to Ausculation Bilateral, NORMAL BREATHING PATTERN - Cardiovascular Exam Cardiovascular Exam: REGULAR RHYTHM, +S1, +S2 - GI/Abdominal Exam GI & Abdominal Exam: Soft, Normal Bowel Sounds. absent: Tenderness - Neurological Exam Neurological Exam: Alert, Awake, Oriented x3 - Psychiatric Exam Psychiatric exam: Normal Affect, Normal Mood - Skin Skin Exam: Dry, Normal Color Assessment and Plan - Assessment and Plan (Free Text) Assessment: 67 year old male with PMH of dilated cardiomyopathy (EF 22%) s/p defibrillator, ESRD on HD MWF, HTN, Diabetes, and anemia requiring transfusion presenting with GNR bacteremia sepsis with LE infection. # Acute on Chronic Normocytic Anemia: Suspect multifactorial in nature related to Anemia of Chronic Disease, CKD and possible small bowel losses. # Possible New Cirrhosis: Evidence by prominent caudate lobe and some nodularity on US. Pt with risk factors for WOODRUFF, Cardiasc induced etc. Perihepatic ascites perhaps related to the former but also with underlying Renal disease which could also cause ascites independent of liver disease. Hepatitis panel negative. # ESBL bacteremia: Perhaps related to SBP, but ascites not significant and pt already on broad spectrum abx that would cover usual SBP pathogens. Otherwise, agree that source also likely related to urinary but pt declined straight cath for UA. Plan: - Abd Duplex: No thrombus - No signs of active GI bleed at this time - Recent bone marrow biopsy suggestive of anemia of chronic disease - Consider outpatient capsule endoscopy for small bowel evaluation for AVMs and/or other pathology - s/p 2u pRBCs 03/22/18 with appropriate Hb response. 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 Wynn; please see attestation for further recs/changes. <Foreign Wynn V - Last Filed: 03/22/18 23:10> Objective - Vital Signs/Intake and Output Vital Signs (last 24 hours): Temp Pulse Resp BP Pulse Ox 98.0 F 85 16 122/76 96 03/22/18 17:34 03/22/18 18:00 03/22/18 17:34 03/22/18 17:34 03/22/18 06:00 Intake and Output: 03/22/18 03/23/18 18:59 06:59 Intake Total 50 1080 Balance 50 1080 - Medications Medications: Current Medications Acetaminophen (Tylenol 325mg Tab) 650 mg PO Q6 PRN PRN Reason: TEMP>=99.5F Last Admin: 03/20/18 05:59 Dose: 650 mg Acetaminophen (Tylenol 650 Mg Supp) 650 mg RC Q6H PRN PRN Reason: TEMP>=99.5F Amiodarone HCl (Cordarone) 200 mg PO DAILY [facility] Last Admin: 03/22/18 09:24 Dose: 200 mg Aspirin (Aspirin Chewable) 81 mg PO DAILY [facility] Last Admin: 03/22/18 09:25 Dose: 81 mg Atorvastatin Calcium (Lipitor) 40 mg PO DIN [facility] Last Admin: 03/22/18 20:51 Dose: 40 mg Collagenase (Santyl) 0 gm TOP DAILY [facility] Last Admin: 03/22/18 09:27 Dose: Not Given Ferrous Sulfate (Feosol) 324 mg PO TID [facility] Last Admin: 03/22/18 17:01 Dose: 324 mg Meropenem/Sodium Chloride (Merrem Iv 500 Mg/Ns 50 Ml) 500 mg in 50 mls @ 100 mls/hr IVPB Q24H [facility]; Protocol Stop: 03/24/18 16:01 Last Admin: 03/22/18 16:53 Dose: 100 mls/hr Insulin Human Lispro (Humalog Med) 0 units SC ACHS [facility]; Protocol Last Admin: 03/22/18 22:00 Dose: Not Given Midodrine (Proamatine) 5 mg PO 0800,1200,1600 [facility] Last Admin: 03/22/18 16:54 Dose: 5 mg Non-Formulary Medication (Sevelamer Carbonate [Renvela]) 1 tab PO BID [facility] Last Admin: 03/22/18 20:50 Dose: Not Given Ondansetron HCl (Zofran Inj) 4 mg IVP Q4H PRN PRN Reason: Nausea/Vomiting Pantoprazole Sodium (Protonix Ec Tab) 40 mg PO 0600 [facility] Last Admin: 03/22/18 05:36 Dose: 40 mg Tamsulosin HCl (Flomax) 0.4 mg PO DAILY [facility] Last Admin: 03/22/18 09:25 Dose: 0.4 mg Vitamin B Complex/Vit C/Folic Acid (Nephro-Tyson) 1 tab PO DAILY [facility] Last Admin: 03/22/18 09:30 Dose: 1 tab - Labs Labs: 03/22/18 06:45 03/22/18 06:45 PT 14.5 SECONDS (9.4-12.5) H 03/21/18 07:15 INR 1.26 03/21/18 07:15 APTT 28.9 Seconds (25.1-36.5) 03/21/18 07:15 Attending/Attestation - Attestation I have personally seen and examined this patient.: Yes I have fully participated in the care of the patient.: Yes I have reviewed all pertinent clinical information, including history, physical exam and plan: Yes Notes (Text): This is an addendum to GI progress report dictated by the GI Fellow. The patient was seen and examined earlier. Medical records, lab studies, imagings were reviewed. Last 24 hours events reviewed. Agreed with the above treatment plan as outlined in GI Fellow 's notes with the addition of the following abdominal Doppler revealed the normal portal flow Status post transfusion hemoglob stable The etiology for anemia is probably multifactorial, contributing etiologies should include iron deficiency, anemia of chronic disease macrocytic/normocytic anemia, History of cecal AVM status post right Therapy Would recommend 1 hematology for follow-up 2. Capsule endoscopy as outpatient 3. Continue antibiotics for ESBL bacteremia as per ID 03/22/18 23:07
[2018-03-22 11:09] LABS: IRON 38 ug/dL (45-180)
[2018-03-22 11:18] LABS: % IRON SATURATION 20 % (20-55); TOTAL IRON BINDING CAPACITY 192 ug/dL (261-462)
--- NOTE | 2018-03-22 11:49 | PN ---
DATE: 03/22/2018 SUBJECTIVE The patient is currently seen on telemetry, sitting up in a chair. He states he would like to go home soon. He does remain on antibiotic therapy for his left foot infection. The patient's blood cultures were positive and his left foot cultures were positive. The patient received 2 units of packed red blood cells with dialysis. Yesterday's hemoglobin is now excellent at 10.4. He was seen by GI in the morning and was told that there is no intervention on their part that needs to take place at this point in time. Apparently, the patient has had no further dark stools. MEDICATIONS: Medication list reviewed. The patient is on aspirin, amiodarone, Feosol, Flomax, insulin, Lipitor, meropenem, Nephro-Tyson, ProAmatine, Protonix, Santyl, Renvela, Tylenol p.r.n. and Zofran p.r.n. OBJECTIVE: INTAKE/OUTPUT: Intake 470, output hemodialysis. 2500 mL were removed. VITAL SIGNS: Blood pressure is 109/73, temperature 98, respiratory rate is 20 with a pulse of 93, pulse ox 96%. HEENT: Normocephalic, atraumatic. Conjunctivae are pale. Sclerae nonicteric. NECK: Supple. No neck vein distention. CHEST: Clear to auscultation and percussion. No rales, rhonchi or wheezing. CARDIOVASCULAR: Shows a regular rate and rhythm with MR/TR/PI. No S3, no S4, no rub. Positive AICD. ABDOMEN: Soft. Bowel sounds normal. No rebound, guarding or masses. EXTREMITIES: Show no lower extremity cyanosis, clubbing or edema. He has a dressing over his left foot. There is no drainage and no odor. LABORATORY DATA AND IMAGING STUDIES: CBC, white blood cell count today 11.3, hemoglobin is up to 10.4 post transfusion. Platelet count is 154,000. The patient has received a total of 5 units of packed red blood cells. Chemistries today, BUN 47 with a creatinine of 6.0. Electrolytes are normal. Glucose is 95. Calcium 7.8, corrects to normal for an albumin of 3.1. Phosphorus 4.4 with a magnesium level of 2.1. Microbiology, left foot cultures were positive for coag-negative staph. Blood cultures are positive for E-coli ESBL. ASSESSMENT: 1. Infected left foot wound. This is in the area of the big toe where the patient had a bunion. The patient has been followed by Dr. Contreras and wound appears to be stable. No evidence for osteomyelitis. He is being followed by Podiatry and Infectious Disease. In light of his positive blood cultures, there is a possibility that he could have an infection around the automatic implantable cardioverter defibrillator wires. He will likely need a prolonged course of antibiotic therapy at least 2 weeks. Uncertain whether this could take place in the outpatient setting. 2. History of end-stage renal disease. The patient will receive his routine dialysis Wednesday, Wednesday, Wednesday. He is scheduled for tomorrow. 3. History of hypertension with cardiomyopathy. The patient remains mildly hypotensive. He is on no blood pressure medication. He does continue on ProAmatine for blood pressure support. An echocardiogram was done which showed mild concentric left ventricular hypertrophy, ejection fraction 30%. Automatic implantable cardioverter defibrillator leads in the right ventricle. Right ventricle is dilated. Mitral regurgitation, mild aortic stenosis, mild pulmonic insufficiency. Moderate tricuspid regurgitation. Multiple echogenic mobile thread-like structures were attached to the automatic implantable cardioverter defibrillator leads. This could be a vegetation. Perhaps the patient has an automatic implantable cardioverter defibrillator pacemaker wire infection. 4. History of severe anemia. The patient received a total of 5 units of packed red blood cells. Hemoglobin is now stable in the 10-11 range. The patient apparently was seen by GI. No intervention planned at this point in time. He states that his stools have turned back to Brown. 5. History of secondary hyperparathyroidism. Phosphorus level is controlled at 4.4. The patient will continue renal diet and binder therapy. 6. History of elevated PSA level. The patient was to have been seen by Urology. PLAN: 1. Continue 3 times a week dialysis. 2. Continue antibiotic for his foot infection. Further evaluation for possible infection of the AICD wire. Await further input from Infectious Disease. 3. Appreciate Podiatry followup. 4. evaluation for his elevated PSA appears to still be pending. 5. The patient apparently was seen by GI for his guaiac positive stools and dark stools 24 hours ago. Will await their definitive evaluation. 6. Close renal followup during hospitalization with dialysis tomorrow. Chidi Ramirez MD [facility]
--- NOTE | 2018-03-22 12:08 | CP.PCM.PN ---
<Dayne Garg - Last Filed: 03/22/18 12:05> Subjective - Date & Time of Evaluation Date of Evaluation: 03/22/18 Time of Evaluation: 12:05 - Subjective Subjective: Podiatry progress note for Dr. Contreras 67M seen and evaluated at bedside. Patient sitting up in chair comfortably. States he feels much better. States contact precautions are for his wound. Denies pain or discomfort in left foot. Denies N/V/F/C and has no other acute complaints. Objective - Vital Signs/Intake and Output Vital Signs (last 24 hours): Temp Pulse Resp BP Pulse Ox 98.2 F 80 19 107/69 96 03/22/18 11:49 03/22/18 11:49 03/22/18 11:49 03/22/18 11:49 03/22/18 06:00 Intake and Output: 03/22/18 03/22/18 06:59 18:59 Intake Total 470 Balance 470 - Medications Medications: Current Medications Acetaminophen (Tylenol 325mg Tab) 650 mg PO Q6 PRN PRN Reason: TEMP>=99.5F Last Admin: 03/20/18 05:59 Dose: 650 mg Acetaminophen (Tylenol 650 Mg Supp) 650 mg RC Q6H PRN PRN Reason: TEMP>=99.5F Amiodarone HCl (Cordarone) 200 mg PO DAILY [facility] Last Admin: 03/22/18 09:24 Dose: 200 mg Aspirin (Aspirin Chewable) 81 mg PO DAILY [facility] Last Admin: 03/22/18 09:25 Dose: 81 mg Atorvastatin Calcium (Lipitor) 40 mg PO DIN [facility] Last Admin: 03/21/18 18:52 Dose: 40 mg Collagenase (Santyl) 0 gm TOP DAILY [facility] Last Admin: 03/22/18 09:27 Dose: Not Given Ferrous Sulfate (Feosol) 324 mg PO TID [facility] Last Admin: 03/22/18 09:25 Dose: 324 mg Meropenem/Sodium Chloride (Merrem Iv 500 Mg/Ns 50 Ml) 500 mg in 50 mls @ 100 mls/hr IVPB Q24H [facility]; Protocol Stop: 03/24/18 16:01 Last Admin: 03/21/18 18:51 Dose: 100 mls/hr Insulin Human Lispro (Humalog Med) 0 units SC ACHS [facility]; Protocol Last Admin: 03/22/18 07:30 Dose: Not Given Midodrine (Proamatine) 5 mg PO 0800,1200,1600 [facility] Last Admin: 03/22/18 09:24 Dose: 5 mg Non-Formulary Medication (Sevelamer Carbonate [Renvela]) 1 tab PO BID [facility] Last Admin: 03/22/18 09:27 Dose: Not Given Ondansetron HCl (Zofran Inj) 4 mg IVP Q4H PRN PRN Reason: Nausea/Vomiting Pantoprazole Sodium (Protonix Ec Tab) 40 mg PO 0600 [facility] Last Admin: 03/22/18 05:36 Dose: 40 mg Tamsulosin HCl (Flomax) 0.4 mg PO DAILY [facility] Last Admin: 03/22/18 09:25 Dose: 0.4 mg Vitamin B Complex/Vit C/Folic Acid (Nephro-Tyson) 1 tab PO DAILY [facility] Last Admin: 03/22/18 09:30 Dose: 1 tab - Labs Labs: 03/22/18 06:45 03/22/18 06:45 PT 14.5 SECONDS (9.4-12.5) H 03/21/18 07:15 INR 1.26 03/21/18 07:15 APTT 28.9 Seconds (25.1-36.5) 03/21/18 07:15 - Constitutional Appears: Well, Non-toxic, No Acute Distress - Head Exam Head Exam: ATRAUMATIC, NORMOCEPHALIC - Extremities Exam Additional comments: Vasc: DP and PT faintly palpable, CFT <3 seconds X 10, no edema, TG warm to warm, mild edema appreciated circumfrentially to b/l lower extremities Ortho: HAV deformities noted bilaterally, MMT 5/5 bilaterally, no posterior calf pain noted Neuro: Gross sensation intact, protective sensation diminished Derm: 2 cm X 1.5 cm wound at the dorso-medial aspect of the left 1st MTPJ, fibrogranular wound base noted, no drainage noted, minimal erythema left 1st MTPJ, no malodor, no probe to bone, no tunneling or tracking, no cellulitis appreciated, no clinical signs of infection at this time - Neurological Exam Neurological Exam: Alert, Awake, Oriented x3 - Psychiatric Exam Psychiatric exam: Normal Affect, Normal Mood Assessment and Plan - Assessment and Plan (Free Text) Assessment: 67M with L foot ulceration. Plan: Patient seen and evaluated Discussed in detail with Dr. 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 No evidence of OM Will continue to follow <Funmi Contreras - Last Filed: 03/26/18 14:17> Objective - Vital Signs/Intake and Output Vital Signs (last 24 hours): Temp Pulse Resp BP Pulse Ox 98.5 F 73 20 126/73 98 03/25/18 06:00 03/25/18 14:51 03/25/18 06:00 03/25/18 14:51 03/25/18 06:00 - Labs Labs: 03/25/18 09:00 03/25/18 09:00 PT 14.5 SECONDS (9.4-12.5) H 03/21/18 07:15 INR 1.26 03/21/18 07:15 APTT 28.9 Seconds (25.1-36.5) 03/21/18 07:15 Attending/Attestation - Attestation I have personally seen and examined this patient.: Yes I have fully participated in the care of the patient.: Yes I have reviewed all pertinent clinical information, including history, physical exam and plan: Yes
--- NOTE | 2018-03-22 13:26 | PN ---
DATE: 03/22/2018 SUBJECTIVE: The patient is in bed, in no acute distress. PHYSICAL EXAMINATION VITAL SIGNS: Temperature is 98, blood pressure is 109/70 and respiratory rate of 20. HEENT: Unremarkable. NECK: Supple. LUNGS: Have decreased breath sounds. HEART: Normal S1 and S2. ABDOMEN: Soft and nontender. LABORATORY DATA: Reveals a white count of 11,300, hemoglobin of 10 and platelets of 154. Chemistry reveals a BUN of 47 and creatinine of 6.0. PSA is noted. Stool occult blood is positive. Influenza is negative. Microbiology reveals the repeat blood cultures are negative. Stool for C. diff antigen and toxin are both negative. The patient had an echo by Dr. Martins yesterday, multiple echogenic structures attached to the pacemaker. Review of orders reveals the patient is on meropenem. ASSESSMENT AND PLAN: A 67-year-old male with sepsis with extended-spectrum beta-lactamase Escherichia coli bacteremia, positive echo, transesophageal echo consistent with endocarditis will need 4 to 6 weeks of antibiotics and possible removal of the pacemaker as per Cardiology and thoracic surgical evaluation. The patient with renal failure, diabetic. If that is not possible, another option is to treat with antibiotics 4 to 6 weeks removal of the pacemaker not possible, one other option is to treat that with antibiotics 4 to 6 weeks if the same organism reoccurs after his discontinuation of the antibiotics that would be more convincing evidence also of a pacemaker wire infection. We will discuss with you. Charlie Taylor MD
[2018-03-22] MEDS: MEROPENEM 500 MG in NS 500 MG/50 ML BAG IVPB SCH (16:53)
--- NOTE | 2018-03-22 19:36 | PN ---
DATE: 03/22/2018 SUBJECTIVE: The patient is seen lying in the bed in room 270, bed 1. The patient was seen in the case preparer and liner hours. Overnight nurse's notes were reviewed.. The patient was seen in the case preparer and liner hours. The patient was seen and examined. The patient had a tarry bowel movement according to the nurse'' note.. The patient has been maintained in ESBL precautions. The patient had a bowel movement overnight. PHYSICAL EXAMINATION: VITAL SIGNS: T-max 98.2. Telemetry shows heart rate 77, 80, 93, 71, blood pressure 109/73, 107/69, 110/69, 106/90 respiration 18-19, O2 sat 96%. HEENT: Head examination normocephalic, atraumatic. HEENT examination shows pinkish pale conjunctivae. Anicteric sclerae. No oropharyngeal lesion. No neck rigidity. CHEST: Shows positive left upper chest AICD, chest examination kyphosis. LUNGS: Shows no audible crackle, rales or wheezing. CARDIOVASCULAR: S1, S2. Positive systolic murmur left sternal border, right second intercostal space, left second intercostal space. ABDOMEN: Soft. Positive bowel sounds. GENITALIA: Male. RECTAL: Deferred. EXTREMITIES: Lower extremity shows positive dressing of the left foot. Positive left upper extremity AV fistula, positive thrill. MUSCULOSKELETAL: Shows a body mass index of 27. DIAGNOSTICS: , WBC 11.3, hemoglobin/hematocrit 10.4/ 31.5, platelets 154. Granulocytes 77% segs. Sodium 136, potassium 3.9, chloride 98, CO2 of 29, anion gap 14, BUN 47, creatinine 6, GFR 9, glucose 95, calcium 7.8, phosphorus 4.4, magnesium 2.1, iron 38, iron saturation, TIBC 192, saturation 20, transferrin 132 which is low. LFTs are within normal limit. Stool occult blood positive x2. The patient's repeat blood cultures are negative. C diff antigen toxin negative. Blood cultures are growing ESBL Escherichia coli. The patient received total 5 units of PRBC. IMPRESSION AND PLAN: 1. Extended-spectrum beta-lactamase history Escherichia coli bacteremia and sepsis. 2. Dilated cardiomyopathy with ejection fraction of 31%. 3. Pulmonary hypertension with right ventricular systolic pressure of 46 mmHg and thickened and calcified tricuspid valve with moderate tricuspid regurgitation. 4. Concentric left ventricular hypertrophy. 5. Moderately impaired left ventricular systolic function with left ventricle ejection fraction of 30%. 6. Moderate global left ventricular hypokinesis. 7. Moderately dilated left ventricle with moderately reduced right ventricular systolic function. 8. calcified aortic valve with decreased opening. 9. Mild aortic stenosis versus aortic sclerosis. 10. Moderate mitral regurgitation. 11. Mild pulmonic regurgitation. 12. Moderate mitral regurgitation with moderate tricuspid regurgitation and pulmonary hypertension. 13. Multiple echogenic mobile structures attached to the pacemaker automated implantable cardioverter defibrillator lead, most probably vegetation. 14. Left foot ulceration. 15. Right axis deviation. 16. Gastrointestinal bleeding with stool occult blood positive. 17. Questionable cirrhosis. 18. End-stage renal disease, hemodialysis-dependent three times a week via the left upper extremity AV fistula. 19. Dilated nonischemic cardiomyopathy. 20. Secondary hyperparathyroidism. 21. Elevated prostate specific antigen, etiology undetermined. 22. 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 23. Hepatic cirrhosis with prominent quadrate lobe and nodular contour. 24. Cholelithiasis with gallbladder wall thickening and edema without gallbladder distention. 25. Hepatic cirrhosis with trace perihepatic ascites. 26. 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 27. Moderate ascites. 28. Urinary bladder mural thickening and prostatomegaly. 29. Hypotension. 30. Leukocytosis with granulocytosis. 31. Severe symptomatic anemia. 32. Status post 5 units of PRBC transfusion. 33. Transient lactic acidosis. 34. Mild hyponatremia. 35. Elevated troponin of 0.16, etiology undetermined. 36. Elevated PSA of greater than 43. 37. Questionable gastrointestinal bleeding with fecal occult blood positive. 38. Coagulase-negative Staphylococcus left foot toe infection and cellulitis. 39. History of noncompliance. 40. Gait dysfunction. 41. Deconditioning, 42. Upper extremity contractures. 43. Hyperlipidemia. PLAN: Plan at this time, the patient has been ordered repeat labs. The patient has been currently on aspirin 81 mg p.o. daily, amiodarone 200 mg daily, ferrous sulfate 324 three times a day, Flomax 0.4 mg daily Humalog medium dose sliding scale coverage a.c. and h.s., Lipitor 40 mg daily, meropenem 500 mg IV every 24 hours, Nephro-Tyson 1 tablet daily, ProAmatine 5 mg three times a day, Protonix 40 mg daily, Santyl daily, Renvela 1 tablet b.i.d., Tylenol 650 mg p.o. suppository every 6 hours p.r.n., Zofran 4 mg IV every [address] scan of the lower extremity has been ordered by Dr. Contreras transesophageal echo has been ordered, renal diet ordered. It seems that the patient's IV dobutamine drip has been stopped. The patient's IV dobutamine drip was discontinued yesterday by Dr. Kamari Watt. At present, the patient will be continued on IV meropenem, physical therapy, occupational therapy, ambulation therapy. Current consultation Nephrology, Infectious Disease, Urology, Cardiology, Gastroenterology, Podiatry. The patient's overall prognosis is guarded. At present, the patient has been updated about his condition, diagnosis, test results at length and all questions concerned answered, which he acknowledged understands. Dictated and electronically signed, not read. Geoffrey Thacker MD
[2018-03-23] MEDS: Pantoprazole 40 mg EC Tab PO SCH (05:23)
[2018-03-23] MEDS: Insulin Lispro (humaLOG) MEDIUM Coverage SC SCH ×4 (08:20→22:05)
[2018-03-23 09:32] LABS: BASO # 0.03 K/mm3 (0.0-2.0); BASO % 0.3 % (0.0-3.0); EOS # 0.4 (0.0-0.7); EOS % 3.8 % (1.5-5.0); GRAN # 8.29 (1.4-6.5); GRAN % 80.6 % (50.0-68.0); HEMOGLOBIN 9.8 g/dL (14.0-18.0); LYMPH # 1.2 (1.2-3.4); LYMPH % 11.6 % (22.0-35.0); MEAN CELL VOLUME 92.5 fl (80.0-105.0); MEAN CORPUSCULAR HEMOGLOBIN 30.4 pg (25.0-35.0); MEAN CORPUSCULAR HGB CONC 32.9 g/dl (31.0-37.0); MEAN PLATELET VOLUME 9.7 fl (7.0-11.0); MONO # 0.4 (0.1-0.6); MONO % 3.7 % (1.0-6.0); RBC 3.22 10^6/uL (3.5-6.1); RED CELL DISTRIBUTION WIDTH 16.9 % (11.5-14.5); WHITE BLOOD COUNT 10.3 10^3/uL (4.5-11.0)
[2018-03-23 09:54] LABS: ALB/GLOB RATIO 0.9 (1.1-1.8); ALBUMIN 3.2 g/dL (3.0-4.8)
--- NOTE | 2018-03-23 13:01 | CP.PCM.PN ---
<Ellie Trejo - Last Filed: 03/23/18 15:08> Subjective - Date & Time of Evaluation Date of Evaluation: 03/23/18 Time of Evaluation: 12:28 - Subjective Subjective: Podiatry progress note for Dr. Contreras 67M seen and evaluated at bedside. Patient sitting up in chair comfortably. States he feels much better. States contact precautions are for his wound. Denies pain or discomfort in left foot. Denies N/V/F/C and has no other acute complaints. Objective - Vital Signs/Intake and Output Vital Signs (last 24 hours): Temp Pulse Resp BP Pulse Ox 98.2 F 64 20 93/53 L 97 03/23/18 06:00 03/23/18 10:00 03/23/18 06:00 03/23/18 06:00 03/23/18 06:00 Intake and Output: 03/23/18 03/23/18 06:59 18:59 Intake Total 1080 Balance 1080 - Medications Medications: Current Medications Acetaminophen (Tylenol 325mg Tab) 650 mg PO Q6 PRN PRN Reason: TEMP>=99.5F Last Admin: 03/20/18 05:59 Dose: 650 mg Acetaminophen (Tylenol 650 Mg Supp) 650 mg RC Q6H PRN PRN Reason: TEMP>=99.5F Amiodarone HCl (Cordarone) 200 mg PO DAILY [facility] Last Admin: 03/22/18 09:24 Dose: 200 mg Aspirin (Aspirin Chewable) 81 mg PO DAILY [facility] Last Admin: 03/22/18 09:25 Dose: 81 mg Atorvastatin Calcium (Lipitor) 40 mg PO DIN [facility] Last Admin: 03/22/18 20:51 Dose: 40 mg Collagenase (Santyl) 0 gm TOP DAILY [facility] Last Admin: 03/22/18 09:27 Dose: Not Given Ferrous Sulfate (Feosol) 324 mg PO TID [facility] Last Admin: 03/22/18 17:01 Dose: 324 mg Meropenem/Sodium Chloride (Merrem Iv 500 Mg/Ns 50 Ml) 500 mg in 50 mls @ 100 mls/hr IVPB Q24H [facility]; Protocol Stop: 03/24/18 16:01 Last Admin: 03/22/18 16:53 Dose: 100 mls/hr Insulin Human Lispro (Humalog Med) 0 units SC ACHS [facility]; Protocol Last Admin: 03/23/18 08:20 Dose: Not Given Midodrine (Proamatine) 5 mg PO 0800,1200,1600 [facility] Last Admin: 03/23/18 08:21 Dose: Not Given Non-Formulary Medication (Sevelamer Carbonate [Renvela]) 1 tab PO BID [facility] Last Admin: 03/22/18 20:50 Dose: Not Given Ondansetron HCl (Zofran Inj) 4 mg IVP Q4H PRN PRN Reason: Nausea/Vomiting Pantoprazole Sodium (Protonix Ec Tab) 40 mg PO 0600 [facility] Last Admin: 03/23/18 05:23 Dose: 40 mg Tamsulosin HCl (Flomax) 0.4 mg PO DAILY [facility] Last Admin: 03/22/18 09:25 Dose: 0.4 mg Vitamin B Complex/Vit C/Folic Acid (Nephro-Tyson) 1 tab PO DAILY [facility] Last Admin: 03/22/18 09:30 Dose: 1 tab - Labs Labs: 03/23/18 09:15 03/23/18 09:15 PT 14.5 SECONDS (9.4-12.5) H 03/21/18 07:15 INR 1.26 03/21/18 07:15 APTT 28.9 Seconds (25.1-36.5) 03/21/18 07:15 - Constitutional Appears: Well, Non-toxic, No Acute Distress - Head Exam Head Exam: ATRAUMATIC, NORMOCEPHALIC - Eye Exam Eye Exam: Normal appearance Pupil Exam: NORMAL ACCOMODATION - ENT Exam ENT Exam: Mucous Membranes Moist - Extremities Exam Additional comments: Vasc: DP and PT faintly palpable, CFT <3 seconds X 10, no edema, TG warm to warm, mild edema appreciated circumfrentially to b/l lower extremities Ortho: HAV deformities noted bilaterally, MMT 5/5 bilaterally, no posterior calf pain noted Neuro: Gross sensation intact, protective sensation diminished Derm: Superficial 2 cm X 1.5 cm wound at the dorso-medial aspect of the left 1st MTPJ, fibrogranular wound base noted, no drainage noted, minimal erythema left 1st MTPJ, no malodor, no probe to bone, no tunneling or tracking, no cellulitis appreciated, no clinical signs of infection at this time Assessment and Plan - Assessment and Plan (Free Text) Assessment: 67M with L foot ulceration. Plan: Patient seen and evaluated Discussed in detail with Dr. 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 No evidence of OM Will continue to follow <Funmi Contreras - Last Filed: 03/26/18 14:15> Objective - Vital Signs/Intake and Output Vital Signs (last 24 hours): Temp Pulse Resp BP Pulse Ox 98.5 F 73 20 126/73 98 03/25/18 06:00 03/25/18 14:51 03/25/18 06:00 03/25/18 14:51 03/25/18 06:00 - Labs Labs: 03/25/18 09:00 03/25/18 09:00 PT 14.5 SECONDS (9.4-12.5) H 03/21/18 07:15 INR 1.26 03/21/18 07:15 APTT 28.9 Seconds (25.1-36.5) 03/21/18 07:15 Attending/Attestation - Attestation I have personally seen and examined this patient.: Yes I have fully participated in the care of the patient.: Yes I have reviewed all pertinent clinical information, including history, physical exam and plan: Yes
--- NOTE | 2018-03-23 13:06 | CP.PCM.PN ---
<Kurtis Harrington - Last Filed: 03/23/18 17:54> Subjective - Date & Time of Evaluation Date of Evaluation: 03/23/18 Time of Evaluation: 17:00 - Subjective Subjective: PGY-4 GI Fellow Prog Note Pt sitting up in bed when seen this PM. States he is doing well. No complaints. No signs of bleeding. 5 point ROS negative other than stated above Objective - Vital Signs/Intake and Output Vital Signs (last 24 hours): Temp Pulse Resp BP Pulse Ox 98.2 F 64 20 93/53 L 97 03/23/18 06:00 03/23/18 10:00 03/23/18 06:00 03/23/18 06:00 03/23/18 06:00 Intake and Output: 03/23/18 03/23/18 06:59 18:59 Intake Total 1080 Balance 1080 - Medications Medications: Current Medications Acetaminophen (Tylenol 325mg Tab) 650 mg PO Q6 PRN PRN Reason: TEMP>=99.5F Last Admin: 03/20/18 05:59 Dose: 650 mg Acetaminophen (Tylenol 650 Mg Supp) 650 mg RC Q6H PRN PRN Reason: TEMP>=99.5F Amiodarone HCl (Cordarone) 200 mg PO DAILY [facility] Last Admin: 03/22/18 09:24 Dose: 200 mg Aspirin (Aspirin Chewable) 81 mg PO DAILY [facility] Last Admin: 03/22/18 09:25 Dose: 81 mg Atorvastatin Calcium (Lipitor) 40 mg PO DIN [facility] Last Admin: 03/22/18 20:51 Dose: 40 mg Collagenase (Santyl) 0 gm TOP DAILY [facility] Last Admin: 03/22/18 09:27 Dose: Not Given Ferrous Sulfate (Feosol) 324 mg PO TID [facility] Last Admin: 03/22/18 17:01 Dose: 324 mg Meropenem/Sodium Chloride (Merrem Iv 500 Mg/Ns 50 Ml) 500 mg in 50 mls @ 100 mls/hr IVPB Q24H [facility]; Protocol Stop: 03/24/18 16:01 Last Admin: 03/22/18 16:53 Dose: 100 mls/hr Insulin Human Lispro (Humalog Med) 0 units SC ACHS [facility]; Protocol Last Admin: 03/23/18 08:20 Dose: Not Given Midodrine (Proamatine) 5 mg PO 0800,1200,1600 [facility] Last Admin: 03/23/18 08:21 Dose: Not Given Non-Formulary Medication (Sevelamer Carbonate [Renvela]) 1 tab PO BID [facility] Last Admin: 03/22/18 20:50 Dose: Not Given Ondansetron HCl (Zofran Inj) 4 mg IVP Q4H PRN PRN Reason: Nausea/Vomiting Pantoprazole Sodium (Protonix Ec Tab) 40 mg PO 0600 [facility] Last Admin: 03/23/18 05:23 Dose: 40 mg Tamsulosin HCl (Flomax) 0.4 mg PO DAILY [facility] Last Admin: 03/22/18 09:25 Dose: 0.4 mg Vitamin B Complex/Vit C/Folic Acid (Nephro-Tyson) 1 tab PO DAILY [facility] Last Admin: 03/22/18 09:30 Dose: 1 tab - Labs Labs: 03/23/18 09:15 03/23/18 09:15 PT 14.5 SECONDS (9.4-12.5) H 03/21/18 07:15 INR 1.26 03/21/18 07:15 APTT 28.9 Seconds (25.1-36.5) 03/21/18 07:15 - Constitutional Appears: Well, No Acute Distress, Chronically Ill - Head Exam Head Exam: ATRAUMATIC, NORMAL INSPECTION - Eye Exam Eye Exam: EOMI. absent: Scleral icterus - ENT Exam ENT Exam: Mucous Membranes Moist. absent: Mucous Membranes Dry - Respiratory Exam Respiratory Exam: NORMAL BREATHING PATTERN. absent: Accessory Muscle Use, Respiratory Distress - GI/Abdominal Exam GI & Abdominal Exam: Soft, Normal Bowel Sounds. absent: Distended, Firm, Guarding, Rigid, Tenderness, Mass, Organomegaly Assessment and Plan - Assessment and Plan (Free Text) Assessment: 67 year old male with PMH of dilated cardiomyopathy (EF 22%) s/p defibrillator, ESRD on HD MWF, HTN, Diabetes, and anemia requiring transfusion presenting with GNR bacteremia sepsis with LE infection. # Acute on Chronic Normocytic Anemia: Suspect multifactorial in nature related to Anemia of Chronic Disease, CKD and possible small bowel losses. # Possible New Cirrhosis: Evidence by prominent caudate lobe and some nodularity on US. Pt with risk factors for WOODRUFF, Cardiasc induced etc. Perihepatic ascites perhaps related to the former but also with underlying Renal disease which could also cause ascites independent of liver disease. Hepatitis panel negative. # ESBL bacteremia: Perhaps related to SBP, but ascites not significant and pt already on broad spectrum abx that would cover usual SBP pathogens. Otherwise, agree that source also likely related to urinary but pt declined straight cath for UA. Plan: - Abd Duplex: No thrombus - No signs of active GI bleed at this time - Recent bone marrow biopsy suggestive of anemia of chronic disease - Recommend outpatient capsule endoscopy for small bowel evaluation for AVMs and/or other pathology; can be referred to Dr. Sellers for capsule endoscopy - s/p 2u pRBCs 03/22/18 with appropriate Hb response. 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 Wynn; please see attestation for further recs/changes. Thank you for the consult, will sign off. Please call if questions. <Foreign Wynn V - Last Filed: 03/23/18 22:50> Objective - Vital Signs/Intake and Output Vital Signs (last 24 hours): Temp Pulse Resp BP Pulse Ox 98.8 F 76 18 111/53 L 100 03/23/18 17:46 03/23/18 17:46 03/23/18 17:46 03/23/18 17:46 03/23/18 13:21 Intake and Output: 03/23/18 03/24/18 18:59 06:59 Intake Total 50 Balance 50 - Medications Medications: Current Medications Acetaminophen (Tylenol 325mg Tab) 650 mg PO Q6 PRN PRN Reason: TEMP>=99.5F Last Admin: 03/20/18 05:59 Dose: 650 mg Acetaminophen (Tylenol 650 Mg Supp) 650 mg RC Q6H PRN PRN Reason: TEMP>=99.5F Amiodarone HCl (Cordarone) 200 mg PO DAILY [facility] Last Admin: 03/23/18 13:49 Dose: 200 mg Aspirin (Aspirin Chewable) 81 mg PO DAILY [facility] Last Admin: 03/23/18 13:49 Dose: 81 mg Atorvastatin Calcium (Lipitor) 40 mg PO DIN [facility] Last Admin: 03/23/18 17:13 Dose: 40 mg Collagenase (Santyl) 0 gm TOP DAILY [facility] Last Admin: 03/23/18 13:45 Dose: Not Given Ferrous Sulfate (Feosol) 324 mg PO TID [facility] Last Admin: 03/23/18 17:13 Dose: 324 mg Meropenem/Sodium Chloride (Merrem Iv 500 Mg/Ns 50 Ml) 500 mg in 50 mls @ 100 mls/hr IVPB Q24H [facility]; Protocol Stop: 03/24/18 16:01 Last Admin: 03/23/18 17:14 Dose: 100 mls/hr Insulin Human Lispro (Humalog Med) 0 units SC ACHS [facility]; Protocol Last Admin: 03/23/18 22:05 Dose: Not Given Midodrine (Proamatine) 5 mg PO 0800,1200,1600 [facility] Last Admin: 03/23/18 17:14 Dose: 5 mg Non-Formulary Medication (Sevelamer Carbonate [Renvela]) 1 tab PO BID [facility] Last Admin: 03/23/18 17:14 Dose: Not Given Ondansetron HCl (Zofran Inj) 4 mg IVP Q4H PRN PRN Reason: Nausea/Vomiting Pantoprazole Sodium (Protonix Ec Tab) 40 mg PO 0600 [facility] Last Admin: 03/23/18 05:23 Dose: 40 mg Tamsulosin HCl (Flomax) 0.4 mg PO DAILY [facility] Last Admin: 03/23/18 13:49 Dose: 0.4 mg Vitamin B Complex/Vit C/Folic Acid (Nephro-Tyson) 1 tab PO DAILY [facility] Last Admin: 03/23/18 13:49 Dose: 1 tab - Labs Labs: 03/23/18 09:15 03/23/18 09:15 PT 14.5 SECONDS (9.4-12.5) H 03/21/18 07:15 INR 1.26 03/21/18 07:15 APTT 28.9 Seconds (25.1-36.5) 03/21/18 07:15 Attending/Attestation - Attestation I have personally seen and examined this patient.: Yes I have fully participated in the care of the patient.: Yes I have reviewed all pertinent clinical information, including history, physical exam and plan: Yes Notes (Text): This is an addendum to GI progress report dictated by the GI Fellow.The patient was seen and examined earlier. Medical records, lab studies, imagings were rev iewed. Last 24 hours events reviewed. Agreed with the above treatment plan as outlined in GI Fellow 's notes with the addition of the following 03/23/18 22:50
--- NOTE | 2018-03-23 13:07 | PN ---
DATE: 03/23/2018 SUBJECTIVE: The patient is in dialysis. No complaints. No shortness of breath. PHYSICAL EXAMINATION: VITAL SIGNS: Stable. NECK: Negative JVD. LUNGS: Without rales. HEART: Reveals S1, S2. EXTREMITIES: Without edema. LABORATORY DATA: Pending. IMPRESSION: 1. Sepsis. 2. Dilated cardiomyopathy. 3. End-stage renal disease. 4. A vegetation noted on echo. Given these findings, we will proceed with a RASHAUN tomorrow. If it confirms a vegetation, we will opt for IV antibiotics for 6 weeks rather than high mortality and morbidity of trying to remove his ICD surgically. Kamari Watt MD
--- NOTE | 2018-03-23 13:33 | CT ---
Date of service: 03/23/2018 PROCEDURE: CT of the left foot without contrast HISTORY: LEFT BUNION WOUND COMPARISON: Plain films dated 03/17/2018 TECHNIQUE: Radiation dose: Total exam DLP = 275.17 mGy-cm. This CT exam was performed using one or more of the following dose reduction techniques: Automated exposure control, adjustment of the mA and/or kV according to patient size, and/or use of iterative reconstruction technique. FINDINGS: Severe chronic degenerative changes are seen in the midfoot with subchondral cysts and bony hypertrophic changes as well as joint space narrowing. There is a chronic appearing bone fragment adjacent to the base of the 5th metatarsal. There is no bony destruction to suggest acute osteomyelitis. Previous amputation of the 1st distal phalanx Diffuse thickening and calcification of the distal Achilles tendon. IMPRESSION: No evidence of acute osteomyelitis. See comments
[2018-03-23] MEDS: Collagenase 250 Units/gm Ointment(30 gm) TOP SCH (13:45)
[2018-03-23] MEDS: SEVELAMER CARBONATE PO SCH ×2 (13:46→17:14)
[2018-03-23] MEDS: Multivitamin Vitamin B Complex (Nephro-Vite) Tab PO SCH (13:49)
--- NOTE | 2018-03-23 14:13 | PN ---
DATE: 03/23/2018 SUBJECTIVE: The patient is currently seen at the completion of dialysis, 2.5 liters of fluid were removed during his 4-hour treatment. The patient has been doing relatively well. The patient has had discussions with Infectious Disease. It is possible and more than likely that he might have an infection of the AICD wire. The patient will likely require a prolonged course of antibiotics, perhaps 4 to 6 weeks. The patient is negotiating with Infectious Disease regarding the type of antibiotic, the frequency of administration, the possibility of having a PICC line, etc. Hemoglobin today was stable at 9.8. MEDICATIONS: Medication list reviewed. The patient is on aspirin, amiodarone, Feosol, Flomax, insulin, Lipitor, meropenem, Nephro-Tyson, ProAmatine, Protonix, Santyl, Renvela, Tylenol p.r.n. and Zofran p.r.n. OBJECTIVE: INTAKE/OUTPUT: Intake is 1130, output is not charted. VITAL SIGNS: Blood pressure is 93/53 at the end of dialysis. Pulse 64, temperature 98.2 with respiratory rate of 20. HEENT: Normocephalic, atraumatic. Conjunctiva pale. Sclerae nonicteric. NECK: Supple. No neck vein distention. CHEST: Clear to auscultation and percussion. No rales, rhonchi or wheezing. CARDIOVASCULAR: Regular rate and rhythm with /MR/TR/PI. No S3, no S4, no rub. Positive AICD. ABDOMEN: Soft. Bowel sounds normal. No rebound, guarding, or masses. EXTREMITIES: No lower extremity cyanosis, clubbing or edema. Has a dressing over his left foot. There is no drainage and no odor. Left upper extremity AV fistula. LABORATORY DATA AND IMAGING: CBC, white blood cell count today is 10.3 with a hemoglobin of 9.8 and a platelet count of 172,000. Chemistry showed normal electrolytes, BUN 65 with a creatinine of 8. Calcium is 8 with a phosphorus of 5.4, albumin level is 3.2, corrected calcium is normal. Microbiology, blood cultures are positive for E. coli, ESBL, and the left foot cultures are positive for coag-negative staph. ASSESSMENT: 1. Left foot infection. This is being treated appropriately by Dr. Contreras. The patient remains on antibiotic therapy. No evidence for osteomyelitis. The patient continues to receive local wound care. 2. Possible infected automatic implantable cardioverter-defibrillator wire. The patient will likely require a 4-to 6-week course of antibiotic therapy. As per my discussion above, the patient is discussing with Infectious Disease the logistics of having this done in an outpatient setting. 3. History of end-stage renal disease. Continue Wednesday, Wednesday, Wednesday dialysis. 4. History of hypertension with cardiomyopathy. The patient is borderline hypotensive. He is on no blood pressure medication. He continues ProAmatine for blood pressures support. Echocardiogram showed an ejection fraction of 30% with possible vegetation on the automatic implantable cardioverter defibrillator wire. Positive mitral regurgitation, mild aortic stenosis, mild pulmonic insufficiency, moderate tricuspid regurgitation. 5. History of severe anemia. The patient is status post 5 units of packed red blood cells. Hemoglobin is stable on the 9 to 10 range. The patient might have had an episode of gastrointestinal bleeding during the hospitalization, but this appears to have resolved. 6. History of secondary hyperparathyroidism. Phosphorus level is 5.4. The patient will continue renal diet and binder therapy. 7. History of an elevated prostate-specific antigen level. Urology evaluation is pending. PLAN: 1. From a renal standpoint, continue 3 times a week dialysis. 2. Continue antibiotic therapy for his left foot infection and possible vegetation on the AICD wire. 3. Appreciate Podiatry followup. 4. GI followup for his one episode of guaiac-positive stools and dark stools 48 hours ago. 5. We will work with you regarding outpatient antibiotic therapy if we cannot give any of these antibiotics in the outpatient dialysis unit. Chidi Ramirez MD
--- NOTE | 2018-03-23 15:32 | PN ---
DATE: 03/23/2018 SUBJECTIVE: The patient is getting hemodialysis at present. The patient was later followed up on 2R also. The patient's overnight nurse's notes were reviewed. No adverse events documented. PHYSICAL EXAMINATION: VITAL SIGNS: T-max 98.2; telemetry shows sinus rhythm, heart rate 66, 74 and 82; blood pressure 114/76 and 93/53; respirations 20 and O2 sat 97%. GENERAL: The patient is seen lying in the stretcher in bed. HEENT: Head examination normocephalic and atraumatic. HEENT examination shows pinkish pale conjunctivae. Anicteric sclerae. No oropharyngeal lesion. No neck rigidity. CHEST: Kyphosis. Positive left upper chest AIC pacemaker noted. LUNGS: Shows no audible crackle, rales or wheezing. CARDIOVASCULAR: S1 and S2, regular rhythm. Positive systolic murmur left sternal border, right second intercostal space, left second intercostal space. ABDOMEN: Soft. Positive bowel sounds. No palpable hepatosplenomegaly noted. GENITALIA: Male. RECTAL: Deferred. EXTREMITIES: Lower extremity shows positive left foot dressing and diabetic ulceration of the left foot toe. Trace swelling noted of the lower extremity. Positive left upper extremity AV fistula noted. Positive dialysis catheter noted. Motor strength is 5/5 in upper and lower extremity. Positive upper extremity hand and contractures noted. Gait examination is not tested, but the patient ambulates with Rollator. LABORATORY DATA: Fingerstick blood sugar 116, 146, 129, 139 and 100. Diagnostics March 23, 2018 WBC 10.3, hemoglobin/hematocrit 9.8/29.8 and platelets 172. Sodium 37, potassium 4.1, chloride 99, CO2 of 27, BUN 65, creatinine 8, glucose 109, calcium 8, phosphorus 5.4, magnesium 2.2 and alk phos 133. IMPRESSION: 1. Extended-spectrum beta-lactamase Escherichia coli bacteremia and sepsis. 2. 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 3. Left foot toe coagulase-negative Staphylococcus aureus diabetic foot ulceration. 4. End-stage renal disease, hemodialysis dependent three times a week via the left upper extremity arteriovenous fistula. 5. Transfusion dependent and transfusion requiring anemia of chronic disease. 6. Status post packed red blood cell transfusion x5. 7. Gait dysfunction. 8. Deconditioning. 9. Nonischemic dilated cardiomyopathy. 10. Valvular heart disease. 11. Status post IV dobutamine treatment. 12. Secondary hyperparathyroidism with hyperphosphatemia. 13. Anemia. 14. Left foot ulceration. 15. Questionable gastrointestinal bleeding with fecal occult blood positive. 16. Hypotension. 17. Status post automatic implantable cardioverter-defibrillator pacemaker implant. 18. Bacteremia and sepsis. PLAN: At this time, the patient is to complete his hemodialysis today. The patient was seen by Infectious Disease yesterday. The recommendation is 4 to 6 weeks of IV antibiotic plus/minus removal of the AICD pacemaker device if cleared by Cardiology. In any case the patient will require at least 4 to 6 weeks of IV antibiotics. For long-term IV antibiotic, the patient most likely will need a PICC line placement for long-term IV antibiotic and rehab placement. At present, the patient will be continued on IV antibiotics which is meropenem 500 mg IV daily, the patient is on amiodarone 200 mg daily, the patient is on GI prophylaxis and non-pharmacological DVT prophylaxis. The patient has been ordered physical therapy, occupational therapy, ambulation therapy and gait training. The patient has been explained about the details of his medical condition, diagnosis, treatment plan, treatment options, medical details discussed and explained to the patient at length and all questions concerned answered to his satisfaction. Dictated and electronically signed, not read. Geoffrey Thacker MD
[2018-03-23] MEDS: MEROPENEM 500 MG in NS 500 MG/50 ML BAG IVPB SCH (17:14)
--- NOTE | 2018-03-24 01:33 | PN ---
DATE: 03/23/2017 SUBJECTIVE: The patient is in bed in no acute distress, nontoxic. PHYSICAL EXAMINATION: VITAL SIGNS: Temperature is 98, blood pressure is 111/50, respiratory rate of 18. HEENT: Unremarkable. NECK: Supple. CARDIOPULMONARY: Normal S1, S2. LUNGS: Have decreased breath sounds. ABDOMEN: Soft. LABORATORY DATA: Reveals a white count of 10,000, hemoglobin of 9, creatinine is 8. Serology is negative and blood cultures are positive for ESBL E. Coli. Repeat blood cultures are negative from the . Dr. Kamari Watt note is reviewed. ASSESSMENT AND PLAN: This is a 67-year-old with sepsis and extended-spectrum beta-lactamases Escherichia coli bacteremia, positive echo and possible endocarditis. I had a long discussion with him, consider approach probably approach with this patient, also pacemaker is infected. Antibiotics will not be able to clear this infection. The bacteremia will recur after the antibiotics are discontinued. However, if not infected, we will check on the transesophageal echo. Case was discussed with Dr. Martins who read the echo. Charlie Taylor MD
[2018-03-24] MEDS: Pantoprazole 40 mg EC Tab PO SCH (05:08)
[2018-03-24 07:17] LABS: BASO # 0.03 K/mm3 (0.0-2.0); BASO % 0.3 % (0.0-3.0); EOS # 0.4 (0.0-0.7); EOS % 3.4 % (1.5-5.0); GRAN # 8.88 (1.4-6.5); GRAN % 82.9 % (50.0-68.0); HEMOGLOBIN 9.7 g/dL (14.0-18.0); LYMPH % 9.3 % (22.0-35.0); MEAN CELL VOLUME 92.7 fl (80.0-105.0); MEAN CORPUSCULAR HEMOGLOBIN 29.3 pg (25.0-35.0); MEAN CORPUSCULAR HGB CONC 31.6 g/dl (31.0-37.0); MEAN PLATELET VOLUME 9.6 fl (7.0-11.0); MONO # 0.4 (0.1-0.6); MONO % 4.1 % (1.0-6.0); RBC 3.31 10^6/uL (3.5-6.1); RED CELL DISTRIBUTION WIDTH 16.7 % (11.5-14.5); WHITE BLOOD COUNT 10.7 10^3/uL (4.5-11.0)
[2018-03-24 07:35] LABS: ALB/GLOB RATIO 0.9 (1.1-1.8); ALBUMIN 3.2 g/dL (3.0-4.8); CALCIUM 7.8 mg/dL (8.4-10.5)
--- NOTE | 2018-03-24 09:40 | CP.PCM.PN ---
<Ellie Trejo - Last Filed: 03/24/18 09:40> Subjective - Date & Time of Evaluation Date of Evaluation: 03/24/18 Time of Evaluation: 09:38 - Subjective Subjective: Podiatry progress note for Dr. Contreras 67M seen and evaluated at bedside. Patient sitting up in chair comfortably. States he feels much better. States contact precautions are for his wound. Denies pain or discomfort in left foot. Denies N/V/F/C and has no other acute complaints. Objective - Vital Signs/Intake and Output Vital Signs (last 24 hours): Temp Pulse Resp BP Pulse Ox 98 F 76 20 119/69 99 03/24/18 06:00 03/24/18 06:00 03/24/18 06:00 03/24/18 06:00 03/24/18 06:00 - Medications Medications: Current Medications Acetaminophen (Tylenol 325mg Tab) 650 mg PO Q6 PRN PRN Reason: TEMP>=99.5F Last Admin: 03/20/18 05:59 Dose: 650 mg Acetaminophen (Tylenol 650 Mg Supp) 650 mg RC Q6H PRN PRN Reason: TEMP>=99.5F Amiodarone HCl (Cordarone) 200 mg PO DAILY [facility] Last Admin: 03/23/18 13:49 Dose: 200 mg Aspirin (Aspirin Chewable) 81 mg PO DAILY [facility] Last Admin: 03/23/18 13:49 Dose: 81 mg Atorvastatin Calcium (Lipitor) 40 mg PO DIN [facility] Last Admin: 03/23/18 17:13 Dose: 40 mg Collagenase (Santyl) 0 gm TOP DAILY [facility] Last Admin: 03/23/18 13:45 Dose: Not Given Ferrous Sulfate (Feosol) 324 mg PO TID [facility] Last Admin: 03/23/18 17:13 Dose: 324 mg Meropenem/Sodium Chloride (Merrem Iv 500 Mg/Ns 50 Ml) 500 mg in 50 mls @ 100 mls/hr IVPB Q24H [facility]; Protocol Stop: 03/24/18 16:01 Last Admin: 03/23/18 17:14 Dose: 100 mls/hr Insulin Human Lispro (Humalog Med) 0 units SC ACHS [facility]; Protocol Last Admin: 03/23/18 22:05 Dose: Not Given Midodrine (Proamatine) 5 mg PO 0800,1200,1600 [facility] Last Admin: 03/24/18 08:38 Dose: 5 mg Non-Formulary Medication (Sevelamer Carbonate [Renvela]) 1 tab PO BID [facility] Last Admin: 03/23/18 17:14 Dose: Not Given Ondansetron HCl (Zofran Inj) 4 mg IVP Q4H PRN PRN Reason: Nausea/Vomiting Pantoprazole Sodium (Protonix Ec Tab) 40 mg PO 0600 [facility] Last Admin: 03/24/18 05:08 Dose: 40 mg Tamsulosin HCl (Flomax) 0.4 mg PO DAILY [facility] Last Admin: 03/23/18 13:49 Dose: 0.4 mg Vitamin B Complex/Vit C/Folic Acid (Nephro-Tyson) 1 tab PO DAILY [facility] Last Admin: 03/23/18 13:49 Dose: 1 tab - Labs Labs: 03/24/18 06:45 03/24/18 06:45 PT 14.5 SECONDS (9.4-12.5) H 03/21/18 07:15 INR 1.26 03/21/18 07:15 APTT 28.9 Seconds (25.1-36.5) 03/21/18 07:15 - Constitutional Appears: Well, Non-toxic, No Acute Distress - Head Exam Head Exam: ATRAUMATIC, NORMOCEPHALIC - Eye Exam Eye Exam: Normal appearance Pupil Exam: NORMAL ACCOMODATION - ENT Exam ENT Exam: Mucous Membranes Moist - Respiratory Exam Respiratory Exam: Clear to Ausculation Bilateral, NORMAL BREATHING PATTERN - Cardiovascular Exam Cardiovascular Exam: REGULAR RHYTHM - Extremities Exam Additional comments: Vasc: DP and PT faintly palpable, CFT <3 seconds X 10, no edema, TG warm to warm, mild edema appreciated circumfrentially to b/l lower extremities Ortho: HAV deformities noted bilaterally, MMT 5/5 bilaterally, no posterior calf pain noted Neuro: Gross sensation intact, protective sensation diminished Derm: Superficial 2 cm X 1.5 cm wound at the dorso-medial aspect of the left 1st MTPJ, fibrogranular wound base noted, no drainage noted, no erythema left 1st MTPJ, no malodor, no probe to bone, no tunneling or tracking, no clinical signs of infection at this time Assessment and Plan - Assessment and Plan (Free Text) Assessment: 67M with L foot ulceration. Plan: Patient seen and evaluated Discussed in detail with Dr. 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 No evidence of OM Will continue to follow <Funmi Contreras - Last Filed: 03/26/18 14:13> Objective - Vital Signs/Intake and Output Vital Signs (last 24 hours): Temp Pulse Resp BP Pulse Ox 98.5 F 73 20 126/73 98 03/25/18 06:00 03/25/18 14:51 03/25/18 06:00 03/25/18 14:51 03/25/18 06:00 - Labs Labs: 03/25/18 09:00 03/25/18 09:00 PT 14.5 SECONDS (9.4-12.5) H 03/21/18 07:15 INR 1.26 03/21/18 07:15 APTT 28.9 Seconds (25.1-36.5) 03/21/18 07:15 Attending/Attestation - Attestation I have personally seen and examined this patient.: Yes I have fully participated in the care of the patient.: Yes I have reviewed all pertinent clinical information, including history, physical exam and plan: Yes
[2018-03-24] MEDS ORDERED: Flumazenil 0.1 mg/ml Inj (5ml) IVP ONE (11:55)
[2018-03-24] MEDS ORDERED: Midazolam 2 MG/2 ML VIAL ONE (11:55)
[2018-03-24] MEDS ORDERED: Naloxone 0.4 mg/ml Inj (Adult) ONE (11:55)
[2018-03-24] MEDS ORDERED: Midazolam 2 MG/2 ML VIAL IV ONE ×2 (12:05→12:08)
--- NOTE | 2018-03-24 12:42 | PN ---
DATE: 03/24/2018 CARDIOLOGY FOLLOWUP SUBJECTIVE: The patient is in no distress. OBJECTIVE: VITAL SIGNS: Blood pressure 119/69, heart rates in the 70s. The patient is afebrile. Physical exam is unchanged. LABORATORY DATA: Hemoglobin is 9.7. Chemistries, potassium is 3.8. IMPRESSION AND PLAN: The patient is for transesophageal echocardiogram today. His sepsis and abnormal echo findings need to be reviewed with transesophageal echocardiogram. Patient is dilated cardiomyopathy and end-stage renal disease remained stable at this time. Kamari Watt MD
[2018-03-24] MEDS ORDERED: Sodium Chloride 0.9% 1,000 ML IV SCH (12:45)
--- NOTE | 2018-03-24 13:11 | PN ---
DATE: 03/24/2018 SUBJECTIVE: The patient is currently seen sitting at the side of his bed. He is leaving for a RASHAUN to further assess the infection of the AICD wire. Discussed with Infectious Disease. The patient perhaps might need removal of the AICD with replacement. It is unlikely that we could sterilize the wire with antibiotic therapy even if it is given for 4 to 6 weeks. The patient had an uneventful dialysis yesterday with removal of 2.5 liters of fluid. MEDICATIONS: Medication list reviewed. The patient is on aspirin, Cordarone, Feosol, Flomax, insulin, Lipitor, meropenem, Nephro-Tyson, ProAmatine, Protonix, Santyl, Renvela, Tylenol and Zofran. OBJECTIVE: INTAKE/OUTPUT: Intake is 1130, output is 2500 mL with dialysis. VITAL SIGNS: Blood pressure is 119/69, temperature 98, respiratory rate 20 with a pulse of 76. HEENT: Normocephalic, atraumatic. Conjunctivae remain pale. Sclerae are nonicteric. NECK: Supple. No neck vein distention. CHEST: Clear to auscultation and percussion. No rales, rhonchi or wheezing. CARDIOVASCULAR: Shows a regular rate and rhythm with /MR/TR/PI. No S3, no S4, no rub. Positive AICD. ABDOMEN: Soft. Bowel sounds normal. No rebound, guarding or masses. EXTREMITIES: Show no lower extremity cyanosis, clubbing or edema. He has a healing wound over his left foot big toe area. No drainage or odor. He has an intact left upper extremity AV fistula. LABORATORY DATA AND IMAGING: CBC, white blood cell count today 10.7, hemoglobin 9.7, platelet count of 178,000. Chemistries today are unremarkable electrolytes. BUN 48 with creatinine of 5.9. Glucose 111. Calcium 7.8, phosphorus excellent at 4.3 on binder therapy. Magnesium 2.0. Microbiology, wound cultures are positive for coag-negative staph. Blood cultures were positive for ESBL E. Coli. ASSESSMENT: 1. Left foot infection being treated appropriately by Dr. Contreras. The patient remains on antibiotic therapy. No evidence of osteomyelitis. He continues to receive local wound care and his infection appears to be healing. 2. Possible infection of the wire of the automatic implantable cardioverter defibrillator. The patient will be going down for a transesophageal echocardiogram today. As per my discussion with Infectious Disease, it is unlikely that 4 to 6 weeks of antibiotics will sterilize the wire and this will likely reoccur post and discontinuation of antibiotics. The patient might need to have automatic implantable cardioverter defibrillator replaced. 3. History of end-stage renal disease. Continue Wednesday, Wednesday, Wednesday dialysis. 4. History of hypertension with cardiomyopathy, ejection fraction 30% with valvular heart disease as noted above. 5. History of severe anemia. The patient is status post a total of 5 units of packed red blood cells during present hospitalization. Hemoglobin appears to be stable and holding in the 9-10 range. There was some question of some possible GI bleeding during the early part of the hospitalization. This has resolved. 6. History of secondary hyperparathyroidism. Phosphorus level on renal diet and on binder therapy down to 4.3. 7. History of elevated PSA. Urology evaluation is pending. PLAN: 1. Continue three times a week dialysis. Next dialysis scheduled for 03/25/2018. 2. Local wound care and follow up on a diet sheet. 3. The patient scheduled for a RASHAUN later this morning. Further management of his AICD wire infection pending this echocardiogram. 4. Continue to follow labs closely. CBC appears to be normal range for the patient. At present, no further evidence for GI bleeding. 5. Continue antibiotic therapy under the guidance of ID. Chidi Ramirez MD
--- NOTE | 2018-03-24 13:27 | PN ---
DATE: 03/24/2018 SUBJECTIVE: The patient is in room 568, bed one. The patient's overnight nurse's notes were reviewed. There was no adverse events documented and no adverse events notified. OBJECTIVE: VITAL SIGNS: T-max 98.8, pulse 76, blood pressure 111/53, respiration 18, O2 sat 100%. HEENT: Head: Normocephalic, atraumatic. HEENT shows pinkish pale conjunctivae. CHEST: Kyphosis. Positive left upper chest AICD noted. LUNGS: Decreased breath sound at the bases, left more than the right. CARDIOVASCULAR: S1, S2, regular rhythm. Positive systolic murmur left sternal border, right second intercostal space, left second intercostal space. ABDOMEN: Soft. Positive bowel sound. No palpable organomegaly. EXTREMITIES: Positive contractures of the upper extremity bilateral noted. Extremity shows positive left foot dressing. extremity. Gait examination is not tested, it is positive for upper extremity AV fistula, positive thrill noted. MUSCULOSKELETAL: As per the body mass index. NEUROLOGIC: The patient's neuro examination is limited as the patient is lying in the bed. Cranial nerves II-XII limited. DIAGNOSTICS: 03/24/2017, WBC 10.7, hemoglobin/hematocrit 9.7, 30.7, platelet 168, granulocytes 83% segs. Sodium 136, potassium 3.8, chloride 98, CO2 of 29, BUN 48, creatinine 5.9, glucose 111, calcium 7.8, phosphorus 4.3, magnesium 2.0, alk phos 144. The patient had a CT scan of the left foot which shows degenerative joint disease of the mid and forefoot with at least tendon calcification and degenerative joint disease noted. No osteomyelitis noted. IMPRESSION AND PLAN: 1. Extended-spectrum beta-lactamase Escherichia coli bacteremia and sepsis. Source, possible and questionable endocarditis with pacemaker implantable cardioverter defibrillator ventilation. 2. Coagulase-negative left foot diabetic ulceration and infection. 3. 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 4. Normocytic anemia of chronic disease, transfusion dependent and transfusion requiring. 5. Status post leukocytosis. 6. Granulocytosis. 7. End-stage renal disease, hemodialysis dependent three times a week via the left upper extremity arteriovenous fistula. 8. Dilated nonischemic cardiomyopathy. 9. Valvular heart disease. 10. Hypotension. 11. Status post high-grade fever. 12. Upper extremity contractures. 13. Gait dysfunction. 14. Deconditioning. 15. Anemia of chronic disease. 16. Questionable gastrointestinal bleed with fecal occult blood positive. 17. Diarrhea (resolved). 18. History of noncompliance and history of signing out against medical advice. The patient was seen and evaluated by Cardiology and Infectious Disease. The patient was explained about all the treatment options. The patient was explained about his diagnosis, test results at length in layman's language. The patient was advised by Cardiology about high risk and high morbidity and mortality associated with removal of the AICD device. Cardiology recommends transesophageal echo which has to be scheduled by Cardiology for confirmation of vegetations on the pacemaker ICD lead and also on the heart valves. Infectious disease recommend at least 6 weeks of IV antibiotic at present. The patient was though explained about this by me and by the Infectious Disease that the long-term IV antibiotics may treat the infection but there is a possibility that the patient may get a recurrence since the AICD still in place. The patient was explained about the risk and consequences and high risk and high morbidity mortality associated with removal of the ICD by Dr. Kamari Watt, which he acknowledged and understand. At present, the patient is awaiting for a transesophageal echo. The patient will be continued on broad-spectrum IV antibiotic as per Infectious Disease. The patient will be continued on non-pharmacological DVT prophylaxis, GI prophylaxis. The patient will be followed up by Infectious Disease, Cardiology, Podiatry, Nephrology. The patient will continue physical therapy, occupational therapy, ambulation therapy, gait training. Once the patient is cleared by all subspecialties, patient will be discharged to rehab for continuation of the long-term IV antibiotics. I have spoken and discussed the patient's condition, diagnosis, test results, all details were discussed with the patient's after the patient's admission. We have called the patient's and I have spoken to the patient's at length and all questions concerned answered to her satisfaction. At present, the patient is awaiting transesophageal echo. Depending upon the results of the transesophageal echo and after patient is cleared by all subspecialty, the patient will be considered for discharge to rehab. Dictated and electronically signed, not read. Geoffrey Thacker MD [facility] # [id number]
[2018-03-24] MEDS: Multivitamin Vitamin B Complex (Nephro-Vite) Tab PO SCH (14:49)
[2018-03-24] MEDS: Collagenase 250 Units/gm Ointment(30 gm) TOP SCH (14:50)
[2018-03-24] MEDS: Insulin Lispro (humaLOG) MEDIUM Coverage SC SCH ×3 (14:50→22:00)
[2018-03-24] MEDS: SEVELAMER CARBONATE PO SCH ×2 (14:50→19:49)
[2018-03-24] MEDS: MEROPENEM 500 MG in NS 500 MG/50 ML BAG IVPB SCH (18:10)
--- NOTE | 2018-03-24 18:32 | CARD ---
APPROVED REPORT Date of service: 03/24/2018 Reason For Test : Rule out endocarditis. PROCEDURE After obtaining informed consent, patient underwent transesophageal echo in the Echo Lab. Type of Sedation : Conscious Sedation Sedation was administered by Dr. parker. Sedation was achieved with Versed and fentanyl 2 mg and 50 mcg intravenously. Transesophageal probe was inserted and advanced into esophagus without difficulty. Echo enhancement indication: R/O Septal defect. The RASHAUN was performed without complications. Throughout the procedure, the blood pressure, pulse oximetry, cardiac rhythm, and rate were monitored. The patient tolerated the procedure without adverse effects. Recovery from conscious sedation was uneventful and vital signs were stable. LEFT VENTRICLE The left ventricle is normal size. There is mild concentric left ventricular hypertrophy. Left ventricle systolic function is moderately impaired.EF-25-30% There is Moderate global hypokinesis of the left ventricle. No left ventricle thrombus noted on this study. There is no ventricular septal defect visualized. There is no left ventricular aneurysm. There is no mass noted in the left ventricle. RIGHT VENTRICLE The right ventricle is moderately dilated. There is normal right ventricular wall thickness. Systolic function is moderately reduced. There is a pacemaker lead in the right ventricle. ATRIA The left atrium is mildly dilated. The right atrium is mildly dilated. There is a catheter/pacemaker lead seen in the right atrium. The interatrial septum is intact with no evidence for an atrial septal defect. AORTIC VALVE The aortic valve is mildly thickened. There is trace to mild aortic regurgitation. ( eccentric Jet) There is no aortic valvular stenosis. There is no aortic valvular vegetation. MITRAL VALVE The mitral valve leaflets are thickened. There is no evidence of mitral valve prolapse. There is no mitral valve stenosis. Mitral regurgitation is mild to moderate. TRICUSPID VALVE The tricuspid valve leaflets display thickening. There is mild to moderate tricuspid regurgitation. There is no tricuspid valve prolapse or vegetation. There is no tricuspid valve stenosis. PULMONIC VALVE The pulmonic valve is mildly thickened. There is mild to moderate pulmonic valvular regurgitation. There is no pulmonic valvular stenosis. GREAT VESSELS The aortic root is normal in size. The ascending aorta is normal in size. The pulmonary artery is normal. The IVC is normal in size and collapses >50% with inspiration. PERICARDIAL EFFUSION There is no pericardial effusion. There is no pleural effusion. <Conclusion> Left ventricle systolic function is moderately impaired.EF-25-30% There is trace to mild aortic regurgitation. ( eccentric Jet) Mitral regurgitation is mild to moderate. There is mild to moderate tricuspid regurgitation. There is mild to moderate pulmonic valvular regurgitation. There is no pericardial effusion. There is no pleural effusion. Velocity in MAGALY >0.4 m/s Mild flat Plaque in descending aorta. Echogenic Mobile threads like structures attached to AICD going from RA to RV, could be fibrin threads ( thrombus) VS Vegetation, corelate clinically. No Vegetation noted on Valves. CC; Drs. Thacker / Shukri.
--- NOTE | 2018-03-24 23:38 | PN ---
DATE: 03/24/2018 SUBJECTIVE: The patient is in bed, in no acute distress, nontoxic. PHYSICAL EXAMINATION: VITAL SIGNS: Temperature is 98, blood pressure is 150/80, respiratory rate of 20, heart rate of 88. HEENT: Unremarkable. NECK: Supple. LUNGS: Decreased breath sounds. HEART: Normal S1, S2. ABDOMEN: Soft. LABORATORY DATA: Reveals white count of 10,000, hemoglobin of 9. BUN of 48, creatinine of 5.9. Blood cultures, ESBL. The patient had a transesophageal echo today. Echogenic mobile thread-like structures were attached to the AICD. No vegetations on the valve. Could be a vegetation on the lead. ASSESSMENT AND PLAN: This is a 67-year-old male seen earlier this morning with sepsis with extended-spectrum beta-lactamase Escherichia coli bacteremia with endocarditis with permanent pacemaker infection. I doubt that this can be cleared with antibiotics alone, however, given the high-risk mortality as per Dr. Kamari Watt's note, we will treat conservatively at first with 4 to 6 weeks of meropenem. After stopping the antibiotics if infection recurs, about removing the pacemaker. We will try to conservatively approach first. The patient's meropenem has been discontinued by pharmacy. We will restart meropenem 250 mg IV every 12 hours. We will treat at least 28 days with weekly CBC, SMA-18, sedimentation rate, C-reactive protein. Case discussed with the patient at length. Understands the risks and benefits of all with the conservative approach. Charlie Taylor MD
[2018-03-25] MEDS: Pantoprazole 40 mg EC Tab PO SCH (05:15)
[2018-03-25] MEDS: Insulin Lispro (humaLOG) MEDIUM Coverage SC SCH ×2 (07:52→11:13)
[2018-03-25 09:22] LABS: ALB/GLOB RATIO 0.9 (1.1-1.8); ALBUMIN 3.4 g/dL (3.0-4.8); CALCIUM 8.1 mg/dL (8.4-10.5)
[2018-03-25 09:25] LABS: MEAN CORPUSCULAR HEMOGLOBIN 30.4 pg (25.0-35.0); MEAN CORPUSCULAR HGB CONC 32.7 g/dl (31.0-37.0); MEAN PLATELET VOLUME 9.8 fl (7.0-11.0); RBC 3.29 10^6/uL (3.5-6.1); RED CELL DISTRIBUTION WIDTH 16.4 % (11.5-14.5); WHITE BLOOD COUNT 12.3 10^3/uL (4.5-11.0)
[2018-03-25 10:00] VITALS: RESP 20; TEMP 98.5; O2SAT 98
--- NOTE | 2018-03-25 12:17 | PN ---
DATE: 03/25/2018 SUBJECTIVE: The patient is without symptoms. PHYSICAL EXAMINATION: VITAL SIGNS: Blood pressure is 90/52, the heart rate is in the 60s. NECK: Negative JVD. LUNGS: Without rales. HEART: S1, S2. EXTREMITIES: Without change. LABORATORY DATA: Potassium is 4.1, hemoglobin is 10. IMPRESSION: 1. 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 2. End-stage renal disease. 3. Hypercholesterolemia. 4. Diabetes mellitus. 5. Dilated cardiomyopathy. PLAN: Given these findings, after assessing the risks, benefits of invasive procedures for removing his defibrillator with a compromised ventricle and end-stage renal disease, we will try to give 6 weeks of IV antibiotics and reassess the infection. We will need to follow the patient carefully while he is on antibiotics. Kamari Watt MD
--- NOTE | 2018-03-25 13:37 | CP.PCM.PN ---
Subjective - Date & Time of Evaluation Date of Evaluation: 03/25/18 Time of Evaluation: 08:00 - Subjective Subjective: For dialysis today, no fevers, no chest pain, no SOB at rest. Objective - Vital Signs/Intake and Output Vital Signs (last 24 hours): Temp Pulse Resp BP Pulse Ox 98.5 F 68 20 90/52 L 98 03/25/18 06:00 03/25/18 06:00 03/25/18 06:00 03/25/18 06:00 03/25/18 06:00 Intake and Output: 03/25/18 03/25/18 06:59 18:59 Intake Total 620 Balance 620 - Medications Medications: Current Medications Acetaminophen (Tylenol 325mg Tab) 650 mg PO Q6 PRN PRN Reason: TEMP>=99.5F Last Admin: 03/20/18 05:59 Dose: 650 mg Acetaminophen (Tylenol 650 Mg Supp) 650 mg RC Q6H PRN PRN Reason: TEMP>=99.5F Amiodarone HCl (Cordarone) 200 mg PO DAILY [facility] Last Admin: 03/24/18 09:55 Dose: 200 mg Aspirin (Aspirin Chewable) 81 mg PO DAILY [facility] Last Admin: 03/24/18 14:48 Dose: 81 mg Atorvastatin Calcium (Lipitor) 40 mg PO DIN [facility] Last Admin: 03/24/18 18:08 Dose: 40 mg Collagenase (Santyl) 0 gm TOP DAILY [facility] Last Admin: 03/24/18 14:50 Dose: Not Given Ferrous Sulfate (Feosol) 324 mg PO TID [facility] Last Admin: 03/24/18 18:08 Dose: 324 mg Meropenem 250 mg/ Sodium (Chloride) 100 mls @ 100 mls/hr IVPB Q12H [facility]; Protocol Stop: 04/21/18 19:16 Last Admin: 03/25/18 07:15 Dose: 100 mls/hr Insulin Human Lispro (Humalog Med) 0 units SC ACHS [facility]; Protocol Last Admin: 03/24/18 22:00 Dose: Not Given Midodrine (Proamatine) 5 mg PO 0800,1200,1600 [facility] Last Admin: 03/24/18 18:12 Dose: 5 mg Non-Formulary Medication (Sevelamer Carbonate [Renvela]) 1 tab PO BID [facility] Last Admin: 03/24/18 19:49 Dose: Not Given Ondansetron HCl (Zofran Inj) 4 mg IVP Q4H PRN PRN Reason: Nausea/Vomiting Pantoprazole Sodium (Protonix Ec Tab) 40 mg PO 0600 [facility] Last Admin: 03/25/18 05:15 Dose: 40 mg Tamsulosin HCl (Flomax) 0.4 mg PO DAILY [facility] Last Admin: 03/24/18 14:49 Dose: 0.4 mg Vitamin B Complex/Vit C/Folic Acid (Nephro-Tyson) 1 tab PO DAILY [facility] Last Admin: 03/24/18 14:49 Dose: 1 tab - Labs Labs: 03/25/18 09:00 03/25/18 09:00 PT 14.5 SECONDS (9.4-12.5) H 03/21/18 07:15 INR 1.26 03/21/18 07:15 APTT 28.9 Seconds (25.1-36.5) 03/21/18 07:15 - Constitutional Appears: Chronically Ill - Head Exam Head Exam: NORMAL INSPECTION - Neck Exam Neck Exam: absent: Meningismus - Respiratory Exam Respiratory Exam: Decreased Breath Sounds - Cardiovascular Exam Cardiovascular Exam: +S1, +S2 - GI/Abdominal Exam GI & Abdominal Exam: Soft. absent: Tenderness Assessment and Plan - Assessment and Plan (Free Text) Plan: Assessment Sepsis due to ESBL E. coli bacteremia, R/O pacemaker infection (mobile structures seen on leads on RASHAUN, possible vegetations) history of infected right foot ulcers with Serratia chronic CHF chronic renal failure on dialysis DM morbid obesity with BMI 40 obstructive sleep apnea on CPAP sciatica HTN S/P left foot debridement (2015) Plan continue Merrem for at least 4-6 weeks - would be conservative for now and would recommend to repeat blood cx after the course of antibiotics (about 2-3 days after the last dose of antibiotics) and if the blood cx become positive again, the patient may need to have the pacemaker/leads removed will continue to monitor clinically
--- NOTE | 2018-03-25 13:45 | CP.PCM.PN ---
Subjective - Date & Time of Evaluation Date of Evaluation: 03/25/18 Time of Evaluation: 13:41 - Subjective Subjective: Medicine Progress Note for Dr. Thacker Patient seen and examined at bedside. No acute overnight events. Patient denies CP, SOB, n/v/d, abdominal pain, fever, chills, DA SILVA, or dizziness. Objective - Vital Signs/Intake and Output Vital Signs (last 24 hours): Temp Pulse Resp BP Pulse Ox 98.5 F 68 20 90/52 L 98 03/25/18 06:00 03/25/18 06:00 03/25/18 06:00 03/25/18 06:00 03/25/18 06:00 Intake and Output: 03/25/18 03/25/18 06:59 18:59 Intake Total 620 Balance 620 - Medications Medications: Current Medications Acetaminophen (Tylenol 325mg Tab) 650 mg PO Q6 PRN PRN Reason: TEMP>=99.5F Last Admin: 03/20/18 05:59 Dose: 650 mg Acetaminophen (Tylenol 650 Mg Supp) 650 mg RC Q6H PRN PRN Reason: TEMP>=99.5F Amiodarone HCl (Cordarone) 200 mg PO DAILY [facility] Last Admin: 03/24/18 09:55 Dose: 200 mg Aspirin (Aspirin Chewable) 81 mg PO DAILY [facility] Last Admin: 03/24/18 14:48 Dose: 81 mg Atorvastatin Calcium (Lipitor) 40 mg PO DIN [facility] Last Admin: 03/24/18 18:08 Dose: 40 mg Collagenase (Santyl) 0 gm TOP DAILY [facility] Last Admin: 03/24/18 14:50 Dose: Not Given Ferrous Sulfate (Feosol) 324 mg PO TID [facility] Last Admin: 03/24/18 18:08 Dose: 324 mg Meropenem 250 mg/ Sodium (Chloride) 100 mls @ 100 mls/hr IVPB Q12H [facility]; Protocol Stop: 04/21/18 19:16 Last Admin: 03/25/18 07:15 Dose: 100 mls/hr Insulin Human Lispro (Humalog Med) 0 units SC ACHS [facility]; Protocol Last Admin: 03/24/18 22:00 Dose: Not Given Midodrine (Proamatine) 5 mg PO 0800,1200,1600 [facility] Last Admin: 03/24/18 18:12 Dose: 5 mg Non-Formulary Medication (Sevelamer Carbonate [Renvela]) 1 tab PO BID [facility] Last Admin: 03/24/18 19:49 Dose: Not Given Ondansetron HCl (Zofran Inj) 4 mg IVP Q4H PRN PRN Reason: Nausea/Vomiting Pantoprazole Sodium (Protonix Ec Tab) 40 mg PO 0600 [facility] Last Admin: 03/25/18 05:15 Dose: 40 mg Tamsulosin HCl (Flomax) 0.4 mg PO DAILY [facility] Last Admin: 03/24/18 14:49 Dose: 0.4 mg Vitamin B Complex/Vit C/Folic Acid (Nephro-Tyson) 1 tab PO DAILY [facility] Last Admin: 03/24/18 14:49 Dose: 1 tab - Labs Labs: 03/25/18 09:00 03/25/18 09:00 PT 14.5 SECONDS (9.4-12.5) H 03/21/18 07:15 INR 1.26 03/21/18 07:15 APTT 28.9 Seconds (25.1-36.5) 03/21/18 07:15 - Constitutional Appears: No Acute Distress - Head Exam Head Exam: NORMAL INSPECTION - Eye Exam Eye Exam: EOMI, Normal appearance, PERRL - ENT Exam ENT Exam: Mucous Membranes Moist, Normal Exam - Respiratory Exam Respiratory Exam: Clear to Ausculation Bilateral. absent: Rales, Rhonchi, Wheezes - Cardiovascular Exam Cardiovascular Exam: RRR, +S1, +S2. absent: Gallop, Rubs, Murmur - GI/Abdominal Exam GI & Abdominal Exam: Soft. absent: Distended, Guarding, Tenderness, Rebound - Extremities Exam Additional comments: LE ulcer - Neurological Exam Neurological Exam: Alert, Awake, Oriented x3 - Psychiatric Exam Psychiatric exam: Normal Affect, Normal Mood - Skin Skin Exam: Dry, Intact, Normal Color, Warm Assessment and Plan - Assessment and Plan (Free Text) Assessment: 67 yo M with PMH of HTN, T2DM, ESRD on HD, CHF/dilated CM, and arthritis presents to [facility] for fever and weakness. Patient was found to have sepsis 2/2 to ESBL and infected AICD. Patient found to have infected AICD on RASHAUN and TTE, but no signs of vegetations on heart valves. Per ID, patient will require 4-6 weeks of IV Merrem. Patient does not qualify for PAOLO and will have home abx setup by social work. Patient will require weekly CBC, CMP, ESR, and CRP to be arranged by Dr. Thacker's office. Repeat blood cultures to be drawn after completion of antibiotics. The decision on whether to remove/replace AICD will be made at that time. Patient will continue HD on MWF for ESRD per nephrology. Patient to continue wound care with podiatry. Patient was seen and discussed in detail wtih Dr. Thacker. Bobby Mendoza DO PGY2
[2018-03-25] MEDS: Multivitamin Vitamin B Complex (Nephro-Vite) Tab PO SCH (14:50)
--- NOTE | 2018-03-25 14:53 | CP.PCM.PCO ---
Physician Communication Note - Physician Communication Note Physician Communication Note: Discharge with visiting nurse.
[2018-03-25] MEDS: Collagenase 250 Units/gm Ointment(30 gm) TOP SCH (14:55)
[2018-03-25] MEDS: SEVELAMER CARBONATE PO SCH (14:56)
[2018-03-25 14:57] VITALS: BP 126/73; PULSE 73
--- NOTE | 2018-03-25 16:14 | PN ---
DATE: 03/25/2018 SUBJECTIVE: The patient is currently seen in dialysis. He had 2.5 liters of fluid removed. He tolerated dialysis well. The patient had a RASHAUN yesterday which showed echogenic mobile thread-like structures attached to the AICD going from the RA to the RV, this is consistent with vegetation. There is no vegetation on the heart valves. The patient is felt to have a AICD wire infection/endocarditis. As per Infectious Disease note, he will require at least four weeks of IV antibiotics and this has to be given on a daily basis. MEDICATIONS: Medication list reviewed. The patient is currently on aspirin, amiodarone, Feosol, Flomax, insulin, meropenem, Lipitor, Nephro-Tyson, ProAmatine, Protonix, Santyl, Renvela, Tylenol and Zofran p.r.n. OBJECTIVE: Intake/output. Intake is 670, output is not charted. PHYSICAL EXAMINATION: VITAL SIGNS: Blood pressure is 90/52 at the end of dialysis, temperature 98.5, respiratory rate 20 with a pulse of 68. HEENT: Exam normocephalic, atraumatic. Conjunctiva pale. Sclerae nonicteric. NECK: Supple. No neck vein distention. CHEST: Clear to auscultation and percussion. No rales, rhonchi or wheezing. CARDIOVASCULAR: Exam shows a regular rate and rhythm with /MR/TR/PI. No S3, no S4, no rub. Positive AICD. ABDOMEN: Soft. Bowel sounds normal. No rebound, guarding or masses. EXTREMITIES: Show no lower extremity cyanosis, clubbing or edema. The patient has a healing wound over his left foot big toe area. Positive intact left upper extremity AV fistula, recently cannulated for dialysis. LABORATORY DATA AND IMAGING: CBC, white blood cell count today is 12.3, hemoglobin 10, platelet count is 202,000. Chemistry showed normal electrolytes. BUN 70 with a creatinine of 7.4. Glucose 128. Calcium 8.1 with an albumin of 3.4, phosphorus 5.5 with magnesium level of 2.2. Microbiology, left foot cultures were positive for coag-negative staph. Blood cultures are positive for ESBL E. Coli. ASSESSMENT: 1. Left foot infection treated appropriately by Podiatry and patient remains on antibiotic therapy. No evidence for osteomyelitis. The wound continues to heal. 2. Automated implantable cardioverter defibrillator wire infection. The patient appears to have vegetations on the wire. This was confirmed by a transesophageal echocardiogram done yesterday. The patient will require at least 4 weeks of intravenous meropenem which is being given every 12 hours. As per discussions between Infectious Disease and Cardiology, it is advisable to try and treat this without removing the automated implantable cardioverter defibrillator as a first step. 3. History of end-stage renal disease. The patient will continue Wednesday, Wednesday and Wednesday dialysis. He is tolerating dialysis well. 4, History of hypertension with cardiomyopathy, ejection fraction 30% with valvular heart disease as noted above. 5. History of anemia. The patient is status post 5 units of packed red blood cells during the hospitalization. Hemoglobin is stable in the 9-10 range. There was some question about gastrointestinal bleeding during the early part of the hospitalization. This has resolved. 6. History of secondary hyperparathyroidism. Phosphorus level remains stable, it is 5.5. The patient remains on a renal diet and binder therapy. 7. History of an elevated PSA level. PLAN: 1. Continue hypbd-awmtb-a-week dialysis. Next dialysis will be scheduled for 03/28/2018. 2. The patient will likely require admission to a subacute rehab for IV antibiotic therapy for at least 4 weeks duration and perhaps 6 weeks duration. 3. As a last resort, AICD would need to be removed. 4. Continue to follow labs on dialysis days. 5. Discussed with the patient in detail. Chidi Ramirez MD
--- NOTE | 2018-03-28 09:21 | DS ---
HISTORY OF PRESENT ILLNESS: The patient is seen sitting up in the bed in room 568, bed 1. Overnight nurse's notes were reviewed. The patient underwent transesophageal echo which he tolerated well. PHYSICAL EXAMINATION: GENERAL: The patient is seen sitting up in the bed. VITAL SIGNS: T-max 98.5, heart rate 68 to 71, blood pressure 90/52, 132/73, 88/53 and 154/85, respiration 18 to 20, O2 sat 98% to 100%. HEENT: Head is normocephalic, atraumatic. HEENT examination shows pinkish pale conjunctivae. Anicteric sclerae. No oropharyngeal lesion. NECK: No neck rigidity. CHEST: Kyphosis. Positive AICD noted in the left upper chest. CARDIOVASCULAR: S1, S2, regular rhythm. Positive systolic murmur at the left sternal border, right second intercostal space, left second intercostal space. LUNGS: Shows questionable decreased breath sound at the bases, left more than the right. ABDOMEN: Soft. Positive bowel sounds. No palpable hepatosplenomegaly. GENITALIA: Male. RECTAL: Deferred. EXTREMITIES: Lower-extremity shows no pitting edema. No calf tenderness. No Renaldo's signs. Positive dressing of the left foot noted. Positive contractures of the upper extremity and hands noted. Positive right upper extremity PICC line. Positive left upper extremity AV fistula noted. MUSCULOSKELETAL: Shows a body mass index of 27. DIAGNOSTICS: On 03/25/2018, WBC is 12.3, hemoglobin and hematocrit 10 and 31, platelet 202. Sodium 137, potassium 4.1, chloride 99, CO2 26, anion gap 17, BUN 70, creatinine 7.4, GFR 9, glucose 128, calcium 8.1, phosphorus 5.5, magnesium 2.2, alk phos 153. The Clostridium difficile and repeat blood cultures negative. The patient received 5 units of PRBC. IMPRESSION: 1. Extended-spectrum beta-lactamase Escherichia coli bacteremia and sepsis and possible endocarditis. 2. Coagulase-negative Staphylococcus aureus, left foot big toe infection. 3. Left foot chronic degenerative joint disease with subchondral cyst and hypertrophic changes with joint narrowing and chronic bone fragment of the base of the fifth metatarsal. 4. Status post amputation of the first distal phalanx. 5. Achilles tendon diffuse thickening and calcification. 6. Status post transesophageal echocardiogram with moderately impaired left ventricular ejection fraction of 25% to 30% with concentric left ventricular hypertrophy and moderate left ventricular global hypokinesis. 7. Moderately dilated right ventricle with moderately reduced right ventricular systolic function. 8. Mildly thickened aortic valve with mild aortic regurgitation. 9. Moderate mitral regurgitation. 10. Moderate tricuspid regurgitation. 11. Moderate pulmonic regurgitation. 12. Trace to mild aortic regurgitation. 13. Echogenic mobile structures attached to the automatic implantable cardioverter defibrillator lead extending from right atrium to right ventricle, possibly vegetation. 14. Status post automatic implantable cardioverter defibrillator placement. 15. Pulmonary hypertension with right ventricular systolic pressure of 47 mmHg. 16. Mild aortic sclerosis versus mild aortic stenosis. 17. Moderate mitral regurgitation. 18. Moderate tricuspid regurgitation. 19. Pulmonary hypertension with right ventricular systolic pressure of mmHg. 20. Possible cirrhosis with nodular prominent contour of the caudate lobe. 21. Cholelithiasis with gallbladder wall thickening and edema without gallbladder distention. 22. Hepatic cirrhosis with perihepatic ascites. 23. Pancreatic fatty infiltration and atrophy. 24. Right nonobstructing nephrolithiasis. 25. Moderate ascites. 26. Questionable cystitis versus bladder outlet obstruction with urinary bladder mural thickening. 27. Prostatomegaly. 28. Multilevel degenerative distance disk disease of the spine. 29. Moderate ascites. 30. Extended-spectrum beta-lactamase Escherichia coli bacteremia and sepsis with endocarditis of the automatic implantable cardioverter defibrillator lead. 31. End-stage renal disease, hemodialysis dependent via the left upper extremity AV fistula three times a week. 32. Iron deficient. 33. Transfusion requiring dependent anemia. 34. Left foot great toe ulceration. 35. Dilated cardiomyopathy. 36. Secondary hyperparathyroidism. 37. Elevated prostate-specific antigen. 38. Questionable gastrointestinal bleeding with fecal occult blood positive. 39. Leukocytosis with granulocytosis. 40. Normocytic anemia, status post packed red blood cell transfusion x5. 41. Transient lactic acidosis. 42. Elevated troponin of 0.16, etiology undetermined. 43. Questionable gastrointestinal bleeding with stool occult blood positive. PLAN: The patient has been cleared for discharge and the patient may be discharged home with home IV antibiotics as per Infectious Disease if approved by the patient's insurance, otherwise may discharge to subacute rehab. The patient's discharge medications will be as per the revised and updated ambulatory orders plus new prescriptions which includes amiodarone 200 mg daily Ecotrin 81 mg daily, Lipitor 40 mg daily Colace 100 mg three times a day, ferrous sulfate 324 three times a day, meropenem 250 mg IV every 12, ProAmatine 5 mg three times a day, Protonix 40 mg daily, Renvela 800 mg twice a day, Flomax 0.4 mg daily, Nephrocaps 1 tablet daily. At present, the patient has been seen by all subspecialty. The patient has been cleared for discharge by Infectious Disease, Cardiology, etc. At present, the patient is to be continued on aspirin 81 mg daily, amiodarone 200 mg daily, ferrous sulfate 324 three times a day, Flomax 0.4 mg daily, Lipitor 40 mg daily, meropenem 250 mg IV every 12, Nephro-Tyson 1 tablet daily, midodrine, ProAmatine 5 mg three times a day, Protonix 40 mg daily, Santyl to affected area daily, Renvela 1 tablet twice a day, Tylenol 650 mg p.o. suppository every 6 p.r.n., Zofran 4 mg IV every 6 p.r.n. The patient is medically ready for discharge. We are awaiting for the patient's approval by the patient's insurance company for home IV antibiotics, otherwise the patient will be discharged to subacute rehab. The patient's IV meropenem 250 mg every 12 needs to be continued for a total of 6 weeks. Time spent in the discharge process more than 45 minutes. Dictated and electronically signed, not read. Geoffrey Thacker MD
== END 2018-03-25 18:19 | disposition home health service (06) | DRG 314 ==
LOC: ED 12:30 → ERH 14:59 → 2RSO 17:41 → 5RNO 03-23 18:19
PROVIDERS: ADMIT Internal Medicine; ATTEND Internal Medicine
PROC: 30233N1 Transfusion of Nonautologous Red Blood Cells into Peripheral Vein, Percutaneous Approach (ICD-10-PCS; 2018-03-18)
PROC: 5A1D70Z Performance of Urinary Filtration, Intermittent, Less than 6 Hours Per Day (ICD-10-PCS; 2018-03-18)
PROC: 5A1D70Z Performance of Urinary Filtration, Intermittent, Less than 6 Hours Per Day (ICD-10-PCS; 2018-03-19)
PROC: 5A1D70Z Performance of Urinary Filtration, Intermittent, Less than 6 Hours Per Day (ICD-10-PCS; 2018-03-21)
PROC: 02HV33Z Insertion of Infusion Device into Superior Vena Cava, Percutaneous Approach (ICD-10-PCS; principal; 2018-03-23)
PROC: B548ZZA Ultrasonography of Superior Vena Cava, Guidance (ICD-10-PCS; 2018-03-23)
PROC: 5A1D70Z Performance of Urinary Filtration, Intermittent, Less than 6 Hours Per Day (ICD-10-PCS; 2018-03-23)
PROC: B246ZZ4 Ultrasonography of Right and Left Heart, Transesophageal (ICD-10-PCS; 2018-03-24)
PROC: 5A1D70Z Performance of Urinary Filtration, Intermittent, Less than 6 Hours Per Day (ICD-10-PCS; 2018-03-25)
DX: T82.7XXA Infection and inflammatory reaction due to other cardiac and vascular devices, implants and grafts, initial encounter (principal); A41.51 Sepsis due to Escherichia coli [E. coli]; I50.21 Acute systolic (congestive) heart failure; N18.6 End stage renal disease; D68.9 Coagulation defect, unspecified; E87.1 Hypo-osmolality and hyponatremia; E87.2 Acidosis; I13.2 Hypertensive heart and chronic kidney disease with heart failure and with stage 5 chronic kidney disease, or end stage renal disease; I42.0 Dilated cardiomyopathy; K92.2 Gastrointestinal hemorrhage, unspecified; L03.116 Cellulitis of left lower limb; N25.81 Secondary hyperparathyroidism of renal origin; R18.8 Other ascites; Z68.41 Body mass index [BMI] 40.0-44.9, adult; Z16.12 Extended spectrum beta lactamase (ESBL) resistance; D63.1 Anemia in chronic kidney disease; E11.22 Type 2 diabetes mellitus with diabetic chronic kidney disease; E11.621 Type 2 diabetes mellitus with foot ulcer; E11.65 Type 2 diabetes mellitus with hyperglycemia; E61.1 Iron deficiency; E66.01 Morbid (severe) obesity due to excess calories; E78.00 Pure hypercholesterolemia, unspecified; E78.5 Hyperlipidemia, unspecified; E83.39 Other disorders of phosphorus metabolism; F17.290 Nicotine dependence, other tobacco product, uncomplicated; G47.33 Obstructive sleep apnea (adult) (pediatric); I08.3 Combined rheumatic disorders of mitral, aortic and tricuspid valves; I25.10 Atherosclerotic heart disease of native coronary artery without angina pectoris; I27.20 Pulmonary hypertension, unspecified; I37.1 Nonrheumatic pulmonary valve insufficiency; I44.5 Left posterior fascicular block; I48.91 Unspecified atrial fibrillation; K74.60 Unspecified cirrhosis of liver; K80.20 Calculus of gallbladder without cholecystitis without obstruction; K86.89 Other specified diseases of pancreas; L03.032 Cellulitis of left toe; L97.529 Non-pressure chronic ulcer of other part of left foot with unspecified severity; M10.9 Gout, unspecified; M19.072 Primary osteoarthritis, left ankle and foot; M21.612 Bunion of left foot; M51.36 Other intervertebral disc degeneration, lumbar region; M54.30 Sciatica, unspecified side; M89.9 Disorder of bone, unspecified; N20.0 Calculus of kidney; N40.0 Benign prostatic hyperplasia without lower urinary tract symptoms; Y83.1 Surgical operation with implant of artificial internal device as the cause of abnormal reaction of the patient, or of later complication, without mention of misadventure at the time of the procedure; Z79.01 Long term (current) use of anticoagulants; Z83.3 Family history of diabetes mellitus; Z87.442 Personal history of urinary calculi; Z89.432 Acquired absence of left foot; Z91.19 Patient's noncompliance with other medical treatment and regimen; Z95.810 Presence of automatic (implantable) cardiac defibrillator; Z99.2 Dependence on renal dialysis; Z89.429 Acquired absence of other toe(s), unspecified side; Z79.82 Long term (current) use of aspirin

== ENCOUNTER 2018-04-11 10:57 | Emergency (ER) | payer OTHER, MEDICARE ==
[2018-04-11 11:43] VITALS: BMI 28.7
== END 2018-04-11 11:14 | disposition left against medical advice (07) ==
LOC: ED 10:57
DX: Z02.89 Encounter for other administrative examinations (principal)

== ENCOUNTER → 2018-06-04 | Outpatient (CLI) | payer OTHER, MEDICARE | LOC: RAD 09:17 ==

== ENCOUNTER 2018-06-15 10:38 | Inpatient (IN) | payer OTHER, MEDICARE ==
[2018-06-15 11:46] LABS: BASO # 0.02 K/mm3 (0.0-2.0); BASO % 0.3 % (0.0-3.0); EOS # 0.2 (0.0-0.7); LYMPH # 0.5 (1.2-3.4); LYMPH % 5.9 % (22.0-35.0); MEAN CELL VOLUME 94.2 fl (80.0-105.0); MEAN CORPUSCULAR HEMOGLOBIN 28.4 pg (25.0-35.0); MEAN CORPUSCULAR HGB CONC 30.1 g/dl (31.0-37.0); MEAN PLATELET VOLUME 9.5 fl (7.0-11.0); MONO # 0.8 (0.1-0.6); MONO % 9.7 % (1.0-6.0); RBC 2.08 10^6/uL (3.5-6.1); RED CELL DISTRIBUTION WIDTH 16.8 % (11.5-14.5); WHITE BLOOD COUNT 7.9 10^3/uL (4.5-11.0)
[2018-06-15 11:53] LABS: HEMOGLOBIN 5.9 g/dL (14.0-18.0); INR 1.45; PARTIAL THROMBOPLASTIN TIME 35.4 Seconds (26.9-38.3); PROTHROMBIN TIME 16.4 SECONDS (9.4-12.5)
--- NOTE | 2018-06-15 12:01 | ED PDOC ---
Arrival/HPI - General Chief Complaint: GI Problem Time Seen by Provider: 06/15/18 10:59 Historian: Patient - History of Present Illness Narrative History of Present Illness (Text): 06/15/18 11:59 67 year old male, whose past medical history includes dilated cardiomyopathy (EF 22%) s/p defibrillator, ESRD on HD MWF, arthritis, hypertension, Diabetes, and Anemia requiring transfusion, who presents to the emergency department com plaining of bright red blood in stool earlier today. Patient notes associated shortness of breath, dizziness, and generalized fatigue since yesterday. He believes his weakness may have come from over exertion or from a low blood count. Patient states he did not have dialysis today. Of note, Bone marrow biopsy from 02/18 was suggestive of anemia of chronic disease. 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 pylori negative gastritis, and normal duodenal biopsies. Patient had prior CSPY on 01/21/18 with cecal AVMx s/p BiPol cautery per prior GI note. Patient denies history of headache, chest pain, nausea, vomiting, diarrhea, back pain, or any other complaint. PMD: Dr. Thacker Sales Account Associate: Dr. Young Time/Duration: Prior to Arrival Symptom Onset: Gradual Symptom Course: Unchanged Activities at Onset: Light Context: Home Past Medical History - Provider Review Nursing Documentation Reviewed: Yes - Infectious Disease Hx of Infectious Diseases: None - Cardiac Hx Cardiac Disorders: Yes Other/Comment: defibrilator - Pulmonary Hx Respiratory Disorders: Yes (SMOKES CIGARS OCCASIONALLY) - Neurological Hx Neurological Disorder: No - HEENT Hx HEENT Disorder: No - Renal Hx Dialysis: Yes (MWF) Hx Renal Failure: Yes - Endocrine/Metabolic Hx Diabetes Mellitus Type 2: Yes - Hematological/Oncological Hx Blood Disorders: Yes Hx Anemia: Yes (BLOOD TRANSFUSION) - Integumentary Hx Dermatological Disorder: Yes Other/Comment: 02-16-18 BILATERAL LEG EDEMA +2 PITTING - Musculoskeletal/Rheumatological Hx Musculoskeletal Disorders: Yes Hx Arthritis: Yes Hx Falls: Yes Hx Unsteady Gait: Yes (ROLLATOR) - Gastrointestinal Hx Gastrointestinal Disorders: Yes (CONSTIPATION) Hx Gall Bladder Disease: Yes (GALLSTONES) - Genitourinary/Gynecological Hx Genitourinary Disorders: Yes (ANURIA) Hx Prostate Problems: Yes (BPH) - Psychiatric Hx Psychophysiologic Disorder: No Hx Substance Use: No - Surgical History Other/Comment: L AV shunt - Anesthesia Hx Anesthesia: Yes Hx Anesthesia Reactions: No Hx Malignant Hyperthermia: No Family/Social History - Physician Review Nursing Documentation Reviewed: Yes Family/Social History: No Known Family HX Smoking Status: Light Smoker < 10 Cigarettes Daily Hx Alcohol Use: Yes (1 ALCOHOLIC DRINKS SOCIALLY-DRINKS SANGRIA.) Hx Substance Use: No Allergies/Home Meds Allergies/Adverse Reactions: Allergies No Known Allergies Allergy (Verified 04/11/18 11:42) Home Medications: Home Meds Medication Instructions Recorded Confirmed Tamsulosin [Flomax] 0.4 mg PO DAILY 02/06/18 06/15/18 Amiodarone HCl 1 tab DAILY 02/16/18 06/15/18 Ferrous Sulfate [Ferosul] 325 mg PO TID 02/16/18 06/15/18 Sevelamer Carbonate [Renvela] 1 tab BID 02/16/18 06/15/18 Vit B Cplx C No.13/Folic AC/D3 1 each PO DAILY 02/16/18 06/15/18 [Nephrocaps Qt Tablet] Review of Systems - Review of Systems Constitutional: absent: Fevers Eyes: Other (generalized fatigue). absent: Vision Changes ENT: absent: Hearing Changes Respiratory: SOB. absent: Cough Cardiovascular: absent: Chest Pain Gastrointestinal: Other (Bright red blood per rectum). absent: Abdominal Pain, Constipation, Diarrhea, Nausea, Vomiting Neurological: absent: Headache, Focal Weakness, Gait Changes, Speech Changes, Facial Droop Psychiatric: absent: Anxiety, Depression Physical Exam Vital Signs Reviewed: Yes Vital Signs Temp Pulse Resp BP Pulse Ox 06/15/18 10:39 98.4 F 88 20 88/42 L 93 L Temperature: Afebrile Blood Pressure: Hypotensive Pulse: Regular Respiratory Rate: Normal Appearance: Positive for: Well-Appearing, Non-Toxic, Comfortable Pain Distress: None Mental Status: Positive for: Alert and Oriented X 3 - Systems Exam Head: Present: Atraumatic, Normocephalic Pupils: Present: PERRL Extroacular Muscles: Present: EOMI Conjunctiva: Present: Normal Mouth: Present: Moist Mucous Membranes Neck: Present: Normal Range of Motion Respiratory/Chest: Present: Clear to Auscultation, Good Air Exchange. No: Respiratory Distress, Accessory Muscle Use Cardiovascular: Present: Regular Rate and Rhythm, Normal S1, S2. No: Murmurs Abdomen: No: Tenderness, Distention, Peritoneal Signs Rectal: Present: Occult Blood (bright red blood ) Back: Present: Normal Inspection Upper Extremity: Present: Normal Inspection, Other (left AV fistula). No: Cyanosis, Edema Lower Extremity: Present: Normal Inspection. No: Edema Neurological: Present: GCS=15, CN II-XII Intact, Speech Normal Skin: Present: Warm, Dry, Normal Color. No: Rashes Psychiatric: Present: Alert, Oriented x 3, Normal Insight, Normal Concentration Medical Decision Making ED Course and Treatment: Impression: 67 year old male who presents to the complaining of blood in stool and generalized fatigue. Plan: -- Labs -- EKG -- Labs -- Protonix inj -- Reassess and disposition Prior Visits: Notes and results from previous visits were reviewed. Progress Notes: 06/15/18 12:[address] López, covering for Dr. Thacker. Will tranfuse 2 units in dialysis. Consults for nephrology and gastroenterology placed. Accepted by Dr. López. Dr. Young aware - Lab Interpretations Lab Results: PT 16.4 SECONDS (9.4-12.5) H 06/15/18 11:00 INR 1.45 06/15/18 11:00 APTT 35.4 Seconds (26.9-38.3) 06/15/18 11:00 I have reviewed the lab results: Yes - EKG Interpretation Interpreted by ED Physician: Yes Type: 12 lead EKG - Scribe Statement The provider has reviewed the documentation as recorded by the Edieibbrock Brito All medical record entries made by the Antonieta were at my direction and personally dictated by me. I have reviewed the chart and agree that the record accurately reflects my personal performance of the history, physical exam, medical decision making, and the department course for this patient. I have also personally directed, reviewed, and agree with the discharge instructions and disposition. Disposition/Present on Arrival - Present on Arrival Any Indicators Present on Arrival: No History of DVT/PE: No History of Uncontrolled Diabetes: No Urinary Catheter: No History of Decub. Ulcer: No History Surgical Site Infection Following: None - Disposition Have Diagnosis and Disposition been Completed?: Yes Diagnosis: Anemia, Bright red blood per rectum, End stage chronic kidney disease Disposition: HOSPITALIZED Disposition Time: 12:02 Patient Plan: Observation Patient Problems: Current Active Problems Problem Status Onset Anemia Acute Bright red blood per rectum Acute Condition: FAIR
[2018-06-15 12:07] LABS: ALB/GLOB RATIO 0.8 (1.1-1.8); CALCIUM 8.2 mg/dL (8.4-10.5)
--- NOTE | 2018-06-15 12:56 | CARD ---
APPROVED REPORT Date of service: 06/15/2018 EKG Measurement Heart [id number] <Conclusion> Sinus rhythm with occasional premature ventricular complexes Right axis deviation Low voltage QRS Poor R Progression V Leads. Prolonged NC Abnormal ECG
--- NOTE | 2018-06-15 13:47 | CP.PCM.CON ---
<Dl Santos - Last Filed: 06/15/18 17:08> History of Present Illness - History of Present Illness History of Present Illness: Dl Santos PGY2 GI Consult Note for Dr. Wynn Reason for consult: anemia, bright red blood per rectum Mr. Fuentes is a 67 year old male with a PMH of dilated cardiomyopathy (EF 22%) s/p defibrillator, ESRD on HD MWF, DM2, Arthritis, HTN and Anemia of chronic disease/iron deficiency who is admitted with symptomatic anemia and bloody stool movement. GI is consulted for anemia, and bright red blood per rectum. Upon evaluation, the patient states that earlier today, he was having a bowel movement that was loose, when he noticed bright red blood mixed with the stools in the bowl and with wiping. He felt dizzy and weak following the event. The patient denies any prior episodes of dark stools or blood in the stools, or any other bowel habit changes. He denies abdominal pain associated with the BM, and denies any weight loss. 12-pt ROS was reviewed and is otherwise unremarkable. In ED, LESLIE done by ED MD was positive for bright red blood per rectum. The patient is scheduled for dialysis today but he has not gone yet due to his condition. Records indicate that That patient had colonoscopy in 01/2018 that showed cecal AVMs s/p BiPol cautery with Dr. Redmond. He underwent EGD in 01/[address] Wynn that shown benign 3mm esophageal squamous papilloma, gastritis. Bone biopsy done 01/2018 to work up anemia showed anemia of chronic disease. The patient has history of multiple blood transfusions. PMH: as above PSH: NYASIA AVF, AICD Meds: Reviewed, as per MAR Allergies: NKDA FHx: denies stomach cancer, colon cancer SHx: social ETOH use, occasional cigar use, denies cigarette or illicit drug use Review of Systems - Review of Systems All systems: reviewed and no additional remarkable complaints except (as per HPI) Past Patient History - Infectious Disease Hx of Infectious Diseases: None - Past Social History Smoking Status: Light Smoker < 10 Cigarettes Daily - CARDIAC Hx Cardiac Disorders: Yes Other/Comment: defibrilator - PULMONARY Hx Respiratory Disorders: Yes (SMOKES CIGARS OCCASIONALLY) - NEUROLOGICAL Hx Neurological Disorder: No - HEENT Hx HEENT Problems: No - RENAL Hx Dialysis: Yes (MWF) Hx Renal Failure: Yes - ENDOCRINE/METABOLIC Hx Diabetes Mellitus Type 2: Yes - HEMATOLOGICAL/ONCOLOGICAL Hx Blood Disorders: Yes Hx Anemia: Yes (BLOOD TRANSFUSION) - INTEGUMENTARY Hx Dermatological Problems: Yes Other/Comment: 02-16-18 BILATERAL LEG EDEMA +2 PITTING - MUSCULOSKELETAL/RHEUMATOLOGICAL Hx Musculoskeletal Disorders: Yes Hx Arthritis: Yes Hx Falls: Yes Hx Unsteady Gait: Yes (ROLLATOR) - GASTROINTESTINAL Hx Gastrointestinal Disorders: Yes (CONSTIPATION) Hx Gall Bladder Disease: Yes (GALLSTONES) - GENITOURINARY/GYNECOLOGICAL Hx Genitourinary Disorders: Yes (ANURIA) Hx Prostate Problems: Yes (BPH) - PSYCHIATRIC Hx Psychophysiologic Disorder: No Hx Substance Use: No - SURGICAL HISTORY Other/Comment: L AV shunt - ANESTHESIA Hx Anesthesia: Yes Hx Anesthesia Reactions: No Hx Malignant Hyperthermia: No Meds Allergies/Adverse Reactions: Allergies Allergy/AdvReac Type Severity Reaction Status Date / Time No Known Allergies Allergy Verified 04/11/18 11:42 Physical Exam - Constitutional Appears: Well, Non-toxic, No Acute Distress - Head Exam Head Exam: ATRAUMATIC, NORMAL INSPECTION - Eye Exam Eye Exam: Normal appearance. absent: Scleral icterus - ENT Exam ENT Exam: Mucous Membranes Moist, Normal Exam - Neck Exam Neck exam: Positive for: Full Rom, Normal Inspection - Respiratory Exam Respiratory Exam: NORMAL BREATHING PATTERN. absent: Respiratory Distress - Cardiovascular Exam Cardiovascular Exam: RRR, +S1, +S2. absent: JVD Additional comments: AICD - GI/Abdominal Exam GI & Abdominal Exam: Soft. absent: Distended, Tenderness - Rectal Exam Rectal Exam: Deferred - Extremities Exam Extremities exam: Negative for: pedal edema Additional comments: LUE AVF +thrill +bruit - Neurological Exam Neurological exam: Alert, Oriented x3 - Skin Skin Exam: Normal Color, Warm Results - Vital Signs Recent Vital Signs: Last Vital Signs Temp 99.1 F 06/15/18 13:44 Pulse 88 06/15/18 13:44 Resp 14 06/15/18 13:44 BP 99/45 L 06/15/18 13:44 Pulse Ox 100 06/15/18 13:12 - Labs Result Diagrams: 06/15/18 11:00 06/15/18 11:00 Labs: Laboratory Results - last 24 hr 06/15/18 06/15/1819 11:00 11:00 11:00 WBC 7.9 RBC 2.08 L Hgb 5.9 L* Hct 19.6 L* MCV 94.2 D MCH 28.4 MCHC 30.1 L RDW 16.8 H Plt Count 181 MPV 9.5 Neut % (Auto) 82.1 H Lymph % (Auto) 5.9 L [place] % (Auto) 9.7 H Eos % (Auto) 2.0 Baso % (Auto) 0.3 Lymph # (Auto) 0.5 L [place] # (Auto) 0.8 H Eos # (Auto) 0.2 Baso # (Auto) 0.02 Absolute Neuts (auto) 6.48 PT 16.4 H INR 1.45 APTT 35.4 Sodium 139 Potassium 4.8 Chloride 102 Carbon Dioxide 23 Anion Gap 19 BUN 73 H Creatinine 9.1 H* D Est GFR ( Amer) 7 Est GFR (Non-Af Amer) 6 Random Glucose 150 H Calcium 8.2 L Total Bilirubin 0.5 AST 25 ALT 12 Alkaline Phosphatase 116 Total Protein 6.6 Albumin 3.0 Globulin 3.6 Albumin/Globulin Ratio 0.8 L Blood Type Antibody Screen Crossmatch BBK History Checked 06/15/18 11:00 WBC RBC Hgb Hct MCV MCH MCHC RDW Plt Count MPV Neut % (Auto) Lymph % (Auto) [place] % (Auto) Eos % (Auto) Baso % (Auto) Lymph # (Auto) [place] # (Auto) Eos # (Auto) Baso # (Auto) Absolute Neuts (auto) PT INR APTT Sodium Potassium Chloride Carbon Dioxide Anion Gap BUN Creatinine Est GFR ( Amer) Est GFR (Non-Af Amer) Random Glucose Calcium Total Bilirubin AST ALT Alkaline Phosphatase Total Protein Albumin Globulin Albumin/Globulin Ratio Blood Type A POSITIVE Antibody Screen Negative Crossmatch See Detail BBK History Checked Patient has bt Assessment & Plan - Assessment and Plan (Free Text) Assessment: 67 year old male with a PMH of dilated cardiomyopathy (EF 22%) s/p defibrillator, ESRD on HD MWF, DM2, Arthritis, HTN and Anemia of chronic disease/iron deficiency who is admitted with symptomatic anemia and bloody stool movement. GI is consulted for anemia, and bright red blood per rectum. Likely source is AVM, however, patient is at risk for ischemic colitis given his cardiac history and ESRD. Plan: - optimize patient hemodynamically - for HD today - getting transfused 2u pRBC during HD - blood scan ordered to evaluate location of bleeding - monitor VS - monitor H/H - patient will need a colonoscopy once optimized to evaluate his AVMs - ICU consulted placed, discussed with Dr. Bruner, as pt's cardiac hx and current GI bleed leave him at risk for worsening condition - discussed plan w/ PMD - further recs per Dr. Wynn Case was reviewed and discussed with Dr. Wynn <Foreign Wynn V - Last Filed: 06/15/18 19:14> Meds - Medications Medications: Current Medications Amiodarone HCl (Cordarone) 200 mg PO DAILY JAVIER Atorvastatin Calcium (Lipitor) 40 mg PO DIN JAVIER Ferrous Sulfate (Feosol) 324 mg PO TID JAVIER Midodrine (Proamatine) 5 mg PO 0800,1200,1600 JAVIER Pantoprazole Sodium (Protonix Inj) 40 mg IVP DAILY JAVIER Sevelamer HCl (Renagel) 1 mg PO BID JAVIER Tamsulosin HCl (Flomax) 0.4 mg PO DAILY JAVIER Vitamin B Complex/Vit C/Folic Acid (Nephro-Tyson) 1 tab PO DAILY JAVIER Results - Vital Signs Recent Vital Signs: Last Vital Signs Temp 99.1 F 06/15/18 13:44 Pulse 88 06/15/18 13:44 Resp 14 06/15/18 13:44 BP 99/45 L 06/15/18 13:44 Pulse Ox 100 06/15/18 13:12 - Labs Result Diagrams: 06/15/18 18:05 06/15/18 11:00 Labs: Laboratory Results - last 24 hr 06/15/18 06/15/18 06/15/18 11:00 11:00 11:00 WBC 7.9 RBC 2.08 L Hgb 5.9 L* Hct 19.6 L* MCV 94.2 D MCH 28.4 MCHC 30.1 L RDW 16.8 H Plt Count 181 MPV 9.5 Neut % (Auto) 82.1 H Lymph % (Auto) 5.9 L [place] % (Auto) 9.7 H Eos % (Auto) 2.0 Baso % (Auto) 0.3 Lymph # (Auto) 0.5 L [place] # (Auto) 0.8 H Eos # (Auto) 0.2 Baso # (Auto) 0.02 Absolute Neuts (auto) 6.48 PT 16.4 H INR 1.45 APTT 35.4 pO2 VBG pH VBG pCO2 VBG HCO3 VBG Total CO2 VBG O2 Sat (Calc) VBG Base Excess VBG Potassium Glucose Lactate FiO2 Sodium 139 Potassium 4.8 Chloride 102 Carbon Dioxide 23 Anion Gap 19 BUN 73 H Creatinine 9.1 H* D Est GFR ( Amer) 7 Est GFR (Non-Af Amer) 6 Random Glucose 150 H Calcium 8.2 L Total Bilirubin 0.5 AST 25 ALT 12 Alkaline Phosphatase 116 Troponin I Total Protein 6.6 Albumin 3.0 Globulin 3.6 Albumin/Globulin Ratio 0.8 L Venous Blood Potassium Blood Type Antibody Screen Crossmatch BBK History Checked 06/15/18 06/15/18 06/15/18 11:00 18:05 18:05 WBC 6.9 RBC 2.57 L Hgb 7.3 L Hct 23.5 L MCV 91.4 MCH 28.4 MCHC 31.1 RDW 16.2 H Plt Count 174 MPV 9.1 Neut % (Auto) Lymph % (Auto) [place] % (Auto) Eos % (Auto) Baso % (Auto) Lymph # (Auto) [place] # (Auto) Eos # (Auto) Baso # (Auto) Absolute Neuts (auto) PT INR APTT pO2 204 H VBG pH 7.51 H VBG pCO2 36.0 L VBG HCO3 28.7 H VBG Total CO2 29.8 H VBG O2 Sat (Calc) 97.3 H VBG Base Excess 5.6 H VBG Potassium 3.2 L Glucose 106 Lactate 0.9 FiO2 21.0 Sodium 139.0 Potassium Chloride 106.0 Carbon Dioxide Anion Gap BUN Creatinine Est GFR ( Amer) Est GFR (Non-Af Amer) Random Glucose Calcium Total Bilirubin AST ALT Alkaline Phosphatase Troponin I Total Protein Albumin Globulin Albumin/Globulin Ratio Venous Blood Potassium 3.2 L Blood Type A POSITIVE Antibody Screen Negative Crossmatch See Detail BBK History Checked Patient has bt 06/15/18 18:05 WBC RBC Hgb Hct MCV MCH MCHC RDW Plt Count MPV Neut % (Auto) Lymph % (Auto) [place] % (Auto) Eos % (Auto) Baso % (Auto) Lymph # (Auto) [place] # (Auto) Eos # (Auto) Baso # (Auto) Absolute Neuts (auto) PT INR APTT pO2 VBG pH VBG pCO2 VBG HCO3 VBG Total CO2 VBG O2 Sat (Calc) VBG Base Excess VBG Potassium Glucose Lactate FiO2 Sodium Potassium Chloride Carbon Dioxide Anion Gap BUN Creatinine Est GFR ( Amer) Est GFR (Non-Af Amer) Random Glucose Calcium Total Bilirubin AST ALT Alkaline Phosphatase Troponin I 0.09 D Total Protein Albumin Globulin Albumin/Globulin Ratio Venous Blood Potassium Blood Type Antibody Screen Crossmatch BBK History Checked Attending/Attestation - Attestation I have personally seen and examined this patient.: Yes I have fully participated in the care of the patient.: Yes I have reviewed all pertinent clinical information: Yes Notes (Text): This is an addendum to the GI consultation report dictated by the resident. The patient was seen and evaluated with the resident The patient was seen and evaluated here earlier in the dialysis unit. Receiving blood transfusions History of chronic anemia of multifactorial etiology status post EGD colonoscopy bone marrow biopsy done in the past. History of hiatus hernia and Schatzki's ring, diverticulosis cecal AVM status post BiCAP therapy in the past. End-stage renal disease on hemodialysis. Admitted with the severe anemia episode of rectal bleeding. No complaints of any abdominal pain On examination abdomen soft nontender Discussed with the Dr. Lira and Dr. Young Close follow-up with a hemoglobin hematocrit Bleeding scan ICU consult Would consider colonoscopy based on the clinical course however patient need to be optimized prior to that CHF ascites status post paracentesis in the past ejection fraction around 22%. Multiple comorbidities high risk patient 06/15/18 19:11
--- NOTE | 2018-06-15 15:17 | CP.PCM.HP ---
<Jordin Lira V - Last Filed: 06/15/18 15:10> History of Present Illness - History of Present Illness History of Present Illness: 67 year old male with history of dilated cardiomyopathy with EF 22%, s/p defibrillator, ESRD on HD, HTN, diabetes and chronic anemia presented to the Emergency Room today for bright red blood in his stool. Patient also complains of shortness of breath, fatigue, and dizziness since yesterday. He denies chest pain. Present on Admission - Present on Admission Any Indicators Present on Admission: No History of DVT/PE: No History of Uncontrolled Diabetes: No Urinary Catheter: No Decubitus Ulcer Present: No Review of Systems - Constitutional Constitutional: absent: Chills, Excessive Sweating, Fever - Cardiovascular Cardiovascular: Dyspnea. absent: Chest Pain, Diaphoresis - Respiratory Respiratory: Dyspnea. absent: Cough, Hemoptysis - Gastrointestinal Gastrointestinal: As Per HPI Past Patient History - Infectious Disease Hx of Infectious Diseases: None - Past Social History Smoking Status: Light Smoker < 10 Cigarettes Daily - CARDIAC Hx Cardiac Disorders: Yes Other/Comment: defibrilator - PULMONARY Hx Respiratory Disorders: Yes (SMOKES CIGARS OCCASIONALLY) - NEUROLOGICAL Hx Neurological Disorder: No - HEENT Hx HEENT Problems: No - RENAL Hx Dialysis: Yes (MWF) Hx Renal Failure: Yes - ENDOCRINE/METABOLIC Hx Diabetes Mellitus Type 2: Yes - HEMATOLOGICAL/ONCOLOGICAL Hx Blood Disorders: Yes Hx Anemia: Yes (BLOOD TRANSFUSION) - INTEGUMENTARY Hx Dermatological Problems: Yes Other/Comment: 02-16-18 BILATERAL LEG EDEMA +2 PITTING - MUSCULOSKELETAL/RHEUMATOLOGICAL Hx Musculoskeletal Disorders: Yes Hx Arthritis: Yes Hx Falls: Yes Hx Unsteady Gait: Yes (ROLLATOR) - GASTROINTESTINAL Hx Gastrointestinal Disorders: Yes (CONSTIPATION) Hx Gall Bladder Disease: Yes (GALLSTONES) - GENITOURINARY/GYNECOLOGICAL Hx Genitourinary Disorders: Yes (ANURIA) Hx Prostate Problems: Yes (BPH) - PSYCHIATRIC Hx Psychophysiologic Disorder: No Hx Substance Use: No - SURGICAL HISTORY Other/Comment: L AV shunt - ANESTHESIA Hx Anesthesia: Yes Hx Anesthesia Reactions: No Hx Malignant Hyperthermia: No Meds Allergies/Adverse Reactions: Allergies Allergy/AdvReac Type Severity Reaction Status Date / Time No Known Allergies Allergy Verified 04/11/18 11:42 Physical Exam - Constitutional Appears: No Acute Distress - Head Exam Head Exam: ATRAUMATIC, NORMOCEPHALIC - Respiratory Exam Respiratory Exam: Decreased Breath Sounds, NORMAL BREATHING PATTERN - Cardiovascular Exam Cardiovascular Exam: +S1, +S2 - GI/Abdominal Exam GI & Abdominal Exam: Normal Bowel Sounds, Soft. absent: Tenderness - Extremities Exam Extremities exam: Positive for: normal inspection Results - Vital Signs Recent Vital Signs: Last Vital Signs Temp 99.1 F 06/15/18 13:44 Pulse 88 06/15/18 13:44 Resp 14 06/15/18 13:44 BP 99/45 L 06/15/18 13:44 Pulse Ox 100 06/15/18 13:12 - Labs Result Diagrams: 06/15/18 11:00 06/15/18 11:00 Labs: Laboratory Results - last 24 hr 06/15/18 06/15/18 06/15/18 11:00 11:00 11:00 WBC 7.9 RBC 2.08 L Hgb 5.9 L* Hct 19.6 L* MCV 94.2 D MCH 28.4 MCHC 30.1 L RDW 16.8 H Plt Count 181 MPV 9.5 Neut % (Auto) 82.1 H Lymph % (Auto) 5.9 L [place] % (Auto) 9.7 H Eos % (Auto) 2.0 Baso % (Auto) 0.3 Lymph # (Auto) 0.5 L [place] # (Auto) 0.8 H Eos # (Auto) 0.2 Baso # (Auto) 0.02 Absolute Neuts (auto) 6.48 PT 16.4 H INR 1.45 APTT 35.4 Sodium 139 Potassium 4.8 Chloride 102 Carbon Dioxide 23 Anion Gap 19 BUN 73 H Creatinine 9.1 H* D Est GFR ( Amer) 7 Est GFR (Non-Af Amer) 6 Random Glucose 150 H Calcium 8.2 L Total Bilirubin 0.5 AST 25 ALT 12 Alkaline Phosphatase 116 Total Protein 6.6 Albumin 3.0 Globulin 3.6 Albumin/Globulin Ratio 0.8 L Blood Type Antibody Screen Crossmatch BBK History Checked 06/15/18 11:00 WBC RBC Hgb Hct MCV MCH MCHC RDW Plt Count MPV Neut % (Auto) Lymph % (Auto) [place] % (Auto) Eos % (Auto) Baso % (Auto) Lymph # (Auto) [place] # (Auto) Eos # (Auto) Baso # (Auto) Absolute Neuts (auto) PT INR APTT Sodium Potassium Chloride Carbon Dioxide Anion Gap BUN Creatinine Est GFR ( Amer) Est GFR (Non-Af Amer) Random Glucose Calcium Total Bilirubin AST ALT Alkaline Phosphatase Total Protein Albumin Globulin Albumin/Globulin Ratio Blood Type A POSITIVE Antibody Screen Negative Crossmatch See Detail BBK History Checked Patient has bt Assessment & Plan - Assessment and Plan (Free Text) Assessment: Acute symptomatic anemia Anemia of chronic disease ESRD on HD Cardiomyopathy with EF 22% HTN DMII Plan: Patient seen today in dialysis. He complains of bright red blood in the stool. Hemoglobin is 5.9. Patient will be transfused 2 units packed red blood cells. Gastroenterology consult has been requested. Patient has had colonoscopy in january of 2018 which showed cecal AVMs. We will follow the hemoglobin and hematocit. continue iron supplementation. Nephrology consult has also been requested as patient is a dialysis patient. He will continue dialysis MWF. <Foreign Wynn V - Last Filed: 06/15/18 19:05> Results - Vital Signs Recent Vital Signs: Last Vital Signs Temp 99.1 F 06/15/18 13:44 Pulse 88 06/15/18 13:44 Resp 14 06/15/18 13:44 BP 99/45 L 06/15/18 13:44 Pulse Ox 100 06/15/18 13:12 - Labs Result Diagrams: 06/15/18 18:05 06/15/18 11:00 Labs: Laboratory Results - last 24 hr 06/15/18 06/15/18 06/15/18 11:00 11:00 11:00 WBC 7.9 RBC 2.08 L Hgb 5.9 L* Hct 19.6 L* MCV 94.2 D MCH 28.4 MCHC 30.1 L RDW 16.8 H Plt Count 181 MPV 9.5 Neut % (Auto) 82.1 H Lymph % (Auto) 5.9 L [place] % (Auto) 9.7 H Eos % (Auto) 2.0 Baso % (Auto) 0.3 Lymph # (Auto) 0.5 L [place] # (Auto) 0.8 H Eos # (Auto) 0.2 Baso # (Auto) 0.02 Absolute Neuts (auto) 6.48 PT 16.4 H INR 1.45 APTT 35.4 pO2 VBG pH VBG pCO2 VBG HCO3 VBG Total CO2 VBG O2 Sat (Calc) VBG Base Excess VBG Potassium Glucose Lactate FiO2 Sodium 139 Potassium 4.8 Chloride 102 Carbon Dioxide 23 Anion Gap 19 BUN 73 H Creatinine 9.1 H* D Est GFR ( Amer) 7 Est GFR (Non-Af Amer) 6 Random Glucose 150 H Calcium 8.2 L Total Bilirubin 0.5 AST 25 ALT 12 Alkaline Phosphatase 116 Troponin I Total Protein 6.6 Albumin 3.0 Globulin 3.6 Albumin/Globulin Ratio 0.8 L Venous Blood Potassium Blood Type Antibody Screen Crossmatch BBK History Checked 06/15/18 06/15/18 06/15/18 11:00 18:05 18:05 WBC 6.9 RBC 2.57 L Hgb 7.3 L Hct 23.5 L MCV 91.4 MCH 28.4 MCHC 31.1 RDW 16.2 H Plt Count 174 MPV 9.1 Neut % (Auto) Lymph % (Auto) [place] % (Auto) Eos % (Auto) Baso % (Auto) Lymph # (Auto) [place] # (Auto) Eos # (Auto) Baso # (Auto) Absolute Neuts (auto) PT INR APTT pO2 204 H VBG pH 7.51 H VBG pCO2 36.0 L VBG HCO3 28.7 H VBG Total CO2 29.8 H VBG O2 Sat (Calc) 97.3 H VBG Base Excess 5.6 H VBG Potassium 3.2 L Glucose 106 Lactate 0.9 FiO2 21.0 Sodium 139.0 Potassium Chloride 106.0 Carbon Dioxide Anion Gap BUN Creatinine Est GFR ( Amer) Est GFR (Non-Af Amer) Random Glucose Calcium Total Bilirubin AST ALT Alkaline Phosphatase Troponin I Total Protein Albumin Globulin Albumin/Globulin Ratio Venous Blood Potassium 3.2 L Blood Type A POSITIVE Antibody Screen Negative Crossmatch See Detail BBK History Checked Patient has bt 06/15/18 18:05 WBC RBC Hgb Hct MCV MCH MCHC RDW Plt Count MPV Neut % (Auto) Lymph % (Auto) [place] % (Auto) Eos % (Auto) Baso % (Auto) Lymph # (Auto) [place] # (Auto) Eos # (Auto) Baso # (Auto) Absolute Neuts (auto) PT INR APTT pO2 VBG pH VBG pCO2 VBG HCO3 VBG Total CO2 VBG O2 Sat (Calc) VBG Base Excess VBG Potassium Glucose Lactate FiO2 Sodium Potassium Chloride Carbon Dioxide Anion Gap BUN Creatinine Est GFR ( Amer) Est GFR (Non-Af Amer) Random Glucose Calcium Total Bilirubin AST ALT Alkaline Phosphatase Troponin I 0.09 D Total Protein Albumin Globulin Albumin/Globulin Ratio Venous Blood Potassium Blood Type Antibody Screen Crossmatch BBK History Checked Attending/Attestation - Attestation I have personally seen and examined this patient.: Yes I have fully participated in the care of the patient.: Yes I have reviewed all pertinent clinical information: Yes Notes (Text): The patient was seen and evaluated here earlier in the dialysis unit. Receiving blood transfusions History of chronic anemia of multifactorial etiology status post EGD colonoscopy bone marrow biopsy done in the past. History of hiatus hernia and Schatzki's ring, diverticulosis cecal AVM status post BiCAP therapy in the past. End-stage renal disease on hemodialysis. Admitted with the severe anemia episode of rectal bleeding. No complaints of any abdominal pain On examination abdomen soft nontender Discussed with the Dr. Lira and Dr. Young Close follow-up with a hemoglobin hematocrit Bleeding scan ICU consult Would consider colonoscopy based on the clinical course however patient need to be optimized prior to that CHF ascites status post paracentesis in the past ejection fraction around 22%. Multiple comorbidities high risk patient 06/15/18 19:02
[2018-06-15] MEDS ORDERED: Sodium Chloride 0.9% 500 ML IV STA (17:10)
[2018-06-15 18:14] LABS: HEMOGLOBIN 7.3 g/dL (14.0-18.0); MEAN CELL VOLUME 91.4 fl (80.0-105.0); MEAN CORPUSCULAR HEMOGLOBIN 28.4 pg (25.0-35.0); MEAN CORPUSCULAR HGB CONC 31.1 g/dl (31.0-37.0); MEAN PLATELET VOLUME 9.1 fl (7.0-11.0); RBC 2.57 10^6/uL (3.5-6.1); RED CELL DISTRIBUTION WIDTH 16.2 % (11.5-14.5); WHITE BLOOD COUNT 6.9 10^3/uL (4.5-11.0)
[2018-06-15 18:17] LABS: VENOUS BLOOD GAS BASE EXCESS 5.6 mmol/L (0.0-2.0); VENOUS BLOOD GAS PO2 204 mm/Hg (30-55); VENOUS BLOOD PH 7.51 (7.32-7.43)
--- NOTE | 2018-06-15 20:14 | CON ---
DATE OF CONSULTATION: 06/15/2018 HISTORY OF PRESENT ILLNESS: This is a 67-year-old gentleman with history of recurrent GI bleed (he was scoped in in February of last year (3 months ago), which showed no clear-cut source of the bleeding, who presented this time with complaints of bright red blood per rectum that occurred early in the morning and coincided with near syncopal episode, lightheadedness and dizziness. The patient was brought to the hospital to seek medical attention for that. He denies passing out, chest pain, abdominal pain, nausea, vomiting, or diarrhea. No fever, no chills, no sweats. 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 SOCIAL HISTORY: No alcohol or illicit drug abuse. No tobacco smoking. FAMILY HISTORY: Noncontributory. REVIEW OF SYSTEMS: Review of 12-organ system other than mentioned in history of present illness is negative. PHYSICAL EXAMINATION: VITAL SIGNS: Blood pressure 99/45, heart rate 88, respiratory rate 14, oxygen saturation 100% on room air, and temperature 99.1. HEENT: Head and neck atraumatic. LUNGS: Clear to auscultation bilaterally. HEART: Regular rate and rhythm. S1 and S2 distant. ABDOMEN: Soft, nontender and nondistended. MUSCULOSKELETAL: No C/C/E. NEURO: The patient moves all extremities spontaneously. SKIN: Moist. PSYCH: The patient is alert, awake and oriented, appears to be comfortable. LABORATORY DATA: INR 1.45, PT 16.4, and PTT of 35.4 (the patient is not currently on any anticoagulation). WBC 7.9, hemoglobin 5.9, platelet count 181. Sodium 139, potassium 4.8, chloride 102, carbon dioxide 23, BUN 73, creatinine 9.1, AST 25, ALT 12, total bilirubin 0.5, albumin 3. MEDICATIONS AT HOME: Flomax, Renvela, Protonix, midodrine, Miles-In-Kristy, Lipitor, aspirin, amiodarone. MEDICATIONS IN THE HOSPITAL: Amiodarone, Lipitor, Miles-In-Kristy, midodrine, Protonix, Renagel, Flomax, vitamin D, vitamin C complex. Echocardiogram performed on 03/24/2018 showed left ventricular systolic function is moderately impaired, no pericardial effusion, right ventricle is moderately dilated with systolic function moderately reduced. Of note, there was found echogenic mobile threads like structures attached to AICD going from RA to RV, could be fibrin threads; however, clinical correlation was recommended. EKG did not show any specific ischemic changes. QRS, QTC, and ER, all slightly prolonged. ASSESSMENT AND PLAN: This is a 67-year-old gentleman, who presented to ICU with lower gastrointestinal bleed with suspected hemorrhagic shock. At present time, we will proceed with n.p.o. IV fluid, serial CBC, nuclear bleeding scan. We will transfuse 4 units of PRBC, 4 units of FFP. We will maintain platelet count above 100. I did speak with Dr. Watt about echo findings including fibrinous threads attached to AICD; however, based on our conversation, it appears that the risk of bleeding overweighs the risk of thrombosis; thus, FFP to prevent dilutional coagulopathy would be reasonable. We will get Cardiology, Gastrointestinal, Surgical Service consults. We will put two large-bore PIVs. We will get and trend troponin and lactic acid level as well. The patient will be admitted to ICU for further management and monitoring. The patient has just undergone hemodialysis, which is also supposed to improve platelet function. He had 2.7 liters removed prior (that was prior to ICU eval). We will avoid dilutional coagulopathy, hypothermia and acidosis (all of which may exacerbate bleeding). We will continue with mechanical deep venous thrombosis prophylaxis, gastrointestinal prophylaxis. The patient will be admitted to ICU for further management and monitoring. ccm time 40 min Fuad Bruner MD [facility]
[2018-06-15 23:11] LABS: VENOUS BLOOD GAS BASE EXCESS 4.5 mmol/L (0.0-2.0); VENOUS BLOOD GAS PO2 45 mm/Hg (30-55); VENOUS BLOOD PH 7.47 (7.32-7.43)
--- NOTE | 2018-06-15 23:38 | CP.PCM.CON ---
History of Present Illness - History of Present Illness History of Present Illness: Surgery Consult Note for Dr. Winter Consult: GI bleed 67 year old male with a PMH of dilated cardiomyopathy (EF 22%) s/p defibrillator, ESRD on HD MWF, DM2, Arthritis, HTN and Anemia of chronic disease/iron deficiency who is admitted with symptomatic anemia and bloody bowel movement. Patient states earlier today he was having a bowel movement and noticed a significant amount of bright red blood with bowel movement. He felt lightheaded and weak following the event. He has had history of BRBPR but this episode was worse. Patient reports dark stools on occasion attributed to iron supplementation. Patient gets dialysis and during today's session he also received 2 units of PRBCs before being transferred to the unit. He denies abdominal pain associated with the BM, and denies any weight loss. 12-pt ROS was reviewed and is otherwise unremarkable. Records indicate that patient had colonoscopy on 01/2018 that showed cecal AVMs s/p BiPol cautery with Dr. Redmond. He underwent EGD in 01/[address] Wynn that shown benign 3mm esophageal squamous papilloma, gastritis. Bone biopsy done 01/2018 to work up anemia showed anemia of chronic disease. The patient has history of multiple blood transfusions. PMH: See above PSH: LUE AVF, AICD, Right toe abscess I&D FH: Denies stomach cancer, colon cancer SH: social ETOH use, occasional cigar use, denies cigarette or illicit drug use ALL: NKDA Meds: See MAR Review of Systems - Constitutional Constitutional: Weakness. absent: Chills, Fever - EENT Eyes: absent: Blind Spots, Blurred Vision Nose/Mouth/Throat: absent: Nasal Congestion, Nasal Discharge - Cardiovascular Cardiovascular: absent: Chest Pain, Dyspnea - Respiratory Respiratory: absent: Cough, Dyspnea - Gastrointestinal Gastrointestinal: Melena, Temesmus. absent: Abdominal Pain, Change in Stool Character, Coffee Ground Emesis, Hematemesis, Nausea, Vomiting - Genitourinary Genitourinary: absent: Difficulty Urinating, Dysuria - Musculoskeletal Musculoskeletal: absent: Back Pain, Neck Pain - Integumentary Integumentary: absent: Bleeding Lesions, Changing Lesions - Neurological Neurological: absent: Dizziness, Numbness - Psychiatric Psychiatric: absent: Anxiety, Depression Past Patient History - Infectious Disease Hx of Infectious Diseases: None - Past Social History Smoking Status: Light Smoker < 10 Cigarettes Daily - CARDIAC Hx Cardiac Disorders: Yes Other/Comment: defibrilator - PULMONARY Hx Respiratory Disorders: Yes (SMOKES CIGARS OCCASIONALLY) - NEUROLOGICAL Hx Neurological Disorder: No - HEENT Hx HEENT Problems: No - RENAL Hx Dialysis: Yes (MWF) Hx Renal Failure: Yes - ENDOCRINE/METABOLIC Hx Diabetes Mellitus Type 2: Yes - HEMATOLOGICAL/ONCOLOGICAL Hx Blood Disorders: Yes Hx Anemia: Yes (BLOOD TRANSFUSION) - INTEGUMENTARY Hx Dermatological Problems: Yes Other/Comment: 02-16-18 BILATERAL LEG EDEMA +2 PITTING - MUSCULOSKELETAL/RHEUMATOLOGICAL Hx Musculoskeletal Disorders: Yes Hx Arthritis: Yes Hx Falls: Yes Hx Unsteady Gait: Yes (ROLLATOR) - GASTROINTESTINAL Hx Gastrointestinal Disorders: Yes (CONSTIPATION) Hx Gall Bladder Disease: Yes (GALLSTONES) - GENITOURINARY/GYNECOLOGICAL Hx Genitourinary Disorders: Yes (ANURIA) Hx Prostate Problems: Yes (BPH) - PSYCHIATRIC Hx Psychophysiologic Disorder: No Hx Substance Use: No - SURGICAL HISTORY Other/Comment: L AV shunt - ANESTHESIA Hx Anesthesia: Yes Hx Anesthesia Reactions: No Hx Malignant Hyperthermia: No Meds Allergies/Adverse Reactions: Allergies Allergy/AdvReac Type Severity Reaction Status Date / Time No Known Allergies Allergy Verified 04/11/18 11:42 - Medications Medications: Current Medications Amiodarone HCl (Cordarone) 200 mg PO DAILY [facility] Atorvastatin Calcium (Lipitor) 40 mg PO DIN [facility] Last Admin: 06/15/18 22:35 Dose: 40 mg Ferrous Sulfate (Feosol) 324 mg PO TID [facility] Last Admin: 06/15/18 22:35 Dose: 324 mg Midodrine (Proamatine) 5 mg PO 0800,1200,1600 [facility] Pantoprazole Sodium (Protonix Inj) 40 mg IVP DAILY [facility] Sevelamer HCl (Renagel) 1 mg PO BID [facility] Tamsulosin HCl (Flomax) 0.4 mg PO DAILY [facility] Vitamin B Complex/Vit C/Folic Acid (Nephro-Tyson) 1 tab PO DAILY [facility] Physical Exam - Constitutional Appears: Well, Non-toxic, No Acute Distress - Head Exam Head Exam: ATRAUMATIC, NORMAL INSPECTION, NORMOCEPHALIC - Eye Exam Eye Exam: EOMI - ENT Exam ENT Exam: Mucous Membranes Moist - Respiratory Exam Respiratory Exam: NORMAL BREATHING PATTERN. absent: Wheezes, Respiratory Distress - Cardiovascular Exam Cardiovascular Exam: REGULAR RHYTHM, +S1, +S2. absent: Tachycardia, Systolic Murmur - GI/Abdominal Exam GI & Abdominal Exam: Normal Bowel Sounds, Soft. absent: Distended, Guarding, Rebound, Tenderness - Rectal Exam Rectal Exam: Bloody Stool - Extremities Exam Extremities exam: Positive for: normal inspection, pedal edema, pedal pulses present - Back Exam Back exam: absent: CVA tenderness (L), CVA tenderness (R) - Neurological Exam Neurological exam: Alert, Oriented x3 - Psychiatric Exam Psychiatric exam: Normal Affect, Normal Mood - Skin Skin Exam: Dry, Intact, Normal Color, Warm Results - Vital Signs Recent Vital Signs: Last Vital Signs Temp 98.5 F 06/15/18 22:45 Pulse 74 06/15/18 22:45 Resp 12 06/15/18 22:45 BP 99/54 L 06/15/18 22:45 Pulse Ox 100 06/15/18 13:12 - Labs Result Diagrams: 06/15/18 18:05 06/15/18 11:00 Labs: Laboratory Results - last 24 hr 06/15/18 06/15/18 06/15/18 11:00 11:00 11:00 WBC 7.9 RBC 2.08 L Hgb 5.9 L* Hct 19.6 L* MCV 94.2 D MCH 28.4 MCHC 30.1 L RDW 16.8 H Plt Count 181 MPV 9.5 Neut % (Auto) 82.1 H Lymph % (Auto) 5.9 L [place] % (Auto) 9.7 H Eos % (Auto) 2.0 Baso % (Auto) 0.3 Lymph # (Auto) 0.5 L [place] # (Auto) 0.8 H Eos # (Auto) 0.2 Baso # (Auto) 0.02 Absolute Neuts (auto) 6.48 PT 16.4 H INR 1.45 APTT 35.4 pO2 VBG pH VBG pCO2 VBG HCO3 VBG Total CO2 VBG O2 Sat (Calc) VBG Base Excess VBG Potassium Glucose Lactate FiO2 Sodium 139 Potassium 4.8 Chloride 102 Carbon Dioxide 23 Anion Gap 19 BUN 73 H Creatinine 9.1 H* D Est GFR ( Amer) 7 Est GFR (Non-Af Amer) 6 Random Glucose 150 H Calcium 8.2 L Total Bilirubin 0.5 AST 25 ALT 12 Alkaline Phosphatase 116 Troponin I Total Protein 6.6 Albumin 3.0 Globulin 3.6 Albumin/Globulin Ratio 0.8 L Venous Blood Potassium Blood Type Antibody Screen Crossmatch BBK History Checked 06/15/18 06/15/18 06/15/18 11:00 18:05 18:05 WBC 6.9 RBC 2.57 L Hgb 7.3 L Hct 23.5 L MCV 91.4 MCH 28.4 MCHC 31.1 RDW 16.2 H Plt Count 174 MPV 9.1 Neut % (Auto) Lymph % (Auto) [place] % (Auto) Eos % (Auto) Baso % (Auto) Lymph # (Auto) [place] # (Auto) Eos # (Auto) Baso # (Auto) Absolute Neuts (auto) PT INR APTT pO2 204 H VBG pH 7.51 H VBG pCO2 36.0 L VBG HCO3 28.7 H VBG Total CO2 29.8 H VBG O2 Sat (Calc) 97.3 H VBG Base Excess 5.6 H VBG Potassium 3.2 L Glucose 106 Lactate 0.9 FiO2 21.0 Sodium 139.0 Potassium Chloride 106.0 Carbon Dioxide Anion Gap BUN Creatinine Est GFR ( Amer) Est GFR (Non-Af Amer) Random Glucose Calcium Total Bilirubin AST ALT Alkaline Phosphatase Troponin I Total Protein Albumin Globulin Albumin/Globulin Ratio Venous Blood Potassium 3.2 L Blood Type A POSITIVE Antibody Screen Negative Crossmatch See Detail BBK History Checked Patient has bt 06/15/18 06/15/18 18:05 23:00 WBC RBC Hgb Hct MCV MCH MCHC RDW Plt Count MPV Neut % (Auto) Lymph % (Auto) [place] % (Auto) Eos % (Auto) Baso % (Auto) Lymph # (Auto) [place] # (Auto) Eos # (Auto) Baso # (Auto) Absolute Neuts (auto) PT INR APTT pO2 45 VBG pH 7.47 H VBG pCO2 39.0 L VBG HCO3 28.4 H VBG Total CO2 29.6 H VBG O2 Sat (Calc) 86.4 H VBG Base Excess 4.5 H VBG Potassium 4.2 Glucose 97 Lactate 1.2 FiO2 21.0 Sodium 139.0 Potassium Chloride 106.0 Carbon Dioxide Anion Gap BUN Creatinine Est GFR ( Amer) Est GFR (Non-Af Amer) Random Glucose Calcium Total Bilirubin AST ALT Alkaline Phosphatase Troponin I 0.09 D Total Protein Albumin Globulin Albumin/Globulin Ratio Venous Blood Potassium 4.2 Blood Type Antibody Screen Crossmatch BBK History Checked Assessment & Plan - Assessment and Plan (Free Text) Assessment: 67M w/ acute GI bleed s/p [id number] Plan: Patient has history of cecal AVMs with prior GI intervention done Once patient medically optimized patient to go for colonoscopy F/u further GI recommendations NPO Monitor H/H q6H Tranfuse < 8 Monitor vitals and hemodynamic stability Monitor bowel movements Patient also found to have microcytic anemia - recently had full anemia work up and likely 2/2 anemia of chronic disease Further recommendations per Dr. Moy Haywood PGY1
--- NOTE | 2018-06-16 00:36 | CON ---
DATE OF CONSULTATION: 06/15/2018 REASON FOR CONSULTATION: Severe anemia, rectal bleeding, ESRD. HISTORY OF PRESENT ILLNESS: A 67-year-old male, well known to me from outpatient hemodialysis. The patient presented to the emergency room with complaints of rectal bleeding this morning. The patient reports that he woke up, and he had a large bowel movement with a large amount of bright red blood mixed with a loose stool. He denies any chest pain. He denies any palpitations. He c/o some shortness of breath. C/o some fatigue. He came to the emergency room because he was concerned about the bleeding. In the emergency room and found to have a hemoglobin of 5.9. The patient does have a history of severe anemia in the past. The patient has had a colonoscopy as outpatient late last year. No obvious source of bleeding was found. He was also found to have endocarditis. He was treated with IV antibiotics for this week. He is currently hypotensive. His blood pressure is 88/42 with the heart rate of 88, respiratory rate is 20, temperature is 98.4. His hemoglobin is 5.9, potassium is controlled at 4.8. 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 FAMILY HISTORY: Noncontributory. SOCIAL HISTORY: No smoking, no alcohol use, no IV drug abuse. ALLERGIES: NO KNOWN DRUG ALLERGIES. MEDICATIONS AT HOME: Flomax, sevelamer, Protonix, midodrine 5 t.i.d., Feosol, Lipitor, aspirin, amiodarone. REVIEW OF SYSTEMS: All systems are reviewed, pertinent positives as mentioned in the history of presenting illness, rest unremarkable. PHYSICAL EXAMINATION: GENERAL EVALUATION: Elderly male, lying in bed in the ICU, in no acute distress at this time. VITAL SIGNS: Blood pressure 99/55, heart rate 88, respiratory rate 14, temperature 99.1. HEENT: Normocephalic, atraumatic, positive pallor. NECK: Supple, no JVD. LUNGS: Bilateral equal entry, bilateral equal expansion. CARDIAC: S1 and S2, regular rate and rhythm, no murmur, no rub. ABDOMEN: Soft, nondistended, nontender, bowel sounds are present. EXTREMITIES: No lower extremity edema. INTAKE AND OUTPUT: Not charted. LABORATORY DATA: WBC 7.9, hemoglobin 5.9, hematocrit 19.6, platelets 181. Sodium 139, potassium 4.8, chloride 102, CO2 of 23, BUN 73, creatinine 9.1, glucose 150, calcium 8.2, AST 25, ALT 12, albumin 3. VBG, pH 7.5, pO2 of 205, INR 1.4. CURRENT MEDICATIONS: Cordarone 200, Flomax 0.4, Lipitor 40, Nephro-Tyson, ProAmatine 5 t.i.d., Protonix, sevelamer ASSESSMENT: 1. Severe life-threatening anemia, hemoglobin of 5.9, with rectal bleeding. 2. History of coronary artery disease. 3. Yox-mfgwnfu-dffyddywn diabetes mellitus. 4. History of hypertension. 5. End-stage renal disease. 6. Chronic hypotension. PLAN: 1. Dialysis today, transfuse 2 units of blood during dialysis. Monitor H and H closely. 2. Agree with monitoring in the ICU. 3. Require more blood transfusion. 4. Agree with plan for colonoscopy. 5. Hold antihypertensives. 6. Continue ProAmatine. 7. Discussed with Dr. Wynn, discussed with Dr. Diane, discussed with the patient at bedside at length. More than 35 minutes were spent in the care of this critically ill patient. Grecia Young MD [facility]
[2018-06-16 06:43] LABS: VENOUS BLOOD GAS BASE EXCESS 3.3 mmol/L (0.0-2.0); VENOUS BLOOD GAS PO2 166 mm/Hg (30-55); VENOUS BLOOD PH 7.44 (7.32-7.43)
[2018-06-16 06:48] LABS: BASO # 0.04 K/mm3 (0.0-2.0); BASO % 0.7 % (0.0-3.0); EOS # 0.2 (0.0-0.7); EOS % 4.3 % (1.5-5.0); LYMPH # 1.2 (1.2-3.4); LYMPH % 20.8 % (22.0-35.0); MEAN CORPUSCULAR HEMOGLOBIN 29.9 pg (25.0-35.0); MEAN CORPUSCULAR HGB CONC 32.8 g/dl (31.0-37.0); MEAN PLATELET VOLUME 9.4 fl (7.0-11.0); MONO # 0.4 (0.1-0.6); MONO % 7.7 % (1.0-6.0); RBC 2.24 10^6/uL (3.5-6.1); RED CELL DISTRIBUTION WIDTH 16.4 % (11.5-14.5); WHITE BLOOD COUNT 5.6 10^3/uL (4.5-11.0)
[2018-06-16 06:50] LABS: HEMOGLOBIN 6.7 g/dL (14.0-18.0)
[2018-06-16 07:03] LABS: CALCIUM 8.1 mg/dL (8.4-10.5)
--- NOTE | 2018-06-16 07:04 | CP.CCUPN ---
<Albert Zavala - Last Filed: 06/16/18 15:45> CCU Subjective - Physician Review Events Since Last Encounter (Free Text): 06/16/18 06:58 Pt has received blood products and FFP, reports 2 episodes of BRBPR since arrival Subjective (Free Text): 06/16/18 06:59 Pt seen and examined in the ICU, reports 2 episodes of BRBPR since arrival, reports daily ASA use. Denies chest pain, SOB, lightheadedness. CCU Objective - Vital Signs / Intake & Output Vital Signs (Last 4 hours): Vital Signs Temp Pulse Resp BP Pulse Ox 06/16/18 05:15 73 13 116/42 L 100 06/16/18 05:10 67 12 100 06/16/18 05:02 67 12 93/51 L 100 06/16/18 05:00 66 10 L 88/50 L 100 06/16/18 04:50 66 10 L 100 06/16/18 04:45 98/51 L 100 06/16/18 04:40 65 11 L 100 06/16/18 04:30 11 L 96/49 L 100 06/16/18 04:26 68 12 94/51 L 100 06/16/18 04:20 66 12 100 06/16/18 04:15 14 103/52 L 100 06/16/18 04:10 66 11 L 100 06/16/18 04:00 67 12 97/54 L 100 06/16/18 03:50 20 100 06/16/18 03:45 67 12 96/52 L 100 06/16/18 03:40 67 11 L 100 06/16/18 03:30 67 11 L 91/48 L 100 06/16/18 03:20 100 06/16/18 03:15 70 13 90/53 L 100 06/16/18 03:10 68 12 100 06/16/18 03:00 98.5 F 69 15 96/53 L 100 06/16/18 02:59 98.5 F 69 15 93/51 L Intake and Output (Last 8hrs): Intake & Output 06/15/18 06/15/18 06/16/18 14:59 22:59 06:59 Intake Total 0 0 3168 Output Total 400 Balance 0 0 2768 Weight 205 lb 182 lb 9.6 oz Intake: IV 1259 Right Wrist 1259 Blood Product 0 0 1909 Red Blood Cells Cpd As1 0 Lr Unit [id number] Red Blood Cells Cpd As1 0 325 Lr Unit [id number] Red Blood Cells Cpd As1 325 Lr Unit [id number] Other 0 Red Blood Cells Cpd As1 0 Lr Unit [id number] Output: Stool 400 - Physical Exam Physical Exam Limitations: Negative for: Altered Mental Status Head: Positive for: Atraumatic, Normocephalic Pupils: Positive for: PERRL Extroacular Muscles: Positive for: EOMI Conjunctiva: Positive for: Normal Mouth: Positive for: Moist Mucous Membranes Neck: Positive for: Normal Range of Motion Respiratory/Chest: Positive for: Clear to Auscultation, Good Air Exchange. Negative for: Respiratory Distress, Accessory Muscle Use Cardiovascular: Positive for: Regular Rate and Rhythm, Normal S1, S2. Negative for: Murmurs Abdomen: Negative for: Tenderness, Distention, Peritoneal Signs Rectal: Positive for: Occult Blood (bright red blood ) Back: Positive for: Normal Inspection Upper Extremity: Positive for: Normal Inspection, Other (left AV fistula). Negative for: Cyanosis, Edema Lower Extremity: Positive for: Normal Inspection. Negative for: Edema Neurological: Positive for: GCS=15, CN II-XII Intact, Speech Normal Skin: Positive for: Warm, Dry, Normal Color. Negative for: Rashes Psychiatric: Positive for: Alert, Oriented x 3, Normal Insight, Normal Concentration - Medications Active Medications: Active Medications Generic Name Dose Route Start Last Admin Trade Name Freq PRN Reason Stop Dose Admin Amiodarone HCl 200 mg 06/16/18 10:00 Cordarone PO DAILY [facility] Atorvastatin Calcium 40 mg 06/15/18 17:00 06/15/18 22:35 Lipitor PO 40 mg DIN [facility] Administration Ferrous Sulfate 324 mg 06/15/18 14:00 06/15/18 22:35 Feosol PO 324 mg TID [facility] Administration Midodrine 5 mg 06/15/18 16:00 Proamatine PO 0800,1200,1600 [facility] Pantoprazole Sodium 40 mg 06/16/18 10:00 Protonix Inj IVP DAILY [facility] Sevelamer HCl 1 mg 06/15/18 18:00 Renagel PO BID [facility] Tamsulosin HCl 0.4 mg 06/16/18 10:00 Flomax PO DAILY [facility] Vitamin B Complex/Vit C/Folic Acid 1 tab 06/16/18 10:00 Nephro-Tyson PO DAILY [facility] - Patient Studies Lab Studies: Lab Studies 06/16/18 06/16/18 06/15/18 Range/Units 06:24 06:24 23:00 WBC 5.6 (4.5-11.0) 10^3/uL RBC 2.24 L (3.5-6.1) 10^6/uL Hgb 6.7 L* (14.0-18.0) g/dL Hct 20.4 L* (42.0-52.0) % MCV 91.1 (80.0-105.0) fl MCH 29.9 (25.0-35.0) pg MCHC 32.8 (31.0-37.0) g/dl RDW 16.4 H (11.5-14.5) % Plt Count 147 (120.0-450.0) 10^3/uL MPV 9.4 (7.0-11.0) fl Neut % (Auto) 66.5 (50.0-68.0) % Lymph % (Auto) 20.8 L (22.0-35.0) % [place] % (Auto) 7.7 H (1.0-6.0) % Eos % (Auto) 4.3 (1.5-5.0) % Baso % (Auto) 0.7 (0.0-3.0) % Lymph # (Auto) 1.2 (1.2-3.4) [place] # (Auto) 0.4 (0.1-0.6) Eos # (Auto) 0.2 (0.0-0.7) Baso # (Auto) 0.04 (0.0-2.0) K/mm3 Absolute Neuts (auto) 3.72 (1.4-6.5) PT (9.4-12.5) SECONDS INR APTT (26.9-38.3) Seconds pO2 166 H 45 (30-55) mm/Hg VBG pH 7.44 H 7.47 H (7.32-7.43) VBG pCO2 41.0 39.0 L (40-60) VBG HCO3 27.8 28.4 H (21-28) mmol/l VBG Total CO2 29.1 H 29.6 H (22-28) mmol.L VBG O2 Sat (Calc) 97.9 H 86.4 H (40-65) % VBG Base Excess 3.3 H 4.5 H (0.0-2.0) mmol/L VBG Potassium 4.6 4.2 (3.6-5.2) mmol/L Glucose 108 97 (75-110) mg/dl Lactate 1.3 1.2 (0.7-2.1) mmol/L FiO2 21.0 21.0 % Sodium 138.0 139.0 (132-148) mmol/L Potassium (3.6-5.0) mmol/L Chloride 107.0 106.0 (98-107) mmol/L Carbon Dioxide (21-33) mmol/L Anion Gap (10-20) BUN (7-21) mg/dL Creatinine (0.8-1.5) mg/dl Est GFR ( Amer) Est GFR (Non-Af Amer) Random Glucose (70-110) mg/dL Calcium (8.4-10.5) mg/dL Total Bilirubin (0.2-1.3) mg/dL AST (17-59) U/L ALT (7-56) U/L Alkaline Phosphatase (38-126) U/L Troponin I ng/mL Total Protein (5.8-8.3) g/dL Albumin (3.0-4.8) g/dL Globulin gm/dL Albumin/Globulin Ratio (1.1-1.8) Venous Blood Potassium 4.6 4.2 (3.6-5.2) mmol/L Blood Type Antibody Screen Crossmatch BBK History Checked 06/15/18 06/15/18 06/15/18 Range/Units 18:05 18:05 18:05 WBC 6.9 (4.5-11.0) 10^3/uL RBC 2.57 L (3.5-6.1) 10^6/uL Hgb 7.3 L (14.0-18.0) g/dL Hct 23.5 L (42.0-52.0) % MCV 91.4 (80.0-105.0) fl MCH 28.4 (25.0-35.0) pg MCHC 31.1 (31.0-37.0) g/dl RDW 16.2 H (11.5-14.5) % Plt Count 174 (120.0-450.0) 10^3/uL MPV 9.1 (7.0-11.0) fl Neut % (Auto) (50.0-68.0) % Lymph % (Auto) (22.0-35.0) % [place] % (Auto) (1.0-6.0) % Eos % (Auto) (1.5-5.0) % Baso % (Auto) (0.0-3.0) % Lymph # (Auto) (1.2-3.4) [place] # (Auto) (0.1-0.6) Eos # (Auto) (0.0-0.7) Baso # (Auto) (0.0-2.0) K/mm3 Absolute Neuts (auto) (1.4-6.5) PT (9.4-12.5) SECONDS INR APTT (26.9-38.3) Seconds pO2 204 H (30-55) mm/Hg VBG pH 7.51 H (7.32-7.43) VBG pCO2 36.0 L (40-60) VBG HCO3 28.7 H (21-28) mmol/l VBG Total CO2 29.8 H (22-28) mmol.L VBG O2 Sat (Calc) 97.3 H (40-65) % VBG Base Excess 5.6 H (0.0-2.0) mmol/L VBG Potassium 3.2 L (3.6-5.2) mmol/L Glucose 106 (75-110) mg/dl Lactate 0.9 (0.7-2.1) mmol/L FiO2 21.0 % Sodium 139.0 (132-148) mmol/L Potassium (3.6-5.0) mmol/L Chloride 106.0 (98-107) mmol/L Carbon Dioxide (21-33) mmol/L Anion Gap (10-20) BUN (7-21) mg/dL Creatinine (0.8-1.5) mg/dl Est GFR ( Amer) Est GFR (Non-Af Amer) Random Glucose (70-110) mg/dL Calcium (8.4-10.5) mg/dL Total Bilirubin (0.2-1.3) mg/dL AST (17-59) U/L ALT (7-56) U/L Alkaline Phosphatase (38-126) U/L Troponin I 0.09 D ng/mL Total Protein (5.8-8.3) g/dL Albumin (3.0-4.8) g/dL Globulin gm/dL Albumin/Globulin Ratio (1.1-1.8) Venous Blood Potassium 3.2 L (3.6-5.2) mmol/L Blood Type Antibody Screen Crossmatch BBK History Checked 06/15/18 06/15/18 06/15/18 Range/Units 11:00 11:00 11:00 WBC (4.5-11.0) 10^3/uL RBC (3.5-6.1) 10^6/uL Hgb (14.0-18.0) g/dL Hct (42.0-52.0) % MCV (80.0-105.0) fl MCH (25.0-35.0) pg MCHC (31.0-37.0) g/dl RDW (11.5-14.5) % Plt Count (120.0-450.0) 10^3/uL MPV (7.0-11.0) fl Neut % (Auto) (50.0-68.0) % Lymph % (Auto) (22.0-35.0) % [place] % (Auto) (1.0-6.0) % Eos % (Auto) (1.5-5.0) % Baso % (Auto) (0.0-3.0) % Lymph # (Auto) (1.2-3.4) [place] # (Auto) (0.1-0.6) Eos # (Auto) (0.0-0.7) Baso # (Auto) (0.0-2.0) K/mm3 Absolute Neuts (auto) (1.4-6.5) PT 16.4 H (9.4-12.5) SECONDS INR 1.45 APTT 35.4 (26.9-38.3) Seconds pO2 (30-55) mm/Hg VBG pH (7.32-7.43) VBG pCO2 (40-60) VBG HCO3 (21-28) mmol/l VBG Total CO2 (22-28) mmol.L VBG O2 Sat (Calc) (40-65) % VBG Base Excess (0.0-2.0) mmol/L VBG Potassium (3.6-5.2) mmol/L Glucose (75-110) mg/dl Lactate (0.7-2.1) mmol/L FiO2 % Sodium 139 (132-148) mmol/L Potassium 4.8 (3.6-5.0) mmol/L Chloride 102 (98-107) mmol/L Carbon Dioxide 23 (21-33) mmol/L Anion Gap 19 (10-20) BUN 73 H (7-21) mg/dL Creatinine 9.1 H* D (0.8-1.5) mg/dl Est GFR ( Amer) 7 Est GFR (Non-Af Amer) 6 Random Glucose 150 H (70-110) mg/dL Calcium 8.2 L (8.4-10.5) mg/dL Total Bilirubin 0.5 (0.2-1.3) mg/dL AST 25 (17-59) U/L ALT 12 (7-56) U/L Alkaline Phosphatase 116 (38-126) U/L Troponin I ng/mL Total Protein 6.6 (5.8-8.3) g/dL Albumin 3.0 (3.0-4.8) g/dL Globulin 3.6 gm/dL Albumin/Globulin Ratio 0.8 L (1.1-1.8) Venous Blood Potassium (3.6-5.2) mmol/L Blood Type A POSITIVE Antibody Screen Negative Crossmatch See Detail BBK History Checked Patient has bt 06/15/18 Range/Units 11:00 WBC 7.9 (4.5-11.0) 10^3/uL RBC 2.08 L (3.5-6.1) 10^6/uL Hgb 5.9 L* (14.0-18.0) g/dL Hct 19.6 L* (42.0-52.0) % MCV 94.2 D (80.0-105.0) fl MCH 28.4 (25.0-35.0) pg MCHC 30.1 L (31.0-37.0) g/dl RDW 16.8 H (11.5-14.5) % Plt Count 181 (120.0-450.0) 10^3/uL MPV 9.5 (7.0-11.0) fl Neut % (Auto) 82.1 H (50.0-68.0) % Lymph % (Auto) 5.9 L (22.0-35.0) % [place] % (Auto) 9.7 H (1.0-6.0) % Eos % (Auto) 2.0 (1.5-5.0) % Baso % (Auto) 0.3 (0.0-3.0) % Lymph # (Auto) 0.5 L (1.2-3.4) [place] # (Auto) 0.8 H (0.1-0.6) Eos # (Auto) 0.2 (0.0-0.7) Baso # (Auto) 0.02 (0.0-2.0) K/mm3 Absolute Neuts (auto) 6.48 (1.4-6.5) PT (9.4-12.5) SECONDS INR APTT (26.9-38.3) Seconds pO2 (30-55) mm/Hg VBG pH (7.32-7.43) VBG pCO2 (40-60) VBG HCO3 (21-28) mmol/l VBG Total CO2 (22-28) mmol.L VBG O2 Sat (Calc) (40-65) % VBG Base Excess (0.0-2.0) mmol/L VBG Potassium (3.6-5.2) mmol/L Glucose (75-110) mg/dl Lactate (0.7-2.1) mmol/L FiO2 % Sodium (132-148) mmol/L Potassium (3.6-5.0) mmol/L Chloride (98-107) mmol/L Carbon Dioxide (21-33) mmol/L Anion Gap (10-20) BUN (7-21) mg/dL Creatinine (0.8-1.5) mg/dl Est GFR ( Amer) Est GFR (Non-Af Amer) Random Glucose (70-110) mg/dL Calcium (8.4-10.5) mg/dL Total Bilirubin (0.2-1.3) mg/dL AST (17-59) U/L ALT (7-56) U/L Alkaline Phosphatase (38-126) U/L Troponin I ng/mL Total Protein (5.8-8.3) g/dL Albumin (3.0-4.8) g/dL Globulin gm/dL Albumin/Globulin Ratio (1.1-1.8) Venous Blood Potassium (3.6-5.2) mmol/L Blood Type Antibody Screen Crossmatch BBK History Checked Laboratory Results - last 24 hr 06/15/18 06/15/18 06/15/18 11:00 11:00 11:00 WBC 7.9 RBC 2.08 L Hgb 5.9 L* Hct 19.6 L* MCV 94.2 D MCH 28.4 MCHC 30.1 L RDW 16.8 H Plt Count 181 MPV 9.5 Neut % (Auto) 82.1 H Lymph % (Auto) 5.9 L [place] % (Auto) 9.7 H Eos % (Auto) 2.0 Baso % (Auto) 0.3 Lymph # (Auto) 0.5 L [place] # (Auto) 0.8 H Eos # (Auto) 0.2 Baso # (Auto) 0.02 Absolute Neuts (auto) 6.48 PT 16.4 H INR 1.45 APTT 35.4 pO2 VBG pH VBG pCO2 VBG HCO3 VBG Total CO2 VBG O2 Sat (Calc) VBG Base Excess VBG Potassium Glucose Lactate FiO2 Sodium 139 Potassium 4.8 Chloride 102 Carbon Dioxide 23 Anion Gap 19 BUN 73 H Creatinine 9.1 H* D Est GFR ( Amer) 7 Est GFR (Non-Af Amer) 6 Random Glucose 150 H Calcium 8.2 L Total Bilirubin 0.5 AST 25 ALT 12 Alkaline Phosphatase 116 Troponin I Total Protein 6.6 Albumin 3.0 Globulin 3.6 Albumin/Globulin Ratio 0.8 L Venous Blood Potassium Blood Type Antibody Screen Crossmatch BBK History Checked 06/15/18 06/15/18 06/15/18 11:00 18:05 18:05 WBC 6.9 RBC 2.57 L Hgb 7.3 L Hct 23.5 L MCV 91.4 MCH 28.4 MCHC 31.1 RDW 16.2 H Plt Count 174 MPV 9.1 Neut % (Auto) Lymph % (Auto) [place] % (Auto) Eos % (Auto) Baso % (Auto) Lymph # (Auto) [place] # (Auto) Eos # (Auto) Baso # (Auto) Absolute Neuts (auto) PT INR APTT pO2 204 H VBG pH 7.51 H VBG pCO2 36.0 L VBG HCO3 28.7 H VBG Total CO2 29.8 H VBG O2 Sat (Calc) 97.3 H VBG Base Excess 5.6 H VBG Potassium 3.2 L Glucose 106 Lactate 0.9 FiO2 21.0 Sodium 139.0 Potassium Chloride 106.0 Carbon Dioxide Anion Gap BUN Creatinine Est GFR ( Amer) Est GFR (Non-Af Amer) Random Glucose Calcium Total Bilirubin AST ALT Alkaline Phosphatase Troponin I Total Protein Albumin Globulin Albumin/Globulin Ratio Venous Blood Potassium 3.2 L Blood Type A POSITIVE Antibody Screen Negative Crossmatch See Detail BBK History Checked Patient has bt 06/15/18 06/15/18 06/16/18 18:05 23:00 06:24 WBC 5.6 RBC 2.24 L Hgb 6.7 L* Hct 20.4 L* MCV 91.1 MCH 29.9 MCHC 32.8 RDW 16.4 H Plt Count 147 MPV 9.4 Neut % (Auto) 66.5 Lymph % (Auto) 20.8 L [place] % (Auto) 7.7 H Eos % (Auto) 4.3 Baso % (Auto) 0.7 Lymph # (Auto) 1.2 [place] # (Auto) 0.4 Eos # (Auto) 0.2 Baso # (Auto) 0.04 Absolute Neuts (auto) 3.72 PT INR APTT pO2 45 VBG pH 7.47 H VBG pCO2 39.0 L VBG HCO3 28.4 H VBG Total CO2 29.6 H VBG O2 Sat (Calc) 86.4 H VBG Base Excess 4.5 H VBG Potassium 4.2 Glucose 97 Lactate 1.2 FiO2 21.0 Sodium 139.0 Potassium Chloride 106.0 Carbon Dioxide Anion Gap BUN Creatinine Est GFR ( Amer) Est GFR (Non-Af Amer) Random Glucose Calcium Total Bilirubin AST ALT Alkaline Phosphatase Troponin I 0.09 D Total Protein Albumin Globulin Albumin/Globulin Ratio Venous Blood Potassium 4.2 Blood Type Antibody Screen Crossmatch BBK History Checked 06/16/18 06:24 WBC RBC Hgb Hct MCV MCH MCHC RDW Plt Count MPV Neut % (Auto) Lymph % (Auto) [place] % (Auto) Eos % (Auto) Baso % (Auto) Lymph # (Auto) [place] # (Auto) Eos # (Auto) Baso # (Auto) Absolute Neuts (auto) PT INR APTT pO2 166 H VBG pH 7.44 H VBG pCO2 41.0 VBG HCO3 27.8 VBG Total CO2 29.1 H VBG O2 Sat (Calc) 97.9 H VBG Base Excess 3.3 H VBG Potassium 4.6 Glucose 108 Lactate 1.3 FiO2 21.0 Sodium 138.0 Potassium Chloride 107.0 Carbon Dioxide Anion Gap BUN Creatinine Est GFR ( Amer) Est GFR (Non-Af Amer) Random Glucose Calcium Total Bilirubin AST ALT Alkaline Phosphatase Troponin I Total Protein Albumin Globulin Albumin/Globulin Ratio Venous Blood Potassium 4.6 Blood Type Antibody Screen Crossmatch BBK History Checked EKG/Cardiology Studies: Cardiology / EKG Studies 06/15/18 10:55 EKG [ELECTROCARDIOGRAM] Stat Comment: Reason For Exam: BLOOD IN STOOL Critical Care Progress Note - Nutrition Nutrition: Nutrition Category Date Time Status NPO Diet [DIET] Diets 06/16/18 Breakfast Ordered Assessment/Plan - Assessment and Plan (Free Text) Assessment: Pt is a 67 yo male with a PMH of dilated cardiomyopathy, ESRD on HD, DM, HTN, arthritis, and anemia who presented to the ED complaining of dizziness and 1 episode of BRBPR prior to arrival. Plan: Neuro - AOx3 - continue to monitor mental status Cardio - dilated cardiomyopathy EF 20% with defibrillator - HTN - RRR, normotensive - trop negative - amiodarone, lipitor, midodrine - Cardo consulted, Dr Watt Pul - maintain O2>92% GI - GI bleed - history of AVM - Hgb 5.9 to 7.3 to 6.7 - pt has received 4 units pRBC, and 3 FFP - INR 1.45 - CBC q6 - pantoprazole 40mg IVP daily - GI bleeding scan - NPO - GI consulted, Dr Wynn, pt will have colonoscopy later today, start nulytely today - Surgery consulted, Dr Winter Renal/ - ESRD on HD, MWF - continue to monitor electrolytes - pt had 2.7 liter taken off during dialysis yesterday - BUN 43, Cr 5.3 - flomax, renagel - Nephro consulted, Dr Young ID - no leukocytosis Heme - Anemia of chronic disease - pt reports daily ASA use, hold at this time - ferrous sulfate Endocrine - DM - accuchecks Pt seen, examined, assessment and plan discussed with Dr Levar Zavala PGY1 - Date & Time Date: 06/16/18 Time: 07:10 <Levar Gayle - Last Filed: 06/16/18 17:05> CCU Objective - Vital Signs / Intake & Output Vital Signs (Last 4 hours): Vital Signs Temp Pulse Resp BP 06/16/18 15:57 98.1 F 68 18 114/64 06/16/18 14:00 65 Intake and Output (Last 8hrs): Intake & Output 06/16/18 06/16/18 06/16/18 06:59 14:59 22:59 Intake Total 3168 355 5095 Output Total 400 1000 Balance 2768 355 4095 Weight 82.826 kg Intake: IV 1259 740 Right Wrist 1259 740 Oral 4000 Blood Product 1909 325 325 Red Blood Cells Cpd As1 325 Lr Unit [id number] Red Blood Cells Cpd As1 325 Lr Unit [id number] Red Blood Cells Cpd As1 0 325 Lr Unit [id number] Red Blood Cells Cpd As1 325 Lr Unit [id number] Other 30 30 Red Blood Cells Cpd As1 30 Lr Unit [id number] Red Blood Cells Cpd As1 30 Lr Unit [id number] Output: Stool 400 1000 - Medications Active Medications: Active Medications Generic Name Dose Route Start Last Admin Trade Name Pepitoq PRN Reason Stop Dose Admin Amiodarone HCl 200 mg 06/16/18 10:00 06/16/18 09:34 Cordarone PO 200 mg DAILY JAVIER Administration Atorvastatin Calcium 40 mg 06/15/18 17:00 06/15/18 22:35 Lipitor PO 40 mg DIN JAVIER Administration Ferrous Sulfate 324 mg 06/15/18 14:00 06/16/18 14:36 Feosol PO 324 mg TID JAVIER Administration Midodrine 5 mg 06/16/18 12:00 Proamatine PO 0800,1200,1600 JAVIER Pantoprazole Sodium 40 mg 06/16/18 10:00 06/16/18 09:32 Protonix Inj IVP 40 mg DAILY JAVIER Administration Sevelamer HCl 800 mg 06/16/18 09:43 Renagel PO BID JAVIER Tamsulosin HCl 0.4 mg 06/16/18 10:00 06/16/18 09:35 Flomax PO 0.4 mg DAILY JAVIER Administration Vitamin B Complex/Vit C/Folic Acid 1 tab 06/16/18 10:00 06/16/18 09:35 Nephro-Tyson PO 1 tab DAILY JAVIER Administration - Patient Studies Lab Studies: Microbiology Studies 06/15/18 18:25 MRSA Culture (Admit) - Final Naris MRSA NOT DETECTED Lab Studies 06/16/18 06/16/18 06/16/18 Range/Units 16:45 12:30 12:30 WBC 6.4 7.1 D (4.5-11.0) 10^3/uL RBC 2.78 L 2.56 L (3.5-6.1) 10^6/uL Hgb 8.1 L 7.5 L (14.0-18.0) g/dL Hct 25.4 L 23.5 L (42.0-52.0) % MCV 91.4 91.8 (80.0-105.0) fl MCH 29.1 29.3 (25.0-35.0) pg MCHC 31.9 31.9 (31.0-37.0) g/dl RDW 16.1 H 16.2 H (11.5-14.5) % Plt Count 138 148 (120.0-450.0) 10^3/uL MPV 9.0 9.6 (7.0-11.0) fl Neut % (Auto) (50.0-68.0) % Lymph % (Auto) (22.0-35.0) % [place] % (Auto) (1.0-6.0) % Eos % (Auto) (1.5-5.0) % Baso % (Auto) (0.0-3.0) % Lymph # (Auto) (1.2-3.4) [place] # (Auto) (0.1-0.6) Eos # (Auto) (0.0-0.7) Baso # (Auto) (0.0-2.0) K/mm3 Absolute Neuts (auto) (1.4-6.5) pO2 228 H (30-55) mm/Hg VBG pH 7.45 H (7.32-7.43) VBG pCO2 39.0 L (40-60) VBG HCO3 27.1 (21-28) mmol/l VBG Total CO2 28.3 H (22-28) mmol.L VBG O2 Sat (Calc) 97.8 H (40-65) % VBG Base Excess 3.0 H (0.0-2.0) mmol/L VBG Potassium 4.5 (3.6-5.2) mmol/L Sodium 138.0 (132-148) mmol/L Chloride 106.0 (98-107) mmol/L Glucose 83 (75-110) mg/dl Lactate 0.9 (0.7-2.1) mmol/L FiO2 21.0 % Potassium (3.6-5.0) mmol/L Carbon Dioxide (21-33) mmol/L Anion Gap (10-20) BUN (7-21) mg/dL Creatinine (0.8-1.5) mg/dl Est GFR ( Amer) Est GFR (Non-Af Amer) Random Glucose (70-110) mg/dL Calcium (8.4-10.5) mg/dL Troponin I ng/mL Venous Blood Potassium 4.5 (3.6-5.2) mmol/L Blood Type Antibody Screen Crossmatch BBK History Checked 06/16/18 06/16/18 06/16/18 Range/Units 06:24 06:24 06:24 WBC 5.6 (4.5-11.0) 10^3/uL RBC 2.24 L (3.5-6.1) 10^6/uL Hgb 6.7 L* (14.0-18.0) g/dL Hct 20.4 L* (42.0-52.0) % MCV 92.5 (80.0-105.0) fl MCH 29.9 (25.0-35.0) pg MCHC 32.8 (31.0-37.0) g/dl RDW 16.4 H (11.5-14.5) % Plt Count 147 (120.0-450.0) 10^3/uL MPV 9.4 (7.0-11.0) fl Neut % (Auto) 66.5 (50.0-68.0) % Lymph % (Auto) 20.8 L (22.0-35.0) % [place] % (Auto) 7.7 H (1.0-6.0) % Eos % (Auto) 4.3 (1.5-5.0) % Baso % (Auto) 0.7 (0.0-3.0) % Lymph # (Auto) 1.2 (1.2-3.4) [place] # (Auto) 0.4 (0.1-0.6) Eos # (Auto) 0.2 (0.0-0.7) Baso # (Auto) 0.04 (0.0-2.0) K/mm3 Absolute Neuts (auto) 3.72 (1.4-6.5) pO2 166 H (30-55) mm/Hg VBG pH 7.44 H (7.32-7.43) VBG pCO2 41.0 (40-60) VBG HCO3 27.8 (21-28) mmol/l VBG Total CO2 29.1 H (22-28) mmol.L VBG O2 Sat (Calc) 97.9 H (40-65) % VBG Base Excess 3.3 H (0.0-2.0) mmol/L VBG Potassium 4.6 (3.6-5.2) mmol/L Sodium 138.0 139 (132-148) mmol/L Chloride 107.0 104 (98-107) mmol/L Glucose 108 (75-110) mg/dl Lactate 1.3 (0.7-2.1) mmol/L FiO2 21.0 % Potassium 4.5 (3.6-5.0) mmol/L Carbon Dioxide 27 (21-33) mmol/L Anion Gap 13 (10-20) BUN 43 H (7-21) mg/dL Creatinine 5.3 H (0.8-1.5) mg/dl Est GFR ( Amer) 13 Est GFR (Non-Af Amer) 11 Random Glucose 107 (70-110) mg/dL Calcium 8.1 L (8.4-10.5) mg/dL Troponin I ng/mL Venous Blood Potassium 4.6 (3.6-5.2) mmol/L Blood Type Antibody Screen Crossmatch BBK History Checked 06/15/18 06/15/18 06/15/18 Range/Units 23:00 18:05 18:05 WBC (4.5-11.0) 10^3/uL RBC (3.5-6.1) 10^6/uL Hgb (14.0-18.0) g/dL Hct (42.0-52.0) % MCV (80.0-105.0) fl MCH (25.0-35.0) pg MCHC (31.0-37.0) g/dl RDW (11.5-14.5) % Plt Count (120.0-450.0) 10^3/uL MPV (7.0-11.0) fl Neut % (Auto) (50.0-68.0) % Lymph % (Auto) (22.0-35.0) % [place] % (Auto) (1.0-6.0) % Eos % (Auto) (1.5-5.0) % Baso % (Auto) (0.0-3.0) % Lymph # (Auto) (1.2-3.4) [place] # (Auto) (0.1-0.6) Eos # (Auto) (0.0-0.7) Baso # (Auto) (0.0-2.0) K/mm3 Absolute Neuts (auto) (1.4-6.5) pO2 45 204 H (30-55) mm/Hg VBG pH 7.47 H 7.51 H (7.32-7.43) VBG pCO2 39.0 L 36.0 L (40-60) VBG HCO3 28.4 H 28.7 H (21-28) mmol/l VBG Total CO2 29.6 H 29.8 H (22-28) mmol.L VBG O2 Sat (Calc) 86.4 H 97.3 H (40-65) % VBG Base Excess 4.5 H 5.6 H (0.0-2.0) mmol/L VBG Potassium 4.2 3.2 L (3.6-5.2) mmol/L Sodium 139.0 139.0 (132-148) mmol/L Chloride 106.0 106.0 (98-107) mmol/L Glucose 97 106 (75-110) mg/dl Lactate 1.2 0.9 (0.7-2.1) mmol/L FiO2 21.0 21.0 % Potassium (3.6-5.0) mmol/L Carbon Dioxide (21-33) mmol/L Anion Gap (10-20) BUN (7-21) mg/dL Creatinine (0.8-1.5) mg/dl Est GFR ( Amer) Est GFR (Non-Af Amer) Random Glucose (70-110) mg/dL Calcium (8.4-10.5) mg/dL Troponin I 0.09 D ng/mL Venous Blood Potassium 4.2 3.2 L (3.6-5.2) mmol/L Blood Type Antibody Screen Crossmatch BBK History Checked 06/15/18 06/15/18 Range/Units 18:05 11:00 WBC 6.9 (4.5-11.0) 10^3/uL RBC 2.57 L (3.5-6.1) 10^6/uL Hgb 7.3 L (14.0-18.0) g/dL Hct 23.5 L (42.0-52.0) % MCV 91.4 (80.0-105.0) fl MCH 28.4 (25.0-35.0) pg MCHC 31.1 (31.0-37.0) g/dl RDW 16.2 H (11.5-14.5) % Plt Count 174 (120.0-450.0) 10^3/uL MPV 9.1 (7.0-11.0) fl Neut % (Auto) (50.0-68.0) % Lymph % (Auto) (22.0-35.0) % [place] % (Auto) (1.0-6.0) % Eos % (Auto) (1.5-5.0) % Baso % (Auto) (0.0-3.0) % Lymph # (Auto) (1.2-3.4) [place] # (Auto) (0.1-0.6) Eos # (Auto) (0.0-0.7) Baso # (Auto) (0.0-2.0) K/mm3 Absolute Neuts (auto) (1.4-6.5) pO2 (30-55) mm/Hg VBG pH (7.32-7.43) VBG pCO2 (40-60) VBG HCO3 (21-28) mmol/l VBG Total CO2 (22-28) mmol.L VBG O2 Sat (Calc) (40-65) % VBG Base Excess (0.0-2.0) mmol/L VBG Potassium (3.6-5.2) mmol/L Sodium (132-148) mmol/L Chloride (98-107) mmol/L Glucose (75-110) mg/dl Lactate (0.7-2.1) mmol/L FiO2 % Potassium (3.6-5.0) mmol/L Carbon Dioxide (21-33) mmol/L Anion Gap (10-20) BUN (7-21) mg/dL Creatinine (0.8-1.5) mg/dl Est GFR ( Amer) Est GFR (Non-Af Amer) Random Glucose (70-110) mg/dL Calcium (8.4-10.5) mg/dL Troponin I ng/mL Venous Blood Potassium (3.6-5.2) mmol/L Blood Type A POSITIVE Antibody Screen Negative Crossmatch See Detail BBK History Checked Patient has bt Laboratory Results - last 24 hr 06/15/18 06/15/18 06/15/18 11:00 18:05 18:05 WBC 6.9 RBC 2.57 L Hgb 7.3 L Hct 23.5 L MCV 91.4 MCH 28.4 MCHC 31.1 RDW 16.2 H Plt Count 174 MPV 9.1 Neut % (Auto) Lymph % (Auto) [place] % (Auto) Eos % (Auto) Baso % (Auto) Lymph # (Auto) [place] # (Auto) Eos # (Auto) Baso # (Auto) Absolute Neuts (auto) pO2 204 H VBG pH 7.51 H VBG pCO2 36.0 L VBG HCO3 28.7 H VBG Total CO2 29.8 H VBG O2 Sat (Calc) 97.3 H VBG Base Excess 5.6 H VBG Potassium 3.2 L Sodium 139.0 Chloride 106.0 Glucose 106 Lactate 0.9 FiO2 21.0 Potassium Carbon Dioxide Anion Gap BUN Creatinine Est GFR ( Amer) Est GFR (Non-Af Amer) Random Glucose Calcium Troponin I Venous Blood Potassium 3.2 L Blood Type A POSITIVE Antibody Screen Negative Crossmatch See Detail BBK History Checked Patient has bt 06/15/18 06/15/18 06/16/18 18:05 23:00 06:24 WBC 5.6 RBC 2.24 L Hgb 6.7 L* Hct 20.4 L* MCV 92.5 MCH 29.9 MCHC 32.8 RDW 16.4 H Plt Count 147 MPV 9.4 Neut % (Auto) 66.5 Lymph % (Auto) 20.8 L [place] % (Auto) 7.7 H Eos % (Auto) 4.3 Baso % (Auto) 0.7 Lymph # (Auto) 1.2 [place] # (Auto) 0.4 Eos # (Auto) 0.2 Baso # (Auto) 0.04 Absolute Neuts (auto) 3.72 pO2 45 VBG pH 7.47 H VBG pCO2 39.0 L VBG HCO3 28.4 H VBG Total CO2 29.6 H VBG O2 Sat (Calc) 86.4 H VBG Base Excess 4.5 H VBG Potassium 4.2 Sodium 139.0 Chloride 106.0 Glucose 97 Lactate 1.2 FiO2 21.0 Potassium Carbon Dioxide Anion Gap BUN Creatinine Est GFR ( Amer) Est GFR (Non-Af Amer) Random Glucose Calcium Troponin I 0.09 D Venous Blood Potassium 4.2 Blood Type Antibody Screen Crossmatch BBK History Checked 06/16/18 06/16/18 06/16/18 06:24 06:24 12:30 WBC 7.1 D RBC 2.56 L Hgb 7.5 L Hct 23.5 L MCV 91.8 MCH 29.3 MCHC 31.9 RDW 16.2 H Plt Count 148 MPV 9.6 Neut % (Auto) Lymph % (Auto) [place] % (Auto) Eos % (Auto) Baso % (Auto) Lymph # (Auto) [place] # (Auto) Eos # (Auto) Baso # (Auto) Absolute Neuts (auto) pO2 166 H VBG pH 7.44 H VBG pCO2 41.0 VBG HCO3 27.8 VBG Total CO2 29.1 H VBG O2 Sat (Calc) 97.9 H VBG Base Excess 3.3 H VBG Potassium 4.6 Sodium 139 138.0 Chloride 104 107.0 Glucose 108 Lactate 1.3 FiO2 21.0 Potassium 4.5 Carbon Dioxide 27 Anion Gap 13 BUN 43 H Creatinine 5.3 H Est GFR ( Amer) 13 Est GFR (Non-Af Amer) 11 Random Glucose 107 Calcium 8.1 L Troponin I Venous Blood Potassium 4.6 Blood Type Antibody Screen Crossmatch BBK History Checked 06/16/18 06/16/18 12:30 16:45 WBC 6.4 RBC 2.78 L Hgb 8.1 L Hct 25.4 L MCV 91.4 MCH 29.1 MCHC 31.9 RDW 16.1 H Plt Count 138 MPV 9.0 Neut % (Auto) Lymph % (Auto) [place] % (Auto) Eos % (Auto) Baso % (Auto) Lymph # (Auto) [place] # (Auto) Eos # (Auto) Baso # (Auto) Absolute Neuts (auto) pO2 228 H VBG pH 7.45 H VBG pCO2 39.0 L VBG HCO3 27.1 VBG Total CO2 28.3 H VBG O2 Sat (Calc) 97.8 H VBG Base Excess 3.0 H VBG Potassium 4.5 Sodium 138.0 Chloride 106.0 Glucose 83 Lactate 0.9 FiO2 21.0 Potassium Carbon Dioxide Anion Gap BUN Creatinine Est GFR ( Amer) Est GFR (Non-Af Amer) Random Glucose Calcium Troponin I Venous Blood Potassium 4.5 Blood Type Antibody Screen Crossmatch BBK History Checked Radiology Impressions: Radiology Impressions GI Bleed Scan Nuclear Medicine 06/15/18 15:13 IMPRESSION: No evidence of active gastrointestinal bleeding. Chest X-Ray 06/15/18 17:44 IMPRESSION: No active disease. Critical Care Progress Note - Nutrition Nutrition: Nutrition Category Date Time Status NPO Diet [DIET] Diets 06/16/18 Breakfast Ordered Addendum Addendum: 06/16/18 17:02 medical attending addendum patient seen and examined with housestaff agree with note above with the following add/excepptions 67m PMH of dilated cardiomyopathy, ESRD on HD, DM, HTN, arthritis, and anemia admitted 06/15 with massive GI bleed Patient had 2 more bloody BMs overnight rec'd 4 units PRBC and HB only incresed by 1 in fact dropped after last unit spoke with GI this AM at bedside, plan for colon prep and c-scope this afternoon f/u post scope trend cbc q 4hours patient is normotensive and 100% sat on RA, not needing HD today will need HD tomorrow rest of care as above Jasbir Gayle MD MICU Attending
--- NOTE | 2018-06-16 07:46 | RAD ---
Date of service: 06/15/2018 HISTORY: chf COMPARISON: 03/17/2018 TECHNIQUE: 1 view obtained. FINDINGS: LUNGS: No active pulmonary disease. PLEURA: No significant pleural effusion identified, no pneumothorax apparent. CARDIOVASCULAR: No aortic atherosclerotic calcification present. Moderate cardiomegaly no pulmonary vascular congestion. OSSEOUS STRUCTURES: No significant abnormalities. VISUALIZED UPPER ABDOMEN: Normal. OTHER FINDINGS: Single lead pacemaker IMPRESSION: No active disease.
--- NOTE | 2018-06-16 08:20 | NM ---
Date of service: 06/15/2018 PROCEDURE: Nuclear medicine gastrointestinal bleeding scan. HISTORY: rectal bleeding COMPARISON: None available. TECHNIQUE: 4ccof patient blood was withdrawn and mixed with 35.0mCi of technetium ultra tagged. Images of the abdomen and pelvis were obtained in the anterior and posterior projection at 1 min intervals over a period of 45 min. FINDINGS: No abnormal extravasation of tracer was observed throughout the exam to indicate active bleeding within or outside the gastrointestinal tract. Physiologic activity was seen in the heart, liver, spleen and blood vessels and bladder. The report concurs with the preliminary [facility] report IMPRESSION: No evidence of active gastrointestinal bleeding.
--- NOTE | 2018-06-16 08:23 | CP.PCM.PN ---
Subjective - Date & Time of Evaluation Date of Evaluation: 06/16/18 Time of Evaluation: 07:45 - Subjective Subjective: (covering for Dr. Thacker) Patient is seen this morning. He is lying in bed in the critical care unit bed 1. He says he had more blood in his stool last night. Objective - Vital Signs/Intake and Output Vital Signs (last 24 hours): Temp Pulse Resp BP Pulse Ox 98.5 F 73 13 116/42 L 100 06/16/18 03:00 06/16/18 05:15 06/16/18 05:15 06/16/18 05:15 06/16/18 05:15 Intake and Output: 06/16/18 06/16/18 06:59 18:59 Intake Total 3168 Output Total 400 Balance 2768 - Medications Medications: Current Medications Amiodarone HCl (Cordarone) 200 mg PO DAILY [facility] Atorvastatin Calcium (Lipitor) 40 mg PO DIN [facility] Last Admin: 06/15/18 22:35 Dose: 40 mg Ferrous Sulfate (Feosol) 324 mg PO TID [facility] Last Admin: 06/15/18 22:35 Dose: 324 mg Midodrine (Proamatine) 5 mg PO 0800,1200,1600 [facility] Pantoprazole Sodium (Protonix Inj) 40 mg IVP DAILY [facility] Sevelamer HCl (Renagel) 1 mg PO BID [facility] Tamsulosin HCl (Flomax) 0.4 mg PO DAILY [facility] Vitamin B Complex/Vit C/Folic Acid (Nephro-Tyson) 1 tab PO DAILY [facility] - Labs Labs: 06/16/18 06:24 06/16/18 06:24 PT 16.4 SECONDS (9.4-12.5) H 06/15/18 11:00 INR 1.45 06/15/18 11:00 APTT 35.4 Seconds (26.9-38.3) 06/15/18 11:00 - Constitutional Appears: No Acute Distress - Head Exam Head Exam: ATRAUMATIC, NORMOCEPHALIC - Respiratory Exam Respiratory Exam: Clear to Ausculation Bilateral, NORMAL BREATHING PATTERN - Cardiovascular Exam Cardiovascular Exam: REGULAR RHYTHM, +S1, +S2 - GI/Abdominal Exam GI & Abdominal Exam: Soft, Normal Bowel Sounds. absent: Tenderness - Neurological Exam Neurological Exam: Alert, Awake, Oriented x3 Assessment and Plan - Assessment and Plan (Free Text) Assessment: GI Bleed Dilated cardiomyopathy with EF 22% ESRD on HD HTN Diabetes mellitus Anemia Plan: Patient continues to have bright red blood per rectum. His hemoglobin is 6.7 after receiving 2 units of PRBCs and 1 unit of FFP. GI consult appreciated. Awaiting results of bleeding scan. Possible colonoscopy as per GI. Patient to continue dialysis as usual as per nephrology. Aspirin has been placed on hold. Patient says that his seat trimmer is Dr. Jonas in [place]. Dr Watt has been consulted for cardiology while the patient is in the hospital as patient has history of cardiomyopathy s/p defibrillator.
[2018-06-16 08:42] LABS: MEAN CELL VOLUME 92.5 fl (80.0-105.0)
[2018-06-16] MEDS ORDERED: Bisacodyl 5mg EC Tab PO STA (09:00)
[2018-06-16] MEDS ORDERED: NuLYTELY (NACL/NAHCO3/KCL/PEG) 4L PO STA (09:02)
[2018-06-16] MEDS: Multivitamin Vitamin B Complex (Nephro-Vite) Tab PO SCH (09:35)
--- NOTE | 2018-06-16 10:08 | CP.PCM.PN ---
<Dl Santos - Last Filed: 06/16/18 10:53> Subjective - Date & Time of Evaluation Date of Evaluation: 06/16/18 Time of Evaluation: 09:04 - Subjective Subjective: Dl Santos PGY2 GI Progress Note for Dr. Wynn Patient was seen an examined at bedside in ICU. Overnight, nursing reports that patient passed 2 large amounts of bloody stools. It is unclear if there were any clots or if the blood was dark. Patient denies any current abdominal pain or pain associated with the BMs. He denies any fevers/chills, nausea/vomiting or chest pain. Hemoglobin level did not respond to 4u pRBCs, and 3u FFP overnight. GI bleeding scan was noted as no active bleeding. Discussed with ICU team. In light of recent bleeding and continued anemia, will prep patient for colonoscopy today if patient is stable; requesting ICU team to transfuse patient and stabilize for the procedure, given his cardiac and renal conditions. Objective - Vital Signs/Intake and Output Vital Signs (last 24 hours): Temp Pulse Resp BP Pulse Ox 98.8 F 76 15 98/58 L 100 06/16/18 08:39 06/16/18 08:39 06/16/18 08:39 06/16/18 09:34 06/16/18 05:15 Intake and Output: 06/16/18 06/16/18 06:59 18:59 Intake Total 3168 0 Output Total 400 Balance 2768 0 - Medications Medications: Current Medications Amiodarone HCl (Cordarone) 200 mg PO DAILY [facility] Last Admin: 06/16/18 09:34 Dose: 200 mg Atorvastatin Calcium (Lipitor) 40 mg PO DIN [facility] Last Admin: 06/15/18 22:35 Dose: 40 mg Ferrous Sulfate (Feosol) 324 mg PO TID [facility] Last Admin: 06/16/18 09:34 Dose: 324 mg Midodrine (Proamatine) 5 mg PO 0800,1200,1600 [facility] Pantoprazole Sodium (Protonix Inj) 40 mg IVP DAILY [facility] Last Admin: 06/16/18 09:32 Dose: 40 mg Sevelamer HCl (Renagel) 800 mg PO BID [facility] Tamsulosin HCl (Flomax) 0.4 mg PO DAILY [facility] Last Admin: 06/16/18 09:35 Dose: 0.4 mg Vitamin B Complex/Vit C/Folic Acid (Nephro-Tyson) 1 tab PO DAILY [facility] Last Admin: 06/16/18 09:35 Dose: 1 tab - Labs Labs: 06/16/18 06:24 06/16/18 06:24 PT 16.4 SECONDS (9.4-12.5) H 06/15/18 11:00 INR 1.45 06/15/18 11:00 APTT 35.4 Seconds (26.9-38.3) 06/15/18 11:00 - Constitutional Appears: Non-toxic, No Acute Distress - Head Exam Head Exam: ATRAUMATIC, NORMAL INSPECTION - Eye Exam Eye Exam: EOMI, Normal appearance - ENT Exam ENT Exam: Mucous Membranes Moist, Normal Exam - Neck Exam Neck Exam: Full ROM - Respiratory Exam Respiratory Exam: NORMAL BREATHING PATTERN - Cardiovascular Exam Cardiovascular Exam: RRR, +S1, +S2, Murmur Additional comments: ACID - GI/Abdominal Exam GI & Abdominal Exam: Soft, Normal Bowel Sounds. absent: Distended, Tenderness - Extremities Exam Extremities Exam: Full ROM. absent: Pedal Edema Additional comments: LUE AVF +bruit +thrill - Back Exam Back Exam: Full ROM, NORMAL INSPECTION - Neurological Exam Neurological Exam: Alert, Awake - Skin Skin Exam: Normal Color, Warm Assessment and Plan - Assessment and Plan (Free Text) Assessment: 67 year old male with a PMH of dilated cardiomyopathy (EF 22%) s/p defibrillator, ESRD on HD MWF, DM2, Arthritis, HTN and Anemia of chronic disease/iron deficiency who is admitted with symptomatic anemia and bloody stool movement. GI is consulted for anemia, and bright red blood per rectum. Likely source is AVM, however, patient is at risk for ischemic colitis given his cardiac history and ESRD. Patient continues to have bloody BM's and his Hgb is still low and barely responded to 4u pRBCs. Bleeding scan was negative. Plan: - optimize patient hemodynamically - continue to provided pRBCs but monitor cardiopulmonary status as he has severe dilated CM w/ reduced EF - for colonoscopy later today; will need bowel prep which is ordered - continue ICU management - monitor VS - monitor H/H - discussed plan w/ ICU team - further recs per Dr. Wynn Case was reviewed and discussed with Dr. Wynn <Foreign Wynn V - Last Filed: 06/16/18 19:09> Objective - Vital Signs/Intake and Output Vital Signs (last 24 hours): Temp Pulse Resp BP Pulse Ox 98.1 F 68 18 114/64 100 06/16/18 15:57 06/16/18 18:00 06/16/18 15:57 06/16/18 15:57 06/16/18 05:15 Intake and Output: 06/16/18 06/17/18 18:59 06:59 Intake Total 5550 Output Total 1000 Balance 4550 - Medications Medications: Current Medications Amiodarone HCl (Cordarone) 200 mg PO DAILY [facility] Last Admin: 06/16/18 09:34 Dose: 200 mg Atorvastatin Calcium (Lipitor) 40 mg PO DIN [facility] Last Admin: 06/16/18 17:14 Dose: 40 mg Ferrous Sulfate (Feosol) 324 mg PO TID [facility] Last Admin: 06/16/18 17:31 Dose: 324 mg Midodrine (Proamatine) 5 mg PO 0800,1200,1600 [facility] Last Admin: 06/16/18 17:17 Dose: 5 mg Pantoprazole Sodium (Protonix Inj) 40 mg IVP DAILY [facility] Last Admin: 06/16/18 09:32 Dose: 40 mg Sevelamer HCl (Renagel) 800 mg PO BID [facility] Last Admin: 06/16/18 17:15 Dose: 800 mg Tamsulosin HCl (Flomax) 0.4 mg PO DAILY [facility] Last Admin: 06/16/18 09:35 Dose: 0.4 mg Vitamin B Complex/Vit C/Folic Acid (Nephro-Tyson) 1 tab PO DAILY [facility] Last Admin: 06/16/18 09:35 Dose: 1 tab - Labs Labs: 06/16/18 16:45 06/16/18 06:24 PT 16.4 SECONDS (9.4-12.5) H 06/15/18 11:00 INR 1.45 06/15/18 11:00 APTT 35.4 Seconds (26.9-38.3) 06/15/18 11:00 Attending/Attestation - Attestation I have personally seen and examined this patient.: Yes I have fully participated in the care of the patient.: Yes I have reviewed all pertinent clinical information, including history, physical exam and plan: Yes Notes (Text): This patient was seen and evaluated along with the medical assembly. Discussed with the fac engineer. Active bleeding per rectum transfused 4 units of packed RBC. Patient is being prepared for colonoscopy evaluation and will consider EGD at the same time. 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 Patient is high risk status active bleeding needs EGD and colonoscopy. Informed consent was obtained 06/16/18 19:07
[2018-06-16 12:46] LABS: VENOUS BLOOD GAS PO2 228 mm/Hg (30-55); VENOUS BLOOD PH 7.45 (7.32-7.43)
[2018-06-16 12:58] LABS: HEMOGLOBIN 7.5 g/dL (14.0-18.0); MEAN CELL VOLUME 91.8 fl (80.0-105.0); MEAN CORPUSCULAR HEMOGLOBIN 29.3 pg (25.0-35.0); MEAN CORPUSCULAR HGB CONC 31.9 g/dl (31.0-37.0); MEAN PLATELET VOLUME 9.6 fl (7.0-11.0); RBC 2.56 10^6/uL (3.5-6.1); RED CELL DISTRIBUTION WIDTH 16.2 % (11.5-14.5); WHITE BLOOD COUNT 7.1 10^3/uL (4.5-11.0)
--- NOTE | 2018-06-16 16:04 | CON ---
DATE OF CONSULTATION: 06/16/2018 CARDIOLOGY CONSULTATION HISTORY: The patient is a 67-year-old male with multiple cardiac risk factors, who presents with weakness and severe anemia. He is found to have bright red blood per rectum. PAST MEDICAL HISTORY: The patient's past medical history includes documented severe cardiomyopathy, which is nonischemic according to the patient. His latin dancer, Dr. Jonas, in [place], did a catheterization which, according to the patient, revealed no significant coronary artery disease. He also suffers from end-stage renal disease, treated with dialysis. He is currently on amiodarone, aspirin for questionable reasons, atorvastatin, as well as well as Flomax for prostate issues. The patient over the night received 4 units of blood transfusions to an improved hemoglobin. The patient feels well. No chest pain. No shortness of breath. SOCIAL HISTORY: The patient denies smoking. REVIEW OF SYSTEMS: Review of systems were free of cardiac symptoms. PHYSICAL EXAMINATION: VITAL SIGNS: Blood pressure is 113/61, the heart rate is in the 70s, normal sinus rhythm. NECK: Negative JVD. LUNGS: Without rales. CARDIAC: Heart rate S1, S2. EXTREMITIES: Without edema. LABORATORY DATA: Hemoglobin was 5.9 before transfusion. Chemistries: Currently, the BUN and creatinine are 43 and 5.3 with a troponin of 0.90. IMPRESSION: 1. Lower gastrointestinal bleed. 2. History of arteriovenous malformations. 3. End-stage renal disease. 4. Severe dilated cardiomyopathy. 5. Status post implantable cardioverter defibrillator placement. 6. Marked anemia. 7. History of fibrin strands on his lead placement, for which the patient has been treated with aspirin. PLAN: Given these findings, the patient is hemodynamically stable. Although he is at increased risk for any anesthesia, the patient will need to undergo colonoscopy today to find the source of his GI bleed. Kamari Watt MD
[2018-06-16 16:58] LABS: HEMOGLOBIN 8.1 g/dL (14.0-18.0); MEAN CELL VOLUME 91.4 fl (80.0-105.0); MEAN CORPUSCULAR HEMOGLOBIN 29.1 pg (25.0-35.0); MEAN CORPUSCULAR HGB CONC 31.9 g/dl (31.0-37.0); RBC 2.78 10^6/uL (3.5-6.1); RED CELL DISTRIBUTION WIDTH 16.1 % (11.5-14.5); WHITE BLOOD COUNT 6.4 10^3/uL (4.5-11.0)
[2018-06-16] MEDS ORDERED: Propofol 10 mg/ml Inj (20 ML) ONE (19:21)
[2018-06-16] MEDS ORDERED: Phenylephrine 10 mg/ml Inj ONE (19:22)
[2018-06-16] MEDS ORDERED: Etomidate 20 mg/10ml Inj IV ONE (19:22)
[2018-06-16] MEDS ORDERED: Simethicone 40 mg/0.6 ml Liquid (30 ml) ONE (19:37)
[2018-06-16 22:15] LABS: BASO # 0.04 K/mm3 (0.0-2.0); BASO % 0.6 % (0.0-3.0); EOS # 0.3 (0.0-0.7); EOS % 4.5 % (1.5-5.0); HEMOGLOBIN 8.2 g/dL (14.0-18.0); LYMPH # 1.1 (1.2-3.4); LYMPH % 15.7 % (22.0-35.0); MEAN CELL VOLUME 91.1 fl (80.0-105.0); MEAN CORPUSCULAR HEMOGLOBIN 29.3 pg (25.0-35.0); MEAN CORPUSCULAR HGB CONC 32.2 g/dl (31.0-37.0); MEAN PLATELET VOLUME 8.7 fl (7.0-11.0); MONO # 0.4 (0.1-0.6); MONO % 5.7 % (1.0-6.0); RBC 2.8 10^6/uL (3.5-6.1); RED CELL DISTRIBUTION WIDTH 16.5 % (11.5-14.5); WHITE BLOOD COUNT 7.1 10^3/uL (4.5-11.0)
[2018-06-17 01:17] LABS: BASO # 0.05 K/mm3 (0.0-2.0); BASO % 0.5 % (0.0-3.0); EOS # 0.4 (0.0-0.7); EOS % 3.6 % (1.5-5.0); HEMOGLOBIN 8.1 g/dL (14.0-18.0); LYMPH # 1.4 (1.2-3.4); LYMPH % 14.8 % (22.0-35.0); MEAN CELL VOLUME 91.2 fl (80.0-105.0); MEAN CORPUSCULAR HEMOGLOBIN 29.7 pg (25.0-35.0); MEAN CORPUSCULAR HGB CONC 32.5 g/dl (31.0-37.0); MEAN PLATELET VOLUME 8.7 fl (7.0-11.0); MONO # 0.7 (0.1-0.6); MONO % 6.9 % (1.0-6.0); RBC 2.73 10^6/uL (3.5-6.1); RED CELL DISTRIBUTION WIDTH 16.5 % (11.5-14.5); WHITE BLOOD COUNT 9.7 10^3/uL (4.5-11.0)
--- NOTE | 2018-06-17 01:25 | PN ---
DATE: 06/16/2018 SUBJECTIVE: The patient is seen, lying in bed in the ICU. He complains of being weak. He complains of some fatigue. He denies any chest tightness. He denies any palpitation. He has a rectal tube. He is getting a colonic prep. The effluent is all bloody. His hemoglobin was 6 yesterday. He got two units of blood. Hemoglobin went up to 7.3, but again it dropped to 6.7 early this morning. He has received total of five units of PRBC so far. He also has received some FFP. PHYSICAL EXAMINATION: GENERAL: Elderly male, lying in bed. VITAL SIGNS: Blood pressure 114/63, heart rate 70, respiratory rate 14, temperature 98.6. HEENT: Normocephalic, atraumatic, positive pallor. NECK: Supple, no JVD. LUNGS: Bilateral equal air entry, bilateral equal expansion, no rales. CARDIAC: S1 and S2, regular rate and rhythm, no murmur, no rub. ABDOMEN: Soft, nondistended, nontender, bowel sounds present. EXTREMITIES: Chronic stasis changes. No lower extremity edema. LABORATORY DATA: WBC 5.6, hemoglobin 6.7, hematocrit 20, platelets 147. Sodium 139, potassium 4.5, chloride 104, CO2 of 27, BUN 43, creatinine 5.3, glucose 107. Calcium 8.1. CURRENT MEDICATIONS: Amiodarone 200 mg, Dulcolax 10 mg, Feosol 324 mg t.i.d., Flomax 0.4 mg, Lipitor 40 mg, 5 t.i.d., Protonix 40 mg, Renagel 800 mg b.i.d. ASSESSMENT: 1. Severe anemia secondary to rectal bleeding, the patient continues to have bloody effluent. 2. Hypertension, but currently the patient is hypotensive. 3. History of coronary artery disease. 4. History of peripheral arterial disease. 5. History of [id number] diabetes mellitus. 6. End-stage renal disease. 7. Dilated cardiomyopathy, decreased ejection fraction of 22%, automatic implantable cardioverter-defibrillator. PLAN: 1. Continue to monitor in the ICU. 2. Transfuse two units of packed red blood cells. 3. Agree with plan for colonoscopy. 4. We will evaluate for need for dialysis tomorrow. 5. Cardiology evaluation. Case discussed with Dr. Wynn. Case discussed with ICU nursing staff. Case discussed with dialysis staff. More than 35 minutes was spent in the care of this critically ill patient. Grecia Young MD
[2018-06-17 05:53] LABS: BASO # 0.03 K/mm3 (0.0-2.0); BASO % 0.4 % (0.0-3.0); EOS # 0.3 (0.0-0.7); EOS % 4.3 % (1.5-5.0); HEMOGLOBIN 7.3 g/dL (14.0-18.0); LYMPH # 0.7 (1.2-3.4); LYMPH % 9.9 % (22.0-35.0); MEAN CELL VOLUME 91.5 fl (80.0-105.0); MEAN CORPUSCULAR HEMOGLOBIN 29.6 pg (25.0-35.0); MEAN CORPUSCULAR HGB CONC 32.3 g/dl (31.0-37.0); MONO # 0.7 (0.1-0.6); MONO % 10.2 % (1.0-6.0); RBC 2.47 10^6/uL (3.5-6.1); RED CELL DISTRIBUTION WIDTH 16.4 % (11.5-14.5); WHITE BLOOD COUNT 7.2 10^3/uL (4.5-11.0)
[2018-06-17] MEDS ORDERED: NuLYTELY (NACL/NAHCO3/KCL/PEG) 4L PO ONE (07:00)
--- NOTE | 2018-06-17 07:01 | CP.CCUPN ---
<LucasAlbertpaola Echevarria - Last Filed: 06/17/18 14:26> CCU Subjective - Physician Review Events Since Last Encounter (Free Text): 06/17/18 06:55 Pt had one episode of bloody stool since last night, no other acute events reported Subjective (Free Text): 06/16/18 06:59 Pt seen and examined in the ICU, reports 2 episodes of BRBPR since arrival, reports daily ASA use. Denies chest pain, SOB, lightheadedness. 06/17/18 06:56 Pt seen and examined, pt has no new complaints at this time. Denies chest pain, SOB, dizziness. CCU Objective - Vital Signs / Intake & Output Vital Signs (Last 4 hours): Vital Signs Temp Pulse Resp BP 06/17/18 06:53 98.5 F 70 15 99/40 L Intake and Output (Last 8hrs): Intake & Output 06/16/18 06/16/18 06/17/18 14:59 22:59 06:59 Intake Total 355 5195 Output Total 1000 Balance 355 4195 Intake: IV 740 Right Wrist 740 Oral 4100 Blood Product 325 325 Red Blood Cells Cpd As1 325 Lr Unit [id number] Red Blood Cells Cpd As1 0 325 Lr Unit [id number] Other 30 30 Red Blood Cells Cpd As1 30 Lr Unit [id number] Red Blood Cells Cpd As1 30 Lr Unit [id number] Output: Stool 1000 - Physical Exam Physical Exam Limitations: Negative for: Altered Mental Status Head: Positive for: Atraumatic, Normocephalic Pupils: Positive for: PERRL Extroacular Muscles: Positive for: EOMI Conjunctiva: Positive for: Normal Mouth: Positive for: Moist Mucous Membranes Neck: Positive for: Normal Range of Motion Respiratory/Chest: Positive for: Clear to Auscultation, Good Air Exchange. Negative for: Respiratory Distress, Accessory Muscle Use Cardiovascular: Positive for: Regular Rate and Rhythm, Normal S1, S2. Negative for: Murmurs Abdomen: Negative for: Tenderness, Distention, Peritoneal Signs Rectal: Positive for: Occult Blood (bright red blood ) Back: Positive for: Normal Inspection Upper Extremity: Positive for: Normal Inspection, Other (left AV fistula). Negative for: Cyanosis, Edema Lower Extremity: Positive for: Normal Inspection. Negative for: Edema Neurological: Positive for: GCS=15, CN II-XII Intact, Speech Normal Skin: Positive for: Warm, Dry, Normal Color. Negative for: Rashes Psychiatric: Positive for: Alert, Oriented x 3, Normal Insight, Normal Concentr ation - Medications Active Medications: Active Medications Generic Name Dose Route Start Last Admin Trade Name Pepitoq PRN Reason Stop Dose Admin Amiodarone HCl 200 mg 06/16/18 10:00 06/16/18 09:34 Cordarone PO 200 mg DAILY JAVIER Administration Atorvastatin Calcium 40 mg 06/15/18 17:00 06/16/18 17:14 Lipitor PO 40 mg DIN JAVIER Administration Bisacodyl 10 mg 06/17/18 12:00 Dulcolax PO 06/17/18 12:01 ONCE ONE Ferrous Sulfate 324 mg 06/15/18 14:00 06/16/18 17:31 Feosol PO 324 mg TID JAVIER Administration Midodrine 5 mg 06/16/18 12:00 06/16/18 17:17 Proamatine PO 5 mg 0800,1200,1600 JAVIER Administration Pantoprazole Sodium 40 mg 06/16/18 10:00 06/16/18 09:32 Protonix Inj IVP 40 mg DAILY JAVIER Administration Sevelamer HCl 800 mg 06/16/18 09:43 06/16/18 17:15 Renagel PO 800 mg BID JAVIER Administration Sodium Cl/Sod Bicarb/Potass Cl/PEG 4,000 ml 06/17/18 07:00 Nulytely With Flavor Packs Kristy PO 06/17/18 07:01 ONCE ONE Tamsulosin HCl 0.4 mg 06/16/18 10:00 06/16/18 09:35 Flomax PO 0.4 mg DAILY JAVIER Administration Vitamin B Complex/Vit C/Folic Acid 1 tab 06/16/18 10:00 06/16/18 09:35 Nephro-Tyson PO 1 tab DAILY JAVIER Administration - Patient Studies Lab Studies: Microbiology Studies 06/15/18 18:25 MRSA Culture (Admit) - Final Naris MRSA NOT DETECTED Lab Studies 06/17/18 06/17/18 06/16/18 Range/Units 05:20 01:05 22:00 WBC 7.2 D 9.7 D 7.1 (4.5-11.0) 10^3/uL RBC 2.47 L 2.73 L 2.80 L (3.5-6.1) 10^6/uL Hgb 7.3 L 8.1 L 8.2 L (14.0-18.0) g/dL Hct 22.6 L 24.9 L 25.5 L (42.0-52.0) % MCV 91.5 91.2 91.1 (80.0-105.0) fl MCH 29.6 29.7 29.3 (25.0-35.0) pg MCHC 32.3 32.5 32.2 (31.0-37.0) g/dl RDW 16.4 H 16.5 H 16.5 H (11.5-14.5) % Plt Count 135 140 132 (120.0-450.0) 10^3/uL MPV 9.0 8.7 8.7 (7.0-11.0) fl Neut % (Auto) 75.2 H 74.2 H 73.5 H (50.0-68.0) % Lymph % (Auto) 9.9 L 14.8 L 15.7 L (22.0-35.0) % Green % (Auto) 10.2 H 6.9 H 5.7 (1.0-6.0) % Eos % (Auto) 4.3 3.6 4.5 (1.5-5.0) % Baso % (Auto) 0.4 0.5 0.6 (0.0-3.0) % Lymph # (Auto) 0.7 L 1.4 1.1 L (1.2-3.4) Green # (Auto) 0.7 H 0.7 H 0.4 (0.1-0.6) Eos # (Auto) 0.3 0.4 0.3 (0.0-0.7) Baso # (Auto) 0.03 0.05 0.04 (0.0-2.0) K/mm3 Absolute Neuts (auto) 5.44 7.20 H 5.18 (1.4-6.5) pO2 (30-55) mm/Hg VBG pH (7.32-7.43) VBG pCO2 (40-60) VBG HCO3 (21-28) mmol/l VBG Total CO2 (22-28) mmol.L VBG O2 Sat (Calc) (40-65) % VBG Base Excess (0.0-2.0) mmol/L VBG Potassium (3.6-5.2) mmol/L Glucose (75-110) mg/dl Lactate (0.7-2.1) mmol/L FiO2 % Sodium (132-148) mmol/L Potassium (3.6-5.0) mmol/L Chloride (98-107) mmol/L Carbon Dioxide (21-33) mmol/L Anion Gap (10-20) BUN (7-21) mg/dL Creatinine (0.8-1.5) mg/dl Est GFR ( Amer) Est GFR (Non-Af Amer) Random Glucose (70-110) mg/dL Calcium (8.4-10.5) mg/dL Venous Blood Potassium (3.6-5.2) mmol/L Blood Type Antibody Screen Crossmatch BBK History Checked 06/16/18 06/16/18 06/16/18 Range/Units 16:45 12:30 12:30 WBC 6.4 7.1 D (4.5-11.0) 10^3/uL RBC 2.78 L 2.56 L (3.5-6.1) 10^6/uL Hgb 8.1 L 7.5 L (14.0-18.0) g/dL Hct 25.4 L 23.5 L (42.0-52.0) % MCV 91.4 91.8 (80.0-105.0) fl MCH 29.1 29.3 (25.0-35.0) pg MCHC 31.9 31.9 (31.0-37.0) g/dl RDW 16.1 H 16.2 H (11.5-14.5) % Plt Count 138 148 (120.0-450.0) 10^3/uL MPV 9.0 9.6 (7.0-11.0) fl Neut % (Auto) (50.0-68.0) % Lymph % (Auto) (22.0-35.0) % Green % (Auto) (1.0-6.0) % Eos % (Auto) (1.5-5.0) % Baso % (Auto) (0.0-3.0) % Lymph # (Auto) (1.2-3.4) Green # (Auto) (0.1-0.6) Eos # (Auto) (0.0-0.7) Baso # (Auto) (0.0-2.0) K/mm3 Absolute Neuts (auto) (1.4-6.5) pO2 228 H (30-55) mm/Hg VBG pH 7.45 H (7.32-7.43) VBG pCO2 39.0 L (40-60) VBG HCO3 27.1 (21-28) mmol/l VBG Total CO2 28.3 H (22-28) mmol.L VBG O2 Sat (Calc) 97.8 H (40-65) % VBG Base Excess 3.0 H (0.0-2.0) mmol/L VBG Potassium 4.5 (3.6-5.2) mmol/L Glucose 83 (75-110) mg/dl Lactate 0.9 (0.7-2.1) mmol/L FiO2 21.0 % Sodium 138.0 (132-148) mmol/L Potassium (3.6-5.0) mmol/L Chloride 106.0 (98-107) mmol/L Carbon Dioxide (21-33) mmol/L Anion Gap (10-20) BUN (7-21) mg/dL Creatinine (0.8-1.5) mg/dl Est GFR ( Amer) Est GFR (Non-Af Amer) Random Glucose (70-110) mg/dL Calcium (8.4-10.5) mg/dL Venous Blood Potassium 4.5 (3.6-5.2) mmol/L Blood Type Antibody Screen Crossmatch BBK History Checked 06/16/18 06/16/18 06/15/18 Range/Units 06:24 06:24 11:00 WBC (4.5-11.0) 10^3/uL RBC (3.5-6.1) 10^6/uL Hgb (14.0-18.0) g/dL Hct (42.0-52.0) % MCV 92.5 (80.0-105.0) fl MCH (25.0-35.0) pg MCHC (31.0-37.0) g/dl RDW (11.5-14.5) % Plt Count (120.0-450.0) 10^3/uL MPV (7.0-11.0) fl Neut % (Auto) (50.0-68.0) % Lymph % (Auto) (22.0-35.0) % Green % (Auto) (1.0-6.0) % Eos % (Auto) (1.5-5.0) % Baso % (Auto) (0.0-3.0) % Lymph # (Auto) (1.2-3.4) Green # (Auto) (0.1-0.6) Eos # (Auto) (0.0-0.7) Baso # (Auto) (0.0-2.0) K/mm3 Absolute Neuts (auto) (1.4-6.5) pO2 (30-55) mm/Hg VBG pH (7.32-7.43) VBG pCO2 (40-60) VBG HCO3 (21-28) mmol/l VBG Total CO2 (22-28) mmol.L VBG O2 Sat (Calc) (40-65) % VBG Base Excess (0.0-2.0) mmol/L VBG Potassium (3.6-5.2) mmol/L Glucose (75-110) mg/dl Lactate (0.7-2.1) mmol/L FiO2 % Sodium 139 (132-148) mmol/L Potassium 4.5 (3.6-5.0) mmol/L Chloride 104 (98-107) mmol/L Carbon Dioxide 27 (21-33) mmol/L Anion Gap 13 (10-20) BUN 43 H (7-21) mg/dL Creatinine 5.3 H (0.8-1.5) mg/dl Est GFR ( Amer) 13 Est GFR (Non-Af Amer) 11 Random Glucose 107 (70-110) mg/dL Calcium 8.1 L (8.4-10.5) mg/dL Venous Blood Potassium (3.6-5.2) mmol/L Blood Type A POSITIVE Antibody Screen Negative Crossmatch See Detail BBK History Checked Patient has bt Laboratory Results - last 24 hr 06/15/18 06/16/18 06/16/18 11:00 06:24 06:24 WBC RBC Hgb Hct MCV 92.5 MCH MCHC RDW Plt Count MPV Neut % (Auto) Lymph % (Auto) Green % (Auto) Eos % (Auto) Baso % (Auto) Lymph # (Auto) Green # (Auto) Eos # (Auto) Baso # (Auto) Absolute Neuts (auto) pO2 VBG pH VBG pCO2 VBG HCO3 VBG Total CO2 VBG O2 Sat (Calc) VBG Base Excess VBG Potassium Glucose Lactate FiO2 Sodium 139 Potassium 4.5 Chloride 104 Carbon Dioxide 27 Anion Gap 13 BUN 43 H Creatinine 5.3 H Est GFR ( Amer) 13 Est GFR (Non-Af Amer) 11 Random Glucose 107 Calcium 8.1 L Venous Blood Potassium Blood Type A POSITIVE Antibody Screen Negative Crossmatch See Detail BBK History Checked Patient has bt 06/16/18 06/16/18 06/16/18 12:30 12:30 16:45 WBC 7.1 D 6.4 RBC 2.56 L 2.78 L Hgb 7.5 L 8.1 L Hct 23.5 L 25.4 L MCV 91.8 91.4 MCH 29.3 29.1 MCHC 31.9 31.9 RDW 16.2 H 16.1 H Plt Count 148 138 MPV 9.6 9.0 Neut % (Auto) Lymph % (Auto) Green % (Auto) Eos % (Auto) Baso % (Auto) Lymph # (Auto) Green # (Auto) Eos # (Auto) Baso # (Auto) Absolute Neuts (auto) pO2 228 H VBG pH 7.45 H VBG pCO2 39.0 L VBG HCO3 27.1 VBG Total CO2 28.3 H VBG O2 Sat (Calc) 97.8 H VBG Base Excess 3.0 H VBG Potassium 4.5 Glucose 83 Lactate 0.9 FiO2 21.0 Sodium 138.0 Potassium Chloride 106.0 Carbon Dioxide Anion Gap BUN Creatinine Est GFR ( Amer) Est GFR (Non-Af Amer) Random Glucose Calcium Venous Blood Potassium 4.5 Blood Type Antibody Screen Crossmatch BBK History Checked 06/16/18 06/17/18 06/17/18 22:00 01:05 05:20 WBC 7.1 9.7 D 7.2 D RBC 2.80 L 2.73 L 2.47 L Hgb 8.2 L 8.1 L 7.3 L Hct 25.5 L 24.9 L 22.6 L MCV 91.1 91.2 91.5 MCH 29.3 29.7 29.6 MCHC 32.2 32.5 32.3 RDW 16.5 H 16.5 H 16.4 H Plt Count 132 140 135 MPV 8.7 8.7 9.0 Neut % (Auto) 73.5 H 74.2 H 75.2 H Lymph % (Auto) 15.7 L 14.8 L 9.9 L Green % (Auto) 5.7 6.9 H 10.2 H Eos % (Auto) 4.5 3.6 4.3 Baso % (Auto) 0.6 0.5 0.4 Lymph # (Auto) 1.1 L 1.4 0.7 L Green # (Auto) 0.4 0.7 H 0.7 H Eos # (Auto) 0.3 0.4 0.3 Baso # (Auto) 0.04 0.05 0.03 Absolute Neuts (auto) 5.18 7.20 H 5.44 pO2 VBG pH VBG pCO2 VBG HCO3 VBG Total CO2 VBG O2 Sat (Calc) VBG Base Excess VBG Potassium Glucose Lactate FiO2 Sodium Potassium Chloride Carbon Dioxide Anion Gap BUN Creatinine Est GFR ( Amer) Est GFR (Non-Af Amer) Random Glucose Calcium Venous Blood Potassium Blood Type Antibody Screen Crossmatch BBK History Checked Radiology Impressions: Radiology Impressions GI Bleed Scan Nuclear Medicine 06/15/18 15:13 IMPRESSION: No evidence of active gastrointestinal bleeding. Chest X-Ray 06/15/18 17:44 IMPRESSION: No active disease. Critical Care Progress Note - Nutrition Nutrition: Nutrition Category Date Time Status Liquid Diet [DIET] Diets 06/16/18 Dinner Ordered NPO Diet [DIET] Diets 06/17/18 Lunch Ordered Assessment/Plan - Assessment and Plan (Free Text) Assessment: Pt is a 67 yo male with a PMH of dilated cardiomyopathy, ESRD on HD, DM, HTN, arthritis, and anemia who presented to the ED complaining of dizziness and 1 episode of BRBPR prior to arrival. Plan: Neuro - AOx3 - continue to monitor mental status Cardio - dilated cardiomyopathy EF 20% with defibrillator - HTN - RRR, normotensive - trop negative - amiodarone, lipitor, midodrine - Cardo consulted, Dr Shukri Walker - maintain O2>92% GI - GI bleed - history of AVM - Hgb 5.9 on arrival, pt hgb has not responded appropriately to transfusion, currently 7.3 - pt has received 6 units pRBC, and 3 FFP - INR 1.45 - CBC q4 - pantoprazole 40mg IVP daily - GI bleeding scan negative for signs of GI bleed - NPO - pt completed nulytely yesterday and received colonoscopy which did not show a lesion of bleeding. - pt will undergo a repeat colonoscopy 06/17/18, after dialysis and nulytely - GI consulted, Dr Wynn - Surgery consulted, Dr Winter Renal/ - ESRD on HD, MWF - will go for dialysis today - continue to monitor electrolytes - BUN 43, Cr 5.3 - flomax, renagel - Nephro consulted, Dr Young ID - no leukocytosis Heme - Anemia of chronic disease - pt reports daily ASA use, hold at this time - ferrous sulfate Endocrine - DM - accuchecks At patient's request, spoke with patient's on the phone, Jammie [phone]. Discussed 's transfusions, colonoscopy, dialysis, and repeat colonoscopy today. Jammie asked for updates after the colonoscopy today. Pt seen, examined, assessment and plan discussed with Dr Levar Zavala PGY1 - Date & Time Date: 06/17/18 Time: 06:58 <Levar Gayle - Last Filed: 06/17/18 17:41> CCU Objective - Vital Signs / Intake & Output Vital Signs (Last 4 hours): Vital Signs Temp Pulse Resp BP Pulse Ox 06/17/18 15:34 97.5 F L 75 16 106/47 L 99 06/17/18 15:03 97.7 F 75 15 94/57 L 97 06/17/18 14:55 98 06/17/18 14:00 74 99/50 L 98 06/17/18 13:50 72 11 L 98 Intake and Output (Last 8hrs): Intake & Output 06/17/18 06/17/18 06/17/18 06:59 14:59 22:59 Intake Total 0 355 Output Total 35 Balance -35 355 Weight 10.387 kg 99.79 kg Intake: Blood Product 0 325 Red Blood Cells Cpd As1 0 325 Lr Unit [id number] Red Blood Cells Cpd As1 0 Lr Unit [id number] Other 30 Red Blood Cells Cpd As1 30 Lr Unit [id number] Output: Stool 35 - Medications Active Medications: Active Medications Generic Name Dose Route Start Last Admin Trade Name Freq PRN Reason Stop Dose Admin Amiodarone HCl 200 mg 06/16/18 10:00 06/17/18 12:44 Cordarone PO 200 mg DAILY JAVIER Administration Atorvastatin Calcium 40 mg 06/15/18 17:00 06/16/18 17:14 Lipitor PO 40 mg DIN JAVIER Administration Ferrous Sulfate 324 mg 06/15/18 14:00 06/17/18 12:44 Feosol PO 324 mg TID JAVIER Administration NOREPINEPHRINE BIT/0.9 % NACL 4 mg in 250 mls @ 15 mls/hr 06/17/18 13:28 06/17/18 14:23 Levophed 4 Mg/ 250 Ml Ns Premixed IV 4 mcg/min .[id number] PRN 15 mls/hr TITRATE PER MD ORDER Administration Protocol 4 MCG/MIN Midodrine 5 mg 06/16/18 12:00 06/17/18 12:44 Proamatine PO 5 mg 0800,1200,1600 JAVIER Administration Pantoprazole Sodium 40 mg 06/16/18 10:00 06/17/18 12:43 Protonix Inj IVP 40 mg DAILY JAVIER Administration Sevelamer HCl 800 mg 06/16/18 09:43 06/17/18 12:44 Renagel PO 800 mg BID JAVIER Administration Tamsulosin HCl 0.4 mg 06/16/18 10:00 06/17/18 12:45 Flomax PO 0.4 mg DAILY JAVIER Administration Vitamin B Complex/Vit C/Folic Acid 1 tab 06/16/18 10:00 06/17/18 12:44 Nephro-Tyson PO 1 tab DAILY JAVIER Administration - Patient Studies Lab Studies: Microbiology Studies 06/15/18 18:25 MRSA Culture (Admit) - Final Naris MRSA NOT DETECTED Lab Studies 06/17/18 06/17/18 06/17/18 Range/Units 11:50 08:00 08:00 WBC 8.6 (4.5-11.0) 10^3/uL RBC 2.70 L (3.5-6.1) 10^6/uL Hgb 7.9 L (14.0-18.0) g/dL Hct 24.3 L (42.0-52.0) % MCV 90.0 (80.0-105.0) fl MCH 29.3 (25.0-35.0) pg MCHC 32.5 (31.0-37.0) g/dl RDW 15.9 H (11.5-14.5) % Plt Count 120 (120.0-450.0) 10^3/uL MPV 9.0 (7.0-11.0) fl Neut % (Auto) 83.0 H (50.0-68.0) % Lymph % (Auto) 6.5 L (22.0-35.0) % Green % (Auto) 7.8 H (1.0-6.0) % Eos % (Auto) 2.2 (1.5-5.0) % Baso % (Auto) 0.5 (0.0-3.0) % Lymph # (Auto) 0.6 L (1.2-3.4) Green # (Auto) 0.7 H (0.1-0.6) Eos # (Auto) 0.2 (0.0-0.7) Baso # (Auto) 0.04 (0.0-2.0) K/mm3 Absolute Neuts (auto) 7.17 H (1.4-6.5) Sodium 139 (132-148) mmol/L Potassium 4.4 (3.6-5.0) mmol/L Chloride 105 (98-107) mmol/L Carbon Dioxide 24 (21-33) mmol/L Anion Gap 14 (10-20) BUN 51 H (7-21) mg/dL Creatinine 6.2 H (0.8-1.5) mg/dl Est GFR ( Amer) 11 Est GFR (Non-Af Amer) 9 Random Glucose 61 L (70-110) mg/dL Calcium 8.1 L (8.4-10.5) mg/dL Phosphorus 4.7 H (2.5-4.5) mg/dL Magnesium 2.0 (1.7-2.2) mg/dL Total Bilirubin 0.6 (0.2-1.3) mg/dL AST 37 (17-59) U/L ALT 19 (7-56) U/L Alkaline Phosphatase 84 (38-126) U/L Total Protein 5.7 L (5.8-8.3) g/dL Albumin 2.6 L (3.0-4.8) g/dL Globulin 3.1 gm/dL Albumin/Globulin Ratio 0.8 L (1.1-1.8) Blood Type Antibody Screen Crossmatch BBK History Checked 06/17/18 06/17/18 06/16/18 Range/Units 05:20 01:05 22:00 WBC 7.2 D 9.7 D 7.1 (4.5-11.0) 10^3/uL RBC 2.47 L 2.73 L 2.80 L (3.5-6.1) 10^6/uL Hgb 7.3 L 8.1 L 8.2 L (14.0-18.0) g/dL Hct 22.6 L 24.9 L 25.5 L (42.0-52.0) % MCV 91.5 91.2 91.1 (80.0-105.0) fl MCH 29.6 29.7 29.3 (25.0-35.0) pg MCHC 32.3 32.5 32.2 (31.0-37.0) g/dl RDW 16.4 H 16.5 H 16.5 H (11.5-14.5) % Plt Count 135 140 132 (120.0-450.0) 10^3/uL MPV 9.0 8.7 8.7 (7.0-11.0) fl Neut % (Auto) 75.2 H 74.2 H 73.5 H (50.0-68.0) % Lymph % (Auto) 9.9 L 14.8 L 15.7 L (22.0-35.0) % Green % (Auto) 10.2 H 6.9 H 5.7 (1.0-6.0) % Eos % (Auto) 4.3 3.6 4.5 (1.5-5.0) % Baso % (Auto) 0.4 0.5 0.6 (0.0-3.0) % Lymph # (Auto) 0.7 L 1.4 1.1 L (1.2-3.4) Green # (Auto) 0.7 H 0.7 H 0.4 (0.1-0.6) Eos # (Auto) 0.3 0.4 0.3 (0.0-0.7) Baso # (Auto) 0.03 0.05 0.04 (0.0-2.0) K/mm3 Absolute Neuts (auto) 5.44 7.20 H 5.18 (1.4-6.5) Sodium (132-148) mmol/L Potassium (3.6-5.0) mmol/L Chloride (98-107) mmol/L Carbon Dioxide (21-33) mmol/L Anion Gap (10-20) BUN (7-21) mg/dL Creatinine (0.8-1.5) mg/dl Est GFR ( Amer) Est GFR (Non-Af Amer) Random Glucose (70-110) mg/dL Calcium (8.4-10.5) mg/dL Phosphorus (2.5-4.5) mg/dL Magnesium (1.7-2.2) mg/dL Total Bilirubin (0.2-1.3) mg/dL AST (17-59) U/L ALT (7-56) U/L Alkaline Phosphatase (38-126) U/L Total Protein (5.8-8.3) g/dL Albumin (3.0-4.8) g/dL Globulin gm/dL Albumin/Globulin Ratio (1.1-1.8) Blood Type Antibody Screen Crossmatch BBK History Checked 06/15/18 Range/Units 11:00 WBC (4.5-11.0) 10^3/uL RBC (3.5-6.1) 10^6/uL Hgb (14.0-18.0) g/dL Hct (42.0-52.0) % MCV (80.0-105.0) fl MCH (25.0-35.0) pg MCHC (31.0-37.0) g/dl RDW (11.5-14.5) % Plt Count (120.0-450.0) 10^3/uL MPV (7.0-11.0) fl Neut % (Auto) (50.0-68.0) % Lymph % (Auto) (22.0-35.0) % Green % (Auto) (1.0-6.0) % Eos % (Auto) (1.5-5.0) % Baso % (Auto) (0.0-3.0) % Lymph # (Auto) (1.2-3.4) Green # (Auto) (0.1-0.6) Eos # (Auto) (0.0-0.7) Baso # (Auto) (0.0-2.0) K/mm3 Absolute Neuts (auto) (1.4-6.5) Sodium (132-148) mmol/L Potassium (3.6-5.0) mmol/L Chloride (98-107) mmol/L Carbon Dioxide (21-33) mmol/L Anion Gap (10-20) BUN (7-21) mg/dL Creatinine (0.8-1.5) mg/dl Est GFR ( Amer) Est GFR (Non-Af Amer) Random Glucose (70-110) mg/dL Calcium (8.4-10.5) mg/dL Phosphorus (2.5-4.5) mg/dL Magnesium (1.7-2.2) mg/dL Total Bilirubin (0.2-1.3) mg/dL AST (17-59) U/L ALT (7-56) U/L Alkaline Phosphatase (38-126) U/L Total Protein (5.8-8.3) g/dL Albumin (3.0-4.8) g/dL Globulin gm/dL Albumin/Globulin Ratio (1.1-1.8) Blood Type A POSITIVE Antibody Screen Negative Crossmatch See Detail BBK History Checked Patient has bt Laboratory Results - last 24 hr 06/15/18 06/16/18 06/17/18 11:00 22:00 01:05 WBC 7.1 9.7 D RBC 2.80 L 2.73 L Hgb 8.2 L 8.1 L Hct 25.5 L 24.9 L MCV 91.1 91.2 MCH 29.3 29.7 MCHC 32.2 32.5 RDW 16.5 H 16.5 H Plt Count 132 140 MPV 8.7 8.7 Neut % (Auto) 73.5 H 74.2 H Lymph % (Auto) 15.7 L 14.8 L Green % (Auto) 5.7 6.9 H Eos % (Auto) 4.5 3.6 Baso % (Auto) 0.6 0.5 Lymph # (Auto) 1.1 L 1.4 Green # (Auto) 0.4 0.7 H Eos # (Auto) 0.3 0.4 Baso # (Auto) 0.04 0.05 Absolute Neuts (auto) 5.18 7.20 H Sodium Potassium Chloride Carbon Dioxide Anion Gap BUN Creatinine Est GFR ( Amer) Est GFR (Non-Af Amer) Random Glucose Calcium Phosphorus Magnesium Total Bilirubin AST ALT Alkaline Phosphatase Total Protein Albumin Globulin Albumin/Globulin Ratio Blood Type A POSITIVE Antibody Screen Negative Crossmatch See Detail BBK History Checked Patient has bt 06/17/18 06/17/18 06/17/18 05:20 08:00 08:00 WBC 7.2 D RBC 2.47 L Hgb 7.3 L Hct 22.6 L MCV 91.5 MCH 29.6 MCHC 32.3 RDW 16.4 H Plt Count 135 MPV 9.0 Neut % (Auto) 75.2 H Lymph % (Auto) 9.9 L Green % (Auto) 10.2 H Eos % (Auto) 4.3 Baso % (Auto) 0.4 Lymph # (Auto) 0.7 L Green # (Auto) 0.7 H Eos # (Auto) 0.3 Baso # (Auto) 0.03 Absolute Neuts (auto) 5.44 Sodium 139 Potassium 4.4 Chloride 105 Carbon Dioxide 24 Anion Gap 14 BUN 51 H Creatinine 6.2 H Est GFR ( Amer) 11 Est GFR (Non-Af Amer) 9 Random Glucose 61 L Calcium 8.1 L Phosphorus 4.7 H Magnesium 2.0 Total Bilirubin 0.6 AST 37 ALT 19 Alkaline Phosphatase 84 Total Protein 5.7 L Albumin 2.6 L Globulin 3.1 Albumin/Globulin Ratio 0.8 L Blood Type Antibody Screen Crossmatch BBK History Checked 06/17/18 11:50 WBC 8.6 RBC 2.70 L Hgb 7.9 L Hct 24.3 L MCV 90.0 MCH 29.3 MCHC 32.5 RDW 15.9 H Plt Count 120 MPV 9.0 Neut % (Auto) 83.0 H Lymph % (Auto) 6.5 L Green % (Auto) 7.8 H Eos % (Auto) 2.2 Baso % (Auto) 0.5 Lymph # (Auto) 0.6 L Green # (Auto) 0.7 H Eos # (Auto) 0.2 Baso # (Auto) 0.04 Absolute Neuts (auto) 7.17 H Sodium Potassium Chloride Carbon Dioxide Anion Gap BUN Creatinine Est GFR ( Amer) Est GFR (Non-Af Amer) Random Glucose Calcium Phosphorus Magnesium Total Bilirubin AST ALT Alkaline Phosphatase Total Protein Albumin Globulin Albumin/Globulin Ratio Blood Type Antibody Screen Crossmatch BBK History Checked Critical Care Progress Note - Nutrition Nutrition: Nutrition Category Date Time Status NPO Diet [DIET] Diets 06/17/18 Lunch Ordered Addendum Addendum: 06/17/18 17:41 MICU Attending Addendum Patient seen and examined with housestaff Agree with resident note above with the following addition/exceptions: 67m PMH of dilated cardiomyopathy, ESRD on HD, DM, HTN, arthritis, and anemia admitted 06/15 with massive GI bleed Patient had 2 more bloody BMs overnight continue to require transfusions however hemodynamically stable C-scope performed yestereday was inconclusive plan for re-scope today by GI I have also notified IR Dr Mohan in case GI is unable to located source of bleed Surgery on board as well If repeat c-scope unsuccessful, he may require a contrast study (angio vs CTA abd), nephro notified and will plan to dialyze him tomorrow. If he is stable, will plan to perform contrast study tomorrow follow by dialysis. notifed and updated trend cbc q 6hours HB > 7 goal patient is normotensive and 100% sat on RA rest of care as mentioned in above resident note Levar Gayle MD MICU Attending
--- NOTE | 2018-06-17 07:49 | CP.PCM.PN ---
Subjective - Date & Time of Evaluation Date of Evaluation: 06/17/18 Time of Evaluation: 06:30 - Subjective Subjective: 67 year old male who was admitted with bright red stool per rectum/severe anemia. Had colonoscopy done earlier which did not reveal source of blood, is going to have repeat colonoscopy tomorrow. Post procedure CBC at 9 PM showed Hgb- HCT- 8.2/25.5, at 5AM -7.3/22.6. Patient had 2 bloody bowel movements 200 cc and 50 cc around 1 AM. Anemia-7.9/24.3 today. BUN/Cr-51/6.2.today. Has PMH of : HTN. CHF. ESRD on HD. DM II. Arthritis. Cardiomyopathy with EF 22% Anemia of chronic disease. Overweight. AVM on colonoscopy,S/P BiPol cautery. Gastritis. Esophageal sq papilloma. AICD Left Upper Extremity AV Fistula. Objective - Vital Signs/Intake and Output Vital Signs (last 24 hours): Temp Pulse Resp BP Pulse Ox 97.9 F 71 11 L 102/45 L 100 06/17/18 07:12 06/17/18 07:12 06/17/18 07:12 06/17/18 07:12 06/16/18 19:12 Intake and Output: 06/17/18 06/17/18 06:59 18:59 Intake Total 0 Output Total 35 Balance -35 - Medications Medications: Current Medications Amiodarone HCl (Cordarone) 200 mg PO DAILY [facility] Last Admin: 06/16/18 09:34 Dose: 200 mg Atorvastatin Calcium (Lipitor) 40 mg PO DIN [facility] Last Admin: 06/16/18 17:14 Dose: 40 mg Bisacodyl (Dulcolax) 10 mg PO ONCE ONE Stop: 06/17/18 12:01 Ferrous Sulfate (Feosol) 324 mg PO TID [facility] Last Admin: 06/16/18 17:31 Dose: 324 mg Midodrine (Proamatine) 5 mg PO 0800,1200,1600 [facility] Last Admin: 06/16/18 17:17 Dose: 5 mg Pantoprazole Sodium (Protonix Inj) 40 mg IVP DAILY [facility] Last Admin: 06/16/18 09:32 Dose: 40 mg Sevelamer HCl (Renagel) 800 mg PO BID [facility] Last Admin: 03/28/19 17:15 Dose: 800 mg Tamsulosin HCl (Flomax) 0.4 mg PO DAILY [facility] Last Admin: 06/16/18 09:35 Dose: 0.4 mg Vitamin B Complex/Vit C/Folic Acid (Nephro-Tyson) 1 tab PO DAILY [facility] Last Admin: 06/16/18 09:35 Dose: 1 tab - Labs Labs: 06/17/18 05:20 06/16/18 06:24 PT 16.4 SECONDS (9.4-12.5) H 06/15/18 11:00 INR 1.45 06/15/18 11:00 APTT 35.4 Seconds (26.9-38.3) 06/15/18 11:00 - Constitutional Appears: Well, No Acute Distress - Head Exam Head Exam: ATRAUMATIC, NORMAL INSPECTION, NORMOCEPHALIC - Eye Exam Eye Exam: Normal appearance - ENT Exam ENT Exam: Normal External Ear Exam - Neck Exam Neck Exam: Normal Inspection - Respiratory Exam Respiratory Exam: NORMAL BREATHING PATTERN - Cardiovascular Exam Cardiovascular Exam: absent: JVD - GI/Abdominal Exam GI & Abdominal Exam: absent: Distended - Rectal Exam Rectal Exam: Deferred - Exam Additional comments: Deferred. - Extremities Exam Extremities Exam: Normal Inspection - Back Exam Back Exam: NORMAL INSPECTION - Neurological Exam Neurological Exam: Alert, Awake, Oriented x3 - Psychiatric Exam Psychiatric exam: Normal Affect, Normal Mood - Skin Skin Exam: Normal Color Assessment and Plan - Assessment and Plan (Free Text) Assessment: Hypotension. Lower GI bleeding. HTN. CHF. ESRD on HD. DM II. Arthritis. Cardiomyopathy with EF 22% Anemia of chronic disease. Overweight. AVM on colonoscopy,S/P BiPol cautery. Gastritis. Esophageal sq papilloma. AICD Left Upper Extremity AV Fistula. Plan: Serial CBC. 1 unit PRBC to be transfuse. Dialysis this am Repeat colonoscopy. Continue management.
[2018-06-17 08:42] LABS: ALB/GLOB RATIO 0.8 (1.1-1.8)
[2018-06-17 08:43] LABS: ALBUMIN 2.6 g/dL (3.0-4.8); CALCIUM 8.1 mg/dL (8.4-10.5)
--- NOTE | 2018-06-17 08:43 | CP.PCM.PN ---
Subjective - Date & Time of Evaluation Date of Evaluation: 06/17/18 Time of Evaluation: 08:15 - Subjective Subjective: (covering for Dr. Thacker) Patient underwent EGD/colonoscopy last night. He continues to have blood in the stool. Objective - Vital Signs/Intake and Output Vital Signs (last 24 hours): Temp Pulse Resp BP Pulse Ox 97.9 F 71 11 L 102/45 L 100 06/17/18 07:12 06/17/18 07:12 06/17/18 07:12 06/17/18 07:12 06/16/18 19:12 Intake and Output: 06/17/18 06/17/18 06:59 18:59 Intake Total 0 Output Total 35 Balance -35 - Medications Medications: Current Medications Amiodarone HCl (Cordarone) 200 mg PO DAILY [facility] Last Admin: 06/16/18 09:34 Dose: 200 mg Atorvastatin Calcium (Lipitor) 40 mg PO DIN [facility] Last Admin: 06/16/18 17:14 Dose: 40 mg Bisacodyl (Dulcolax) 10 mg PO ONCE ONE Stop: 06/17/18 12:01 Ferrous Sulfate (Feosol) 324 mg PO TID [facility] Last Admin: 06/16/18 17:31 Dose: 324 mg Midodrine (Proamatine) 5 mg PO 0800,1200,1600 [facility] Last Admin: 06/17/18 08:15 Dose: 5 mg Pantoprazole Sodium (Protonix Inj) 40 mg IVP DAILY [facility] Last Admin: 06/16/18 09:32 Dose: 40 mg Sevelamer HCl (Renagel) 800 mg PO BID [facility] Last Admin: 06/16/18 17:15 Dose: 800 mg Tamsulosin HCl (Flomax) 0.4 mg PO DAILY [facility] Last Admin: 06/16/18 09:35 Dose: 0.4 mg Vitamin B Complex/Vit C/Folic Acid (Nephro-Tyson) 1 tab PO DAILY [facility] Last Admin: 06/16/18 09:35 Dose: 1 tab - Labs Labs: 06/17/18 05:20 06/16/18 06:24 PT 16.4 SECONDS (9.4-12.5) H 06/15/18 11:00 INR 1.45 06/15/18 11:00 APTT 35.4 Seconds (26.9-38.3) 06/15/18 11:00 - Constitutional Appears: No Acute Distress - Head Exam Head Exam: ATRAUMATIC, NORMOCEPHALIC - Respiratory Exam Respiratory Exam: Decreased Breath Sounds, NORMAL BREATHING PATTERN - Cardiovascular Exam Cardiovascular Exam: +S1, +S2 - GI/Abdominal Exam GI & Abdominal Exam: Soft, Normal Bowel Sounds. absent: Tenderness - Neurological Exam Neurological Exam: Alert, Awake, Oriented x3 Assessment and Plan - Assessment and Plan (Free Text) Assessment: GI Bleed Dilated cardiomyopathy with EF 22% s/p defibrillator ESRD on HD HTN Diabetes Acute on chronic anemia Plan: Patient underwent EGD and colonoscopy last night. Large amount of blood was seen in the stool but no active sites of bleeding were found. Patient's hemoglobin is 7.3. Patient continues to have blood in stool. continue IV Protonix. GI, cardiology, medication technician, nephrology and surgery are all on consultation.
--- NOTE | 2018-06-17 09:00 | CP.PCM.PN ---
Subjective - Date & Time of Evaluation Date of Evaluation: 06/17/18 Time of Evaluation: 08:58 - Subjective Subjective: Mika Saravia PGY1 Progress Note for Dr. Winter Pt was examined at bedside this morning. He has no complaints today. As per RN rafy jones, patient had 2 bloody BMs overnight with dark red blood. Objective - Vital Signs/Intake and Output Vital Signs (last 24 hours): Temp Pulse Resp BP Pulse Ox 97.9 F 71 11 L 102/45 L 100 06/17/18 07:12 06/17/18 07:12 06/17/18 07:12 06/17/18 07:12 06/16/18 19:12 Intake and Output: 06/17/18 06/17/18 06:59 18:59 Intake Total 0 Output Total 35 Balance -35 - Medications Medications: Current Medications Amiodarone HCl (Cordarone) 200 mg PO DAILY [facility] Last Admin: 06/16/18 09:34 Dose: 200 mg Atorvastatin Calcium (Lipitor) 40 mg PO DIN [facility] Last Admin: 06/16/18 17:14 Dose: 40 mg Bisacodyl (Dulcolax) 10 mg PO ONCE ONE Stop: 06/17/18 12:01 Ferrous Sulfate (Feosol) 324 mg PO TID [facility] Last Admin: 06/16/18 17:31 Dose: 324 mg Midodrine (Proamatine) 5 mg PO 0800,1200,1600 [facility] Last Admin: 06/17/18 08:15 Dose: 5 mg Pantoprazole Sodium (Protonix Inj) 40 mg IVP DAILY [facility] Last Admin: 06/16/18 09:32 Dose: 40 mg Sevelamer HCl (Renagel) 800 mg PO BID [facility] Last Admin: 06/16/18 17:15 Dose: 800 mg Tamsulosin HCl (Flomax) 0.4 mg PO DAILY [facility] Last Admin: 06/16/18 09:35 Dose: 0.4 mg Vitamin B Complex/Vit C/Folic Acid (Nephro-Tyson) 1 tab PO DAILY [facility] Last Admin: 06/16/18 09:35 Dose: 1 tab - Labs Labs: 06/17/18 05:20 06/17/18 08:00 PT 16.4 SECONDS (9.4-12.5) H 06/15/18 11:00 INR 1.45 06/15/18 11:00 APTT 35.4 Seconds (26.9-38.3) 06/15/18 11:00 - Constitutional Appears: Well, No Acute Distress - Head Exam Head Exam: ATRAUMATIC, NORMOCEPHALIC - Eye Exam Eye Exam: EOMI, Normal appearance - ENT Exam ENT Exam: Mucous Membranes Moist - Neck Exam Neck Exam: Normal Inspection - Respiratory Exam Respiratory Exam: NORMAL BREATHING PATTERN. absent: Respiratory Distress - GI/Abdominal Exam GI & Abdominal Exam: Soft. absent: Distended, Guarding, Tenderness - Neurological Exam Neurological Exam: Alert, Awake, Oriented x3 - Psychiatric Exam Psychiatric exam: Normal Affect, Normal Mood - Skin Skin Exam: Normal Color Assessment and Plan - Assessment and Plan (Free Text) Assessment: 67M w/ acute GI bleed s/p 7u PRBCs Plan: - s/p EGD and colonoscopy 06/16 with findings of large amount of blood throughout colon and small amount of blood in terminal ileum. no bleeding site was seen. no blood in upper GI. - for repeat colonoscopy today - f/u further GI recommendations - NPO for colonoscopy - s/p 7u PRBCs - Monitor H/H q6H - Tranfuse if Hb < 8 - Continue to monitor bowel movements Further recommendations per Dr. Winter
[2018-06-17 11:58] LABS: BASO # 0.04 K/mm3 (0.0-2.0); BASO % 0.5 % (0.0-3.0); EOS # 0.2 (0.0-0.7); EOS % 2.2 % (1.5-5.0); HEMOGLOBIN 7.9 g/dL (14.0-18.0); LYMPH # 0.6 (1.2-3.4); LYMPH % 6.5 % (22.0-35.0); MEAN CORPUSCULAR HEMOGLOBIN 29.3 pg (25.0-35.0); MEAN CORPUSCULAR HGB CONC 32.5 g/dl (31.0-37.0); MONO # 0.7 (0.1-0.6); MONO % 7.8 % (1.0-6.0); RBC 2.7 10^6/uL (3.5-6.1); RED CELL DISTRIBUTION WIDTH 15.9 % (11.5-14.5); WHITE BLOOD COUNT 8.6 10^3/uL (4.5-11.0)
[2018-06-17] MEDS ORDERED: Bisacodyl 5mg EC Tab PO ONE (12:00)
[2018-06-17] MEDS: Multivitamin Vitamin B Complex (Nephro-Vite) Tab PO SCH (12:44)
[2018-06-17] MEDS ORDERED: NOREPINEPHRINE BIT/0.9 % NACL 4 MG/250 ML BAG IV PRN (13:28)
--- NOTE | 2018-06-17 14:38 | PN ---
DATE: 06/17/2018 CARDIOLOGY FOLLOWUP SUBJECTIVE: The patient is on dialysis with a blood pressure varying between 70 and 90 during dialysis and heart rate is in the 70s. The patient is in no acute distress. PHYSICAL EXAMINATION NECK: Negative JVD. LUNGS: Without rales. HEART: Reveals S1 and S2. EXTREMITIES: Without edema. LABORATORY DATA: Hemoglobin after transfusion is 7.3. Chemistries, BUN and creatinine are 51 and 6.2. IMPRESSION: 1. Gastrointestinal bleed workup is still continuing. 2. Probable arteriovenous malformations. 3. End-stage renal disease. 4. Severe dilated cardiomyopathy. 5. History of implantable cardioverter-defibrillator placement. 6. Marked anemia. Given these findings, I agree with transfusion again today. The patient has poor LV function, he is tolerating his acute illness so far. Kamari Watt MD
--- NOTE | 2018-06-17 15:19 | PN ---
DATE: 06/17/2018 SUBJECTIVE: The patient is seen lying in bed in the ICU. He complains of being weak. He complains of being tired. He denies any chest pain. Denies any palpitations. He underwent colonoscopy yesterday. Lot of blood was seen in entire gut. No source of bleeding was identified. He continues to have bloody effluents. He still continues to . He has received total of 7 units of PRBC so far. He has received 3 units of FFP. He is scheduled for another colonoscopy today. He is currently receiving dialysis. No heparin is being given. PHYSICAL EXAMINATION: GENERAL: Elderly male lying in bed in the ICU. VITAL SIGNS: Blood pressure 96/54, heart rate 78, respiratory rate 16, and temperature 98.4. HEENT: Normocephalic, atraumatic, positive pallor. NECK: Supple, no JVD. LUNGS: Bilateral equal air entry, bilateral equal expansion, no rales. CARDIAC: S1 and S2, regular rate and rhythm, no murmur, no rub. ABDOMEN: Soft, nondistended, nontender, bowel sounds present. EXTREMITIES: Chronic stasis changes, thickening and hardening of the skin. Intake and output 5550/1035. LABORATORY DATA: WBC 7, hemoglobin 7, hematocrit 22.6, and platelets 135. Sodium 139, potassium 4.4, chloride 105, CO2 of 24, BUN 51, creatinine 6.2, glucose 61, calcium 8.1, AST 37, ALT 19, and albumin 2.6. CURRENT MEDICATIONS: Cordarone 200 mg daily, Dulcolax, Feosol 324 t.i.d., Flomax 0.4, Lipitor 40, Nephro-Tyson, ProAmatine 5 t.i.d., Protonix, and Renagel 800 b.i.d. ASSESSMENT: 1. Persistent severe gastrointestinal bleed. The patient has received 7 units of packed red blood cells so far, hemoglobin is still 7.3. The patient underwent colonoscopy yesterday. Blood was seen throughout the colon. No source was identified. 2. Hypotension secondary to persistent gastrointestinal bleed. 3. History of dilated cardiomyopathy, decreased ejection fraction, automatic implantable cardioverter defibrillator. 4. End-stage renal disease. 5. [id number]-[id number] diabetes mellitus. 6. Recent episode of endocarditis. PLAN: 1. Hold Renagel for now. 2. Hold oral iron. 3. Continue dialysis without heparin. 4. Ultrafiltration 1 kg only. 5. Follow up repeat colonoscopy results. 6. Continue to transfuse as needed to keep hemoglobin around 9. 7. Remains critically ill. 8. Prognosis is guarded. 9. Discussed with ICU nursing staff, discussed with dialysis nursing staff, discussed with ICU residents and fiction and nonfiction writer prose. More than 35 minutes spent in the care of this critically ill patient. Grecia Young MD
[2018-06-17 15:29] VITALS: BMI 29.8
[2018-06-17 17:50] LABS: HEMOGLOBIN 7.7 g/dL (14.0-18.0); MEAN CORPUSCULAR HEMOGLOBIN 30.1 pg (25.0-35.0); MEAN PLATELET VOLUME 9.5 fl (7.0-11.0); RBC 2.56 10^6/uL (3.5-6.1); RED CELL DISTRIBUTION WIDTH 15.7 % (11.5-14.5)
[2018-06-17] MEDS ORDERED: Iohexol 240 (50 ml) ONE (18:42)
[2018-06-17] MEDS ORDERED: Iodixanol 320 MG/ML 100 ML BOTTLE IV ONE (20:56)
--- NOTE | 2018-06-17 21:16 | CP.PCM.PN ---
Subjective - Date & Time of Evaluation Date of Evaluation: 06/17/18 Time of Evaluation: 21:15 - Subjective Subjective: # 22 angiocath was inserted while he was in CT scan. Asymptomatic. Stable. Objective - Vital Signs/Intake and Output Vital Signs (last 24 hours): Temp Pulse Resp BP Pulse Ox 98 F 71 16 106/47 L 99 06/17/18 20:00 06/17/18 18:00 06/17/18 15:34 06/17/18 15:34 06/17/18 15:34 Intake and Output: 06/17/18 06/18/18 18:59 06:59 Intake Total 455 Output Total 35 Balance 420 - Medications Medications: Current Medications Amiodarone HCl (Cordarone) 200 mg PO DAILY [facility] Last Admin: 06/17/18 12:44 Dose: 200 mg Atorvastatin Calcium (Lipitor) 40 mg PO DIN [facility] Last Admin: 06/17/18 18:16 Dose: 40 mg Ferrous Sulfate (Feosol) 324 mg PO TID [facility] Last Admin: 06/17/18 18:17 Dose: 324 mg NOREPINEPHRINE BIT/0.9 % NACL (Levophed 4 Mg/ 250 Ml Ns Premixed) 4 mg in 250 mls @ 15 mls/hr IV .[id number] PRN; Protocol PRN Reason: TITRATE PER MD ORDER Last Admin: 06/17/18 14:23 Dose: 4 mcg/min, 15 mls/hr Midodrine (Proamatine) 5 mg PO 0800,1200,1600 [facility] Last Admin: 06/17/18 16:00 Dose: Not Given Pantoprazole Sodium (Protonix Inj) 40 mg IVP DAILY [facility] Last Admin: 06/17/18 12:43 Dose: 40 mg Sevelamer HCl (Renagel) 800 mg PO BID [facility] Last Admin: 06/17/18 12:44 Dose: 800 mg Tamsulosin HCl (Flomax) 0.4 mg PO DAILY [facility] Last Admin: 06/17/18 12:45 Dose: 0.4 mg Vitamin B Complex/Vit C/Folic Acid (Nephro-Tyson) 1 tab PO DAILY [facility] Last Admin: 06/17/18 12:44 Dose: 1 tab - Labs Labs: 06/17/18 17:30 06/17/18 08:00 PT 16.4 SECONDS (9.4-12.5) H 06/15/18 11:00 INR 1.45 06/15/18 11:00 APTT 35.4 Seconds (26.9-38.3) 06/15/18 11:00
[2018-06-18 00:23] LABS: HEMOGLOBIN 7.2 g/dL (14.0-18.0); MEAN CELL VOLUME 91.3 fl (80.0-105.0); MEAN CORPUSCULAR HGB CONC 32.9 g/dl (31.0-37.0); RBC 2.4 10^6/uL (3.5-6.1); RED CELL DISTRIBUTION WIDTH 15.6 % (11.5-14.5); WHITE BLOOD COUNT 7.1 10^3/uL (4.5-11.0)
[2018-06-18 06:16] LABS: HEMOGLOBIN 7.2 g/dL (14.0-18.0); MEAN CELL VOLUME 91.7 fl (80.0-105.0); MEAN CORPUSCULAR HGB CONC 32.7 g/dl (31.0-37.0); MEAN PLATELET VOLUME 9.3 fl (7.0-11.0); RBC 2.4 10^6/uL (3.5-6.1); RED CELL DISTRIBUTION WIDTH 15.6 % (11.5-14.5); WHITE BLOOD COUNT 8.6 10^3/uL (4.5-11.0)
--- NOTE | 2018-06-18 08:05 | CP.PCM.PN ---
Subjective - Date & Time of Evaluation Date of Evaluation: 06/18/18 Time of Evaluation: 07:30 - Subjective Subjective: (covering for Dr. Thacker) Patient is seen this morning. He says that he did not have any bloody bowel movements overnight. He underwent second colonoscopy yesterday. Objective - Vital Signs/Intake and Output Vital Signs (last 24 hours): Temp Pulse Resp BP Pulse Ox 98.3 F 67 11 L 135/57 L 100 06/18/18 04:00 06/18/18 05:50 06/18/18 05:50 06/18/18 05:30 06/18/18 05:50 Intake and Output: 06/18/18 06/18/18 06:59 18:59 Intake Total 450 Balance 450 - Medications Medications: Current Medications Amiodarone HCl (Cordarone) 200 mg PO DAILY [facility] Last Admin: 06/17/18 12:44 Dose: 200 mg Atorvastatin Calcium (Lipitor) 40 mg PO DIN [facility] Last Admin: 06/17/18 18:16 Dose: 40 mg Ferrous Sulfate (Feosol) 324 mg PO TID [facility] Last Admin: 06/17/18 18:17 Dose: 324 mg NOREPINEPHRINE BIT/0.9 % NACL (Levophed 4 Mg/ 250 Ml Ns Premixed) 4 mg in 250 mls @ 15 mls/hr IV .[id number] PRN; Protocol PRN Reason: TITRATE PER MD ORDER Last Admin: 06/17/18 14:23 Dose: 4 mcg/min, 15 mls/hr Midodrine (Proamatine) 5 mg PO 0800,1200,1600 [facility] Last Admin: 06/17/18 16:00 Dose: Not Given Pantoprazole Sodium (Protonix Inj) 40 mg IVP DAILY [facility] Last Admin: 06/17/18 12:43 Dose: 40 mg Sevelamer HCl (Renagel) 800 mg PO BID [facility] Last Admin: 06/17/18 12:44 Dose: 800 mg Tamsulosin HCl (Flomax) 0.4 mg PO DAILY [facility] Last Admin: 06/17/18 12:45 Dose: 0.4 mg Vitamin B Complex/Vit C/Folic Acid (Nephro-Tyson) 1 tab PO DAILY [facility] Last Admin: 06/17/18 12:44 Dose: 1 tab - Labs Labs: 06/18/18 05:30 06/17/18 08:00 PT 16.4 SECONDS (9.4-12.5) H 06/15/18 11:00 INR 1.45 06/15/18 11:00 APTT 35.4 Seconds (26.9-38.3) 06/15/18 11:00 - Constitutional Appears: No Acute Distress - Head Exam Head Exam: ATRAUMATIC, NORMOCEPHALIC - Respiratory Exam Respiratory Exam: NORMAL BREATHING PATTERN - Cardiovascular Exam Cardiovascular Exam: +S1, +S2 - GI/Abdominal Exam GI & Abdominal Exam: Soft - Neurological Exam Neurological Exam: Alert, Awake, Oriented x3 Assessment and Plan - Assessment and Plan (Free Text) Assessment: Acute Lower GI Bleed ESRD on HD dilated cardiomyopathy with EF 22% s/p AICD HTN Diabetes Plan: Patient is feeling worn out today. He went for second colonoscopy yesterday. He says that they found the bleeding site but were unable to cauterize it. CT abd/pelvis was done yesterday. results pending. Hemoglobin is 7.2 this morning after a total of 8 units of PRBCs. Patient says he has not had any bloody bowel movements last night. Patient started on Levophed for hypotension. try to wean off Levophed if possible. continue Protonix. Dialysis as per nephrology.
--- NOTE | 2018-06-18 08:18 | CP.PCM.PN ---
Subjective - Date & Time of Evaluation Date of Evaluation: 06/18/18 Time of Evaluation: 08:14 - Subjective Subjective: Gen Surg: Dr Winter Pt S&E. s/P colonoscopy yesterday demonstrating upper GI bleed prox to TI but distal to LOT, nonspecific location. Had CT scan done yesterday but was done with PO AND IV so unable to appreciate and extravasation. Remains on low dose peripheral levophed @ 2. No further bloody BMs. BP stable ~100 systolic. D iscussed case with both GI and ICU residents. Rec Mekels scan or IR angiography if pt rebleeds Objective - Vital Signs/Intake and Output Vital Signs (last 24 hours): Temp Pulse Resp BP Pulse Ox 98.3 F 67 11 L 135/57 L 100 06/18/18 04:00 06/18/18 05:50 06/18/18 05:50 06/18/18 05:30 06/18/18 05:50 Intake and Output: 06/18/18 06/18/18 06:59 18:59 Intake Total 450 Balance 450 - Medications Medications: Current Medications Amiodarone HCl (Cordarone) 200 mg PO DAILY [facility] Last Admin: 06/17/18 12:44 Dose: 200 mg Atorvastatin Calcium (Lipitor) 40 mg PO DIN [facility] Last Admin: 06/17/18 18:16 Dose: 40 mg Ferrous Sulfate (Feosol) 324 mg PO TID [facility] Last Admin: 06/17/18 18:17 Dose: 324 mg NOREPINEPHRINE BIT/0.9 % NACL (Levophed 4 Mg/ 250 Ml Ns Premixed) 4 mg in 250 mls @ 15 mls/hr IV .[id number] PRN; Protocol PRN Reason: TITRATE PER MD ORDER Last Admin: 06/17/18 14:23 Dose: 4 mcg/min, 15 mls/hr Midodrine (Proamatine) 5 mg PO 0800,1200,1600 [facility] Last Admin: 06/17/18 16:00 Dose: Not Given Pantoprazole Sodium (Protonix Inj) 40 mg IVP DAILY [facility] Last Admin: 06/17/18 12:43 Dose: 40 mg Sevelamer HCl (Renagel) 800 mg PO BID [facility] Last Admin: 06/17/18 12:44 Dose: 800 mg Tamsulosin HCl (Flomax) 0.4 mg PO DAILY [facility] Last Admin: 06/17/18 12:45 Dose: 0.4 mg Vitamin B Complex/Vit C/Folic Acid (Nephro-Tyson) 1 tab PO DAILY [facility] Last Admin: 06/17/18 12:44 Dose: 1 tab - Labs Labs: 06/18/18 05:30 06/17/18 08:00 PT 16.4 SECONDS (9.4-12.5) H 06/15/18 11:00 INR 1.45 06/15/18 11:00 APTT 35.4 Seconds (26.9-38.3) 06/15/18 11:00 - Constitutional Appears: Non-toxic, No Acute Distress - Respiratory Exam Respiratory Exam: absent: Respiratory Distress - Cardiovascular Exam Cardiovascular Exam: REGULAR RHYTHM - GI/Abdominal Exam GI & Abdominal Exam: Soft. absent: Distended, Tenderness Assessment and Plan - Assessment and Plan (Free Text) Assessment: 67M with upper GI bleed Plan: transfuse PRN recommend either d/c levo or give triple lumen (preferably the later) if give TLC dont place in upper extremities given HD history IR if pt rebleeds recommend Meckels scan d/w Dr Moy De Leon, PGY4
[2018-06-18 08:50] LABS: BASO # 0.03 K/mm3 (0.0-2.0); BASO % 0.3 % (0.0-3.0); EOS # 0.2 (0.0-0.7); EOS % 2.3 % (1.5-5.0); HEMOGLOBIN 7.7 g/dL (14.0-18.0); LYMPH # 0.8 (1.2-3.4); LYMPH % 8.5 % (22.0-35.0); MEAN CELL VOLUME 91.8 fl (80.0-105.0); MEAN CORPUSCULAR HEMOGLOBIN 30.2 pg (25.0-35.0); MEAN CORPUSCULAR HGB CONC 32.9 g/dl (31.0-37.0); MEAN PLATELET VOLUME 9.5 fl (7.0-11.0); MONO # 0.4 (0.1-0.6); MONO % 3.7 % (1.0-6.0); RBC 2.55 10^6/uL (3.5-6.1); RED CELL DISTRIBUTION WIDTH 15.8 % (11.5-14.5); WHITE BLOOD COUNT 9.6 10^3/uL (4.5-11.0)
[2018-06-18] MEDS: Multivitamin Vitamin B Complex (Nephro-Vite) Tab PO SCH (09:22)
[2018-06-18 09:36] LABS: ALB/GLOB RATIO 0.9 (1.1-1.8); ALBUMIN 2.6 g/dL (3.0-4.8); CALCIUM 7.9 mg/dL (8.4-10.5)
--- NOTE | 2018-06-18 10:30 | PN ---
DATE: 06/18/2018 SUBJECTIVE: The patient seen and examined at bedside. He is comfortable. He talks full sentences. He is not in respiratory or otherwise distress. The patient is on 1 mcg per minute of Levophed and his blood pressure 92/46, oxygen saturation 100%, respiratory rate 11, heart rate 75. Of note, the patient reports that his baseline blood pressure is somewhere in the 90s. There is no signs of end-organ dysfunction related to his hypotension. The patient does not have chest pain. He is mentating well. He is comfortable. He is not in respiratory or otherwise distress. He does have end-stage renal disease and is on chronic dialysis. The patient did not have any bloody bowel movement overnight. His hemoglobin relatively stable. OBJECTIVE: HEENT: Head and neck atraumatic. LUNGS: Clear to auscultation bilaterally. HEART: Regular rate rhythm. S1, S2 normal. ABDOMEN: Soft, nontender, nondistended. MUSCULOSKELETAL: No C/C/E. NEUROLOGIC: The patient moves all extremities spontaneously. SKIN: Moist. PSYCHIATRIC: The patient is alert, awake and oriented x3. LABORATORY DATA: WBC 8.6, hemoglobin 7.2 (relatively stable from 7.2, 5 hours prior), platelet count 120. Sodium 139, potassium 4.4, chloride 105, carbon dioxide 24, BUN 51, creatinine 6.2, glucose 18, AST 37, ALT 19. MEDICATIONS: Amiodarone, Lipitor, midodrine, norepinephrine, Protonix, Renagel, Flomax, vitamin B complex. ASSESSMENT AND PLAN: This is a 67-year-old gentleman with lower gastrointestinal bleed who presented to ICU with massive lower gastrointestinal bleed and concern for hemorrhagic shock. The patient was fluid resuscitated and had blood product transfused at 1:1:1 ratio to avoid dilutional coagulopathy. Gastrointestinal bleeding scan was unrevealing. CAT scan of the abdomen and pelvis with contrast showed hemicolitis, however GI service (Dr. Cleary) disputing that based on colonoscopy eval. Surgery service is on board. I will touch base with Gastroenterology service and surgical service as well. He does not have signs of active intraluminal bleeding at present time. Apparently, the patient is well known to surgical service in regards to prior episode of lower gastrointestinal bleed. I think that he has mild hypotension as his baseline. We will try to taper off norepinephrine. We will continue with midodrine which the patient was on prior to admission to ICU. We will continue to target euvolemia euglycemia and oxygen saturation more than 90%. We will continue with deep venous thrombosis, gastrointestinal prophylaxis. In case patient bleeds again, will repeat GI bleeding scan and patient will go to OR with or without intra-op enteroscopy depending on bleeding nuclear scan-->that was discussed between GI service and surgical service. Addendum: CT abdomen and pelvis also revealed distended bladder and questionable b/l pyelonephritis. we will staright cath him (patient is on chronic HD). I will touch base with ID weather abx are warranted or not as well. patient is afebrile, no leukocytosis, asymptomatic. Patient did drop Hb down to 6.5, 2 untis of PRBC were given during HD. Bleed nuclear scan was ordered. GI and surgical service notified. Patient is hemodynamically stable. off of levophed. will continue with serial CBC, coags. ccm time 40 min Fuad Bruner MD [facility]
[2018-06-18 11:09] LABS: BASO # 0.02 K/mm3 (0.0-2.0); BASO % 0.2 % (0.0-3.0); EOS # 0.2 (0.0-0.7); EOS % 2.4 % (1.5-5.0); LYMPH # 0.5 (1.2-3.4); LYMPH % 5.2 % (22.0-35.0); MEAN CELL VOLUME 91.7 fl (80.0-105.0); MEAN CORPUSCULAR HEMOGLOBIN 29.8 pg (25.0-35.0); MEAN CORPUSCULAR HGB CONC 32.5 g/dl (31.0-37.0); MEAN PLATELET VOLUME 9.2 fl (7.0-11.0); MONO # 0.7 (0.1-0.6); MONO % 6.7 % (1.0-6.0); RBC 2.18 10^6/uL (3.5-6.1); RED CELL DISTRIBUTION WIDTH 15.8 % (11.5-14.5); WHITE BLOOD COUNT 9.7 10^3/uL (4.5-11.0)
[2018-06-18 11:11] LABS: HEMOGLOBIN 6.5 g/dL (14.0-18.0)
--- NOTE | 2018-06-18 11:40 | PN ---
DATE: 06/18/2018 SUBJECTIVE: The patient is status post transfusions as well as being followed carefully and underwent a GI workup for his recurrent bleeding. PHYSICAL EXAMINATION: VITAL SIGNS: Blood pressure 135/57, heart rates in the 60s. NECK: Negative JVD. LUNGS: Without rales. HEART: S1 and S2. EXTREMITIES: Without change. LABORATORY DATA: Hemoglobin is 7.7, BUN and creatinine are unchanged. IMPRESSION: 1. Recurrent lower gastrointestinal bleed. 2. End-stage renal disease. 3. Severe dilated cardiomyopathy. 4. History of implantable cardioverter defibrillator placement. 5. Anemia. PLAN: Given these findings, the patient's poor LV function as well as his comorbidities will make abdominal surgery at increased risk. However, because of his recurrent bleeding, surgery may be the only option to stop his recurrent GI bleed. Extensive discussion with GI and automatic splicing machine operator for plans for possible surgery are being made. Kamari Watt MD
--- NOTE | 2018-06-18 11:46 | CT ---
Date of service: 06/17/2018 PROCEDURE: CT Abdomen and Pelvis with contrast HISTORY: GI bleeding COMPARISON: 03/17/2018 TECHNIQUE: Contrast dose: 100 cc of Visipaque Radiation dose: Total exam DLP = 998.51 mGy-cm. This CT exam was performed using one or more of the following dose reduction techniques: Automated exposure control, adjustment of the mA and/or kV according to patient size, and/or use of iterative reconstruction technique. FINDINGS: LOWER THORAX: Unremarkable. LIVER: Unremarkable. No gross lesion or ductal dilatation. GALLBLADDER AND BILE DUCTS: Small gallstone. PANCREAS: Unremarkable. No gross lesion or ductal dilatation. SPLEEN: Unremarkable. ADRENALS: Unremarkable. No mass. KIDNEYS AND URETERS: Unremarkable. No hydronephrosis. No solid mass. VASCULATURE: Unremarkable. No aortic aneurysm. Aortic calcification. BOWEL: Unremarkable. No obstruction. No gross mural thickening. APPENDIX: Normal appendix. PERITONEUM: Unremarkable. No free fluid. No free air. LYMPH NODES: Unremarkable. No enlarged lymph nodes. BLADDER: Mild mural thickening. This could be due to outlet obstruction versus cystitis REPRODUCTIVE: The prostate is mildly enlarged measuring 62 mm transversely. BONES: Disc degeneration at L5-S1 OTHER FINDINGS: The report concurs with the preliminary [facility] report IMPRESSION: No acute intra-abdominal findings
--- NOTE | 2018-06-18 21:37 | PN ---
DATE: 06/18/2018 SUBJECTIVE: The patient is seen lying in bed in the ICU. He is appearing very weak. He is depressed. He is very upset about the results of the colonoscopy. He had a colonoscopy done yesterday. He was found to have a source of bleeding in the small intestine. Surgical intervention probably is needed. He is currently receiving dialysis. He had a CT scan of his abdomen with contrast last night. The CT scan of the abdomen did not show any abnormalities. Colonoscopy showed internal hemorrhoids, clotted blood was found in the entire colon, ilium contained red blood with small clots, no active bleeding site was found, probable small bowel bleeding. PHYSICAL EXAMINATION: GENERAL: Elderly male lying in bed in the ICU. VITAL SIGNS: Blood pressure 139/86, heart rate 74, respiratory rate 18, temperature 98.6. HEENT: Normocephalic, atraumatic, positive pallor. NECK: Supple, no JVD. LUNGS: Bilateral equal entry, bilateral equal expansion, no rales appreciated anteriorly. CARDIAC: S1 and S2, regular rate and rhythm, no murmur, no rub. ABDOMEN: Soft, nondistended, nontender, bowel sounds present. EXTREMITIES: No lower extremity edema. INTAKE AND OUTPUT: 905/35. LABORATORY DATA: WBC 9.7, hemoglobin 6.5, hematocrit 20, platelets 114. Sodium 133, potassium 4.3, chloride 101, CO2 of 20, BUN 30, creatinine 4.8, glucose 55, calcium 7.9 and albumin 2.6. CURRENT MEDICATIONS: Amiodarone 200, Feosol 325 b.i.d., Flomax 0.4, Lipitor, ProAmatine 5 t.i.d., Protonix, sevelamer 800 t.i.d. ASSESSMENT AND PLAN: 1. Severe symptomatic gastrointestinal blood loss, source likely to be in the small bowel. Colonoscopy x2 did not reveal any source of bleeding but bright red blood found in the ileum, clotted blood in the colon, large bowel. 2. Was hemodynamically compromised yesterday. Blood pressure seems to be better right now. 3. Severe anemia. 4. End-stage renal disease. 5. Non-insulin dependent diabetes mellitus. 6. History of dilated cardiomyopathy, decreased ejection fraction, automatic implantable cardioverter defibrillator. PLAN: 1. Dialysis again today, ultrafiltrate about 1000. 2. Transfuse 2 units of PRBC in dialysis. 3. Continue to monitor H and H closely. 4. Awaiting surgical plan for possible laparotomy? 5. Discussed with dialysis nurse, discussed with ICU nursing staff, discussed with ICU resident. More than 35 minutes spent in the care coordination of this critically ill patient. Grecia Young MD
--- NOTE | 2018-06-19 01:17 | PN ---
DATE: 06/18/2018 SUBJECTIVE: This patient was seen evaluated earlier in the Intensive Care Unit. Discussed with Dr. Winter and also with Dr. Bruner, cuff cutter. This patient did have repeat colonoscopy with enteroscopy done yesterday. The patient had episodes of dark stool with clots. The patient had nearly 8 units of transfusion given. The patient had colonoscopy that showed blood throughout the colon and the clots which were removed lavage. The proximal terminal ileum, the part of the ileum closer to the IC valve did not have any significant blood, however, when the scope was advanced up to 20 cm there was significant amount of blood noticed. Suggestive of more from the small bowel bleed. During the colonoscopy, it was also found to have some blood coming out from the IC valve was noticed. Endoscopic impression was more towards the small bowel bleeding. However, the patient did also has significant diverticulosis. History of AVMs in the colon before, which was cauterized. The patient did have an endoscopy done earlier that showed no blood in the stomach or duodenum. PHYSICAL EXAMINATION: GENERAL: The patient in the ICU. At the time of examination, the patient remained afebrile. VITAL SIGNS: Blood pressure was 96/46, pulse 75, respirations 13, and O2 saturation 100%. HEENT: Atraumatic and anicteric. NECK: Supple. HEART: S1 and S2 heard. LUNGS: Bilateral air entry present, slightly reduced at the base. ABDOMEN: Soft. There is no tenderness present. LABORATORY DATA: Hemoglobin was 7.7, hematocrit 23.4, WBC 9.6, and platelets 135. Chemistry showed BUN 30, creatinine 4.8. The patient had CT scan of the abdomen and pelvis with p.o. and IV contrast done which was reviewed no acute intra-abdominal pathology was noticed in that. IMPRESSION: 1. 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 The patient had multiple transfusions of the blood given. The patient did have colonoscopies done and also enteroscopy of the terminal and distal ileum was done. It appears that endoscopically, there was some blood in the terminal ileum up to 20 cm from the ileocecal valve suggestive of possible small bowel bleeding. However, there is significant diverticulosis seen in the sigmoid colon possibility of colonic source of bleeding cannot be completely ruled out. 2. I had a detailed discussion with the cuff cutter and also with Dr. Winter. The plan is to consider repeat bleeding scan if there is any active rebleeding. Consider transfusion of the platelets in the view of the renal failure induced platelets dysfunction. 3. The patient may need intraoperative enteroscopy if the patient need to go to the OR. Thank you very much for allowing me to participate in the care of the patient. Foreign Wynn MD MTDSola
[2018-06-19 05:09] LABS: LYMPH % 7.1 % (22.0-35.0); MEAN CELL VOLUME 91.8 fl (80.0-105.0); MEAN CORPUSCULAR HEMOGLOBIN 30.3 pg (25.0-35.0); RBC 2.31 10^6/uL (3.5-6.1); RED CELL DISTRIBUTION WIDTH 15.6 % (11.5-14.5); WHITE BLOOD COUNT 8.2 10^3/uL (4.5-11.0)
[2018-06-19 05:10] LABS: BASO # 0.02 K/mm3 (0.0-2.0); BASO % 0.2 % (0.0-3.0); EOS # 0.2 (0.0-0.7); EOS % 2.9 % (1.5-5.0); LYMPH # 0.6 (1.2-3.4); MONO # 0.7 (0.1-0.6); MONO % 8.6 % (1.0-6.0)
--- NOTE | 2018-06-19 08:27 | CP.PCM.PN ---
Subjective - Date & Time of Evaluation Date of Evaluation: 06/19/18 Time of Evaluation: 08:00 - Subjective Subjective: Patient is seen this morning. He is lying in bed 1 in the critical care unit. He says there was some blood in the stool yesterday, but very little. He denies chest pain or shortness of breath. Objective - Vital Signs/Intake and Output Vital Signs (last 24 hours): Temp Pulse Resp BP Pulse Ox 98.6 F 76 13 122/60 99 06/19/18 04:00 06/19/18 06:00 06/19/18 01:00 06/19/18 01:00 06/19/18 01:00 Intake and Output: 06/19/18 06/19/18 06:59 18:59 Intake Total 1208 Output Total 150 Balance 1058 - Medications Medications: Current Medications Acetaminophen (Tylenol 325mg Tab) 650 mg PO Q6H PRN PRN Reason: Pain, moderate (4-7) Last Admin: 06/18/18 21:10 Dose: 650 mg Amiodarone HCl (Cordarone) 200 mg PO DAILY [facility] Last Admin: 06/18/18 09:22 Dose: Not Given Atorvastatin Calcium (Lipitor) 40 mg PO DIN [facility] Last Admin: 06/18/18 18:20 Dose: 40 mg Ferrous Sulfate (Feosol) 324 mg PO TID [facility] Last Admin: 06/18/18 18:20 Dose: 324 mg NOREPINEPHRINE BIT/0.9 % NACL (Levophed 4 Mg/ 250 Ml Ns Premixed) 4 mg in 250 mls @ 15 mls/hr IV .[id number] PRN; Protocol PRN Reason: TITRATE PER MD ORDER Last Titration: 06/18/18 09:15 Dose: 0 mcg/min, 0 mls/hr Midodrine (Proamatine) 5 mg PO 0800,1200,1600 [facility] Last Admin: 06/18/18 18:20 Dose: 5 mg Pantoprazole Sodium (Protonix Inj) 40 mg IVP DAILY [facility] Last Admin: 06/18/18 09:21 Dose: 40 mg Sevelamer HCl (Renagel) 800 mg PO BID [facility] Last Admin: 06/18/18 18:21 Dose: Not Given Tamsulosin HCl (Flomax) 0.4 mg PO DAILY [facility] Last Admin: 06/18/18 09:23 Dose: 0.4 mg Vitamin B Complex/Vit C/Folic Acid (Nephro-Tyson) 1 tab PO DAILY [facility] Last Admin: 06/18/18 09:22 Dose: 1 tab - Labs Labs: 06/19/18 04:40 06/18/18 08:30 PT 16.4 SECONDS (9.4-12.5) H 06/15/18 11:00 INR 1.45 06/15/18 11:00 APTT 35.4 Seconds (26.9-38.3) 06/15/18 11:00 - Constitutional Appears: No Acute Distress - Head Exam Head Exam: ATRAUMATIC, NORMOCEPHALIC - Respiratory Exam Respiratory Exam: Decreased Breath Sounds, NORMAL BREATHING PATTERN - Cardiovascular Exam Cardiovascular Exam: +S1, +S2 - GI/Abdominal Exam GI & Abdominal Exam: Soft. absent: Tenderness - Neurological Exam Neurological Exam: Alert, Awake, CN II-XII Intact, Oriented x3 Assessment and Plan - Assessment and Plan (Free Text) Assessment: Lower GI Bleed ESRD on HD Cardiomyopathy with EF 22% HTN Plan: Patient's hemoglobin is 7 despite receiving a total of 10 units PRBCs. He has had colonoscopy and colonoscopy with enteroscopy. Blood was seen but no lesion was found. Possible small bowel bleeding. Gastroenterology and Surgery are on consultation. continue Protonix. continue dialysis as per nephrology. Patient appears to be off Levophed. continue to monitor blood pressure.
--- NOTE | 2018-06-19 09:07 | CP.PCM.PN ---
Subjective - Date & Time of Evaluation Date of Evaluation: 06/19/18 Time of Evaluation: 09:03 - Subjective Subjective: Surgery Progress note. Dr. Winter Pt seen and examined at bedside. Patient received 2U PRBCs in dialysis yesterday, inappropriate Hb response (6.5->7.2). Patient also received 2U FFP and 1U platelets overnight. Currently hemodynamically stable. Has been off pressors since yesterday AM. Nuclear RBC bleeding scan performed yesterday a fternoon, unable to localize, awaiting official radiology read. Patient denies any chest pain, no N/V/D. No sob. Objective - Vital Signs/Intake and Output Vital Signs (last 24 hours): Temp Pulse Resp BP Pulse Ox 98.6 F 76 13 122/60 99 06/19/18 04:00 06/19/18 06:00 06/19/18 01:00 06/19/18 01:00 06/19/18 01:00 Intake and Output: 06/19/18 06/19/18 06:59 18:59 Intake Total 1208 Output Total 150 Balance 1058 - Medications Medications: Current Medications Acetaminophen (Tylenol 325mg Tab) 650 mg PO Q6H PRN PRN Reason: Pain, moderate (4-7) Last Admin: 06/18/18 21:10 Dose: 650 mg Amiodarone HCl (Cordarone) 200 mg PO DAILY [facility] Last Admin: 06/18/18 09:22 Dose: Not Given Atorvastatin Calcium (Lipitor) 40 mg PO DIN [facility] Last Admin: 06/18/18 18:20 Dose: 40 mg Ferrous Sulfate (Feosol) 324 mg PO TID [facility] Last Admin: 06/18/18 18:20 Dose: 324 mg NOREPINEPHRINE BIT/0.9 % NACL (Levophed 4 Mg/ 250 Ml Ns Premixed) 4 mg in 250 mls @ 15 mls/hr IV .[id number] PRN; Protocol PRN Reason: TITRATE PER MD ORDER Last Titration: 06/18/18 09:15 Dose: 0 mcg/min, 0 mls/hr Midodrine (Proamatine) 5 mg PO 0800,1200,1600 [facility] Last Admin: 06/19/18 08:06 Dose: 5 mg Pantoprazole Sodium (Protonix Inj) 40 mg IVP DAILY [facility] Last Admin: 06/18/18 09:21 Dose: 40 mg Sevelamer HCl (Renagel) 800 mg PO BID [facility] Last Admin: 06/18/18 18:21 Dose: Not Given Tamsulosin HCl (Flomax) 0.4 mg PO DAILY [facility] Last Admin: 06/18/18 09:23 Dose: 0.4 mg Vitamin B Complex/Vit C/Folic Acid (Nephro-Tyson) 1 tab PO DAILY [facility] Last Admin: 06/18/18 09:22 Dose: 1 tab - Labs Labs: 06/19/18 04:40 06/18/18 08:30 PT 16.4 SECONDS (9.4-12.5) H 06/15/18 11:00 INR 1.45 06/15/18 11:00 APTT 35.4 Seconds (26.9-38.3) 06/15/18 11:00 - Constitutional Appears: Well, No Acute Distress - Head Exam Head Exam: ATRAUMATIC, NORMAL INSPECTION, NORMOCEPHALIC - Eye Exam Eye Exam: EOMI, Normal appearance. absent: Scleral icterus - ENT Exam ENT Exam: Mucous Membranes Moist - Respiratory Exam Respiratory Exam: NORMAL BREATHING PATTERN. absent: Accessory Muscle Use, Respiratory Distress - Cardiovascular Exam Cardiovascular Exam: RRR. absent: JVD - GI/Abdominal Exam GI & Abdominal Exam: Soft. absent: Distended, Firm, Guarding, Tenderness, Rebound - Extremities Exam Extremities Exam: Normal Inspection. absent: Calf Tenderness - Neurological Exam Neurological Exam: Alert, Awake, Oriented x3 - Skin Skin Exam: Dry, Intact, Normal Color, Warm Assessment and Plan - Assessment and Plan (Free Text) Assessment: 67yo M with slow GI bleed likely distal to the ligament of trietz. However, unable to localize whether it is small intestine or coming from severe diverticular disease in the sigmoid. s/p Colonoscopy x 2 by GI team. Plan: - Continue to monitor H/H. Transfuse at Hb <8 prn - Consider a Meckel's scan - IR if patient has severe rebleeding - Will consider OR next week and plan to coordinate with GI team for possible on-table scope - diet recs as per GI Sim Wilson PGY2 Surgery
[2018-06-19] MEDS: Multivitamin Vitamin B Complex (Nephro-Vite) Tab PO SCH (09:49)
--- NOTE | 2018-06-19 11:07 | NM ---
Date of service: 06/18/2018 PROCEDURE: Nuclear medicine gastrointestinal bleeding scan. HISTORY: active gi bleed COMPARISON: None available. TECHNIQUE: 4ccof patient blood was withdrawn and mixed with 20.0mCi of technetium ultra tagged. Images of the abdomen and pelvis were obtained in the anterior projection at 1 min intervals over a period of 45 min. FINDINGS: No abnormal extravasation of tracer was observed throughout the exam to indicate active bleeding within or outside the gastrointestinal tract. Physiologic activity was seen in the heart, liver, spleen and blood vessels and bladder. The report concurs with the preliminary [facility] report IMPRESSION: No evidence of active gastrointestinal bleeding.
[2018-06-19 12:53] LABS: INR 1.19; PROTHROMBIN TIME 13.4 SECONDS (9.4-12.5)
[2018-06-19 15:36] LABS: PH,URINE 6.5 (4.7-8.0); URINE BILIRUBIN SMALL (NEGATIVE); URINE BLOOD LARGE (NEGATIVE); URINE GLUCOSE (UA) 100 mg/dL (NEGATIVE); URINE LEUKOCYTE ESTERASE LARGE Leu/uL (NEGATIVE); URINE PROTEIN >=300 mg/dL (<30 mg/dL); URINE UROBILINOGEN 0.2 E.U./dL (<1 E.U./dL)
[2018-06-19 15:38] LABS: URINE APPEARANCE TURBID (CLEAR); URINE COLOR YELLOW (YELLOW)
[2018-06-19 15:45] LABS: URINE BACTERIA MANY /hpf; URINE EPITHELIAL CELLS 0 - 2 /hpf (0-5); URINE RBC TNTC /hpf (0-2); URINE WBC TNTC /hpf (0-6)
--- NOTE | 2018-06-19 17:03 | PN ---
DATE: 06/19/2018 SUBJECTIVE: The patient is seen and examined at bedside. He is comfortable. He talks in full sentences. He is not in respiratory or otherwise distress. PHYSICAL EXAMINATION: VITAL SIGNS: Temperature is 98.6, blood pressure 109/49, respiratory rate 18, heart rate 70, oxygen saturation 99% on room air. HEENT: Head and neck atraumatic. LUNGS: Clear to auscultation bilaterally. HEART: Regular rate rhythm. S1, S2 normal. ABDOMEN: Soft, nontender, nondistended. The patient does have a little bit distended bladder, and when pressed, he feels urge to urinate. MUSCULOSKELETAL: No C/C/E. NEUROLOGIC: The patient moves all extremities spontaneously. SKIN: Moist. PSYCHIATRIC: The patient is alert, awake and oriented x3. LABORATORY DATA: WBC 8.2, hemoglobin 7 (up from 6.5 after 2 units of PRBC), platelet count 125. Coags are pending. MEDICATIONS: Amiodarone, Lipitor, Feosol, midodrine, norepinephrine is off, Renagel, Protonix, Flomax. Nuclear scan yesterday showed no localized area of bleeding. ASSESSMENT AND PLAN: This is a 67-year-old gentleman with recurrent and now continuous lower gastrointestinal bleed versus distal upper gastrointestinal bleed whose nuclear bleeding scan so far remains nonrevealing. Based on yesterdays plan that was put forth and discussed with Surgery and Gastroenterology service, the patient will be going for intraop enteroscopy with resection of the bleeding segment of the gastrointestinal tract. We will continue to target euvolemia, euglycemia, normothermia, and oxygen saturation more than 90%. We will continue to maintain hemoglobin more than 8 (Sully et al, Aliment Pharmacol Ther 2019; 49:919-925). Cardiology service is following the patient to optimize cardiac status prior to surgery. Deep venous thrombosis and gastrointestinal prophylaxis. ccm time 40 min Fuad Bruner MD [facility]
[2018-06-19 22:43] LABS: HEMOGLOBIN 9.1 g/dL (14.0-18.0); MEAN CELL VOLUME 89.5 fl (80.0-105.0); MEAN CORPUSCULAR HEMOGLOBIN 29.8 pg (25.0-35.0); MEAN CORPUSCULAR HGB CONC 33.3 g/dl (31.0-37.0); MEAN PLATELET VOLUME 9.3 fl (7.0-11.0); RBC 3.05 10^6/uL (3.5-6.1); RED CELL DISTRIBUTION WIDTH 15.5 % (11.5-14.5); WHITE BLOOD COUNT 8.7 10^3/uL (4.5-11.0)
--- NOTE | 2018-06-20 00:21 | PN ---
DATE: 06/19/2018 SUBJECTIVE: This patient was seen and evaluated earlier, discussed with the surgical team and ICU staff. Did not have any further episodes of bleeding since 5.30 a.m. Patient remains hemodynamic otherwise stable. The bleeding scan yesterday was found to be negative. PHYSICAL EXAMINATION: VITAL SIGNS: Temperature remains afebrile, blood pressure is 130/65, respirations is 15, and O2 saturation is 100%. HEENT: Atraumatic and anicteric. NECK: Supple. HEART: S1 and S2 heard. LUNGS: Bilateral air entry present. ABDOMEN: Soft. EXTREMITIES: No cyanosis. No clubbing. NEUROLOGIC: Alert and oriented. Moves all the extremities. Patient is anxious. LABORATORY DATA: Hemoglobin this morning was 6.5 and at 8.30 it was 7.7, It came down to 6.5 but no obvious further blood bowel movements noticed. Patient received blood transfusion. The patient's hemoglobin yesterday was 6.5 and this morning it was 7. Patient received totally 11 unit transfused with the 5 units of fresh frozen plasma and leucocytes of 1. The patient also received one unit of single donor platelets IMPRESSION AND PLAN: This 67-year-old patient was admitted with the massive gastrointestinal bleeding, 11 units blood transfusion given so far. Patient had end-stage renal disease on hemodialysis, had an upper GI endoscopy done which was negative, colonoscopy showed throughout the colon there was clot of blood, had a repeat colonoscopy done showed diverticulosis and blood coming out from the terminal ileum and very distal terminal ileum was clear. However, about 20 cm proximal from the IC valve, there was some blood clots noticed in the ileum. Further passage of the scope could not be achieved because of the limitation of the length of the scope of 210 cm. The patient did have a drop in blood count then had a repeat bleeding scan done which was negative. The patient did receive platelet transfusion. Since then no further episodes of bleeding noticed. The patient's likely cause of the bleeding appears to be small bowel in view of the blood present in the distal small bowel in the ileum. However, the patient also had diverticulosis and history of AVMs in the past, cannot rule out colonic bleeding; however, there is no active bleeding. It should be also considered in the differential diagnosis. Continue to followup the hemoglobin, hematocrit, surgery is planned, Meckel's scan in the a.m. Plan for OR with the intraoperative enteroscopy, timing will be based on the clinical course. I had discussed with the Dr. Winter earlier today. Thank you very much for allowing us to participate in the care of the patient. Foreign Wynn MD MTDS[facility]
--- NOTE | 2018-06-20 01:01 | CON ---
DATE: 06/19/2018 LOCATION: The patient is seen earlier today in [facility], bed 1. CHIEF COMPLAINT: Pelvic fullness and occasional symptoms times several days. HISTORY OF PRESENT ILLNESS: This is a 67-year-old male known to me from previous admissions with history of chronic renal failure, on hemodialysis; coronary artery disease; congestive heart failure; diabetes mellitus; history of morbid obesity with BMI of 40; history of obstructive sleep apnea, on CPAP; hypertension; history of ESBL E. 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 The patient had a CAT scan of the abdomen, which showed questionable cystitis. The patient has low-grade fevers at home. No chills. He is complaining of symptoms and pelvic fullness and occasional dysuria and frequency when he does have urine. No headache. No blurred vision. No chest pain. No shortness of breath. REVIEW OF SYSTEMS: A 12-point review of systems is performed. PAST MEDICAL HISTORY: Significant for ESBL E. 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 PAST SURGICAL HISTORY: Significant for pacemaker, left foot surgery, and left AV shunt placement. ALLERGIES: THE PATIENT HAS NO KNOWN ALLERGIES. MEDICATIONS AT HOME: Reviewed. PHYSICAL EXAMINATION: GENERAL: The patient is seen in bed. VITAL SIGNS: Temperature of 98, blood pressure is 109/40, respiratory rate of 18, and heart rate of 76. HEENT: Unremarkable. NECK: Supple. LUNGS: Decreased breath sounds. HEART: Normal S1 and S2. LABORATORY DATA: Reveals a white count of 8.2. Coagulation is noted. Blood gases were reviewed. Chemistries are reviewed. Creatinine is 4.8. Microbiology is noted. No urinalysis and urine culture is noted. The patient had a CAT scan of the abdomen and pelvis, which were reviewed. ASSESSMENT AND PLAN: This is a 67-year-old male with cystitis with acute blood loss anemia secondary to gastrointestinal tract. We will start the patient on meropenem and adjust for renal insufficiency and we will order blood cultures x2, urinalysis and urine culture. If the patient is unable to pass the urine, we will do a straight catheter as discussed with nursing to obtain urinalysis, urine culture, blood cultures empirically. After the cultures are done, we will start meropenem and we will follow with you. Charlie Taylor MD
--- NOTE | 2018-06-20 02:43 | PN ---
DATE: 06/19/2018 CARDIOLOGY FOLLOWUP SUBJECTIVE: The patient continues to have lower GI bleed. PHYSICAL EXAMINATION: VITAL SIGNS: Blood pressure 109/49, heart rate is in the 70s. NECK: Negative JVD. LUNGS: Without rales. HEART: S1 and S2. EXTREMITIES: Without edema. LABORATORY DATA: Hemoglobin is 7. Chemistries; glucose is 76, creatinine is 4.8. IMPRESSION: 1. Recurrent and persistent lower gastrointestinal bleed. 2. Dilated cardiomyopathy. 3. End-stage renal disease. 4. Anemia. 5. History of implantable cardioverter defibrillator placement. Given these findings, the patient will need to have an operative strategy, exactly where they would operate is the question. I will recheck his coags. Kamari Watt MD
--- NOTE | 2018-06-20 07:58 | CP.CCUPN ---
<LucasAlbert Wale - Last Filed: 06/20/18 12:10> CCU Subjective - Physician Review Events Since Last Encounter (Free Text): 06/20/18 07:47 pt straight cath yesterday, urine was green and foul smelling, no blood in the stool for the past 24 hours Subjective (Free Text): 06/16/18 06:59 Pt seen and examined in the ICU, reports 2 episodes of BRBPR since arrival, reports daily ASA use. Denies chest pain, SOB, lightheadedness. 06/17/18 06:56 Pt seen and examined, pt has no new complaints at this time. Denies chest pain, SOB, dizziness. CCU Objective - Vital Signs / Intake & Output Vital Signs (Last 4 hours): Vital Signs Temp Pulse 06/20/18 06:00 75 06/20/18 04:00 98.6 F Intake and Output (Last 8hrs): Intake & Output 06/19/18 06/20/18 06/20/18 22:59 06:59 14:59 Intake Total 1020 425 Output Total 195 0 Balance 825 425 Weight 218 lb Intake: IV 100 Right Forearm 100 Oral 360 0 Blood Product 650 325 Red Blood Cells Cpd As1 325 Lr Unit [id number] Red Blood Cells Cpd As1 325 Lr Unit [id number] Other 10 Red Blood Cells Cpd As1 10 Lr Unit [id number] Output: Urine 195 0 Straight 145 0 Urine, Voided 50 0 Emesis 0 Other: # Bowel Movements 0 1 - Physical Exam Physical Exam Limitations: Negative for: Altered Mental Status Head: Positive for: Atraumatic, Normocephalic Pupils: Positive for: PERRL Extroacular Muscles: Positive for: EOMI Conjunctiva: Positive for: Normal Mouth: Positive for: Moist Mucous Membranes Neck: Positive for: Normal Range of Motion Respiratory/Chest: Positive for: Clear to Auscultation, Good Air Exchange. Negative for: Respiratory Distress, Accessory Muscle Use Cardiovascular: Positive for: Regular Rate and Rhythm, Normal S1, S2. Negative for: Murmurs Abdomen: Negative for: Tenderness, Distention, Peritoneal Signs Rectal: Positive for: Occult Blood (bright red blood ) Back: Positive for: Normal Inspection Upper Extremity: Positive for: Normal Inspection, Other (left AV fistula). Negative for: Cyanosis, Edema Lower Extremity: Positive for: Normal Inspection. Negative for: Edema Neurological: Positive for: GCS=15, CN II-XII Intact, Speech Normal Skin: Positive for: Warm, Dry, Normal Color. Negative for: Rashes Psychiatric: Positive for: Alert, Oriented x 3, Normal Insight, Normal Concentration - Medications Active Medications: Active Medications Generic Name Dose Route Start Last Admin Trade Name Freq PRN Reason Stop Dose Admin Acetaminophen 650 mg 06/18/18 20:52 06/18/18 21:10 Tylenol 325mg Tab PO 650 mg Q6H PRN Administration Pain, moderate (4-7) Amiodarone HCl 200 mg 06/16/18 10:00 06/19/18 09:50 Cordarone PO 200 mg DAILY JAVIER Administration Atorvastatin Calcium 40 mg 06/15/18 17:00 06/19/18 17:48 Lipitor PO 40 mg DIN JAVIER Administration Ferrous Sulfate 324 mg 06/15/18 14:00 06/19/18 17:48 Feosol PO 324 mg TID JAVIER Administration Meropenem 250 mg/ Sodium 100 mls @ 100 mls/hr 06/19/18 22:00 06/19/18 22:10 Chloride IVPB 06/26/18 22:01 100 mls/hr Q12H JAVIER Administration Protocol Midodrine 5 mg 06/16/18 12:00 06/19/18 16:34 Proamatine PO 5 mg 0800,1200,1600 JAVIER Administration Pantoprazole Sodium 40 mg 06/16/18 10:00 06/19/18 09:50 Protonix Inj IVP 40 mg DAILY JAVIER Administration Sevelamer HCl 800 mg 06/16/18 09:43 06/19/18 17:49 Renagel PO Not Given BID JAVIER Tamsulosin HCl 0.4 mg 06/16/18 10:00 06/19/18 09:49 Flomax PO 0.4 mg DAILY JAVIER Administration Vitamin B Complex/Vit C/Folic Acid 1 tab 06/16/18 10:00 06/19/18 09:49 Nephro-Tyson PO 1 tab DAILY JAVIER Administration - Patient Studies Lab Studies: Lab Studies 06/20/18 06/20/18 06/19/18 Range/Units 05:05 00:06 22:31 WBC (4.5-11.0) 10^3/uL RBC (3.5-6.1) 10^6/uL Hgb (14.0-18.0) g/dL Hct (42.0-52.0) % MCV (80.0-105.0) fl MCH (25.0-35.0) pg MCHC (31.0-37.0) g/dl RDW (11.5-14.5) % Plt Count (120.0-450.0) 10^3/uL MPV (7.0-11.0) fl PT (9.4-12.5) SECONDS INR POC Glucose (mg/dL) 68 65 65 (65-110) mg/dL Urine Color (YELLOW) Urine Appearance (CLEAR) Urine pH (4.7-8.0) Ur Specific Cor[place]na (1.005-1.035) Urine Protein (<30 mg/dL) mg/dL Urine Glucose (UA) (NEGATIVE) mg/dL Urine Ketones (NEGATIVE) mg/dL Urine Blood (NEGATIVE) Urine Nitrate (NEGATIVE) Urine Bilirubin (NEGATIVE) Urine Urobilinogen (<1 E.U./dL) E.U./dL Ur Leukocyte Esterase (NEGATIVE) Caio/uL Urine RBC (0-2) /hpf Urine WBC (0-6) /hpf Ur Epithelial Cells (0-5) /hpf Urine Bacteria (NONE) /hpf Blood Type Antibody Screen Crossmatch BBK History Checked 06/19/18 06/19/18 06/19/18 Range/Units 22:30 16:47 15:02 WBC 8.7 (4.5-11.0) 10^3/uL RBC 3.05 L (3.5-6.1) 10^6/uL Hgb 9.1 L D (14.0-18.0) g/dL Hct 27.3 L (42.0-52.0) % MCV 89.5 (80.0-105.0) fl MCH 29.8 (25.0-35.0) pg MCHC 33.3 (31.0-37.0) g/dl RDW 15.5 H (11.5-14.5) % Plt Count 139 (120.0-450.0) 10^3/uL MPV 9.3 (7.0-11.0) fl PT (9.4-12.5) SECONDS INR POC Glucose (mg/dL) 80 (65-110) mg/dL Urine Color Yellow (YELLOW) Urine Appearance Turbid (CLEAR) Urine pH 6.5 (4.7-8.0) Ur Specific [place] >= 1.030 (1.005-1.035) Urine Protein >=300 H (<30 mg/dL) mg/dL Urine Glucose (UA) 100 H (NEGATIVE) mg/dL Urine Ketones 15 H (NEGATIVE) mg/dL Urine Blood Large H (NEGATIVE) Urine Nitrate Positive H (NEGATIVE) Urine Bilirubin Small H (NEGATIVE) Urine Urobilinogen 0.2 (<1 E.U./dL) E.U./dL Ur Leukocyte Esterase Large H (NEGATIVE) Caio/uL Urine RBC Tntc H (0-2) /hpf Urine WBC Tntc H (0-6) /hpf Ur Epithelial Cells 0 - 2 (0-5) /hpf Urine Bacteria Many (NONE) /hpf Blood Type Antibody Screen Crossmatch BBK History Checked 06/19/18 06/19/18 06/18/18 Range/Units 12:40 10:50 10:30 WBC (4.5-11.0) 10^3/uL RBC (3.5-6.1) 10^6/uL Hgb (14.0-18.0) g/dL Hct (42.0-52.0) % MCV (80.0-105.0) fl MCH (25.0-35.0) pg MCHC (31.0-37.0) g/dl RDW (11.5-14.5) % Plt Count (120.0-450.0) 10^3/uL MPV (7.0-11.0) fl PT 13.4 H (9.4-12.5) SECONDS INR 1.19 POC Glucose (mg/dL) 76 (65-110) mg/dL Urine Color (YELLOW) Urine Appearance (CLEAR) Urine pH (4.7-8.0) Ur Specific [place] (1.005-1.035) Urine Protein (<30 mg/dL) mg/dL Urine Glucose (UA) (NEGATIVE) mg/dL Urine Ketones (NEGATIVE) mg/dL Urine Blood (NEGATIVE) Urine Nitrate (NEGATIVE) Urine Bilirubin (NEGATIVE) Urine Urobilinogen (<1 E.U./dL) E.U./dL Ur Leukocyte Esterase (NEGATIVE) Caio/uL Urine RBC (0-2) /hpf Urine WBC (0-6) /hpf Ur Epithelial Cells (0-5) /hpf Urine Bacteria (NONE) /hpf Blood Type A POSITIVE Antibody Screen Negative Crossmatch See Detail BBK History Checked Patient has bt 06/15/18 Range/Units 11:00 WBC (4.5-11.0) 10^3/uL RBC (3.5-6.1) 10^6/uL Hgb (14.0-18.0) g/dL Hct (42.0-52.0) % MCV (80.0-105.0) fl MCH (25.0-35.0) pg MCHC (31.0-37.0) g/dl RDW (11.5-14.5) % Plt Count (120.0-450.0) 10^3/uL MPV (7.0-11.0) fl PT (9.4-12.5) SECONDS INR POC Glucose (mg/dL) (65-110) mg/dL Urine Color (YELLOW) Urine Appearance (CLEAR) Urine pH (4.7-8.0) Ur Specific [place] (1.005-1.035) Urine Protein (<30 mg/dL) mg/dL Urine Glucose (UA) (NEGATIVE) mg/dL Urine Ketones (NEGATIVE) mg/dL Urine Blood (NEGATIVE) Urine Nitrate (NEGATIVE) Urine Bilirubin (NEGATIVE) Urine Urobilinogen (<1 E.U./dL) E.U./dL Ur Leukocyte Esterase (NEGATIVE) Caio/uL Urine RBC (0-2) /hpf Urine WBC (0-6) /hpf Ur Epithelial Cells (0-5) /hpf Urine Bacteria (NONE) /hpf Blood Type Antibody Screen Crossmatch See Detail BBK History Checked Laboratory Results - last 24 hr 06/15/18 06/18/18 06/19/18 11:00 10:30 10:50 WBC RBC Hgb Hct MCV MCH MCHC RDW Plt Count MPV PT INR POC Glucose (mg/dL) 76 Urine Color Urine Appearance Urine pH Ur Specific [place] Urine Protein Urine Glucose (UA) Urine Ketones Urine Blood Urine Nitrate Urine Bilirubin Urine Urobilinogen Ur Leukocyte Esterase Urine RBC Urine WBC Ur Epithelial Cells Urine Bacteria Blood Type A POSITIVE Antibody Screen Negative Crossmatch See Detail See Detail BBK History Checked Patient has bt 06/19/18 06/19/18 06/19/18 12:40 15:02 16:47 WBC RBC Hgb Hct MCV MCH MCHC RDW Plt Count MPV PT 13.4 H INR 1.19 POC Glucose (mg/dL) 80 Urine Color Yellow Urine Appearance Turbid Urine pH 6.5 Ur Specific [place] >= 1.030 Urine Protein >=300 H Urine Glucose (UA) 100 H Urine Ketones 15 H Urine Blood Large H Urine Nitrate Positive H Urine Bilirubin Small H Urine Urobilinogen 0.2 Ur Leukocyte Esterase Large H Urine RBC Tntc H Urine WBC Tntc H Ur Epithelial Cells 0 - 2 Urine Bacteria Many Blood Type Antibody Screen Crossmatch BBK History Checked 06/19/18 06/19/18 06/20/18 22:30 22:31 00:06 WBC 8.7 RBC 3.05 L Hgb 9.1 L D Hct 27.3 L MCV 89.5 MCH 29.8 MCHC 33.3 RDW 15.5 H Plt Count 139 MPV 9.3 PT INR POC Glucose (mg/dL) 65 65 Urine Color Urine Appearance Urine pH Ur Specific [place] Urine Protein Urine Glucose (UA) Urine Ketones Urine Blood Urine Nitrate Urine Bilirubin Urine Urobilinogen Ur Leukocyte Esterase Urine RBC Urine WBC Ur Epithelial Cells Urine Bacteria Blood Type Antibody Screen Crossmatch BBK History Checked 06/20/18 05:05 WBC RBC Hgb Hct MCV MCH MCHC RDW Plt Count MPV PT INR POC Glucose (mg/dL) 68 Urine Color Urine Appearance Urine pH Ur Specific [place] Urine Protein Urine Glucose (UA) Urine Ketones Urine Blood Urine Nitrate Urine Bilirubin Urine Urobilinogen Ur Leukocyte Esterase Urine RBC Urine WBC Ur Epithelial Cells Urine Bacteria Blood Type Antibody Screen Crossmatch BBK History Checked Radiology Impressions: Radiology Impressions GI Bleed Scan Nuclear Medicine 06/18/18 15:52 IMPRESSION: No evidence of active gastrointestinal bleeding. Fingerstick Blood Sugar Results: 80 Assessment/Plan - Assessment and Plan (Free Text) Assessment: Pt is a 67 yo male with a PMH of dilated cardiomyopathy, ESRD on HD, DM, HTN, arthritis, and anemia who presented to the ED complaining of dizziness and 1 episode of BRBPR prior to arrival. Plan: Neuro - AOx3 - continue to monitor mental status Cardio - dilated cardiomyopathy EF 20% with defibrillator - HTN - RRR, normotensive - trop negative x1 - amiodarone, lipitor, midodrine - Cardvirgil consulted, Dr Shukri Walker - maintain O2>92% GI - GI bleed, history of AVM - Hgb 5.9 on arrival - Hgb today is 9.1, stable - pt has received 12 units pRBC, and 5 FFP - INR 1.21 - pantoprazole 40mg IVP daily - GI bleeding scan negative for signs of GI bleed - NPO - Colonoscopy 06/17/18, after dialysis and nulytely, no bleeding site could be identified - pt will recieve a Meckle's scan today - GI consulted, Dr Wynn - Surgery consulted, Dr Winter Renal/ - ESRD on HD, MWF - continue to monitor electrolytes - BUN 29, Cr 6.4 - flomax, renagel - Nephro consulted, Dr Young ID - no leukocytosis Heme - Anemia of chronic disease - pt reports daily ASA use, hold at this time - ferrous sulfate Endocrine - DM - accuchecks Spoke with Jammie [phone] 06/18/18. Discussed 's transfusions, colonoscopy and the status of her . Pt seen, examined, assessment and plan discussed with Dr Levar Zavala PGY1 - Date & Time Date: 06/20/18 Time: 09:09 <Levar Gayle - Last Filed: 06/20/18 12:37> CCU Objective - Vital Signs / Intake & Output Vital Signs (Last 4 hours): Vital Signs Pulse BP 06/20/18 10:30 67 133/61 Intake and Output (Last 8hrs): Intake & Output 06/19/18 06/20/18 06/20/18 22:59 06:59 14:59 Intake Total 1020 425 Output Total 195 0 Balance 825 425 Weight 98.883 kg Intake: IV 100 Right Forearm 100 Oral 360 0 Blood Product 650 325 Red Blood Cells Cpd As1 325 Lr Unit [id number] Red Blood Cells Cpd As1 325 Lr Unit [id number] Other 10 Red Blood Cells Cpd As1 10 Lr Unit [id number] Output: Urine 195 0 Straight 145 0 Urine, Voided 50 0 Emesis 0 Other: # Bowel Movements 0 1 - Medications Active Medications: Active Medications Generic Name Dose Route Start Last Admin Trade Name Freq PRN Reason Stop Dose Admin Acetaminophen 650 mg 06/18/18 20:52 06/18/18 21:10 Tylenol 325mg Tab PO 650 mg Q6H PRN Administration Pain, moderate (4-7) Amiodarone HCl 200 mg 06/16/18 10:00 06/20/18 10:30 Cordarone PO 200 mg DAILY JAVIER Administration Atorvastatin Calcium 40 mg 06/15/18 17:00 06/19/18 17:48 Lipitor PO 40 mg DIN JAVIER Administration Meropenem 250 mg/ Sodium 100 mls @ 100 mls/hr 06/19/18 22:00 06/20/18 12:20 Chloride IVPB 06/26/18 22:01 100 mls/hr Q12H JAVIER Administration Protocol Midodrine 5 mg 06/16/18 12:00 06/20/18 12:26 Proamatine PO 5 mg 0800,1200,1600 JAVIER Administration Pantoprazole Sodium 40 mg 06/16/18 10:00 06/20/18 12:23 Protonix Inj IVP 40 mg DAILY JAVIER Administration Sevelamer HCl 800 mg 06/16/18 09:43 06/20/18 12:23 Renagel PO 800 mg BID JAVIER Administration Tamsulosin HCl 0.4 mg 06/16/18 10:00 06/20/18 10:00 Flomax PO 0.4 mg DAILY JAVIER Administration Vitamin B Complex/Vit C/Folic Acid 1 tab 06/16/18 10:00 06/20/18 10:00 Nephro-Tyson PO 1 tab DAILY JAVIER Administration - Patient Studies Lab Studies: Lab Studies 06/20/18 06/20/18 06/20/18 Range/Units 11:40 10:58 08:15 WBC (4.5-11.0) 10^3/uL RBC (3.5-6.1) 10^6/uL Hgb (14.0-18.0) g/dL Hct (42.0-52.0) % MCV (80.0-105.0) fl MCH (25.0-35.0) pg MCHC (31.0-37.0) g/dl RDW (11.5-14.5) % Plt Count (120.0-450.0) 10^3/uL MPV (7.0-11.0) fl Neut % (Auto) (50.0-68.0) % Lymph % (Auto) (22.0-35.0) % Benson % (Auto) (1.0-6.0) % Eos % (Auto) (1.5-5.0) % Baso % (Auto) (0.0-3.0) % Lymph # (Auto) (1.2-3.4) Benson # (Auto) (0.1-0.6) Eos # (Auto) (0.0-0.7) Baso # (Auto) (0.0-2.0) K/mm3 Absolute Neuts (auto) (1.4-6.5) Neutrophils % (Manual) (50.0-70.0) % Lymphocytes % (Manual) (22.0-35.0) % Monocytes % (Manual) (1.0-6.0) % Eosinophils % (Manual) (0.0-3.0) % Platelet Evaluation (NORMAL) PT 13.7 H (9.4-12.5) SECONDS INR 1.21 Sodium (132-148) mmol/L Potassium (3.6-5.0) mmol/L Chloride (98-107) mmol/L Carbon Dioxide (21-33) mmol/L Anion Gap (10-20) BUN (7-21) mg/dL Creatinine (0.8-1.5) mg/dl Est GFR ( Amer) Est GFR (Non-Af Amer) POC Glucose (mg/dL) 64 L (65-110) mg/dL Random Glucose (70-110) mg/dL Calcium (8.4-10.5) mg/dL Phosphorus (2.5-4.5) mg/dL Magnesium (1.7-2.2) mg/dL Iron 13 L (45-180) ug/dL TIBC 175 L (261-462) ug/dL % Saturation 7 L (20-55) % Total Bilirubin (0.2-1.3) mg/dL AST (17-59) U/L ALT (7-56) U/L Alkaline Phosphatase (38-126) U/L Total Protein (5.8-8.3) g/dL Albumin (3.0-4.8) g/dL Globulin gm/dL Albumin/Globulin Ratio (1.1-1.8) Urine Color (YELLOW) Urine Appearance (CLEAR) Urine pH (4.7-8.0) Ur Specific [place] (1.005-1.035) Urine Protein (<30 mg/dL) mg/dL Urine Glucose (UA) (NEGATIVE) mg/dL Urine Ketones (NEGATIVE) mg/dL Urine Blood (NEGATIVE) Urine Nitrate (NEGATIVE) Urine Bilirubin (NEGATIVE) Urine Urobilinogen (<1 E.U./dL) E.U./dL Ur Leukocyte Esterase (NEGATIVE) Caio/uL Urine RBC (0-2) /hpf Urine WBC (0-6) /hpf Ur Epithelial Cells (0-5) /hpf Urine Bacteria (NONE) /hpf Blood Type Antibody Screen Crossmatch BBK History Checked 06/20/18 06/20/18 06/20/18 Range/Units 08:15 08:15 07:13 WBC 10.7 D (4.5-11.0) 10^3/uL RBC 3.02 L (3.5-6.1) 10^6/uL Hgb 9.1 L (14.0-18.0) g/dL Hct 27.3 L (42.0-52.0) % MCV 90.4 (80.0-105.0) fl MCH 30.1 (25.0-35.0) pg MCHC 33.3 (31.0-37.0) g/dl RDW 15.9 H (11.5-14.5) % Plt Count 139 (120.0-450.0) 10^3/uL MPV 8.9 (7.0-11.0) fl Neut % (Auto) 84.8 H (50.0-68.0) % Lymph % (Auto) 4.1 L (22.0-35.0) % Benson % (Auto) 8.8 H (1.0-6.0) % Eos % (Auto) 2.1 (1.5-5.0) % Baso % (Auto) 0.2 (0.0-3.0) % Lymph # (Auto) 0.4 L (1.2-3.4) Benson # (Auto) 0.9 H (0.1-0.6) Eos # (Auto) 0.2 (0.0-0.7) Baso # (Auto) 0.02 (0.0-2.0) K/mm3 Absolute Neuts (auto) 9.07 H (1.4-6.5) Neutrophils % (Manual) 93 H (50.0-70.0) % Lymphocytes % (Manual) 5 L (22.0-35.0) % Monocytes % (Manual) 1 (1.0-6.0) % Eosinophils % (Manual) 1 (0.0-3.0) % Platelet Evaluation Normal (NORMAL) PT (9.4-12.5) SECONDS INR Sodium 134 (132-148) mmol/L Potassium 4.1 (3.6-5.0) mmol/L Chloride 101 (98-107) mmol/L Carbon Dioxide 23 (21-33) mmol/L Anion Gap 15 (10-20) BUN 29 H (7-21) mg/dL Creatinine 6.4 H (0.8-1.5) mg/dl Est GFR ( Amer) 11 Est GFR (Non-Af Amer) 9 POC Glucose (mg/dL) 59 L (65-110) mg/dL Random Glucose 55 L (70-110) mg/dL Calcium 8.0 L (8.4-10.5) mg/dL Phosphorus 5.8 H (2.5-4.5) mg/dL Magnesium 1.9 (1.7-2.2) mg/dL Iron (45-180) ug/dL TIBC (261-462) ug/dL % Saturation (20-55) % Total Bilirubin 1.0 (0.2-1.3) mg/dL AST 31 (17-59) U/L ALT 26 (7-56) U/L Alkaline Phosphatase 92 (38-126) U/L Total Protein 6.0 (5.8-8.3) g/dL Albumin 2.7 L (3.0-4.8) g/dL Globulin 3.3 gm/dL Albumin/Globulin Ratio 0.8 L (1.1-1.8) Urine Color (YELLOW) Urine Appearance (CLEAR) Urine pH (4.7-8.0) Ur Specific [place] (1.005-1.035) Urine Protein (<30 mg/dL) mg/dL Urine Glucose (UA) (NEGATIVE) mg/dL Urine Ketones (NEGATIVE) mg/dL Urine Blood (NEGATIVE) Urine Nitrate (NEGATIVE) Urine Bilirubin (NEGATIVE) Urine Urobilinogen (<1 E.U./dL) E.U./dL Ur Leukocyte Esterase (NEGATIVE) Caio/uL Urine RBC (0-2) /hpf Urine WBC (0-6) /hpf Ur Epithelial Cells (0-5) /hpf Urine Bacteria (NONE) /hpf Blood Type Antibody Screen Crossmatch BBK History Checked 06/20/18 06/20/18 06/19/18 Range/Units 05:05 00:06 22:31 WBC (4.5-11.0) 10^3/uL RBC (3.5-6.1) 10^6/uL Hgb (14.0-18.0) g/dL Hct (42.0-52.0) % MCV (80.0-105.0) fl MCH (25.0-35.0) pg MCHC (31.0-37.0) g/dl RDW (11.5-14.5) % Plt Count (120.0-450.0) 10^3/uL MPV (7.0-11.0) fl Neut % (Auto) (50.0-68.0) % Lymph % (Auto) (22.0-35.0) % Benson % (Auto) (1.0-6.0) % Eos % (Auto) (1.5-5.0) % Baso % (Auto) (0.0-3.0) % Lymph # (Auto) (1.2-3.4) Benson # (Auto) (0.1-0.6) Eos # (Auto) (0.0-0.7) Baso # (Auto) (0.0-2.0) K/mm3 Absolute Neuts (auto) (1.4-6.5) Neutrophils % (Manual) (50.0-70.0) % Lymphocytes % (Manual) (22.0-35.0) % Monocytes % (Manual) (1.0-6.0) % Eosinophils % (Manual) (0.0-3.0) % Platelet Evaluation (NORMAL) PT (9.4-12.5) SECONDS INR Sodium (132-148) mmol/L Potassium (3.6-5.0) mmol/L Chloride (98-107) mmol/L Carbon Dioxide (21-33) mmol/L Anion Gap (10-20) BUN (7-21) mg/dL Creatinine (0.8-1.5) mg/dl Est GFR ( Amer) Est GFR (Non-Af Amer) POC Glucose (mg/dL) 68 65 65 (65-110) mg/dL Random Glucose (70-110) mg/dL Calcium (8.4-10.5) mg/dL Phosphorus (2.5-4.5) mg/dL Magnesium (1.7-2.2) mg/dL Iron (45-180) ug/dL TIBC (261-462) ug/dL % Saturation (20-55) % Total Bilirubin (0.2-1.3) mg/dL AST (17-59) U/L ALT (7-56) U/L Alkaline Phosphatase (38-126) U/L Total Protein (5.8-8.3) g/dL Albumin (3.0-4.8) g/dL Globulin gm/dL Albumin/Globulin Ratio (1.1-1.8) Urine Color (YELLOW) Urine Appearance (CLEAR) Urine pH (4.7-8.0) Ur Specific [place] (1.005-1.035) Urine Protein (<30 mg/dL) mg/dL Urine Glucose (UA) (NEGATIVE) mg/dL Urine Ketones (NEGATIVE) mg/dL Urine Blood (NEGATIVE) Urine Nitrate (NEGATIVE) Urine Bilirubin (NEGATIVE) Urine Urobilinogen (<1 E.U./dL) E.U./dL Ur Leukocyte Esterase (NEGATIVE) Caio/uL Urine RBC (0-2) /hpf Urine WBC (0-6) /hpf Ur Epithelial Cells (0-5) /hpf Urine Bacteria (NONE) /hpf Blood Type Antibody Screen Crossmatch BBK History Checked 06/19/18 06/19/18 06/19/18 Range/Units 22:30 16:47 15:02 WBC 8.7 (4.5-11.0) 10^3/uL RBC 3.05 L (3.5-6.1) 10^6/uL Hgb 9.1 L D (14.0-18.0) g/dL Hct 27.3 L (42.0-52.0) % MCV 89.5 (80.0-105.0) fl MCH 29.8 (25.0-35.0) pg MCHC 33.3 (31.0-37.0) g/dl RDW 15.5 H (11.5-14.5) % Plt Count 139 (120.0-450.0) 10^3/uL MPV 9.3 (7.0-11.0) fl Neut % (Auto) (50.0-68.0) % Lymph % (Auto) (22.0-35.0) % Benson % (Auto) (1.0-6.0) % Eos % (Auto) (1.5-5.0) % Baso % (Auto) (0.0-3.0) % Lymph # (Auto) (1.2-3.4) Benson # (Auto) (0.1-0.6) Eos # (Auto) (0.0-0.7) Baso # (Auto) (0.0-2.0) K/mm3 Absolute Neuts (auto) (1.4-6.5) Neutrophils % (Manual) (50.0-70.0) % Lymphocytes % (Manual) (22.0-35.0) % Monocytes % (Manual) (1.0-6.0) % Eosinophils % (Manual) (0.0-3.0) % Platelet Evaluation (NORMAL) PT (9.4-12.5) SECONDS INR Sodium (132-148) mmol/L Potassium (3.6-5.0) mmol/L Chloride (98-107) mmol/L Carbon Dioxide (21-33) mmol/L Anion Gap (10-20) BUN (7-21) mg/dL Creatinine (0.8-1.5) mg/dl Est GFR ( Amer) Est GFR (Non-Af Amer) POC Glucose (mg/dL) 80 (65-110) mg/dL Random Glucose (70-110) mg/dL Calcium (8.4-10.5) mg/dL Phosphorus (2.5-4.5) mg/dL Magnesium (1.7-2.2) mg/dL Iron (45-180) ug/dL TIBC (261-462) ug/dL % Saturation (20-55) % Total Bilirubin (0.2-1.3) mg/dL AST (17-59) U/L ALT (7-56) U/L Alkaline Phosphatase (38-126) U/L Total Protein (5.8-8.3) g/dL Albumin (3.0-4.8) g/dL Globulin gm/dL Albumin/Globulin Ratio (1.1-1.8) Urine Color Yellow (YELLOW) Urine Appearance Turbid (CLEAR) Urine pH 6.5 (4.7-8.0) Ur Specific Corinna >= 1.030 (1.005-1.035) Urine Protein >=300 H (<30 mg/dL) mg/dL Urine Glucose (UA) 100 H (NEGATIVE) mg/dL Urine Ketones 15 H (NEGATIVE) mg/dL Urine Blood Large H (NEGATIVE) Urine Nitrate Positive H (NEGATIVE) Urine Bilirubin Small H (NEGATIVE) Urine Urobilinogen 0.2 (<1 E.U./dL) E.U./dL Ur Leukocyte Esterase Large H (NEGATIVE) Caio/uL Urine RBC Tntc H (0-2) /hpf Urine WBC Tntc H (0-6) /hpf Ur Epithelial Cells 0 - 2 (0-5) /hpf Urine Bacteria Many (NONE) /hpf Blood Type Antibody Screen Crossmatch BBK History Checked 06/19/18 06/18/18 06/15/18 Range/Units 12:40 10:30 11:00 WBC (4.5-11.0) 10^3/uL RBC (3.5-6.1) 10^6/uL Hgb (14.0-18.0) g/dL Hct (42.0-52.0) % MCV (80.0-105.0) fl MCH (25.0-35.0) pg MCHC (31.0-37.0) g/dl RDW (11.5-14.5) % Plt Count (120.0-450.0) 10^3/uL MPV (7.0-11.0) fl Neut % (Auto) (50.0-68.0) % Lymph % (Auto) (22.0-35.0) % Benson % (Auto) (1.0-6.0) % Eos % (Auto) (1.5-5.0) % Baso % (Auto) (0.0-3.0) % Lymph # (Auto) (1.2-3.4) Benson # (Auto) (0.1-0.6) Eos # (Auto) (0.0-0.7) Baso # (Auto) (0.0-2.0) K/mm3 Absolute Neuts (auto) (1.4-6.5) Neutrophils % (Manual) (50.0-70.0) % Lymphocytes % (Manual) (22.0-35.0) % Monocytes % (Manual) (1.0-6.0) % Eosinophils % (Manual) (0.0-3.0) % Platelet Evaluation (NORMAL) PT 13.4 H (9.4-12.5) SECONDS INR 1.19 Sodium (132-148) mmol/L Potassium (3.6-5.0) mmol/L Chloride (98-107) mmol/L Carbon Dioxide (21-33) mmol/L Anion Gap (10-20) BUN (7-21) mg/dL Creatinine (0.8-1.5) mg/dl Est GFR ( Amer) Est GFR (Non-Af Amer) POC Glucose (mg/dL) (65-110) mg/dL Random Glucose (70-110) mg/dL Calcium (8.4-10.5) mg/dL Phosphorus (2.5-4.5) mg/dL Magnesium (1.7-2.2) mg/dL Iron (45-180) ug/dL TIBC (261-462) ug/dL % Saturation (20-55) % Total Bilirubin (0.2-1.3) mg/dL AST (17-59) U/L ALT (7-56) U/L Alkaline Phosphatase (38-126) U/L Total Protein (5.8-8.3) g/dL Albumin (3.0-4.8) g/dL Globulin gm/dL Albumin/Globulin Ratio (1.1-1.8) Urine Color (YELLOW) Urine Appearance (CLEAR) Urine pH (4.7-8.0) Ur Specific [place] (1.005-1.035) Urine Protein (<30 mg/dL) mg/dL Urine Glucose (UA) (NEGATIVE) mg/dL Urine Ketones (NEGATIVE) mg/dL Urine Blood (NEGATIVE) Urine Nitrate (NEGATIVE) Urine Bilirubin (NEGATIVE) Urine Urobilinogen (<1 E.U./dL) E.U./dL Ur Leukocyte Esterase (NEGATIVE) Caio/uL Urine RBC (0-2) /hpf Urine WBC (0-6) /hpf Ur Epithelial Cells (0-5) /hpf Urine Bacteria (NONE) /hpf Blood Type A POSITIVE Antibody Screen Negative Crossmatch See Detail See Detail BBK History Checked Patient has bt Laboratory Results - last 24 hr 06/15/18 06/18/18 06/19/18 11:00 10:30 12:40 WBC RBC Hgb Hct MCV MCH MCHC RDW Plt Count MPV Neut % (Auto) Lymph % (Auto) Benson % (Auto) Eos % (Auto) Baso % (Auto) Lymph # (Auto) Benson # (Auto) Eos # (Auto) Baso # (Auto) Absolute Neuts (auto) Neutrophils % (Manual) Lymphocytes % (Manual) Monocytes % (Manual) Eosinophils % (Manual) Platelet Evaluation PT 13.4 H INR 1.19 Sodium Potassium Chloride Carbon Dioxide Anion Gap BUN Creatinine Est GFR ( Amer) Est GFR (Non-Af Amer) POC Glucose (mg/dL) Random Glucose Calcium Phosphorus Magnesium Iron TIBC % Saturation Total Bilirubin AST ALT Alkaline Phosphatase Total Protein Albumin Globulin Albumin/Globulin Ratio Urine Color Urine Appearance Urine pH Ur Specific [place] Urine Protein Urine Glucose (UA) Urine Ketones Urine Blood Urine Nitrate Urine Bilirubin Urine Urobilinogen Ur Leukocyte Esterase Urine RBC Urine WBC Ur Epithelial Cells Urine Bacteria Blood Type A POSITIVE Antibody Screen Negative Crossmatch See Detail See Detail BBK History Checked Patient has bt 06/19/18 06/19/18 06/19/18 15:02 16:47 22:30 WBC 8.7 RBC 3.05 L Hgb 9.1 L D Hct 27.3 L MCV 89.5 MCH 29.8 MCHC 33.3 RDW 15.5 H Plt Count 139 MPV 9.3 Neut % (Auto) Lymph % (Auto) Benson % (Auto) Eos % (Auto) Baso % (Auto) Lymph # (Auto) Benson # (Auto) Eos # (Auto) Baso # (Auto) Absolute Neuts (auto) Neutrophils % (Manual) Lymphocytes % (Manual) Monocytes % (Manual) Eosinophils % (Manual) Platelet Evaluation PT INR Sodium Potassium Chloride Carbon Dioxide Anion Gap BUN Creatinine Est GFR ( Amer) Est GFR (Non-Af Amer) POC Glucose (mg/dL) 80 Random Glucose Calcium Phosphorus Magnesium Iron TIBC % Saturation Total Bilirubin AST ALT Alkaline Phosphatase Total Protein Albumin Globulin Albumin/Globulin Ratio Urine Color Yellow Urine Appearance Turbid Urine pH 6.5 Ur Specific Corinna >= 1.030 Urine Protein >=300 H Urine Glucose (UA) 100 H Urine Ketones 15 H Urine Blood Large H Urine Nitrate Positive H Urine Bilirubin Small H Urine Urobilinogen 0.2 Ur Leukocyte Esterase Large H Urine RBC Tntc H Urine WBC Tntc H Ur Epithelial Cells 0 - 2 Urine Bacteria Many Blood Type Antibody Screen Crossmatch BBK History Checked 06/19/18 06/20/18 06/20/18 22:31 00:06 05:05 WBC RBC Hgb Hct MCV MCH MCHC RDW Plt Count MPV Neut % (Auto) Lymph % (Auto) Benson % (Auto) Eos % (Auto) Baso % (Auto) Lymph # (Auto) Benson # (Auto) Eos # (Auto) Baso # (Auto) Absolute Neuts (auto) Neutrophils % (Manual) Lymphocytes % (Manual) Monocytes % (Manual) Eosinophils % (Manual) Platelet Evaluation PT INR Sodium Potassium Chloride Carbon Dioxide Anion Gap BUN Creatinine Est GFR ( Amer) Est GFR (Non-Af Amer) POC Glucose (mg/dL) 65 65 68 Random Glucose Calcium Phosphorus Magnesium Iron TIBC % Saturation Total Bilirubin AST ALT Alkaline Phosphatase Total Protein Albumin Globulin Albumin/Globulin Ratio Urine Color Urine Appearance Urine pH Ur Specific Corinna Urine Protein Urine Glucose (UA) Urine Ketones Urine Blood Urine Nitrate Urine Bilirubin Urine Urobilinogen Ur Leukocyte Esterase Urine RBC Urine WBC Ur Epithelial Cells Urine Bacteria Blood Type Antibody Screen Crossmatch BBK History Checked 06/20/18 06/20/18 06/20/18 07:13 08:15 08:15 WBC 10.7 D RBC 3.02 L Hgb 9.1 L Hct 27.3 L MCV 90.4 MCH 30.1 MCHC 33.3 RDW 15.9 H Plt Count 139 MPV 8.9 Neut % (Auto) 84.8 H Lymph % (Auto) 4.1 L Benson % (Auto) 8.8 H Eos % (Auto) 2.1 Baso % (Auto) 0.2 Lymph # (Auto) 0.4 L Benson # (Auto) 0.9 H Eos # (Auto) 0.2 Baso # (Auto) 0.02 Absolute Neuts (auto) 9.07 H Neutrophils % (Manual) 93 H Lymphocytes % (Manual) 5 L Monocytes % (Manual) 1 Eosinophils % (Manual) 1 Platelet Evaluation Normal PT INR Sodium 134 Potassium 4.1 Chloride 101 Carbon Dioxide 23 Anion Gap 15 BUN 29 H Creatinine 6.4 H Est GFR ( Amer) 11 Est GFR (Non-Af Amer) 9 POC Glucose (mg/dL) 59 L Random Glucose 55 L Calcium 8.0 L Phosphorus 5.8 H Magnesium 1.9 Iron TIBC % Saturation Total Bilirubin 1.0 AST 31 ALT 26 Alkaline Phosphatase 92 Total Protein 6.0 Albumin 2.7 L Globulin 3.3 Albumin/Globulin Ratio 0.8 L Urine Color Urine Appearance Urine pH Ur Specific Corinna Urine Protein Urine Glucose (UA) Urine Ketones Urine Blood Urine Nitrate Urine Bilirubin Urine Urobilinogen Ur Leukocyte Esterase Urine RBC Urine WBC Ur Epithelial Cells Urine Bacteria Blood Type Antibody Screen Crossmatch BBK History Checked 06/20/18 06/20/18 06/20/18 08:15 10:58 11:40 WBC RBC Hgb Hct MCV MCH MCHC RDW Plt Count MPV Neut % (Auto) Lymph % (Auto) Benson % (Auto) Eos % (Auto) Baso % (Auto) Lymph # (Auto) Benson # (Auto) Eos # (Auto) Baso # (Auto) Absolute Neuts (auto) Neutrophils % (Manual) Lymphocytes % (Manual) Monocytes % (Manual) Eosinophils % (Manual) Platelet Evaluation PT 13.7 H INR 1.21 Sodium Potassium Chloride Carbon Dioxide Anion Gap BUN Creatinine Est GFR ( Amer) Est GFR (Non-Af Amer) POC Glucose (mg/dL) 64 L Random Glucose Calcium Phosphorus Magnesium Iron 13 L TIBC 175 L % Saturation 7 L Total Bilirubin AST ALT Alkaline Phosphatase Total Protein Albumin Globulin Albumin/Globulin Ratio Urine Color Urine Appearance Urine pH Ur Specific Corinna Urine Protein Urine Glucose (UA) Urine Ketones Urine Blood Urine Nitrate Urine Bilirubin Urine Urobilinogen Ur Leukocyte Esterase Urine RBC Urine WBC Ur Epithelial Cells Urine Bacteria Blood Type Antibody Screen Crossmatch BBK History Checked Radiology Impressions: Radiology Impressions Chest X-Ray 06/19/18 19:52 IMPRESSION: No active disease. Addendum Addendum: 06/20/18 12:34 MICU Attending Addendum Patient seen and examined with housestaff Agree with resident note above with the following addition/exceptions: 67m PMH of dilated cardiomyopathy, ESRD on HD, DM, HTN, arthritis, and anemia admitted 06/15 with massive GI bleed s/p ~10 units of PRBC and 4 FFP s/p colonoscopy x2, bleeding scan x 2, no definite identifying source ESRD on HD MWF CHF HB stable for 24 hours no episodes of gi bleeding overnight HB goal > 7 Plan: CBC q 12h, transfuse if HB < 7 plan for meckel scan today, f/u GI/Surg rec for procedure planned HD today cont mortensen given urinary rentention/pus, f/u UA urine culture rest of care as mentioned in above resident note Levar Gayle MD MICU Attending
--- NOTE | 2018-06-20 08:17 | CP.PCM.PN ---
<Dl Santos - Last Filed: 06/20/18 18:12> Subjective - Date & Time of Evaluation Date of Evaluation: 06/20/18 Time of Evaluation: 08:17 - Subjective Subjective: Dl Santos PGY2 GI Progress Note for Dr. Wynn Patient was seen and examined at bedside in ICU. Overnight, the patient is still having small amounts of hematochezia, that are improving. Surgery has ordered Meckel's scan and is pending. BP has improved off pressors now, and is tolerating diet. Objective - Vital Signs/Intake and Output Vital Signs (last 24 hours): Temp Pulse Resp BP Pulse Ox 98.6 F 75 13 129/65 99 06/20/18 04:00 06/20/18 06:00 06/19/18 20:28 06/19/18 20:28 06/19/18 18:00 Intake and Output: 06/20/18 06/20/18 06:59 18:59 Intake Total 750 Output Total 0 Balance 750 - Medications Medications: Current Medications Acetaminophen (Tylenol 325mg Tab) 650 mg PO Q6H PRN PRN Reason: Pain, moderate (4-7) Last Admin: 06/18/18 21:10 Dose: 650 mg Amiodarone HCl (Cordarone) 200 mg PO DAILY [facility] Last Admin: 06/19/18 09:50 Dose: 200 mg Atorvastatin Calcium (Lipitor) 40 mg PO DIN [facility] Last Admin: 06/19/18 17:48 Dose: 40 mg Ferrous Sulfate (Feosol) 324 mg PO TID [facility] Last Admin: 06/19/18 17:48 Dose: 324 mg Meropenem 250 mg/ Sodium (Chloride) 100 mls @ 100 mls/hr IVPB Q12H [facility]; Protocol Stop: 06/26/18 22:01 Last Admin: 06/19/18 22:10 Dose: 100 mls/hr Midodrine (Proamatine) 5 mg PO 0800,1200,1600 [facility] Last Admin: 06/20/18 07:56 Dose: 5 mg Pantoprazole Sodium (Protonix Inj) 40 mg IVP DAILY [facility] Last Admin: 06/19/18 09:50 Dose: 40 mg Sevelamer HCl (Renagel) 800 mg PO BID [facility] Last Admin: 06/19/18 17:49 Dose: Not Given Tamsulosin HCl (Flomax) 0.4 mg PO DAILY [facility] Last Admin: 06/19/18 09:49 Dose: 0.4 mg Vitamin B Complex/Vit C/Folic Acid (Nephro-Tyson) 1 tab PO DAILY [facility] Last Admin: 06/19/18 09:49 Dose: 1 tab - Labs Labs: 06/19/18 22:30 06/18/18 08:30 PT 13.4 SECONDS (9.4-12.5) H 06/19/18 12:40 INR 1.19 06/19/18 12:40 APTT 35.4 Seconds (26.9-38.3) 06/15/18 11:00 - Constitutional Appears: Non-toxic, No Acute Distress - Head Exam Head Exam: ATRAUMATIC, NORMAL INSPECTION - Eye Exam Eye Exam: EOMI, Normal appearance - ENT Exam ENT Exam: Mucous Membranes Moist, Normal Exam - Neck Exam Neck Exam: Full ROM - Respiratory Exam Respiratory Exam: NORMAL BREATHING PATTERN - Cardiovascular Exam Cardiovascular Exam: RRR, +S1, +S2, Murmur Additional comments: AICD - GI/Abdominal Exam GI & Abdominal Exam: Soft, Normal Bowel Sounds. absent: Distended, Tenderness - Extremities Exam Extremities Exam: Full ROM. absent: Pedal Edema Additional comments: LUE AVF +bruit +thrill - Back Exam Back Exam: Full ROM, NORMAL INSPECTION - Neurological Exam Neurological Exam: Alert, Awake - Skin Skin Exam: Normal Color, Warm Assessment and Plan - Assessment and Plan (Free Text) Assessment: 67 year old male with a PMH of dilated cardiomyopathy (EF 22%) s/p defibrillator, ESRD on HD MWF, DM2, Arthritis, HTN and Anemia of chronic disease/iron deficiency who is admitted with symptomatic anemia and bloody stool movement. GI is consulted for anemia, and bright red blood per rectum. s/p EGD and 2 colonoscopies which did not reveal site of active bleeding. H/H and BP stable now. Surgery following. Meckel's scan pending. Plan: - f/u Meckel's scan - monitor VS - monitor H/H - patient would benefit from capsule endoscopy to evaluate small intestine bleeding; will discuss with PMD and surgery regarding possibility of inpatient procedure - discussed plan w/ ICU and surgery teams - further recs per Dr. Wynn Case was reviewed and discussed with Dr. Wynn <Foreign Wynn V - Last Filed: 06/20/18 22:27> Objective - Vital Signs/Intake and Output Vital Signs (last 24 hours): Temp Pulse Resp BP Pulse Ox 97.9 F 78 17 109/59 L 100 06/20/18 16:00 06/20/18 19:00 06/20/18 19:00 06/20/18 19:00 06/20/18 19:00 Intake and Output: 06/20/18 06/21/18 18:59 06:59 Intake Total 100 Output Total 1500 Balance -1400 - Medications Medications: Current Medications Acetaminophen (Tylenol 325mg Tab) 650 mg PO Q6H PRN PRN Reason: Pain, moderate (4-7) Last Admin: 06/18/18 21:10 Dose: 650 mg Amiodarone HCl (Cordarone) 200 mg PO DAILY [facility] Last Admin: 06/20/18 10:30 Dose: 200 mg Atorvastatin Calcium (Lipitor) 40 mg PO DIN [facility] Last Admin: 06/20/18 18:00 Dose: 40 mg Meropenem 250 mg/ Sodium (Chloride) 100 mls @ 100 mls/hr IVPB Q12H [facility]; Protocol Stop: 06/26/18 22:01 Last Admin: 06/20/18 21:19 Dose: 100 mls/hr Midodrine (Proamatine) 5 mg PO 0800,1200,1600 [facility] Last Admin: 06/20/18 17:25 Dose: 5 mg Pantoprazole Sodium (Protonix Inj) 40 mg IVP DAILY [facility] Last Admin: 06/20/18 12:23 Dose: 40 mg Sevelamer HCl (Renagel) 800 mg PO BID [facility] Last Admin: 06/20/18 18:30 Dose: 800 mg Tamsulosin HCl (Flomax) 0.4 mg PO DAILY [facility] Last Admin: 06/20/18 10:00 Dose: 0.4 mg Vitamin B Complex/Vit C/Folic Acid (Nephro-Tyson) 1 tab PO DAILY [facility] Last Admin: 06/20/18 10:00 Dose: 1 tab - Labs Labs: 06/20/18 08:15 06/20/18 08:15 PT 13.7 SECONDS (9.4-12.5) H 06/20/18 08:15 INR 1.21 06/20/18 08:15 APTT 35.4 Seconds (26.9-38.3) 06/15/18 11:00 Attending/Attestation - Attestation I have personally seen and examined this patient.: Yes I have fully participated in the care of the patient.: Yes I have reviewed all pertinent clinical information, including history, physical exam and plan: Yes Notes (Text): This is an addendum to the GI progress report dictated by the resident. Patient was seen and evaluated earlier along with the resident. Reviewed with the ICU staff. Discussed with the surgical team and also with PCP. Status post massive GI bleeding. Appears to be now stabilized with no further episodes. Endoscopic findings most suggestive of small bowel bleed. Less likely other differential should include colonic AVM and diverticulosis. Since the patient did not have any further episodes of bleeding and hemodynamically stable will defer from laparotomy and intraoperative enteroscopy. Patient would benefit from balloon assisted enteroscopy and inpatient capsule endoscopy to further evaluate the small bowel. Discussed with the GI team at [facility] in [place]. Patient was accepted for transfer Follow-up hemoglobin, clear liquid diet. 06/20/18 22:22
[2018-06-20 08:39] LABS: BASO # 0.02 K/mm3 (0.0-2.0); BASO % 0.2 % (0.0-3.0); EOS # 0.2 (0.0-0.7); EOS % 2.1 % (1.5-5.0); HEMOGLOBIN 9.1 g/dL (14.0-18.0); LYMPH # 0.4 (1.2-3.4); LYMPH % 4.1 % (22.0-35.0); MEAN CELL VOLUME 90.4 fl (80.0-105.0); MEAN CORPUSCULAR HEMOGLOBIN 30.1 pg (25.0-35.0); MEAN CORPUSCULAR HGB CONC 33.3 g/dl (31.0-37.0); MEAN PLATELET VOLUME 8.9 fl (7.0-11.0); MONO # 0.9 (0.1-0.6); MONO % 8.8 % (1.0-6.0); PLATELET COUNT 139 10^3/uL (120.0-450.0); RBC 3.02 10^6/uL (3.5-6.1); RED CELL DISTRIBUTION WIDTH 15.9 % (11.5-14.5); WHITE BLOOD COUNT 10.7 10^3/uL (4.5-11.0)
[2018-06-20 08:43] LABS: INR 1.21; PROTHROMBIN TIME 13.7 SECONDS (9.4-12.5)
[2018-06-20 08:49] LABS: ALB/GLOB RATIO 0.8 (1.1-1.8); ALBUMIN 2.7 g/dL (3.0-4.8)
[2018-06-20 09:16] LABS: EOSINOPHIL 1 % (0.0-3.0); LYMPHOCYTE 5 % (22.0-35.0); MONOCYTE 1 % (1.0-6.0); NEUTROPHIL 93 % (50.0-70.0); PLATELET ESTIMATE NORMAL (NORMAL)
--- NOTE | 2018-06-20 09:16 | RAD ---
Date of service: 06/19/2018 HISTORY: r/o pna/chf. COMPARISON: 06/15/2018 TECHNIQUE: 1 view obtained. FINDINGS: LUNGS: No active pulmonary disease. PLEURA: No significant pleural effusion identified, no pneumothorax apparent. CARDIOVASCULAR: No aortic atherosclerotic calcification present. Moderate cardiomegaly. Single lead pacer no pulmonary vascular congestion. OSSEOUS STRUCTURES: No significant abnormalities. VISUALIZED UPPER ABDOMEN: Normal. OTHER FINDINGS: None. IMPRESSION: No active disease.
[2018-06-20] MEDS: Multivitamin Vitamin B Complex (Nephro-Vite) Tab PO SCH (10:00)
[2018-06-20 12:16] LABS: IRON 13 ug/dL (45-180)
[2018-06-20 12:25] LABS: % IRON SATURATION 7 % (20-55); TOTAL IRON BINDING CAPACITY 175 ug/dL (261-462)
--- NOTE | 2018-06-20 13:25 | PN ---
DATE: 06/20/2018 SUBJECTIVE: The patient is comfortable. Hemoglobin is stable today. PHYSICAL EXAMINATION: VITAL SIGNS: Stable. NECK: Negative JVD. LUNGS: Without rales. HEART: S1 and S2. EXTREMITIES: Without edema. IMPRESSION: 1. Recurrent lower gastrointestinal bleed. 2. Dilated cardiomyopathy (severe). 3. End-stage renal disease. 4. Anemia, which is stable today. PLAN: Given these findings, awaiting decisions between surgery and GI about future therapeutic plans. Kamari Watt MD
--- NOTE | 2018-06-20 13:50 | PN ---
DATE: 06/20/2018 SUBJECTIVE: The patient is seen lying in bed in the ICU. He is awake, he is alert. He denies any chest pain. He denies any shortness of breath. He denies any abdominal pain. He reports feeling a little bit better. He denies any nausea, vomiting or diarrhea. PHYSICAL EXAMINATION: GENERAL: Elderly male lying in bed. VITAL SIGNS: Blood pressure 129/65, heart rate 75, respiratory rate 18, temperature 98.5. HEENT: Normocephalic, atraumatic, positive pallor. NECK: Supple, no JVD. LUNGS: Bilateral equal entry, bilateral equal expansion. CARDIAC: S1, S2, regular rate and rhythm, no murmur, no rub. ABDOMEN: Soft, nondistended, nontender, bowel sounds present. EXTREMITIES: No lower extremity edema. LABORATORY DATA: WBC 10.7, hemoglobin 9, hematocrit 27, platelets 139. Sodium 134, potassium 4.1, chloride 101, CO2 of 23, BUN 29, creatinine 6.4, glucose 55, calcium 8, phosphorus 5.8, magnesium 1.9, albumin 2.7. Chest x-ray, no active disease. CURRENT MEDICATIONS: Cordarone 200, Flomax 0.4, Lipitor 40, meropenem 250, Nephro-Tyson, ProAmatine, Protonix, Renvela, Tylenol. ASSESSMENT: 1. Severe life-threatening gastrointestinal bleed. 2. Severe anemia. 3. Dilated cardiomyopathy, decreased ejection fraction, automatic implantable cardioverter defibrillator. 4. Non-insulin dependent diabetes mellitus. 5. End-stage renal disease. 6. Recent automatic implantable cardioverter defibrillator lead infection. PLAN: 1. Dialysis today with no heparin. 2. Surgical followup. 3. Needs definitive procedure? Laparotomy. 4. Continue to monitor hemoglobin and hematocrit. 5. Discussed with Dr. Bruner and Dr. Gayle. Grecia Young MD
--- NOTE | 2018-06-20 14:02 | CP.PCM.PN ---
Subjective - Date & Time of Evaluation Date of Evaluation: 06/20/18 Time of Evaluation: 07:00 - Subjective Subjective: General surgery progress note for Dr. Natali Christian, PGY-2 Pt seen/examined at bedside. Pt reports no abdominal pain, no nausea, had one bowel movement overnight. Per nursing- BM was non bloody. No current complaints. Objective - Vital Signs/Intake and Output Vital Signs (last 24 hours): Temp Pulse Resp BP Pulse Ox 98.6 F 67 13 133/61 99 06/20/18 04:00 06/20/18 10:30 06/19/18 20:28 06/20/18 10:30 06/19/18 18:00 Intake and Output: 06/20/18 06/20/18 06:59 18:59 Intake Total 750 Output Total 0 Balance 750 - Medications Medications: Current Medications Acetaminophen (Tylenol 325mg Tab) 650 mg PO Q6H PRN PRN Reason: Pain, moderate (4-7) Last Admin: 06/18/18 21:10 Dose: 650 mg Amiodarone HCl (Cordarone) 200 mg PO DAILY [facility] Last Admin: 06/20/18 10:30 Dose: 200 mg Atorvastatin Calcium (Lipitor) 40 mg PO DIN [facility] Last Admin: 06/19/18 17:48 Dose: 40 mg Meropenem 250 mg/ Sodium (Chloride) 100 mls @ 100 mls/hr IVPB Q12H [facility]; Protocol Stop: 06/26/18 22:01 Last Admin: 06/20/18 12:20 Dose: 100 mls/hr Midodrine (Proamatine) 5 mg PO 0800,1200,1600 [facility] Last Admin: 06/20/18 12:26 Dose: 5 mg Pantoprazole Sodium (Protonix Inj) 40 mg IVP DAILY [facility] Last Admin: 06/20/18 12:23 Dose: 40 mg Sevelamer HCl (Renagel) 800 mg PO BID [facility] Last Admin: 06/20/18 12:23 Dose: 800 mg Tamsulosin HCl (Flomax) 0.4 mg PO DAILY [facility] Last Admin: 06/20/18 10:00 Dose: 0.4 mg Vitamin B Complex/Vit C/Folic Acid (Nephro-Tyson) 1 tab PO DAILY [facility] Last Admin: 06/20/18 10:00 Dose: 1 tab - Labs Labs: 06/20/18 08:15 06/20/18 08:15 PT 13.7 SECONDS (9.4-12.5) H 06/20/18 08:15 INR 1.21 06/20/18 08:15 APTT 35.4 Seconds (26.9-38.3) 06/15/18 11:00 - Constitutional Appears: Non-toxic, No Acute Distress - Head Exam Head Exam: ATRAUMATIC, NORMAL INSPECTION, NORMOCEPHALIC - Eye Exam Eye Exam: EOMI, Normal appearance - ENT Exam ENT Exam: Mucous Membranes Moist, Normal Exam - Neck Exam Neck Exam: Full ROM, Normal Inspection - Respiratory Exam Respiratory Exam: NORMAL BREATHING PATTERN. absent: Rales, Rhonchi, Wheezes, Respiratory Distress - Cardiovascular Exam Cardiovascular Exam: REGULAR RHYTHM - GI/Abdominal Exam GI & Abdominal Exam: Soft, Normal Bowel Sounds. absent: Distended, Firm, Guar ding, Rigid, Tenderness - Extremities Exam Extremities Exam: Normal Inspection - Neurological Exam Neurological Exam: Alert, Awake, CN II-XII Intact, Oriented x3 - Psychiatric Exam Psychiatric exam: Normal Affect, Normal Mood - Skin Skin Exam: Dry, Intact, Normal Color, Warm Assessment and Plan - Assessment and Plan (Free Text) Assessment: 67M w/GIB bleed Plan: Meckel scan negative No current bloody BMs Plan for capsule evaluation with GI Surgical intervention if positive findings on capsule evaluation Further care as per primary team DW Dr. Winter
--- NOTE | 2018-06-20 15:04 | CP.PCM.PN ---
<Quang Parker - Last Filed: 06/20/18 15:00> Subjective - Date & Time of Evaluation Date of Evaluation: 06/20/18 Time of Evaluation: 09:50 - Subjective Subjective: Quang Parker D.O. PGY-3, Internal Medicine, Infectious Disease Consultation Note 67 year old male with a PMH of dilated cardiomyopathy s/p defibrillator, ESRD on HD M/W/F, DM, Arthritis, HTN and anemia of chronic disease/iron deficiency who is admitted with symptomatic anemia and bloody stool movement. Infectious disease consultation was requested for UTI. Patient was seen and examined at bedside. Resting comfortably in ICU. No acute complaints. Objective - Vital Signs/Intake and Output Vital Signs (last 24 hours): Temp Pulse Resp BP Pulse Ox 98.6 F 67 13 133/61 99 06/20/18 04:00 06/20/18 10:30 06/19/18 20:28 06/20/18 10:30 06/19/18 18:00 Intake and Output: 06/20/18 06/20/18 06:59 18:59 Intake Total 750 Output Total 0 Balance 750 - Medications Medications: Current Medications Acetaminophen (Tylenol 325mg Tab) 650 mg PO Q6H PRN PRN Reason: Pain, moderate (4-7) Last Admin: 06/18/18 21:10 Dose: 650 mg Amiodarone HCl (Cordarone) 200 mg PO DAILY [facility] Last Admin: 06/20/18 10:30 Dose: 200 mg Atorvastatin Calcium (Lipitor) 40 mg PO DIN [facility] Last Admin: 06/19/18 17:48 Dose: 40 mg Meropenem 250 mg/ Sodium (Chloride) 100 mls @ 100 mls/hr IVPB Q12H [facility]; Protocol Stop: 06/26/18 22:01 Last Admin: 06/20/18 12:20 Dose: 100 mls/hr Midodrine (Proamatine) 5 mg PO 0800,1200,1600 [facility] Last Admin: 06/20/18 12:26 Dose: 5 mg Pantoprazole Sodium (Protonix Inj) 40 mg IVP DAILY [facility] Last Admin: 06/20/18 12:23 Dose: 40 mg Sevelamer HCl (Renagel) 800 mg PO BID [facility] Last Admin: 06/20/18 12:23 Dose: 800 mg Tamsulosin HCl (Flomax) 0.4 mg PO DAILY [facility] Last Admin: 06/20/18 10:00 Dose: 0.4 mg Vitamin B Complex/Vit C/Folic Acid (Nephro-Tyson) 1 tab PO DAILY [facility] Last Admin: 06/20/18 10:00 Dose: 1 tab - Labs Labs: 06/20/18 08:15 06/20/18 08:15 PT 13.7 SECONDS (9.4-12.5) H 06/20/18 08:15 INR 1.21 06/20/18 08:15 APTT 35.4 Seconds (26.9-38.3) 06/15/18 11:00 - Constitutional Appears: Non-toxic, No Acute Distress - Head Exam Head Exam: ATRAUMATIC, NORMAL INSPECTION - Eye Exam Eye Exam: Normal appearance. absent: Scleral icterus - ENT Exam ENT Exam: Mucous Membranes Moist, Normal Exam - Neck Exam Neck exam: Positive for: Full Rom, Normal Inspection - Respiratory Exam Respiratory Exam: CTAB, no W/R/R - Cardiovascular Exam Cardiovascular Exam: RRR, +S1, +S2, s/p AICD - GI/Abdominal Exam GI & Abdominal Exam: Soft. absent: Distended, Tenderness - Extremities Exam Extremities exam: LUE AVF with palpable thrill - Neurological Exam Neurological exam: Alert, Oriented x3 - Skin Skin Exam: Normal Color, Warm Assessment and Plan - Assessment and Plan (Free Text) Assessment: 67 year old male with a PMH of dilated cardiomyopathy s/p defibrillator, ESRD on HD M/W/F, DM, Arthritis, HTN and anemia of chronic disease/iron deficiency who is admitted with symptomatic anemia and bloody stool movement. Infectious disease consultation was requested for UTI. Plan: Cystitis, urinary tract infection ESRD on HD M/W/F DM Arthritis HTN Anemia Dilated cardiomyopathy Afebrile No leukocytosis Pending urine cultures and blood cultures MRSA nares negative Empirically on meropenem day 2 Surgery and GI notes reviewed and appreciated We will follow with you Patient was seen and examined and case to be discussed with attending physician Thank you for the pleasure of participating in the care of this patient <Charlie Taylor - Last Filed: 06/20/18 15:33> Objective - Vital Signs/Intake and Output Vital Signs (last 24 hours): Temp Pulse Resp BP Pulse Ox 98.6 F 67 13 133/61 99 06/20/18 04:00 06/20/18 10:30 06/19/18 20:28 06/20/18 10:30 06/19/18 18:00 Intake and Output: 06/20/18 06/20/18 06:59 18:59 Intake Total 750 Output Total 0 Balance 750 - Medications Medications: Current Medications Acetaminophen (Tylenol 325mg Tab) 650 mg PO Q6H PRN PRN Reason: Pain, moderate (4-7) Last Admin: 06/18/18 21:10 Dose: 650 mg Amiodarone HCl (Cordarone) 200 mg PO DAILY [facility] Last Admin: 06/20/18 10:30 Dose: 200 mg Atorvastatin Calcium (Lipitor) 40 mg PO DIN [facility] Last Admin: 06/19/18 17:48 Dose: 40 mg Meropenem 250 mg/ Sodium (Chloride) 100 mls @ 100 mls/hr IVPB Q12H [facility]; Protocol Stop: 06/26/18 22:01 Last Admin: 06/20/18 12:20 Dose: 100 mls/hr Midodrine (Proamatine) 5 mg PO 0800,1200,1600 [facility] Last Admin: 06/20/18 12:26 Dose: 5 mg Pantoprazole Sodium (Protonix Inj) 40 mg IVP DAILY [facility] Last Admin: 06/20/18 12:23 Dose: 40 mg Sevelamer HCl (Renagel) 800 mg PO BID [facility] Last Admin: 06/20/18 12:23 Dose: 800 mg Tamsulosin HCl (Flomax) 0.4 mg PO DAILY [facility] Last Admin: 06/20/18 10:00 Dose: 0.4 mg Vitamin B Complex/Vit C/Folic Acid (Nephro-Tyson) 1 tab PO DAILY [facility] Last Admin: 06/20/18 10:00 Dose: 1 tab - Labs Labs: 06/20/18 08:15 06/20/18 08:15 PT 13.7 SECONDS (9.4-12.5) H 06/20/18 08:15 INR 1.21 06/20/18 08:15 APTT 35.4 Seconds (26.9-38.3) 06/15/18 11:00 Attending/Attestation - Attestation I have personally seen and examined this patient.: Yes I have fully participated in the care of the patient.: Yes I have reviewed all pertinent clinical information, including history, physical exam and plan: Yes
--- NOTE | 2018-06-20 16:55 | CP.PCM.PN ---
Subjective - Date & Time of Evaluation Date of Evaluation: 06/20/18 Time of Evaluation: 16:40 - Subjective Subjective: Medicine progress note - Mame PGY - 2 Ptient seen and examined at bedside. No acute overnight events. Denies any new bleeding. Patient responding well and is alert and oriented with no acute signs of distress. Objective - Vital Signs/Intake and Output Vital Signs (last 24 hours): Temp Pulse Resp BP Pulse Ox 98.6 F 77 16 122/64 95 06/20/18 04:00 06/20/18 15:45 06/20/18 15:45 06/20/18 15:45 06/20/18 15:45 Intake and Output: 06/20/18 06/20/18 06:59 18:59 Intake Total 750 Output Total 0 Balance 750 - Medications Medications: Current Medications Acetaminophen (Tylenol 325mg Tab) 650 mg PO Q6H PRN PRN Reason: Pain, moderate (4-7) Last Admin: 06/18/18 21:10 Dose: 650 mg Amiodarone HCl (Cordarone) 200 mg PO DAILY [facility] Last Admin: 06/20/18 10:30 Dose: 200 mg Atorvastatin Calcium (Lipitor) 40 mg PO DIN [facility] Last Admin: 06/19/18 17:48 Dose: 40 mg Meropenem 250 mg/ Sodium (Chloride) 100 mls @ 100 mls/hr IVPB Q12H [facility]; Protocol Stop: 06/26/18 22:01 Last Admin: 06/20/18 12:20 Dose: 100 mls/hr Midodrine (Proamatine) 5 mg PO 0800,1200,1600 [facility] Last Admin: 06/20/18 12:26 Dose: 5 mg Pantoprazole Sodium (Protonix Inj) 40 mg IVP DAILY [facility] Last Admin: 06/20/18 12:23 Dose: 40 mg Sevelamer HCl (Renagel) 800 mg PO BID [facility] Last Admin: 06/20/18 12:23 Dose: 800 mg Tamsulosin HCl (Flomax) 0.4 mg PO DAILY [facility] Last Admin: 06/20/18 10:00 Dose: 0.4 mg Vitamin B Complex/Vit C/Folic Acid (Nephro-Elvie) 1 tab PO DAILY [facility] Last Admin: 06/20/18 10:00 Dose: 1 tab - Labs Labs: 06/20/18 08:15 06/20/18 08:15 PT 13.7 SECONDS (9.4-12.5) H 06/20/18 08:15 INR 1.21 06/20/18 08:15 APTT 35.4 Seconds (26.9-38.3) 06/15/18 11:00 - Constitutional Appears: Well - Head Exam Head Exam: ATRAUMATIC, NORMAL INSPECTION, NORMOCEPHALIC - Eye Exam Eye Exam: EOMI, Normal appearance, PERRL Pupil Exam: NORMAL ACCOMODATION, PERRL - ENT Exam ENT Exam: Mucous Membranes Moist, Normal Exam - Neck Exam Neck Exam: Full ROM, Normal Inspection. absent: Lymphadenopathy - Respiratory Exam Respiratory Exam: Clear to Ausculation Bilateral, NORMAL BREATHING PATTERN - Cardiovascular Exam Cardiovascular Exam: REGULAR RHYTHM, +S1, +S2. absent: Murmur - GI/Abdominal Exam GI & Abdominal Exam: Soft, Normal Bowel Sounds. absent: Tenderness - Extremities Exam Extremities Exam: Full ROM, Normal Capillary Refill, Normal Inspection. absent: Joint Swelling, Pedal Edema - Back Exam Back Exam: NORMAL INSPECTION - Neurological Exam Neurological Exam: Alert, Awake, CN II-XII Intact, Normal Gait, Oriented x3 - Psychiatric Exam Psychiatric exam: Normal Affect, Normal Mood - Skin Skin Exam: Dry, Intact, Normal Color, Warm Assessment and Plan - Assessment and Plan (Free Text) Assessment: 67 M presented with acute blood loss anemia. He is s/p colonoscopy and endoscopy. Patient is stable now. Plan Acute blood loss anemia - Continue to monitor H/H - Midodrine - Patient to get a GI capsule study per Surgery Cystitis - Still pending urine and blood cx - Continue Merrem for now - ID following - ACEP prn for fever Hx Dilated Cardiomyopathy - Continue Amiodarone, Lipitor, Midodrine Hx ESRD on HD - Monitor electrolytes - Continue Renegel, Nephro-elvie - Nephro consult: Dr. Young Hx Anemia - Hold ASA - Continue ferrous Sulfate Hx DM - Accuchecks; no RISS right now PPX: SCD, Protonix (not protonix drip)
[2018-06-20 17:23] LABS: HEPATITIS B SURFACE AG Negative (NEGATIVE)
--- NOTE | 2018-06-20 20:19 | PN ---
DATE: 06/20/2018 SUBJECTIVE: The patient was seen in [facility], bed 1. The patient is lying in the bed, comfortable. Denies any rectal bleeding. At the present, the patient is undergoing hemodialysis.. The patient is undergoing hemodialysis via the left upper extremity AV fistula. PHYSICAL EXAMINATION VITAL SIGNS: T-max is 99. The patient's telemetry shows sinus rhythm. Blood pressure 122/64, 133/65, respiration 16-18, and O2 sat 95% to 100%. HEENT: Head is normocephalic, atraumatic. HEENT examination shows pinkish pale conjunctivae. Anicteric sclerae. No oropharyngeal lesion. NECK: No neck rigidity. CHEST: Shows kyphosis. Positive left upper chest pacemaker noted. CARDIOVASCULAR: S1, S2. Positive systolic murmur left sternal border, right second intercostal space, left second intercostal space. ABDOMEN: Soft. Positive bowel sound. No palpable hepatosplenomegaly. GENITALIA: Male. RECTAL: Deferred. EXTREMITIES: Shows positive left upper extremity AV fistula, positive thrill. NEUROLOGIC: The patient's gait examination is not tested as the patient is lying in the bed. IMPRESSION AND PLAN 1. Lower gastrointestinal bleeding with bright red blood per rectum. 2. History of hypotension. 3. Acute blood loss anemia with hemoglobin dropping to 5.9. 4. Transient thrombocytopenia. 5. Granulocytosis. 6. Mild coagulopathy. 7. End-stage renal disease, hemodialysis dependent. 8. Possible iron-deficiency anemia. 9. Mild hypoproteinemia. 10. Mild hypoalbuminemia. 11. Hyperphosphatemia. 12. Questionable urinary tract infection with proteinuria, glycosuria, ketonuria, hematuria, pyuria and bacteriuria. 13. History of Escherichia coli bacteremia. 14. Status post packed red blood cell transfusion x12. 15. Status post FFP transfusion x5. 16. Status post 1 unit of platelet transfusion. 17. Cardiomegaly. 18. Cholelithiasis. 19. Possible bladder outlet obstruction versus cystitis. 20. Prostatomegaly. 21. An L5-S1 degenerative disc disease. 22. Right axis deviation. 23. Sigmoid and descending colon diverticulosis. 24. Internal hemorrhoid. 25. Clotted blood in the colon. 26. Possible small bowel bleeding. 27. Blood in the ileum 20 cm proximal to the ileocecal valve. 28. Blood in the terminal ileum. 29. Redundant colon. 30. Questionable cystitis versus urinary tract infection. 31. Rheumatoid arthritis of the hands. 32. Dilated cardiomyopathy. 33. Acute blood loss anemia secondary to massive gastrointestinal bleeding. 34. Status post hypovolemic, hypotensive and hemorrhagic shock. 35. History of cecal arteriovenous malformation. 36. History of dilated cardiomyopathy, history of automatic implantable cardioverter defibrillator implant. 37. Prostatic hypertrophy versus bladder output obstruction. 38. History of hyperlipidemia. PLAN: At this time, the patient is being evaluated by GI and surgery for possible surgical intervention. The patient has been ordered serial labs in the a.m. The patient is presently undergoing hemodialysis. The patient has been ordered IV antibiotic. The patient's current consultations; Gastroenterology, Nephrology, Cardiology, Critical care Surgery and Infectious Disease. CURRENT MEDICATIONS: The patient will be continued on amiodarone 200 mg daily, the patient received a dose of desmopressin 40 mcg x1, Flomax 0.4 mg daily, Lipitor 40 mg daily, meropenem 250 mg IV every 12 hours, Nephro-Tyson 1 tablet daily, midodrine 5 mg three times a day, Protonix 40 mg daily, Renagel 800 mg twice a day, Tylenol 650 mg every 6 hours p.r.n. The patient has been ordered a Meckel's scan. The patient is on n.p.o. diet by the ICU resident. The patient is on fingerstick blood sugar, hemodialysis. The patient has been updated about his condition, diagnosis, treatment plan, management plan at length and all questions concerned answered, which he acknowledged and understood. Dictated and electronically signed, not read. Geoffrey Thacker MD
[2018-06-21 06:25] LABS: BASO # 0.02 K/mm3 (0.0-2.0); BASO % 0.2 % (0.0-3.0); EOS # 0.3 (0.0-0.7); EOS % 2.9 % (1.5-5.0); HEMOGLOBIN 9.3 g/dL (14.0-18.0); LYMPH # 0.4 (1.2-3.4); LYMPH % 3.9 % (22.0-35.0); MEAN CELL VOLUME 91.4 fl (80.0-105.0); MEAN CORPUSCULAR HEMOGLOBIN 29.7 pg (25.0-35.0); MEAN CORPUSCULAR HGB CONC 32.5 g/dl (31.0-37.0); MEAN PLATELET VOLUME 9.1 fl (7.0-11.0); RBC 3.13 10^6/uL (3.5-6.1); RED CELL DISTRIBUTION WIDTH 15.8 % (11.5-14.5); WHITE BLOOD COUNT 9.6 10^3/uL (4.5-11.0)
--- NOTE | 2018-06-21 07:10 | CP.CCUPN ---
<Albert Zavala - Last Filed: 06/21/18 13:17> CCU Subjective - Physician Review Events Since Last Encounter (Free Text): 06/21/18 07:08 no acute events overnight Subjective (Free Text): 06/16/18 06:59 Pt seen and examined in the ICU, reports 2 episodes of BRBPR since arrival, reports daily ASA use. Denies chest pain, SOB, lightheadedness. 06/17/18 06:56 Pt seen and examined, pt has no new complaints at this time. Denies chest pain, SOB, dizziness. 06/21/18 07:09 pt seen and examined, denies chest pain, SOB, or blood in the stool CCU Objective - Vital Signs / Intake & Output Vital Signs (Last 4 hours): Vital Signs Temp Pulse Resp BP Pulse Ox 06/21/18 06:30 78 18 138/68 100 06/21/18 06:15 76 23 128/65 100 06/21/18 06:00 75 23 118/69 98 06/21/18 05:45 77 20 125/65 95 06/21/18 05:30 80 11 L 125/71 98 06/21/18 05:15 74 24 124/63 100 06/21/18 05:00 76 31 H 125/67 100 06/21/18 04:45 74 20 110/51 L 99 06/21/18 04:30 73 12 115/54 L 98 06/21/18 04:15 75 15 121/53 L 98 06/21/18 04:00 98 F 75 18 120/59 L 99 06/21/18 03:45 75 34 H 120/63 98 06/21/18 03:30 81 14 114/58 L 97 06/21/18 03:15 92 H 137/68 100 06/21/18 03:14 87 100 Intake and Output (Last 8hrs): Intake & Output 06/20/18 06/21/18 06/21/18 22:59 06:59 14:59 Intake Total 100 Output Total 1500 Balance -1400 Intake: Oral 100 Output: Other 1500 - Physical Exam Physical Exam Limitations: Negative for: Altered Mental Status Head: Positive for: Atraumatic, Normocephalic Pupils: Positive for: PERRL Extroacular Muscles: Positive for: EOMI Conjunctiva: Positive for: Normal Mouth: Positive for: Moist Mucous Membranes Neck: Positive for: Normal Range of Motion Respiratory/Chest: Positive for: Clear to Auscultation, Good Air Exchange. Negative for: Respiratory Distress, Accessory Muscle Use Cardiovascular: Positive for: Regular Rate and Rhythm, Normal S1, S2. Negative for: Murmurs Abdomen: Negative for: Tenderness, Distention, Peritoneal Signs Rectal: Positive for: Occult Blood (bright red blood ) Back: Positive for: Normal Inspection Upper Extremity: Positive for: Normal Inspection, Other (left AV fistula). Negative for: Cyanosis, Edema Lower Extremity: Positive for: Normal Inspection. Negative for: Edema Neurological: Positive for: GCS=15, CN II-XII Intact, Speech Normal Skin: Positive for: Warm, Dry, Normal Color. Negative for: Rashes Psychiatric: Positive for: Alert, Oriented x 3, Normal Insight, Normal Concentration - Medications Active Medications: Active Medications Generic Name Dose Route Start Last Admin Trade Name Freq PRN Reason Stop Dose Admin Acetaminophen 650 mg 06/18/18 20:52 06/18/18 21:10 Tylenol 325mg Tab PO 650 mg Q6H PRN Administration Pain, moderate (4-7) Amiodarone HCl 200 mg 06/16/18 10:00 06/20/18 10:30 Cordarone PO 200 mg DAILY JAVIER Administration Atorvastatin Calcium 40 mg 06/15/18 17:00 06/20/18 18:00 Lipitor PO 40 mg DIN JAVIER Administration Meropenem 250 mg/ Sodium 100 mls @ 100 mls/hr 06/19/18 22:00 06/20/18 21:19 Chloride IVPB 06/26/18 22:01 100 mls/hr Q12H JAVIER Administration Protocol Midodrine 5 mg 06/16/18 12:00 06/20/18 17:25 Proamatine PO 5 mg 0800,1200,1600 JAVIER Administration Pantoprazole Sodium 40 mg 06/16/18 10:00 06/20/18 12:23 Protonix Inj IVP 40 mg DAILY JAVIER Administration Sevelamer HCl 800 mg 06/16/18 09:43 06/20/18 18:30 Renagel PO 800 mg BID JAVIER Administration Tamsulosin HCl 0.4 mg 06/16/18 10:00 06/20/18 10:00 Flomax PO 0.4 mg DAILY JAVIER Administration Vitamin B Complex/Vit C/Folic Acid 1 tab 06/16/18 10:00 06/20/18 10:00 Nephro-Tyson PO 1 tab DAILY JAVIER Administration - Patient Studies Lab Studies: Microbiology Studies 06/19/18 22:30 Blood Culture - Preliminary Blood NO GROWTH AFTER 24 HOURS 06/19/18 22:00 Blood Culture - Preliminary Blood NO GROWTH AFTER 24 HOURS Lab Studies 06/21/18 06/20/18 06/20/18 Range/Units 05:20 21:49 16:26 WBC 9.6 (4.5-11.0) 10^3/uL RBC 3.13 L (3.5-6.1) 10^6/uL Hgb 9.3 L (14.0-18.0) g/dL Hct 28.6 L (42.0-52.0) % MCV 91.4 (80.0-105.0) fl MCH 29.7 (25.0-35.0) pg MCHC 32.5 (31.0-37.0) g/dl RDW 15.8 H (11.5-14.5) % Plt Count 154 (120.0-450.0) 10^3/uL MPV 9.1 (7.0-11.0) fl Neut % (Auto) 83.0 H (50.0-68.0) % Lymph % (Auto) 3.9 L (22.0-35.0) % Vernon % (Auto) 10.0 H (1.0-6.0) % Eos % (Auto) 2.9 (1.5-5.0) % Baso % (Auto) 0.2 (0.0-3.0) % Lymph # (Auto) 0.4 L (1.2-3.4) Vernon # (Auto) 1.0 H (0.1-0.6) Eos # (Auto) 0.3 (0.0-0.7) Baso # (Auto) 0.02 (0.0-2.0) K/mm3 Absolute Neuts (auto) 7.99 H (1.4-6.5) Neutrophils % (Manual) (50.0-70.0) % Lymphocytes % (Manual) (22.0-35.0) % Monocytes % (Manual) (1.0-6.0) % Eosinophils % (Manual) (0.0-3.0) % Platelet Evaluation (NORMAL) PT (9.4-12.5) SECONDS INR Sodium (132-148) mmol/L Potassium (3.6-5.0) mmol/L Chloride (98-107) mmol/L Carbon Dioxide (21-33) mmol/L Anion Gap (10-20) BUN (7-21) mg/dL Creatinine (0.8-1.5) mg/dl Est GFR ( Amer) Est GFR (Non-Af Amer) POC Glucose (mg/dL) 75 61 L (65-110) mg/dL Random Glucose (70-110) mg/dL Calcium (8.4-10.5) mg/dL Phosphorus (2.5-4.5) mg/dL Magnesium (1.7-2.2) mg/dL Iron (45-180) ug/dL TIBC (261-462) ug/dL % Saturation (20-55) % Ferritin ng/mL Total Bilirubin (0.2-1.3) mg/dL AST (17-59) U/L ALT (7-56) U/L Alkaline Phosphatase (38-126) U/L Total Protein (5.8-8.3) g/dL Albumin (3.0-4.8) g/dL Globulin gm/dL Albumin/Globulin Ratio (1.1-1.8) Hep Bs Antigen (NEGATIVE) 06/20/18 06/20/18 06/20/18 Range/Units 11:40 11:40 10:58 WBC (4.5-11.0) 10^3/uL RBC (3.5-6.1) 10^6/uL Hgb (14.0-18.0) g/dL Hct (42.0-52.0) % MCV (80.0-105.0) fl MCH (25.0-35.0) pg MCHC (31.0-37.0) g/dl RDW (11.5-14.5) % Plt Count (120.0-450.0) 10^3/uL MPV (7.0-11.0) fl Neut % (Auto) (50.0-68.0) % Lymph % (Auto) (22.0-35.0) % Vernon % (Auto) (1.0-6.0) % Eos % (Auto) (1.5-5.0) % Baso % (Auto) (0.0-3.0) % Lymph # (Auto) (1.2-3.4) Vernon # (Auto) (0.1-0.6) Eos # (Auto) (0.0-0.7) Baso # (Auto) (0.0-2.0) K/mm3 Absolute Neuts (auto) (1.4-6.5) Neutrophils % (Manual) (50.0-70.0) % Lymphocytes % (Manual) (22.0-35.0) % Monocytes % (Manual) (1.0-6.0) % Eosinophils % (Manual) (0.0-3.0) % Platelet Evaluation (NORMAL) PT (9.4-12.5) SECONDS INR Sodium (132-148) mmol/L Potassium (3.6-5.0) mmol/L Chloride (98-107) mmol/L Carbon Dioxide (21-33) mmol/L Anion Gap (10-20) BUN (7-21) mg/dL Creatinine (0.8-1.5) mg/dl Est GFR ( Amer) Est GFR (Non-Af Amer) POC Glucose (mg/dL) 64 L (65-110) mg/dL Random Glucose (70-110) mg/dL Calcium (8.4-10.5) mg/dL Phosphorus (2.5-4.5) mg/dL Magnesium (1.7-2.2) mg/dL Iron 13 L (45-180) ug/dL TIBC 175 L (261-462) ug/dL % Saturation 7 L (20-55) % Ferritin 434.0 ng/mL Total Bilirubin (0.2-1.3) mg/dL AST (17-59) U/L ALT (7-56) U/L Alkaline Phosphatase (38-126) U/L Total Protein (5.8-8.3) g/dL Albumin (3.0-4.8) g/dL Globulin gm/dL Albumin/Globulin Ratio (1.1-1.8) Hep Bs Antigen Negative (NEGATIVE) 06/20/18 06/20/18 06/20/18 Range/Units 08:15 08:15 08:15 WBC 10.7 D (4.5-11.0) 10^3/uL RBC 3.02 L (3.5-6.1) 10^6/uL Hgb 9.1 L (14.0-18.0) g/dL Hct 27.3 L (42.0-52.0) % MCV 90.4 (80.0-105.0) fl MCH 30.1 (25.0-35.0) pg MCHC 33.3 (31.0-37.0) g/dl RDW 15.9 H (11.5-14.5) % Plt Count 139 (120.0-450.0) 10^3/uL MPV 8.9 (7.0-11.0) fl Neut % (Auto) 84.8 H (50.0-68.0) % Lymph % (Auto) 4.1 L (22.0-35.0) % Vernon % (Auto) 8.8 H (1.0-6.0) % Eos % (Auto) 2.1 (1.5-5.0) % Baso % (Auto) 0.2 (0.0-3.0) % Lymph # (Auto) 0.4 L (1.2-3.4) Vernon # (Auto) 0.9 H (0.1-0.6) Eos # (Auto) 0.2 (0.0-0.7) Baso # (Auto) 0.02 (0.0-2.0) K/mm3 Absolute Neuts (auto) 9.07 H (1.4-6.5) Neutrophils % (Manual) 93 H (50.0-70.0) % Lymphocytes % (Manual) 5 L (22.0-35.0) % Monocytes % (Manual) 1 (1.0-6.0) % Eosinophils % (Manual) 1 (0.0-3.0) % Platelet Evaluation Normal (NORMAL) PT 13.7 H (9.4-12.5) SECONDS INR 1.21 Sodium 134 (132-148) mmol/L Potassium 4.1 (3.6-5.0) mmol/L Chloride 101 (98-107) mmol/L Carbon Dioxide 23 (21-33) mmol/L Anion Gap 15 (10-20) BUN 29 H (7-21) mg/dL Creatinine 6.4 H (0.8-1.5) mg/dl Est GFR ( Amer) 11 Est GFR (Non-Af Amer) 9 POC Glucose (mg/dL) (65-110) mg/dL Random Glucose 55 L (70-110) mg/dL Calcium 8.0 L (8.4-10.5) mg/dL Phosphorus 5.8 H (2.5-4.5) mg/dL Magnesium 1.9 (1.7-2.2) mg/dL Iron (45-180) ug/dL TIBC (261-462) ug/dL % Saturation (20-55) % Ferritin ng/mL Total Bilirubin 1.0 (0.2-1.3) mg/dL AST 31 (17-59) U/L ALT 26 (7-56) U/L Alkaline Phosphatase 92 (38-126) U/L Total Protein 6.0 (5.8-8.3) g/dL Albumin 2.7 L (3.0-4.8) g/dL Globulin 3.3 gm/dL Albumin/Globulin Ratio 0.8 L (1.1-1.8) Hep Bs Antigen (NEGATIVE) 06/20/18 Range/Units 07:13 WBC (4.5-11.0) 10^3/uL RBC (3.5-6.1) 10^6/uL Hgb (14.0-18.0) g/dL Hct (42.0-52.0) % MCV (80.0-105.0) fl MCH (25.0-35.0) pg MCHC (31.0-37.0) g/dl RDW (11.5-14.5) % Plt Count (120.0-450.0) 10^3/uL MPV (7.0-11.0) fl Neut % (Auto) (50.0-68.0) % Lymph % (Auto) (22.0-35.0) % Vernon % (Auto) (1.0-6.0) % Eos % (Auto) (1.5-5.0) % Baso % (Auto) (0.0-3.0) % Lymph # (Auto) (1.2-3.4) Vernon # (Auto) (0.1-0.6) Eos # (Auto) (0.0-0.7) Baso # (Auto) (0.0-2.0) K/mm3 Absolute Neuts (auto) (1.4-6.5) Neutrophils % (Manual) (50.0-70.0) % Lymphocytes % (Manual) (22.0-35.0) % Monocytes % (Manual) (1.0-6.0) % Eosinophils % (Manual) (0.0-3.0) % Platelet Evaluation (NORMAL) PT (9.4-12.5) SECONDS INR Sodium (132-148) mmol/L Potassium (3.6-5.0) mmol/L Chloride (98-107) mmol/L Carbon Dioxide (21-33) mmol/L Anion Gap (10-20) BUN (7-21) mg/dL Creatinine (0.8-1.5) mg/dl Est GFR ( Amer) Est GFR (Non-Af Amer) POC Glucose (mg/dL) 59 L (65-110) mg/dL Random Glucose (70-110) mg/dL Calcium (8.4-10.5) mg/dL Phosphorus (2.5-4.5) mg/dL Magnesium (1.7-2.2) mg/dL Iron (45-180) ug/dL TIBC (261-462) ug/dL % Saturation (20-55) % Ferritin ng/mL Total Bilirubin (0.2-1.3) mg/dL AST (17-59) U/L ALT (7-56) U/L Alkaline Phosphatase (38-126) U/L Total Protein (5.8-8.3) g/dL Albumin (3.0-4.8) g/dL Globulin gm/dL Albumin/Globulin Ratio (1.1-1.8) Hep Bs Antigen (NEGATIVE) Laboratory Results - last 24 hr 06/20/18 06/20/18 06/20/18 07:13 08:15 08:15 WBC 10.7 D RBC 3.02 L Hgb 9.1 L Hct 27.3 L MCV 90.4 MCH 30.1 MCHC 33.3 RDW 15.9 H Plt Count 139 MPV 8.9 Neut % (Auto) 84.8 H Lymph % (Auto) 4.1 L Vernon % (Auto) 8.8 H Eos % (Auto) 2.1 Baso % (Auto) 0.2 Lymph # (Auto) 0.4 L Vernon # (Auto) 0.9 H Eos # (Auto) 0.2 Baso # (Auto) 0.02 Absolute Neuts (auto) 9.07 H Neutrophils % (Manual) 93 H Lymphocytes % (Manual) 5 L Monocytes % (Manual) 1 Eosinophils % (Manual) 1 Platelet Evaluation Normal PT INR Sodium 134 Potassium 4.1 Chloride 101 Carbon Dioxide 23 Anion Gap 15 BUN 29 H Creatinine 6.4 H Est GFR ( Amer) 11 Est GFR (Non-Af Amer) 9 POC Glucose (mg/dL) 59 L Random Glucose 55 L Calcium 8.0 L Phosphorus 5.8 H Magnesium 1.9 Iron TIBC % Saturation Ferritin Total Bilirubin 1.0 AST 31 ALT 26 Alkaline Phosphatase 92 Total Protein 6.0 Albumin 2.7 L Globulin 3.3 Albumin/Globulin Ratio 0.8 L Hep Bs Antigen 06/20/18 06/20/18 06/20/18 08:15 10:58 11:40 WBC RBC Hgb Hct MCV MCH MCHC RDW Plt Count MPV Neut % (Auto) Lymph % (Auto) Vernon % (Auto) Eos % (Auto) Baso % (Auto) Lymph # (Auto) Vernon # (Auto) Eos # (Auto) Baso # (Auto) Absolute Neuts (auto) Neutrophils % (Manual) Lymphocytes % (Manual) Monocytes % (Manual) Eosinophils % (Manual) Platelet Evaluation PT 13.7 H INR 1.21 Sodium Potassium Chloride Carbon Dioxide Anion Gap BUN Creatinine Est GFR ( Amer) Est GFR (Non-Af Amer) POC Glucose (mg/dL) 64 L Random Glucose Calcium Phosphorus Magnesium Iron 13 L TIBC 175 L % Saturation 7 L Ferritin Total Bilirubin AST ALT Alkaline Phosphatase Total Protein Albumin Globulin Albumin/Globulin Ratio Hep Bs Antigen 06/20/18 06/20/18 06/20/18 11:40 16:26 21:49 WBC RBC Hgb Hct MCV MCH MCHC RDW Plt Count MPV Neut % (Auto) Lymph % (Auto) Vernon % (Auto) Eos % (Auto) Baso % (Auto) Lymph # (Auto) Vernon # (Auto) Eos # (Auto) Baso # (Auto) Absolute Neuts (auto) Neutrophils % (Manual) Lymphocytes % (Manual) Monocytes % (Manual) Eosinophils % (Manual) Platelet Evaluation PT INR Sodium Potassium Chloride Carbon Dioxide Anion Gap BUN Creatinine Est GFR ( Amer) Est GFR (Non-Af Amer) POC Glucose (mg/dL) 61 L 75 Random Glucose Calcium Phosphorus Magnesium Iron TIBC % Saturation Ferritin 434.0 Total Bilirubin AST ALT Alkaline Phosphatase Total Protein Albumin Globulin Albumin/Globulin Ratio Hep Bs Antigen Negative 06/21/18 05:20 WBC 9.6 RBC 3.13 L Hgb 9.3 L Hct 28.6 L MCV 91.4 MCH 29.7 MCHC 32.5 RDW 15.8 H Plt Count 154 MPV 9.1 Neut % (Auto) 83.0 H Lymph % (Auto) 3.9 L Vernon % (Auto) 10.0 H Eos % (Auto) 2.9 Baso % (Auto) 0.2 Lymph # (Auto) 0.4 L Vernon # (Auto) 1.0 H Eos # (Auto) 0.3 Baso # (Auto) 0.02 Absolute Neuts (auto) 7.99 H Neutrophils % (Manual) Lymphocytes % (Manual) Monocytes % (Manual) Eosinophils % (Manual) Platelet Evaluation PT INR Sodium Potassium Chloride Carbon Dioxide Anion Gap BUN Creatinine Est GFR ( Amer) Est GFR (Non-Af Amer) POC Glucose (mg/dL) Random Glucose Calcium Phosphorus Magnesium Iron TIBC % Saturation Ferritin Total Bilirubin AST ALT Alkaline Phosphatase Total Protein Albumin Globulin Albumin/Globulin Ratio Hep Bs Antigen Radiology Impressions: Radiology Impressions Chest X-Ray 06/19/18 19:52 IMPRESSION: No active disease. Fingerstick Blood Sugar Results: 71 Critical Care Progress Note - Nutrition Nutrition: Nutrition Category Date Time Status NPO Diet [DIET] Diets 06/20/18 Breakfast Ordered Assessment/Plan - Assessment and Plan (Free Text) Assessment: Pt is a 67 yo male with a PMH of dilated cardiomyopathy, ESRD on HD, DM, HTN, arthritis, and anemia who presented to the ED complaining of dizziness and 1 episode of BRBPR prior to arrival. Plan: Neuro - AOx3 - continue to monitor mental status Cardio - dilated cardiomyopathy EF 20% with defibrillator - HTN - RRR, normotensive - trop negative x1 - amiodarone, lipitor, midodrine - Alcides consulted, Dr Watt Pulm - maintain O2>92% GI - GI bleed, history of AVM - Hgb 5.9 on arrival - Hgb currently 9.3, stable - pt has received 12 units pRBC, and 5 FFP - INR 1.21 - pantoprazole 40mg IVP daily - GI bleeding scan negative for signs of GI bleed - NPO - Colonoscopy 06/17/18, after dialysis and nulytely, no bleeding site could be identified - Meckle's scan today - GI consulted, Dr Wynn - Surgery consulted, Dr Winter Renal/ - ESRD on HD, MWF - continue to monitor electrolytes - BUN 17, Cr 4.4 - flomax, renagel - Nephro consulted, Dr Young ID - no leukocytosis Heme - Anemia of chronic disease - pt reports daily ASA use, hold at this time - ferrous sulfate Endocrine - DM - accuchecks Spoke with Jammie [phone] 06/18/18. Discussed 's transfusions, colonoscopy and the status of her . Dispo: pt to be transferred to [facility] Pt seen, examined, assessment and plan discussed with Dr Levar Zavala PGY1 - Date & Time Date: 06/21/18 Time: 07:11 <Levar Gayle - Last Filed: 06/21/18 16:46> CCU Objective - Vital Signs / Intake & Output Vital Signs (Last 4 hours): Vital Signs Pulse Resp BP 06/21/18 15:30 83 150/58 L 06/21/18 15:15 89 53 H 122/74 06/21/18 15:00 80 14 137/78 06/21/18 14:45 79 16 132/74 06/21/18 14:30 74 16 124/62 06/21/18 14:15 80 17 133/69 06/21/18 14:00 77 15 133/72 06/21/18 13:45 80 22 126/72 06/21/18 13:30 75 18 115/60 06/21/18 13:00 75 Intake and Output (Last 8hrs): Intake & Output 06/21/18 06/21/18 06/21/18 06:59 14:59 22:59 Intake Total 100 Output Total 0 Balance 100 Intake: Other 100 Output: Urine 0 Straight 0 Other: # Bowel Movements 1 - Medications Active Medications: Active Medications Generic Name Dose Route Start Last Admin Trade Name Freq PRN Reason Stop Dose Admin Acetaminophen 650 mg 06/18/18 20:52 06/18/18 21:10 Tylenol 325mg Tab PO 650 mg Q6H PRN Administration Pain, moderate (4-7) Amiodarone HCl 200 mg 06/16/18 10:00 06/21/18 09:20 Cordarone PO 200 mg DAILY JAVIER Administration Atorvastatin Calcium 40 mg 06/15/18 17:00 06/20/18 18:00 Lipitor PO 40 mg DIN JAVIER Administration Meropenem 250 mg/ Sodium 100 mls @ 100 mls/hr 06/19/18 22:00 06/21/18 11:15 Chloride IVPB 06/26/18 22:01 100 mls/hr Q12H JAVIER Administration Protocol Midodrine 5 mg 06/16/18 12:00 06/21/18 12:39 Proamatine PO 5 mg 0800,1200,1600 JAVIER Administration Pantoprazole Sodium 40 mg 06/16/18 10:00 06/21/18 09:22 Protonix Inj IVP 40 mg DAILY JAVIER Administration Sevelamer HCl 800 mg 06/16/18 09:43 06/21/18 09:22 Renagel PO 800 mg BID JAVIER Administration Tamsulosin HCl 0.4 mg 06/16/18 10:00 06/21/18 09:21 Flomax PO 0.4 mg DAILY JAVIER Administration Vitamin B Complex/Vit C/Folic Acid 1 tab 06/16/18 10:00 06/21/18 09:21 Nephro-Tyson PO 1 tab DAILY JAVIER Administration - Patient Studies Lab Studies: Microbiology Studies 06/19/18 15:00 Urine Culture - Final Urine Random Escherichia Coli 06/19/18 22:30 Blood Culture - Preliminary Blood NO GROWTH AFTER 24 HOURS 06/19/18 22:00 Blood Culture - Preliminary Blood NO GROWTH AFTER 24 HOURS Lab Studies 06/21/18 06/21/18 06/21/18 Range/Units 11:31 08:25 05:20 WBC (4.5-11.0) 10^3/uL RBC (3.5-6.1) 10^6/uL Hgb (14.0-18.0) g/dL Hct (42.0-52.0) % MCV (80.0-105.0) fl MCH (25.0-35.0) pg MCHC (31.0-37.0) g/dl RDW (11.5-14.5) % Plt Count (120.0-450.0) 10^3/uL MPV (7.0-11.0) fl Neut % (Auto) (50.0-68.0) % Lymph % (Auto) (22.0-35.0) % Vernon % (Auto) (1.0-6.0) % Eos % (Auto) (1.5-5.0) % Baso % (Auto) (0.0-3.0) % Lymph # (Auto) (1.2-3.4) Vernon # (Auto) (0.1-0.6) Eos # (Auto) (0.0-0.7) Baso # (Auto) (0.0-2.0) K/mm3 Absolute Neuts (auto) (1.4-6.5) Sodium (132-148) mmol/L Potassium (3.6-5.0) mmol/L Chloride (98-107) mmol/L Carbon Dioxide (21-33) mmol/L Anion Gap (10-20) BUN (7-21) mg/dL Creatinine (0.8-1.5) mg/dl Est GFR ( Amer) Est GFR (Non-Af Amer) POC Glucose (mg/dL) 92 58 L (65-110) mg/dL Random Glucose (70-110) mg/dL Calcium (8.4-10.5) mg/dL Phosphorus (2.5-4.5) mg/dL Magnesium (1.7-2.2) mg/dL Ferritin ng/mL Total Bilirubin (0.2-1.3) mg/dL Direct Bilirubin (0.0-0.4) mg/dL AST (17-59) U/L ALT (7-56) U/L Alkaline Phosphatase (38-126) U/L Total Protein (5.8-8.3) g/dL Albumin (3.0-4.8) g/dL Globulin gm/dL Albumin/Globulin Ratio (1.1-1.8) 25-OH Vitamin D Total 21.4 L (30.0-100.0) NG/ML PTH Intact Whole Molec (14-64) pg/mL Hep Bs Antigen (NEGATIVE) 06/21/18 06/21/18 06/20/18 Range/Units 05:20 05:20 21:49 WBC 9.6 (4.5-11.0) 10^3/uL RBC 3.13 L (3.5-6.1) 10^6/uL Hgb 9.3 L (14.0-18.0) g/dL Hct 28.6 L (42.0-52.0) % MCV 91.4 (80.0-105.0) fl MCH 29.7 (25.0-35.0) pg MCHC 32.5 (31.0-37.0) g/dl RDW 15.8 H (11.5-14.5) % Plt Count 154 (120.0-450.0) 10^3/uL MPV 9.1 (7.0-11.0) fl Neut % (Auto) 83.0 H (50.0-68.0) % Lymph % (Auto) 3.9 L (22.0-35.0) % Vernon % (Auto) 10.0 H (1.0-6.0) % Eos % (Auto) 2.9 (1.5-5.0) % Baso % (Auto) 0.2 (0.0-3.0) % Lymph # (Auto) 0.4 L (1.2-3.4) Vernon # (Auto) 1.0 H (0.1-0.6) Eos # (Auto) 0.3 (0.0-0.7) Baso # (Auto) 0.02 (0.0-2.0) K/mm3 Absolute Neuts (auto) 7.99 H (1.4-6.5) Sodium 138 (132-148) mmol/L Potassium 3.8 (3.6-5.0) mmol/L Chloride 103 (98-107) mmol/L Carbon Dioxide 26 (21-33) mmol/L Anion Gap 13 (10-20) BUN 17 (7-21) mg/dL Creatinine 4.4 H (0.8-1.5) mg/dl Est GFR ( Amer) 16 Est GFR (Non-Af Amer) 14 POC Glucose (mg/dL) 75 (65-110) mg/dL Random Glucose 62 L (70-110) mg/dL Calcium 8.0 L (8.4-10.5) mg/dL Phosphorus 4.4 (2.5-4.5) mg/dL Magnesium 2.0 (1.7-2.2) mg/dL Ferritin ng/mL Total Bilirubin 0.8 (0.2-1.3) mg/dL Direct Bilirubin 0.7 H (0.0-0.4) mg/dL AST 32 (17-59) U/L ALT 24 (7-56) U/L Alkaline Phosphatase 94 (38-126) U/L Total Protein 5.9 (5.8-8.3) g/dL Albumin 2.7 L (3.0-4.8) g/dL Globulin 3.2 gm/dL Albumin/Globulin Ratio 0.8 L (1.1-1.8) 25-OH Vitamin D Total (30.0-100.0) NG/ML PTH Intact Whole Molec (14-64) pg/mL Hep Bs Antigen (NEGATIVE) 06/20/18 06/20/18 Range/Units 11:40 11:40 WBC (4.5-11.0) 10^3/uL RBC (3.5-6.1) 10^6/uL Hgb (14.0-18.0) g/dL Hct (42.0-52.0) % MCV (80.0-105.0) fl MCH (25.0-35.0) pg MCHC (31.0-37.0) g/dl RDW (11.5-14.5) % Plt Count (120.0-450.0) 10^3/uL MPV (7.0-11.0) fl Neut % (Auto) (50.0-68.0) % Lymph % (Auto) (22.0-35.0) % Vernon % (Auto) (1.0-6.0) % Eos % (Auto) (1.5-5.0) % Baso % (Auto) (0.0-3.0) % Lymph # (Auto) (1.2-3.4) Vernon # (Auto) (0.1-0.6) Eos # (Auto) (0.0-0.7) Baso # (Auto) (0.0-2.0) K/mm3 Absolute Neuts (auto) (1.4-6.5) Sodium (132-148) mmol/L Potassium (3.6-5.0) mmol/L Chloride (98-107) mmol/L Carbon Dioxide (21-33) mmol/L Anion Gap (10-20) BUN (7-21) mg/dL Creatinine (0.8-1.5) mg/dl Est GFR ( Amer) Est GFR (Non-Af Amer) POC Glucose (mg/dL) (65-110) mg/dL Random Glucose (70-110) mg/dL Calcium (8.4-10.5) mg/dL Phosphorus (2.5-4.5) mg/dL Magnesium (1.7-2.2) mg/dL Ferritin 434.0 ng/mL Total Bilirubin (0.2-1.3) mg/dL Direct Bilirubin (0.0-0.4) mg/dL AST (17-59) U/L ALT (7-56) U/L Alkaline Phosphatase (38-126) U/L Total Protein (5.8-8.3) g/dL Albumin (3.0-4.8) g/dL Globulin gm/dL Albumin/Globulin Ratio (1.1-1.8) 25-OH Vitamin D Total (30.0-100.0) NG/ML PTH Intact Whole Molec 104 H (14-64) pg/mL Hep Bs Antigen Negative (NEGATIVE) Laboratory Results - last 24 hr 06/20/18 06/20/18 06/20/18 11:40 11:40 21:49 WBC RBC Hgb Hct MCV MCH MCHC RDW Plt Count MPV Neut % (Auto) Lymph % (Auto) Vernon % (Auto) Eos % (Auto) Baso % (Auto) Lymph # (Auto) Vernon # (Auto) Eos # (Auto) Baso # (Auto) Absolute Neuts (auto) Sodium Potassium Chloride Carbon Dioxide Anion Gap BUN Creatinine Est GFR ( Amer) Est GFR (Non-Af Amer) POC Glucose (mg/dL) 75 Random Glucose Calcium Phosphorus Magnesium Ferritin 434.0 Total Bilirubin Direct Bilirubin AST ALT Alkaline Phosphatase Total Protein Albumin Globulin Albumin/Globulin Ratio 25-OH Vitamin D Total PTH Intact Whole Molec 104 H Hep Bs Antigen Negative 0406/21/18 06/21/18 05:20 05:20 05:20 WBC 9.6 RBC 3.13 L Hgb 9.3 L Hct 28.6 L MCV 91.4 MCH 29.7 MCHC 32.5 RDW 15.8 H Plt Count 154 MPV 9.1 Neut % (Auto) 83.0 H Lymph % (Auto) 3.9 L Vernon % (Auto) 10.0 H Eos % (Auto) 2.9 Baso % (Auto) 0.2 Lymph # (Auto) 0.4 L Vernon # (Auto) 1.0 H Eos # (Auto) 0.3 Baso # (Auto) 0.02 Absolute Neuts (auto) 7.99 H Sodium 138 Potassium 3.8 Chloride 103 Carbon Dioxide 26 Anion Gap 13 BUN 17 Creatinine 4.4 H Est GFR ( Amer) 16 Est GFR (Non-Af Amer) 14 POC Glucose (mg/dL) Random Glucose 62 L Calcium 8.0 L Phosphorus 4.4 Magnesium 2.0 Ferritin Total Bilirubin 0.8 Direct Bilirubin 0.7 H AST 32 ALT 24 Alkaline Phosphatase 94 Total Protein 5.9 Albumin 2.7 L Globulin 3.2 Albumin/Globulin Ratio 0.8 L 25-OH Vitamin D Total 21.4 L PTH Intact Whole Molec Hep Bs Antigen 06/21/18 06/21/18 08:25 11:31 WBC RBC Hgb Hct MCV MCH MCHC RDW Plt Count MPV Neut % (Auto) Lymph % (Auto) Vernon % (Auto) Eos % (Auto) Baso % (Auto) Lymph # (Auto) Vernon # (Auto) Eos # (Auto) Baso # (Auto) Absolute Neuts (auto) Sodium Potassium Chloride Carbon Dioxide Anion Gap BUN Creatinine Est GFR ( Amer) Est GFR (Non-Af Amer) POC Glucose (mg/dL) 58 L 92 Random Glucose Calcium Phosphorus Magnesium Ferritin Total Bilirubin Direct Bilirubin AST ALT Alkaline Phosphatase Total Protein Albumin Globulin Albumin/Globulin Ratio 25-OH Vitamin D Total PTH Intact Whole Molec Hep Bs Antigen Critical Care Progress Note - Nutrition Nutrition: Nutrition Category Date Time Status NPO Diet [DIET] Diets 06/20/18 Breakfast Ordered Addendum Addendum: 06/21/18 16:45 MICU Attending Addendum Patient seen and examined with housestaff Agree with resident note above with the following addition/exceptions: 67m PMH of dilated cardiomyopathy, ESRD on HD, DM, HTN, arthritis, and anemia admitted 06/15 with massive GI bleed s/p ~10 units of PRBC and 4 FFP s/p colonoscopy x2, bleeding scan x 2, no definite identifying source ESRD on HD MWF CHF HB stable HB goal > 7 meckel scan negative Plan: CBC q 12h, transfuse if HB < 7 Surg/GI plan to transfer to [facility] today if needed, patient could be transferred to [facility] for transfer given hemodynamic stability HD MWF cont mortensen given urinary rentention/pus rest of care as mentioned in above resident note Levar Gayle MD MICU Attending
[2018-06-21 07:22] LABS: ALB/GLOB RATIO 0.8 (1.1-1.8); ALBUMIN 2.7 g/dL (3.0-4.8); BILIRUBIN,DIRECT 0.7 mg/dL (0.0-0.4)
--- NOTE | 2018-06-21 07:32 | CP.PCM.PN ---
<Dl Santos - Last Filed: 06/21/18 17:19> Subjective - Date & Time of Evaluation Date of Evaluation: 06/21/18 Time of Evaluation: 07:32 - Subjective Subjective: Dl Santos PGY2 GI Progress Note for Dr. Wynn Patient was seen and examined at bedside in ICU. He denies any BM's overnight. BP is stable off pressors. No acute overnight events. Objective - Vital Signs/Intake and Output Vital Signs (last 24 hours): Temp Pulse Resp BP Pulse Ox 98 F 78 18 138/68 100 06/21/18 04:00 06/21/18 06:30 06/21/18 06:30 06/21/18 06:30 06/21/18 06:30 Intake and Output: 06/21/18 06/21/18 06:59 18:59 Intake Total 100 Output Total 0 Balance 100 - Medications Medications: Current Medications Acetaminophen (Tylenol 325mg Tab) 650 mg PO Q6H PRN PRN Reason: Pain, moderate (4-7) Last Admin: 06/18/18 21:10 Dose: 650 mg Amiodarone HCl (Cordarone) 200 mg PO DAILY [facility] Last Admin: 06/20/18 10:30 Dose: 200 mg Atorvastatin Calcium (Lipitor) 40 mg PO DIN [facility] Last Admin: 06/20/18 18:00 Dose: 40 mg Meropenem 250 mg/ Sodium (Chloride) 100 mls @ 100 mls/hr IVPB Q12H [facility]; Protocol Stop: 06/26/18 22:01 Last Admin: 06/20/18 21:19 Dose: 100 mls/hr Midodrine (Proamatine) 5 mg PO 0800,1200,1600 [facility] Last Admin: 06/20/18 17:25 Dose: 5 mg Pantoprazole Sodium (Protonix Inj) 40 mg IVP DAILY [facility] Last Admin: 06/20/18 12:23 Dose: 40 mg Sevelamer HCl (Renagel) 800 mg PO BID [facility] Last Admin: 06/20/18 18:30 Dose: 800 mg Tamsulosin HCl (Flomax) 0.4 mg PO DAILY [facility] Last Admin: 06/20/18 10:00 Dose: 0.4 mg Vitamin B Complex/Vit C/Folic Acid (Nephro-Tyson) 1 tab PO DAILY [facility] Last Admin: 06/20/18 10:00 Dose: 1 tab - Labs Labs: 06/21/18 05:20 06/21/18 05:20 PT 13.7 SECONDS (9.4-12.5) H 06/20/18 08:15 INR 1.21 06/20/18 08:15 APTT 35.4 Seconds (26.9-38.3) 06/15/18 11:00 - Constitutional Appears: Non-toxic, No Acute Distress - Head Exam Head Exam: ATRAUMATIC, NORMAL INSPECTION - Eye Exam Eye Exam: EOMI, Normal appearance - ENT Exam ENT Exam: Mucous Membranes Moist, Normal Exam - Neck Exam Neck Exam: Full ROM - Respiratory Exam Respiratory Exam: NORMAL BREATHING PATTERN - Cardiovascular Exam Cardiovascular Exam: RRR, +S1, +S2, Murmur Additional comments: AICD - GI/Abdominal Exam GI & Abdominal Exam: Soft, Normal Bowel Sounds. absent: Distended, Tenderness - Extremities Exam Extremities Exam: Full ROM. absent: Pedal Edema Additional comments: LUE AVF +bruit +thrill - Back Exam Back Exam: Full ROM, NORMAL INSPECTION - Neurological Exam Neurological Exam: Alert, Awake - Skin Skin Exam: Normal Color, Warm Assessment and Plan - Assessment and Plan (Free Text) Assessment: 67 year old male with a PMH of dilated cardiomyopathy (EF 22%) s/p defibrillator, ESRD on HD MWF, DM2, Arthritis, HTN and Anemia of chronic disease/iron deficiency who is admitted with symptomatic anemia and bloody stool movement. GI is consulted for anemia, and bright red blood per rectum. s/p EGD and 2 colonoscopies which did not reveal site of active bleeding. H/H and BP stable now. Surgery following. Meckel's scan pending. Plan: - f/u Meckel's scan - monitor VS - monitor H/H - patient would benefit from capsule endoscopy to evaluate small intestine bleeding; will discuss with PMD and surgery regarding possibility of inpatient procedure - if not available inpatient, possibility of transferring patient to [facility] - discussed plan w/ ICU team - further recs per Dr. Wynn Case was reviewed and discussed with Dr. Wynn <Foreign Wynn V - Last Filed: 06/21/18 23:15> Objective - Vital Signs/Intake and Output Vital Signs (last 24 hours): Temp Pulse Resp BP Pulse Ox 98.6 F 81 53 H 150/58 L 99 06/21/18 20:00 06/21/18 18:00 06/21/18 15:15 06/21/18 15:30 06/21/18 11:00 Intake and Output: 06/21/18 06/22/18 18:59 06:59 Intake Total 100 Output Total 0 Balance 100 - Medications Medications: Current Medications Acetaminophen (Tylenol 325mg Tab) 650 mg PO Q6H PRN PRN Reason: Pain, moderate (4-7) Last Admin: 06/18/18 21:10 Dose: 650 mg Amiodarone HCl (Cordarone) 200 mg PO DAILY [facility] Last Admin: 06/21/18 09:20 Dose: 200 mg Atorvastatin Calcium (Lipitor) 40 mg PO DIN [facility] Last Admin: 06/21/18 17:12 Dose: 40 mg Meropenem 250 mg/ Sodium (Chloride) 100 mls @ 100 mls/hr IVPB Q12H [facility]; Protocol Stop: 06/26/18 22:01 Last Admin: 06/21/18 21:37 Dose: 100 mls/hr Midodrine (Proamatine) 5 mg PO 0800,1200,1600 [facility] Last Admin: 06/21/18 17:12 Dose: 5 mg Pantoprazole Sodium (Protonix Inj) 40 mg IVP DAILY [facility] Last Admin: 06/21/18 09:22 Dose: 40 mg Sevelamer HCl (Renagel) 800 mg PO BID [facility] Last Admin: 06/21/18 17:12 Dose: 800 mg Tamsulosin HCl (Flomax) 0.4 mg PO DAILY [facility] Last Admin: 06/21/18 09:21 Dose: 0.4 mg Vitamin B Complex/Vit C/Folic Acid (Nephro-Tyosn) 1 tab PO DAILY [facility] Last Admin: 06/21/18 09:21 Dose: 1 tab - Labs Labs: 06/21/18 05:20 06/21/18 05:20 PT 13.7 SECONDS (9.4-12.5) H 06/20/18 08:15 INR 1.21 06/20/18 08:15 APTT 35.4 Seconds (26.9-38.3) 06/15/18 11:00 Attending/Attestation - Attestation I have personally seen and examined this patient.: Yes I have fully participated in the care of the patient.: Yes I have reviewed all pertinent clinical information, including history, physical exam and plan: Yes Notes (Text): This patient was seen and evaluated along with the medical imaging director team earlier today. This is an addendum to the progress report dictated by the resident. No further episodes of bleeding. Hemodynamically stable. Recommend stable. Massive GI bleeding probable small bowel bleeding the differential diagnosis to include a diverticular and also AVM of colon. Colonoscopy and enteroscopy of te rminal ileum via colonoscopy revealed a blood in the ileum. Patient would benefit from balloon assisted enteroscopy and and a capsule endoscopy to further evaluate this massive small bowel bleeding. The concern is recurrence of the bleeding. Intraoperative enteroscopy is deferred no. I did discuss with the interventional index clerk at the [facility] in [place] Dr. Tomás Chowdhury. Patient has been accepted for transfer for further evaluation of this GI bleeding possible small bowel bleeding. Discussed with the patient at length. We will also discuss with the patient's at the request of the patient Thank you Dr. Thacker for allowing us to participate in the care of the patient. We will continue to closely follow-up his care and suggest further management based on the clinical course 06/21/18 23:13
[2018-06-21] MEDS ORDERED: Dextrose 50% SYRINGE Inj (50 ml) IVP ONE ×2 (08:30→08:40)
[2018-06-21] MEDS ORDERED: Dextrose 50% SYRINGE Inj (50 ml) ONE (08:32)
[2018-06-21] MEDS: Multivitamin Vitamin B Complex (Nephro-Vite) Tab PO SCH (09:21)
--- NOTE | 2018-06-21 14:42 | CP.PCM.PN ---
Subjective - Date & Time of Evaluation Date of Evaluation: 06/21/18 Time of Evaluation: 07:00 - Subjective Subjective: GENERAL SURGERY PROGRESS NOTE FOR DR. CEDENO Patient seen and examined at bedside in the ICU. Per nurse, he had a BM this morning and it was black and pasty. Denies nausea or vomiting. Pt had dialysis yesterday. Objective - Vital Signs/Intake and Output Vital Signs (last 24 hours): Temp Pulse Resp BP Pulse Ox 98.1 F 105 H 19 117/60 99 06/21/18 12:00 06/21/18 14:00 06/21/18 07:30 06/21/18 09:20 06/21/18 07:45 Intake and Output: 06/21/18 06/21/18 06:59 18:59 Intake Total 100 Output Total 0 Balance 100 - Medications Medications: Current Medications Acetaminophen (Tylenol 325mg Tab) 650 mg PO Q6H PRN PRN Reason: Pain, moderate (4-7) Last Admin: 06/18/18 21:10 Dose: 650 mg Amiodarone HCl (Cordarone) 200 mg PO DAILY [facility] Last Admin: 06/21/18 09:20 Dose: 200 mg Atorvastatin Calcium (Lipitor) 40 mg PO DIN [facility] Last Admin: 06/20/18 18:00 Dose: 40 mg Meropenem 250 mg/ Sodium (Chloride) 100 mls @ 100 mls/hr IVPB Q12H [facility]; Protocol Stop: 06/26/18 22:01 Last Admin: 06/21/18 11:15 Dose: 100 mls/hr Midodrine (Proamatine) 5 mg PO 0800,1200,1600 [facility] Last Admin: 06/21/18 12:39 Dose: 5 mg Pantoprazole Sodium (Protonix Inj) 40 mg IVP DAILY [facility] Last Admin: 06/21/18 09:22 Dose: 40 mg Sevelamer HCl (Renagel) 800 mg PO BID [facility] Last Admin: 06/21/18 09:22 Dose: 800 mg Tamsulosin HCl (Flomax) 0.4 mg PO DAILY [facility] Last Admin: 06/21/18 09:21 Dose: 0.4 mg Vitamin B Complex/Vit C/Folic Acid (Nephro-Tyson) 1 tab PO DAILY [facility] Last Admin: 06/21/18 09:21 Dose: 1 tab - Labs Labs: 06/21/18 05:20 06/21/18 05:20 PT 13.7 SECONDS (9.4-12.5) H 06/20/18 08:15 INR 1.21 06/20/18 08:15 APTT 35.4 Seconds (26.9-38.3) 06/15/18 11:00 - Constitutional Appears: Non-toxic, No Acute Distress - Head Exam Head Exam: ATRAUMATIC, NORMAL INSPECTION - Respiratory Exam Respiratory Exam: NORMAL BREATHING PATTERN. absent: Respiratory Distress - Cardiovascular Exam Cardiovascular Exam: +S1, +S2 - GI/Abdominal Exam GI & Abdominal Exam: Soft. absent: Distended, Firm, Rigid, Tenderness - Neurological Exam Neurological Exam: Alert, Awake, Oriented x3 - Psychiatric Exam Psychiatric exam: Normal Affect, Normal Mood - Skin Skin Exam: Dry, Normal Color Assessment and Plan - Assessment and Plan (Free Text) Assessment: 67yo M with GI bleed Plan: - Meckel scan negative - Possible transfer to [facility] - Surgical intervention if positive findings on enteroscopy Further care as per primary team Discussed plan with Dr. Moy Cardenas PGY-4
--- NOTE | 2018-06-21 15:18 | PN ---
DATE: 06/21/2018 SUBJECTIVE: The patient is without GI bleeding, without dark stools today. PHYSICAL EXAMINATION: VITAL SIGNS: Blood pressure 117/60, heart rate is in the 70s. Physical exam is unchanged. LABORATORY DATA: is 9.3 which is stable. BUN and creatinine are unchanged. IMPRESSION: 1. No active bleed today. 2. Anemia, which is stable. 3. Dilated cardiomyopathy. 4. Renal insufficiency. PLAN: Given these findings, currently there is no evidence for active bleed, the patient is hemodynamically stable at this time. Kamari Watt MD
--- NOTE | 2018-06-21 15:58 | CP.PCM.PN ---
<Quang Parker - Last Filed: 06/21/18 15:52> Subjective - Date & Time of Evaluation Date of Evaluation: 06/21/18 Time of Evaluation: 09:55 - Subjective Subjective: Quang Parker D.O. PGY-3, Internal Medicine, Infectious Disease Progress Note 67 year old male with a PMH of dilated cardiomyopathy s/p defibrillator, ESRD on HD M/W/F, DM, Arthritis, HTN and anemia of chronic disease/iron deficiency who is admitted with symptomatic anemia and bloody stool movement. Infectious disease consultation was requested for UTI. Patient was seen and examined at bedside. States no longer having suprapubic discomfort. No other acute complaints. Objective - Vital Signs/Intake and Output Vital Signs (last 24 hours): Temp Pulse Resp BP Pulse Ox 98.1 F 83 53 H 150/58 L 99 06/21/18 12:00 06/21/18 15:30 06/21/18 15:15 06/21/18 15:30 06/21/18 11:00 Intake and Output: 06/21/18 06/21/18 06:59 18:59 Intake Total 100 Output Total 0 Balance 100 - Medications Medications: Current Medications Acetaminophen (Tylenol 325mg Tab) 650 mg PO Q6H PRN PRN Reason: Pain, moderate (4-7) Last Admin: 06/18/18 21:10 Dose: 650 mg Amiodarone HCl (Cordarone) 200 mg PO DAILY [facility] Last Admin: 06/21/18 09:20 Dose: 200 mg Atorvastatin Calcium (Lipitor) 40 mg PO DIN [facility] Last Admin: 06/20/18 18:00 Dose: 40 mg Meropenem 250 mg/ Sodium (Chloride) 100 mls @ 100 mls/hr IVPB Q12H [facility]; Protocol Stop: 06/26/18 22:01 Last Admin: 06/21/18 11:15 Dose: 100 mls/hr Midodrine (Proamatine) 5 mg PO 0800,1200,1600 [facility] Last Admin: 06/21/18 12:39 Dose: 5 mg Pantoprazole Sodium (Protonix Inj) 40 mg IVP DAILY [facility] Last Admin: 06/21/18 09:22 Dose: 40 mg Sevelamer HCl (Renagel) 800 mg PO BID [facility] Last Admin: 06/21/18 09:22 Dose: 800 mg Tamsulosin HCl (Flomax) 0.4 mg PO DAILY [facility] Last Admin: 06/21/18 09:21 Dose: 0.4 mg Vitamin B Complex/Vit C/Folic Acid (Nephro-Tyson) 1 tab PO DAILY [facility] Last Admin: 06/21/18 09:21 Dose: 1 tab - Labs Labs: 06/21/18 05:20 06/21/18 05:20 PT 13.7 SECONDS (9.4-12.5) H 06/20/18 08:15 INR 1.21 06/20/18 08:15 APTT 35.4 Seconds (26.9-38.3) 06/15/18 11:00 - Constitutional Appears: Non-toxic, No Acute Distress - Head Exam Head Exam: ATRAUMATIC, NORMAL INSPECTION - Eye Exam Eye Exam: Normal appearance. absent: Scleral icterus - ENT Exam ENT Exam: Mucous Membranes Moist, Normal Exam - Neck Exam Neck exam: Positive for: Full Rom, Normal Inspection - Respiratory Exam Respiratory Exam: CTAB, no W/R/R - Cardiovascular Exam Cardiovascular Exam: RRR, +S1, +S2 - GI/Abdominal Exam GI & Abdominal Exam: Soft. absent: Distended, Tenderness - Extremities Exam Extremities exam: LUE AVF with palpable thrill - Neurological Exam Neurological exam: Alert, Oriented x3 - Skin Skin Exam: Normal Color, Warm Assessment and Plan - Assessment and Plan (Free Text) Assessment: 67 year old male with a PMH of dilated cardiomyopathy s/p defibrillator, ESRD on HD M/W/F, DM, Arthritis, HTN and anemia of chronic disease/iron deficiency who is admitted with symptomatic anemia and bloody stool movement. Infectious disease consultation was requested for UTI. Plan: ESBL E. Coli cystitis/urinary tract infection ESRD on HD M/W/F DM Arthritis HTN Anemia Dilated cardiomyopathy Afebrile No leukocytosis UCx show ESBL Continue meropenem day 3 Surgery and GI notes reviewed and appreciated We will follow with you Patient was seen and examined and case to be discussed with attending physician Thank you for the pleasure of participating in the care of this patient <Charlie Taylor - Last Filed: 06/21/18 18:10> Objective - Vital Signs/Intake and Output Vital Signs (last 24 hours): Temp Pulse Resp BP Pulse Ox 98.6 F 83 53 H 150/58 L 99 06/21/18 16:00 06/21/18 15:30 06/21/18 15:15 06/21/18 15:30 06/21/18 11:00 Intake and Output: 06/21/18 06/21/18 06:59 18:59 Intake Total 100 Output Total 0 Balance 100 - Medications Medications: Current Medications Acetaminophen (Tylenol 325mg Tab) 650 mg PO Q6H PRN PRN Reason: Pain, moderate (4-7) Last Admin: 06/18/18 21:10 Dose: 650 mg Amiodarone HCl (Cordarone) 200 mg PO DAILY [facility] Last Admin: 06/21/18 09:20 Dose: 200 mg Atorvastatin Calcium (Lipitor) 40 mg PO DIN [facility] Last Admin: 06/21/18 17:12 Dose: 40 mg Meropenem 250 mg/ Sodium (Chloride) 100 mls @ 100 mls/hr IVPB Q12H [facility]; Protocol Stop: 06/26/18 22:01 Last Admin: 06/21/18 11:15 Dose: 100 mls/hr Midodrine (Proamatine) 5 mg PO 0800,1200,1600 [facility] Last Admin: 06/21/18 17:12 Dose: 5 mg Pantoprazole Sodium (Protonix Inj) 40 mg IVP DAILY [facility] Last Admin: 06/21/18 09:22 Dose: 40 mg Sevelamer HCl (Renagel) 800 mg PO BID [facility] Last Admin: 06/21/18 17:12 Dose: 800 mg Tamsulosin HCl (Flomax) 0.4 mg PO DAILY [facility] Last Admin: 06/21/18 09:21 Dose: 0.4 mg Vitamin B Complex/Vit C/Folic Acid (Nephro-Tyson) 1 tab PO DAILY [facility] Last Admin: 06/21/18 09:21 Dose: 1 tab - Labs Labs: 06/21/18 05:20 06/21/18 05:20 PT 13.7 SECONDS (9.4-12.5) H 06/20/18 08:15 INR 1.21 06/20/18 08:15 APTT 35.4 Seconds (26.9-38.3) 06/15/18 11:00 Attending/Attestation - Attestation I have personally seen and examined this patient.: Yes I have fully participated in the care of the patient.: Yes I have reviewed all pertinent clinical information, including history, physical exam and plan: Yes
--- NOTE | 2018-06-21 20:40 | PN ---
DATE: 06/21/2018 SUBJECTIVE: The patient is currently seen downgraded to telemetry but still in CCU bed 1. He had an uneventful heparin-free dialysis treatment yesterday. 1.5 liters of fluid were removed. The patient apparently has had no further bleeding. He is maintaining a hemoglobin in the low to mid 9 range. He has received a total of 12 units of packed red blood cells. The patient came in with a hemoglobin of 5.9. MEDICATIONS: Medication list reviewed. The patient is currently on amiodarone, Flomax, Lipitor, meropenem, Nephro-Tyson, ProAmatine, Protonix, Renagel, and Tylenol p.r.n. OBJECTIVE: INTAKE/OUTPUT. Intake is 200+, output is 1500 ml with dialysis. VITAL SIGNS: Blood pressure is 117/60, pulse of 105, temperature 98.1 with a respiratory rate of 19. HEENT: Exam shows him to be normocephalic, atraumatic. Conjunctivae are pale. Sclerae are nonicteric. NECK: Supple. No neck vein distention. CHEST: Clear to auscultation and percussion. No rales, rhonchi or wheezing. Cardiovascular: Shows a regular rate and rhythm without audible murmurs, rubs or gallops. ABDOMEN: Soft. Bowel sounds normal. No rebound, guarding or masses. EXTREMITIES: Show no lower extremity cyanosis, clubbing or edema. He has a working AV fistula of his left upper extremity. Positive thrill. Positive bruit. LABORATORY DATA AND IMAGING STUDIES: CBC, white blood cell count 9.6, hemoglobin stable at 9.2 with a platelet count of 154,000. Coags showed PT of 13.7 with an INR 1.21. Chemistries from this morning showed normal electrolytes. BUN 17 with a creatinine of 4.4, this being the day post dialysis. Glucose levels are acceptable. Calcium is 8 with albumin of 2. Corrects to normal. Phosphorus is 4.4 with a magnesium of 2. Urinalysis from admission showed white blood cells and red blood cells. Microbiology, urine cultures are positive for E-coli. Blood cultures are negative at 24 hours. ASSESSMENT: 1. Severe life-threatening gastrointestinal bleed, perhaps coming from the small bowel. The patient is scheduled for transfer to [facility] for a capsule endoscopy to visualize the small bowel for any bleeding source. 2. Status post severe anemia. The patient has received a total of 12 units of packed red blood cells. Hemoglobin appears to be stable in the 9-10 range. 3. History of end-stage renal disease. The patient will continue Wednesday, Wednesday and Wednesday dialysis heparin free. 4. History of dilated cardiomyopathy, ejection fraction 25-30%. With an AICD. With mitral regurgitation, tricuspid regurgitation, pulmonary insufficiency. 5. History of [id number] diabetes mellitus. The patient is maintained on diet therapy alone. 6. Status post recent automatic implantable cardioverter defibrillator lead infection. 7. History of secondary hyperparathyroidism, currently stable on a renal diet and binder therapy. 8. Escherichia coli urinary tract infection being treated with antibiotic therapy. PLAN: 1. Agree with no heparin dialysis for the foreseeable future. 2. Agree with transfer to an institution where he could have visualization of his small bowel with a capsule camera for visualization of the small bowel. 3. Further management pending the identification of the source of the GI bleed. 4. Continue for right now PPI therapy. 5. Complete a course of antibiotics for his UTI. Chidi Ramirez MD
[2018-06-21] MEDS ORDERED: Dextrose 50% SYRINGE Inj (50 ml) IVP STA (22:10)
[2018-06-22 05:50] LABS: ALB/GLOB RATIO 0.8 (1.1-1.8); ALBUMIN 2.9 g/dL (3.0-4.8); BILIRUBIN,DIRECT 0.8 mg/dL (0.0-0.4); CALCIUM 8.3 mg/dL (8.4-10.5)
[2018-06-22 05:59] LABS: BASO # 0.03 K/mm3 (0.0-2.0); BASO % 0.3 % (0.0-3.0); EOS # 0.3 (0.0-0.7); EOS % 2.4 % (1.5-5.0); HEMOGLOBIN 10.1 g/dL (14.0-18.0); LYMPH # 0.4 (1.2-3.4); LYMPH % 3.4 % (22.0-35.0); MEAN CORPUSCULAR HEMOGLOBIN 30.1 pg (25.0-35.0); MEAN CORPUSCULAR HGB CONC 32.7 g/dl (31.0-37.0); MEAN PLATELET VOLUME 8.9 fl (7.0-11.0); MONO % 8.1 % (1.0-6.0); RBC 3.36 10^6/uL (3.5-6.1); RED CELL DISTRIBUTION WIDTH 15.7 % (11.5-14.5); WHITE BLOOD COUNT 11.8 10^3/uL (4.5-11.0)
[2018-06-22] MEDS ORDERED: Dextrose 50% SYRINGE Inj (50 ml) IVP ONE (07:58)
--- NOTE | 2018-06-22 09:15 | CP.PCM.PN ---
<Dl Santos - Last Filed: 06/22/18 16:22> Subjective - Date & Time of Evaluation Date of Evaluation: 06/22/18 Time of Evaluation: 09:14 - Subjective Subjective: Dl Santos PGY2 GI Progress Note for Dr. Wynn Patient was seen and examined at bedside in ICU. No BM's overnight and no further episodes of rectal bleeding. H/H and BP are stable. Patient is scheduled for transport to [facility] but plans are delayed. Objective - Vital Signs/Intake and Output Vital Signs (last 24 hours): Temp Pulse Resp BP Pulse Ox 99.2 F 89 21 111/53 L 99 06/22/18 04:00 06/22/18 07:30 06/22/18 07:30 06/22/18 07:30 06/21/18 11:00 Intake and Output: 06/22/18 06/22/18 06:59 18:59 Intake Total 100 Output Total 30 Balance 70 - Medications Medications: Current Medications Acetaminophen (Tylenol 325mg Tab) 650 mg PO Q6H PRN PRN Reason: Pain, moderate (4-7) Last Admin: 06/18/18 21:10 Dose: 650 mg Amiodarone HCl (Cordarone) 200 mg PO DAILY [facility] Last Admin: 06/21/18 09:20 Dose: 200 mg Atorvastatin Calcium (Lipitor) 40 mg PO DIN [facility] Last Admin: 06/21/18 17:12 Dose: 40 mg Meropenem 250 mg/ Sodium (Chloride) 100 mls @ 100 mls/hr IVPB Q12H [facility]; Protocol Stop: 06/26/18 22:01 Last Admin: 06/21/18 21:37 Dose: 100 mls/hr Midodrine (Proamatine) 5 mg PO 0800,1200,1600 [facility] Last Admin: 06/22/18 07:45 Dose: 5 mg Pantoprazole Sodium (Protonix Inj) 40 mg IVP DAILY [facility] Last Admin: 06/21/18 09:22 Dose: 40 mg Sevelamer HCl (Renagel) 800 mg PO BID [facility] Last Admin: 06/21/18 17:12 Dose: 800 mg Tamsulosin HCl (Flomax) 0.4 mg PO DAILY [facility] Last Admin: 06/21/18 09:21 Dose: 0.4 mg Vitamin B Complex/Vit C/Folic Acid (Nephro-Tyson) 1 tab PO DAILY [facility] Last Admin: 06/21/18 09:21 Dose: 1 tab - Labs Labs: 06/22/18 05:10 06/22/18 05:10 PT 13.7 SECONDS (9.4-12.5) H 06/20/18 08:15 INR 1.21 06/20/18 08:15 APTT 35.4 Seconds (26.9-38.3) 06/15/18 11:00 - Constitutional Appears: Non-toxic, No Acute Distress - Head Exam Head Exam: ATRAUMATIC, NORMAL INSPECTION - Eye Exam Eye Exam: EOMI, Normal appearance - ENT Exam ENT Exam: Mucous Membranes Moist, Normal Exam - Neck Exam Neck Exam: Full ROM - Respiratory Exam Respiratory Exam: NORMAL BREATHING PATTERN - Cardiovascular Exam Cardiovascular Exam: RRR, +S1, +S2, Murmur Additional comments: AICD - GI/Abdominal Exam GI & Abdominal Exam: Soft, Normal Bowel Sounds. absent: Distended, Tenderness - Extremities Exam Extremities Exam: Full ROM. absent: Pedal Edema Additional comments: LUE AVF +bruit +thrill - Back Exam Back Exam: Full ROM, NORMAL INSPECTION - Neurological Exam Neurological Exam: Alert, Awake - Skin Skin Exam: Normal Color, Warm Assessment and Plan - Assessment and Plan (Free Text) Assessment: 67 year old male with a PMH of dilated cardiomyopathy (EF 22%) s/p defibrillator, ESRD on HD MWF, DM2, Arthritis, HTN and Anemia of chronic disease/iron deficiency who is admitted with symptomatic anemia and bloody stool movement. GI is consulted for anemia, and bright red blood per rectum. s/p EGD and 2 colonoscopies which did not reveal site of active bleeding. H/H and BP stable now. Surgery team is following. Meckel's scan done but reading is pending. Downgraded from ICU to telemetry monitoring Plan: - f/u Meckel's scan read - monitor VS - monitor H/H - to transfer to [facility] for evaluation of small intestine bleeding; we do not have capacity for such intervention at [facility] - further recs per Dr. Wynn Case was reviewed and discussed with Dr. Wynn <Foreign Wynn V - Last Filed: 06/22/18 22:13> Objective - Vital Signs/Intake and Output Vital Signs (last 24 hours): Temp Pulse Resp BP Pulse Ox 99.2 F 81 14 131/68 100 06/22/18 04:00 06/22/18 15:31 06/22/18 11:30 06/22/18 12:00 06/22/18 11:30 Intake and Output: 06/22/18 06/23/18 18:59 06:59 Intake Total 510 Output Total 2000 Balance -1490 - Medications Medications: Current Medications Acetaminophen (Tylenol 325mg Tab) 650 mg PO Q6H PRN PRN Reason: Pain, moderate (4-7) Last Admin: 06/18/18 21:10 Dose: 650 mg Amiodarone HCl (Cordarone) 200 mg PO DAILY [facility] Last Admin: 06/22/18 12:00 Dose: 200 mg Atorvastatin Calcium (Lipitor) 40 mg PO DIN [facility] Last Admin: 06/22/18 16:04 Dose: 40 mg Meropenem 250 mg/ Sodium (Chloride) 100 mls @ 100 mls/hr IVPB Q12H [facility]; Protocol Stop: 06/26/18 22:01 Last Admin: 06/22/18 22:08 Dose: 100 mls/hr Insulin Human Regular (Humulin R Low) 0 units SC ACHS [facility]; Protocol Last Admin: 06/22/18 22:08 Dose: Not Given Midodrine (Proamatine) 5 mg PO 0800,1200,1600 [facility] Last Admin: 06/22/18 16:04 Dose: 5 mg Pantoprazole Sodium (Protonix Inj) 40 mg IVP DAILY [facility] Last Admin: 06/22/18 11:58 Dose: 40 mg Sevelamer HCl (Renagel) 800 mg PO BID [facility] Last Admin: 06/22/18 17:27 Dose: 800 mg Tamsulosin HCl (Flomax) 0.4 mg PO DAILY [facility] Last Admin: 06/22/18 11:59 Dose: 0.4 mg Vitamin B Complex/Vit C/Folic Acid (Nephro-Tyson) 1 tab PO DAILY [facility] Last Admin: 06/22/18 11:59 Dose: 1 tab - Labs Labs: 06/22/18 05:10 06/22/18 05:10 PT 13.7 SECONDS (9.4-12.5) H 06/20/18 08:15 INR 1.21 06/20/18 08:15 APTT 35.4 Seconds (26.9-38.3) 06/15/18 11:00 Attending/Attestation - Attestation I have personally seen and examined this patient.: Yes I have fully participated in the care of the patient.: Yes I have reviewed all pertinent clinical information, including history, physical exam and plan: Yes Notes (Text): This is an addendum to the GI progress report dictated by the medical imaging technician. This patient was seen and evaluated here earlier today. Discussed with ICU staff. No further episodes of bleeding. Hemoglobin remained stable. Meckel scan negative Patient has ESBL UTI on isolation. Awaiting for bed availability in [facility]. This patient had a massive GI bleeding probably small bowel bleeding to be considered other differential diagnosis included colonic AVMs and diverticulosis. The patient would benefit from pulmonary assisted in tract enteroscopy for therapeutic intervention and also capsule endoscopy if needed. This combination evaluation is relatively less risky than intraoperative enteroscopy in a patient with multiple comorbidities. In view of this patient with no active bleeding at this present time would avoid intraoperative enteroscopy. Continue the antibiotics as per ID Clear liquid diet 06/22/18 22:11
--- NOTE | 2018-06-22 11:19 | NM ---
Date of service: 06/21/2018 PROCEDURE: Meckels Scan History GI bleed unknown source COMPARISON: 06/17/2018 CT abdomen and pelvis. 06/15/2018 GI bleeding scan. TECHNIQUE: 10.8 mCi technetium 99 M pertechnetate at the sprayer hand intravenously. Imaging performed sequentially at minute intervals FINDINGS: Expected uptake in the stomach identified. No focal abnormalities to suggest a Meckel's diverticulum. IMPRESSION: Negative study for negative Meckel's scan. Specifically no evidence of Meckel's diverticulum or other acute/significant pathologic process.
--- NOTE | 2018-06-22 11:58 | CP.PCM.PN ---
Subjective - Date & Time of Evaluation Date of Evaluation: 06/22/18 Time of Evaluation: 11:55 - Subjective Subjective: General surgery progress note for Dr. 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 Denies abdominal pain, N, V or other complaints. Pt asking about plan of care over at [facility]. Objective - Vital Signs/Intake and Output Vital Signs (last 24 hours): Temp Pulse Resp BP Pulse Ox 99.2 F 87 14 117/68 100 06/22/18 04:00 06/22/18 11:30 06/22/18 11:30 06/22/18 11:30 06/22/18 11:30 Intake and Output: 06/22/18 06/22/18 06:59 18:59 Intake Total 100 Output Total 30 Balance 70 - Medications Medications: Current Medications Acetaminophen (Tylenol 325mg Tab) 650 mg PO Q6H PRN PRN Reason: Pain, moderate (4-7) Last Admin: 06/18/18 21:10 Dose: 650 mg Amiodarone HCl (Cordarone) 200 mg PO DAILY [facility] Last Admin: 06/21/18 09:20 Dose: 200 mg Atorvastatin Calcium (Lipitor) 40 mg PO DIN [facility] Last Admin: 06/21/18 17:12 Dose: 40 mg Meropenem 250 mg/ Sodium (Chloride) 100 mls @ 100 mls/hr IVPB Q12H [facility]; Protocol Stop: 06/26/18 22:01 Last Admin: 06/21/18 21:37 Dose: 100 mls/hr Midodrine (Proamatine) 5 mg PO 0800,1200,1600 [facility] Last Admin: 06/22/18 07:45 Dose: 5 mg Pantoprazole Sodium (Protonix Inj) 40 mg IVP DAILY [facility] Last Admin: 06/21/18 09:22 Dose: 40 mg Sevelamer HCl (Renagel) 800 mg PO BID [facility] Last Admin: 06/21/18 17:12 Dose: 800 mg Tamsulosin HCl (Flomax) 0.4 mg PO DAILY [facility] Last Admin: 06/21/18 09:21 Dose: 0.4 mg Vitamin B Complex/Vit C/Folic Acid (Nephro-Tyson) 1 tab PO DAILY [facility] Last Admin: 06/21/18 09:21 Dose: 1 tab - Labs Labs: 06/22/18 05:10 06/22/18 05:10 PT 13.7 SECONDS (9.4-12.5) H 06/20/18 08:15 INR 1.21 06/20/18 08:15 APTT 35.4 Seconds (26.9-38.3) 06/15/18 11:00 - Constitutional Appears: Non-toxic, No Acute Distress - Head Exam Head Exam: ATRAUMATIC, NORMAL INSPECTION, NORMOCEPHALIC - Eye Exam Eye Exam: EOMI, Normal appearance - ENT Exam ENT Exam: Mucous Membranes Moist, Normal Exam - Neck Exam Neck Exam: Full ROM, Normal Inspection - Respiratory Exam Respiratory Exam: NORMAL BREATHING PATTERN. absent: Respiratory Distress - Cardiovascular Exam Cardiovascular Exam: REGULAR RHYTHM, +S1, +S2 - GI/Abdominal Exam GI & Abdominal Exam: Soft. absent: Distended, Firm, Guarding, Rigid, Tenderness - Extremities Exam Extremities Exam: Normal Inspection - Neurological Exam Neurological Exam: Alert, Awake, CN II-XII Intact, Oriented x3 - Psychiatric Exam Psychiatric exam: Normal Affect, Normal Mood - Skin Skin Exam: Dry, Intact, Normal Color, Warm Assessment and Plan - Assessment and Plan (Free Text) Assessment: 67M w/GI bleed- no more bleeding Plan: plan for transfer to [facility] for capsule enteroscopy No surgical intervention at this time Will DW Dr. Moy Christian, PGY-2
[2018-06-22] MEDS: Multivitamin Vitamin B Complex (Nephro-Vite) Tab PO SCH (11:59)
--- NOTE | 2018-06-22 14:06 | PN ---
DATE: 06/22/2018 SUBJECTIVE: The patient is seen in CCU bed one. The patient is comfortable lying in bed. The patient denies any rectal bleeding. There was no nurse's documentation of any rectal bleeding. The patient is awaiting for transfer to [facility] as per the Gastroenterology recommendations. PHYSICAL EXAMINATION: VITAL SIGNS: T-max 99.2. Telemetry shows sinus rhythm, heart rate 89, blood pressure 111/53, respiration 14-18, O2 sat 95-100%. HEENT: Examination normocephalic, atraumatic. HEENT examination shows pinkish pale conjunctivae. Anicteric sclerae. No oropharyngeal lesion, no neck rigidity. CHEST: Kyphosis. Positive left upper chest AICD noted. LUNGS: Examination shows questionable decreased breath sound at the bases. No audible crackle, rales or wheezing. CARDIOVASCULAR: S1, S2, regular rhythm. Positive systolic murmur left sternal border, right second intercostal space, left second intercostal space. ABDOMEN: Soft. Positive bowel sound. No palpable hepatosplenomegaly. GENITALIA: Male. RECTAL: Examination deferred. EXTREMITIES: Positive left upper extremity AV fistula, positive thrill. Upper extremity shows positive contractures of the upper extremity and both hands. Lower extremity shows no pitting edema. No calf tenderness, no Homans' sign. NEUROLOGIC: The patient is alert, awake, responsive, is able to move upper and lower extremity without assistance. Gait examination is not tested. DIAGNOSTICS: WBC 11.8, hemoglobin/hematocrit 10.1/31, platelets 190. Granulocytes 86% segs. Sodium 138, potassium 4, chloride 104, CO2 of 24, BUN 23, creatinine 6.5, glucose 70, calcium 8.3, phosphorus 5.3, magnesium 2. Vitamin D 21.4, PTH 104. Urine culture shows Escherichia coli urinary tract infection, Meckel's nuclear medicine scan preliminary negative, official report pending. IMPRESSION AND PLAN: 1. Massive lower gastrointestinal bleeding with bright red blood per rectum. 2. Acute blood loss anemia with hemoglobin dropping to less than 6 g. 3. Status post 12 units packed red blood cell transfusion, fresh frozen plasma transfusion, and platelet transfusion. 4. Sigmoid and descending colon diverticulosis. 5. Bright red blood in the colon and cecum with no active bleeding. 6. Internal hemorrhoid. 7. Status post esophagogastroduodenoscopy and colonoscopy. 8. Leukocytosis. 9. Low grade fever. 10. Status post automatic implantable cardioverter-defibrillator implant. 11. Cardiomyopathy. 12. Normocytic anemia. 13. Granulocytosis. 14. End-stage renal disease, hemodialysis dependent. 15. Secondary hyperparathyroidism with hyperphosphatemia and elevated PTH level of 104. 16. Rheumatoid arthritis of both hands. 17. Hypovitaminosis D. 18. Escherichia coli urinary tract infection. 19. Possible small bowel arteriovenous malformation bleeding. 20. History of recurrent gastrointestinal bleeding and recurrent anemia and refractory anemia. 21. Transfusion dependent anemia with recurrent anemia. PLAN: At this time, the patient is to be continued on all the medications as per the MAR with consultations including Gastroenterology, Cardiology, Infectious Disease, Nephrology. The patient's overall prognosis is guarded to poor. The patient is awaiting transfer to [facility] to Interventional Gastroenterology services for evaluation of the patient's gastrointestinal bleeding and to evaluate the source for gastrointestinal bleeding. The patient is aware of the transfer and is agreeable. Time spent is more than 35 minutes. Geoffrey Thacker MD
--- NOTE | 2018-06-22 14:18 | CP.PCM.PN ---
<Quang Parker - Last Filed: 06/22/18 14:15> Subjective - Date & Time of Evaluation Date of Evaluation: 06/22/18 Time of Evaluation: 09:10 - Subjective Subjective: Quang Parker D.O. PGY-3, Internal Medicine, Infectious Disease Progress Note 67 year old male with a PMH of dilated cardiomyopathy s/p defibrillator, ESRD on HD M/W/F, DM, Arthritis, HTN and anemia of chronic disease/iron deficiency who is admitted with symptomatic anemia and bloody stool movement. Infectious disease consultation was requested for UTI. Patient was seen and examined at bedside. No acute complaints. Asking about [facility] transfer for capsule endoscopy. Objective - Vital Signs/Intake and Output Vital Signs (last 24 hours): Temp Pulse Resp BP Pulse Ox 99.2 F 104 H 14 131/68 100 06/22/18 04:00 06/22/18 12:00 06/22/18 11:30 06/22/18 12:00 06/22/18 11:30 Intake and Output: 06/22/18 06/22/18 06:59 18:59 Intake Total 100 Output Total 30 Balance 70 - Medications Medications: Current Medications Acetaminophen (Tylenol 325mg Tab) 650 mg PO Q6H PRN PRN Reason: Pain, moderate (4-7) Last Admin: 06/18/18 21:10 Dose: 650 mg Amiodarone HCl (Cordarone) 200 mg PO DAILY [facility] Last Admin: 06/22/18 12:00 Dose: 200 mg Atorvastatin Calcium (Lipitor) 40 mg PO DIN [facility] Last Admin: 06/21/18 17:12 Dose: 40 mg Meropenem 250 mg/ Sodium (Chloride) 100 mls @ 100 mls/hr IVPB Q12H [facility]; Protocol Stop: 06/26/18 22:01 Last Admin: 06/22/18 13:56 Dose: 100 mls/hr Midodrine (Proamatine) 5 mg PO 0800,1200,1600 [facility] Last Admin: 06/22/18 11:59 Dose: 5 mg Pantoprazole Sodium (Protonix Inj) 40 mg IVP DAILY [facility] Last Admin: 06/22/18 11:58 Dose: 40 mg Sevelamer HCl (Renagel) 800 mg PO BID [facility] Last Admin: 06/22/18 11:59 Dose: 800 mg Tamsulosin HCl (Flomax) 0.4 mg PO DAILY [facility] Last Admin: 06/22/18 11:59 Dose: 0.4 mg Vitamin B Complex/Vit C/Folic Acid (Nephro-Tyson) 1 tab PO DAILY [facility] Last Admin: 06/22/18 11:59 Dose: 1 tab - Labs Labs: 06/22/18 05:10 06/22/18 05:10 PT 13.7 SECONDS (9.4-12.5) H 06/20/18 08:15 INR 1.21 06/20/18 08:15 APTT 35.4 Seconds (26.9-38.3) 06/15/18 11:00 - Constitutional Appears: Non-toxic, No Acute Distress - Head Exam Head Exam: ATRAUMATIC, NORMAL INSPECTION - Eye Exam Eye Exam: Normal appearance. absent: Scleral icterus - ENT Exam ENT Exam: Mucous Membranes Moist, Normal Exam - Neck Exam Neck exam: Positive for: Full Rom, Normal Inspection - Respiratory Exam Respiratory Exam: CTAB, no W/R/R - Cardiovascular Exam Cardiovascular Exam: RRR, +S1, +S2 - GI/Abdominal Exam GI & Abdominal Exam: Soft. absent: Distended, Tenderness - Extremities Exam Extremities exam: LUE AVF with palpable thrill - Neurological Exam Neurological exam: Alert, Oriented x4 - Skin Skin Exam: Normal Color, Warm Assessment and Plan - Assessment and Plan (Free Text) Assessment: 67 year old male with a PMH of dilated cardiomyopathy s/p defibrillator, ESRD on HD M/W/F, DM, Arthritis, HTN and anemia of chronic disease/iron deficiency who is admitted with symptomatic anemia and bloody stool movement. Infectious disease consultation was requested for UTI. Plan: ESBL E. Coli cystitis/urinary tract infection Worsening anemia ESRD on HD M/W/F DM Arthritis HTN Anemia Dilated cardiomyopathy Continues to be afebrile with no leukocytosis Continue meropenem day 4 Surgery and GI notes reviewed and appreciated Discussed with GI team, plan for transfer to [facility] [place] for capsule endoscopy to evaluate small bowel bleeding We will follow with you Patient was seen and examined and case to be discussed with attending physician Thank you for the pleasure of participating in the care of this patient <Charlie Taylor - Last Filed: 06/22/18 17:42> Objective - Vital Signs/Intake and Output Vital Signs (last 24 hours): Temp Pulse Resp BP Pulse Ox 99.2 F 81 14 131/68 100 06/22/18 04:00 06/22/18 15:31 06/22/18 11:30 06/22/18 12:00 06/22/18 11:30 Intake and Output: 06/22/18 06/22/18 06:59 18:59 Intake Total 100 Output Total 30 Balance 70 - Medications Medications: Current Medications Acetaminophen (Tylenol 325mg Tab) 650 mg PO Q6H PRN PRN Reason: Pain, moderate (4-7) Last Admin: 06/18/18 21:10 Dose: 650 mg Amiodarone HCl (Cordarone) 200 mg PO DAILY [facility] Last Admin: 06/22/18 12:00 Dose: 200 mg Atorvastatin Calcium (Lipitor) 40 mg PO DIN [facility] Last Admin: 06/22/18 16:04 Dose: 40 mg Meropenem 250 mg/ Sodium (Chloride) 100 mls @ 100 mls/hr IVPB Q12H [facility]; Protocol Stop: 06/26/18 22:01 Last Admin: 06/22/18 13:56 Dose: 100 mls/hr Insulin Human Regular (Humulin R Low) 0 units SC ACHS [facility]; Protocol Last Admin: 06/22/18 16:14 Dose: Not Given Midodrine (Proamatine) 5 mg PO 0800,1200,1600 [facility] Last Admin: 06/22/18 16:04 Dose: 5 mg Pantoprazole Sodium (Protonix Inj) 40 mg IVP DAILY [facility] Last Admin: 06/22/18 11:58 Dose: 40 mg Sevelamer HCl (Renagel) 800 mg PO BID [facility] Last Admin: 06/22/18 17:27 Dose: 800 mg Tamsulosin HCl (Flomax) 0.4 mg PO DAILY [facility] Last Admin: 06/22/18 11:59 Dose: 0.4 mg Vitamin B Complex/Vit C/Folic Acid (Nephro-Tyson) 1 tab PO DAILY [facility] Last Admin: 06/22/18 11:59 Dose: 1 tab - Labs Labs: 06/22/18 05:10 06/22/18 05:10 PT 13.7 SECONDS (9.4-12.5) H 06/20/18 08:15 INR 1.21 06/20/18 08:15 APTT 35.4 Seconds (26.9-38.3) 06/15/18 11:00 Attending/Attestation - Attestation I have personally seen and examined this patient.: Yes I have fully participated in the care of the patient.: Yes I have reviewed all pertinent clinical information, including history, physical exam and plan: Yes
--- NOTE | 2018-06-22 14:29 | PN ---
DATE: 06/21/2018 SUBJECTIVE: The patient is seen lying in the bed in CCU, bed 4. PHYSICAL EXAMINATION VITAL SIGNS: The patient's T-max is 99.2; heart rate 83, 89, 77, 86; blood pressure is 134/69, 126/72, 131/71, 125/67, 138/68, 120/63; respirations 18-20; O2 sat is 99-100%. The patient is seen lying in the bed. The patient is presently getting hemodialysis. HEENT: Head: Normocephalic, atraumatic. HEENT examination shows pinkish pale conjunctivae. Anicteric sclerae. No oropharyngeal lesion. NECK: No neck rigidity. CHEST: Kyphosis. Positive left upper chest AICD. LUNGS: Show no audible crackle, rales or wheezing. CARDIOVASCULAR: S1, S2, regular rhythm. Positive systolic murmur, left sternal border, right second intercostal space, left second intercostal space. ABDOMEN: Soft. Positive bowel sound. No palpable hepatosplenomegaly. GENITALIA: Male. RECTAL: Deferred. EXTREMITIES: Show positive left upper extremity AV fistula, positive thrill, positive with dialysis catheter. Lower extremity shows no pitting edema, no calf tenderness, no Homans' sign. Positive contractures of both hands noted. Gait examination is not tested. The patient is seen lying in the bed. MUSCULOSKELETAL: Shows a body mass index of 29.6. DIAGNOSTICS: 06/21/2018; WBC 9.6, hemoglobin and hematocrit 9.3 and 28.6, platelets 154. Granulocytes 83% segs. Sodium 138, potassium 3.8, chloride 103, CO2 of 26, anion gap 13, BUN 17, creatinine 4.4, GFR 14, glucose 62, calcium 8.0, phosphorus 4.4, magnesium 2.0, iron 13, TIBC 175, saturation 7, albumin 2.7, PTH 104. Hepatitis B surface antigen negative. Urine culture ESBL Escherichia coli. IMPRESSION AND PLAN 1. Acute blood loss anemia, severely symptomatic with massive lower gastrointestinal bleeding and bright red blood per rectum. 2. Status post hypotensive hypovolemic hemorrhagic shock. 3. Acute blood loss anemia. 4. Status post status post 12 units of packed red blood cell transfusion, 5 units of fresh frozen plasma transfusion, 1 unit of platelet transfusion. 5. Leukocytosis with granulocytosis. 6. Normocytic anemia. 7. Granulocytosis. 8. End-stage renal disease, hemodialysis dependent. 9. Possible iron deficiency. 10. Secondary hyperparathyroidism with elevated parathyroid hormone of 104 and hypovitaminosis D. 11. Hyperphosphatemia. 12. Mild protein malnutrition and hypoalbuminemia. 13. Escherichia coli, extended-spectrum beta-lactamase urinary tract infection with proteinuria, glycosuria, ketonuria, microscopic hematuria, pyuria, bacteriuria. 14. 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 15. Deconditioning. 16. Gait dysfunction. 17. Cardiomegaly. 18. Status post automatic implantable cardioverter-defibrillator implant. 19. Right axis deviation. 20. Dilated cardiomyopathy, status post automatic implantable cardioverter-defibrillator implant. 21. History of arteriovenous malformation, history of multiple episodes of gastrointestinal bleeding and multiple episodes of packed red blood cell transfusion and transfusion-dependent anemia. 22. Possible small bowel bleeding. 23. Severe lower gastrointestinal bleeding. 24. Secondary hyperparathyroidism. 25. Extended-spectrum Escherichia coli urinary tract infection and cystitis. 26. Sigmoid colon, descending colon, diverticulosis and internal hemorrhoid. 27. Blood clots noticed in the entire colon and ileum. 28. Internal hemorrhoid. 29. History of hypotension. 30. Prostatic hypertrophy. 31. Hyperlipidemia. 1. Lower gastrointestinal bleeding with bright red blood per rectum. 2. History of hypotension. 3. Acute blood loss anemia with hemoglobin dropping to 5.9. 4. Transient thrombocytopenia. 5. Granulocytosis. 6. Mild coagulopathy. 7. End-stage renal disease, hemodialysis dependent. 8. Possible iron-deficiency anemia. 9. Mild hypoproteinemia. 10. Mild hypoalbuminemia. 11. Hyperphosphatemia. 12. Questionable urinary tract infection with proteinuria, glycosuria, ketonuria, hematuria, pyuria and bacteriuria. 13. History of Escherichia coli bacteremia. 14. Status post packed red blood cell transfusion x12. 15. Status post FFP transfusion x5. 16. Status post 1 unit of platelet transfusion. 17. Cardiomegaly. 18. Cholelithiasis. 19. Possible bladder outlet obstruction versus cystitis. 20. Prostatomegaly. 21. An L5-S1 degenerative disc disease. 22. Right axis deviation. 23. Sigmoid and descending colon diverticulosis. 24. Internal hemorrhoid. 25. Clotted blood in the colon. 26. Possible small bowel bleeding. 27. Blood in the ileum 20 cm proximal to the ileocecal valve. 28. Blood in the terminal ileum. 29. Redundant colon. 30. Questionable cystitis versus urinary tract infection. 31. Rheumatoid arthritis of the hands. 32. Dilated cardiomyopathy. 33. Acute blood loss anemia secondary to massive gastrointestinal bleeding. 34. Status post hypovolemic, hypotensive and hemorrhagic shock. 35. History of cecal arteriovenous malformation. 36. History of dilated cardiomyopathy, history of automatic implantable cardioverter defibrillator implant. 37. Prostatic hypertrophy versus bladder output obstruction. 38. History of hyperlipidemia. Plan at this time, the patient is awaiting transfer to [facility] for further GI intervention. The patient has been ordered repeat labs. Current consultation Gastroenterology, Nephrology, Cardiology, Infectious Disease, Surgery. CURRENT MEDICATIONS: Amiodarone 200 mg daily, Flomax 0.4 mg daily, Lipitor 40 mg daily, meropenem 250 mg IV every 12 hours, Nephro-Tyson 1 tablet daily, ProAmatine 5 mg three times a day, Protonix 40 mg daily, Renagel 800 three times a day, Tylenol p.r.n. At present, the patient is agreeable for transfer to [facility] for further gastroenterology intervention and treatment. Dictated and electronically signed, not read. Geoffrey Thacker MD MTDD
--- NOTE | 2018-06-22 15:27 | PN ---
DATE: 06/22/2018 SUBJECTIVE: The patient is seen lying in bed in the ICU. He is awake, he is alert, he is comfortable. He denies any chest pain, any shortness of breath. He denies any palpitations. PHYSICAL EXAMINATION: GENERAL: Elderly male lying in bed in the ICU. VITAL SIGNS: Blood pressure 131/68, heart rate 104, respiratory rate 16-18, temperature 99.2, T max is 99.2. HEENT: Normocephalic, atraumatic, positive pallor. NECK: Supple, no JVD. LUNGS: Bilateral equal entry, bilateral equal expansion. CARDIAC: S1, S2. Regular rate and rhythm, no murmur, no rub. ABDOMEN: Soft, nondistended, nontender, bowel sounds present. EXTREMITIES: No lower extremity edema. INTAKE AND OUTPUT: Ultrafiltration 2.5 kilograms on dialysis. LABORATORY DATA: WBC 11.8, hemoglobin 10, hematocrit 30.9, platelets 190. Sodium 138, potassium 4.0, chloride 104, CO2 of 24, BUN 23, creatinine 6.5, glucose 70. Urine culture, E. coli. CURRENT MEDICATIONS: Cordarone 200 mg, Flomax 0.4, Lipitor 40, meropenem 250 every 12 hours, ProAmatine 5 three times a day, Protonix, Renagel 800 twice a day, and Tylenol. ASSESSMENT: 1. Severe life-threatening gastrointestinal bleed. 2. Escherichia coli urinary tract infection. 3. End-stage renal disease. 4. Non-insulin dependent diabetes mellitus. 5. Dilated cardiomyopathy, congestive heart failure, automatic implantable cardioverter-defibrillator. 6. History of hypertension. PLAN: 1. Stable dialysis this morning. 2. The patient is awaiting transfer to [facility] for capsule endoscopy. 3. Continue antibiotics for E. coli UTI. 4. Monitor H&H. 5. Monitor fingersticks. 6. Continue ProAmatine. Grecia Young MD
[2018-06-22] MEDS: Insulin Reg-LOW-Coverage SC SCH ×2 (16:14→22:08)
[2018-06-23 05:36] LABS: BASO # 0.02 K/mm3 (0.0-2.0); BASO % 0.2 % (0.0-3.0); EOS # 0.3 (0.0-0.7); EOS % 2.7 % (1.5-5.0); HEMOGLOBIN 9.4 g/dL (14.0-18.0); LYMPH # 0.8 (1.2-3.4); LYMPH % 8.7 % (22.0-35.0); MEAN CELL VOLUME 91.8 fl (80.0-105.0); MEAN CORPUSCULAR HEMOGLOBIN 29.7 pg (25.0-35.0); MEAN CORPUSCULAR HGB CONC 32.4 g/dl (31.0-37.0); MEAN PLATELET VOLUME 8.6 fl (7.0-11.0); MONO # 0.5 (0.1-0.6); MONO % 5.8 % (1.0-6.0); RBC 3.16 10^6/uL (3.5-6.1); RED CELL DISTRIBUTION WIDTH 15.2 % (11.5-14.5); WHITE BLOOD COUNT 9.2 10^3/uL (4.5-11.0)
[2018-06-23 07:03] LABS: ALB/GLOB RATIO 0.7 (1.1-1.8); ALBUMIN 2.5 g/dL (3.0-4.8); BILIRUBIN,DIRECT 0.7 mg/dL (0.0-0.4); CALCIUM 7.9 mg/dL (8.4-10.5)
--- NOTE | 2018-06-23 07:14 | CP.PCM.PN ---
<Dl Santos - Last Filed: 06/23/18 21:35> Subjective - Date & Time of Evaluation Date of Evaluation: 06/23/18 Time of Evaluation: 06:20 - Subjective Subjective: Dl Santos PGY2 GI Progress Note for Dr. Wynn Patient was seen and examined at bedside in ICU. The patient did not have a BM and has not had any more bleeding for several days. His BP and H/H are stable. As we do not have a source of bleeding finalized, patient would benefit from transfer to [facility] for high level of care. The curriculum writer attempted to contact the patient's with no success. Objective - Vital Signs/Intake and Output Vital Signs (last 24 hours): Temp Pulse Resp BP Pulse Ox 98.5 F 80 14 131/68 100 06/23/18 04:00 06/23/18 06:00 06/22/18 11:30 06/22/18 12:00 06/22/18 11:30 Intake and Output: 06/23/18 06/23/18 06:59 18:59 Intake Total 400 Output Total 0 Balance 400 - Medications Medications: Current Medications Acetaminophen (Tylenol 325mg Tab) 650 mg PO Q6H PRN PRN Reason: Pain, moderate (4-7) Last Admin: 06/18/18 21:10 Dose: 650 mg Amiodarone HCl (Cordarone) 200 mg PO DAILY [facility] Last Admin: 06/22/18 12:00 Dose: 200 mg Atorvastatin Calcium (Lipitor) 40 mg PO DIN [facility] Last Admin: 06/22/18 16:04 Dose: 40 mg Meropenem 250 mg/ Sodium (Chloride) 100 mls @ 100 mls/hr IVPB Q12H [facility]; Protocol Stop: 06/26/18 22:01 Last Admin: 06/22/18 22:08 Dose: 100 mls/hr Insulin Human Regular (Humulin R Low) 0 units SC ACHS [facility]; Protocol Last Admin: 06/22/18 22:08 Dose: Not Given Midodrine (Proamatine) 5 mg PO 0800,1200,1600 [facility] Last Admin: 06/22/18 16:04 Dose: 5 mg Pantoprazole Sodium (Protonix Inj) 40 mg IVP DAILY [facility] Last Admin: 06/22/18 11:58 Dose: 40 mg Sevelamer HCl (Renagel) 800 mg PO BID [facility] Last Admin: 06/22/18 17:27 Dose: 800 mg Tamsulosin HCl (Flomax) 0.4 mg PO DAILY [facility] Last Admin: 06/22/18 11:59 Dose: 0.4 mg Vitamin B Complex/Vit C/Folic Acid (Nephro-Tyson) 1 tab PO DAILY [facility] Last Admin: 06/22/18 11:59 Dose: 1 tab - Labs Labs: 06/23/18 05:15 06/23/18 05:15 PT 13.7 SECONDS (9.4-12.5) H 06/20/18 08:15 INR 1.21 06/20/18 08:15 APTT 35.4 Seconds (26.9-38.3) 06/15/18 11:00 - Constitutional Appears: Non-toxic, No Acute Distress - Head Exam Head Exam: ATRAUMATIC, NORMAL INSPECTION - Eye Exam Eye Exam: EOMI, Normal appearance - ENT Exam ENT Exam: Mucous Membranes Moist, Normal Exam - Neck Exam Neck Exam: Full ROM - Respiratory Exam Respiratory Exam: NORMAL BREATHING PATTERN - Cardiovascular Exam Cardiovascular Exam: RRR, +S1, +S2, Murmur Additional comments: AICD - GI/Abdominal Exam GI & Abdominal Exam: Soft, Normal Bowel Sounds. absent: Distended, Tenderness - Extremities Exam Extremities Exam: Full ROM. absent: Pedal Edema Additional comments: LUE AVF +bruit +thrill - Back Exam Back Exam: Full ROM, NORMAL INSPECTION - Neurological Exam Neurological Exam: Alert, Awake - Skin Skin Exam: Normal Color, Warm Assessment and Plan - Assessment and Plan (Free Text) Assessment: 67 year old male with a PMH of dilated cardiomyopathy (EF 22%) s/p defibrillator, ESRD on HD MWF, DM2, Arthritis, HTN and Anemia of chronic disease/iron deficiency who is admitted with symptomatic anemia and bloody stool movement. GI is consulted for anemia, and bright red blood per rectum. s/p EGD and 2 colonoscopies which did not reveal site of active bleeding, but it seems the source was from the small intestine. H/H and BP stable now. Surgery team is following, but no operative procedures are recommended at this time. Meckel's scan did not show bleeding. Downgraded from ICU to telemetry monitoring. Patient is pending transfer to [facility] pending bed availability. ESBL noted in the urine. Plan: - abx per ID - cont contact isolation - monitor VS - monitor H/H - to transfer to [facility] pending bed availability for evaluation of small intestine bleeding; we do not have capacity for such intervention [place] [facility] [place] - cont CLD - further recs per Dr. Wynn Case was reviewed and discussed with Dr. Wynn <Foreign Wynn V - Last Filed: 06/23/18 23:23> Objective - Vital Signs/Intake and Output Vital Signs (last 24 hours): Temp Pulse Resp BP Pulse Ox 98.5 F 74 11 L 109/54 L 100 06/23/18 16:00 06/23/18 21:27 06/23/18 20:00 06/23/18 20:00 06/23/18 20:00 Intake and Output: 06/23/18 06/24/18 18:59 06:59 Intake Total 1300 Output Total 5 Balance 1295 - Medications Medications: Current Medications Acetaminophen (Tylenol 325mg Tab) 650 mg PO Q6H PRN PRN Reason: Pain, moderate (4-7) Last Admin: 06/18/18 21:10 Dose: 650 mg Amiodarone HCl (Cordarone) 200 mg PO DAILY [facility] Last Admin: 06/23/18 09:27 Dose: 200 mg Atorvastatin Calcium (Lipitor) 40 mg PO DIN [facility] Last Admin: 06/23/18 17:26 Dose: 40 mg Meropenem 250 mg/ Sodium (Chloride) 100 mls @ 100 mls/hr IVPB Q12H [facility]; Protocol Stop: 06/26/18 22:01 Last Admin: 06/23/18 21:05 Dose: 100 mls/hr Insulin Human Regular (Humulin R Low) 0 units SC ACHS [facility]; Protocol Last Admin: 06/23/18 21:10 Dose: Not Given Midodrine (Proamatine) 5 mg PO 0800,1200,1600 [facility] Last Admin: 06/23/18 17:26 Dose: 5 mg Pantoprazole Sodium (Protonix Ec Tab) 40 mg PO ACB [facility] Last Admin: 06/23/18 08:29 Dose: 40 mg Sevelamer HCl (Renagel) 800 mg PO BID [facility] Last Admin: 06/23/18 17:26 Dose: 800 mg Tamsulosin HCl (Flomax) 0.4 mg PO DAILY [facility] Last Admin: 06/23/18 09:27 Dose: 0.4 mg Vitamin B Complex/Vit C/Folic Acid (Nephro-Tyson) 1 tab PO DAILY [facility] Last Admin: 06/23/18 09:27 Dose: 1 tab - Labs Labs: 06/23/18 05:15 06/23/18 05:15 PT 13.7 SECONDS (9.4-12.5) H 06/20/18 08:15 INR 1.21 06/20/18 08:15 APTT 35.4 Seconds (26.9-38.3) 06/15/18 11:00 Attending/Attestation - Attestation I have personally seen and examined this patient.: Yes I have fully participated in the care of the patient.: Yes I have reviewed all pertinent clinical information, including history, physical exam and plan: Yes Notes (Text): The patient is comfortable no further episodes of bleeding. ESBL UTI on IV antibiotics as per ID on isolation. End-stage renal disease on hemodialysis Awaiting for transfer to [facility] for capsule endoscopy/balloon assisted enteroscopy to further evaluate this recent history of massive GI bleeding probably small bowel bleeding. Other differential diagnosis include diverticular and anti-AVM in the colon Close follow-up of hemoglobin hematocrit 06/23/18 23:16
--- NOTE | 2018-06-23 07:23 | CP.PCM.PN ---
Subjective - Date & Time of Evaluation Date of Evaluation: 06/22/18 Time of Evaluation: 06:00 Objective - Vital Signs/Intake and Output Vital Signs (last 24 hours): Temp Pulse Resp BP Pulse Ox 98.5 F 80 14 131/68 100 06/23/18 04:00 06/23/18 06:00 06/22/18 11:30 06/22/18 12:00 06/22/18 11:30 Intake and Output: 06/23/18 06/23/18 06:59 18:59 Intake Total 400 Output Total 0 Balance 400 - Medications Medications: Current Medications Acetaminophen (Tylenol 325mg Tab) 650 mg PO Q6H PRN PRN Reason: Pain, moderate (4-7) Last Admin: 06/18/18 21:10 Dose: 650 mg Amiodarone HCl (Cordarone) 200 mg PO DAILY [facility] Last Admin: 06/22/18 12:00 Dose: 200 mg Atorvastatin Calcium (Lipitor) 40 mg PO DIN [facility] Last Admin: 06/22/18 16:04 Dose: 40 mg Meropenem 250 mg/ Sodium (Chloride) 100 mls @ 100 mls/hr IVPB Q12H [facility]; P rotocol Stop: 06/26/18 22:01 Last Admin: 06/22/18 22:08 Dose: 100 mls/hr Insulin Human Regular (Humulin R Low) 0 units SC ACHS [facility]; Protocol Last Admin: 06/22/18 22:08 Dose: Not Given Midodrine (Proamatine) 5 mg PO 0800,1200,1600 [facility] Last Admin: 06/22/18 16:04 Dose: 5 mg Pantoprazole Sodium (Protonix Inj) 40 mg IVP DAILY [facility] Last Admin: 06/22/18 11:58 Dose: 40 mg Sevelamer HCl (Renagel) 800 mg PO BID [facility] Last Admin: 06/22/18 17:27 Dose: 800 mg Tamsulosin HCl (Flomax) 0.4 mg PO DAILY [facility] Last Admin: 06/22/18 11:59 Dose: 0.4 mg Vitamin B Complex/Vit C/Folic Acid (Nephro-Tyson) 1 tab PO DAILY [facility] Last Admin: 06/22/18 11:59 Dose: 1 tab - Labs Labs: 06/23/18 05:15 06/23/18 05:15 PT 13.7 SECONDS (9.4-12.5) H 06/20/18 08:15 INR 1.21 06/20/18 08:15 APTT 35.4 Seconds (26.9-38.3) 06/15/18 11:00
[2018-06-23] MEDS: Pantoprazole 40 mg EC Tab PO SCH (08:29)
[2018-06-23] MEDS: Insulin Reg-LOW-Coverage SC SCH ×4 (08:30→21:10)
[2018-06-23] MEDS: Multivitamin Vitamin B Complex (Nephro-Vite) Tab PO SCH (09:27)
[2018-06-23] MEDS ORDERED: Iron Sucrose 100 mg/5 ml Inj IVP ONE (12:53)
--- NOTE | 2018-06-23 14:15 | CP.PCM.PN ---
<Quang Parker - Last Filed: 06/23/18 14:10> Subjective - Date & Time of Evaluation Date of Evaluation: 06/23/18 Time of Evaluation: 07:40 - Subjective Subjective: Quang Parker D.O. PGY-3, Internal Medicine, Infectious Disease Progress Note 67 year old male with a PMH of dilated cardiomyopathy s/p defibrillator, ESRD on HD M/W/F, DM, Arthritis, HTN and anemia of chronic disease/iron deficiency who is admitted with symptomatic anemia and bloody stool movement. Infectious disease consultation was requested for UTI. Patient was seen and examined at bedside. Comfortable. No acute complaints offered. Objective - Vital Signs/Intake and Output Vital Signs (last 24 hours): Temp Pulse Resp BP Pulse Ox 99 F 77 20 106/60 100 06/23/18 08:00 06/23/18 10:00 06/23/18 10:00 06/23/18 10:00 06/23/18 10:00 Intake and Output: 06/23/18 06/23/18 06:59 18:59 Intake Total 400 Output Total 0 Balance 400 - Medications Medications: Current Medications Acetaminophen (Tylenol 325mg Tab) 650 mg PO Q6H PRN PRN Reason: Pain, moderate (4-7) Last Admin: 06/18/18 21:10 Dose: 650 mg Amiodarone HCl (Cordarone) 200 mg PO DAILY [facility] Last Admin: 06/23/18 09:27 Dose: 200 mg Atorvastatin Calcium (Lipitor) 40 mg PO DIN [facility] Last Admin: 06/22/18 16:04 Dose: 40 mg Meropenem 250 mg/ Sodium (Chloride) 100 mls @ 100 mls/hr IVPB Q12H [facility]; Protocol Stop: 06/26/18 22:01 Last Admin: 06/23/18 09:28 Dose: 100 mls/hr Insulin Human Regular (Humulin R Low) 0 units SC ACHS [facility]; Protocol Last Admin: 06/23/18 08:30 Dose: Not Given Midodrine (Proamatine) 5 mg PO 0800,1200,1600 [facility] Last Admin: 06/23/18 08:29 Dose: 5 mg Pantoprazole Sodium (Protonix Ec Tab) 40 mg PO ACB [facility] Last Admin: 06/23/18 08:29 Dose: 40 mg Sevelamer HCl (Renagel) 800 mg PO BID [facility] Last Admin: 06/23/18 08:30 Dose: 800 mg Tamsulosin HCl (Flomax) 0.4 mg PO DAILY [facility] Last Admin: 06/23/18 09:27 Dose: 0.4 mg Vitamin B Complex/Vit C/Folic Acid (Nephro-Tyson) 1 tab PO DAILY [facility] Last Admin: 06/23/18 09:27 Dose: 1 tab - Labs Labs: 06/23/18 05:15 06/23/18 05:15 PT 13.7 SECONDS (9.4-12.5) H 06/20/18 08:15 INR 1.21 06/20/18 08:15 APTT 35.4 Seconds (26.9-38.3) 06/15/18 11:00 - Constitutional Appears: Non-toxic, No Acute Distress - Head Exam Head Exam: ATRAUMATIC, NORMAL INSPECTION - Eye Exam Eye Exam: Normal appearance. absent: Scleral icterus - ENT Exam ENT Exam: Mucous Membranes Moist, Normal Exam - Neck Exam Neck exam: Positive for: Full Rom, Normal Inspection - Respiratory Exam Respiratory Exam: CTAB, no W/R/R - Cardiovascular Exam Cardiovascular Exam: RRR, +S1, +S2 - GI/Abdominal Exam GI & Abdominal Exam: Soft. absent: Distended, Tenderness - Extremities Exam Extremities exam: LUE AVF with palpable thrill - Neurological Exam Neurological exam: Alert, Oriented x4 - Skin Skin Exam: Normal Color, Warm Assessment and Plan - Assessment and Plan (Free Text) Assessment: 67 year old male with a PMH of dilated cardiomyopathy s/p defibrillator, ESRD on HD M/W/F, DM, Arthritis, HTN and anemia of chronic disease/iron deficiency who is admitted with symptomatic anemia and bloody stool movement. Infectious disease consultation was requested for UTI. Plan: ESBL E. Coli cystitis/urinary tract infection Worsening anemia ESRD on HD M/W/F DM Arthritis HTN Anemia Dilated cardiomyopathy Afebrile No leukocytosis Continue meropenem day 5 Surgery and GI notes reviewed and appreciated Will repeat UA and urine C&S, apparently per nursing when it was collected last time it was milky white-pus like We will follow with you Patient was seen and examined and case to be discussed with attending physician Thank you for the pleasure of participating in the care of this patient <Charlie Taylor - Last Filed: 06/23/18 16:42> Objective - Vital Signs/Intake and Output Vital Signs (last 24 hours): Temp Pulse Resp BP Pulse Ox 99 F 77 20 106/60 100 06/23/18 08:00 06/23/18 10:00 06/23/18 10:00 06/23/18 10:00 06/23/18 10:00 Intake and Output: 06/23/18 06/23/18 06:59 18:59 Intake Total 400 Output Total 0 Balance 400 - Medications Medications: Current Medications Acetaminophen (Tylenol 325mg Tab) 650 mg PO Q6H PRN PRN Reason: Pain, moderate (4-7) Last Admin: 06/18/18 21:10 Dose: 650 mg Amiodarone HCl (Cordarone) 200 mg PO DAILY [facility] Last Admin: 06/23/18 09:27 Dose: 200 mg Atorvastatin Calcium (Lipitor) 40 mg PO DIN [facility] Last Admin: 06/22/18 16:04 Dose: 40 mg Meropenem 250 mg/ Sodium (Chloride) 100 mls @ 100 mls/hr IVPB Q12H [facility]; Protocol Stop: 06/26/18 22:01 Last Admin: 06/23/18 09:28 Dose: 100 mls/hr Insulin Human Regular (Humulin R Low) 0 units SC ACHS [facility]; Protocol Last Admin: 06/23/18 12:00 Dose: Not Given Midodrine (Proamatine) 5 mg PO 0800,1200,1600 [facility] Last Admin: 06/23/18 14:16 Dose: 5 mg Pantoprazole Sodium (Protonix Ec Tab) 40 mg PO ACB [facility] Last Admin: 06/23/18 08:29 Dose: 40 mg Sevelamer HCl (Renagel) 800 mg PO BID [facility] Last Admin: 06/23/18 08:30 Dose: 800 mg Tamsulosin HCl (Flomax) 0.4 mg PO DAILY [facility] Last Admin: 06/23/18 09:27 Dose: 0.4 mg Vitamin B Complex/Vit C/Folic Acid (Nephro-Tyson) 1 tab PO DAILY [facility] Last Admin: 06/23/18 09:27 Dose: 1 tab - Labs Labs: 06/23/18 05:15 06/23/18 05:15 PT 13.7 SECONDS (9.4-12.5) H 06/20/18 08:15 INR 1.21 06/20/18 08:15 APTT 35.4 Seconds (26.9-38.3) 06/15/18 11:00 Attending/Attestation - Attestation I have personally seen and examined this patient.: Yes I have fully participated in the care of the patient.: Yes I have reviewed all pertinent clinical information, including history, physical exam and plan: Yes
--- NOTE | 2018-06-23 14:18 | PN ---
DATE: 06/23/2018 SUBJECTIVE: The patient is awake, alert. PHYSICAL EXAMINATION: VITAL SIGNS: Blood pressure is 108/54, heart rate is in the 70s. NECK: Negative JVD. LUNGS: Without rales. HEART: S1, S2. EXTREMITIES: Without edema. LABORATORY DATA: Hemoglobin is 9.4, which is stable. BUN and creatinine are unremarkable. IMPRESSION: 1. Seems there is no active gastrointestinal bleeding. 2. End-stage renal disease. 3. Dilated cardiomyopathy. 4. Coronary artery disease. 5. Anemia. PLAN: Given these findings, the patient so far is stable without evidence for acute continued GI bleed. We will continue to monitor the hemoglobin carefully. Kamari Watt MD
--- NOTE | 2018-06-23 14:22 | CP.PCM.PN ---
Subjective - Date & Time of Evaluation Date of Evaluation: 06/23/18 Time of Evaluation: 14:18 - Subjective Subjective: Mika Saravia PGY1 Progress Note for Dr. Winter Pt was examined at bedside this morning. He has no complaints today. No acute ev ents overnight. As per RN report, there were no bloody BMs overnight. Objective - Vital Signs/Intake and Output Vital Signs (last 24 hours): Temp Pulse Resp BP Pulse Ox 99 F 77 20 106/60 100 06/23/18 08:00 06/23/18 10:00 06/23/18 10:00 06/23/18 10:00 06/23/18 10:00 Intake and Output: 06/23/18 06/23/18 06:59 18:59 Intake Total 400 Output Total 0 Balance 400 - Medications Medications: Current Medications Acetaminophen (Tylenol 325mg Tab) 650 mg PO Q6H PRN PRN Reason: Pain, moderate (4-7) Last Admin: 06/18/18 21:10 Dose: 650 mg Amiodarone HCl (Cordarone) 200 mg PO DAILY [facility] Last Admin: 06/23/18 09:27 Dose: 200 mg Atorvastatin Calcium (Lipitor) 40 mg PO DIN [facility] Last Admin: 06/22/18 16:04 Dose: 40 mg Meropenem 250 mg/ Sodium (Chloride) 100 mls @ 100 mls/hr IVPB Q12H [facility]; Protocol Stop: 06/26/18 22:01 Last Admin: 06/23/18 09:28 Dose: 100 mls/hr Insulin Human Regular (Humulin R Low) 0 units SC ACHS [facility]; Protocol Last Admin: 06/23/18 12:00 Dose: Not Given Midodrine (Proamatine) 5 mg PO 0800,1200,1600 [facility] Last Admin: 06/23/18 14:16 Dose: 5 mg Pantoprazole Sodium (Protonix Ec Tab) 40 mg PO ACB [facility] Last Admin: 06/23/18 08:29 Dose: 40 mg Sevelamer HCl (Renagel) 800 mg PO BID [facility] Last Admin: 06/23/18 08:30 Dose: 800 mg Tamsulosin HCl (Flomax) 0.4 mg PO DAILY [facility] Last Admin: 06/23/18 09:27 Dose: 0.4 mg Vitamin B Complex/Vit C/Folic Acid (Nephro-Tyson) 1 tab PO DAILY [facility] Last Admin: 06/23/18 09:27 Dose: 1 tab - Labs Labs: 06/23/18 05:15 06/23/18 05:15 PT 13.7 SECONDS (9.4-12.5) H 06/20/18 08:15 INR 1.21 06/20/18 08:15 APTT 35.4 Seconds (26.9-38.3) 06/15/18 11:00 - Constitutional Appears: Well, No Acute Distress - Head Exam Head Exam: ATRAUMATIC, NORMOCEPHALIC - Eye Exam Eye Exam: EOMI, Normal appearance - ENT Exam ENT Exam: Mucous Membranes Moist - Respiratory Exam Respiratory Exam: NORMAL BREATHING PATTERN. absent: Respiratory Distress - GI/Abdominal Exam GI & Abdominal Exam: Soft. absent: Distended, Guarding, Tenderness - Extremities Exam Extremities Exam: Normal Inspection - Neurological Exam Neurological Exam: Alert, Awake, Oriented x3 - Psychiatric Exam Psychiatric exam: Normal Affect, Normal Mood Assessment and Plan - Assessment and Plan (Free Text) Assessment: 67yoM with PMH of dilated cardiomyopathy s/p defibrillator, ESRD, DM2, Arthritis, HTN and Anemia admitted with for blood per rectum and symptomatic anemia. No active bleeding found on Meckel's scan. Suspected bleeding from small intenstine. Plan: - no current bleeding - H/H stable, continue to monitor - no plan for surgical intervention at this time - awaiting transfer to [facility] for balloon enteroscopy further recs as per Dr. Winter
[2018-06-24 06:35] LABS: BASO # 0.02 K/mm3 (0.0-2.0); BASO % 0.2 % (0.0-3.0); EOS # 0.3 (0.0-0.7); EOS % 3.3 % (1.5-5.0); HEMOGLOBIN 9.6 g/dL (14.0-18.0); LYMPH # 0.7 (1.2-3.4); LYMPH % 8.9 % (22.0-35.0); MEAN CELL VOLUME 92.1 fl (80.0-105.0); MEAN CORPUSCULAR HEMOGLOBIN 30.2 pg (25.0-35.0); MEAN CORPUSCULAR HGB CONC 32.8 g/dl (31.0-37.0); MEAN PLATELET VOLUME 9.1 fl (7.0-11.0); MONO # 0.6 (0.1-0.6); MONO % 7.1 % (1.0-6.0); RBC 3.18 10^6/uL (3.5-6.1); RED CELL DISTRIBUTION WIDTH 15.1 % (11.5-14.5); WHITE BLOOD COUNT 8.4 10^3/uL (4.5-11.0)
--- NOTE | 2018-06-24 06:45 | CP.PCM.PN ---
<Dl Santos - Last Filed: 06/24/18 11:12> Subjective - Date & Time of Evaluation Date of Evaluation: 06/24/18 Time of Evaluation: 07:15 - Subjective Subjective: Dl Santos PGY2 GI Progress Note for Dr. Wynn Patient was seen and examined at bedside in ICU. The patient had a brown BM that was not loose and with no blood. He is frustrated regarding why he's not transferred yet, and it was explained to him again. He will receive an HD session this AM. Patient gave me his 's work number to attempt to call her today (Jammie, ). Objective - Vital Signs/Intake and Output Vital Signs (last 24 hours): Temp Pulse Resp BP Pulse Ox 98.5 F 83 24 105/63 100 06/23/18 16:00 06/24/18 05:45 06/24/18 04:00 06/24/18 04:00 06/24/18 04:00 Intake and Output: 06/23/18 06/24/18 18:59 06:59 Intake Total 1300 50 Output Total 5 Balance 1295 50 - Medications Medications: Current Medications Acetaminophen (Tylenol 325mg Tab) 650 mg PO Q6H PRN PRN Reason: Pain, moderate (4-7) Last Admin: 06/18/18 21:10 Dose: 650 mg Amiodarone HCl (Cordarone) 200 mg PO DAILY [facility] Last Admin: 06/23/18 09:27 Dose: 200 mg Atorvastatin Calcium (Lipitor) 40 mg PO DIN [facility] Last Admin: 06/23/18 17:26 Dose: 40 mg Meropenem 250 mg/ Sodium (Chloride) 100 mls @ 100 mls/hr IVPB Q12H [facility]; Protocol Stop: 06/26/18 22:01 Last Admin: 06/23/18 21:05 Dose: 100 mls/hr Insulin Human Regular (Humulin R Low) 0 units SC ACHS [facility]; Protocol Last Admin: 06/23/18 21:10 Dose: Not Given Midodrine (Proamatine) 5 mg PO 0800,1200,1600 [facility] Last Admin: 06/23/18 17:26 Dose: 5 mg Pantoprazole Sodium (Protonix Ec Tab) 40 mg PO ACB [facility] Last Admin: 06/23/18 08:29 Dose: 40 mg Sevelamer HCl (Renagel) 800 mg PO BID [facility] Last Admin: 06/23/18 17:26 Dose: 800 mg Tamsulosin HCl (Flomax) 0.4 mg PO DAILY [facility] Last Admin: 06/23/18 09:27 Dose: 0.4 mg Vitamin B Complex/Vit C/Folic Acid (Nephro-Tyson) 1 tab PO DAILY [facility] Last Admin: 06/23/18 09:27 Dose: 1 tab - Labs Labs: 06/24/18 05:00 06/23/18 05:15 PT 13.7 SECONDS (9.4-12.5) H 06/20/18 08:15 INR 1.21 06/20/18 08:15 APTT 35.4 Seconds (26.9-38.3) 06/15/18 11:00 - Constitutional Appears: Non-toxic, No Acute Distress - Head Exam Head Exam: ATRAUMATIC, NORMAL INSPECTION - Eye Exam Eye Exam: EOMI, Normal appearance - ENT Exam ENT Exam: Mucous Membranes Moist, Normal Exam - Neck Exam Neck Exam: Full ROM - Respiratory Exam Respiratory Exam: NORMAL BREATHING PATTERN - Cardiovascular Exam Cardiovascular Exam: RRR, +S1, +S2, Murmur Additional comments: AICD - GI/Abdominal Exam GI & Abdominal Exam: Soft, Normal Bowel Sounds. absent: Distended, Tenderness - Extremities Exam Extremities Exam: Full ROM. absent: Pedal Edema Additional comments: LUE AVF +bruit +thrill - Back Exam Back Exam: Full ROM, NORMAL INSPECTION - Neurological Exam Neurological Exam: Alert, Awake - Skin Skin Exam: Normal Color, Warm Assessment and Plan - Assessment and Plan (Free Text) Assessment: 67 year old male with a PMH of dilated cardiomyopathy (EF 22%) s/p defibrillator, ESRD on HD MWF, DM2, Arthritis, HTN and Anemia of chronic disease/iron deficiency who is admitted with symptomatic anemia and bloody stool movement. GI is consulted for anemia, and bright red blood per rectum. s/p EGD and 2 colonoscopies which did not reveal site of active bleeding, but it seems the source was from the small intestine. H/H and BP stable now. Surgery team is following, but no operative procedures are recommended at this time. Meckel's scan did not show bleeding. Downgraded from ICU to telemetry monitoring. Patient is pending transfer to [facility] pending bed availability. ESBL noted in the urine. Urine was collected today and remains maldonado (pus) appearance. Plan: - abx per ID - cont contact isolation - requested repeat urine culture - mortensen inserted - out of bed to chair - attempted to contact today with no success again - monitor VS - monitor H/H - to transfer to [facility] pending bed availability for evaluation of small intestine bleeding; we do not have capacity for such intervention at [facility] - would recommend downgrading patient to med-surg as he has been patient and not requiring any intervention for several days as that could assist in the transfer process due to bed availability. Patient is at risk for rebleeding which could complicate his hospital stay and he would benefit from immediate transfer to center w/ higher level of car - Contacted Dr. Thacker and his answering service with no response; discussed with resident - cont CLD - further recs per Dr. Wynn Case was reviewed and discussed with Dr. Wynn <Foreign Wynn V - Last Filed: 06/24/18 21:53> Objective - Vital Signs/Intake and Output Vital Signs (last 24 hours): Temp Pulse Resp BP Pulse Ox 98.5 F 118 H 17 91/54 L 100 06/23/18 16:00 06/24/18 13:27 06/24/18 09:45 06/24/18 15:05 06/24/18 15:05 Intake and Output: 06/24/18 06/25/18 18:59 06:59 Intake Total 600 Output Total 600 Balance 0 - Medications Medications: Current Medications Acetaminophen (Tylenol 325mg Tab) 650 mg PO Q6H PRN PRN Reason: Pain, moderate (4-7) Last Admin: 06/18/18 21:10 Dose: 650 mg Amiodarone HCl (Cordarone) 200 mg PO DAILY [facility] Last Admin: 06/24/18 13:27 Dose: 200 mg Atorvastatin Calcium (Lipitor) 40 mg PO DIN [facility] Last Admin: 06/24/18 16:10 Dose: 40 mg Meropenem 250 mg/ Sodium (Chloride) 100 mls @ 100 mls/hr IVPB Q12H [facility]; Protocol Stop: 06/26/18 22:01 Last Admin: 06/24/18 13:27 Dose: 100 mls/hr Insulin Human Regular (Humulin R Low) 0 units SC ACHS [facility]; Protocol Last Admin: 06/24/18 16:10 Dose: Not Given Midodrine (Proamatine) 5 mg PO 0800,1200,1600 [facility] Last Admin: 06/24/18 16:08 Dose: 5 mg Pantoprazole Sodium (Protonix Ec Tab) 40 mg PO ACB [facility] Last Admin: 06/24/18 07:30 Dose: 40 mg Sevelamer HCl (Renagel) 800 mg PO BID [facility] Last Admin: 06/24/18 17:59 Dose: 800 mg Tamsulosin HCl (Flomax) 0.4 mg PO DAILY [facility] Last Admin: 06/24/18 14:53 Dose: 0.4 mg Vitamin B Complex/Vit C/Folic Acid (Nephro-Tyosn) 1 tab PO DAILY [facility] Last Admin: 06/24/18 13:27 Dose: 1 tab - Labs Labs: 06/24/18 05:00 06/24/18 06:30 PT 13.7 SECONDS (9.4-12.5) H 06/20/18 08:15 INR 1.21 06/20/18 08:15 APTT 35.4 Seconds (26.9-38.3) 06/15/18 11:00 Attending/Attestation - Attestation I have personally seen and examined this patient.: Yes I have fully participated in the care of the patient.: Yes I have reviewed all pertinent clinical information, including history, physical exam and plan: Yes Notes (Text): This patient was seen and evaluated at the bacteriologist medical here earlier today in ICU. Patient did have a bladder scan then catheter drainage of the urine for culture. Patient has been downgraded to med surgery floor. The resident did discuss with the GI fellow at [facility] in [place]. The need for inpatient evaluation was explained in view of this more than 11 units of packed RBC transfusion and there is concern about re-bleed. Patient is waiting for bed in [facility]. Patient is on isolation for ESBL UTI. 06/24/18 21:50
[2018-06-24 07:14] LABS: ALB/GLOB RATIO 0.7 (1.1-1.8); ALBUMIN 2.5 g/dL (3.0-4.8); BILIRUBIN,DIRECT 0.6 mg/dL (0.0-0.4)
[2018-06-24] MEDS: Pantoprazole 40 mg EC Tab PO SCH (07:30)
--- NOTE | 2018-06-24 08:28 | PN ---
DATE: 06/23/2018 SUBJECTIVE: The patient is seen sitting in chair in the ICU. He is awake, he is alert, he is comfortable. He denies any chest pain. Denies any palpitation. Denies any shortness of breath. He had a brown bowel movement earlier. PHYSICAL EXAMINATION GENERAL: Elderly male sitting in chair. VITAL SIGNS: Blood pressure 106/60, heart rate 77, respiratory rate 20, temperature 99. HEENT: Normocephalic, atraumatic, positive pallor. NECK: Supple, no JVD. LUNGS: Bilateral equal air entry, bilateral equal expansion. CARDIAC: S1 and S2, regular rate rhythm, no murmur, no rub. ABDOMEN: Distended, soft, nontender, bowel sounds present. EXTREMITIES: No lower extremity edema. INTAKE AND OUTPUT: 910/2000 ultrafiltrated on dialysis yesterday. LABORATORY DATA: WBC 9, hemoglobin 9.4, hematocrit 29, platelets 156. Sodium 135, potassium 4.0, chloride 101, CO2 of 28, BUN 16, creatinine 4.7, glucose 87, calcium 7.9, phosphorus 3.9, magnesium 1.9. Iron saturation is 7%, ferritin is 434. CURRENT MEDICATIONS: Cordarone 200, Flomax, insulin, Lipitor 40, meropenem 250 every 12 hours, Nephro-Tyson, ProAmatine 5 t.i.d., Protonix, Renagel 800 b.i.d., Tylenol. ASSESSMENT 1. Severe life-threatening gastrointestinal bleed, status post 12 units of packed red blood cells, fresh-frozen plasma. 2. Colonoscopy x2, no bleeding source found likely in the small bowel. 3. Cardiomyopathy, decreased ejection fraction, automatic implantable cardioverter-defibrillator. 4. Noninsulin-dependent diabetes mellitus. 5. End-stage renal disease. PLAN 1. Dialysis tomorrow without heparin. 2. Venofer 100 mg IV piggyback every dialysis. 3. Awaiting transfer to [facility] for balloon enteroscopy. 4. Continue . Grecia Young MD
--- NOTE | 2018-06-24 08:51 | PN ---
DATE: 06/23/2018 SUBJECTIVE: The patient is seen in ICU-CCU, bed 1. Patient is lying in the bed. Overnight nurse's notes were reviewed. No adverse events were documented, notified or called for. The patient still did not get a bed at [facility] to be transferred. The patient is awaiting transfer for Interventional Gastroenterology service. The patient denies any rectal bleeding. Denies any nausea, vomiting. REVIEW OF SYSTEMS: A 14-system review was done, pertinent positive and negative as dictated above. PHYSICAL EXAMINATION: VITAL SIGNS: T-max 99.20. Telemetry shows sinus rhythm, heart rate 81, 84, 92. Blood pressure 131/68, O2 sat 100%. HEENT: Normocephalic, atraumatic. Pinkish pale conjunctivae. Anicteric sclerae. No oropharyngeal lesion. NECK: No neck rigidity. CHEST: Kyphosis. Positive left upper chest defibrillator noted. LUNGS: Examination shows questionable decreased breath sound at the bases, left more than the right. No audible rales, crackles or wheezing. CARDIOVASCULAR: S1, S2, regular rhythm. Positive systolic murmur, left sternal border, right second intercostal space, left second intercostal space. ABDOMEN: Soft. Positive bowel sound. No palpable hepatosplenomegaly. GENITALIA: Male. RECTAL: Examination deferred. EXTREMITIES: Positive contractures of both hands. Positive left upper extremity AV fistula. Positive thrill. NEUROLOGIC: The patient is alert, awake, responsive, is able to move upper and lower extremity without assistance. Gait examination is not tested. PSYCHIATRIC: Examination negative for anxiety, depression. Negative for auditory or visual hallucination. Negative for suicidal or homicidal ideation. LABORATORY DATA: WBC 9.2, hemoglobin/hematocrit 9.4/29, platelet 156. Sodium 138, potassium 4, chloride 104, CO2 of 24, BUN 23, creatinine 6.5, glucose 70. Urine cultures; extended spectrum beta lactamase, Escherichia coli urinary tract infection. The patient seen by Infectious Disease and Nephrology. I was unable to see any Gastroenterology followup from yesterday. Surgical followup was noted. IMPRESSION: 1. Status post hypovolemic, hypotensive hemorrhagic shock. 2. Acute blood loss anemia. 3. Massive lower gastrointestinal bleeding with bright red blood per rectum. 4. Status post packed red blood cell transfusion x12. 5. Status post FFP transfusion x5 and status post platelet transfusion x1. 6. Colonic and cecal blood noted without active bleeding. 7. Sigmoid and descending colon diverticulosis. 8. Internal hemorrhoid. 9. Status post esophagogastroduodenoscopy and colonoscopy. 10. End-stage renal disease, hemodialysis dependent three times a week via the left upper extremity AV fistula. 11. History of recurrent gastrointestinal bleeding. 12. Transfusion-dependent anemia. 13. History of endocarditis. 14. Extended spectrum beta lactamase, Escherichia coli urinary tract infection. 15. Low-grade fever. 16. History of dilated cardiomyopathy and AICD implant. 17. Bilateral hand rheumatoid arthritis. 18. Gait dysfunction. 19. Deconditioning. 20. History of hypotension. 21. Secondary hyperparathyroidism with hyperphosphatemia and elevated parathyroid hormone level. PLAN: At present, the patient is still awaiting for transfer to [facility] for Interventional Gastroenterology service. At present, the patient will be continued on all the therapeutic intervention as per the MAR of today. The patient is on broad-spectrum IV antibiotic for ESBL, Escherichia coli urinary tract infection as per Infectious Disease recommendation. The patient is on consultation with Infectious Disease, Cardiology, Nephrology and Gastroenterology, Surgery. The patient's overall prognosis is guarded to poor. The patient has been updated about his condition. The patient is in agreement with the transfer to tertiary care facility for further diagnostic and therapeutic interventions. Time spent is more than 35 minutes. Geoffrey Thacker MD
[2018-06-24] MEDS ORDERED: Iron Sucrose 100 mg/5 ml Inj IVP ONE (09:00)
--- NOTE | 2018-06-24 12:58 | PN ---
DATE: 06/24/2018 SUBJECTIVE: The patient has not had a repeat bleed. PHYSICAL EXAMINATION: VITAL SIGNS: Stable. NECK: Negative JVD. LUNGS: Without rales. HEART: S1, S2. EXTREMITIES: Without edema. LABORATORY DATA: Hemoglobin is 9.6, which is unchanged. Chemistries are unchanged. IMPRESSION: 1. Status post lower gastrointestinal bleed. 2. Anemia. 3. End-stage renal disease. 4. Dilated cardiomyopathy. PLAN: Given these findings, the patient is so far hemodynamically stable and appears to have his bleeding controlled. Kamari Watt MD
[2018-06-24] MEDS: Multivitamin Vitamin B Complex (Nephro-Vite) Tab PO SCH (13:27)
--- NOTE | 2018-06-24 14:12 | CP.PCM.PN ---
Subjective - Date & Time of Evaluation Date of Evaluation: 06/24/18 Time of Evaluation: 07:00 - Subjective Subjective: GENERAL SURGERY PROGRESS NOTE FOR DR. CEDENO Patient seen and examined at bedside in the ICU. Per nurse, he had a nonbloody BM. Denies nausea or vomiting. Pt still awaiting transfer to [facility]. Objective - Vital Signs/Intake and Output Vital Signs (last 24 hours): Temp Pulse Resp BP Pulse Ox 98.5 F 83 24 105/63 100 06/23/18 16:00 06/24/18 05:45 06/24/18 04:00 06/24/18 04:00 06/24/18 04:00 Intake and Output: 06/24/18 06/24/18 06:59 18:59 Intake Total 50 Balance 50 - Medications Medications: Current Medications Acetaminophen (Tylenol 325mg Tab) 650 mg PO Q6H PRN PRN Reason: Pain, moderate (4-7) Last Admin: 06/18/18 21:10 Dose: 650 mg Amiodarone HCl (Cordarone) 200 mg PO DAILY [facility] Last Admin: 06/23/18 09:27 Dose: 200 mg Atorvastatin Calcium (Lipitor) 40 mg PO DIN [facility] Last Admin: 06/23/18 17:26 Dose: 40 mg Meropenem 250 mg/ Sodium (Chloride) 100 mls @ 100 mls/hr IVPB Q12H [facility]; Protocol Stop: 06/26/18 22:01 Last Admin: 06/23/18 21:05 Dose: 100 mls/hr Insulin Human Regular (Humulin R Low) 0 units SC ACHS [facility]; Protocol Last Admin: 06/23/18 21:10 Dose: Not Given Midodrine (Proamatine) 5 mg PO 0800,1200,1600 [facility] Last Admin: 06/23/18 17:26 Dose: 5 mg Pantoprazole Sodium (Protonix Ec Tab) 40 mg PO ACB [facility] Last Admin: 06/23/18 08:29 Dose: 40 mg Sevelamer HCl (Renagel) 800 mg PO BID [facility] Last Admin: 06/23/18 17:26 Dose: 800 mg Tamsulosin HCl (Flomax) 0.4 mg PO DAILY [facility] Last Admin: 06/23/18 09:27 Dose: 0.4 mg Vitamin B Complex/Vit C/Folic Acid (Nephro-Tyson) 1 tab PO DAILY [facility] Last Admin: 06/23/18 09:27 Dose: 1 tab - Labs Labs: 06/24/18 05:00 06/24/18 06:30 PT 13.7 SECONDS (9.4-12.5) H 06/20/18 08:15 INR 1.21 06/20/18 08:15 APTT 35.4 Seconds (26.9-38.3) 06/15/18 11:00 - Constitutional Appears: Non-toxic, No Acute Distress - Head Exam Head Exam: ATRAUMATIC, NORMAL INSPECTION - Respiratory Exam Respiratory Exam: NORMAL BREATHING PATTERN. absent: Respiratory Distress - Cardiovascular Exam Cardiovascular Exam: +S1, +S2 - GI/Abdominal Exam GI & Abdominal Exam: Soft. absent: Distended, Firm, Guarding, Rigid, Tenderness - Neurological Exam Neurological Exam: Alert, Awake, Oriented x3 - Psychiatric Exam Psychiatric exam: Normal Affect, Normal Mood - Skin Skin Exam: Dry, Normal Color Assessment and Plan - Assessment and Plan (Free Text) Assessment: 67yo M with GI bleed, likely small bowel etiology. Meckel scan negative. H&H stable. Plan: - Still awaiting bed at [facility] for possible capsule endoscopy/balloon assisted enteroscopy - Surgical intervention if positive findings on enteroscopy Further care as per primary team Discussed plan with Dr. Moy Cardenas PGY-4
--- NOTE | 2018-06-24 14:12 | CP.PCM.PN ---
<Quang Parker - Last Filed: 06/24/18 14:08> Subjective - Date & Time of Evaluation Date of Evaluation: 06/24/18 Time of Evaluation: 08:00 - Subjective Subjective: Quang Parker D.O. PGY-3, Internal Medicine, Infectious Disease Progress Note 67 year old male with a PMH of dilated cardiomyopathy s/p defibrillator, ESRD on HD M/W/F, DM, Arthritis, HTN and anemia of chronic disease/iron deficiency who is admitted with symptomatic anemia and bloody stool movement. Infectious disease consultation was requested for UTI. Patient was seen and examined at bedside. Pleasant as always. No acute complaints offered. Objective - Vital Signs/Intake and Output Vital Signs (last 24 hours): Temp Pulse Resp BP Pulse Ox 98.5 F 83 24 105/63 100 06/23/18 16:00 06/24/18 05:45 06/24/18 04:00 06/24/18 04:00 06/24/18 04:00 Intake and Output: 06/24/18 06/24/18 06:59 18:59 Intake Total 50 Balance 50 - Medications Medications: Current Medications Acetaminophen (Tylenol 325mg Tab) 650 mg PO Q6H PRN PRN Reason: Pain, moderate (4-7) Last Admin: 06/18/18 21:10 Dose: 650 mg Amiodarone HCl (Cordarone) 200 mg PO DAILY [facility] Last Admin: 06/23/18 09:27 Dose: 200 mg Atorvastatin Calcium (Lipitor) 40 mg PO DIN [facility] Last Admin: 06/23/18 17:26 Dose: 40 mg Meropenem 250 mg/ Sodium (Chloride) 100 mls @ 100 mls/hr IVPB Q12H [facility]; Protocol Stop: 06/26/18 22:01 Last Admin: 06/23/18 21:05 Dose: 100 mls/hr Insulin Human Regular (Humulin R Low) 0 units SC ACHS [facility]; Protocol Last Admin: 06/23/18 21:10 Dose: Not Given Midodrine (Proamatine) 5 mg PO 0800,1200,1600 [facility] Last Admin: 06/23/18 17:26 Dose: 5 mg Pantoprazole Sodium (Protonix Ec Tab) 40 mg PO ACB [facility] Last Admin: 06/23/18 08:29 Dose: 40 mg Sevelamer HCl (Renagel) 800 mg PO BID [facility] Last Admin: 06/23/18 17:26 Dose: 800 mg Tamsulosin HCl (Flomax) 0.4 mg PO DAILY [facility] Last Admin: 06/23/18 09:27 Dose: 0.4 mg Vitamin B Complex/Vit C/Folic Acid (Nephro-Tyson) 1 tab PO DAILY [facility] Last Admin: 06/23/18 09:27 Dose: 1 tab - Labs Labs: 06/24/18 05:00 06/24/18 06:30 PT 13.7 SECONDS (9.4-12.5) H 06/20/18 08:15 INR 1.21 06/20/18 08:15 APTT 35.4 Seconds (26.9-38.3) 06/15/18 11:00 - Constitutional Appears: Non-toxic, No Acute Distress - Head Exam Head Exam: ATRAUMATIC, NORMAL INSPECTION - Eye Exam Eye Exam: Normal appearance. absent: Scleral icterus - ENT Exam ENT Exam: Mucous Membranes Moist, Normal Exam - Neck Exam Neck exam: Positive for: Full Rom, Normal Inspection - Respiratory Exam Respiratory Exam: CTAB, no W/R/R - Cardiovascular Exam Cardiovascular Exam: RRR, +S1, +S2 - GI/Abdominal Exam GI & Abdominal Exam: Soft. absent: Distended, Tenderness - Exam Exam: mortensen in place with what appears to be pus output - Extremities Exam Extremities exam: LUE AVF with palpable thrill - Neurological Exam Neurological exam: Alert, Oriented x4 - Skin Skin Exam: Normal Color, Warm Assessment and Plan - Assessment and Plan (Free Text) Assessment: 67 year old male with a PMH of dilated cardiomyopathy s/p defibrillator, ESRD on HD M/W/F, DM, Arthritis, HTN and anemia of chronic disease/iron deficiency who is admitted with symptomatic anemia and bloody stool movement. Infectious disease consultation was requested for UTI. Plan: ESBL E. Coli cystitis/urinary tract infection Worsening anemia ESRD on HD M/W/F DM Arthritis HTN Anemia Dilated cardiomyopathy Mortensen with what appears to be nura pus Discussed nursing staff who is reaching out to nephrology Continue meropenem day 6 Surgery note reviewed and appreciated GI note reviewed and appreciated Repeat urine C&S pending We will follow with you Patient was seen and examined and case to be discussed with attending physician Thank you for the pleasure of participating in the care of this patient <Boghossian,Charlie - Last Filed: 06/24/18 16:25> Objective - Vital Signs/Intake and Output Vital Signs (last 24 hours): Temp Pulse Resp BP Pulse Ox 98.5 F 118 H 17 91/54 L 100 06/23/18 16:00 06/24/18 13:27 06/24/18 09:45 06/24/18 15:05 06/24/18 15:05 Intake and Output: 06/24/18 06/24/18 06:59 18:59 Intake Total 50 Balance 50 - Medications Medications: Current Medications Acetaminophen (Tylenol 325mg Tab) 650 mg PO Q6H PRN PRN Reason: Pain, moderate (4-7) Last Admin: 06/18/18 21:10 Dose: 650 mg Amiodarone HCl (Cordarone) 200 mg PO DAILY [facility] Last Admin: 06/24/18 13:27 Dose: 200 mg Atorvastatin Calcium (Lipitor) 40 mg PO DIN [facility] Last Admin: 06/24/18 16:10 Dose: 40 mg Meropenem 250 mg/ Sodium (Chloride) 100 mls @ 100 mls/hr IVPB Q12H [facility]; Protocol Stop: 06/26/18 22:01 Last Admin: 06/24/18 13:27 Dose: 100 mls/hr Insulin Human Regular (Humulin R Low) 0 units SC ACHS [facility]; Protocol Last Admin: 06/24/18 16:10 Dose: Not Given Midodrine (Proamatine) 5 mg PO 0800,1200,1600 [facility] Last Admin: 06/24/18 16:08 Dose: 5 mg Pantoprazole Sodium (Protonix Ec Tab) 40 mg PO ACB [facility] Last Admin: 06/24/18 07:30 Dose: 40 mg Sevelamer HCl (Renagel) 800 mg PO BID [facility] Last Admin: 06/24/18 10:00 Dose: 800 mg Tamsulosin HCl (Flomax) 0.4 mg PO DAILY [facility] Last Admin: 06/24/18 14:53 Dose: 0.4 mg Vitamin B Complex/Vit C/Folic Acid (Nephro-Tyson) 1 tab PO DAILY [facility] Last Admin: 06/24/18 13:27 Dose: 1 tab - Labs Labs: 06/24/18 05:00 06/24/18 06:30 PT 13.7 SECONDS (9.4-12.5) H 06/20/18 08:15 INR 1.21 06/20/18 08:15 APTT 35.4 Seconds (26.9-38.3) 06/15/18 11:00 Attending/Attestation - Attestation I have personally seen and examined this patient.: Yes I have fully participated in the care of the patient.: Yes I have reviewed all pertinent clinical information, including history, physical exam and plan: Yes
[2018-06-24] MEDS: Insulin Reg-LOW-Coverage SC SCH ×2 (14:45→16:10)
--- NOTE | 2018-06-24 20:22 | PN ---
DATE: 06/24/2018 SUBJECTIVE: The patient is seen lying in bed in the ICU. He appears to be in distress. He just had a Long catheter placed for urine collection. Almost 500 mL of gross, purulent urine was drained. PHYSICAL EXAMINATION: GENERAL: Elderly male lying in bed in the ICU. VITAL SIGNS: Blood pressure 105/63, heart rate 83, respiratory rate 24, temperature 98.5. HEENT: Normocephalic, atraumatic, positive pallor. NECK: Supple, no JVD. LUNGS: Bilateral equal air entry, no rales, no rhonchi. CARDIAC: S1, S2, regular rate and rhythm, no murmur, no rub. ABDOMEN: Obese, distended, soft, nontender, bowel sounds present. EXTREMITIES: No lower extremity edema. LABORATORY DATA: WBC 8.4, hemoglobin 9.6, hematocrit 29, platelets 183. Sodium 134, potassium 4.4, chloride 99, CO2 of 26, BUN 23, creatinine 6.4, glucose 85, calcium 8, phosphorus 4.6, magnesium 2. CURRENT MEDICATIONS: Cordarone 200, Flomax, insulin, Lipitor, meropenem 250 every 12 hours, ProAmatine 5 t.i.d., Protonix, Renagel, and Tylenol. ASSESSMENT: 1. Status post severe life-threatening gastrointestinal bleed, hemoglobin now stable. 2. Cardiomyopathy, decreased ejection fraction, automatic implantable cardioverter defibrillator. 3. Extended spectrum beta-lactamases in urine. 4. Non-insulin dependent diabetes mellitus. 5. End-stage renal disease. 6. Peripheral vascular disease. 7. Chronic hypotension. PLAN: 1. Follow up repeat urine culture. 2. The patient is still awaiting transfer to [facility] for balloon enteroscopy. 3. Dialysis today. 4. Monitor H and H. 5. Venofer 100 mg IV piggyback every dialysis x10. Grecia Young MD
[2018-06-25 07:35] LABS: BASO # 0.04 K/mm3 (0.0-2.0); BASO % 0.5 % (0.0-3.0); EOS # 0.4 (0.0-0.7); EOS % 4.5 % (1.5-5.0); HEMOGLOBIN 9.5 g/dL (14.0-18.0); LYMPH # 1.1 (1.2-3.4); LYMPH % 13.1 % (22.0-35.0); MEAN CELL VOLUME 92.4 fl (80.0-105.0); MEAN CORPUSCULAR HEMOGLOBIN 30.3 pg (25.0-35.0); MEAN CORPUSCULAR HGB CONC 32.8 g/dl (31.0-37.0); MEAN PLATELET VOLUME 9.2 fl (7.0-11.0); MONO # 0.7 (0.1-0.6); MONO % 8.1 % (1.0-6.0); RBC 3.14 10^6/uL (3.5-6.1); RED CELL DISTRIBUTION WIDTH 14.9 % (11.5-14.5); WHITE BLOOD COUNT 8.2 10^3/uL (4.5-11.0)
[2018-06-25] MEDS: Insulin Reg-LOW-Coverage SC SCH ×5 (07:44→22:11)
[2018-06-25 07:56] LABS: ALB/GLOB RATIO 0.8 (1.1-1.8); ALBUMIN 2.5 g/dL (3.0-4.8); BILIRUBIN,DIRECT 0.6 mg/dL (0.0-0.4); CALCIUM 7.9 mg/dL (8.4-10.5)
[2018-06-25] MEDS: Pantoprazole 40 mg EC Tab PO SCH (09:06)
[2018-06-25] MEDS: Multivitamin Vitamin B Complex (Nephro-Vite) Tab PO SCH (09:06)
--- NOTE | 2018-06-25 11:26 | PN ---
DATE: 06/25/2018 SUBJECTIVE: The patient is currently seen on 5R. He is entirely comfortable. He has had no further GI bleeding of the last several days. He has been maintaining a hemoglobin of a mid 9 range, his last hemoglobin was 9.5. He continues on IV antibiotic therapy. ESBL, E. coli in his urine. Transfer to [facility] for further GI workup and evaluation. He is in progress, but on hold because of the ESBL, E. coli urinary tract infection and the need for isolation at their hospital. The patient had an uneventful dialysis treatment yesterday with removal of 2 liters of fluid. MEDICATIONS: Medication list reviewed. The patient is currently on Amiodarone, Flomax, insulin, Lipitor, meropenem, Nephro-Tyson, ProAmatine, Protonix, Renagel and Tylenol p.r.n. OBJECTIVE: INTAKE/OUTPUT: Intake is 600. Output is 700+ with dialysis. VITAL SIGNS: Blood pressure is ranging from 91-152 systolic, diastolic ranging from 54-117; heart rate is 73, respiratory rate is 17. Pulse ox is 100%. Temperature is 98.5. HEENT: Normocephalic and atraumatic. Conjunctiva remain pale. Sclerae nonicteric. NECK: Supple. No neck vein distention. CHEST: Clear to auscultation and percussion. No rales, rhonchi, or wheezing. CARDIOVASCULAR: Shows a regular rate, rhythm with MR/TR/PI, positive AICD, no rubs or gallops. ABDOMEN: Soft. Bowel sounds normal. No rebound, guarding or masses. EXTREMITIES: Show no lower extremity cyanosis, clubbing or edema. He has a working AV fistula to left upper extremity. Positive thrill. Positive bruit. LABORATORY DATA AND IMAGING: CBC from today, hemoglobin stable 9.5, white blood cell count 8.2 with platelet count of 189,000. Chemistries from today showed a BUN of 17, creatinine 5.0 this is the day after dialysis. Potassium is 4.1, calcium is 7.9. Corrects to normal for an albumin of 2.5, phosphorous is excellent at 4.0 with a magnesium of 1.9. Microbiology; urine cultures are positive for ESBL E. coli. ASSESSMENT: 1. Severe life-threatening gastrointestinal bleed. The patient received a total 12 units of packed red blood cells. The patient was scheduled for transfer to [facility] for further gastrointestinal evaluation workup because of the positive extended-spectrum beta-lactamases Escherichia coli in the urine. He needs some isolation room so the transfer has been placed on hold at this point in time. They are awaiting for the appropriate room for transfer. 2. History of severe anemia. The patient's hemoglobin is stabilized over the last 72 hours. Apparently no further gastrointestinal bleeding at this point in time. 3. History of end-stage renal disease, continue Wednesday, Wednesday, Wednesday on dialysis. The patient is dialyzing without anticoagulation. 4. History of dilated cardiomyopathy ejection fraction 25% to 30% with automatic implantable cardioverter-defibrillator, mitral regurgitation, tricuspid regurgitation with pulmonic insufficiency. 5. History of non-insulin dependent diabetes mellitus. The patient is being maintained on diet therapy alone. 6. History of secondary hyperparathyroidism. Phosphorous level is excellent at 4.0. He continues on renal diet and binder therapy. 7. Escherichia coli urinary tract infection extended-spectrum beta-lactamases being treated with antibiotics. Being followed by Infectious Disease. PLAN: 1. Continue three times a week dialysis, no plans for heparin. 2. Once the patient obtains an isolation bed at [facility], he likely will be transfer for further GI workup. Alternatively once he complete the antibiotics, he can be transferred. 3. Further management is for as GI bleeding as per GI. 4. Continue present medical therapy. 5. Next hemodialysis scheduled for 06/27/2018. Chidi Ramirez MD MTDD
--- NOTE | 2018-06-25 12:41 | CP.PCM.PN ---
Subjective - Date & Time of Evaluation Date of Evaluation: 06/25/18 Time of Evaluation: 11:00 - Subjective Subjective: Patient has no abdominal pain, no dysuria for now, no fevers, not in distress. Objective - Vital Signs/Intake and Output Vital Signs (last 24 hours): Temp Pulse Resp BP Pulse Ox 98.5 F 118 H 17 91/54 L 100 06/23/18 16:00 06/25/18 06:00 06/24/18 09:45 06/24/18 15:05 06/24/18 15:05 Intake and Output: 06/25/18 06/25/18 06:59 18:59 Output Total 100 Balance -100 - Medications Medications: Current Medications Acetaminophen (Tylenol 325mg Tab) 650 mg PO Q6H PRN PRN Reason: Pain, moderate (4-7) Last Admin: 06/18/18 21:10 Dose: 650 mg Amiodarone HCl (Cordarone) 200 mg PO DAILY [facility] Last Admin: 06/24/18 13:27 Dose: 200 mg Atorvastatin Calcium (Lipitor) 40 mg PO DIN [facility] Last Admin: 06/24/18 16:10 Dose: 40 mg Meropenem 250 mg/ Sodium (Chloride) 100 mls @ 100 mls/hr IVPB Q12H [facility]; Protocol Stop: 06/26/18 22:01 Last Admin: 06/25/18 09:05 Dose: 100 mls/hr Insulin Human Regular (Humulin R Low) 0 units SC ACHS [facility]; Protocol Last Admin: 06/25/18 07:56 Dose: Not Given Midodrine (Proamatine) 5 mg PO 0800,1200,1600 [facility] Last Admin: 06/25/18 09:05 Dose: 5 mg Pantoprazole Sodium (Protonix Ec Tab) 40 mg PO ACB [facility] Last Admin: 06/25/18 09:06 Dose: 40 mg Sevelamer HCl (Renagel) 800 mg PO BID [facility] Last Admin: 06/25/18 09:06 Dose: 800 mg Tamsulosin HCl (Flomax) 0.4 mg PO DAILY [facility] Last Admin: 06/25/18 09:06 Dose: 0.4 mg Vitamin B Complex/Vit C/Folic Acid (Nephro-Tyson) 1 tab PO DAILY [facility] Last Admin: 06/25/18 09:06 Dose: 1 tab - Labs Labs: 06/25/18 06:10 06/25/18 06:10 PT 13.7 SECONDS (9.4-12.5) H 06/20/18 08:15 INR 1.21 06/20/18 08:15 APTT 35.4 Seconds (26.9-38.3) 06/15/18 11:00 - Constitutional Appears: Non-toxic, Chronically Ill - Head Exam Head Exam: NORMAL INSPECTION - Respiratory Exam Respiratory Exam: Decreased Breath Sounds - Cardiovascular Exam Cardiovascular Exam: +S1, +S2 - GI/Abdominal Exam GI & Abdominal Exam: Soft. absent: Tenderness Assessment and Plan - Assessment and Plan (Free Text) Plan: Assessment UTI with ESBL E. coli history of Sepsis due to ESBL E. coli bacteremia, R/O pacemaker infection (mobile structures seen on leads on RASHAUN, possible vegetations) history of infected right foot ulcers with Serratia chronic CHF chronic renal failure on dialysis DM morbid obesity with BMI 40 obstructive sleep apnea on CPAP sciatica HTN S/P left foot debridement (2015) Plan continue Merrem day 7 and will follow up repeat urinalysis and urine cx previously completed at least 4-6 weeks of Merrem for the previous bacteremia will continue to monitor clinically
--- NOTE | 2018-06-25 15:05 | CP.PCM.PN ---
<Joey Loyola - Last Filed: 06/25/18 15:01> Subjective - Date & Time of Evaluation Date of Evaluation: 06/25/18 Time of Evaluation: 15:01 - Subjective Subjective: NO complaints. No acute changes. Patient planning to transfer to tertiary center. No bleeding. Objective - Vital Signs/Intake and Output Vital Signs (last 24 hours): Temp Pulse Resp BP Pulse Ox 98.1 F 72 20 101/64 100 06/25/18 06:00 06/25/18 11:22 06/25/18 06:00 06/25/18 11:22 06/25/18 06:00 Intake and Output: 06/25/18 06/25/18 06:59 18:59 Intake Total 600 Output Total 100 Balance -100 600 - Medications Medications: Current Medications Acetaminophen (Tylenol 325mg Tab) 650 mg PO Q6H PRN PRN Reason: Pain, moderate (4-7) Last Admin: 06/18/18 21:10 Dose: 650 mg Amiodarone HCl (Cordarone) 200 mg PO DAILY [facility] Last Admin: 06/25/18 11:22 Dose: 200 mg Atorvastatin Calcium (Lipitor) 40 mg PO DIN [facility] Last Admin: 06/24/18 16:10 Dose: 40 mg Meropenem 250 mg/ Sodium (Chloride) 100 mls @ 100 mls/hr IVPB Q12H [facility]; Protocol Stop: 06/26/18 22:01 Last Admin: 06/25/18 09:05 Dose: 100 mls/hr Insulin Human Regular (Humulin R Low) 0 units SC ACHS [facility]; Protocol Last Admin: 06/25/18 11:44 Dose: Not Given Midodrine (Proamatine) 5 mg PO 0800,1200,1600 [facility] Last Admin: 06/25/18 09:05 Dose: 5 mg Pantoprazole Sodium (Protonix Ec Tab) 40 mg PO ACB [facility] Last Admin: 06/25/18 09:06 Dose: 40 mg Sevelamer HCl (Renagel) 800 mg PO BID [facility] Last Admin: 06/25/18 09:06 Dose: 800 mg Tamsulosin HCl (Flomax) 0.4 mg PO DAILY [facility] Last Admin: 06/25/18 09:06 Dose: 0.4 mg Vitamin B Complex/Vit C/Folic Acid (Nephro-Tyson) 1 tab PO DAILY [facility] Last Admin: 06/25/18 09:06 Dose: 1 tab - Labs Labs: 06/25/18 06:10 06/25/18 06:10 PT 13.7 SECONDS (9.4-12.5) H 06/20/18 08:15 INR 1.21 06/20/18 08:15 APTT 35.4 Seconds (26.9-38.3) 06/15/18 11:00 - Constitutional Appears: Non-toxic, No Acute Distress - Head Exam Head Exam: ATRAUMATIC, NORMAL INSPECTION - Respiratory Exam Respiratory Exam: Clear to Ausculation Bilateral, NORMAL BREATHING PATTERN - Cardiovascular Exam Cardiovascular Exam: REGULAR RHYTHM, +S1, +S2 - GI/Abdominal Exam GI & Abdominal Exam: Soft, Normal Bowel Sounds. absent: Tenderness - Neurological Exam Neurological Exam: Alert, Awake, Oriented x3 - Psychiatric Exam Psychiatric exam: Normal Affect, Normal Mood - Skin Skin Exam: Dry, Normal Color Assessment and Plan - Assessment and Plan (Free Text) Assessment: 67 year old male with a PMH of dilated cardiomyopathy (EF 22%) s/p defibrillator, ESRD on HD MWF, DM2, Arthritis, HTN and Anemia of chronic disease/iron deficiency who is admitted with symptomatic anemia and bloody stool movement. GI is consulted for anemia, and bright red blood per rectum. s/p EGD and 2 colonoscopies which did not reveal site of active bleeding, but it seems the source was from the small intestine. H/H and BP stable now. Surgery team is following, but no operative procedures are recommended at this time. Meckel's scan did not show bleeding. Downgraded from ICU to telemetry monitoring. Patient is pending transfer to [facility] pending bed availability. ESBL noted in the urine. Plan: - abx per ID - cont contact isolation - requested repeat urine culture - mortensen inserted - out of bed to chair - monitor VS - monitor H/H - to transfer to [facility] pending bed availability for evaluation of small intestine bleeding; we do not have capacity for such intervention at [facility] - Patient is at risk for rebleeding which could complicate his hospital stay and he would benefit from immediate transfer to center w/ higher level of car - Contacted Dr. Thacker and his answering service with no response; discussed with resident - cont CLD - further recs per Dr. Wynn Case was reviewed and discussed with Dr. Wynn <Foreign Wynn Genia - Last Filed: 06/25/18 16:52> Objective - Vital Signs/Intake and Output Vital Signs (last 24 hours): Temp Pulse Resp BP Pulse Ox 98.3 F 71 20 100/63 99 06/25/18 14:00 06/25/18 14:00 06/25/18 14:00 06/25/18 14:00 06/25/18 14:00 Intake and Output: 06/25/18 06/25/18 06:59 18:59 Intake Total 600 Output Total 100 Balance -100 600 - Medications Medications: Current Medications Acetaminophen (Tylenol 325mg Tab) 650 mg PO Q6H PRN PRN Reason: Pain, moderate (4-7) Last Admin: 06/18/18 21:10 Dose: 650 mg Amiodarone HCl (Cordarone) 200 mg PO DAILY [facility] Last Admin: 06/25/18 11:22 Dose: 200 mg Atorvastatin Calcium (Lipitor) 40 mg PO DIN [facility] Last Admin: 06/24/18 16:10 Dose: 40 mg Meropenem 250 mg/ Sodium (Chloride) 100 mls @ 100 mls/hr IVPB Q12H [facility]; Protocol Stop: 06/26/18 22:01 Last Admin: 06/25/18 09:05 Dose: 100 mls/hr Insulin Human Regular (Humulin R Low) 0 units SC ACHS [facility]; Protocol Last Admin: 06/25/18 16:40 Dose: Not Given Midodrine (Proamatine) 5 mg PO 0800,1200,1600 [facility] Last Admin: 06/25/18 15:59 Dose: 5 mg Pantoprazole Sodium (Protonix Ec Tab) 40 mg PO ACB [facility] Last Admin: 06/25/18 09:06 Dose: 40 mg Sevelamer HCl (Renagel) 800 mg PO BID [facility] Last Admin: 06/25/18 09:06 Dose: 800 mg Tamsulosin HCl (Flomax) 0.4 mg PO DAILY [facility] Last Admin: 06/25/18 09:06 Dose: 0.4 mg Vitamin B Complex/Vit C/Folic Acid (Nephro-Tyson) 1 tab PO DAILY [facility] Last Admin: 06/25/18 09:06 Dose: 1 tab - Labs Labs: 06/25/18 06:10 06/25/18 06:10 PT 13.7 SECONDS (9.4-12.5) H 06/20/18 08:15 INR 1.21 06/20/18 08:15 APTT 35.4 Seconds (26.9-38.3) 06/15/18 11:00 Attending/Attestation - Attestation I have personally seen and examined this patient.: Yes I have fully participated in the care of the patient.: Yes I have reviewed all pertinent clinical information, including history, physical exam and plan: Yes Notes (Text): This patient was seen and evaluated the pneumonia along with the GI fellow. This is an addendum to the progress note dictated by the fellow. No further episodes of bleeding per rectum or melena. No complaints of abdominal pain. Hemoglobin has been stable. Patient is on isolation for ESBL UTI. Patient was awaiting for transfer to [facility]. Patient did have large GI bleeding probable small bowel other differential is colonic AVMs or diverticulosis. Given the gravity of the severe bleeding and multiple comorbidities it is reasonable to consider inpatient evaluation and management which includes capsule endoscopy and balloon assisted enteroscopy. 06/25/18 16:49
[2018-06-26 07:47] LABS: BASO # 0.05 K/mm3 (0.0-2.0); BASO % 0.6 % (0.0-3.0); EOS # 0.5 (0.0-0.7); EOS % 5.3 % (1.5-5.0); HEMOGLOBIN 8.8 g/dL (14.0-18.0); LYMPH # 0.9 (1.2-3.4); LYMPH % 10.9 % (22.0-35.0); MEAN CELL VOLUME 92.5 fl (80.0-105.0); MEAN CORPUSCULAR HEMOGLOBIN 29.8 pg (25.0-35.0); MEAN CORPUSCULAR HGB CONC 32.2 g/dl (31.0-37.0); MEAN PLATELET VOLUME 9.1 fl (7.0-11.0); MONO # 0.7 (0.1-0.6); MONO % 8.5 % (1.0-6.0); RBC 2.95 10^6/uL (3.5-6.1); RED CELL DISTRIBUTION WIDTH 14.7 % (11.5-14.5); WHITE BLOOD COUNT 8.4 10^3/uL (4.5-11.0)
[2018-06-26] MEDS: Insulin Reg-LOW-Coverage SC SCH ×4 (08:10→22:18)
[2018-06-26] MEDS: Pantoprazole 40 mg EC Tab PO SCH (08:13)
[2018-06-26 08:14] LABS: ALB/GLOB RATIO 0.7 (1.1-1.8); ALBUMIN 2.3 g/dL (3.0-4.8); BILIRUBIN,DIRECT 0.5 mg/dL (0.0-0.4); CALCIUM 7.5 mg/dL (8.4-10.5)
[2018-06-26] MEDS: Multivitamin Vitamin B Complex (Nephro-Vite) Tab PO SCH (10:52)
--- NOTE | 2018-06-26 11:04 | CP.PCM.PN ---
Subjective - Date & Time of Evaluation Date of Evaluation: 06/26/18 Time of Evaluation: 10:00 - Subjective Subjective: Not in distress, no fevers. Objective - Vital Signs/Intake and Output Vital Signs (last 24 hours): Temp Pulse Resp BP Pulse Ox 98.1 F 72 20 101/64 100 06/25/18 06:00 06/25/18 11:22 06/25/18 06:00 06/25/18 11:22 06/25/18 06:00 Intake and Output: 06/25/18 06/25/18 06:59 18:59 Intake Total 600 Output Total 100 Balance -100 600 - Medications Medications: Current Medications Acetaminophen (Tylenol 325mg Tab) 650 mg PO Q6H PRN PRN Reason: Pain, moderate (4-7) Last Admin: 06/18/18 21:10 Dose: 650 mg Amiodarone HCl (Cordarone) 200 mg PO DAILY [facility] Last Admin: 06/25/18 11:22 Dose: 200 mg Atorvastatin Calcium (Lipitor) 40 mg PO DIN [facility] Last Admin: 06/24/18 16:10 Dose: 40 mg Meropenem 250 mg/ Sodium (Chloride) 100 mls @ 100 mls/hr IVPB Q12H [facility]; P rotocol Stop: 06/26/18 22:01 Last Admin: 06/25/18 09:05 Dose: 100 mls/hr Insulin Human Regular (Humulin R Low) 0 units SC ACHS [facility]; Protocol Last Admin: 06/25/18 11:44 Dose: Not Given Midodrine (Proamatine) 5 mg PO 0800,1200,1600 [facility] Last Admin: 06/25/18 09:05 Dose: 5 mg Pantoprazole Sodium (Protonix Ec Tab) 40 mg PO ACB [facility] Last Admin: 06/25/18 09:06 Dose: 40 mg Sevelamer HCl (Renagel) 800 mg PO BID [facility] Last Admin: 06/25/18 09:06 Dose: 800 mg Tamsulosin HCl (Flomax) 0.4 mg PO DAILY [facility] Last Admin: 06/25/18 09:06 Dose: 0.4 mg Vitamin B Complex/Vit C/Folic Acid (Nephro-Tyson) 1 tab PO DAILY [facility] Last Admin: 06/25/18 09:06 Dose: 1 tab - Labs Labs: 06/25/18 06:10 06/25/18 06:10 PT 13.7 SECONDS (9.4-12.5) H 06/20/18 08:15 INR 1.21 06/20/18 08:15 APTT 35.4 Seconds (26.9-38.3) 06/15/18 11:00 - Constitutional Appears: Chronically Ill - Head Exam Head Exam: NORMAL INSPECTION - Respiratory Exam Respiratory Exam: Decreased Breath Sounds - Cardiovascular Exam Cardiovascular Exam: +S1, +S2 - GI/Abdominal Exam GI & Abdominal Exam: Soft. absent: Tenderness Assessment and Plan - Assessment and Plan (Free Text) Plan: Assessment UTI with ESBL E. coli history of Sepsis due to ESBL E. coli bacteremia, R/O pacemaker infection (mobile structures seen on leads on RASHAUN, possible vegetations) history of infected right foot ulcers with Serratia chronic CHF chronic renal failure on dialysis DM morbid obesity with BMI 40 obstructive sleep apnea on CPAP sciatica HTN S/P left foot debridement (2015) Plan continue Merrem day 8 and will follow up repeat urinalysis and urine cx previously completed at least 4-6 weeks of Merrem for the previous bacteremia will continue to monitor clinically
--- NOTE | 2018-06-26 14:50 | PN ---
DATE: 06/26/2018 SUBJECTIVE: The patient is currently seen sitting up in a chair in his room. He is currently brushing his teeth. He has has no further GI bleeding. His hemoglobin is drifting slightly lower, it is 8.8 today down from 9.5. No active bleeding again. The patient is awaiting transfer to [facility] for further evaluation of his GI bleeding. The patient continues on meropenem for his ESBL E. coli urinary tract infection. MEDICATIONS: Medication list reviewed. The patient is currently on amiodarone, Flomax, sliding scale insulin, Lipitor, meropenem, Nephro-Tyson, ProAmatine, Protonix, Renagel and Tylenol p.r.n. OBJECTIVE: INTAKE/OUTPUT: Intake is 960 and output is not charted. VITAL SIGNS: Blood pressure 109/68, temperature 97.9, respiratory rate of 16 with a pulse of 68. HEENT: Shows him to be normocephalic and atraumatic. Conjunctivae are pale. Sclerae are nonicteric. NECK: Supple. No neck vein distention. CHEST: Clear to auscultation and percussion. No rales, rhonchi or wheezing. CARDIOVASCULAR: Shows regular rate and rhythm with MR/TR/PI. Positive AICD. No rubs or gallops. ABDOMEN: Soft. Bowel sounds normal without rebound, guarding or masses. EXTREMITIES: Show no lower extremity cyanosis, clubbing or edema. He has a working AV fistula in the left upper extremity. LABORATORY DATA AND IMAGING: CBC today; white blood cell count 8.4, hemoglobin 8.8 with a platelet count of 166,000. Chemistry showed BUN of 22 with a creatinine of 6.5 and chloride of 96. Calcium is 7.5, corrects to normal for an albumin of 2.3, phosphorus is controlled at 4.5 with a magnesium level of 1.9. Microbiology urine is positive for E. coli ESBL. I would followup urine showing Gram-negative ct. Final isolation and sensitivity are pending. ASSESSMENT: Severe life-threatening gastrointestinal bleed, the patient received a total of 12 units of packed red blood cells. He is awaiting transfer to [facility] for further gastrointestinal evaluation. Because of his extended-spectrum beta lactamase Escherichia coli in urine, the plans for transfer have been delayed. 1. History of severe anemia. Continue to monitor hemoglobins closely. Hemoglobin has drifted slightly down, it went to 8.8 from 9.5. Continue to monitor any further downward trend and transfuse accordingly. 2. End-stage renal disease, the patient is scheduled for dialysis Wednesday, Wednesday and Wednesday. Next dialysis will be tomorrow. He is dialyzing without any anticoagulation. He is heparin free. 3. Dilated cardiomyopathy, ejection fraction 25-30% with automatic implantable cardioverter-defibrillator with mild valvular heart disease MR/TR/PI. 4. History of noninsulin-dependent diabetes mellitus, the patient is on diet therapy alone with sliding scale insulin. 5. History of secondary hyperparathyroidism. Phosphorus level is excellent at 4.5 controlled with renal diet and binder therapy. 6. Escherichia coli urinary tract infection with repeat urine cultures positive for Gram-negative rods. These sensitivities and isolation are pending. PLAN: 1. Continue Wednesday, Wednesday, Wednesday dialysis. 2. Transfuse the patient on an as-needed basis. 3. Further GI workup at [facility] pending transfer. 4. Monitor urine cultures and decision as per appropriate antibiotic therapy as per Infectious Disease. Chidi Ramirez MD MTDD
[2018-06-26 15:33] LABS: URINE BILIRUBIN MODERATE (NEGATIVE); URINE BLOOD LARGE (NEGATIVE); URINE GLUCOSE (UA) 100 mg/dL (NEGATIVE); URINE LEUKOCYTE ESTERASE MODERATE Leu/uL (NEGATIVE); URINE PROTEIN >=300 mg/dL (<30 mg/dL)
[2018-06-26 15:35] LABS: URINE APPEARANCE CLOUDY (CLEAR); URINE COLOR RED (YELLOW)
[2018-06-26 15:44] LABS: URINE EPITHELIAL CELLS MANY /hpf (0-5); URINE RBC TNTC /hpf (0-2)
[2018-06-26 15:45] LABS: URINE AMORPHOUS SEDIMENT SMALL /hpf
--- NOTE | 2018-06-26 17:19 | CP.PCM.PN ---
<Joey Loyola - Last Filed: 06/26/18 17:16> Subjective - Date & Time of Evaluation Date of Evaluation: 06/26/18 Time of Evaluation: 17:16 - Subjective Subjective: He denies bleeding. Nursing reports that patient may be leaving for [place] today. No other complaints. He is sitting up in his chair watching television comfortably. Objective - Vital Signs/Intake and Output Vital Signs (last 24 hours): Temp Pulse Resp BP Pulse Ox 98.2 F 64 18 106/68 100 06/26/18 15:12 06/26/18 15:12 06/26/18 15:12 06/26/18 15:12 06/26/18 14:00 Intake and Output: 06/26/18 06/26/18 06:59 18:59 Intake Total 360 1150 Output Total 0 Balance 360 1150 - Medications Medications: Current Medications Acetaminophen (Tylenol 325mg Tab) 650 mg PO Q6H PRN PRN Reason: Pain, moderate (4-7) Last Admin: 06/18/18 21:10 Dose: 650 mg Amiodarone HCl (Cordarone) 200 mg PO DAILY COUNT INCLUDES THE [facility] Last Admin: 06/26/18 10:51 Dose: 200 mg Atorvastatin Calcium (Lipitor) 40 mg PO DIN COUNT INCLUDES THE [facility] Last Admin: 06/25/18 17:49 Dose: 40 mg Meropenem 250 mg/ Sodium (Chloride) 100 mls @ 100 mls/hr IVPB Q12H JAVIER; Protocol Stop: 06/26/18 22:01 Last Admin: 06/26/18 10:52 Dose: 100 mls/hr Insulin Human Regular (Humulin R Low) 0 units SC ACHS COUNT INCLUDES THE [facility]; Protocol Last Admin: 06/26/18 12:13 Dose: Not Given Midodrine (Proamatine) 5 mg PO 0800,1200,1600 COUNT INCLUDES THE [facility] Last Admin: 06/26/18 12:16 Dose: 5 mg Pantoprazole Sodium (Protonix Ec Tab) 40 mg PO ACB COUNT INCLUDES THE [facility] Last Admin: 06/26/18 08:13 Dose: 40 mg Sevelamer HCl (Renagel) 800 mg PO BID COUNT INCLUDES THE [facility] Last Admin: 06/26/18 10:52 Dose: 800 mg Tamsulosin HCl (Flomax) 0.4 mg PO DAILY COUNT INCLUDES THE [facility] Last Admin: 06/26/18 10:51 Dose: 0.4 mg Vitamin B Complex/Vit C/Folic Acid (Nephro-Tyson) 1 tab PO DAILY J[facility] Last Admin: 06/26/18 10:52 Dose: 1 tab - Labs Labs: 06/26/18 06:30 06/26/18 06:30 PT 13.7 SECONDS (9.4-12.5) H 06/20/18 08:15 INR 1.21 06/20/18 08:15 APTT 35.4 Seconds (26.9-38.3) 06/15/18 11:00 - Constitutional Appears: Non-toxic, No Acute Distress - Respiratory Exam Respiratory Exam: Clear to Ausculation Bilateral, NORMAL BREATHING PATTERN - Cardiovascular Exam Cardiovascular Exam: REGULAR RHYTHM, +S1, +S2 - GI/Abdominal Exam GI & Abdominal Exam: Soft, Normal Bowel Sounds. absent: Tenderness - Neurological Exam Neurological Exam: Alert, Awake, Oriented x3 - Psychiatric Exam Psychiatric exam: Normal Affect, Normal Mood - Skin Skin Exam: Dry, Warm Assessment and Plan - Assessment and Plan (Free Text) Assessment: 67 year old male with a PMH of dilated cardiomyopathy (EF 22%) s/p defibrillator, ESRD on HD MWF, DM2, Arthritis, HTN and Anemia of chronic disease/iron deficiency who is admitted with symptomatic anemia and bloody stool movement. GI is consulted for anemia, and bright red blood per rectum. s/p EGD and 2 colonoscopies which did not reveal site of active bleeding, but it seems the source was from the small intestine. H/H and BP stable now. Surgery team is following, but no operative procedures are recommended at this time. Meckel's scan did not show bleeding. Downgraded from ICU to telemetry monitoring. Patient is pending transfer to [facility] pending bed availability. ESBL noted in the urine. Plan: - abx per ID - mortensen inserted - out of bed to chair - monitor VS - monitor H/H - to transfer to [facility] pending bed availability for evaluation of small intestine bleeding; we do not have capacity for such intervention at [facility] [place] - Patient is at risk for rebleeding which could complicate his hospital stay and he would benefit from immediate transfer to center w/ higher level of car - Contacted Dr. Thacker and his answering service with no response; discussed with resident - cont CLD - further recs per Dr. Wynn Case was reviewed and discussed with Dr. Wynn <Foreign Wynn V - Last Filed: 06/27/18 00:28> Objective - Vital Signs/Intake and Output Vital Signs (last 24 hours): Temp Pulse Resp BP Pulse Ox 98.5 F 71 18 118/75 98 06/26/18 22:51 06/26/18 22:51 06/26/18 22:51 06/26/18 22:51 06/26/18 22:51 Intake and Output: 06/26/18 06/27/18 18:59 06:59 Intake Total 1940 640 Output Total 25 Balance 1940 615 - Medications Medications: Current Medications Acetaminophen (Tylenol 325mg Tab) 650 mg PO Q6H PRN PRN Reason: Pain, moderate (4-7) Last Admin: 06/18/18 21:10 Dose: 650 mg Amiodarone HCl (Cordarone) 200 mg PO DAILY COUNT INCLUDES THE [facility] Last Admin: 06/26/18 10:51 Dose: 200 mg Atorvastatin Calcium (Lipitor) 40 mg PO DIN COUNT INCLUDES THE [facility] Last Admin: 06/26/18 17:24 Dose: 40 mg Insulin Human Regular (Humulin R Low) 0 units SC [facility]; Protocol Last Admin: 06/26/18 22:18 Dose: Not Given Midodrine (Proamatine) 5 mg PO 0800,1200,1600 COUNT INCLUDES THE [facility] Last Admin: 06/26/18 17:24 Dose: 5 mg Pantoprazole Sodium (Protonix Ec Tab) 40 mg PO ACB COUNT INCLUDES THE [facility] Last Admin: 06/26/18 08:13 Dose: 40 mg Sevelamer HCl (Renagel) 800 mg PO BID COUNT INCLUDES THE [facility] Last Admin: 06/26/18 17:24 Dose: 800 mg Tamsulosin HCl (Flomax) 0.4 mg PO DAILY COUNT INCLUDES THE [facility] Last Admin: 06/26/18 10:51 Dose: 0.4 mg Vitamin B Complex/Vit C/Folic Acid (Nephro-Tyson) 1 tab PO DAILY COUNT INCLUDES THE [facility] Last Admin: 06/26/18 10:52 Dose: 1 tab - Labs Labs: 06/26/18 06:30 06/26/18 06:30 PT 13.7 SECONDS (9.4-12.5) H 06/20/18 08:15 INR 1.21 06/20/18 08:15 APTT 35.4 Seconds (26.9-38.3) 06/15/18 11:00 Attending/Attestation - Attestation I have personally seen and examined this patient.: Yes I have fully participated in the care of the patient.: Yes I have reviewed all pertinent clinical information, including history, physical exam and plan: Yes Notes (Text): This is an addendum to the progress note dictated by the fellow. The patient was seen and evaluated along with the fellow here earlier today. Still awaiting for the bed at the [facility] there was at the hospital. Patient was receiving 1 unit of PRBC close follow-up of the hemoglobin hematocrit no obvious melena or GI bleeding now. 06/27/18 00:24
--- NOTE | 2018-06-27 07:48 | CP.PCM.PN ---
Subjective - Date & Time of Evaluation Date of Evaluation: 06/27/18 Time of Evaluation: 07:07 - Subjective Subjective: Dl Santos PGY2 IM Progress Note for Dr. Thacker Patient was seen and examined at bedside. He denies any further rectal bleeding. Pending transfer to [facility]. Objective - Vital Signs/Intake and Output Vital Signs (last 24 hours): Temp Pulse Resp BP Pulse Ox 98.5 F 71 18 118/75 98 06/26/18 22:51 06/26/18 22:51 06/26/18 22:51 06/26/18 22:51 06/26/18 22:51 Intake and Output: 06/27/18 06/27/18 06:59 18:59 Intake Total 880 Output Total 50 Balance 830 - Medications Medications: Current Medications Acetaminophen (Tylenol 325mg Tab) 650 mg PO Q6H PRN PRN Reason: Pain, moderate (4-7) Last Admin: 06/18/18 21:10 Dose: 650 mg Amiodarone HCl (Cordarone) 200 mg PO DAILY [facility] Last Admin: 06/26/18 10:51 Dose: 200 mg Atorvastatin Calcium (Lipitor) 40 mg PO DIN [facility] Last Admin: 06/26/18 17:24 Dose: 40 mg Insulin Human Regular (Humulin R Low) [address] [facility]; Protocol Last Admin: 06/26/18 22:18 Dose: Not Given Iron Sucrose (Venofer) 100 mg IVP ONCE ONE Stop: 06/27/18 09:01 Midodrine (Proamatine) 5 mg PO 0800,1200,1600 [facility] Last Admin: 06/26/18 17:24 Dose: 5 mg Pantoprazole Sodium (Protonix Ec Tab) 40 mg PO ACB [facility] Last Admin: 06/26/18 08:13 Dose: 40 mg Sevelamer HCl (Renagel) 800 mg PO BID [facility] Last Admin: 06/26/18 17:24 Dose: 800 mg Tamsulosin HCl (Flomax) 0.4 mg PO DAILY [facility] Last Admin: 06/26/18 10:51 Dose: 0.4 mg Vitamin B Complex/Vit C/Folic Acid (Nephro-Tyson) 1 tab PO DAILY [facility] Last Admin: 06/26/18 10:52 Dose: 1 tab - Labs Labs: 06/26/18 06:30 06/26/18 06:30 PT 13.7 SECONDS (9.4-12.5) H 06/20/18 08:15 INR 1.21 06/20/18 08:15 APTT 35.4 Seconds (26.9-38.3) 06/15/18 11:00 - Constitutional Appears: Well, Non-toxic, No Acute Distress - Head Exam Head Exam: ATRAUMATIC, NORMAL INSPECTION, NORMOCEPHALIC - Eye Exam Eye Exam: EOMI, Normal appearance, PERRL Pupil Exam: NORMAL ACCOMODATION, PERRL - ENT Exam ENT Exam: Mucous Membranes Moist, Normal Exam - Neck Exam Neck Exam: Full ROM, Normal Inspection. absent: Lymphadenopathy - Respiratory Exam Respiratory Exam: Clear to Ausculation Bilateral, NORMAL BREATHING PATTERN - Cardiovascular Exam Cardiovascular Exam: REGULAR RHYTHM, +S1, +S2, Murmur - GI/Abdominal Exam GI & Abdominal Exam: Soft, Normal Bowel Sounds. absent: Distended, Tenderness - Extremities Exam Extremities Exam: Full ROM, Normal Capillary Refill, Normal Inspection. absent: Joint Swelling, Pedal Edema - Neurological Exam Neurological Exam: Alert, Awake, CN II-XII Intact, Normal Gait, Oriented x3 - Skin Skin Exam: Dry, Intact, Normal Color, Warm Assessment and Plan - Assessment and Plan (Free Text) Assessment: 67 year old male with a PMH of dilated cardiomyopathy (EF 22%) s/p defibrillator, ESRD on HD MWF, DM2, Arthritis, HTN and Anemia of chronic disease/iron deficiency who is admitted with symptomatic anemia and bloody stool movement. s/p EGD and 2 colonoscopies which did not reveal site of active bleeding, but it seems the source was from the small intestine. H/H and BP stab le now. Meckel's scan did not show bleeding. Patient is pending transfer to [facility] pending bed availability. ESBL noted in the urine. Plan: 1. GI bleed - stable now - transfused 1u pRBC yesterday (Total 13) - for transfer to [facility] today after HD - monitor H/H - cont CLD 2. ESBL UTI - cont abx per ID - anuric due to ESRD 3. ESRD - cont HD MWF - Nephrology following - cont Renagel 4. CHFrEF s/p AICD - monitor for signs of fluid overload - cont midodrine - cont lipitor - cont amiodarone 5. DM2 - ISS 6. Iron deficiency anemia - venofer x1 during HD today 7. PPX - protonix for GI ppx - SCD for DVT ppx Case was reviewed and discussed with Dr. Thacker
[2018-06-27 07:50] VITALS: RESP 16
--- NOTE | 2018-06-27 08:38 | PN ---
DATE: 06/26/2018 SUBJECTIVE: The patient is seen in room 567, bed 2. The patient is sitting up out of bed to chair. The patient is still awaiting for transfer to [facility]. Overnight nurse's notes were reviewed. PHYSICAL EXAMINATION: VITAL SIGNS: T-max 98.3, pulse 70, blood pressure 115/70, respirations 16, O2 sat 98-99%. HEENT: Head, normocephalic, atraumatic. Pale conjunctivae. Anicteric sclerae. No oropharyngeal lesion. NECK: No neck rigidity. CHEST: Kyphosis. Positive left upper chest AICD. LUNGS: No audible crackle, rales, or wheezing. CARDIOVASCULAR: S1, S2, regular rhythm. Positive systolic murmur, left sternal border, right second intercostal space, left second intercostal space. ABDOMEN: Soft, positive bowel sound, no palpable hepatosplenomegaly. GENITALIA: Male, positive Long catheter. EXTREMITY: Positive left upper extremity AV fistula. Positive deformity of both hands noted. Lower extremity shows no pitting edema. No calf tenderness, no Homans' sign. NEUROLOGIC: The patient is alert, awake, oriented x3. Motor strength is 5/5. Gait examination is not tested. MUSCULOSKELETAL: Body mass index of 26. DIAGNOSTICS: On 06/26/2018, WBC 8.4, hemoglobin and hematocrit have dropped to 8.8 and 27.3, platelets 166, granulocytes 74% segs. Sodium 133, potassium 4.4, chloride 96, CO2 of 29, anion gap 13, BUN 23, creatinine 6.5, GFR 10, glucose 72, calcium 7.5, phosphorus 4.5, magnesium 1.9. LFTs are normal. Total protein 5.4, albumin 2.3. HIV is negative, hepatitis B surface antigen is negative. Repeat urine cultures and urine cultures from initially still growing extended spectrum beta lactamase Escherichia coli. IMPRESSION AND PLAN: 1. Status post massive gastrointestinal bleeding with acute blood loss anemia with hemoglobin dropping to 5.9. 2. Status post hypovolemic hypotensive hemorrhagic shock. 3. Status post packed red blood cell transfusion x4, status post fresh frozen plasma transfusion x5 and platelet transfusion x1. 4. Leukocytosis with granulocytosis. 5. Acute blood loss anemia with persistent decreasing hemoglobin and hematocrit. 6. Granulocytosis. 7. End-stage renal disease, hemodialysis dependent. 8. Hypovitaminosis D. 9. Mild protein malnutrition and hypoalbuminemia. 10. Hyperphosphatemia with secondary hyperparathyroidism. 11. Possible iron-deficiency anemia with decreased iron and decreased iron saturation. 12. Extended spectrum beta lactamase Escherichia coli urinary tract infection with proteinuria, glycosuria, ketonuria, hematuria, pyuria, bacteriuria. 13. Dilated cardiomyopathy, status post automated implantable cardioverter defibrillator implant. 14. Right axis deviation. 15. History of endocarditis. 16. Possible small bowel bleeding. 17. Sigmoid colon, descending colon diverticulosis. 18. Clotted blood in the entire colon and red blood in the ileum with blood clots in the ilium. 19. Probable small bowel bleeding. 20. Terminal ileum red blood with small blood clots. 21. Red blood with blood clots in the entire. 22. Internal hemorrhoids, grade 1. 23. Gastric food residue. 24. History of hypotension. 25. Prostatic hypertrophy. 26. Hyperlipidemia. PLAN: At this time, the patient has been awaiting acceptance to [facility]. CURRENT CONSULTATION: Gastroenterology, Nephrology, Cardiology, Infectious Disease, Surgery. CURRENT MEDICATIONS: Amiodarone 200 mg daily, Flomax 0.4 mg daily, Humulin sliding scale coverage, meropenem 250 mg IV every 12 hours, Nephro-Tyson 1 tablet daily, midodrine 5 mg three times a day, Protonix 40 mg daily, Renagel 800 mg twice a day, Tylenol p.r.n. The patient is on liquid diet. The patient has been ordered of 1 unit of PRBC today for a goal hemoglobin around 10 g. The patient's overnight prognosis is guarded to poor which the patient is aware of. At present, the patient's further management will be dependent upon the patient's clinical condition, hemodynamic status and as per further intervention and treatment at [facility]. Dictated and electronically signed, not read. Geoffrey Thacker MD
--- NOTE | 2018-06-27 08:53 | PN ---
DATE: 06/25/2018 SUBJECTIVE: The patient is now transferred out of the ICU to room 567, bed 2. The patient is seen lying in the bed. The patient is alert, awake and responsive. The patient denies any chest pain. Denies shortness of breath. Denies nausea. Denies vomiting. Denies hemoptysis. Denies melena. Denies any rectal bleeding. The patient is seen lying in the bed. The patient is comfortable, in no distress, having breakfast. PHYSICAL EXAMINATION: VITAL SIGNS: T-max 98.5, heart rate 73 to 118, respirations 17 to 15, O2 saturation is 100%, last blood pressure is from yesterday 06/24/2018. No vital signs are documented since more than 12 hours. Last blood pressure 91/54, 152/117, 103/62. GENERAL: The patient is seen lying in the bed. HEENT: Head examination is normocephalic and atraumatic. Pinkish, pale conjunctivae. Anicteric sclerae. No oropharyngeal lesion. NECK: No neck rigidity. CHEST: Kyphosis. LUNGS: No audible crackles, rales or wheezing. CARDIOVASCULAR: S1 and S2. Regular rhythm. Positive systolic murmur, left sternal border, right second intercostal space, left second intercostal space. ABDOMEN: Soft. Positive bowel sounds. No palpable hepatosplenomegaly. GENITALIA: Male. RECTAL: Deferred. EXTREMITIES: Positive left upper extremity AV fistula. Lower extremity shows no pitting edema. No calf tenderness. No Homans' sign. Positive contractures of both hands noted. Positive Long catheter noted. MUSCULOSKELETAL: Body mass index of 26. DIAGNOSTIC DATA: On 06/25/2018, WBC 8.2, hemoglobin and hematocrit 9.5 and 29, platelets 189, granulocytes 74% segs. Sodium 133, potassium 4.1, chloride 97, CO2 of 31, anion gap 9, BUN 17, creatinine 5, GFR 12, glucose 71, calcium 7.9, phosphorus 4, magnesium 1.9, total protein 5.7, albumin 2.5, hepatitis B surface antigen and HIV-1 in second and fourth generation, nonreactive. Repeat blood cultures negative. IMPRESSION AND PLAN: 1. Acute blood loss anemia secondary to gastrointestinal bleeding. 2. Status post packed red blood cell transfusion x12 and fresh frozen plasma transfusion x5 and platelet transfusion x1. 3. Tachycardia. 4. Hypotension. 5. Status post hypotensive, hypovolemia, hemorrhagic shock. 6. Normocytic anemia. 7. Granulocytosis. 8. End-stage renal disease, hemodialysis dependent. 9. Mild high-protein malnutrition. 10. Hypoalbuminemia. 11. Hypovitaminosis D. 12. Secondary hypoparathyroidism with elevated parathyroid hormone. 13. Extended spectrum beta lactamase Escherichia coli urinary tract infection with proteinuria, glycosuria, ketonuria, microbial hematuria, pyuria, bacteruria. 14. Status post automatic implantable cardioverter defibrillator implant. 15. Bilateral hands rheumatoid arthritis. 16. Dilated cardiomyopathy, status post automatic implantable cardioverter defibrillator implant. 17. Sigmoid and descending colon diverticulosis. 18. Internal hemorrhoids. 19. Colonic and ileal blood. 20. Possible small bowel bleeding. 21. Blood and blood clots noted in terminal ileum. PLAN AT THIS TIME: The patient is still awaiting transfer to [facility] for Interventional Gastroenterology service evaluation. Current consultations; Gastroenterology, Nephrology, Cardiology, Surgery, Infectious Disease. Current medications amiodarone 200 mg daily, Flomax 0.4 mg daily, Lipitor 40 mg daily, meropenem 250 mg IV every 12 hours, Nephro-Tyson one tablet daily, midodrine 5 mg three times a day, Protonix 40 mg daily, Renagel 800 mg twice a day, Tylenol 650 mg p.o. every 6 hours p.r.n. The patient received a dose of Venofer 100 mg yesterday by Nephrology. The patient is on liquid diet, out of bed to chair. Physical therapy and occupational therapy ordered. The patient has been updated about his condition, diagnosis, test results, recommendations. At present, the patient is awaiting for transfer to [facility]. Geoffrey Thacker MD
[2018-06-27] MEDS ORDERED: Iron Sucrose 100 mg/5 ml Inj IVP ONE (09:00)
[2018-06-27 09:12] LABS: BASO # 0.05 K/mm3 (0.0-2.0); BASO % 0.6 % (0.0-3.0); EOS # 0.4 (0.0-0.7); EOS % 5.6 % (1.5-5.0); HEMOGLOBIN 9.4 g/dL (14.0-18.0); LYMPH # 0.6 (1.2-3.4); LYMPH % 7.7 % (22.0-35.0); MEAN CELL VOLUME 90.9 fl (80.0-105.0); MEAN CORPUSCULAR HEMOGLOBIN 29.6 pg (25.0-35.0); MEAN CORPUSCULAR HGB CONC 32.5 g/dl (31.0-37.0); MEAN PLATELET VOLUME 9.3 fl (7.0-11.0); MONO # 0.8 (0.1-0.6); MONO % 10.4 % (1.0-6.0); RBC 3.18 10^6/uL (3.5-6.1); RED CELL DISTRIBUTION WIDTH 14.5 % (11.5-14.5); WHITE BLOOD COUNT 7.9 10^3/uL (4.5-11.0)
[2018-06-27 09:22] LABS: ALB/GLOB RATIO 0.8 (1.1-1.8); ALBUMIN 2.6 g/dL (3.0-4.8); BILIRUBIN,DIRECT 0.7 mg/dL (0.0-0.4); CALCIUM 7.4 mg/dL (8.4-10.5)
--- NOTE | 2018-06-27 12:07 | CP.PCM.PN ---
<Yesica Rangel - Last Filed: 06/27/18 12:31> Subjective - Date & Time of Evaluation Date of Evaluation: 06/27/18 Time of Evaluation: 12:04 - Subjective Subjective: Gastroenterology Fellow/PGY6 Progress Note Patient resting comfortably. Denies melena or hematochezia. Tolerating diet. A 12-point review of systems negative except for as above. Objective - Vital Signs/Intake and Output Vital Signs (last 24 hours): Temp Pulse Resp BP Pulse Ox 98.2 F 65 16 110/74 96 06/27/18 06:00 06/27/18 06:00 06/27/18 06:00 06/27/18 06:00 06/27/18 06:00 Intake and Output: 06/27/18 06/27/18 06:59 18:59 Intake Total 880 Output Total 50 Balance 830 - Medications Medications: Current Medications Acetaminophen (Tylenol 325mg Tab) 650 mg PO Q6H PRN PRN Reason: Pain, moderate (4-7) Last Admin: 06/18/18 21:10 Dose: 650 mg Amiodarone HCl (Cordarone) 200 mg PO DAILY [facility] Last Admin: 06/26/18 10:51 Dose: 200 mg Atorvastatin Calcium (Lipitor) 40 mg PO DIN [facility] Last Admin: 06/26/18 17:24 Dose: 40 mg Insulin Human Regular (Humulin R Low) 0 units SC [facility]; Protocol Last Admin: 06/26/18 22:18 Dose: Not Given Midodrine (Proamatine) 5 mg PO 0800,1200,1600 [facility] Last Admin: 06/26/18 17:24 Dose: 5 mg Pantoprazole Sodium (Protonix Ec Tab) 40 mg PO ACB [facility] Last Admin: 06/26/18 08:13 Dose: 40 mg Sevelamer HCl (Renagel) 800 mg PO BID [facility] Last Admin: 06/26/18 17:24 Dose: 800 mg Tamsulosin HCl (Flomax) 0.4 mg PO DAILY [facility] Last Admin: 06/26/18 10:51 Dose: 0.4 mg Vitamin B Complex/Vit C/Folic Acid (Nephro-Tyson) 1 tab PO DAILY [facility] Last Admin: 06/26/18 10:52 Dose: 1 tab - Labs Labs: 06/27/18 08:40 06/27/18 08:40 PT 13.7 SECONDS (9.4-12.5) H 06/20/18 08:15 INR 1.21 06/20/18 08:15 APTT 35.4 Seconds (26.9-38.3) 06/15/18 11:00 - Constitutional Appears: Non-toxic, No Acute Distress - Head Exam Head Exam: ATRAUMATIC, NORMOCEPHALIC - Eye Exam Eye Exam: EOMI, PERRL. absent: Scleral icterus Pupil Exam: PERRL. absent: Miosis, Mydriatic - ENT Exam ENT Exam: Mucous Membranes Moist, Normal Oropharynx - Neck Exam Neck Exam: Full ROM, Normal Inspection - Respiratory Exam Respiratory Exam: Clear to Ausculation Bilateral. absent: Rales, Rhonchi, Wheezes - Cardiovascular Exam Cardiovascular Exam: RRR, +S1, +S2. absent: Gallop, Rubs - GI/Abdominal Exam GI & Abdominal Exam: Soft, Normal Bowel Sounds. 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 Active treatment of symptomatic anemia s/p 13Units pRBCs without signs of bleeding on EGD 06/17 and extensive blood/clots on colonoscopy without signs of active bleeding. Blood noted in terminal ileum on initial colonoscopy concerning for "backwash" with repeat colonoscopy on 06/17 showing fresh blood in terminal ileum suspicious for small bowel bleed. 01/2018 EGD- normal esophagus, benign 3mm esophageal squamous papilloma at 35cm from incisors, H. pylori negative gastritis, and normal duodenal biopsies 01/2018 Colonoscopy (Dr. Redmond)- few small cecal AVMs s/p BiPolar cautery (no documentation of active bleeding), mild sigmoid diverticulosis, and medium-sized internal hemorrhoids. Plan: -confirmed patient to be transferred today to [facility] with transfer center and GI team with known contact isolation for ESBL UTI -extensive discussion held with patient at bedside in terms of GI team care to date and long-term plan to be determined after inpatient capsule endoscopy at [facility] -contacted patient's to provide update on transfer today after hemodialysis completed -contacted primary team to update on status of transfer planned for today -last sign of overt acute GI bleed since 06/23-5 -last pRBC on 06/26, H/H stable -hemodynamically stable -ID managing- day 9 meropenem, repeat urine culture on 06/26 pending -plan to follow up on transfer for today after hemodialysis completed <Foreign Wynn V - Last Filed: 06/28/18 01:02> Objective - Vital Signs/Intake and Output Vital Signs (last 24 hours): Temp Pulse Resp BP Pulse Ox 97.8 F 74 16 119/71 98 06/27/18 14:00 06/27/18 14:00 06/27/18 14:00 06/27/18 14:00 06/27/18 14:00 - Labs Labs: 06/27/18 12:45 06/27/18 08:40 PT 14.3 SECONDS (9.4-12.5) H 06/27/18 12:45 INR 1.27 06/27/18 12:45 APTT 33.6 Seconds (26.9-38.3) 06/27/18 12:45 Attending/Attestation - Attestation I have personally seen and examined this patient.: Yes I have fully participated in the care of the patient.: Yes I have reviewed all pertinent clinical information, including history, physical exam and plan: Yes Notes (Text): This patient was evaluated here earlier and discussed with the fellow nursing staff. Patient is found to have a for transfer to [facility]. The events and dialysis unit noted. Discussed with the Dr. Young risk management specialist. 06/28/18 01:01
--- NOTE | 2018-06-27 13:12 | PCM.RRT ---
GAS SINGER Nurse Assessment - Situation Date: 06/27/18 Time GAS SINGER was called: 12:30 GAS SINGER Responder Arrival Time: 12:33 GAS SINGER Location:: Renal Dialysis - Constitutional Appears: Well, Non-toxic, No Acute Distress - Head Head Exam: ATRAUMATIC, NORMAL INSPECTION, NORMOCEPHALIC - Eyes Eye Exam: EOMI, Normal appearance, PERRL - Respiratory Exam Respiratory Exam: Clear to Ausculation Bilateral, NORMAL BREATHING PATTERN. absent: Chest Wall Tenderness, Decreased Breath Sounds, Prolonged Expiratory Phase, Wheezes, Respiratory Distress - Cardiovascular Exam Cardiovascular Exam: RRR, +S1, +S2. absent: Tachycardia - GI/Abdominal Exam GI & Abdominal Exam: Soft. absent: Distended, Firm, Guarding, Rigid, Tenderness - Neurological Exam Neurological Exam: Alert, Awake, Oriented x3 - Extremities Exam Extremities Exam: Full ROM, Normal Capillary Refill Additional comments: Continuous bleeding from L forearm fistula site at completion of HD session. Plan - Assessment of Findings&Treatment Plan S: 67 year old male with a PMHx of dilated cardiomyopathy (EF 22%) s/p defibrillator, ESRD on HD MWF, DM2, Arthritis, HTN and Anemia of chronic disease/iron deficiency who is admitted with symptomatic anemia and bloody stool movement. s/p EGD and 2 colonoscopies which did not reveal site of active bleeding, but it seems the source was from the small intestine. Meckel's scan did not show bleeding. Patient is pending transfer to [facility] pending bed availabili ty. Patient near end of HD session had bleeding from L forearm fistula site. O: AAOx3 in NAD BP 130/69, HR 80, 96% on RA RRR + S1S2, b/l UE and LE pulses intact Lungs CTABL A&P: Bleeding stopped with direct guaze pressure to site. All anti-coagulation products has already been held due to high likelihood of lower GI bleed. F/U repeat H/H, which has remained stable. F/U repeat Coagulation profile Continue to monitor HR and BP. PMD notified. Patient transferred back to room in no acute distress with hemostasis. Awaiting transfer to [facility] if remains hemodynamically stable. Patient seen, case reviewed and plan approved by Dr. Yeimi Doty. Angel Rodriguez, PGY-1
[2018-06-27 13:19] LABS: HEMOGLOBIN 9.9 g/dL (14.0-18.0)
[2018-06-27 13:36] LABS: INR 1.27; PARTIAL THROMBOPLASTIN TIME 33.6 Seconds (26.9-38.3); PROTHROMBIN TIME 14.3 SECONDS (9.4-12.5)
[2018-06-27] MEDS: Multivitamin Vitamin B Complex (Nephro-Vite) Tab PO SCH (14:15)
[2018-06-27] MEDS: Pantoprazole 40 mg EC Tab PO SCH (14:15)
[2018-06-27] MEDS: Insulin Reg-LOW-Coverage SC SCH (14:16)
[2018-06-27 15:28] VITALS: BP 119/71; PULSE 74; TEMP 97.8; O2SAT 98
--- NOTE | 2018-06-27 15:28 | PN ---
DATE: 06/27/2018 SUBJECTIVE: The patient is in no acute distress. No dark stools noted. PHYSICAL EXAMINATION: VITAL SIGNS: Blood pressure 110/74, heart rate is in the 60s. NECK: Negative JVD. LUNGS: Without rales. HEART: S1, S2. EXTREMITIES: Without edema. LABORATORY DATA: Hemoglobin is 9.4. Chemistries, BUN and creatinine 29 and 7.6. IMPRESSION: 1. Status post gastrointestinal bleed. 2. Anemia. 3. End-stage renal disease. 4. Cardiomyopathy. PLAN: Given these findings, there is no active bleeding at this time. Hemoglobin is stable. The patient is hemodynamically stable. Kamari Watt MD
--- NOTE | 2018-06-27 19:38 | PN ---
DATE: 06/27/2018 SUBJECTIVE: The patient is seen lying in bed. He is awake. He is alert. He denies any chest pain. PHYSICAL EXAMINATION GENERAL: Elderly male lying in bed. VITAL SIGNS: Blood pressure 110/74, heart rate 65, respiratory rate 16, temperature 98.2. HEENT: Normocephalic, atraumatic, positive pallor. NECK: Supple, no JVD. LUNGS: Bilateral equal air entry, bilateral equal expansion, no rales. CARDIOPULMONARY: S1, S2, regular rate and rhythm, no murmur, no rub. ABDOMEN: Soft, nondistended, nontender, bowel sounds present. EXTREMITIES: No lower extremity edema. LABORATORY DATA WBC 7.9, hemoglobin 9.4, hematocrit 28.9, platelets 157. Sodium 130, potassium 5.1, chloride 97, CO2 of 24, BUN 29, creatinine 7.6, glucose 85, calcium 7.4, phosphorus 4.9, magnesium 1.9, albumin 2.6. Urinalysis; red, cloudy, pH 8.0, specific gravity 1.020, protein greater than 300, ketones negative, blood large, nitrite positive, moderate bilirubin, leukocyte esterase moderate, numerous rbcs, 10 to 15 wbcs. CURRENT MEDICATIONS: Cordarone 200 mg, Flomax, insulin, Lipitor 40 mg, Nephro-Tyson, ProAmatine 5 mg t.i.d., Protonix, Renagel 800 mg b.i.d., Tylenol. ASSESSMENT 1. Severe life-threatening gastrointestinal bleed, the patient required 12 units of packed red blood cells, some fresh frozen plasma. 2. Noninsulin-dependent diabetes mellitus. 3. Cardiomyopathy with decreased ejection fraction. 4. End-stage renal disease. 5. Peripheral artery disease. 6. Extended-spectrum beta-lactamase in urine. PLAN 1. The patient had dialysis today, at the end of dialysis there was excessive bleeding. The bleeding was difficult to control, but repeat hemoglobin is stable. 2. Awaiting transfer to [facility] for balloon enteroscopy. 3. Continue to monitor H&H. 4. Monitor fingersticks. 5. Continue antibiotics. 6. Continue ProAmatine. Grecia Young MD
--- NOTE | 2018-06-28 03:10 | CP.PCM.DIS ---
Provider - Provider Date of Admission: 06/15/18 12:02 Attending physician: Geoffrey Thacker MD Primary care physician: Geoffrey Thacker MD Consults: 06/15/18 11:59 Nephrology Consult Stat Comment: Consulting Provider: Grecia Young Consulting Physician: Grecia Young Reason for Consult: anemia, esrd on hd 06/15/18 12:00 Gastroenterology Consult Stat Comment: anemia Consulting Provider: Foreign Wynn V Consulting Physician: Foreign Wynn V Reason for Consult: anemia, bright red blood per rectum 06/15/18 16:51 Critical Care Consult Routine Comment: Consulting Provider: Fuad Bruner Consulting Physician: Fuad Bruner Reason for Consult: symptomatic anemia, active GI bleed w/ hypotension 06/15/18 17:05 General Surgery Consult Routine Comment: Consulting Provider: Roge Winter Consulting Physician: Roge Winter Reason for Consult: hemorrhagic shock, LGIB 06/15/18 17:11 Cardiology Consult Routine Comment: Consulting Provider: Kamari Watt Consulting Physician: Kamari Watt Reason for Consult: biventricular failure, intraventricular thrombus? 06/19/18 11:51 Infectious Disease Consult Routine Comment: Consulting Provider: Charlie Taylor Consulting Physician: Charlie Taylor Reason for Consult: UTI Hospital Course - Lab Results Lab Results: Micro Results 06/26/18 15:00 Urine,Long Urine Culture - Final No Growth (<1,000 CFU/ML) 06/24/18 10:20 Urine,Catheterized Urine Culture - Final Escherichia Coli 06/23/18 20:30 Urine Random Urine Culture - Final Escherichia Coli 06/19/18 22:30 Blood Blood Culture - Final NO GROWTH AFTER 5 DAYS 06/19/18 22:30 Blood Gram Stain - Final TEST NOT PERFORMED 06/19/18 22:00 Blood Blood Culture - Final NO GROWTH AFTER 5 DAYS 06/19/18 22:00 Blood Gram Stain - Final TEST NOT PERFORMED 06/19/18 15:00 Urine Random Urine Culture - Final Escherichia Coli 06/15/18 18:25 Naris MRSA Culture (Admit) - Final MRSA NOT DETECTED Most Recent Lab Values WBC 7.9 10^3/uL (4.5-11.0) 06/27/18 08:40 RBC 3.18 10^6/uL (3.5-6.1) L 06/27/18 08:40 Hgb 9.9 g/dL (14.0-18.0) L 06/27/18 12:45 Hct 30.5 % (42.0-52.0) L 06/27/18 12:45 MCV 90.9 fl (80.0-105.0) 06/27/18 08:40 MCH 29.6 pg (25.0-35.0) 06/27/18 08:40 MCHC 32.5 g/dl (31.0-37.0) 06/27/18 08:40 RDW 14.5 % (11.5-14.5) 06/27/18 08:40 Plt Count 157 10^3/uL (120.0-450.0) 06/27/18 08:40 MPV 9.3 fl (7.0-11.0) 06/27/18 08:40 Neut % (Auto) 75.7 % (50.0-68.0) H 06/27/18 08:40 Lymph % (Auto) 7.7 % (22.0-35.0) L 06/27/18 08:40 [place] % (Auto) 10.4 % (1.0-6.0) H 06/27/18 08:40 Eos % (Auto) 5.6 % (1.5-5.0) H 06/27/18 08:40 Baso % (Auto) 0.6 % (0.0-3.0) 06/27/18 08:40 Lymph # (Auto) 0.6 (1.2-3.4) L 06/27/18 08:40 [place] # (Auto) 0.8 (0.1-0.6) H 06/27/18 08:40 Eos # (Auto) 0.4 (0.0-0.7) 06/27/18 08:40 Baso # (Auto) 0.05 K/mm3 (0.0-2.0) 06/27/18 08:40 Absolute Neuts (auto) 6.00 (1.4-6.5) 06/27/18 08:40 Neutrophils % (Manual) 93 % (50.0-70.0) H 06/20/18 08:15 Lymphocytes % (Manual) 5 % (22.0-35.0) L 06/20/18 08:15 Monocytes % (Manual) 1 % (1.0-6.0) 06/20/18 08:15 Eosinophils % (Manual) 1 % (0.0-3.0) 06/20/18 08:15 Platelet Evaluation Normal (NORMAL) 06/20/18 08:15 PT 14.3 SECONDS (9.4-12.5) H 06/27/18 12:45 INR 1.27 06/27/18 12:45 APTT 33.6 Seconds (26.9-38.3) 06/27/18 12:45 pO2 228 mm/Hg (30-55) H 06/16/18 12:30 VBG pH 7.45 (7.32-7.43) H 06/16/18 12:30 VBG pCO2 39.0 (40-60) L 06/16/18 12:30 VBG HCO3 27.1 mmol/l (21-28) 06/16/18 12:30 VBG Total CO2 28.3 mmol.L (22-28) H 06/16/18 12:30 VBG O2 Sat (Calc) 97.8 % (40-65) H 06/16/18 12:30 VBG Base Excess 3.0 mmol/L (0.0-2.0) H 06/16/18 12:30 VBG Potassium 4.5 mmol/L (3.6-5.2) 06/16/18 12:30 Sodium 138.0 mmol/L (132-148) 06/16/18 12:30 Chloride 106.0 mmol/L (98-107) 06/16/18 12:30 Glucose 83 mg/dl (75-110) 06/16/18 12:30 Lactate 0.9 mmol/L (0.7-2.1) 06/16/18 12:30 FiO2 21.0 % 06/16/18 12:30 Sodium 130 mmol/L (132-148) L 06/27/18 08:40 Potassium 5.1 mmol/L (3.6-5.0) H 06/27/18 08:40 Chloride 97 mmol/L (98-107) L 06/27/18 08:40 Carbon Dioxide 24 mmol/L (21-33) 06/27/18 08:40 Anion Gap 14 (10-20) 06/27/18 08:40 BUN 29 mg/dL (7-21) H 06/27/18 08:40 Creatinine 7.6 mg/dl (0.8-1.5) H* 06/27/18 08:40 Est GFR ( Amer) 9 06/27/18 08:40 Est GFR (Non-Af Amer) 7 06/27/18 08:40 POC Glucose (mg/dL) 78 mg/dL (65-110) 06/27/18 13:30 Random Glucose 85 mg/dL (70-110) 06/27/18 08:40 Calcium 7.4 mg/dL (8.4-10.5) L 06/27/18 08:40 Phosphorus 4.9 mg/dL (2.5-4.5) H 06/27/18 08:40 Magnesium 1.9 mg/dL (1.7-2.2) 06/27/18 08:40 Iron 13 ug/dL (45-180) L 06/20/18 11:40 TIBC 175 ug/dL (261-462) L 06/20/18 11:40 % Saturation 7 % (20-55) L 06/20/18 11:40 Ferritin 434.0 ng/mL 06/20/18 11:40 Total Bilirubin 0.7 mg/dL (0.2-1.3) 06/27/18 08:40 Direct Bilirubin 0.7 mg/dL (0.0-0.4) H 06/27/18 08:40 AST 29 U/L (17-59) 06/27/18 08:40 ALT 15 U/L (7-56) 06/27/18 08:40 Alkaline Phosphatase 86 U/L (38-126) 06/27/18 08:40 Troponin I 0.09 ng/mL D 06/15/18 18:05 Total Protein 5.8 g/dL (5.8-8.3) 06/27/18 08:40 Albumin 2.6 g/dL (3.0-4.8) L 06/27/18 08:40 Globulin 3.1 gm/dL 06/27/18 08:40 Albumin/Globulin Ratio 0.8 (1.1-1.8) L 06/27/18 08:40 25-OH Vitamin D Total 21.4 NG/ML (30.0-100.0) L 06/21/18 05:20 PTH Intact Whole Molec 104 pg/mL (14-64) H 06/20/18 11:40 Venous Blood Potassium 4.5 mmol/L (3.6-5.2) 06/16/18 12:30 Urine Color Red (YELLOW) 06/26/18 15:00 Urine Appearance Cloudy (CLEAR) 06/26/18 15:00 Urine pH 8.0 (4.7-8.0) 06/26/18 15:00 Ur Specific Gregory 1.020 (1.005-1.035) 06/26/18 15:00 Urine Protein >=300 mg/dL (<30 mg/dL) H 06/26/18 15:00 Urine Glucose (UA) 100 mg/dL (NEGATIVE) H 06/26/18 15:00 Urine Ketones Negative mg/dL (NEGATIVE) 06/26/18 15:00 Urine Blood Large (NEGATIVE) H 06/26/18 15:00 Urine Nitrate Positive (NEGATIVE) H 06/26/18 15:00 Urine Bilirubin Moderate (NEGATIVE) H 06/26/18 15:00 Urine Urobilinogen 1.0 E.U./dL (<1 E.U./dL) H 06/26/18 15:00 Ur Leukocyte Esterase Moderate Caio/uL (NEGATIVE) H 06/26/18 15:00 Urine RBC Tntc /hpf (0-2) H 06/26/18 15:00 Urine WBC 10 - 15 /hpf (0-6) H 06/26/18 15:00 Ur Epithelial Cells Many /hpf (0-5) H 06/26/18 15:00 Amorphous Sediment Small /hpf (NONE) 06/26/18 15:00 Urine Bacteria Many /hpf (NONE) 06/19/18 15:02 Hep Bs Antigen Negative (NEGATIVE) 06/20/18 11:40 HIV 1&2 Ag/Ab, 4th Gen Nonreactive (Nonreactive) 06/21/18 08:45 Blood Type A POSITIVE 06/26/18 12:30 Antibody Screen Negative 06/26/18 12:30 Crossmatch See Detail 06/26/18 12:30 BBK History Checked Patient has bt 06/26/18 12:30 Discharge Exam - Head Exam Head Exam: ATRAUMATIC, NORMAL INSPECTION, NORMOCEPHALIC Discharge Plan - Follow Up Plan Condition: FAIR Disposition: OTHER INSTITUTION Additional Instructions: DISCHARGE TO [facility] WHEN BED AVAILABLE FOLLOW UP WITHIN 1 WEEK AFTER DISCHARGE FROM [facility] Referrals: Geoffrey Thacker MD [Primary Care Provider] -
--- NOTE | 2018-06-28 04:27 | PN ---
DATE: 06/27/2018 SUBJECTIVE: The patient is in bed, in no acute distress, was seen earlier today in room 567, bed 2. No fevers. No chills. PHYSICAL EXAMINATION: VITAL SIGNS: Temperature is 98, blood pressure is 120/70, and respiratory rate is 16. HEENT: Unremarkable. NECK: Supple. LUNGS: Decreased breath sounds. HEART: Normal S1 and S2. ABDOMEN: Soft, nontender. LABORATORY EXAMINATION: Reviewed. ASSESSMENT AND PLAN: A 67-year-old male with extended-spectrum beta-lactamase Escherichia coli, continue meropenem, day #9, and we will follow with you. Recommendations as stated. Charlie Taylor MD
--- NOTE | 2018-06-28 08:35 | DS ---
FINAL PROGRESS NOTE AND DISCHARGE SUMMARY HISTORY OF PRESENT ILLNESS: The patient is finally accepted and will be transferred to [facility] today after hemodialysis. The patient was seen and examined in hemodialysis today. The patient is alert, awake, responsive, and in no distress. Lying in the bed. Overnight nurse's notes were reviewed. PHYSICAL EXAMINATION: VITAL SIGNS: T-max 98.2, pulse 65, blood pressure 110/74, respirations 16, and O2 sat 96%. HEENT: Head; normocephalic and atraumatic. HEENT examination shows pinkish pale conjunctivae. Anicteric sclerae. No oropharyngeal lesion. Positive left upper extremity AV fistula, positive graft, positive dialysis catheter, and positive deformities of both hands noted. CARDIOVASCULAR: S1 and S2, regular rhythm. Positive systolic murmur left sternal border, right second intercostal space, left second intercostal space. Positive upper chest ICD noted. CHEST: Kyphosis. LUNGS: Show decreased breath sound at the bases, left more than the right. ABDOMEN: Soft. Positive bowel sounds. No palpable hepatosplenomegaly. GENITALIA: Male. RECTAL: Deferred. Positive Long catheter. EXTREMITIES: Lower extremity shows no pitting edema. No calf tenderness. No Homans sign. NEUROLOGIC: The patient is alert, awake, responsive, and is able to move upper and lower extremity without assistance. Gait examination is not tested. PSYCHIATRIC: Negative for anxiety or depression. Negative for suicidal or homicidal ideation. Negative for auditory or visual hallucination. DIAGNOSTIC DATA: On 06/27/2018; WBC 7.9, hemoglobin and hematocrit 9.4 and 28.9, platelets 157, and granulocytes 75% segs. Sodium 130, potassium 5.1, chloride 97, CO2 of 24, anion gap 14, BUN 29, creatinine 7.6, GFR 9, glucose 85, calcium 7.4, phosphorus 4.9, magnesium 1.9, and albumin 2.6. Microbiology; urine cultures 06/19/2018, 06/23/2018, and 06/24/2018; ESBL Escherichia coli urinary tract infection. FINAL IMPRESSION, PLAN, AND DISCHARGE DIAGNOSES: 1. Status post hypovolemic hemorrhagic hypotensive shock. 2. Massive enlarged gastrointestinal bleeding with acute blood loss anemia. 3. Hypotension. 4. Transient tachycardia. 5. Severe and massive lower gastrointestinal bleeding with acute blood loss anemia with hemoglobin decreasing to 5.9. 6. Leukocytosis. 7. Granulocytosis. 8. Mild coagulopathy. 9. Nonhemolyzed hyperkalemia. 10. End-stage renal disease, hemodialysis dependent three times a week. 11. Hyperphosphatemia. 12. Hypocalcemia. 13. Mild protein malnutrition. 14. Hypoalbuminemia. 15. Hypovitaminosis D. 16. Secondary hyperparathyroidism with elevated PTH level. 17. Recurrent persistent extended-spectrum beta-lactamases Escherichia coli urinary tract infection with proteinuria, glycosuria, microscopic hematuria, pyuria, and bacteriuria. 18. Status post packed red blood cell transfusion x13, fresh frozen plasma transfusion x5, and platelet transfusion 1. 19. Dilated cardiomyopathy with status post automatic implantable cardioverter-defibrillator implant. 20. Cardiomegaly with dilated cardiomyopathy. 21. Status post automatic implantable cardioverter-defibrillator implant. 22. Cholelithiasis. 23. Urinary bladder mural thickening, questionable cystitis versus bladder outlet obstruction. 24. Prostatomegaly. 25. Degenerative lumbar spine disk disease of L5-S1. 26. Deconditioning. 27. Bilateral rheumatoid arthritis of both hands. 28. Possible small bowel bleed. 29. History of hypertension. 30. Hyperlipidemia. 31. Renal osteodystrophy. 32. Possible iron deficiency. Plan at this time, the patient is to be transferred according to the nurse's note. The patient is to be transferred to [address] after dialysis can be completed. The patient's current medications are amiodarone 200 mg daily, Flomax 0.4 mg daily, sliding scale low-dose insulin coverage, Lipitor 40 mg daily, Nephro-Tyson 1 tablet daily, Flomax 0.4 mg daily, ProAmatine 5 mg three times a day, Protonix 40 mg daily, Renagel, and Renvela 800 mg twice a day. The patient's aspirin and antiplatelet therapy is stopped at this time. The patient is discharged to [facility]. The patient is advised to follow up within 1 week after discharge from [facility]. During this hospitalization, the patient was extensively explained about the details of his medical condition, diagnosis, test results, and recommendations by all the physician at length and all questions concerned answered, which he acknowledged and understood. Time spent in the discharge management more than 45 minutes. Dictated and electronically signed, not read. Geoffrey MD [facility] # [id number]
== END 2018-06-27 17:11 | disposition short-term general hospital (02) | DRG 377 ==
LOC: ED 10:38 → ERH 12:02 → CCU 18:38 → 5RNO 06-24 17:34
PROVIDERS: ADMIT Internal Medicine; ATTEND Internal Medicine
PROC: 30233N1 Transfusion of Nonautologous Red Blood Cells into Peripheral Vein, Percutaneous Approach (ICD-10-PCS; 2018-06-15)
PROC: 5A1D70Z Performance of Urinary Filtration, Intermittent, Less than 6 Hours Per Day (ICD-10-PCS; 2018-06-15)
PROC: 0DJ08ZZ Inspection of Upper Intestinal Tract, Via Natural or Artificial Opening Endoscopic (ICD-10-PCS; 2018-06-16)
PROC: 30233K1 Transfusion of Nonautologous Frozen Plasma into Peripheral Vein, Percutaneous Approach (ICD-10-PCS; 2018-06-16)
PROC: 0DJD8ZZ Inspection of Lower Intestinal Tract, Via Natural or Artificial Opening Endoscopic (ICD-10-PCS; 2018-06-16 15:00)
PROC: 5A1D70Z Performance of Urinary Filtration, Intermittent, Less than 6 Hours Per Day (ICD-10-PCS; 2018-06-17)
PROC: 0DJD8ZZ Inspection of Lower Intestinal Tract, Via Natural or Artificial Opening Endoscopic (ICD-10-PCS; principal; 2018-06-17 14:00)
PROC: 6A550Z2 Pheresis of Platelets, Single (ICD-10-PCS; 2018-06-18)
PROC: 5A1D70Z Performance of Urinary Filtration, Intermittent, Less than 6 Hours Per Day (ICD-10-PCS; 2018-06-18)
PROC: 5A1D70Z Performance of Urinary Filtration, Intermittent, Less than 6 Hours Per Day (ICD-10-PCS; 2018-06-20)
PROC: 5A1D70Z Performance of Urinary Filtration, Intermittent, Less than 6 Hours Per Day (ICD-10-PCS; 2018-06-22)
PROC: 5A1D70Z Performance of Urinary Filtration, Intermittent, Less than 6 Hours Per Day (ICD-10-PCS; 2018-06-24)
PROC: 5A1D70Z Performance of Urinary Filtration, Intermittent, Less than 6 Hours Per Day (ICD-10-PCS; 2018-06-27)
DX: K92.2 Gastrointestinal hemorrhage, unspecified (principal); N18.6 End stage renal disease; R57.8 Other shock; I42.0 Dilated cardiomyopathy; I13.2 Hypertensive heart and chronic kidney disease with heart failure and with stage 5 chronic kidney disease, or end stage renal disease; D62 Acute posthemorrhagic anemia; N25.81 Secondary hyperparathyroidism of renal origin; N39.0 Urinary tract infection, site not specified; E44.1 Mild protein-calorie malnutrition; T82.838A Hemorrhage due to vascular prosthetic devices, implants and grafts, initial encounter; D68.9 Coagulation defect, unspecified; Z68.41 Body mass index [BMI] 40.0-44.9, adult; Q43.8 Other specified congenital malformations of intestine; K92.1 Melena; D63.8 Anemia in other chronic diseases classified elsewhere; E11.22 Type 2 diabetes mellitus with diabetic chronic kidney disease; N40.0 Benign prostatic hyperplasia without lower urinary tract symptoms; I95.89 Other hypotension; F17.290 Nicotine dependence, other tobacco product, uncomplicated; I25.10 Atherosclerotic heart disease of native coronary artery without angina pectoris; Z99.2 Dependence on renal dialysis; Z95.810 Presence of automatic (implantable) cardiac defibrillator; I50.82 Biventricular heart failure; D69.6 Thrombocytopenia, unspecified; B96.20 Unspecified Escherichia coli [E. coli] as the cause of diseases classified elsewhere; D63.1 Anemia in chronic kidney disease; E20.8 Other hypoparathyroidism; D46.4 Refractory anemia, unspecified; E11.51 Type 2 diabetes mellitus with diabetic peripheral angiopathy without gangrene; E55.9 Vitamin D deficiency, unspecified; E66.01 Morbid (severe) obesity due to excess calories; E77.8 Other disorders of glycoprotein metabolism; E78.5 Hyperlipidemia, unspecified; E87.5 Hyperkalemia; F32.89 Other specified depressive episodes; G47.33 Obstructive sleep apnea (adult) (pediatric); I08.1 Rheumatic disorders of both mitral and tricuspid valves; K29.70 Gastritis, unspecified, without bleeding; K57.30 Diverticulosis of large intestine without perforation or abscess without bleeding; K64.0 First degree hemorrhoids; K55.20 Angiodysplasia of colon without hemorrhage; K80.20 Calculus of gallbladder without cholecystitis without obstruction; M06.9 Rheumatoid arthritis, unspecified; M51.37 Other intervertebral disc degeneration, lumbosacral region; M54.30 Sciatica, unspecified side; N25.0 Renal osteodystrophy; Z16.12 Extended spectrum beta lactamase (ESBL) resistance; Z78.9 Other specified health status; Z79.82 Long term (current) use of aspirin; Z79.84 Long term (current) use of oral hypoglycemic drugs; Z79.899 Other long term (current) drug therapy; Z86.19 Personal history of other infectious and parasitic diseases; Z86.79 Personal history of other diseases of the circulatory system